=== PATIENT | female | born 1940 | race Caucasian/White ===

== ENCOUNTER 2018-08-03 13:09 | Inpatient (IN) ==
--- NOTE | 2018-08-03 13:26 | XRay Report ---
XR chest 1V portable HISTORY: 77 years-old Female Chest Pain acute atypical chest pain COMPARISON: None available TECHNIQUE: Portable AP view of the chest FINDINGS: Cardiac silhouette is mildly enlarged. Mild right hemidiaphragmatic elevation. There is no pneumothor ax, pleural effusion or overt pulmonary edema. Mild subsegmental left basilar atelectasis. There are possible pleural calcifications about the right hemithorax Degenerative changes of the shoulders and spine. IMPRESSION: No acute process. The above report was generated using voice recognition software. It may contain grammatical, syntax o r spelling errors. Electronically signed by: Dallas Shine M.D. 08/03/2018 1:24 PM
[2018-08-03] MEDS ORDERED: SODIUM CHLORIDE 0.9% 1000ML 500 ML IV ONE (13:31)
[2018-08-03 13:53] LABS: Basophils # (auto) 0.02 K/uL (0-0.2); Basophils % (auto) 0.4 %; Eosinophils # (auto) 0.13 K/uL (0-0.5); Eosinophils % (auto) 2.6 %; Hematocrit (blood only) 32.1 % (37-47); Hemoglobin 10.2 g/dL (12.0-16.0); Immature Granulocytes # (auto) 0.01 K/uL (0.00-0.02); Immature Granulocytes % (auto) 0.2 %; Lymphocytes # (auto) 1.38 K/uL (1.2-3.4); Lymphocytes % (auto) 27.5 %; Mean Corpuscular Hgb Conc 31.8 g/dL (32-36); Mean Corpuscular Volume 86.8 fL (80-100); Mean Platelet Volume 9.5 fL (7.4-10.4); Monocytes # (auto) 0.56 K/uL (0.11-0.59); Monocytes % (auto) 11.2 %; Neutrophils # (auto) 2.92 K/uL (1.4-6.5); Neutrophils % (auto) 58.1 %; Platelet Count 363 K/uL (130-400); RDW Coefficient of Variation 14.4 % (11.5-14.5); RDW Standard Deviation 45.6 fL (36.4-46.3); White Blood Count 5.02 K/uL (4.8-10.8)
[2018-08-03 13:54] LABS: iSTAT Creatinine 0.5 mg/dl (0.6-1.3); iSTAT Hemoglobin 9.9 g/dl (12.0-16.0); iSTAT Ionized Calcium 1.22 mmol/l (1.12-1.32); iSTAT Potassium 4.2 mEq/L (3.3-5.0)
[2018-08-03 14:10] LABS: Albumin Level 3.2 gm/dl (3.4-5.0); BUN Creatinine Ratio 28.3 (10-20); Calcium 9.7 mg/dl (8.5-10.1); Creatinine Clr Calc Pharmacy 66.7 ml/min; Est GFR (African American) 101.2; Est GFR (Non-African American) 87.3; Potassium 4.3 mmol/L (3.5-5.1)
[2018-08-03 14:21] LABS: Albumin Globulin Ratio 0.8 (0.9-2); Bilirubin,Total 0.3 mg/dl (0.2-1); Creatine Kinase MB 6.5 ng/ml (0.5-3.6); Total Protein 7.2 gm/dl (6.4-8.2); Troponin I 1.05 ng/ml (0-0.045)
[2018-08-03] MEDS ORDERED: fentaNYL citrate 100 MCG/2 ML VIAL ONE (15:44)
[2018-08-03] MEDS ORDERED: MIDAZOLAM HCL 1 MG/ML 2ML VIAL ONE (15:44)
[2018-08-03] MEDS ORDERED: NiCARDipine HCL INJ 2.5 MG/ML 10 ML AMP ONE (15:44)
[2018-08-03] MEDS ORDERED: NITROGLYCERIN/D5W 100MCG/ML 20ML SYR ONE (15:45)
[2018-08-03] MEDS: HEPARIN (PORCINE) 1000 UNIT/ML 10 ML (CATH LAB USE ONLY) ONE ×2 (16:48→17:07)
[2018-08-03] MEDS ORDERED: ACETAMINOPHEN 325 MG TAB PO PRN (17:14)
[2018-08-03] MEDS ORDERED: ONDANSETRON INJ 2 MG/ML 2 ML VIAL IV PRN (17:14)
[2018-08-03] MEDS ORDERED: CLOPIDOGREL BISULFATE 300 MG TAB ONE (17:20)
--- NOTE | 2018-08-03 17:26 | Cardiology Consultation ---
Date of Consultation August 03, 2018 Assessment & Plan (1) ACS (acute coronary syndrome): 2. Ischemic cardiomyopathy with inferior wall motion abnormality 3. 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 Dyslipidemia 6. 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 Patient has EKG concerning for inferior NE with associated elevated troponin and inferior wall motion abnormality. She is completely asymptomatic but in the setting of labs and imaging findings concerning for acute NE feel we should proceed with cardiac catheterization to evaluate for high risk disease. Discussed risks, benefits, alternatives of procedure and she and her family are willing to proceed. Further recommendations pending findings of coronary angiography. History of Present Illness Attending Physician: Hank Black MD History of Present Illness Mrs. Chandler is a very pleasant 77-year-old woman with a history of inclusion body myositis on IVIG and CellCept, hypothyroidism, hyperlipidemia who presented to the ED today from her PCP in the setting of inferior ST elevations on EKG. Patient was in her usual state of health and went to her PCP today for a routine checkup. She denies any recent chest pain, new shortness of breath, palpitations or presyncope. She is limited at baseline from her myopathy and states has difficulty getting up from a seated position and using her hands but is able to walk as far she would like without limiting symptoms. At PCPs office EKG was obtained which showed sinus rhythm with inferior ST elevations and was recommended to present to the ED. Upon arrival repeat EKG again showed inferior ST elevations. Patient was completely asymptomatic, and hemodynamically and electrically stable. Initial troponin positive at 1.05. Echocardiogram showed mild LV dysfunction with an EF around 45% and severe inferior, inferolateral and adjacent basal septal hypokinesis. Allergies Allergy/AdvReac Type Severity Reaction Status Date / Time No Known Allergies Allergy Verified 08/03/18 15:20 Home Medications Home Medications Medication Instructions Recorded Confirmed Type Ivig 1 dose IV MONTHLY 08/03/18 08/03/18 History acetaminophen [Tylenol Extra 500 mg PO TID 08/03/18 08/03/18 History Strength] allopurinol 100 mg PO DAILY 08/03/18 08/03/18 History atorvastatin [Lipitor] 10 mg PO QAM 08/03/18 08/03/18 History cholecalciferol (vitamin D3) 2,000 unit PO DAILY 08/03/18 08/03/18 History [Vitamin D3] cyanocobalamin (vitamin B-12) 1,000 mcg IM MONTHLY 08/03/18 08/03/18 History duloxetine [Cymbalta] 60 mg PO HS 08/03/18 08/03/18 History gabapentin [Neurontin] 600 mg PO TID 08/03/18 08/03/18 History levothyroxine 88 mcg PO DAILY 08/03/18 08/03/18 History methylcellulose (with sugar) 1 tbsp PO DAILY 08/03/18 08/03/18 History [Citrucel (sucrose)] mycophenolate mofetil [CellCept] 2 tabs PO BID 08/03/18 08/03/18 History Patient History Medical History History of hysterectomy (Chronic) Inflammatory arthritis (Chronic) Gout (Chronic) Inclusion body myositis (Chronic) 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 (Chronic) HLD (hyperlipidemia) (Chronic) Neuropathy (Chronic) Social History Preferred Language: Turkish Feels Safe at Home: Yes Smoking Status: Never smoker Hx Substance Use: No Review of Systems Review of Systems: 10 point review of systems was completed and was otherwise negative unless stated in HPI Physical Exam Physical Exam: General: Comfortable, no acute distress Eyes: Sclerae anicteric, extraocular movements intact HENT: Oropharynx clear mucous membranes moist Neck: Normal carotid upstrokes, no bruits. No JVD. Lungs: Clear to auscultation bilaterally, no rhonchi or wheezes Cardiac: Regular rate and rhythm, no murmurs, rubs or gallops. Vascular: 2+ radial Abdomen: Soft, nontender, nondistended, positive bowel sounds. Extremities: Well perfused, no peripheral edema Skin: No rashes or lesions. Psych: Alert orient x3, normal affect and mood Results & Data Vital Signs (Past 12 Hours) Vital Signs Temp Pulse Pulse Resp BP BP Pulse Ox 08/03/18 16:05 78 138/78 97 08/03/18 15:30 68 18 138/83 96 08/03/18 15:00 68 18 139/71 97 08/03/18 14:09 82 21 137/72 97 08/03/18 13:57 84 21 152/65 H 97 08/03/18 13:54 77 21 152/65 H 95 08/03/18 13:45 79 21 97 08/03/18 13:30 79 79 21 131/87 131/87 95 08/03/18 13:19 75 21 96 08/03/18 13:17 86 19 135/101 H 96 08/03/18 13:09 37.1 C 81 81 22 135/101 H 135/101 H 97
--- NOTE | 2018-08-03 17:26 | Pre Anesthesia Assessment ---
Date of Service August 03, 2018 Pre Sedation Assessment Vital Signs Temp Pulse Pulse Resp BP BP Pulse Ox 08/03/18 16:05 78 138/78 97 08/03/18 15:30 68 18 138/83 96 08/03/18 15:00 68 18 139/71 97 08/03/18 14:09 82 21 137/72 97 08/03/18 13:57 84 21 152/65 H 97 08/03/18 13:54 77 21 152/65 H 95 08/03/18 13:45 79 21 97 08/03/18 13:30 79 79 21 131/87 131/87 95 08/03/18 13:19 75 21 96 08/03/18 13:17 86 19 135/101 H 96 08/03/18 13:09 37.1 C 81 81 22 135/101 H 135/101 H 97 Cardiovascular RRR, no murmur, no edema Respiratory normal respiratory effort, lungs clear to auscultation Pre-Sedation Airway Assessment Smoking Status: Never smoker Hx Sleep Apnea: No Hx Difficult Intubation: No Short, Thick Neck: No Thyromental Distance: > or= 3.5 Finger Breadths Oral Cavity: + Dentures Mallampati Class: III ASA: ASA4 NPO Status Date of Last Intake of Fluids: 08/02/18 Date of Last Intake of Solid Food: 08/02/18 Procedure Planning Contraindications for Sedation: none Current Medications Reviewed: Yes Notes The planned sedation has been discussed with the patient. Informed Consent was obtained. I have identified the patient, determined the appropriateness of sedation and have assessed the patient immediately prior to the procedure. All medicine(s) and interventions are by my order.
--- NOTE | 2018-08-03 17:30 | Post Anesthesia Assessment ---
Date of Service August 03, 2018 Post Sedation Assessment Vital Signs Temp Pulse Pulse Resp BP BP Pulse Ox 08/03/18 16:05 78 138/78 97 08/03/18 15:30 68 18 138/83 96 08/03/18 15:00 68 18 139/71 97 08/03/18 14:09 82 21 137/72 97 08/03/18 13:57 84 21 152/65 H 97 08/03/18 13:54 77 21 152/65 H 95 08/03/18 13:45 79 21 97 08/03/18 13:30 79 79 21 131/87 131/87 95 08/03/18 13:19 75 21 96 08/03/18 13:17 86 19 135/101 H 96 08/03/18 13:09 37.1 C 81 81 22 135/101 H 135/101 H 97 Recovery Score Activity: Moves 4 extremities Respiration: Deep Breath/Cough Circulation: +/-20% PreAnes Value Consciousness: Fully Awake Oxygen Saturation: O2 needed for >90% Discharge Sedation Level of Care: Fast Track Phase II Post Sedation Plan On clinical assessment, the patient appears to have tolerated the sedation without complications. Patient is recovering as anticipated. Patient will continue to be monitored by nursing and may be discharged when sedation discharge criteria are met per below protocol. Upon Completions of procedure and additional 15 minutes continue every 5 minute vital signs and the P.A.R. score; then discharge to a Phase I or Fast Track to Phase II per the following guidelines: * Discharge Patient to appropriate Phase II area if PAR is 8 or greater or return to pre- procedure baseline. The post - procedure orders will be as directed. * If PAR score is less than 8 or not return to pre-procedure baseline then patient will follow Phase I monitoring till PAR is reached for Phase II. The Phase I may be done in procedure room or may call to secure a Phase I area. * If naloxone or flumazenil are used for reversal, hold in Phase I for continued monitoring from when last reversal dose was given for a minimum of 60 minutes or longer pending the nurse and/or physician discretion of patient condition before discharge to Phase II. Please call the Sedation Physician to re-evaluate and complete post-note for discharge to Phase II area. Do NOT discharge from procedure sedation or Phase 1 until post- sedation evaluation note is complete by procedure /sedation MD Sedation Discharge Instructions to be given to the patient at discharge to home.
--- NOTE | 2018-08-03 17:42 | Cardiac Catheterization ---
Cardiac Cath Procedure Full Procedure Date August 03, 2018 Pre-Procedure Diagnosis Pre-Procedure Diagnosis: Non STEMI AUC Score AUC Score: 8 Post-Procedure Diagnosis Post-Procedure Diagnosis: Severe CAD, Successful PCI and Elevated Intracardiac Pressures Procedure(s) Performed Procedure(s) Performed: Coronary Angiography, Left Heart Cath and Drug Eluting Stent Baton Twirler Hank Black MD End Matcher(s) Sheila Estimated Blood Loss Estimated Blood Loss: 15 Medication(s) Medication(s): Clopidogrel, Fentanyl, Heparin, Lidocaine 1%, Nicardipine, Nitroglycerin and Versed Summary of Findings Indication: ACS 77-year-old woman found to have incidental new inferior ST elevations on EKG with PCP. Asymptomatic on arrival to ED but with elevated troponin and inferior wall motion abnormality. Access: 6 Fr right radial artery Catheters: [place], AR-1 guide, EBU 3.5 guide Findings: LM -short without significant disease LAD -moderate caliber vessel, mild diffuse proximal mid disease, 30% mid segment disease, small vessel as wraps around apex Circumflex -moderate caliber vessel, 70% distal stenosis prior to takeoff of moderate caliber left PLB. 2 small OM's, PLB without significant disease. RCA -moderate caliber vessel, diffuse mild proximal mid disease. 99% focal mid RCA stenosis at takeoff of acute marginal, mildly calcified, NAYELI 2 flow post- stenosis. Luminal irregularities distally LVEDP -18 -- PCI -- Antithrombotic therapy: Heparin, clopidogrel Procedure: RCA cannulated with AR-1 guide Nipping Machine Operator 50 wire passed across lesion into distal vessel Mid RCA lesion predilated with 2.5 compliant balloon Dilated lesion stented with 3.0 x 18 mm Xience Haley Stent post-dilated with 3.5 noncompliant balloon Post procedure NAYELI 3 flow, stent well expanded with minimal residual stenosis and no apparent cardiac complications. Left main cannulated with EBU 3.5 guide Nipping Machine Operator 50 wire passed across lesion into distal PLB Distal circumflex stenosis dilated with 2.5 balloon Distal circumflex stented with 2.5 x 15 mm Xience Haley KIM Stent postdilated with stent balloon Post procedure NAYELI 3 flow, stent well expanded with minimal residual stenosis and no apparent cardiac complications. Arterial Closure: TR band Summary: 1. Severe multi vessel coronary artery disease -99% earlymid RCA (NAYELI 2 flow in distal vessel). 70% distal circumflex 2. Mildly elevated intracardiac filling pressure 3. Successful PCI of mid RCA with single drug-eluting stent (3.0 x 18 mm Xience Haley; postdilated with 3.5 NC). 4. Successful PCI of distal circumflex with single drug-eluting stent (2.5 x 15 mm Xience Haley). Recommendations: To PCU for continued monitoring Loaded with clopidogrel 600 mg in laborer orchard Continue dual-antiplatelet therapy for ideally 1 year Continue statin, and ASCVD risk factor modification Start IMMANUEL, beta-laurie for mild cardiomyopathy Consult cardiac Rehab Hemodynamics Rest Ao:: 140/56/96 Final Ao: 162/62/106 LV: 137/18 Recommendations Recommendations: PCI without planned CABG Specimens Specimens: None Radiation Exposure (mGy) 1791 Contrast (mls) 110 Fluids (cc crystalloids) Fluids (cc crystalloids): 90 Drains Drains: none Anesthesia moderate Procedural Complication(s) None Disposition PCU ACC Data: Inspector Toys Cardiac Status Clinical evaluation leading to the procedure CAD Presenation: Non STEMI Anginal Classification: CCS IV Heart Failure: No Cardiogenic Shock within 24 Hours: No Cardiac Arrest within 24 Hours: No Imaging Studies Past 6 Months: Yes Stress Studies Past 6 Months: No Diagnostic Physicians Name: Hank Black MD Status: Urgent Closure Device Percutaneous Entry Location: Radial Closure Device: Radial Band Recommendations: PCI without planned CABG PCI Indication: PCI for high risk Non-MANAS First Noted: First EKG Lesion Segment Name: mid RCA Culprit Artery: Yes Stenosis Prior to Rx (%): 99 Chronic Total Occlusion: No IVUS: No FFR: No Pre-Procedure NAYELI Flow: 2 Previously Treated Lesion: No Lesion Complexity: Non-High/Non-C Lesion Length (mm): 12 Thrombus Present: Yes Bifurcation Lesion: No Guidewire Across Lesion: Stenosis Post-Procedure (%): 0 Post-Procedure NAYELI Flow: 3 Devices(s) Deployed: Yes Yes Lesion #2 Segment Name: distal circumflex Culprit Artery: No Stenosis Prior to Rx (%): 70 Chronic Total Occlusion: No IVUS: No FFR: No Pre-Procedure NAYELI Flow: 3 Previously Treated Lesion: No Lesion Complexity: Non-High/Non-C Lesion Length (mm): 12 Thrombus Present: No Bifurcation Lesion: No Guidewire Across Lesion: Yes Stenosis Post-Procedure (%): 0 Post-Procedure NAYELI Flow: 3 Devices(s) Deployed: Yes Intraprocedure Events Significant Disection: No Perforation: No
[2018-08-03] MEDS ORDERED: LISINOPRIL 5 MG TAB PO ONE (18:15)
[2018-08-03] MEDS ORDERED: SODIUM CHLORIDE 0.9% 1000ML 1,000 ML IV SCH (18:15)
--- NOTE | 2018-08-03 19:13 | History & Physical Report ---
Date of Service August 03, 2018 Assessment & Plan (1) ACS (acute coronary syndrome): (2) S/P cardiac cath: Pt at PCP today for routine follow up. An EKG was completed and showed ST elevation in inferior leads and pt was transported to [facility] ER via ACLS. Pt denied CP, SOB. In ER troponin: 1.[address] elevation to inferior leads. Echo:EF: 45- 50%, severe inferior hypokinesis and some dyskinesis as well as septal akinesis from mid ventricle to apex Pt was taken to the cardiac picket [facility] and received 1 KIM to mid RCA and 1 KIM to distal circumflex by Dr Black. -Pt was loaded with plavix -PCU for monitoring -trend troponin -lipid panel and A1c in am -Cardiology consult - recommends: Continue dual-antiplatelet therapy for ideally 1 year Continue statin, and ASCVD risk factor modification Start IMMANUEL, beta-laurie for mild cardiomyopathy (3) 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: TSH in am -Continue levothyroxine (4) HLD (hyperlipidemia): -statin dosage increased per cardiology (5) Inclusion body myositis: Pt follows with Dr Snow at [facility]. On monthly IVIG -continue cellcept (6) Gout: -Continue allopurinol (7) Neuropathy: -Continue gabapentin DVT Prophylaxis -SCDs Full Code as per discussion with pt Follows with Dr Vanegas for routine care Pt was seen with Dr Hudson. See addendum History of Present Illness Chief Complaint: Abnormal EKG Primary Care Provider: Elizabeth Vanegas, Pt is 77 y/o F with PMH hypothyroidism, inclusion body myositis on monthly IVIG, gout, inflammatory arthritis, neuropathy, HLD presented to ER from PCPs office for abnormal EKG. Pt at PCP today for routine follow up. An EKG was completed and showed ST elevation in inferior and lateral leads and pt was transported to [facility] ER via ACLS. Pt denied CP, SOB. In ER troponin: 1.0. Pt was taken to the cardiac picket [facility] and received 1 KIM to mid RCA and 1 KIM to distal circumflex. Pt doing well post cath and denies any CP, SOB. Reports chronic loose stools. Denies fever/chills, diaphoresis, N/V/C, ANDREWS, dizziness, syncope, vision changes, neck pain, orthopnea, palpitations, cough, sore throat, choking, otalgia, rhinorrhea, abdominal pain, paresthesias, weakness, extremity weakness, extremity edema, rashes, urinary symptoms. Allergies Allergy/AdvReac Type Severity Reaction Status Date / Time No Known Allergies Allergy Verified 08/03/18 15:20 Home Medications Home Medications Medication Instructions Recorded Confirmed Type Ivig 1 dose IV MONTHLY 08/03/18 08/03/18 History acetaminophen [Tylenol Extra 500 mg PO TID 08/03/18 08/03/18 History Strength] allopurinol 100 mg PO DAILY 08/03/18 08/03/18 History atorvastatin [Lipitor] 10 mg PO QAM 08/03/18 08/03/18 History cholecalciferol (vitamin D3) 2,000 unit PO DAILY 08/03/18 08/03/18 History [Vitamin D3] cyanocobalamin (vitamin B-12) 1,000 mcg IM MONTHLY 08/03/18 08/03/18 History duloxetine [Cymbalta] 60 mg PO HS 08/03/18 08/03/18 History gabapentin [Neurontin] 600 mg PO TID 08/03/18 08/03/18 History levothyroxine 88 mcg PO DAILY 08/03/18 08/03/18 History methylcellulose (with sugar) 1 tbsp PO DAILY 08/03/18 08/03/18 History [Citrucel (sucrose)] mycophenolate mofetil [CellCept] 2 tabs PO BID 08/03/18 08/03/18 History Past Med/Surg History Medical History History of hysterectomy (Chronic) Inflammatory arthritis (Chronic) Gout (Chronic) Inclusion body myositis (Chronic) 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 (Chronic) HLD (hyperlipidemia) (Chronic) Neuropathy (Chronic) Social History Preferred Language: Azeri Communication Ability: Effective C D Reactor Operator Required: Yes Beliefs That Will Affect Care: None Current Living Situation: Alone Other Information That Helps Us Care for You: No Feels Safe at Home: Yes Safety Concerns: Feels Safe At This Time Smoking Status: Never smoker Hx Alcohol Use: No Hx Substance Use: No Review of Systems Review of Systems: All systems reviewed & are unremarkable except as noted in HPI & below Physical Exam Physical Exam: General: no acute distress, WDWN Head: normocephalic, atraumatic Eyes: conjunctiva non-injected, anicteric ENT: normal inspection external ears, nose, mucous membranes moist Neck: supple, trachea midline Lungs: clear, no respiratory distress, no wheezing/rhonchi/rales CV: RRR, no murmur, no pretibial edema Abd: normal BS, soft, non-tender Ext: no cyanosis, no calf tenderness; right wrist with band in place without breathing Neuro: A&O x 3, no focal deficits noted, normal affect Skin: warm, dry Results & Data Vital Signs (Past 12 Hours) Vital Signs Temp Pulse Pulse Resp BP BP Pulse Ox 08/03/18 18:48 37.1 C 96 H 16 149/77 H 96 08/03/18 18:27 84 08/03/18 18:21 88 16 136/60 94 08/03/18 18:01 37.0 C 88 16 143/83 H 94 08/03/18 16:05 78 138/78 97 08/03/18 15:30 68 18 138/83 96 08/03/18 15:00 68 18 139/71 97 08/03/18 14:09 82 21 137/72 97 08/03/18 13:57 84 21 152/65 H 97 08/03/18 13:54 77 21 152/65 H 95 08/03/18 13:45 79 21 97 08/03/18 13:30 79 79 21 131/87 131/87 95 08/03/18 13:19 75 21 96 08/03/18 13:17 86 19 135/101 H 96 08/03/18 13:09 37.1 C 81 81 22 135/101 H 135/101 H 97 Laboratory Results Short CBC 08/03/18 Range/Units 13:24 WBC 5.02 (4.8-10.8) K/uL Hgb 10.2 L (12.0-16.0) g/dL Hct 32.1 L (37-47) % Plt Count 363 (130-400) K/uL BMP 08/03/18 13:24 Sodium 138 Potassium 4.3 Chloride 110 H Carbon Dioxide 21 BUN 17 Creatinine 0.60 Glucose 87 Calcium 9.7 Cardiac Enzymes 08/03/18 Range/Units 13:24 Total Creatine Kinase 97 (26-192) U/L CK-MB (CK-2) 6.5 H (0.5-3.6) ng/ml Troponin I 1.050 H* (0-0.045) ng/ml Liver Function 08/03/18 Range/Units 13:24 Total Bilirubin 0.3 (0.2-1) mg/dl AST 20 (15-37) U/L ALT 18 (12-78) U/L Alkaline Phosphatase 143 H (45-117) U/L Albumin 3.2 L (3.4-5.0) gm/dl Diagnostic Findings CXR: IMPRESSION: No acute process. ECG Rate (beats per minute): 89 Rhythm: sinus rhythm Findings: + ST elevation (Inferior) Supervising Physician Co-Signing Physician Notes Attending addendum. 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
[2018-08-03] MEDS: METOPROLOL SUCC 25MG EXT REL TAB PO SCH (19:48)
[2018-08-03] MEDS: GABAPENTIN 600 MG TAB PO SCH (19:49)
[2018-08-03] MEDS: MYCOPHENOLATE MOFETIL 250 MG CAP PO SCH (19:49)
[2018-08-03] MEDS ORDERED: DULOXETINE HCL 60 MG CAP PO SCH (21:00)
[2018-08-03 23:51] LABS: Prothrombin Time 10.5 Seconds (9.0-12.0)
[2018-08-04 05:52] LABS: Basophils # (auto) 0.03 K/uL (0-0.2); Basophils % (auto) 0.5 %; Eosinophils # (auto) 0.15 K/uL (0-0.5); Eosinophils % (auto) 2.7 %; Hematocrit (blood only) 32.1 % (37-47); Hemoglobin 10.2 g/dL (12.0-16.0); Immature Granulocytes # (auto) 0.01 K/uL (0.00-0.02); Immature Granulocytes % (auto) 0.2 %; Lymphocytes # (auto) 0.99 K/uL (1.2-3.4); Lymphocytes % (auto) 18.1 %; Mean Corpuscular Hgb Conc 31.8 g/dL (32-36); Mean Corpuscular Volume 88.7 fL (80-100); Mean Platelet Volume 9.4 fL (7.4-10.4); Monocytes # (auto) 0.74 K/uL (0.11-0.59); Monocytes % (auto) 13.5 %; Neutrophils # (auto) 3.56 K/uL (1.4-6.5); Platelet Count 357 K/uL (130-400); RDW Coefficient of Variation 14.3 % (11.5-14.5); RDW Standard Deviation 46.6 fL (36.4-46.3); Red Blood Count 3.62 M/uL (4.2-5.4); White Blood Count 5.48 K/uL (4.8-10.8)
[2018-08-04 06:19] LABS: Troponin I 2.16 ng/ml (0-0.045)
[2018-08-04 06:27] LABS: Estimated Average Glucose 108 mg/dl; Hemoglobin A1C 5.4 % (4.5-5.6)
[2018-08-04] MEDS ORDERED: LEVOTHYROXINE SODIUM 88 MCG TABLET PO SCH (06:30)
[2018-08-04] MEDS: GABAPENTIN 600 MG TAB PO SCH ×2 (07:39→14:29)
[2018-08-04] MEDS: MYCOPHENOLATE MOFETIL 250 MG CAP PO SCH (07:39)
[2018-08-04] MEDS ORDERED: CLOPIDOGREL BISULFATE 75 MG TAB PO SCH (09:00)
[2018-08-04] MEDS ORDERED: ALLOPURINOL 100 MG TAB PO SCH (09:00)
[2018-08-04] MEDS ORDERED: ATORVASTATIN 40 MG TAB PO SCH (09:00)
[2018-08-04] MEDS ORDERED: ASPIRIN 81 MG ECTAB PO SCH (09:00)
[2018-08-04] MEDS ORDERED: CHOLECALCIFEROL 1,000 UNITS TAB PO SCH (09:00)
[2018-08-04] MEDS: METOPROLOL SUCC 25MG EXT REL TAB PO SCH (10:02)
--- NOTE | 2018-08-04 12:20 | Cardiology Progress Note ---
Date of Service August 04, 2018 Assessment & Plan (1) ACS (acute coronary syndrome): 2. Ischemic cardiomyopathy with inferior wall motion abnormality 3. 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 Dyslipidemia 6. 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 Patient found to have multivessel coronary artery disease on coronary angiography yesterday. Now post PCI with KIM to mid RCA, distal circumflex. Patient has done well post procedure. She remains chest pain-free. No access site complications. Post procedure lab studies stable. From a cardiac standpoint doing well and okay for discharge today. Home on following cardiac meds: Aspirin 81 mg daily -Clopidogrel 75 mg daily Toprol-XL 25 mg daily Atorvastatin 40 mg daily Follow-up with me in 2 weeks. Subjective Patient feeling well today. No chest pain, no significant shortness of breath. No pain at right radial access site. Next Telemetry reviewedno events. Review of Systems Review of Systems: All systems reviewed & are unremarkable except as noted in HPI & below Physical Exam Physical Exam: General: Comfortable, no acute distress Eyes: Sclerae anicteric, extraocular movements intact HENT: Oropharynx clear mucous membranes moist Neck: Normal carotid upstrokes, no bruits. No JVD. Lungs: Clear to auscultation bilaterally, no rhonchi or wheezes Cardiac: Regular rate and rhythm, no murmurs, rubs or gallops. Vascular: Right radial artery access site with no ecchymosis, hematoma. Distal pulse and sensation intact. Abdomen: Soft, nontender, nondistended, positive bowel sounds. Extremities: Well perfused, no peripheral edema Skin: No rashes or lesions. Psych: Alert orient x3, normal affect and mood Results & Data Vital Signs (Past 12 Hours) Vital Signs Temp Pulse Pulse Resp BP Pulse Ox 08/04/18 10:02 78 95/62 L 08/04/18 07:36 36.4 C L 74 16 96/59 L 97 08/04/18 03:32 36.7 C 59 L 18 105/64 97
--- NOTE | 2018-08-04 13:17 | Hospitalist Progress Note ---
Date of Service August 04, 2018 Assessment & Plan (1) ACS (acute coronary syndrome): (2) S/P cardiac cath: Pt at PCP for routine follow up. An EKG was completed and showed ST elevation in inferior leads and pt was transported to [facility] ER via ACLS. Pt denied any symptoms In ER troponin: 1.[address] elevation to inferior leads. Echo:EF: 45- 50%, severe inferior hypokinesis and some dyskinesis as well as septal akinesis from mid ventricle to apex Pt was taken to the cardiac cathodic protection technician and received 1 KIM to mid RCA and 1 KIM to distal circumflex by Dr Black on 08/03/18. -S/P Plavix loading -To be discharged on ASA 81 mg, Atorvastatin 40 mg q HS, Plavix 75 mg daily, Toprol XL 25 mg daily. 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 Subjective Patient feeling well today. No chest pain, no significant shortness of breath. No pain at right radial access site. Telemetry reviewedno events. Eager to be discharged Physical Exam Physical Exam: General: AAOX3, no distress Head: normocephalic, atraumatic Lungs: clear, no respiratory distress, no wheezing/rhonchi/rales CV: RRR, no murmur, no pretibial edema Ext: no cyanosis, no calf tenderness; right wrist with band in place without breathing Results & Data Vital Signs (Past 12 Hours) Vital Signs Temp Pulse Pulse Resp BP Pulse Ox 08/04/18 10:02 78 95/62 L 08/04/18 07:36 36.4 C L 74 16 96/59 L 97 08/04/18 03:32 36.7 C 59 L 18 105/64 97
--- NOTE | 2018-08-04 13:57 | Discharge Summary ---
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 Pt at PCP today for routine follow up. An EKG was completed and showed ST elevation in inferior and lateral leads and pt was transported to [facility] ER via ACLS. Pt denied CP, SOB. In ER troponin: 1.0. Pt was taken to the cardiac bolt labeler and received 1 KIM to mid RCA and 1 KIM to distal circumflex. Pt doing well post cath and denies any CP, SOB. Reports chronic loose stools. Denies fever/chills, diaphoresis, N/V/C, ANDREWS, dizziness, syncope, vision changes, neck pain, orthopnea, palpitations, cough, sore throat, choking, otalgia, rhinorrhea, abdominal pain, paresthesias, weakness, extremity weakness, extremity edema, rashes, urinary symptoms. Principal Diagnosis 1. STEMI 2. S/P Cardiac cath- 2 drug eluting stent placeed (Mid RCA , Distal circumflex) SECONDARY DIAGNOSIS ON DISCHARGE 1. 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2 2. Dyslipidemia 3. Inclusion body myositis 4. Gout 5. Neuropathy Discharge Exam General: AAOX3, no distress Head: normocephalic, atraumatic Lungs: clear, no respiratory distress, no wheezing/rhonchi/rales CV: RRR, no murmur, no pretibial edema Ext: no cyanosis, no calf tenderness; right wrist with band in place without breathing Discharge Data Allergies Allergy/AdvReac Type Severity Reaction Status Date / Time No Known Allergies Allergy Verified 08/03/18 15:20 Consultations 08/03/18 14:51 Consult Cardiology Stat ED Decision to Admit Stat 08/03/18 17:18 Consult Cardiac Rehabilitation Routine Procedures Performed Operation Date: 08/03/18 15:30 Actual Procedures p Cath, Left with Cors and Vent(Right) - Edouard Black MD s Drug Eluting Stent SGl Vessel - Edouard Black MD s Drug Eluting Stent each ADDTL Vessel - Edouard Black MD s Cineradiography w/Routine Exam - Edouard Black MD Ordered Studies 08/03/18 15:44 CL Cath Imgs for PACS use only Stat Hospital Course (1) ACS (acute coronary syndrome): (2) S/P cardiac cath: Pt at [facility] for routine follow up. An EKG was completed and showed ST elevation in inferior leads and pt was transported to [facility] ER via ACLS. Pt denied any symptoms In ER troponin: 1.[address] elevation to inferior leads. Echo:EF: 45- 50%, severe inferior hypokinesis and some dyskinesis as well as septal akinesis from mid ventricle to apex Pt was taken to the cardiac bolt labeler and received 1 KIM to mid RCA and 1 KIM to distal circumflex by Dr Black on 08/03/18. -S/P Plavix loading -To be discharged on ASA 81 mg, Atorvastatin 40 mg q HS, Plavix 75 mg daily, Toprol XL 25 mg daily. 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 Total Time Total Time Spent Total Time Spent (In Minutes): 35 minutes Discharge Plan Discharge Items Patient Disposition: Home - Self-Care Reason For Visit: ACS Discharge Diagnosis: STEMI (Heart Attack) Status post cardiac cath- 2 stent placementments Discharge Goals: Improve disease control Activity: Resume your previous activity Non-emergency contact: Primary Care Provider Call non-emergency contact if: your symptoms worsen Follow-up/Referrals: Isabel Banda [Other] - 08/09/18 10:45 am Diet: Heart Healthy Addtl Provider Instructions: You were admitted to hospital for heart attack, You had a cardiac cath with 2 stent (drug eluting stent placements) on 08/03/18 MEDICATION CHANGES NEW MEDICATIONS: 1. Aspirin 81 mg daily 2. Atorvastatin 40 mg q HS 3. Toprol XL 25 mg daily 4. Plavix 75 mg daily Prescriptions: New clopidogrel 75 mg Tablet 75 mg PO QAM 30 Days Qty: 30 RF: 0 aspirin [Ecotrin Low Strength] 81 mg Tablet,Delayed Release (Dr/Ec) 81 mg PO QAM 30 Days Qty: 30 RF: 0 metoprolol succinate 25 mg Tablet Extended Release 24 Hr 25 mg PO QAM 30 Days Qty: 30 RF: 0 atorvastatin 40 mg tablet 40 mg PO DAILY Qty: 30 RF: 0 Continued gabapentin [Neurontin] 600 mg tablet 600 mg PO TID RF: 0 allopurinol 100 mg Tablet 100 mg PO DAILY RF: 0 mycophenolate mofetil [CellCept] 500 mg tablet 2 tabs PO BID RF: 0 levothyroxine 88 mcg tablet 88 mcg PO DAILY RF: 0 cyanocobalamin (vitamin B-12) 1,000 mcg/mL Solution 1,000 mcg IM MONTHLY RF: 0 duloxetine [Cymbalta] 30 mg capsule,delayed release(DR/EC) 60 mg PO HS RF: 0 cholecalciferol (vitamin D3) [Vitamin D3] 1,000 unit Tablet 2,000 unit PO DAILY RF: 0 Citrucel (sucrose) Powder 1 tbsp PO DAILY RF: 0 Ivig 1 dose IV MONTHLY RF: 0 Discontinued atorvastatin [Lipitor] 10 mg tablet 10 mg PO QAM RF: 0 acetaminophen [Tylenol Extra Strength] 500 mg tablet 500 mg PO TID RF: 0 Stand-Alone Forms: [facility] Discharge Orders: Discharge Order (Routine); Ordered 08/04/18 Ordered By: Keshia Tavarez Admission Data Admit Date/Time: 08/03/18 17:12 Attending Provider: Navya Hudson Admit Provider: Edouard Black Primary Care Provider: Elizabeth Vanegas Other Providers: Edouard Black ; Navya Hudson Service: Telemetry
--- NOTE | 2018-08-04 18:59 | Emergency Department Note ---
Entered by Nory Patiño acting as a scribe for Sidney Alfaro MD History of Present Illness General Chief complaint: Cardiac Assessment Stated complaint: chest pain Time Seen by Provider: 08/03/18 13:10 Source: patient Mode of arrival: EMS Limitations: no limitations History of Present Illness Provider complaint: Cardiac assessment Onset (ago): hour(s) less than 1 Location: chest Maximum Pain Intensity: 0 Associated symptoms: + denies other symptoms; no chest pain, no fever/chills, no nausea/vomiting and no shortness of breath Treatments prior to arrival: other (x4 aspirin) Patient is a 77 year old female presenting to the ED via EMS with 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 Patient states that she was seen at her PCPs office today for routine checkup and EKG showed abnormalities, prompting patient to report to ED. She denies any CP, SOB, nausea, vomiting, neck pain, abd pain or anything at this moment. EMS reports patient was given x4 aspirin in the unit. Patient shares she did have a holter monitor last year, and has hx of neuropathy. Patient also has hx of severe atrophy in the arms and legs. Home Medications Home Medications Medication Instructions Recorded Confirmed Type Citrucel (sucrose) 1 tbsp PO DAILY 08/03/18 08/03/18 History Ivig 1 dose IV MONTHLY 08/03/18 08/03/18 History allopurinol 100 mg PO DAILY 08/03/18 08/03/18 History cholecalciferol (vitamin D3) 2,000 unit PO DAILY 08/03/18 08/03/18 History [Vitamin D3] cyanocobalamin (vitamin B-12) 1,000 mcg IM MONTHLY 08/03/18 08/03/18 History duloxetine [Cymbalta] 60 mg PO HS 08/03/18 08/03/18 History gabapentin [Neurontin] 600 mg PO TID 08/03/18 08/03/18 History levothyroxine 88 mcg PO DAILY 08/03/18 08/03/18 History mycophenolate mofetil [CellCept] 2 tabs PO BID 08/03/18 08/03/18 History aspirin [Ecotrin Low Strength] 81 mg PO QAM 30 Days #30 tab 08/04/18 Rx atorvastatin 40 mg PO DAILY #30 tab 08/04/18 Rx clopidogrel 75 mg PO QAM 30 Days #30 tab 08/04/18 Rx metoprolol succinate 25 mg PO QAM 30 Days #30 tab 08/04/18 Rx Allergies Allergy/AdvReac Type Severity Reaction Status Date / Time No Known Allergies Allergy Verified 08/03/18 15:20 Past Med/Surg History Medical History History of hysterectomy (Chronic) Inflammatory arthritis (Chronic) Gout (Chronic) Inclusion body myositis (Chronic) 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 (Chronic) HLD (hyperlipidemia) (Chronic) Neuropathy (Chronic) Social History Preferred Language: Czech Communication Ability: Effective 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 and A total of 10 systems reviewed and were otherwise negative Physical Exam Vital Signs Vital Signs - 24 hr 08/03/18 21:07 08/03/18 23:45 08/04/18 03:32 Temperature 36.4 C L 36.7 C Temperature Source Oral Oral Pulse Rate [Apical] 72 77 59 L Pulse Rate [Right Finger] Pulse Rhythm [Right Finger] Pulse Strength [Right Finger] Respiratory Rate 17 18 Respiratory Effort / Characteristics Respiratory Depth Respiratory Pattern Blood Pressure [Left Arm] 103/59 L 105/64 Blood Pressure [Right Arm] 121/82 Blood Pressure Mean [Left Arm] 73 77 Blood Pressure Mean [Right Arm] 95 Blood Pressure Position [Left Arm] Lying Lying Pulse Oximetry 95 97 Oxygen Delivery Method Room Air Room Air 08/04/18 07:36 08/04/18 10:02 08/04/18 14:19 Temperature 36.4 C L 36.4 C L Temperature Source Oral Pulse Rate [Apical] Pulse Rate [Right Finger] 74 78 78 Pulse Rhythm [Right Finger] Regular Pulse Strength [Right Finger] Normal Respiratory Rate 16 16 Respiratory Effort / Characteristics Non-Labored Spontaneous Respiratory Depth Normal Respiratory Pattern Regular Blood Pressure [Left Arm] 96/59 L 95/62 L 95/62 L Blood Pressure [Right Arm] 121/82 Blood Pressure Mean [Left Arm] 71 73 Blood Pressure Mean [Right Arm] Blood Pressure Position [Left Arm] Sitting Pulse Oximetry 97 97 Oxygen Delivery Method Room Air GENERAL: Awake, alert, well-appearing, in no acute distress HENT: Normocephalic, atraumatic. Oropharynx unremarkable. EYES: Normal conjunctiva. Sclera non-icteric. NECK: Supple. No nuchal rigidity. FROM. No JVD. RESPIRATORY: Clear to auscultation. CARDIAC: Regular rate, normal rhythm. Extremities warm and well perfused. Pulses equal. ABDOMEN: Soft, non-distended. No tenderness to palpation. No rebound or guarding. No masses. RECTAL: Deferred. MUSCULOSKELETAL: Chest examination reveals no tenderness. The back is symmetrical on inspection without obvious abnormality. There is no CVA tenderness to palpation. No joint edema. LOWER EXTREMITIES: Calves are equal size bilaterally and non-tender. No edema. No discoloration. NEURO: Normal sensorium. No sensory or motor deficits noted. SKIN: No rash or jaundice noted. Course 1310: Patient was evaluated in room A01. A full history and physical examination were obtained. 1318: Updated patient and family on plan for casing material weigher consultation. Family shares that patient does have hx of IBG and severe atrophy in the legs and arms. Daughter shares she did have IVIG x3 months ago, which showed irregular rhythm and bradycardia. 1319: Discussed case with Dr. Black, casing material weigher, who recommends a cardio alert to not be called 1415: Patient moved to room C02B 1428: Discussed case with Ada Mcadams PA-C, who accepts patient for admission. Administered Medications Discontinued Medications Acetaminophen (Tylenol) 650 mg PO Q4H PRN PRN Reason: Mild Pain (scale 1-3) Stop: 09/02/18 17:13 Last Admin: 08/03/18 19:51 Dose: 650 mg Documented by: [id number] Allopurinol (Zyloprim) 100 mg PO DAILY [facility] Stop: 09/03/18 08:59 Last Admin: 08/04/18 07:39 Dose: 100 mg Documented by: [id number] Aspirin (Ecotrin Ectab) [facility] [place] Stop: 09/03/18 08:59 Last Admin: 08/04/18 07:40 Dose: 81 mg Documented by: [id number] Atorvastatin Calcium (Lipitor) 80 mg PO QAM [facility] Stop: 09/03/18 08:59 Last Admin: 08/04/18 07:40 Dose: 80 mg Documented by: [id number] Clopidogrel Bisulfate (Plavix) 75 mg PO QAM [facility] Stop: 09/03/18 08:59 Last Admin: 08/04/18 07:39 Dose: 75 mg Documented by: [id number] Clopidogrel Bisulfate (Plavix) Confirm Administered Dose 600 mg .ROUTE .STK-MED ONE Stop: 08/03/18 17:21 Last Admin: 08/03/18 18:25 Dose: Not Given Documented by: [id number] Duloxetine HCl (Cymbalta) 60 mg PO HS [facility] Stop: 09/02/18 20:59 Last Admin: 08/03/18 19:50 Dose: 60 mg Documented by: [id number] Fentanyl Citrate (Fentanyl Citrate) Confirm Administered Dose 100 mcg .ROUTE .STK-MED ONE Stop: 08/03/18 15:45 Last Increment: 08/03/18 17:07 Dose: 25 mcg Documented by: [id number] Increment: 08/03/18 16:48 Dose: 25 mcg Documented by: [id number] Gabapentin (Neurontin) 600 mg PO TID [facility] Stop: 09/02/18 20:59 Last Admin: 08/04/18 14:29 Dose: 600 mg Documented by: [id number] Admin: 08/04/18 07:39 Dose: 600 mg Documented by: [id number] Admin: 08/03/18 19:49 Dose: 600 mg Documented by: [id number] Heparin Sodium (Porcine) (Heparin Iv Bolus (Photonics Engineering Technician Use Only)) Confirm Administered Dose 10,000 units .ROUTE .STK-MED ONE Stop: 08/03/18 15:45 Last Admin: 08/03/18 17:07 Dose: 9,000 units Documented by: [id number] Heparin Sodium/Sodium Chloride (Heparin/Nss 1000 Unit/500ml Flush Bag) Confirm Administered Dose 3,000 units IV .STK-MED ONE Stop: 08/03/18 15:46 Last Admin: 08/03/18 16:18 Dose: 3,000 units Documented by: [id number] Sodium Chloride (Nss 1000ml) 500 mls @ 999 mls/hr IV .Q31M ONE Stop: 08/03/18 14:01 Last Infusion: 08/03/18 14:04 Dose: 0 mls/hr Documented by: [id number] Admin: 08/03/18 13:33 Dose: 999 mls/hr Documented by: [id number] Sodium Chloride (Nss 1000ml) 1,000 mls @ 100 mls/hr IV .Q10H [facility] Stop: 08/03/18 23:14 Last Infusion: 08/04/18 03:09 Dose: 0 mls/hr Documented by: [id number] Admin: 08/03/18 18:13 Dose: 100 mls/hr Documented by: [id number] Levothyroxine Sodium (Synthroid) 88 mcg PO DAILYBB [facility] Stop: 09/03/18 06:29 Last Admin: 08/04/18 06:00 Dose: 88 mcg Documented by: [id number] Lisinopril (Zestril) 5 mg PO NOW ONE Stop: 08/03/18 18:16 Last Admin: 08/03/18 19:48 Dose: 5 mg Documented by: [id number] Metoprolol Succinate (Toprol Xl) 25 mg PO QAM [facility] Stop: 09/02/18 18:14 Last Admin: 08/04/18 10:02 Dose: Not Given Documented by: [id number] Admin: 08/03/18 19:48 Dose: 25 mg Documented by: [id number] Midazolam HCl (Versed) Confirm Administered Dose 2 mg .ROUTE .STK-MED ONE Stop: 08/03/18 15:45 Last Increment: 08/03/18 17:08 Dose: 1 mg Documented by: [id number] Increment: 08/03/18 16:48 Dose: 1 mg Documented by: [id number] Mycophenolate Mofetil (Cellcept) 1,000 mg PO BID [facility] Stop: 09/02/18 20:59 Last Admin: 08/04/18 07:39 Dose: 1,000 mg Documented by: [id number] Admin: 08/03/18 19:49 Dose: 1,000 mg Documented by: [id number] Nicardipine HCl (Cardene) Confirm Administered Dose 25 mg .ROUTE .STK-MED ONE Stop: 08/03/18 15:45 Last Admin: 08/03/18 16:18 Dose: 25 mg Documented by: [id number] Nitroglycerin/Dextrose (Nitroglycerin/D5w 100 Mcg/Ml 20ml Syringe) Confirm Administered Dose 2,000 mcg .ROUTE .STK-MED ONE Stop: 08/03/18 15:46 Last Admin: 08/03/18 16:18 Dose: 2,000 mcg Documented by: [id number] Vitamin D (Vitamin D3) 2,000 units PO DAILY [facility] Stop: 09/03/18 08:59 Last Admin: 08/04/18 07:38 Dose: 2,000 units Documented by: [id number] Medical Decision Making Differential Diagnosis Differential diagnosis: Etiologies such as cardiac ischemia, aortic dissection, pulmonary embolism, pneumonia, pneumothorax, musculoskeletal, infections, pericarditis, myocarditis, esophageal rupture, gastrointestinal, as well as others were entertained. Medical Records Attestation: I reviewed the patient's medical records. Home Medications Current Medication List: was personally reviewed by me Laboratory Data Attestation: I reviewed the patient's lab results. Result diagrams: 08/04/18 05:33 08/03/18 13:24 Lab Results 08/03/18 08/03/18 08/03/18 Range/Units 13:24 13:24 13:24 WBC 5.02 (4.8-10.8) K/uL RBC 3.70 L (4.2-5.4) M/uL Hgb 10.2 L (12.0-16.0) g/dL POC Hgb (12.0-16.0) g/dl Hct 32.1 L (37-47) % POC Hct (37-47) % MCV 86.8 (80-100) fL MCH 27.6 (25-34) pg MCHC 31.8 L (32-36) g/dL RDW Std Deviation 45.6 (36.4-46.3) fL RDW Coeff of Danya 14.4 (11.5-14.5) % Plt Count 363 (130-400) K/uL MPV 9.5 (7.4-10.4) fL Immature Gran % (Auto) 0.2 % Neut % (Auto) 58.1 % Lymph % (Auto) 27.5 % Owsley % (Auto) 11.2 % Eos % (Auto) 2.6 % Baso % (Auto) 0.4 % Immature Gran # (Auto) 0.01 (0.00-0.02) K/uL Neut # (Auto) 2.92 (1.4-6.5) K/uL Lymph # (Auto) 1.38 (1.2-3.4) K/uL Owsley # (Auto) 0.56 (0.11-0.59) K/uL Eos # (Auto) 0.13 (0-0.5) K/uL Baso # (Auto) 0.02 (0-0.2) K/uL PT Cancelled INR Cancelled APTT Cancelled PTT Ratio Cancelled Activ Coag Time Kaolin (94-140) SECONDS POC Sodium (135-144) mEq/L Sodium 138 (136-145) mmol/L POC Potassium (3.3-5.0) mEq/L Potassium 4.3 (3.5-5.1) mmol/L POC Chloride (101-112) mEq/L Chloride 110 H (98-107) mmol/L Carbon Dioxide 21 (21-32) mmol/L POC Total CO2 (24-31) mEq/l Anion Gap 7.0 (3-11) POC Anion Gap (16-25) mmol/L POC BUN (7-18) mg/dl BUN 17 (7-18) mg/dl Creatinine 0.60 (0.6-1.2) mg/dl POC Creatinine (0.6-1.3) mg/dl Est Cr Clr Drug Dosing 66.7 ml/min Est GFR ( Amer) 101.2 Est GFR (Non-Af Amer) 87.3 BUN/Creatinine Ratio 28.3 H (10-20) Glucose 87 (70-99) mg/dl POC Glucose (other) (70-99) mg/dl Estimat Average Glucose mg/dl Hemoglobin A1c (4.5-5.6) % Calcium 9.7 (8.5-10.1) mg/dl POC Ioniz Calcium Madhu (1.12-1.32) mmol/l Total Bilirubin 0.3 (0.2-1) mg/dl AST 20 (15-37) U/L ALT 18 (12-78) U/L Alkaline Phosphatase 143 H (45-117) U/L Total Creatine Kinase 97 (26-192) U/L CK-MB (CK-2) 6.5 H (0.5-3.6) ng/ml CK/CKMB % Calc 6.7 H (0-3.0) POC Troponin I (0-0.045) ng/ml Troponin I 1.050 H* (0-0.045) ng/ml Total Protein 7.2 (6.4-8.2) gm/dl Albumin 3.2 L (3.4-5.0) gm/dl Globulin 4.0 (2.5-4.0) gm/dl Albumin/Globulin Ratio 0.8 L (0.9-2) Triglycerides (0-150) mg/dl Cholesterol (0-200) mg/dl LDL Cholesterol, Calc mg/dl VLDL Cholesterol, Calc mg/dl HDL Cholesterol mg/dl Cholesterol/HDL Ratio Lipase 182 (73-393) U/L TSH (0.300-4.500) uIu/ml 08/03/18 08/03/18 08/03/18 Range/Units 13:39 13:46 15:39 WBC (4.8-10.8) K/uL RBC (4.2-5.4) M/uL Hgb (12.0-16.0) g/dL POC Hgb 9.9 L (12.0-16.0) g/dl Hct (37-47) % POC Hct 29 L (37-47) % MCV (80-100) fL MCH (25-34) pg MCHC (32-36) g/dL RDW Std Deviation (36.4-46.3) fL RDW Coeff of Danya (11.5-14.5) % Plt Count (130-400) K/uL MPV (7.4-10.4) fL Immature Gran % (Auto) % Neut % (Auto) % Lymph % (Auto) % Owsley % (Auto) % Eos % (Auto) % Baso % (Auto) % Immature Gran # (Auto) (0.00-0.02) K/uL Neut # (Auto) (1.4-6.5) K/uL Lymph # (Auto) (1.2-3.4) K/uL Owsley # (Auto) (0.11-0.59) K/uL Eos # (Auto) (0-0.5) K/uL Baso # (Auto) (0-0.2) K/uL PT INR APTT PTT Ratio Activ Coag Time Kaolin 263 H (94-140) SECONDS POC Sodium 139 (135-144) mEq/L Sodium (136-145) mmol/L POC Potassium 4.2 (3.3-5.0) mEq/L Potassium (3.5-5.1) mmol/L POC Chloride 108 (101-112) mEq/L Chloride (98-107) mmol/L Carbon Dioxide (21-32) mmol/L POC Total CO2 21 L (24-31) mEq/l Anion Gap (3-11) POC Anion Gap 16.0 (16-25) mmol/L POC BUN 17 (7-18) mg/dl BUN (7-18) mg/dl Creatinine (0.6-1.2) mg/dl POC Creatinine 0.5 L (0.6-1.3) mg/dl Est Cr Clr Drug Dosing ml/min Est GFR ( Amer) Est GFR (Non-Af Amer) BUN/Creatinine Ratio (10-20) Glucose (70-99) mg/dl POC Glucose (other) 92 (70-99) mg/dl Estimat Average Glucose mg/dl Hemoglobin A1c (4.5-5.6) % Calcium (8.5-10.1) mg/dl POC Ioniz Calcium Madhu 1.22 (1.12-1.32) mmol/l Total Bilirubin (0.2-1) mg/dl AST (15-37) U/L ALT (12-78) U/L Alkaline Phosphatase (45-117) U/L Total Creatine Kinase (26-192) U/L CK-MB (CK-2) (0.5-3.6) ng/ml CK/CKMB % Calc (0-3.0) POC Troponin I 1.03 H (0-0.045) ng/ml Troponin I (0-0.045) ng/ml Total Protein (6.4-8.2) gm/dl Albumin (3.4-5.0) gm/dl Globulin (2.5-4.0) gm/dl Albumin/Globulin Ratio (0.9-2) Triglycerides (0-150) mg/dl Cholesterol (0-200) mg/dl LDL Cholesterol, Calc mg/dl VLDL Cholesterol, Calc mg/dl HDL Cholesterol mg/dl Cholesterol/HDL Ratio Lipase (73-393) U/L TSH (0.300-4.500) uIu/ml 08/03/18 08/03/18 08/03/18 Range/Units 18:27 23:12 23:12 WBC (4.8-10.8) K/uL RBC (4.2-5.4) M/uL Hgb (12.0-16.0) g/dL POC Hgb (12.0-16.0) g/dl Hct (37-47) % POC Hct (37-47) % MCV (80-100) fL MCH (25-34) pg MCHC (32-36) g/dL RDW Std Deviation (36.4-46.3) fL RDW Coeff of Danya (11.5-14.5) % Plt Count (130-400) K/uL MPV (7.4-10.4) fL Immature Gran % (Auto) % Neut % (Auto) % Lymph % (Auto) % Owsley % (Auto) % Eos % (Auto) % Baso % (Auto) % Immature Gran # (Auto) (0.00-0.02) K/uL Neut # (Auto) (1.4-6.5) K/uL Lymph # (Auto) (1.2-3.4) K/uL Owsley # (Auto) (0.11-0.59) K/uL Eos # (Auto) (0-0.5) K/uL Baso # (Auto) (0-0.2) K/uL PT Cancelled 10.5 INR Cancelled 1.0 APTT Cancelled 28.0 PTT Ratio Cancelled 1.0 Activ Coag Time Kaolin (94-140) SECONDS POC Sodium (135-144) mEq/L Sodium (136-145) mmol/L POC Potassium (3.3-5.0) mEq/L Potassium (3.5-5.1) mmol/L POC Chloride (101-112) mEq/L Chloride (98-107) mmol/L Carbon Dioxide (21-32) mmol/L POC Total CO2 (24-31) mEq/l Anion Gap (3-11) POC Anion Gap (16-25) mmol/L POC BUN (7-18) mg/dl BUN (7-18) mg/dl Creatinine (0.6-1.2) mg/dl POC Creatinine (0.6-1.3) mg/dl Est Cr Clr Drug Dosing ml/min Est GFR ( Amer) Est GFR (Non-Af Amer) BUN/Creatinine Ratio (10-20) Glucose (70-99) mg/dl POC Glucose (other) (70-99) mg/dl Estimat Average Glucose mg/dl Hemoglobin A1c (4.5-5.6) % Calcium (8.5-10.1) mg/dl POC Ioniz Calcium Madhu (1.12-1.32) mmol/l Total Bilirubin (0.2-1) mg/dl AST (15-37) U/L ALT (12-78) U/L Alkaline Phosphatase (45-117) U/L Total Creatine Kinase (26-192) U/L CK-MB (CK-2) (0.5-3.6) ng/ml CK/CKMB % Calc (0-3.0) POC Troponin I (0-0.045) ng/ml Troponin I 2.080 H* (0-0.045) ng/ml Total Protein (6.4-8.2) gm/dl Albumin (3.4-5.0) gm/dl Globulin (2.5-4.0) gm/dl Albumin/Globulin Ratio (0.9-2) Triglycerides (0-150) mg/dl Cholesterol (0-200) mg/dl LDL Cholesterol, Calc mg/dl VLDL Cholesterol, Calc mg/dl HDL Cholesterol mg/dl Cholesterol/HDL Ratio Lipase (73-393) U/L TSH (0.300-4.500) uIu/ml 08/04/18 08/04/18 08/04/18 Range/Units 05:33 05:33 05:33 WBC 5.48 (4.8-10.8) K/uL RBC 3.62 L (4.2-5.4) M/uL Hgb 10.2 L (12.0-16.0) g/dL POC Hgb (12.0-16.0) g/dl Hct 32.1 L (37-47) % POC Hct (37-47) % MCV 88.7 (80-100) fL MCH 28.2 (25-34) pg MCHC 31.8 L (32-36) g/dL RDW Std Deviation 46.6 H (36.4-46.3) fL RDW Coeff of Danya 14.3 (11.5-14.5) % Plt Count 357 (130-400) K/uL MPV 9.4 (7.4-10.4) fL Immature Gran % (Auto) 0.2 % Neut % (Auto) 65.0 % Lymph % (Auto) 18.1 % Owsley % (Auto) 13.5 % Eos % (Auto) 2.7 % Baso % (Auto) 0.5 % Immature Gran # (Auto) 0.01 (0.00-0.02) K/uL Neut # (Auto) 3.56 (1.4-6.5) K/uL Lymph # (Auto) 0.99 L (1.2-3.4) K/uL Owsley # (Auto) 0.74 H (0.11-0.59) K/uL Eos # (Auto) 0.15 (0-0.5) K/uL Baso # (Auto) 0.03 (0-0.2) K/uL PT INR APTT PTT Ratio Activ Coag Time Kaolin (94-140) SECONDS POC Sodium (135-144) mEq/L Sodium (136-145) mmol/L POC Potassium (3.3-5.0) mEq/L Potassium (3.5-5.1) mmol/L POC Chloride (101-112) mEq/L Chloride (98-107) mmol/L Carbon Dioxide (21-32) mmol/L POC Total CO2 (24-31) mEq/l Anion Gap (3-11) POC Anion Gap (16-25) mmol/L POC BUN (7-18) mg/dl BUN (7-18) mg/dl Creatinine (0.6-1.2) mg/dl POC Creatinine (0.6-1.3) mg/dl Est Cr Clr Drug Dosing ml/min Est GFR ( Amer) Est GFR (Non-Af Amer) BUN/Creatinine Ratio (10-20) Glucose (70-99) mg/dl POC Glucose (other) (70-99) mg/dl Estimat Average Glucose 108 mg/dl Hemoglobin A1c 5.4 (4.5-5.6) % Calcium (8.5-10.1) mg/dl POC Ioniz Calcium Madhu (1.12-1.32) mmol/l Total Bilirubin (0.2-1) mg/dl AST (15-37) U/L ALT (12-78) U/L Alkaline Phosphatase (45-117) U/L Total Creatine Kinase (26-192) U/L CK-MB (CK-2) (0.5-3.6) ng/ml CK/CKMB % Calc (0-3.0) POC Troponin I (0-0.045) ng/ml Troponin I 2.160 H* (0-0.045) ng/ml Total Protein (6.4-8.2) gm/dl Albumin (3.4-5.0) gm/dl Globulin (2.5-4.0) gm/dl Albumin/Globulin Ratio (0.9-2) Triglycerides 199 H (0-150) mg/dl Cholesterol 130 (0-200) mg/dl LDL Cholesterol, Calc 57 mg/dl VLDL Cholesterol, Calc 40 mg/dl HDL Cholesterol 33 mg/dl Cholesterol/HDL Ratio 4 Lipase (73-393) U/L TSH 0.166 L (0.300-4.500) uIu/ml Imaging Data Radiologist's Impression: XR chest 1V portable HISTORY: 77 years-old Female Chest Pain acute atypical chest pain COMPARISON: None available TECHNIQUE: Portable AP view of the chest FINDINGS: Cardiac silhouette is mildly enlarged. Mild right hemidiaphragmatic elevation. There is no pneumothorax, pleural effusion or overt pulmonary edema. Mild subsegmental left basilar atelectasis. There are possible pleural calcifications about the right hemithorax Degenerative changes of the shoulders and spine. IMPRESSION: No acute process. The above report was generated using voice recognition software. It may contain grammatical, syntax or spelling errors. Electronically signed by: Dallas Shine M.D. 08/03/2018 1:24 PM ECG Data Attestation: I personally reviewed and interpreted this ECG as follows: Indication: other (cardiac assessment) Rate (beats per minute): 89 Rhythm: sinus rhythm Findings: + ST depression (Lateral) and + ST elevation (Inferior) Blood Pressure Blood Pressure Findings: Normal blood pressure MDM Narrative This is a 77-year-old female who presents emergency department with no complaints however the patient's EKG is concerning for changes. For this reason I did discuss the case with the on-call casing material weigher who ordered a stat echo. Patient was found to have an elevation in her troponin. She has received aspirin along with a fluid bolus here in the emergency department. She was discussed with both the hospitalist and taken to the Photonics Engineering Technician. Impression & Plan Non-ST elevation (NSTEMI) myocardial infarction Discharge Plan Visit Data *Final* Discharge Date/Time: 08/03/18 16:05 Chief Complaint: Cardiac Assessment Stated Complaint: chest pain ED Provider: Sidney Alfaro Discharge Problem: Non-ST elevation (NSTEMI) myocardial infarction Patient Disposition: Admitted As Inpatient Discharge Instructions Interventions: ED Discharge Assessment Last Done: 08/03/18 16:05 The scribe's documentation has been prepared under my direction and personally reviewed by me in its entirety. I confirm that the note above accurately reflects all work, treatment, procedures, and medical decision making performed by me.
--- OUTSIDE RECORDS SUMMARY | 2018-08-09 16:43 | External Medical Summary | Continuity of Care Document ---
:1940 Author Name Stepan Fajardo, Provider Address Unavailable Unavailable , Care Team Providers Name Role Phone Shaniqua Dial PA-C Unavailable [email or web address] JAYESH JACKSON Unavailable Unavailable Problems Active medical history not documented Allergies and Adverse Reactions Allergy history not documented Medications Medications not documented Procedures Procedures not documented Immunizations Immunizations not documented Plan of Treatment Planned Encounters Appointment; Shaniqua Dial PA-C Start: 19-Aug-2018 11:30 Req uest Planned Observations Planned Goals not documented Results No Known Results Results not documented Encounters Appointment; Shaniqua Dial PA-C 19-Aug-2018 11:30 Encounter Diagnosis: Problem not documented
--- OUTSIDE RECORDS SUMMARY | 2018-08-09 17:38 | External Medical Summary | Continuity of Care Document ---
:1940 Author Name Stepan Fajardo, Provider Address Unavailable Unavailable , Care Team Providers Name Role Phone Shaniqua Dial PA-C Unavailable [email or web address] JAYESH JACKSON Unavailable Unavailable Problems Active [...]
== END 2018-08-04 14:59 | disposition home health service (06) | DRG 247 ==
LOC: ED 13:09 → CC 16:00 → 2S 16:05

== ENCOUNTER 2018-10-11 15:28 | Inpatient (IN) ==
[2018-10-11] MEDS ORDERED: KETOROLAC TROMETHAMINE 15 MG/ML VIAL IV STA (16:32)
[2018-10-11] MEDS ORDERED: ONDANSETRON INJ 2 MG/ML 2 ML VIAL IV STA (16:32)
[2018-10-11] MEDS ORDERED: SODIUM CHLORIDE 0.9% 1000ML 1,000 ML IV SCH ×2 (16:45→22:38)
--- NOTE | 2018-10-11 16:52 | XRay Report ---
XR chest 1V portable CLINICAL HISTORY: weakness COMPARISON STUDY: 08/03/2018 FINDINGS: The cardiac and mediastinal contours are normal. There is no evidence of focal pulmonary co nsolidation. There is no evidence of failure. No pleural effusions are visualized.[ IMPRESSION: No active disease in the chest. Electronically signed by: Ignacio Jansen M.D. 10/11/2018 4:50 PM
[2018-10-11 17:46] LABS: Basophils # (auto) 0.02 K/uL (0-0.2); Basophils % (auto) 0.3 %; Eosinophils # (auto) 0.01 K/uL (0-0.5); Eosinophils % (auto) 0.1 %; Hematocrit (blood only) 34.3 % (37-47); Hemoglobin 11.3 g/dL (12.0-16.0); Lymphocytes % (auto) 6.3 %; Mean Corpuscular Hgb Conc 32.9 g/dL (32-36); Mean Corpuscular Volume 86.2 fL (80-100); Mean Platelet Volume 9.6 fL (7.4-10.4); Monocytes # (auto) 0.63 K/uL (0.11-0.59); Neutrophils # (auto) 6.73 K/uL (1.4-6.5); Neutrophils % (auto) 85.3 %; Platelet Count 291 K/uL (130-400); RDW Coefficient of Variation 14.6 % (11.5-14.5); Red Blood Count 3.98 M/uL (4.2-5.4); White Blood Count 7.89 K/uL (4.8-10.8)
[2018-10-11 18:10] LABS: Albumin Level 3.6 gm/dl (3.4-5.0); BUN Creatinine Ratio 23.1 (10-20); Calcium 9.1 mg/dl (8.5-10.1); Creatinine Clr Calc Pharmacy 73.2 ml/min; Est GFR (African American) 104.8; Est GFR (Non-African American) 90.4; Magnesium 1.8 mg/dl (1.8-2.4); Potassium 3.2 mmol/L (3.5-5.1)
[2018-10-11 18:21] LABS: Albumin Globulin Ratio 0.9 (0.9-2); Bilirubin,Total 0.8 mg/dl (0.2-1); Total Protein 7.6 gm/dl (6.4-8.2); Troponin I 1.54 ng/ml (0-0.045)
[2018-10-11] MEDS ORDERED: POTASSIUM CHLORIDE / WTR 10 MEQ/100 ML PLCT IV ONE (18:28)
[2018-10-11 18:41] LABS: Appearance Urine Cloudy (Clear); Bacteria Urine Automated 4+ (Negative); Bilirubin Urine Negative (Negative); Blood Urine 1+ (Negative); Color Urine Yellow; Epithelial Cell Urine Auto 0-5 /lpf (0-5); Glucose Urine UA Negative (Negative); Ketones Urine 2+ (Negative); Leukocyte Esterase Urine Trace (Negative); Nitrite Urine Positive (Negative); Protein Urine 1+ (Negative); RBC Urine Automated 0-4 /hpf (0-4); Specific Gravity Urine 1.024 (1.000-1.030); Urobilinogen Urine Negative (Negative); WBC Urine Automated >30 /hpf (0-5)
[2018-10-11] MEDS ORDERED: cefTRIAXone SODIUM 1,000 MG/50 ML BAG IV STA (18:45)
[2018-10-11 18:47] LABS: Lyme Ab IgG w/WB Rflx Negative (Negative); Lyme Ab IgM w/WB Rflx Negative (Negative)
[2018-10-11] MEDS ORDERED: POTASSIUM CHLORIDE 10 MEQ TABCR PO STA (22:38)
[2018-10-11] MEDS ORDERED: NITROGLYCERIN SL 0.4 MG/TAB TAB SL PRN (22:38)
[2018-10-11] MEDS ORDERED: ONDANSETRON INJ 2 MG/ML 2 ML VIAL IV PRN (22:38)
[2018-10-11] MEDS ORDERED: ACETAMINOPHEN 325 MG TAB PO PRN (22:38)
[2018-10-11] MEDS: GABAPENTIN 600 MG TAB PO SCH (23:51)
[2018-10-11] MEDS: CHOLECALCIFEROL 1,000 UNITS TAB PO SCH (23:51)
[2018-10-11] MEDS: ATORVASTATIN 40 MG TAB PO SCH (23:52)
[2018-10-11] MEDS: DULOXETINE HCL 30 MG CAP PO SCH (23:52)
[2018-10-11] MEDS: MYCOPHENOLATE MOFETIL 250 MG CAP PO SCH (23:55)
--- NOTE | 2018-10-12 00:36 | History and Physical Report ---
DATE OF ADMISSION: 10/11/2018 CHIEF COMPLAINT: Weakness and diarrhea. HISTORY OF PRESENT ILLNESS: A 77-year-old female with past medical history significant for hypothyroidism, gout, CAD, inclusion body myositis, neuropathy recently admitted on 08/03/2018 as outpatient routine workup showed ST elevated myocardial infarction and the patient was asymptomatic at that time and she was status post cardiac catheterization and 2 drug-eluting stents placed to mid RCA and distal circumflex.In last week of July she was treated for UTI with Augmentin for Klebsiella. Patient lives alone. Daughter lives close by. Since she was diagnosed with inclusion body myositis, she has poor ambulatory status. She has a lift chair at home, can ambulate to the bathroom. She lives alone. Since last 1-2 days she is having diarrhea, several episodes. The patient denies any abdominal pain but complains of gurgling in the bowels and nausea, feeling generalized weakness. Denies any cough, feeling hot and cold. No chest pain, no shortness of breath, no cough, no headache, no runny nose. Complains of sore throat. She always has some difficulty swallowing since she was diagnosed with inclusion body myositis. No rash. She has some bruises in the legs. She says she scrapping legs while she is ambulating. She has some mild edema in the lower extremities. Denies blood in the stools. Denies any burning micturition or hematuria. Currently resting comfortable and hemodynamically stable. ALLERGIES: No known drug allergies. PAST MEDICAL HISTORY: As mentioned above. PAST SURGICAL HISTORY: Biopsy of the muscles, removal of oviducts, total hysterectomy, recent cardiac catheterization and stent placements. MEDICATIONS: Currently, the patient is on aspirin 81 mg p.o. daily, Plavix 75 mg p.o. daily, atorvastatin 40 mg p.o. daily, Tylenol 500 mg p.o. q. 6 hours p.r.n., Toprol-XL 25 mg p.o. daily, Citrucel daily, allopurinol 100 mg p.o. daily, Cymbalta 60 mg p.o. at bedtime, gabapentin 600 mg p.o. t.i.d., CellCept 1000 mg p.o. b.i.d., vitamin D 2000 units p.o. daily, vitamin B12 1000 mcg injection monthly, levothyroxine 88 mcg daily. FAMILY HISTORY: Significant for mother of ND at age of 88. Father had emphysema. SOCIAL HISTORY: , lives alone. No smoking. No alcohol use. No drug use. REVIEW OF SYMPTOMS: As per HPI. Rest of review of systems negative. PHYSICAL EXAMINATION: GENERAL: The patient is weak and frail, not in acute distress. VITAL SIGNS: Temperature 36.7, pulse 83, respiratory rate 22, blood pressure 117/62, oxygen 98% room air. HEENT: No pallor, no icterus. Pupils equal, round, and reactive to light. NECK: No JVD, no neck masses, no carotid bruit. CARDIOVASCULAR: S1, S2 heard, regular rate and rhythm, no murmur, no gallop. RESPIRATORY SYSTEM: Normal AP diameter. No accessory muscle use. No wheezing, no crackles. ABDOMEN: Soft, bowel sounds present. Nontender. No distention. CENTRAL NERVOUS SYSTEM: Nonfocal. EXTREMITIES: Mild pedal edema, no erythema seen. LABORATORIES: WBC 7.8, hemoglobin 11.3, hematocrit 34.3, platelets 291. Sodium 135, potassium 3.2, chloride 105, bicarb 19, BUN 13, creatinine 0.5, serum glucose 115. Lactate 2.1, calcium 9.1, magnesium 1.8, total bilirubin 0.8, AST 24, ALT 20, alkaline phosphatase is 122, total creatine kinase 112. Troponin 1.5. UA positive for nitrite and leukocyte esterase. Stool for C. diff negative. Lyme screen negative. Chest x-ray, no active disease in the chest. EKG: Sinus rhythm with PACs at a rate of 77. No significant change. Q-waves in inferior leads, no acute change from previous EKG. ASSESSMENT AND PLAN: This is a 77-year-old female who presents with generalized weakness and diarrhea and nausea. 1. Generalized weakness and diarrhea, sore throat, found to have a urinary tract infection. Clostridium difficile was negative in the ER.Had Augmentin in last week of July for Klebsiella UTI. We will place on IV Rocephin. Follow the cultures. IV fluids. Monitor on the tele floor. 2. Lactic acid of 2.1. We will repeat lactic acid. 3. Troponin elevation patient is asymptomatic, and EKG shows no new changes. We will repeat the troponins, if it is climbing up and or patinet becomes symptomatic we will start her on IV heparin and notify Cardiology, otherwise consult Cardiology in a.m. and follow the echocardiogram. 4. History of myocardial infarction, status post drug-eluting stents to right coronary artery and circumflex. Continue aspirin, Plavix, statin and metoprolol. 5. 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. Continue Synthroid. 6. Gout. Continue allopurinol 7. 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 On CellCept. Pt/ot when stable. monthly. 8 Lower extremity edema mild. More on right leg. Follow echo.Follow venous Doppler. 9. Deep venous thrombosis prophylaxis, heparin subcutaneously. 10. Disposition: Admit to tele floor. Expected discharge home and follow with family doctor. Level 1, full code as per my discussion with patient's family for short period of time. Addendum troponin trended upto 1.9. Will start on iv heparin. MTDD
[2018-10-12 05:44] LABS: Basophils # (auto) 0.01 K/uL (0-0.2); Basophils % (auto) 0.2 %; Eosinophils # (auto) 0.01 K/uL (0-0.5); Eosinophils % (auto) 0.2 %; Hematocrit (blood only) 32.2 % (37-47); Hemoglobin 10.5 g/dL (12.0-16.0); Immature Granulocytes # (auto) 0.01 K/uL (0.00-0.02); Immature Granulocytes % (auto) 0.2 %; Lymphocytes # (auto) 0.56 K/uL (1.2-3.4); Lymphocytes % (auto) 9.2 %; Mean Corpuscular Hgb Conc 32.6 g/dL (32-36); Mean Corpuscular Volume 86.8 fL (80-100); Mean Platelet Volume 9.4 fL (7.4-10.4); Monocytes # (auto) 0.63 K/uL (0.11-0.59); Monocytes % (auto) 10.3 %; Neutrophils # (auto) 4.88 K/uL (1.4-6.5); Neutrophils % (auto) 79.9 %; Platelet Count 238 K/uL (130-400); RDW Coefficient of Variation 14.8 % (11.5-14.5); RDW Standard Deviation 46.8 fL (36.4-46.3); Red Blood Count 3.71 M/uL (4.2-5.4)
[2018-10-12 05:55] LABS: Prothrombin Time 10.3 Seconds (9.0-12.0)
[2018-10-12] MEDS ORDERED: Heparin IV Low Dose *NO* Bolus IV SCH (06:00)
[2018-10-12 06:18] LABS: BUN Creatinine Ratio 24.6 (10-20); Calcium 8.7 mg/dl (8.5-10.1); Creatinine Clr Calc Pharmacy 77.7 ml/min; Est GFR (African American) 108.2; Est GFR (Non-African American) 93.3; Magnesium 1.6 mg/dl (1.8-2.4); Potassium 4.1 mmol/L (3.5-5.1)
[2018-10-12 06:34] LABS: Partial Thromboplastin Time 27.2 Seconds (21.0-31.0)
[2018-10-12] MEDS: Heparin Adult LOW DOSE Wt-Based Dextrose 5% 25,000 units/500 mL IV SCH (06:40)
[2018-10-12] MEDS ORDERED: FUROSEMIDE 80 MG in SYRINGE 0 ML IV STA (07:16)
[2018-10-12] MEDS ORDERED: FUROSEMIDE 80 MG in SYRINGE 0 ML IV ONE ×2 (07:20→10:46)
[2018-10-12] MEDS ORDERED: MAGNESIUM SULFATE / D5W 1 GM/100 ML BAG IV STA (07:22)
[2018-10-12] MEDS ORDERED: FUROSEMIDE 10 MG/ML 10 ML VIAL IV ONE (07:33)
[2018-10-12] MEDS ORDERED: NITROGLYCERIN 2% OINTMENT 30GM TUBE ONE (07:36)
[2018-10-12] MEDS ORDERED: NITROGLYCERIN 2% OINTMENT 30GM TUBE EXT STA (07:38)
[2018-10-12] MEDS ORDERED: ADENOSINE IV SOLN 3 MG/ML 2 ML VIAL IV ONE (08:04)
--- NOTE | 2018-10-12 08:05 | XRay Report ---
XR chest 1V portable HISTORY: 77 years-old Female sob, tachycardia acute shortness of breath COMPARISON: Chest radiograph 10/11/2017 TECHNIQUE: Portable AP view of the chest FINDINGS: Pretty mediastinal and hilar silhouettes are within normal limits. There is no pneumothorax or large pleural effusion. Interval development of right greater than left interstitial opacities with right p erihilar alveolar densities. Degenerative changes of the shoulders and spine. IMPRESSION: Interval development of right greater than left interstitial opacities and right perihilar alveolar d ensities suggestive of asymmetric pulmonary edema versus pneumonitis. Correlate clinically. The above report was generated using voice recognition software. It may contain grammatical, syntax o r spelling errors. Electronically signed by: Dallas Shine M.D. 10/12/2018 8:03 AM
[2018-10-12 08:09] LABS: Base Excess ABG -15.8 mEq/L (-9-1.8); HCO3 ABG 11 mmol/L (19-24); Oxygen Saturation ABG 86.3 % (90-95); PCO2 ABG 30 mmHg (35-46); PO2 ABG 60 mm/Hg (80-95)
[2018-10-12 08:14] LABS: Allen Test Pos (Pos)
[2018-10-12] MEDS ORDERED: METOPROLOL TARTRATE 1 MG/ML VIAL IV ONE (08:14)
[2018-10-12 08:15] LABS: pH ABG 7.19 (7.35-7.45)
[2018-10-12] MEDS ORDERED: MoRPHine SULFATE 2 MG/ML CARP ONE (08:19)
[2018-10-12] MEDS ORDERED: METOPROLOL TARTRATE 1 MG/ML VIAL IV STA (08:32)
[2018-10-12] MEDS ORDERED: MoRPHine SULFATE 2 MG/ML CARP IV STA (08:32)
[2018-10-12] MEDS ORDERED: ADENOSINE IV SOLN 3 MG/ML 2 ML VIAL IV STA ×2 (08:32)
--- NOTE | 2018-10-12 08:41 | Hospitalist Progress Note ---
Date of Service October 12, 2018 Assessment & Plan (1) ACS (acute coronary syndrome): (2) Acute respiratory failure with hypoxemia: (3) Pulmonary edema cardiac cause: (4) UTI (urinary tract infection): (5) Weakness: (6) Diarrhea: (7) HLD (hyperlipidemia): (8) 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: (9) Gout: (10) Inclusion body myositis: I saw the patient earlier this morning, she appeared fine and was in no respiratory distress. I got a call from the nurse about 1/2-hour later that she was in respiratory distress with respirations in the 40s, tachycardic in the 150s to 170s and hypoxic. I ordered an ABG and the pH came back at 7.19. I also ordered a chest x-ray, CTA of the chest, and a new set of troponins. I went down and talked to the appeals analyst team and told them what was going on and that I was trying to keep her out of the ICU and would let him know how we were doing. We had a lot of trouble getting a pulse ox on her, her heart rate continued to go up, her troponins were rising and she remained in respiratory distress. Placed her on BiPAP in 100% O2. The ICU team came up gave her 6 of adenosine and then 12 of adenosine and we got an EKG which showed sinus tach and we moved her down to the ICU. Chest x-ray was ordered which looks like pulmonary edema, troponins are on the rise, and I made Dr. Hank Black her marine gear keeper aware of what was going on. She is currently in the ICU for further care. We will continue to monitor her progress in the ICU, she will continue Rocephin, and I DCd the IV fluids and gave her 80 of IV Lasix and placed a Beckett. Continued with serial troponins and will monitor daily labs. I discussed the case with cardiology who may take a look tomorrow in the Tissue Recovery Technician after she settles down. Total critical care time spent 2 hours Labs are checked ROS-No Headache, No Visual Changes, No Nausea, No Vomiting, No Fever, No Chills, No Neck Pain or Stiffness, No Chest Pain, No Palpitations, positive SOB, No DUGAN, No Cough, No Sputum, positive wheezing, No Abdominal Pain, positive diarrhea, No Hematemesis, No Hemoptysis, No Unexpected Weight Loss, No Flank pain, No Melena, No Hematochezia, No Frequency, No Urgency, No Burning, No Hematuria, No Rashes, No Diaphoresis. Appetite is Normal Physical Exam Gen-AAO x 3, severe respiratory distress, Afebrile, anxious Head-NCAT, EOMI, PERRLA, Anicteric Sclera, No Posterior Pharyngeal Erythema Neck-Supple, No JVD, No Thyromegaly, No Masses, No LAD, No Bruits Lungs-coarse breath sounds bilaterally, No Rales, No Rhonchi, No Wheezing, No Crepitus Chest-No S4, +S1, +S2, No S3, No Murmurs, No Rubs, No Gallops, No Ectopy Abdomen-Soft, Bowel Sounds Present, Non Tender, Non Distended, No Hepatomegaly, No Splenomegaly, No Palpable Masses, No Rebound, No Rigidity, No Guarding Musculoskeletal-Full Range of Motion Bilaterally, No CVAT, mottling of the lower extremities Extremities-No Cyanosis, No Clubbing, No Edema Nuero-Cranial Nerves II-XII grossly intact, Motor WNL, DTRs WNL, Strength WNL, Non Focal Psych-anxious Results & Data Vital Signs (Past 12 Hours) Vital Signs Temp Pulse Pulse Resp BP BP Pulse Ox 10/12/18 08:16 131 H 142/109 H 10/12/18 07:02 37.1 C 140 H 30 H 155/109 H 90 10/12/18 03:21 37.5 C 73 18 133/73 98 10/12/18 00:00 77 10/11/18 22:39 36.9 C 81 16 147/95 H 95 10/11/18 22:01 77 25 H 133/52 L 97 10/11/18 21:30 69 24 131/60 10/11/18 21:01 70 18 104/53 L 98 Allergies No Known Allergies Allergy (Verified 10/11/18 17:23) Height/Weight/Isolation Height 5 ft 5 in Weight 52 kg Chemistry 10/11/18 10/12/18 17:25 05:20 Sodium 135 L 139 Potassium 3.2 L 4.1 D Chloride 105 110 H Carbon Dioxide 19 L 19 L Anion Gap 11.0 10.0 BUN 13 12 Creatinine 0.54 L 0.49 L Glucose 115 H 103 H Urinalysis 10/11/18 18:20 Urine Color Yellow Urine Appearance Cloudy A Urine pH 5.0 Ur Specific [place] 1.024 Urine Protein 1+ H Urine Glucose (UA) Negative Urine Ketones 2+ H Urine Blood 1+ H Urine Nitrite Positive A Urine Bilirubin Negative Microbiology 10/11/18 18:20 Urine,Straight Cath Urine Culture - Preliminary Escherichia coli 10/11/18 19:25 Stool Shiga Toxin Test - Pending 10/11/18 19:25 Stool Stool Culture - Pending 10/11/18 17:25 Blood Aerobic Blood Culture - Pending 10/11/18 17:25 Blood Anaerobic Blood Culture - Pending 10/11/18 17:11 Blood Aerobic Blood Culture - Pending 10/11/18 17:11 Blood Anaerobic Blood Culture - Pending (1) UTI (urinary tract infection) Hematuria presence: without hematuria Urinary tract infection type: site unspecified Qualified Code(s): N39.0 - Urinary tract infection, site not specified (2) Diarrhea Diarrhea type: unspecified type Qualified Code(s): R19.7 - Diarrhea, unspecified
[2018-10-12] MEDS: MAGNESIUM SULFATE / D5W 1 GM/100 ML BAG IV SCH ×2 (08:46→09:44)
[2018-10-12] MEDS ORDERED: HEPARIN SOD 5,000 UNIT/0.5 ML VIAL SQ SCH (09:00)
[2018-10-12] MEDS: cefTRIAXone SODIUM 1,000 MG in DEXTROSE 5% 50 ML IV SCH (09:10)
[2018-10-12] MEDS: LEVOTHYROXINE SODIUM 88 MCG TABLET PO SCH (09:44)
[2018-10-12 10:00] LABS: Hematocrit (blood only) 37.9 % (37-47); Hemoglobin 12.4 g/dL (12.0-16.0); Mean Corpuscular Hgb Conc 32.7 g/dL (32-36); Mean Corpuscular Volume 86.9 fL (80-100); Mean Platelet Volume 9.8 fL (7.4-10.4); Platelet Count 357 K/uL (130-400); RDW Coefficient of Variation 14.8 % (11.5-14.5); RDW Standard Deviation 46.9 fL (36.4-46.3); Red Blood Count 4.36 M/uL (4.2-5.4); White Blood Count 13.78 K/uL (4.8-10.8)
--- NOTE | 2018-10-12 10:07 | Critical Care Consultation ---
Date of Consultation October 12, 2018 Assessment & Plan (1) Acute respiratory failure with hypoxemia: Neuro- awake but lethargic likely due to metabolic encephalopathy CV- superventricular tachycardia. responded well to metoprolol. NSTEMI. continue aspirin, clopidogrel, atorvastatin. metoprolol(if BP tolerates). heparin drip. echo with worsening LV function. optimize volume status Pulmonary- acute hypoxic respiratory failure due to pulmonary edema. continue bipap support. continue diuresis ID- sepsis with evidence of end organ dysfunction due to UTI. continue ceftriaxone. follow cultures Renal- cr ok. abg with metabolic acidosis. non anion gap. repeat labs GI- NPO for now Heme- leukocytosis. heparin drip for NSTEMI and for DVT proph Endocrine- keep blood sugars <180. 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 This is a life/limb threatening event. This includes time spent evaluating patient, direct bedside care, chart review, placing orders, interpretation of diagnostic studies, discussion with consultants, patient, and/or family members regarding treatment decisions, as well as other required patient management activities. This time is exclusive of all separately billable procedures, and teaching time and separate from and in addition to any other critical care service time. (2) Pulmonary edema cardiac cause: (3) Acute myocardial infarction: (4) ACS (acute coronary syndrome): History of Present Illness Attending Physician: Mamadou Babcock DO History of Present Illness 77 y/o female with a history of CAD with recent stent placement, hypothyroidism, inclusion body myositis who presented yesterday with weakness, diarrhea and nausea. she was found to have UTI and troponins elevated. This morning acute onset of worsening shortness of breath and tachycardia up to 170s. repeat CXR with pulmonary edema. she was given lasix 80, adenosine 6 then 12 mg with brief lowering of HR. then metoprolol 5 mg lowered her HR to 90s. she remains on bipap. she says her breathing feels like it is improving. She has not had an adequate response to the furosemide. Allergies Allergy/AdvReac Type Severity Reaction Status Date / Time No Known Allergies Allergy Verified 10/11/18 17:23 Home Medications Home Medications Medication Instructions Recorded Confirmed Type Citrucel (sucrose) 1 tbsp PO QAM 08/03/18 10/11/18 History Ivig 1 dose IV MONTHLY 08/03/18 10/11/18 History allopurinol 100 mg PO QAM 08/03/18 10/11/18 History cholecalciferol (vitamin D3) 2,000 unit PO BID 08/03/18 10/11/18 History [Vitamin D3] cyanocobalamin (vitamin B-12) 1,000 mcg IM MONTHLY 08/03/18 10/11/18 History duloxetine [Cymbalta] 60 mg PO HS 08/03/18 10/11/18 History gabapentin [Neurontin] 600 mg PO TID 08/03/18 10/11/18 History levothyroxine 88 mcg PO QAM 08/03/18 10/11/18 History mycophenolate mofetil [CellCept] 1,000 mg PO BID 08/03/18 10/11/18 History Toprol XL 25 mg PO DAILY 10/11/18 10/11/18 History acetaminophen [Tylenol Extra 500 mg PO TID 10/11/18 10/11/18 History Strength] aspirin [Ecotrin Low Strength] 81 mg PO QAM 10/11/18 10/11/18 History atorvastatin 40 mg PO HS 10/11/18 10/11/18 History clopidogrel 75 mg PO QAM 10/11/18 10/11/18 History Patient History Social History Preferred Language: Frisian Communication Ability: Effective P[employer] Beef Required: No Beliefs That Will Affect Care: None Current Living Situation: Alone Other Information That Helps Us Care for You: No Feels Safe at Home: Yes Safety Concerns: Feels Safe At This Time Smoking Status: Never smoker Do You Dip or Chew Tobacco: No Second Hand Exposure: No Tobacco Cessation Education Requested by Patient: No Hx Alcohol Use: No Hx Substance Use: No Review of Systems Review of Systems: Unobtainable due to reduced consciousness unable to obtain due to severity of illness Physical Exam Physical Exam: Constitutional: uncomfortable on bipap in respiratory distress HEENT: normocephalic atraumatic. MMM. no cervical lymphadenopathy CV: tachycardic nl s1,s2 no murmurs rubs or gallops Lungs: decreased bilaterally. no accessory muscle use Abd: soft nontender nondistended. normal bowel sounds Ext: no edema. no cyanosis, no clubbing Skin: warm dry Neuro: awake but lethargic answers simple questions. moving all extremities Psych: normal mood and affect Results & Data Vital Signs (Past 12 Hours) Vital Signs Temp Pulse Pulse Resp BP BP Pulse Ox 10/12/18 08:47 141 H 139/103 H 10/12/18 08:16 131 H 142/109 H 10/12/18 08:00 36.9 C 138 H 28 H 96 10/12/18 07:51 176 H 40 H 10/12/18 07:02 37.1 C 140 H 30 H 155/109 H 90 10/12/18 03:21 37.5 C 73 18 133/73 98 10/12/18 00:00 77 10/11/18 22:39 36.9 C 81 16 147/95 H 95 10/11/18 22:01 77 25 H 133/52 L 97 Laboratory Results Laboratory Results - last 24 hr 10/11/18 10/11/18 10/11/18 17:25 17:25 17:25 WBC 7.89 RBC 3.98 L Hgb 11.3 L Hct 34.3 L MCV 86.2 MCH 28.4 MCHC 32.9 RDW Std Deviation 46.0 RDW Coeff of Danya 14.6 H Plt Count 291 MPV 9.6 Immature Gran % (Auto) 0.0 Neut % (Auto) 85.3 Lymph % (Auto) 6.3 Antelope % (Auto) 8.0 Eos % (Auto) 0.1 Baso % (Auto) 0.3 Immature Gran # (Auto) 0.00 Neut # (Auto) 6.73 H Lymph # (Auto) 0.50 L Antelope # (Auto) 0.63 H Eos # (Auto) 0.01 Baso # (Auto) 0.02 PT INR APTT PTT Ratio ABG pH ABG pCO2 ABG pO2 ABG HCO3 ABG O2 Saturation ABG Base Excess Geovany Test Barometric Pressure Oxygen Given Sodium 135 L Potassium 3.2 L Chloride 105 Carbon Dioxide 19 L Anion Gap 11.0 BUN 13 Creatinine 0.54 L Est Cr Clr Drug Dosing 73.2 Est GFR ( Amer) 104.8 Est GFR (Non-Af Amer) 90.4 BUN/Creatinine Ratio 23.1 H Glucose 115 H Lactate 2.1 H* Calcium 9.1 Phosphorus Magnesium 1.8 Total Bilirubin 0.8 AST 24 ALT 20 Alkaline Phosphatase 122 H Total Creatine Kinase 112 Troponin I 1.540 H* Total Protein 7.6 Albumin 3.6 Globulin 4.0 Albumin/Globulin Ratio 0.9 Urine Color Urine Appearance Urine pH Ur Specific [place] Urine Protein Urine Glucose (UA) Urine Ketones Urine Blood Urine Nitrite Urine Bilirubin Urine Urobilinogen Ur Leukocyte Esterase Urine WBC (Auto) Urine RBC (Auto) U Hyaline Cast (Auto) U Epithel Cells (Auto) Urine Bacteria (Auto) Stl C. diff Tox B Gene Lyme Disease IgG Ab Lyme Disease IgM Ab 10/11/18 10/11/18 10/11/18 17:25 18:20 19:25 WBC RBC Hgb Hct MCV MCH MCHC RDW Std Deviation RDW Coeff of Danya Plt Count MPV Immature Gran % (Auto) Neut % (Auto) Lymph % (Auto) Antelope % (Auto) Eos % (Auto) Baso % (Auto) Immature Gran # (Auto) Neut # (Auto) Lymph # (Auto) Antelope # (Auto) Eos # (Auto) Baso # (Auto) PT INR APTT PTT Ratio ABG pH ABG pCO2 ABG pO2 ABG HCO3 ABG O2 Saturation ABG Base Excess Geovany Test Barometric Pressure Oxygen Given Sodium Potassium Chloride Carbon Dioxide Anion Gap BUN Creatinine Est Cr Clr Drug Dosing Est GFR ( Amer) Est GFR (Non-Af Amer) BUN/Creatinine Ratio Glucose Lactate Calcium Phosphorus Magnesium Total Bilirubin AST ALT Alkaline Phosphatase Total Creatine Kinase Troponin I Total Protein Albumin Globulin Albumin/Globulin Ratio Urine Color Yellow Urine Appearance Cloudy A Urine pH 5.0 Ur Specific [place] 1.024 Urine Protein 1+ H Urine Glucose (UA) Negative Urine Ketones 2+ H Urine Blood 1+ H Urine Nitrite Positive A Urine Bilirubin Negative Urine Urobilinogen Negative Ur Leukocyte Esterase Trace H Urine WBC (Auto) >30 H Urine RBC (Auto) 0-4 U Hyaline Cast (Auto) 1-5 U Epithel Cells (Auto) 0-5 Urine Bacteria (Auto) 4+ H Stl C. diff Tox B Gene Negative Cdiff Gene Lyme Disease IgG Ab Negative Lyme Disease IgM Ab Negative 10/11/18 10/11/18 10/12/18 23:27 23:54 05:20 WBC RBC Hgb Hct MCV MCH MCHC RDW Std Deviation RDW Coeff of Danya Plt Count MPV Immature Gran % (Auto) Neut % (Auto) Lymph % (Auto) Antelope % (Auto) Eos % (Auto) Baso % (Auto) Immature Gran # (Auto) Neut # (Auto) Lymph # (Auto) Antelope # (Auto) Eos # (Auto) Baso # (Auto) PT 10.3 INR 1.0 APTT PTT Ratio ABG pH ABG pCO2 ABG pO2 ABG HCO3 ABG O2 Saturation ABG Base Excess Geovany Test Barometric Pressure Oxygen Given Sodium Potassium Chloride Carbon Dioxide Anion Gap BUN Creatinine Est Cr Clr Drug Dosing Est GFR ( Amer) Est GFR (Non-Af Amer) BUN/Creatinine Ratio Glucose Lactate 0.8 Calcium Phosphorus Magnesium Total Bilirubin AST ALT Alkaline Phosphatase Total Creatine Kinase Troponin I 1.950 H* Total Protein Albumin Globulin Albumin/Globulin Ratio Urine Color Urine Appearance Urine pH Ur Specific [place] Urine Protein Urine Glucose (UA) Urine Ketones Urine Blood Urine Nitrite Urine Bilirubin Urine Urobilinogen Ur Leukocyte Esterase Urine WBC (Auto) Urine RBC (Auto) U Hyaline Cast (Auto) U Epithel Cells (Auto) Urine Bacteria (Auto) Stl C. diff Tox B Gene Lyme Disease IgG Ab Lyme Disease IgM Ab 10/12/18 10/12/18 10/12/18 05:20 05:20 05:20 WBC 6.10 RBC 3.71 L Hgb 10.5 L Hct 32.2 L MCV 86.8 MCH 28.3 MCHC 32.6 RDW Std Deviation 46.8 H RDW Coeff of Danya 14.8 H Plt Count 238 MPV 9.4 Immature Gran % (Auto) 0.2 Neut % (Auto) 79.9 Lymph % (Auto) 9.2 Antelope % (Auto) 10.3 Eos % (Auto) 0.2 Baso % (Auto) 0.2 Immature Gran # (Auto) 0.01 Neut # (Auto) 4.88 Lymph # (Auto) 0.56 L Antelope # (Auto) 0.63 H Eos # (Auto) 0.01 Baso # (Auto) 0.01 PT INR APTT PTT Ratio ABG pH ABG pCO2 ABG pO2 ABG HCO3 ABG O2 Saturation ABG Base Excess Geovany Test Barometric Pressure Oxygen Given Sodium 139 Potassium 4.1 D Chloride 110 H Carbon Dioxide 19 L Anion Gap 10.0 BUN 12 Creatinine 0.49 L Est Cr Clr Drug Dosing 77.7 Est GFR ( Amer) 108.2 Est GFR (Non-Af Amer) 93.3 BUN/Creatinine Ratio 24.6 H Glucose 103 H Lactate Calcium 8.7 Phosphorus Magnesium 1.6 L Total Bilirubin AST ALT Alkaline Phosphatase Total Creatine Kinase Troponin I 2.390 H* Total Protein Albumin Globulin Albumin/Globulin Ratio Urine Color Urine Appearance Urine pH Ur Specific [place] Urine Protein Urine Glucose (UA) Urine Ketones Urine Blood Urine Nitrite Urine Bilirubin Urine Urobilinogen Ur Leukocyte Esterase Urine WBC (Auto) Urine RBC (Auto) U Hyaline Cast (Auto) U Epithel Cells (Auto) Urine Bacteria (Auto) Stl C. diff Tox B Gene Lyme Disease IgG Ab Lyme Disease IgM Ab 10/12/18 10/12/18 10/12/18 05:20 07:28 07:40 WBC RBC Hgb Hct MCV MCH MCHC RDW Std Deviation RDW Coeff of Danya Plt Count MPV Immature Gran % (Auto) Neut % (Auto) Lymph % (Auto) Antelope % (Auto) Eos % (Auto) Baso % (Auto) Immature Gran # (Auto) Neut # (Auto) Lymph # (Auto) Antelope # (Auto) Eos # (Auto) Baso # (Auto) PT INR APTT 27.2 PTT Ratio 1.0 ABG pH 7.19 L* ABG pCO2 30 L ABG pO2 60 L ABG HCO3 11 L ABG O2 Saturation 86.3 L ABG Base Excess -15.8 L Geovany Test Pos Barometric Pressure 730.0 Oxygen Given 5L Sodium Potassium Chloride Carbon Dioxide Anion Gap BUN Creatinine Est Cr Clr Drug Dosing Est GFR ( Amer) Est GFR (Non-Af Amer) BUN/Creatinine Ratio Glucose Lactate Calcium Phosphorus Magnesium Total Bilirubin AST ALT Alkaline Phosphatase Total Creatine Kinase Troponin I 3.540 H* Total Protein Albumin Globulin Albumin/Globulin Ratio Urine Color Urine Appearance Urine pH Ur Specific [place] Urine Protein Urine Glucose (UA) Urine Ketones Urine Blood Urine Nitrite Urine Bilirubin Urine Urobilinogen Ur Leukocyte Esterase Urine WBC (Auto) Urine RBC (Auto) U Hyaline Cast (Auto) U Epithel Cells (Auto) Urine Bacteria (Auto) Stl C. diff Tox B Gene Lyme Disease IgG Ab Lyme Disease IgM Ab 10/12/18 10/12/18 10/12/18 09:45 09:45 09:45 WBC Pending RBC Pending Hgb Pending Hct Pending MCV Pending MCH Pending MCHC Pending RDW Std Deviation RDW Coeff of Danya Plt Count Pending MPV Immature Gran % (Auto) Neut % (Auto) Lymph % (Auto) Antelope % (Auto) Eos % (Auto) Baso % (Auto) Immature Gran # (Auto) Neut # (Auto) Lymph # (Auto) Antelope # (Auto) Eos # (Auto) Baso # (Auto) PT INR APTT PTT Ratio ABG pH ABG pCO2 ABG pO2 ABG HCO3 ABG O2 Saturation ABG Base Excess Geovany Test Barometric Pressure Oxygen Given Sodium Pending Potassium Pending Chloride Pending Carbon Dioxide Pending Anion Gap Pending BUN Pending Creatinine Pending Est Cr Clr Drug Dosing Pending Est GFR ( Amer) Pending Est GFR (Non-Af Amer) Pending BUN/Creatinine Ratio Pending Glucose Pending Lactate Pending Calcium Pending Phosphorus Pending Magnesium Pending Total Bilirubin AST ALT Alkaline Phosphatase Total Creatine Kinase Troponin I Total Protein Albumin Globulin Albumin/Globulin Ratio Urine Color Urine Appearance Urine pH Ur Specific [place] Urine Protein Urine Glucose (UA) Urine Ketones Urine Blood Urine Nitrite Urine Bilirubin Urine Urobilinogen Ur Leukocyte Esterase Urine WBC (Auto) Urine RBC (Auto) U Hyaline Cast (Auto) U Epithel Cells (Auto) Urine Bacteria (Auto) Stl C. diff Tox B Gene Lyme Disease IgG Ab Lyme Disease IgM Ab Diagnostic Findings XR chest 1V portable HISTORY: 77 years-old Female sob, tachycardia acute shortness of breath COMPARISON: Chest radiograph 10/11/2017 TECHNIQUE: Portable AP view of the chest FINDINGS: Pretty mediastinal and hilar silhouettes are within normal limits. There is no pneumothorax or large pleural effusion. Interval development of right greater than left interstitial opacities with right perihilar alveolar densities. Degenerative changes of the shoulders and spine. IMPRESSION: Interval development of right greater than left interstitial opacities and right perihilar alveolar densities suggestive of asymmetric pulmonary edema versus pneumonitis. Correlate clinically. The above report was generated using voice recognition software. It may contain grammatical, syntax or spelling errors. Electronically signed by: Dallas Shine M.D. 10/12/2018 8:03 AM PG Care Time/CCT Critical Care Time: Yes Total Critical Care Time: 80
[2018-10-12 10:15] LABS: Basophils # (auto) 0.01 K/uL (0-0.2); Basophils % (auto) 0.1 %; Echinocytes 1+; Immature Granulocytes # (auto) 0.04 K/uL (0.00-0.02); Immature Granulocytes % (auto) 0.3 %; Lymphocytes # (auto) 0.74 K/uL (1.2-3.4); Lymphocytes % (auto) 5.4 %; Monocytes # (auto) 0.41 K/uL (0.11-0.59); Neutrophils # (auto) 12.58 K/uL (1.4-6.5); Neutrophils % (auto) 91.2 %
--- NOTE | 2018-10-12 10:21 | Cardiology Consultation ---
Date of Consultation October 12, 2018 Assessment & Plan (1) Acute respiratory failure with hypoxemia: 2. Multivessel CAD 3. SVT 4. Possible ACS 5. Weakness/Diarrhea 6. UTI 7. Inclusion body myositis. 8. Anemia Acute respiratory distress this morning requiring bipap occurring in the setting of SVT New infiltrate on chest xray. Intracardiac filling pressures on echo look normal Troponin trending up. Lateral ST changes on ECG with tachycardia. No clear endorsed chest pain. Echo shows persistent inferior WMA and slight decline in overall function which suspect secondary to tachycardia. At this point do not feel acute decompensation secondary to repeat primary ACS/stent thrombosis. Suspect troponin/ST changes secondary to acute illness, respiratory distress and SVT. Going forward recommend continued rate control with additional metoprolol, diltiazem. Hold off on additional diuretics. Continue home DAPT and heparin infusion. No plans for repeat catheterization at this time. Will follow. History of Present Illness Attending Physician: Mamadou Bbacock, DO History of Present Illness Mrs. 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 Upon admission initially he dynamically stable, maintaining O2 sats in the high 90s on room air with EKG showing sinus rhythm and no significant ST of normal ities. Initial troponin elevated at 1.5. Started on IV fluids, antibiotics. This morning became progressively dyspneic, with SVT to the 170s, given adenosine, metoprolol with HR down to 110s. Transferred to ICU now on BiPAP and 15 L. Subsequent EKG showed SVT/?sinus with lateral ST depressions. Troponin now up to 3.5. Chest x-ray showed right greater than left opacities. ABG hypoxic with respiratory/metabolic acidosis. Given 80 of IV Lasix with 200 urine output. Currently patient unable to provide much history. Denies any real chest pain. Per family had no chest pain preceding events. Repeat echo at time of respiratory distress/tachycardia showed moderate LV dysfunction with persistent severe inferior hypokinesis, base to mid septal hypokinesis. Normal RV function. Collapsed IVC. Allergies Allergy/AdvReac Type Severity Reaction Status Date / Time No Known Allergies Allergy Verified 10/11/18 17:23 Home Medications Home Medications Medication Instructions Recorded Confirmed Type Citrucel (sucrose) 1 tbsp PO QAM 08/03/18 10/11/18 History Ivig 1 dose IV MONTHLY 08/03/18 10/11/18 History allopurinol 100 mg PO QAM 08/03/18 10/11/18 History cholecalciferol (vitamin D3) 2,000 unit PO BID 08/03/18 10/11/18 History [Vitamin D3] cyanocobalamin (vitamin B-12) 1,000 mcg IM MONTHLY 08/03/18 10/11/18 History duloxetine [Cymbalta] 60 mg PO HS 08/03/18 10/11/18 History gabapentin [Neurontin] 600 mg PO TID 08/03/18 10/11/18 History levothyroxine 88 mcg PO QAM 08/03/18 10/11/18 History mycophenolate mofetil [CellCept] 1,000 mg PO BID 08/03/18 10/11/18 History Toprol XL 25 mg PO DAILY 10/11/18 10/11/18 History acetaminophen [Tylenol Extra 500 mg PO TID 10/11/18 10/11/18 History Strength] aspirin [Ecotrin Low Strength] 81 mg PO QAM 10/11/18 10/11/18 History atorvastatin 40 mg PO HS 10/11/18 10/11/18 History clopidogrel 75 mg PO QAM 10/11/18 10/11/18 History Patient History Social History Preferred Language: Divehi Communication Ability: Effective 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 Beliefs That Will Affect Care: None Current Living Situation: Alone Other Information That Helps Us Care for You: No Feels Safe at Home: Yes Safety Concerns: Feels Safe At This Time Smoking Status: Never smoker Do You Dip or Chew Tobacco: No Second Hand Exposure: No Tobacco Cessation Education Requested by Patient: No Hx Alcohol Use: No Hx Substance Use: No Review of Systems Review of Systems: Unobtainable due to cognitive status Physical Exam Physical Exam: General: Uncomfortable, mild distress with BiPAP in place Eyes: Sclerae anicteric Neck: No JVD Lungs: Crackles at bases right greater than left Cardiac: Tachycardic, regular Vascular: Diminished radial pulses bilaterally Abdomen: Soft, nontender, nondistended, positive bowel sounds. Extremities: Cool, no significant edema Skin: No rashes or lesions. Psych: Alert Results & Data Vital Signs (Past 12 Hours) Vital Signs Temp Pulse Pulse Resp BP BP Pulse Ox 10/12/18 08:47 141 H 139/103 H 10/12/18 08:16 131 H 142/109 H 10/12/18 08:00 36.9 C 138 H 28 H 96 10/12/18 07:51 176 H 40 H 10/12/18 07:02 37.1 C 140 H 30 H 155/109 H 90 10/12/18 03:21 37.5 C 73 18 133/73 98 10/12/18 00:00 77 10/11/18 22:39 36.9 C 81 16 147/95 H 95
[2018-10-12 10:22] LABS: BUN Creatinine Ratio 14.9 (10-20); Calcium 8.7 mg/dl (8.5-10.1); Creatinine Clr Calc Pharmacy 38.4 ml/min; Est GFR (African American) 63.3; Est GFR (Non-African American) 54.6; Magnesium 2.5 mg/dl (1.8-2.4); Phosphorus 4.9 mg/dl (2.5-4.9); Potassium 4.2 mmol/L (3.5-5.1)
[2018-10-12] MEDS ORDERED: ICU PROTOCOL FOR HYPERGLYCEMIA PRN (10:41)
[2018-10-12 10:51] LABS: iSTAT Allen Test Pass; iSTAT Arterial Blood Gas HCO3 13 meg/L (19-24); iSTAT Arterial Blood Gas pCO2 33 mmHg (35-46); iSTAT Arterial Blood Gas pH 7.19 (7.35-7.45); iSTAT Carbon Dioxide 13 mEq/l (24-31); iSTAT FiO2 100 %; iSTAT Hematocrit 36 % (37-47); iSTAT Hemoglobin 12.2 g/dl (12.0-16.0); iSTAT Potassium 3.6 mEq/L (3.3-5.0); iSTAT Site L Radial; iSTAT Sodium 138 mEq/L (135-144)
[2018-10-12 11:00] LABS: T4 Free Thyroxine 1.22 ng/dl (0.8-1.6)
[2018-10-12] MEDS: CHOLECALCIFEROL 1,000 UNITS TAB PO SCH ×2 (11:44→20:57)
[2018-10-12] MEDS: GABAPENTIN 600 MG TAB PO SCH ×2 (11:44→20:53)
[2018-10-12] MEDS: METHYLCELLULOSE POWDER 454 GM JAR PO SCH (12:15)
[2018-10-12] MEDS ORDERED: INSULIN GLARGINE SOLOSTAR 100 UNITS/ML 3 ML PEN SC ONE (12:30)
[2018-10-12] MEDS: INSULIN ASPART 100 UNITS/ML 3 ML PEN SC SCH ×3 (13:16→20:56)
--- NOTE | 2018-10-12 13:37 | Emergency Department Note ---
Entered by Fabiano Bravo acting as a scribe for Jeremias Edwards MD History of Present Illness General Chief complaint: Weakness Stated complaint: NAUSEA, VOMITING, RUNS, WEAK Time Seen by Provider: 10/11/18 16:23 Source: patient and family History of Present Illness Onset (ago): day(s) 1 Location: head (weakness) Pain Consistency: + constant Maximum Pain Intensity: 10 Relieved By: + none Associated symptoms: + denies other symptoms (trouble urinating, and blood in s tool), + cough, + headaches, + nausea/vomiting, + shortness of breath and + othe r (sore throat, diarrhea, dehydration) The patient is a 77 year old F who presents to the Emergency Room with complaints of constant weakness that started 1 day ago. The patient states that she is currently experiencing a sore throat, headache, diarrhea, vomiting, shortness of breath, coughing, and dehydration. The patient adds that she has vomited 2-3 times today. She notes that she has had too many episodes of diarrhea to count. She denies experiencing a fever, trouble urinating, and blood in stool. The patient denies a history of lung issues. The patients family states that th e patient had a heart attack two months ago and had to get two stents placed. 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 They add that the patient is immunocompromised. The patient states that she goes outside a lot but denies experiencing any tick bites. She notes that she is on Plavix. She states that she ate minimally yesterday but did not eat today. She denies being around any sick friends or family. Home Medications Home Medications Medication Instructions Recorded Confirmed Type Citrucel (sucrose) 1 tbsp PO QAM 08/03/18 10/11/18 History Ivig 1 dose IV MONTHLY 08/03/18 10/11/18 History allopurinol 100 mg PO QAM 08/03/18 10/11/18 History cholecalciferol (vitamin D3) 2,000 unit PO BID 08/03/18 10/11/18 History [Vitamin D3] cyanocobalamin (vitamin B-12) 1,000 mcg IM MONTHLY 08/03/18 10/11/18 History duloxetine [Cymbalta] 60 mg PO HS 08/03/18 10/11/18 History gabapentin [Neurontin] 600 mg PO TID 08/03/18 10/11/18 History levothyroxine 88 mcg PO QAM 08/03/18 10/11/18 History mycophenolate mofetil [CellCept] 1,000 mg PO BID 08/03/18 10/11/18 History Toprol XL 25 mg PO DAILY 10/11/18 10/11/18 History acetaminophen [Tylenol Extra 500 mg PO TID 10/11/18 10/11/18 History Strength] aspirin [Ecotrin Low Strength] 81 mg PO QAM 10/11/18 10/11/18 History atorvastatin 40 mg PO HS 10/11/18 10/11/18 History clopidogrel 75 mg PO QAM 10/11/18 10/11/18 History Allergies Allergy/AdvReac Type Severity Reaction Status Date / Time No Known Allergies Allergy Verified 10/11/18 17:23 Past Med/Surg History Social History Preferred Language: Colombian Communication Ability: Effective Deployment Engineer Required: No Beliefs That Will Affect Care: None Current Living Situation: Alone Other Information That Helps Us Care for You: No Feels Safe at Home: Yes Safety Concerns: Feels Safe At This Time Smoking Status: Never smoker Do You Dip or Chew Tobacco: No Second Hand Exposure: No Tobacco Cessation Education Requested by Patient: No Hx Alcohol Use: No Hx Substance Use: No Review of Systems See HPI for pertinent positives & negatives. and A total of 10 systems reviewed and were otherwise negative Physical Exam Vital Signs Vital Signs - 24 hr 10/11/18 18:32 10/11/18 19:02 10/11/18 19:31 Pulse Rate 74 79 73 Pulse Rate from SpO2 Sensor 76 81 71 Respiratory Rate 23 24 22 Blood Pressure 130/91 100/57 L 119/81 Blood Pressure Mean 104 71 93 Pulse Oximetry 96 98 97 Oxygen Delivery Method Room Air Room Air Room Air 10/11/18 20:00 10/11/18 20:31 Pulse Rate 83 68 Pulse Rate from SpO2 Sensor 69 66 Respiratory Rate 22 22 Blood Pressure 117/62 111/58 L Blood Pressure Mean 80 75 Pulse Oximetry 98 94 Oxygen Delivery Method Room Air GENERAL: Patient is in no acute distress. HEENT: No acute trauma, normocephalic atraumatic, mucous membranes dry, no nasal congestion, no scleral icterus. No throat erythema or exudate. Hoarse voice. NECK: No stridor, no adenopathy, no meningismus, trachea is midline. LUNGS: Clear to auscultation bilaterally, no wheeze, no rhonchi, breath sounds equal. HEART: Irregular rhythm, normal rate, no murmurs. ABDOMEN: Soft, nontender, bowel sounds positive, no hernias, no peritonitis. EXTREMITIES: No cyanosis or edema, full range of motion of all the joints without pain or difficulty, no signs for acute trauma. NEUROLOGIC: Oriented x 3, no acute motor or sensory deficits, no focal weakness. SKIN: No rash, no jaundice, no diaphoresis. Course 1630: The patient was evaluated in room A10. A complete history and physical exam was performed. 1904: I reviewed the patient's case with EDUARDO [facility] Hospitalist. She will evaluate the patient for further management. 1906: I re-checked the patient. The patient is feeling a little better but understands why she is being admitted to the hospital. Consultations Consultation #1: I reviewed the patient's case with EDUARDO Avilesist. She will evaluate the patient for further management. Time: 19:05 Administered Medications Allopurinol (Zyloprim) 100 mg PO [facility] Stop: 11/11/18 08:59 Last Admin: 10/12/18 13:43 Dose: 100 mg Documented by: [id number] Aspirin (Ecotrin Ectab) 81 mg PO [facility] Stop: 11/11/18 08:59 Last Admin: 10/12/18 13:43 Dose: 81 mg Documented by: [id number] Atorvastatin Calcium (Lipitor) 40 mg PO [facility] Stop: 11/10/18 22:37 Last Admin: 10/11/18 23:52 Dose: 40 mg Documented by: [id number] Clopidogrel Bisulfate (Plavix) 75 mg PO [facility] Stop: 11/11/18 08:59 Last Admin: 10/12/18 13:43 Dose: 75 mg Documented by: [id number] Duloxetine HCl (Cymbalta) 60 mg PO [facility] Stop: 11/10/18 22:37 Last Admin: 10/11/18 23:52 Dose: 60 mg Documented by: [id number] Ceftriaxone Sodium 1,000 mg/ (Dextrose) 50 mls @ 100 mls/hr IV Q24H [facility]; Protocol Stop: 10/22/18 08:59 Last Infusion: 10/12/18 10:17 Dose: 0 mls/hr Documented by: [id number] Admin: 10/12/18 09:10 Dose: 100 mls/hr Documented by: [id number] Heparin Sodium/Dextrose (Heparin Sodium/Dextrose) 25,000 units in 500 mls @ 15 mls/hr IV .Q24H [facility]; Protocol Stop: 11/11/18 06:29 Last Titration: 10/12/18 16:45 Dose: 750 units/hr, 15 mls/hr Documented by: [id number] Cosigned by: [id number] Admin: 10/12/18 06:40 Dose: 650 units/hr, 13 mls/hr Documented by: [id number] Cosigned by: [id number] Insulin Aspart (Novolog Flexpen) 0 units SC ACHS [facility] Stop: 11/11/18 12:29 Last Admin: 10/12/18 17:44 Dose: Not Given Documented by: [id number] Cosigned by: [id number] Admin: 10/12/18 13:16 Dose: 2 units Documented by: [id number] Cosigned by: [id number] Levothyroxine Sodium (Synthroid) 88 mcg PO DAILYBB [facility] Stop: 11/11/18 06:29 Last Admin: 10/12/18 09:44 Dose: Not Given Documented by: [id number] Methylcellulose (Citrucel) 14.3 gm PO DAILY [facility] Stop: 11/11/18 08:59 Last Admin: 10/12/18 12:15 Dose: Not Given Documented by: [id number] Metoprolol Succinate (Toprol Xl) 25 mg PO DAILY [facility] Stop: 11/11/18 08:59 Last Admin: 10/12/18 13:43 Dose: 25 mg Documented by: [id number] Mycophenolate Mofetil (Cellcept) 1,000 mg PO BID [facility] Stop: 11/10/18 22:37 Last Admin: 10/12/18 13:43 Dose: 1,000 mg Documented by: [id number] Admin: 10/11/18 23:55 Dose: 1,000 mg Documented by: [id number] Vitamin D (Vitamin D3) 2,000 units PO BID [facility] Stop: 11/10/18 22:37 Last Admin: 10/12/18 11:44 Dose: Not Given Documented by: [id number] Admin: 10/11/18 23:51 Dose: 2,000 units Documented by: [id number] Discontinued Medications Adenosine (Adenosine) Confirm Administered Dose 12 mg IV .STK-MED ONE Stop: 10/12/18 08:05 Last Admin: 10/12/18 08:16 Dose: 12 mg Documented by: [id number] Adenosine (Adenosine) 6 mg IV NOW STA Stop: 10/12/18 08:33 Last Admin: 10/12/18 08:47 Dose: 6 mg Documented by: [id number] Adenosine (Adenosine) 12 mg IV NOW STA Stop: 10/12/18 08:33 Last Admin: 10/12/18 08:47 Dose: 12 mg Documented by: [id number] Furosemide (Lasix) Confirm Administered Dose 10 mg IV .STK-MED ONE Stop: 10/12/18 07:34 Last Admin: 10/12/18 08:16 Dose: Not Given Documented by: [id number] Gabapentin (Neurontin) 600 mg PO TID [facility] Stop: 11/10/18 22:37 Last Admin: 10/12/18 11:44 Dose: Not Given Documented by: [id number] Admin: 10/11/18 23:51 Dose: 600 mg Documented by: [id number] Sodium Chloride (Nss 1000ml) 1,000 mls @ 999 mls/hr IV .Q1H1M [facility] Stop: 10/11/18 17:45 Last Infusion: 10/11/18 18:43 Dose: 0 mls/hr Documented by: [id number] Admin: 10/11/18 17:42 Dose: 999 mls/hr Documented by: [id number] Potassium Chloride (K Abelardo / Wtr) 10 meq in 100 mls @ 100 mls/hr IV ONE ONE Stop: 10/11/18 19:27 Last Infusion: 10/11/18 20:27 Dose: 0 mls/hr Documented by: [id number] Admin: 10/11/18 19:24 Dose: 100 mls/hr Documented by: [id number] Ceftriaxone Sodium (Rocephin) 1,000 mg in 50 mls @ 100 mls/hr IV NOW STA Stop: 10/11/18 19:14 Last Infusion: 10/11/18 19:54 Dose: 0 mls/hr Documented by: [id number] Admin: 10/11/18 19:24 Dose: 100 mls/hr Documented by: [id number] Sodium Chloride (Nss 1000ml) 1,000 mls @ 80 mls/hr IV .[id number] [facility] Stop: 11/10/18 22:37 Last Infusion: 10/12/18 07:30 Dose: 0 mls/hr Documented by: [id number] Admin: 10/12/18 00:06 Dose: 80 mls/hr Documented by: [id number] Magnesium Sulfate/Dextrose (Magnesium Sulfate / D5w) 1 gm in 100 mls @ 100 mls/hr IV Q1H [facility] Stop: 10/12/18 09:29 Last Infusion: 10/12/18 10:49 Dose: 0 mls/hr Documented by: [id number] Admin: 10/12/18 09:44 Dose: 100 mls/hr Documented by: [id number] Infusion: 10/12/18 09:44 Dose: 100 mls/hr Documented by: [id number] Admin: 10/12/18 08:46 Dose: 100 mls/hr Documented by: [id number] Furosemide 80 mg/ Syringe 8 mls @ 4 mls/min IV ONE STA Stop: 10/12/18 07:17 Last Admin: 10/12/18 08:15 Dose: 4 mls/min Documented by: [id number] Furosemide 80 mg/ Syringe 8 mls @ 4 mls/min IV ONE ONE Stop: 10/12/18 10:47 Last Admin: 10/12/18 11:00 Dose: 4 mls/min Documented by: [id number] Heparin Sodium (Porcine) 4,000 (units/ Syringe) 4 mls @ 1 mls/min IV ONE ONE; Protocol Stop: 10/12/18 17:53 Last Admin: 10/12/18 18:14 Dose: 1 mls/min Documented by: [id number] Cosigned by: [id number] Insulin Glargine (Lantus Solostar Pen) 5 units SC NOW ONE Stop: 10/12/18 12:31 Last Admin: 10/12/18 13:16 Dose: 5 units Documented by: [id number] Cosigned by: [id number] Ketorolac Tromethamine (Toradol) 10 mg IV NOW STA Stop: 10/11/18 16:33 Last Admin: 10/11/18 17:44 Dose: 10 mg Documented by: [id number] Metoprolol Tartrate (Lopressor) Confirm Administered Dose 5 mg IV .STK-MED ONE Stop: 10/12/18 08:15 Last Admin: 10/12/18 08:16 Dose: 5 mg Documented by: [id number] Metoprolol Tartrate (Lopressor) 5 mg IV NOW STA Stop: 10/12/18 08:33 Last Admin: 10/12/18 08:47 Dose: 5 mg Documented by: [id number] Morphine Sulfate (Morphine Sulfate) Confirm Administered Dose 2 mg .ROUTE .STK- MED ONE Stop: 10/12/18 08:20 Last Admin: 10/12/18 08:47 Dose: 2 mg Documented by: [id number] Morphine Sulfate (Morphine Sulfate) 1 mg IV NOW STA Stop: 10/12/18 08:33 Last Admin: 10/12/18 08:47 Dose: Not Given Documented by: [id number] Nitroglycerin (Nitro-Bid 2%) Confirm Administered Dose 18 inch .ROUTE .STK-MED ONE Stop: 10/12/18 07:37 Last Admin: 10/12/18 08:16 Dose: 18 inch Documented by: [id number] Nitroglycerin (Nitro-Bid 2%) 1 inch EXT NOW STA Stop: 10/12/18 07:39 Last Admin: 10/12/18 08:16 Dose: Not Given Documented by: [id number] Ondansetron HCl (Zofran) 4 mg IV NOW STA Stop: 10/11/18 16:33 Last Admin: 10/11/18 17:44 Dose: 4 mg Documented by: [id number] Potassium Chloride (Klor-Con M10) 40 meq PO NOW STA Stop: 10/11/18 22:39 Last Admin: 10/11/18 23:52 Dose: 40 meq Documented by: [id number] Medical Decision Making Differential Diagnosis Differential diagnosis includes: food bore illness, viral illness, PNA, UTI, bacterial intestinal infection, C-Diff, renal failure, electrolyte imbalance, dehydration Medical Records Attestation: I reviewed the patient's medical records. Home Medications Current Medication List: was personally reviewed by me Laboratory Data Attestation: I reviewed the patient's lab results. Result diagrams: 10/12/18 09:45 10/12/18 09:45 Lab Results 10/11/18 10/11/18 10/11/18 Range/Units 17:25 17:25 17:25 WBC 7.89 (4.8-10.8) K/uL RBC 3.98 L (4.2-5.4) M/uL Hgb 11.3 L (12.0-16.0) g/dL Hct 34.3 L (37-47) % MCV 86.2 (80-100) fL MCH 28.4 (25-34) pg MCHC 32.9 (32-36) g/dL RDW Std Deviation 46.0 (36.4-46.3) fL RDW Coeff of Danya 14.6 H (11.5-14.5) % Plt Count 291 (130-400) K/uL MPV 9.6 (7.4-10.4) fL Immature Gran % (Auto) 0.0 % Neut % (Auto) 85.3 % Lymph % (Auto) 6.3 % Cobb % (Auto) 8.0 % Eos % (Auto) 0.1 % Baso % (Auto) 0.3 % Immature Gran # (Auto) 0.00 (0.00-0.02) K/uL Neut # (Auto) 6.73 H (1.4-6.5) K/uL Lymph # (Auto) 0.50 L (1.2-3.4) K/uL Cobb # (Auto) 0.63 H (0.11-0.59) K/uL Eos # (Auto) 0.01 (0-0.5) K/uL Baso # (Auto) 0.02 (0-0.2) K/uL Sodium 135 L (136-145) mmol/L Potassium 3.2 L (3.5-5.1) mmol/L Chloride 105 (98-107) mmol/L Carbon Dioxide 19 L (21-32) mmol/L Anion Gap 11.0 (3-11) BUN 13 (7-18) mg/dl Creatinine 0.54 L (0.6-1.2) mg/dl Est Cr Clr Drug Dosing 73.2 ml/min Est GFR ( Amer) 104.8 Est GFR (Non-Af Amer) 90.4 BUN/Creatinine Ratio 23.1 H (10-20) Glucose 115 H (70-99) mg/dl Lactate 2.1 H* (0.4-2.0) mmol/L Calcium 9.1 (8.5-10.1) mg/dl Magnesium 1.8 (1.8-2.4) mg/dl Total Bilirubin 0.8 (0.2-1) mg/dl AST 24 (15-37) U/L ALT 20 (12-78) U/L Alkaline Phosphatase 122 H (45-117) U/L Total Creatine Kinase 112 (26-192) U/L Troponin I 1.540 H* (0-0.045) ng/ml Total Protein 7.6 (6.4-8.2) gm/dl Albumin 3.6 (3.4-5.0) gm/dl Globulin 4.0 (2.5-4.0) gm/dl Albumin/Globulin Ratio 0.9 (0.9-2) Urine Color Urine Appearance (Clear) Urine pH (4.5-7.5) Ur Specific [place] (1.000-1.030) Urine Protein (Negative) Urine Glucose (UA) (Negative) Urine Ketones (Negative) Urine Blood (Negative) Urine Nitrite (Negative) Urine Bilirubin (Negative) Urine Urobilinogen (Negative) Ur Leukocyte Esterase (Negative) Urine WBC (Auto) (0-5) /hpf Urine RBC (Auto) (0-4) /hpf U Hyaline Cast (Auto) (0-5) /lpf U Epithel Cells (Auto) (0-5) /lpf Urine Bacteria (Auto) (Negative) Stl C. diff Tox B Gene (Neg) Lyme Disease IgG Ab (Negative) Lyme Disease IgM Ab (Negative) 10/11/18 10/11/18 10/11/18 Range/Units 17:25 18:20 19:25 WBC (4.8-10.8) K/uL RBC (4.2-5.4) M/uL Hgb (12.0-16.0) g/dL Hct (37-47) % MCV (80-100) fL MCH (25-34) pg MCHC (32-36) g/dL RDW Std Deviation (36.4-46.3) fL RDW Coeff of Danya (11.5-14.5) % Plt Count (130-400) K/uL MPV (7.4-10.4) fL Immature Gran % (Auto) % Neut % (Auto) % Lymph % (Auto) % Cobb % (Auto) % Eos % (Auto) % Baso % (Auto) % Immature Gran # (Auto) (0.00-0.02) K/uL Neut # (Auto) (1.4-6.5) K/uL Lymph # (Auto) (1.2-3.4) K/uL Cobb # (Auto) (0.11-0.59) K/uL Eos # (Auto) (0-0.5) K/uL Baso # (Auto) (0-0.2) K/uL Sodium (136-145) mmol/L Potassium (3.5-5.1) mmol/L Chloride (98-107) mmol/L Carbon Dioxide (21-32) mmol/L Anion Gap (3-11) BUN (7-18) mg/dl Creatinine (0.6-1.2) mg/dl Est Cr Clr Drug Dosing ml/min Est GFR ( Amer) Est GFR (Non-Af Amer) BUN/Creatinine Ratio (10-20) Glucose (70-99) mg/dl Lactate (0.4-2.0) mmol/L Calcium (8.5-10.1) mg/dl Magnesium (1.8-2.4) mg/dl Total Bilirubin (0.2-1) mg/dl AST (15-37) U/L ALT (12-78) U/L Alkaline Phosphatase (45-117) U/L Total Creatine Kinase (26-192) U/L Troponin I (0-0.045) ng/ml Total Protein (6.4-8.2) gm/dl Albumin (3.4-5.0) gm/dl Globulin (2.5-4.0) gm/dl Albumin/Globulin Ratio (0.9-2) Urine Color Yellow Urine Appearance Cloudy A (Clear) Urine pH 5.0 (4.5-7.5) Ur Specific [place] 1.024 (1.000-1.030) Urine Protein 1+ H (Negative) Urine Glucose (UA) Negative (Negative) Urine Ketones 2+ H (Negative) Urine Blood 1+ H (Negative) Urine Nitrite Positive A (Negative) Urine Bilirubin Negative (Negative) Urine Urobilinogen Negative (Negative) Ur Leukocyte Esterase Trace H (Negative) Urine WBC (Auto) >30 H (0-5) /hpf Urine RBC (Auto) 0-4 (0-4) /hpf U Hyaline Cast (Auto) 1-5 (0-5) /lpf U Epithel Cells (Auto) 0-5 (0-5) /lpf Urine Bacteria (Auto) 4+ H (Negative) Stl C. diff Tox B Gene Negative Cdiff Gene (Neg) Lyme Disease IgG Ab Negative (Negative) Lyme Disease IgM Ab Negative (Negative) Imaging Data Radiologist's Impression: Radiology results as stated below per my review and the radiologist's interpretation: XR chest 1V portable CLINICAL HISTORY: weakness COMPARISON STUDY: 08/03/2018 FINDINGS: The cardiac and mediastinal contours are normal. There is no evidence of focal pulmonary consolidation. There is no evidence of failure. No pleural effusions are visualized.[ IMPRESSION: No active disease in the chest. Electronically signed by: Ignacio Jansen M.D. 10/11/2018 4:50 PM ECG Data Attestation: I personally reviewed and interpreted this ECG as follows: Indication: weakness Rate (beats per minute): 77 Rhythm: sinus rhythm Findings: + other (poor R-wave progression), + PAC and + ST depression (subtle laterally) Comparison ECG Date: from (08/04/18) Change: the following changes noted (Todays EKG is significantly improved compared to old) Blood Pressure Blood Pressure Findings: Low blood pressure Blood Pressure Disposition: further management by hospitalist MDM Narrative There is no leukocytosis or concerning anemia. No significant electrolyte abnormality or kidney failure. No elevation to the liver enzymes. Lactic acid level was slightly elevated at 2.1, this is consistent with infection and/or dehydration. EKG showed a sinus rhythm with some subtle ST changes laterally. In general though the EKG appears improved compared to her most recent EKG. No evidence for ST elevation. Cardiac troponin was elevated at 1.5. This is concerning for cardiac injury or strain. I suppose this could be from mismatch as well. Urinalysis does show infection with nitrates, white blood cells and bacteria. Urine culture is pending. Stool C. difficile testing returned negative. Lyme disease testing returned negative. Stool culture results are still pending. Chest x-ray did not show pneumonia or CHF. The patient received IV potassium, she was given IV saline and IV Zofran. She received IV Toradol and then IV ceftriaxone. The patient is comfortable. She is immunocompromised and has a UTI. She has had diarrhea and vomiting and is dehydrated. She has an elevated troponin which needs further work-up. Hospitalization is warranted. I talked to the patient, I talked to the family. Case management has been involved. The on-call hospitalist was consulted. Impression & Plan UTI (urinary tract infection), Dehydration, Weakness, Elevated troponin, Vomiting, Diarrhea Discharge Plan Visit Data *Final* Discharge Date/Time: 10/11/18 22:29 Chief Complaint: Weakness Stated Complaint: NAUSEA, VOMITING, RUNS, WEAK ED Provider: Jeremias Edwards Discharge Problem: UTI (urinary tract infection), Dehydration, Weakness, Elevated troponin, Vomiting, Diarrhea Patient Disposition: Admitted As Inpatient Discharge Instructions Interventions: ED Discharge Assessment Last Done: 10/11/18 22:29 Discharge Problem: UTI (urinary tract infection) Qualifiers: Urinary tract infection type: site unspecified Hematuria presence: without hematuria Qualified Code(s): N39.0 - Urinary tract infection, site not specified Vomiting Qualifiers: Vomiting type: unspecified Vomiting Intractability: non-intractable Nausea presence: with nausea Qualified Code(s): R11.2 - Nausea with vomiting, unspecified Diarrhea Qualifiers: Diarrhea type: unspecified type Qualified Code(s): R19.7 - Diarrhea, unspecifi ed The darleneibe's documentation has been prepared under my direction and personally reviewed by me in its entirety. I confirm that the note above accurately reflects all work, treatment, procedures, and medical decision making performed by me.
[2018-10-12] MEDS: ALLOPURINOL 100 MG TAB PO SCH (13:43)
[2018-10-12] MEDS: METOPROLOL SUCC 25MG EXT REL TAB PO SCH (13:43)
[2018-10-12] MEDS: MYCOPHENOLATE MOFETIL 250 MG CAP PO SCH ×2 (13:43→20:51)
[2018-10-12] MEDS: CLOPIDOGREL BISULFATE 75 MG TAB PO SCH (13:43)
[2018-10-12] MEDS: ASPIRIN 81 MG ECTAB PO SCH (13:43)
[2018-10-12 15:28] LABS: Partial Thromboplastin Ratio 1.4; Partial Thromboplastin Time 36.6 Seconds (21.0-31.0)
--- NOTE | 2018-10-12 17:02 | Ultrasound Report ---
US venous doppler LE BI HISTORY: Pain. Edema. dvt? COMPARISON STUDY: None. FINDINGS: There is normal compressibility, flow, and augmentation within the bilateral lower extremit y deep venous systems. IMPRESSION: No DVT within the right or left lower extremity. The above report was generated using voice recognition software. It may contain grammatical, syntax or spelling errors. Electronically signed by: Elton Millan M.D. 10/12/2018 5:01 PM
[2018-10-12] MEDS ORDERED: HEPARIN IV BOLUS 4,000 UNITS in SYRINGE 0 ML IV ONE (17:50)
[2018-10-12] MEDS: DULOXETINE HCL 30 MG CAP PO SCH (20:52)
[2018-10-12] MEDS: ATORVASTATIN 40 MG TAB PO SCH (20:52)
[2018-10-13 00:17] LABS: Partial Thromboplastin Ratio 2.3
[2018-10-13 00:18] LABS: Partial Thromboplastin Time 61.4 Seconds (21.0-31.0)
[2018-10-13 05:38] LABS: Basophils # (auto) 0.02 K/uL (0-0.2); Basophils % (auto) 0.2 %; Eosinophils # (auto) 0.07 K/uL (0-0.5); Eosinophils % (auto) 0.8 %; Hematocrit (blood only) 29.9 % (37-47); Hemoglobin 9.7 g/dL (12.0-16.0); Immature Granulocytes # (auto) 0.02 K/uL (0.00-0.02); Immature Granulocytes % (auto) 0.2 %; Lymphocytes # (auto) 1.06 K/uL (1.2-3.4); Lymphocytes % (auto) 11.8 %; Mean Corpuscular Hgb Conc 32.4 g/dL (32-36); Mean Corpuscular Volume 86.4 fL (80-100); Mean Platelet Volume 9.9 fL (7.4-10.4); Monocytes # (auto) 1.05 K/uL (0.11-0.59); Monocytes % (auto) 11.7 %; Neutrophils # (auto) 6.76 K/uL (1.4-6.5); Neutrophils % (auto) 75.3 %; Platelet Count 302 K/uL (130-400); RDW Standard Deviation 47.5 fL (36.4-46.3); Red Blood Count 3.46 M/uL (4.2-5.4); White Blood Count 8.98 K/uL (4.8-10.8)
[2018-10-13 05:59] LABS: Albumin Globulin Ratio 0.8 (0.9-2); Albumin Level 2.6 gm/dl (3.4-5.0); BUN Creatinine Ratio 20.7 (10-20); Bilirubin,Total 0.3 mg/dl (0.2-1); Calcium 8.3 mg/dl (8.5-10.1); Creatinine Clr Calc Pharmacy 30.2 ml/min; Est GFR (African American) 47.3; Est GFR (Non-African American) 40.8; Globulin 3.4 gm/dl (2.5-4.0); Magnesium 2.3 mg/dl (1.8-2.4)
[2018-10-13 06:02] LABS: Partial Thromboplastin Ratio 1.7
[2018-10-13 06:03] LABS: Partial Thromboplastin Time 45.2 Seconds (21.0-31.0)
[2018-10-13 06:25] LABS: Phosphorus 3.7 mg/dl (2.5-4.9)
[2018-10-13] MEDS: LEVOTHYROXINE SODIUM 88 MCG TABLET PO SCH (06:36)
[2018-10-13] MEDS ORDERED: HEPARIN IV BOLUS 2,000 UNITS in SYRINGE 0 ML IV ONE ×3 (06:45→22:30)
--- NOTE | 2018-10-13 07:08 | XRay Report ---
XR chest 1V portable CLINICAL HISTORY: f/u COMPARISON STUDY: Chest radiograph October 12, 2018. FINDINGS: Interstitial thickening and bilateral opacities have significantly improved since exam of J cayla 2018. There are suspected trace bilateral pleural effusions with bibasilar opacities. Cardiome diastinal silhouette is stable. There is no pneumothorax. IMPRESSION: Significant interval improvement in bilateral airspace opacities and interstitial thicke sj since exam of October 12, 2018. The findings favor improving pulmonary edema. Electronically signed by: Kemal Anne M.D. 10/13/2018 7:06 AM
[2018-10-13] MEDS ORDERED: POTASSIUM CHLORIDE 20 MEQ TABCR PO ONE (07:24)
--- NOTE | 2018-10-13 08:04 | Critical Care Progress Note ---
Date of Service October 13, 2018 Assessment & Plan (1) Acute respiratory failure with hypoxemia: Neuro- awake alert CV- superventricular tachycardia. responded well to metoprolol. now in sinus in 602-70s. NSTEMI. continue aspirin, clopidogrel, atorvastatin. metoprolol. heparin drip. echo with worsening LV function. optimize volume status. now I suspect she is dry with increased cr and diarrhea. encourage PO. may need careful IV fulids Pulmonary- acute hypoxic respiratory failure due to pulmonary edema. improved doing well on NC ID- sepsis with evidence of end organ dysfunction due to e coli UTI. continue ceftriaxone to complete 7 days Renal- acute renal failure likely prerenal/poor perfusion. hold further lasix may need careful fluids GI- diet as tolerated Heme- leukocytosis. heparin drip for NSTEMI and for DVT proph Endocrine- blood sugars controlled. 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 This is a life/limb threatening event. This includes time spent evaluating patient, direct bedside care, chart review, placing orders, interpretation of diagnostic studies, discussion with consultants, patient, and/or family members regarding treatment decisions, as well as other required patient management activities. This time is exclusive of all separately billable procedures, and teaching time and separate from and in addition to any other critical care service time. (2) Pulmonary edema cardiac cause: (3) Acute myocardial infarction: (4) ACS (acute coronary syndrome): Subjective feeling better today. no SOB frequent diarrhea overnight Physical Exam Physical Exam: Constitutional: comfortable NAD HEENT: normocephalic atraumatic. MMM. CV: tachycardic nl s1,s2 no murmurs rubs or gallops Lungs: decreased bilaterally. no accessory muscle use on NC Abd: soft nontender nondistended. normal bowel sounds Ext: no edema. no cyanosis, no clubbing Skin: warm dry Neuro: awake alert. moving all extremities Psych: normal mood and affect Results & Data Vital Signs (Past 12 Hours) Vital Signs Temp Pulse Resp BP Pulse Ox 10/13/18 04:00 36.7 C 69 17 91/54 L 100 10/13/18 03:00 72 22 92/52 L 100 10/13/18 02:01 72 17 89/54 L 86 L 10/13/18 01:01 71 20 84/56 L 100 10/13/18 00:02 36.5 C 71 30 H 93/62 L 10/12/18 23:01 67 20 89/58 L 100 10/12/18 22:00 73 23 98/59 L 100 10/12/18 21:00 74 23 93/60 L 100 10/12/18 20:00 36.7 C 76 25 H 92/64 L 100 Laboratory Results Laboratory Results - last 24 hr 10/12/18 10/12/18 10/12/18 07:28 07:40 09:11 WBC RBC Hgb POC Hgb 12.2 Hct POC Hct 36 L MCV MCH MCHC RDW Std Deviation RDW Coeff of Danya Plt Count MPV Immature Gran % (Auto) Neut % (Auto) Lymph % (Auto) [place] % (Auto) Eos % (Auto) Baso % (Auto) Immature Gran # (Auto) Neut # (Auto) Lymph # (Auto) [place] # (Auto) Eos # (Auto) Baso # (Auto) Echinocytes APTT PTT Ratio Sample Site L Radial POC pH 7.19 L* POC pCO2 33 L POC pO2 226 H POC HCO3 13 L POC Total CO2 13 L POC Base Excess -16.0 L ABG pH 7.19 L* ABG pCO2 30 L ABG pO2 60 L ABG HCO3 11 L ABG O2 Saturation 86.3 L ABG Base Excess -15.8 L Geovany Test Pos Pass Barometric Pressure 730.0 Oxygen Given 5L O2 Delivery Device BIPAP POC O2 Rate 12 POC FiO2 100 IPAP 12 POC Sodium 138 Sodium POC Potassium 3.6 Potassium Chloride Carbon Dioxide Anion Gap BUN Creatinine Est Cr Clr Drug Dosing Est GFR ( Amer) Est GFR (Non-Af Amer) BUN/Creatinine Ratio Glucose POC Glucose Lactate Calcium Phosphorus Magnesium Total Bilirubin AST ALT Alkaline Phosphatase Troponin I 3.540 H* Total Protein Albumin Globulin Albumin/Globulin Ratio TSH Free T4 10/12/18 10/12/18 10/12/18 09:45 09:45 09:45 WBC 13.78 H RBC 4.36 Hgb 12.4 POC Hgb Hct 37.9 POC Hct MCV 86.9 MCH 28.4 MCHC 32.7 RDW Std Deviation 46.9 H RDW Coeff of Danya 14.8 H Plt Count 357 MPV 9.8 Immature Gran % (Auto) 0.3 Neut % (Auto) 91.2 Lymph % (Auto) 5.4 [place] % (Auto) 3.0 Eos % (Auto) 0.0 Baso % (Auto) 0.1 Immature Gran # (Auto) 0.04 H Neut # (Auto) 12.58 H Lymph # (Auto) 0.74 L [place] # (Auto) 0.41 Eos # (Auto) 0.00 Baso # (Auto) 0.01 Echinocytes 1+ APTT PTT Ratio Sample Site POC pH POC pCO2 POC pO2 POC HCO3 POC Total CO2 POC Base Excess ABG pH ABG pCO2 ABG pO2 ABG HCO3 ABG O2 Saturation ABG Base Excess Geovany Test Barometric Pressure Oxygen Given O2 Delivery Device POC O2 Rate POC FiO2 IPAP POC Sodium Sodium 138 POC Potassium Potassium 4.2 Chloride 109 H Carbon Dioxide 16 L Anion Gap 13.0 H BUN 15 Creatinine 0.99 D Est Cr Clr Drug Dosing 38.4 Est GFR ( Amer) 63.3 Est GFR (Non-Af Amer) 54.6 BUN/Creatinine Ratio 14.9 Glucose 219 H POC Glucose Lactate 4.0 H* Calcium 8.7 Phosphorus 4.9 Magnesium 2.5 H Total Bilirubin AST ALT Alkaline Phosphatase Troponin I Total Protein Albumin Globulin Albumin/Globulin Ratio TSH Free T4 10/12/18 10/12/18 10/12/18 09:45 11:20 11:39 WBC RBC Hgb POC Hgb Hct POC Hct MCV MCH MCHC RDW Std Deviation RDW Coeff of Danya Plt Count MPV Immature Gran % (Auto) Neut % (Auto) Lymph % (Auto) [place] % (Auto) Eos % (Auto) Baso % (Auto) Immature Gran # (Auto) Neut # (Auto) Lymph # (Auto) [place] # (Auto) Eos # (Auto) Baso # (Auto) Echinocytes APTT PTT Ratio Sample Site POC pH POC pCO2 POC pO2 POC HCO3 POC Total CO2 POC Base Excess ABG pH ABG pCO2 ABG pO2 ABG HCO3 ABG O2 Saturation ABG Base Excess Geovany Test Barometric Pressure Oxygen Given O2 Delivery Device POC O2 Rate POC FiO2 IPAP POC Sodium Sodium POC Potassium Potassium Chloride Carbon Dioxide Anion Gap BUN Creatinine Est Cr Clr Drug Dosing Est GFR ( Amer) Est GFR (Non-Af Amer) BUN/Creatinine Ratio Glucose POC Glucose 223 H Lactate Calcium Phosphorus Magnesium Total Bilirubin AST ALT Alkaline Phosphatase Troponin I 6.660 H* Total Protein Albumin Globulin Albumin/Globulin Ratio TSH 0.243 L Free T4 1.22 10/12/18 10/12/18 10/12/18 15:05 15:05 15:49 WBC RBC Hgb POC Hgb Hct POC Hct MCV MCH MCHC RDW Std Deviation RDW Coeff of Danya Plt Count MPV Immature Gran % (Auto) Neut % (Auto) Lymph % (Auto) [place] % (Auto) Eos % (Auto) Baso % (Auto) Immature Gran # (Auto) Neut # (Auto) Lymph # (Auto) [place] # (Auto) Eos # (Auto) Baso # (Auto) Echinocytes APTT 36.6 H PTT Ratio 1.4 Sample Site POC pH POC pCO2 POC pO2 POC HCO3 POC Total CO2 POC Base Excess ABG pH ABG pCO2 ABG pO2 ABG HCO3 ABG O2 Saturation ABG Base Excess Geovany Test Barometric Pressure Oxygen Given O2 Delivery Device POC O2 Rate POC FiO2 IPAP POC Sodium Sodium POC Potassium Potassium Chloride Carbon Dioxide Anion Gap BUN Creatinine Est Cr Clr Drug Dosing Est GFR ( Amer) Est GFR (Non-Af Amer) BUN/Creatinine Ratio Glucose POC Glucose 159 H Lactate Calcium Phosphorus Magnesium Total Bilirubin AST ALT Alkaline Phosphatase Troponin I 5.700 H* Total Protein Albumin Globulin Albumin/Globulin Ratio TSH Free T4 10/12/18 10/12/18 10/12/18 19:20 20:55 23:39 WBC RBC Hgb POC Hgb Hct POC Hct MCV MCH MCHC RDW Std Deviation RDW Coeff of Danya Plt Count MPV Immature Gran % (Auto) Neut % (Auto) Lymph % (Auto) [place] % (Auto) Eos % (Auto) Baso % (Auto) Immature Gran # (Auto) Neut # (Auto) Lymph # (Auto) [place] # (Auto) Eos # (Auto) Baso # (Auto) Echinocytes APTT 61.4 H* PTT Ratio 2.3 Sample Site POC pH POC pCO2 POC pO2 POC HCO3 POC Total CO2 POC Base Excess ABG pH ABG pCO2 ABG pO2 ABG HCO3 ABG O2 Saturation ABG Base Excess Geovany Test Barometric Pressure Oxygen Given O2 Delivery Device POC O2 Rate POC FiO2 IPAP POC Sodium Sodium POC Potassium Potassium Chloride Carbon Dioxide Anion Gap BUN Creatinine Est Cr Clr Drug Dosing Est GFR ( Amer) Est GFR (Non-Af Amer) BUN/Creatinine Ratio Glucose POC Glucose 122 H Lactate Calcium Phosphorus Magnesium Total Bilirubin AST ALT Alkaline Phosphatase Troponin I 5.800 H* Total Protein Albumin Globulin Albumin/Globulin Ratio TSH Free T4 10/13/18 10/13/18 10/13/18 04:47 04:47 04:47 WBC 8.98 RBC 3.46 L Hgb 9.7 L POC Hgb Hct 29.9 L POC Hct MCV 86.4 MCH 28.0 MCHC 32.4 RDW Std Deviation 47.5 H RDW Coeff of Danya 15.0 H Plt Count 302 MPV 9.9 Immature Gran % (Auto) 0.2 Neut % (Auto) 75.3 Lymph % (Auto) 11.8 [place] % (Auto) 11.7 Eos % (Auto) 0.8 Baso % (Auto) 0.2 Immature Gran # (Auto) 0.02 Neut # (Auto) 6.76 H Lymph # (Auto) 1.06 L [place] # (Auto) 1.05 H Eos # (Auto) 0.07 Baso # (Auto) 0.02 Echinocytes APTT 45.2 H* PTT Ratio 1.7 Sample Site POC pH POC pCO2 POC pO2 POC HCO3 POC Total CO2 POC Base Excess ABG pH ABG pCO2 ABG pO2 ABG HCO3 ABG O2 Saturation ABG Base Excess Geovany Test Barometric Pressure Oxygen Given O2 Delivery Device POC O2 Rate POC FiO2 IPAP POC Sodium Sodium 139 POC Potassium Potassium 3.0 L D Chloride 108 H Carbon Dioxide 18 L Anion Gap 13.0 H BUN 26 H D Creatinine 1.26 H Est Cr Clr Drug Dosing 30.2 Est GFR ( Amer) 47.3 Est GFR (Non-Af Amer) 40.8 BUN/Creatinine Ratio 20.7 H Glucose 88 POC Glucose Lactate Calcium 8.3 L Phosphorus 3.7 D Magnesium 2.3 Total Bilirubin 0.3 D AST 105 H ALT 55 Alkaline Phosphatase 90 Troponin I Total Protein 6.0 L D Albumin 2.6 L Globulin 3.4 Albumin/Globulin Ratio 0.8 L TSH Free T4 10/13/18 07:32 WBC RBC Hgb POC Hgb Hct POC Hct MCV MCH MCHC RDW Std Deviation RDW Coeff of Danya Plt Count MPV Immature Gran % (Auto) Neut % (Auto) Lymph % (Auto) [place] % (Auto) Eos % (Auto) Baso % (Auto) Immature Gran # (Auto) Neut # (Auto) Lymph # (Auto) [place] # (Auto) Eos # (Auto) Baso # (Auto) Echinocytes APTT PTT Ratio Sample Site POC pH POC pCO2 POC pO2 POC HCO3 POC Total CO2 POC Base Excess ABG pH ABG pCO2 ABG pO2 ABG HCO3 ABG O2 Saturation ABG Base Excess Geovany Test Barometric Pressure Oxygen Given O2 Delivery Device POC O2 Rate POC FiO2 IPAP POC Sodium Sodium POC Potassium Potassium Chloride Carbon Dioxide Anion Gap BUN Creatinine Est Cr Clr Drug Dosing Est GFR ( Amer) Est GFR (Non-Af Amer) BUN/Creatinine Ratio Glucose POC Glucose 79 Lactate Calcium Phosphorus Magnesium Total Bilirubin AST ALT Alkaline Phosphatase Troponin I Total Protein Albumin Globulin Albumin/Globulin Ratio TSH Free T4
[2018-10-13] MEDS: cefTRIAXone SODIUM 1,000 MG in DEXTROSE 5% 50 ML IV SCH (08:38)
[2018-10-13] MEDS: POTASSIUM CHLORIDE / WTR 10 MEQ/100 ML PLCT IV SCH ×2 (08:39→09:42)
[2018-10-13] MEDS: INSULIN ASPART 100 UNITS/ML 3 ML PEN SC SCH ×4 (08:41→20:15)
[2018-10-13] MEDS: CLOPIDOGREL BISULFATE 75 MG TAB PO SCH (08:41)
[2018-10-13] MEDS: ASPIRIN 81 MG ECTAB PO SCH (08:41)
[2018-10-13] MEDS: GABAPENTIN 600 MG TAB PO SCH ×2 (08:41→20:22)
[2018-10-13] MEDS: MYCOPHENOLATE MOFETIL 250 MG CAP PO SCH ×2 (08:42→20:18)
[2018-10-13] MEDS: CHOLECALCIFEROL 1,000 UNITS TAB PO SCH ×2 (08:42→20:22)
[2018-10-13] MEDS: METOPROLOL SUCC 25MG EXT REL TAB PO SCH (08:42)
[2018-10-13] MEDS: ALLOPURINOL 100 MG TAB PO SCH (08:42)
[2018-10-13] MEDS: METHYLCELLULOSE POWDER 454 GM JAR PO SCH (08:44)
[2018-10-13 13:50] LABS: Partial Thromboplastin Ratio 1.5; Partial Thromboplastin Time 41.6 Seconds (21.0-31.0)
[2018-10-13] MEDS: Heparin Adult LOW DOSE Wt-Based Dextrose 5% 25,000 units/500 mL IV SCH (14:00)
[2018-10-13 14:09] LABS: BUN Creatinine Ratio 23.7 (10-20); Calcium 8.1 mg/dl (8.5-10.1); Creatinine Clr Calc Pharmacy 28.9 ml/min; Est GFR (African American) 43.5; Est GFR (Non-African American) 37.5; Potassium 3.6 mmol/L (3.5-5.1)
[2018-10-13] MEDS ORDERED: POTASSIUM CHLORIDE 20 MEQ TABCR PO STA (14:58)
[2018-10-13] MEDS: LACTATED RINGER'S 1,000 ML IV SCH (15:40)
--- NOTE | 2018-10-13 18:25 | Cardiology Progress Note ---
Date of Service October 13, 2018 Assessment & Plan (1) Acute respiratory failure with hypoxemia: 2. Multivessel CAD 3. SVT 4. Possible ACS 5. Weakness/Diarrhea 6. UTI 7. Inclusion body myositis. 8. Anemia 9. Acute renal insufficiency Patient looks much improved from yesterday. Troponin has peaked. Do not feel troponin secondary to repeat ACS event. No recurrent SVT Well perfused but looks dry on exam. -- Agree with gentle IV fluids today -- Stop heparin infusion tomorrow after 48 hrs. -- continue DAPT with ASA/clopidogrel. -- continue toprol XL. Hold off on IMMANUEL in setting of CEDRIC. -- continue statin. Subjective Feeling well today. No chest pain. Breathing improved. Continued copious diarrhea overnight Limited urine output today. No recurrent SVT SCR up from 0.5 to 1.35 Review of Systems Review of Systems: All systems reviewed & are unremarkable except as noted in HPI & below Physical Exam Physical Exam: General: Comfortable, no acute distress, off NC HEENT: Sclerae anicteric, Lungs: Clear to auscultation bilaterally, few crackles at rt base Cardiac: Regular rate and rhythm, no murmurs. Abdomen: Soft, nontender, nondistended, positive bowel sounds. Extremities: Warm, well perfused, no edema. 2+ radial pulses Skin: No rashes or lesions. Neuro: Nonfocal Psych: Alert and oriented Results & Data Vital Signs (Past 12 Hours) Vital Signs Temp Pulse Pulse Resp BP BP Pulse Ox 10/13/18 16:18 77 10/13/18 16:00 72 22 97/55 L 98 10/13/18 15:00 36.7 C 79 23 83/52 L 98 10/13/18 14:00 76 20 84/52 L 96 10/13/18 13:00 76 25 H 85/55 L 97 10/13/18 12:00 36.5 C 76 22 94/57 L 99 10/13/18 11:00 73 20 86/52 L 96 10/13/18 10:00 69 23 87/56 L 98 10/13/18 08:00 36.8 C 69 20 97/61 L 94 10/13/18 07:00 70 21 93/56 L 94
[2018-10-13] MEDS: ATORVASTATIN 40 MG TAB PO SCH (20:16)
[2018-10-13] MEDS: DULOXETINE HCL 30 MG CAP PO SCH (20:17)
[2018-10-13 21:23] LABS: Partial Thromboplastin Ratio 1.5; Partial Thromboplastin Time 41.5 Seconds (21.0-31.0)
--- NOTE | 2018-10-13 22:50 | Hospitalist Progress Note ---
Date of Service October 13, 2018 Assessment & Plan (1) Severe sepsis: Patient presented to the ED with malaise and loose stools. C. difficile PCR was negative. Urinalysis suggested a urinary tract infection. Patient did not meet SIRS criteria in the ED, but was receiving a beta-laurie which could have masked tachycardia and receiving mycophenolate mofetil which could suppress leukocytosis. Urine and blood cultures were obtained and patient was placed on intravenous ceftriaxone. Serum lactate was 2.1, repeat 0.8. Subsequently developed tachycardia, cardiac decompensation, acute kidney injury. Urine culture now growing E. coli and 2 out of 2 blood cultures are growing gram-negative bacilli. Probable severe sepsis secondary to urinary tract infection. (2) UTI (urinary tract infection): As discussed above. (3) Diarrhea: Stool C. difficile PCR negative. Stool culture for routine enteric pathogens negative so far. (4) CHF (congestive heart failure): Known ischemic heart disease with EF of 45 to 50% on 08/03/2018. Developed pulmonary edema the morning of 10/12/2018. Probable acute left ventricular heart failure due to sepsis/tachyarrhythmias. Cardiology consulted. Repeat echocardiogram on 10/12/2018 showed LVEF of 30-35%. Improved with diuresis and control of tachyarrhythmia. Continue metoprolol succinate. No IMMANUEL or ARB at this time due to acute kidney injury. (5) Arrhythmia: Narrow complex tachyarrhythmia morning of 10/12. Did not break initially with intravenous adenosine, but eventually slowed after receiving intravenous metoprolol. Unclear whether patient had SVT, sinus tachycardia, or combination of the 2. Rate now controlled with metoprolol. (6) Elevated troponin: Serum troponin I 0.54 at time of admission and paramjit as high as 6.6. Recent STEMI with PCI's of RCA and left circumflex with drug-eluting stents. Cardiology consulted. Isabella most likely the current rise of troponin secondary to demand ischemia from sepsis/arrhythmia rather than a new coronary event. (7) Coronary artery disease: Recent STEMI 08/03/18 with PCI of left circumflex with drug-eluting stent. Elevated troponins as noted above associated with sepsis and tachyarrhythmia. Cardiology consulted. Acute coronary syndrome felt to be unlikely. Continue dual antiplatelet therapy (aspirin and clopidogrel), metoprolol, statin. (8) Acute kidney injury: Serum creatinine at time of admission was 0.54. Creatinine today = 1.26. Acute kidney injury. Possible contributing factors: sepsis, CHF, volume depletion from diuretics and diarrhea. Follow fluid status, labs. (9) Hypokalemia: Serum potassium this morning 3.0. Received IV furosemide yesterday and is also having frequent loose stools. Replace, follow. (10) 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: Continue levothyroxine. (11) Inclusion body myositis: Would be prudent to hold mycophenolate mofetil in setting of sepsis. (12) DVT prophylaxis: Currently receiving IV heparin due to elevated troponins. Anticipate transition to SQ unfractionated heparin or enoxaparin. Ambulate as able. (13) Discharge planning issues: Anticipated discharge to home. Medical follow-up with Dr. Vanegas. Subjective Recheck for multiple problems. Patient seen in their room around 0920. Feels much better today. No further dyspnea or arrhythmias. No chest pain. Frequent diarrhea during the night. Has Beckett catheter. Review of Systems: Constitutional- no fever. Cardiac- as noted above. Pulmonary- no cough or SOB. GI- no nausea, vomiting, melena, hematochezia. - Beckett cath Otherwise, as noted above. Physical Exam Constitutional: no acute distress Eyes: + anicteric sclerae Respiratory: no respiratory distress Auscultation: lungs clear to auscultation bilaterally Cardiovascular: Rate/Rhythm: regular rate and regular rhythm Heart Sounds: + murmur (II/ sys murmur at base); no gallop and no cardiac rub Vessels: no JVD Extremities: no calf tenderness and no edema Gastrointestinal (Abdomen): normal bowel sounds, soft, nontender, no hepatosplenomegaly Skin: no rashes, warm and dry Psychiatric: Orientation: alert and oriented x 3 Genitourinary: + bladder abnormality (Beckett cath) Results & Data Vital Signs (Past 12 Hours) Vital Signs Temp Pulse Pulse Resp BP BP Pulse Ox 10/13/18 22:00 76 22 107/58 L 97 10/13/18 21:00 37.1 C 75 24 100/63 99 10/13/18 19:00 76 22 102/62 97 10/13/18 18:00 73 20 98/57 L 97 10/13/18 16:18 77 10/13/18 16:00 72 22 97/55 L 98 10/13/18 15:00 36.7 C 79 23 83/52 L 98 10/13/18 14:00 76 20 84/52 L 96 10/13/18 13:00 76 25 H 85/55 L 97 10/13/18 12:00 36.5 C 76 22 94/57 L 99 10/13/18 11:00 73 20 86/52 L 96 Laboratory Results Laboratory Results - last 24 hr 10/12/18 10/13/18 10/13/18 23:39 04:47 04:47 WBC RBC Hgb Hct MCV MCH MCHC RDW Std Deviation RDW Coeff of Danya Plt Count MPV Immature Gran % (Auto) Neut % (Auto) Lymph % (Auto) [place] % (Auto) Eos % (Auto) Baso % (Auto) Immature Gran # (Auto) Neut # (Auto) Lymph # (Auto) [place] # (Auto) Eos # (Auto) Baso # (Auto) APTT 61.4 H* 45.2 H* PTT Ratio 2.3 1.7 Sodium 139 Potassium 3.0 L D Chloride 108 H Carbon Dioxide 18 L Anion Gap 13.0 H BUN 26 H D Creatinine 1.26 H Est Cr Clr Drug Dosing 30.2 Est GFR ( Amer) 47.3 Est GFR (Non-Af Amer) 40.8 BUN/Creatinine Ratio 20.7 H Glucose 88 POC Glucose Calcium 8.3 L Phosphorus 3.7 D Magnesium 2.3 Total Bilirubin 0.3 D AST 105 H ALT 55 Alkaline Phosphatase 90 Total Protein 6.0 L D Albumin 2.6 L Globulin 3.4 Albumin/Globulin Ratio 0.8 L Nasal Screen MRSA (PCR) 10/13/18 10/13/18 10/13/18 04:47 07:32 08:50 WBC 8.98 RBC 3.46 L Hgb 9.7 L Hct 29.9 L MCV 86.4 MCH 28.0 MCHC 32.4 RDW Std Deviation 47.5 H RDW Coeff of Danya 15.0 H Plt Count 302 MPV 9.9 Immature Gran % (Auto) 0.2 Neut % (Auto) 75.3 Lymph % (Auto) 11.8 [place] % (Auto) 11.7 Eos % (Auto) 0.8 Baso % (Auto) 0.2 Immature Gran # (Auto) 0.02 Neut # (Auto) 6.76 H Lymph # (Auto) 1.06 L [place] # (Auto) 1.05 H Eos # (Auto) 0.07 Baso # (Auto) 0.02 APTT PTT Ratio Sodium Potassium Chloride Carbon Dioxide Anion Gap BUN Creatinine Est Cr Clr Drug Dosing Est GFR ( Amer) Est GFR (Non-Af Amer) BUN/Creatinine Ratio Glucose POC Glucose 79 Calcium Phosphorus Magnesium Total Bilirubin AST ALT Alkaline Phosphatase Total Protein Albumin Globulin Albumin/Globulin Ratio Nasal Screen MRSA (PCR) Negative 10/13/18 10/13/18 10/13/18 11:36 13:27 13:27 WBC RBC Hgb Hct MCV MCH MCHC RDW Std Deviation RDW Coeff of Danya Plt Count MPV Immature Gran % (Auto) Neut % (Auto) Lymph % (Auto) [place] % (Auto) Eos % (Auto) Baso % (Auto) Immature Gran # (Auto) Neut # (Auto) Lymph # (Auto) [place] # (Auto) Eos # (Auto) Baso # (Auto) APTT 41.6 H PTT Ratio 1.5 Sodium 135 L Potassium 3.6 D Chloride 107 Carbon Dioxide 16 L Anion Gap 12.0 H BUN 32 H Creatinine 1.35 H Est Cr Clr Drug Dosing 28.9 Est GFR ( Amer) 43.5 Est GFR (Non-Af Amer) 37.5 BUN/Creatinine Ratio 23.7 H Glucose 131 H POC Glucose 87 Calcium 8.1 L Phosphorus Magnesium Total Bilirubin AST ALT Alkaline Phosphatase Total Protein Albumin Globulin Albumin/Globulin Ratio Nasal Screen MRSA (PCR) 10/13/18 10/13/18 10/13/18 16:28 20:11 21:02 WBC RBC Hgb Hct MCV MCH MCHC RDW Std Deviation RDW Coeff of Danya Plt Count MPV Immature Gran % (Auto) Neut % (Auto) Lymph % (Auto) [place] % (Auto) Eos % (Auto) Baso % (Auto) Immature Gran # (Auto) Neut # (Auto) Lymph # (Auto) [place] # (Auto) Eos # (Auto) Baso # (Auto) APTT 41.5 H PTT Ratio 1.5 Sodium Potassium Chloride Carbon Dioxide Anion Gap BUN Creatinine Est Cr Clr Drug Dosing Est GFR ( Amer) Est GFR (Non-Af Amer) BUN/Creatinine Ratio Glucose POC Glucose 83 97 Calcium Phosphorus Magnesium Total Bilirubin AST ALT Alkaline Phosphatase Total Protein Albumin Globulin Albumin/Globulin Ratio Nasal Screen MRSA (PCR) Microbiology 10/11/18 17:11 Blood Aerobic Blood Culture - Preliminary Gram negative bacilli 10/11/18 17:11 Blood Anaerobic Blood Culture - Preliminary No growth in Anaerobic bottle after 48 hours. 10/11/18 17:25 Blood Aerobic Blood Culture - Preliminary Gram negative bacilli 10/11/18 17:25 Blood Anaerobic Blood Culture - Preliminary No growth in Anaerobic bottle after 48 hours. 10/11/18 18:20 Urine,Straight Cath Urine Culture - Final Escherichia coli 10/11/18 19:25 Stool Shiga Toxin Test - Preliminary 10/11/18 19:25 Stool Stool Culture - Preliminary No Salmonella isolated to date, No Shigella isolated to date, No Campylobacter jejuni isolated to date. Diagnostic Findings PORTABLE CHEST X-RAY IMPRESSION: Significant interval improvement in bilateral airspace opacities and interstitial thickening since exam of October 12, 2018. The findings favor improving pulmonary edema. Electronically signed by: Kemal Anne M.D. 10/13/2018 7:06 AM ECG Additional Comments: EKG performed at 0755 reviewed and demonstrated sinus rhythm with PACs, non specific ST-T wave abnormalities with inverted T waves in leads 1, aVL. (1) UTI (urinary tract infection) Hematuria presence: without hematuria Urinary tract infection type: site unspecified Qualified Code(s): N39.0 - Urinary tract infection, site not specified (2) Diarrhea Diarrhea type: unspecified type Qualified Code(s): R19.7 - Diarrhea, unspecified
[2018-10-14] MEDS: LACTATED RINGER'S 1,000 ML IV SCH ×2 (04:16→16:51)
[2018-10-14 04:59] LABS: Basophils # (auto) 0.01 K/uL (0-0.2); Basophils % (auto) 0.1 %; Eosinophils % (auto) 1.2 %; Hematocrit (blood only) 29.8 % (37-47); Hemoglobin 9.7 g/dL (12.0-16.0); Immature Granulocytes # (auto) 0.01 K/uL (0.00-0.02); Immature Granulocytes % (auto) 0.1 %; Lymphocytes # (auto) 0.91 K/uL (1.2-3.4); Lymphocytes % (auto) 11.3 %; Mean Corpuscular Hgb Conc 32.6 g/dL (32-36); Mean Corpuscular Volume 86.6 fL (80-100); Mean Platelet Volume 9.6 fL (7.4-10.4); Monocytes # (auto) 0.92 K/uL (0.11-0.59); Monocytes % (auto) 11.4 %; Neutrophils % (auto) 75.9 %; Platelet Count 278 K/uL (130-400); RDW Coefficient of Variation 15.1 % (11.5-14.5); RDW Standard Deviation 48.3 fL (36.4-46.3); Red Blood Count 3.44 M/uL (4.2-5.4); White Blood Count 8.05 K/uL (4.8-10.8)
[2018-10-14 05:07] LABS: Partial Thromboplastin Ratio 1.6; Partial Thromboplastin Time 43.6 Seconds (21.0-31.0)
[2018-10-14 05:15] LABS: Albumin Level 2.6 gm/dl (3.4-5.0); BUN Creatinine Ratio 18.7 (10-20); Calcium 8.5 mg/dl (8.5-10.1); Creatinine Clr Calc Pharmacy 28.9 ml/min; Est GFR (African American) 43.5; Est GFR (Non-African American) 37.5; Magnesium 2.3 mg/dl (1.8-2.4); Potassium 3.8 mmol/L (3.5-5.1)
[2018-10-14 05:18] LABS: Albumin Globulin Ratio 0.7 (0.9-2); Bilirubin,Total 0.3 mg/dl (0.2-1); Globulin 3.6 gm/dl (2.5-4.0); Total Protein 6.2 gm/dl (6.4-8.2)
[2018-10-14] MEDS ORDERED: HEPARIN IV BOLUS 2,000 UNITS in SYRINGE 0 ML IV ONE (05:30)
[2018-10-14] MEDS: LEVOTHYROXINE SODIUM 88 MCG TABLET PO SCH (06:32)
--- NOTE | 2018-10-14 07:17 | XRay Report ---
XR chest 1V portable HISTORY: 77 years-old Female CHF acute shortness of breath with congestive heart failure COMPARISON: Chest radiograph 10/13/2018 TECHNIQUE: Portable AP view of the chest FINDINGS: Cardiac silhouette is mildly enlarged, unchanged. Decreased pulmonary vascular congestion with inters titial coarsening. No pneumothorax or large pleural effusion. Mild right hemidiaphragmatic elevation with minimal persistent bibasilar opacities. 1.2 cm nodular opacity of the right midlung. Degenerativ e changes of the shoulders and spine. IMPRESSION: 1. Cardiomegaly with decreased pulmonary edema. 3. Mild persistent bibasilar opacities favor atelectasis. 3. 1.2 cm nodular opacity of the right midlung is likely secondary to summation density with adjacent anterior right third rib. The above report was generated using voice recognition software. It may contain grammatical, syntax o r spelling errors. Electronically signed by: Dallas Shine M.D. 10/14/2018 7:15 AM
[2018-10-14] MEDS: INSULIN ASPART 100 UNITS/ML 3 ML PEN SC SCH ×4 (08:09→21:22)
[2018-10-14] MEDS: cefTRIAXone SODIUM 1,000 MG in DEXTROSE 5% 50 ML IV SCH (08:12)
[2018-10-14] MEDS: ALLOPURINOL 100 MG TAB PO SCH (08:13)
[2018-10-14] MEDS: METOPROLOL SUCC 25MG EXT REL TAB PO SCH (08:13)
[2018-10-14] MEDS: CHOLECALCIFEROL 1,000 UNITS TAB PO SCH ×2 (08:13→20:25)
[2018-10-14] MEDS: CLOPIDOGREL BISULFATE 75 MG TAB PO SCH (08:13)
[2018-10-14] MEDS: METHYLCELLULOSE POWDER 454 GM JAR PO SCH (08:14)
[2018-10-14] MEDS: ASPIRIN 81 MG ECTAB PO SCH (08:14)
[2018-10-14] MEDS: GABAPENTIN 600 MG TAB PO SCH ×2 (08:42→20:24)
--- NOTE | 2018-10-14 09:16 | Critical Care Progress Note ---
Date of Service October 14, 2018 Assessment & Plan (1) Acute respiratory failure with hypoxemia: Neuro- awake alert CV- HD stable. superventricular tachycardia. responded well to metoprolol. now in sinus. NSTEMI. continue aspirin, clopidogrel, atorvastatin. metoprolol. echo with worsening LV function. optimize volume status. need careful IV fulids Pulmonary- acute hypoxic respiratory failure due to pulmonary edema. improved doing well on NC ID- sepsis with evidence of end organ dysfunction due to e coli UTI and bacteremia. continue ceftriaxone to complete 7 days Renal- acute renal failure likely prerenal/poor perfusion. continue careful fluids GI- diet as tolerated Heme- leukocytosis. heparin for DVT proph Endocrine- blood sugars controlled. 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 MMM. CV: RRR nl s1,s2 no murmurs rubs or gallops Lungs: clear to auscultation bilaterally. no accessory muscle use on RA Abd: soft nontender nondistended. normal bowel sounds Ext: no edema. no cyanosis, no clubbing Skin: warm dry Neuro: awake alert. moving all extremities Psych: normal mood and affect Results & Data Vital Signs (Past 12 Hours) Vital Signs Temp Pulse Resp BP Pulse Ox 10/14/18 06:00 78 22 113/66 96 10/14/18 05:01 75 18 129/75 99 10/14/18 04:00 36.5 C 74 17 118/68 100 10/14/18 03:00 74 19 121/70 96 10/14/18 02:00 77 19 114/62 97 10/14/18 01:00 73 18 114/59 L 97 10/14/18 00:01 36.7 C 77 18 114/92 100 10/14/18 00:00 78 10/13/18 23:00 80 23 108/62 97 10/13/18 22:00 76 22 107/58 L 97
[2018-10-14] MEDS: Heparin Adult LOW DOSE Wt-Based Dextrose 5% 25,000 units/500 mL IV SCH (09:23)
[2018-10-14 12:31] LABS: Partial Thromboplastin Ratio 0.8; Partial Thromboplastin Time 21.3 Seconds (21.0-31.0)
[2018-10-14] MEDS: HEPARIN SOD 5,000 UNIT/0.5 ML VIAL SQ SCH ×2 (13:54→21:17)
--- NOTE | 2018-10-14 20:17 | Hospitalist Progress Note ---
Date of Service October 14, 2018 Assessment & Plan (1) Severe sepsis: Patient presented to the ED with malaise and loose stools. C. difficile PCR was negative. Urinalysis suggested a urinary tract infection. Patient did not meet SIRS criteria in the ED, but was receiving a beta-laurie which could have masked tachycardia and receiving mycophenolate mofetil which could suppress leukocytosis. Urine and blood cultures were obtained and patient was placed on intravenous ceftriaxone. Serum lactate was 2.1, repeat 0.8. Subsequently developed tachycardia, cardiac decompensation, acute kidney injury. Urine culture now growing E. coli and 2 out of 2 blood cultures are growing gram-negative bacilli. Probable severe sepsis secondary to urinary tract infection. Lactate today 1.2. Procalcitonin elevated @ 126. Follow. (2) UTI (urinary tract infection): Urine culture now growing E. coli and 2 out of 2 blood cultures are growing gram-negative bacilli. Continue IV ceftriaxone. (3) Diarrhea: Stool C. difficile PCR negative. Stool culture for routine enteric pathogens negative so far. Patient reports that she has been having diarrhea for several months. Diarrhea could be secondary to medications (e.g., duloxetine or mycophenolate mofetil). Diarrhea is very watery at times, consider vesicoenteric fistula. (4) CHF (congestive heart failure): Known ischemic heart disease with EF of 45 to 50% on 08/03/2018. Developed pulmonary edema the morning of 10/12/2018. Probable acute left ventricular heart failure due to sepsis/tachyarrhythmias. Cardiology consulted. Repeat echocardiogram on 10/12/2018 showed LVEF of 30-35%. Improved with diuresis and control of tachyarrhythmia. Continue metoprolol succinate. No IMMANUEL or ARB at this time due to acute kidney injury. (5) Arrhythmia: Narrow complex tachyarrhythmia morning of 10/12. Did not break initially with intravenous adenosine, but eventually slowed after receiving intravenous metoprolol. Unclear whether patient had SVT, sinus tachycardia, or combination of the 2. Rate now controlled with metoprolol. (6) Elevated troponin: Serum troponin I 0.54 at time of admission and apramjit as high as 6.6. Recent STEMI with PCI's of RCA and left circumflex with drug-eluting stents. Cardiology consulted. [place] most likely the current rise of troponin secondary to demand ischemia from sepsis/arrhythmia rather than a new coronary event. (7) Coronary artery disease: Recent STEMI 08/03/18 with PCI of left circumflex with drug-eluting stent. Elevated troponins as noted above associated with sepsis and tachyarrhythmia. Cardiology consulted. Acute coronary syndrome felt to be unlikely. Continue dual antiplatelet therapy (aspirin and clopidogrel), metoprolol, statin. (8) Acute kidney injury: Serum creatinine at time of admission was 0.54. Creatinine today = 1.35. Acute kidney injury. Possible contributing factors: sepsis, CHF, volume depletion from diuretics and diarrhea. Follow fluid status, labs. (9) Hypokalemia: Serum potassium as low as 3.0. Received IV furosemide yesterday and is also having frequent loose stools. K today = 3.8. Replace, follow. (10) 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: Continue levothyroxine. 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 (12) DVT prophylaxis: Intially received IV heparin due to elevated troponins. Transitioned to SQ unfractionated heparin. Ambulate as able. (13) Discharge planning issues: Anticipated discharge to home. Medical follow-up with Dr. Vanegas. Subjective Recheck for multiple problems. Patient seen in their room around 10:00. Daughter visiting. Feels better. No further dyspnea or arrhythmias. No chest pain. Still has rectal tube and Beckett catheter. Patient indicates that she has been having diarrhea for several months, often watery, usually worse in the morning. Review of Systems: Constitutional- no fever. Cardiac- as noted above. Pulmonary- no cough or SOB. GI- no nausea, vomiting, melena, hematochezia. - Beckett cath Otherwise, as noted above. Physical Exam Constitutional: no acute distress Eyes: + anicteric sclerae Respiratory: no respiratory distress Auscultation: lungs clear to auscultation bilaterally Cardiovascular: Rate/Rhythm: regular rate and regular rhythm Heart Sounds: + murmur (II/ sys murmur at base); no gallop and no cardiac rub Vessels: no JVD Extremities: no calf tenderness and no edema Gastrointestinal (Abdomen): normal bowel sounds, soft, nontender, no hepatosplenomegaly Musculoskeletal: SCD's applied Skin: no rashes, warm and dry Psychiatric: Orientation: alert and oriented x 3 Genitourinary: + bladder abnormality (Beckett cath) Results & Data Vital Signs (Past 12 Hours) Vital Signs Pulse Resp BP Pulse Ox Pulse Ox 10/14/18 16:00 93 10/14/18 15:30 66 19 109/62 10/14/18 15:27 66 22 109/62 10/14/18 15:23 68 22 109/62 10/14/18 15:00 69 22 10/14/18 14:30 70 24 10/14/18 14:19 67 22 109/62 10/14/18 14:17 74 31 H 109/62 10/14/18 14:16 68 24 109/62 10/14/18 14:15 68 22 109/62 10/14/18 14:01 69 23 109/62 10/14/18 14:00 95 H 17 109/62 10/14/18 13:30 75 23 10/14/18 13:00 67 22 10/14/18 12:30 72 21 10/14/18 12:00 72 20 10/14/18 11:30 79 22 10/14/18 11:01 72 29 H 10/14/18 10:59 76 30 H 109/62 10/14/18 10:30 68 23 99 10/14/18 10:00 68 20 97/60 L 100 10/14/18 09:30 76 22 99 10/14/18 09:00 75 21 103/66 99 10/14/18 08:30 72 23 99 Laboratory Results Laboratory Results - last 24 hr 10/13/18 10/13/18 10/14/18 20:11 21:02 04:40 WBC RBC Hgb Hct MCV MCH MCHC RDW Std Deviation RDW Coeff of Danya Plt Count MPV Immature Gran % (Auto) Neut % (Auto) Lymph % (Auto) [place] % (Auto) Eos % (Auto) Baso % (Auto) Immature Gran # (Auto) Neut # (Auto) Lymph # (Auto) [place] # (Auto) Eos # (Auto) Baso # (Auto) APTT 41.5 H 43.6 H PTT Ratio 1.5 1.6 Sodium Potassium Chloride Carbon Dioxide Anion Gap BUN Creatinine Est Cr Clr Drug Dosing Est GFR ( Amer) Est GFR (Non-Af Amer) BUN/Creatinine Ratio Glucose POC Glucose 97 Lactate Calcium Magnesium Total Bilirubin AST ALT Alkaline Phosphatase Total Protein Albumin Globulin Albumin/Globulin Ratio Procalcitonin Urine Osmolality Ur Random Creatinine Urine Sodium Urine Potassium Urine Chloride 10/14/18 10/14/18 10/14/18 04:40 04:40 04:40 WBC 8.05 RBC 3.44 L Hgb 9.7 L Hct 29.8 L MCV 86.6 MCH 28.2 MCHC 32.6 RDW Std Deviation 48.3 H RDW Coeff of Danya 15.1 H Plt Count 278 MPV 9.6 Immature Gran % (Auto) 0.1 Neut % (Auto) 75.9 Lymph % (Auto) 11.3 [place] % (Auto) 11.4 Eos % (Auto) 1.2 Baso % (Auto) 0.1 Immature Gran # (Auto) 0.01 Neut # (Auto) 6.10 Lymph # (Auto) 0.91 L [place] # (Auto) 0.92 H Eos # (Auto) 0.10 Baso # (Auto) 0.01 APTT PTT Ratio Sodium 137 Potassium 3.8 Chloride 111 H Carbon Dioxide 17 L Anion Gap 9.0 BUN 25 H Creatinine 1.35 H Est Cr Clr Drug Dosing 28.9 Est GFR ( Amer) 43.5 Est GFR (Non-Af Amer) 37.5 BUN/Creatinine Ratio 18.7 Glucose 94 POC Glucose Lactate 1.2 Calcium 8.5 Magnesium 2.3 Total Bilirubin 0.3 AST 136 H ALT 126 H Alkaline Phosphatase 87 Total Protein 6.2 L Albumin 2.6 L Globulin 3.6 Albumin/Globulin Ratio 0.7 L Procalcitonin Urine Osmolality Ur Random Creatinine Urine Sodium Urine Potassium Urine Chloride 10/14/18 10/14/18 10/14/18 04:40 07:30 11:30 WBC RBC Hgb Hct MCV MCH MCHC RDW Std Deviation RDW Coeff of Danya Plt Count MPV Immature Gran % (Auto) Neut % (Auto) Lymph % (Auto) [place] % (Auto) Eos % (Auto) Baso % (Auto) Immature Gran # (Auto) Neut # (Auto) Lymph # (Auto) [place] # (Auto) Eos # (Auto) Baso # (Auto) APTT PTT Ratio Sodium Potassium Chloride Carbon Dioxide Anion Gap BUN Creatinine Est Cr Clr Drug Dosing Est GFR ( Amer) Est GFR (Non-Af Amer) BUN/Creatinine Ratio Glucose POC Glucose 93 142 H Lactate Calcium Magnesium Total Bilirubin AST ALT Alkaline Phosphatase Total Protein Albumin Globulin Albumin/Globulin Ratio Procalcitonin 126.23 H Urine Osmolality Ur Random Creatinine Urine Sodium Urine Potassium Urine Chloride 10/14/18 10/14/18 10/14/18 12:08 16:16 Unknown WBC RBC Hgb Hct MCV MCH MCHC RDW Std Deviation RDW Coeff of Danya Plt Count MPV Immature Gran % (Auto) Neut % (Auto) Lymph % (Auto) [place] % (Auto) Eos % (Auto) Baso % (Auto) Immature Gran # (Auto) Neut # (Auto) Lymph # (Auto) [place] # (Auto) Eos # (Auto) Baso # (Auto) APTT 21.3 PTT Ratio 0.8 Sodium Potassium Chloride Carbon Dioxide Anion Gap BUN Creatinine Est Cr Clr Drug Dosing Est GFR ( Amer) Est GFR (Non-Af Amer) BUN/Creatinine Ratio Glucose POC Glucose 91 Lactate Calcium Magnesium Total Bilirubin AST ALT Alkaline Phosphatase Total Protein Albumin Globulin Albumin/Globulin Ratio Procalcitonin Urine Osmolality Ur Random Creatinine 40.1 Urine Sodium Urine Potassium Urine Chloride 10/14/18 10/14/18 Unknown Unknown WBC RBC Hgb Hct MCV MCH MCHC RDW Std Deviation RDW Coeff of Danya Plt Count MPV Immature Gran % (Auto) Neut % (Auto) Lymph % (Auto) [place] % (Auto) Eos % (Auto) Baso % (Auto) Immature Gran # (Auto) Neut # (Auto) Lymph # (Auto) [place] # (Auto) Eos # (Auto) Baso # (Auto) APTT PTT Ratio Sodium Potassium Chloride Carbon Dioxide Anion Gap BUN Creatinine Est Cr Clr Drug Dosing Est GFR ( Amer) Est GFR (Non-Af Amer) BUN/Creatinine Ratio Glucose POC Glucose Lactate Calcium Magnesium Total Bilirubin AST ALT Alkaline Phosphatase Total Protein Albumin Globulin Albumin/Globulin Ratio Procalcitonin Urine Osmolality 266 L Ur Random Creatinine Urine Sodium 39 Urine Potassium 17.5 Urine Chloride 47 Diagnostic Findings PORTABLE CHEST X-RAY IMPRESSION: 1. Cardiomegaly with decreased pulmonary edema. 3. Mild persistent bibasilar opacities favor atelectasis. 3. 1.2 cm nodular opacity of the right midlung is likely secondary to summation density with adjacent anterior right third rib. The above report was generated using voice recognition software. It may contain grammatical, syntax or spelling errors. Electronically signed by: Dallas Shine M.D. 10/14/2018 7:15 AM (1) UTI (urinary tract infection) Hematuria presence: without hematuria Urinary tract infection type: site unspecified Qualified Code(s): N39.0 - Urinary tract infection, site not specified (2) Diarrhea Diarrhea type: unspecified type Qualified Code(s): R19.7 - Diarrhea, unspecified
[2018-10-14] MEDS: ATORVASTATIN 40 MG TAB PO SCH (20:24)
[2018-10-14] MEDS: DULOXETINE HCL 30 MG CAP PO SCH (20:24)
[2018-10-15] MEDS: LACTATED RINGER'S 1,000 ML IV SCH ×2 (06:17→20:20)
[2018-10-15] MEDS: HEPARIN SOD 5,000 UNIT/0.5 ML VIAL SQ SCH ×3 (06:20→21:46)
[2018-10-15] MEDS: LEVOTHYROXINE SODIUM 88 MCG TABLET PO SCH (06:21)
[2018-10-15 06:38] LABS: BUN Creatinine Ratio 17.2 (10-20); Calcium 8.7 mg/dl (8.5-10.1); Creatinine Clr Calc Pharmacy 37.8 ml/min; Est GFR (African American) 58.9; Est GFR (Non-African American) 50.8; Magnesium 1.8 mg/dl (1.8-2.4); Potassium 3.7 mmol/L (3.5-5.1)
[2018-10-15] MEDS: INSULIN ASPART 100 UNITS/ML 3 ML PEN SC SCH ×4 (07:52→21:46)
[2018-10-15] MEDS: METOPROLOL SUCC 25MG EXT REL TAB PO SCH (07:55)
[2018-10-15] MEDS: CHOLECALCIFEROL 1,000 UNITS TAB PO SCH ×2 (07:55→21:46)
[2018-10-15] MEDS: CLOPIDOGREL BISULFATE 75 MG TAB PO SCH (07:55)
[2018-10-15] MEDS: ASPIRIN 81 MG ECTAB PO SCH (07:55)
[2018-10-15] MEDS: GABAPENTIN 600 MG TAB PO SCH ×2 (07:55→20:21)
[2018-10-15] MEDS: ALLOPURINOL 100 MG TAB PO SCH (07:56)
[2018-10-15] MEDS: cefTRIAXone SODIUM 1,000 MG in DEXTROSE 5% 50 ML IV SCH (09:15)
--- NOTE | 2018-10-15 11:44 | CT Scan Report ---
CT of the pelvis without contrast CLINICAL HISTORY: diarrhea, r/o vesicoenteric fistula COMPARISON STUDY: No previous studies for comparison. TECHNIQUE: Axial images of the pelvis were obtained without IV or oral contrast. Automated exposure c ontrol was utilized for the study. A dose lowering technique was utilized adhering to the principles of ALARA. FINDINGS: No vesicoenteric fistula is identified. A Beckett balloon and gas within the bladder are note d. There is mild bladder wall thickening. No fluid collection within the pelvis to suggest an abscess is noted. The appendix is normal. Caliber of visualized small and large bowel are normal. There is n o pelvic lymphadenopathy. Note is made of sigmoid diverticulosis without evidence for acute diverticu litis. There is trace fluid within the pelvis. IMPRESSION: 1. No vesicoenteric fistula. 2. Trace pelvic ascites. 3. Mild bladder wall thickening. Electronically signed by: Kemal Anne M.D. 10/15/2018 11:43 AM
[2018-10-15] MEDS: DULOXETINE HCL 30 MG CAP PO SCH (20:20)
[2018-10-15] MEDS: ATORVASTATIN 40 MG TAB PO SCH (20:21)
--- NOTE | 2018-10-15 21:16 | Hospitalist Progress Note ---
Date of Service October 15, 2018 Assessment & Plan (1) Severe sepsis: Patient presented to the ED with malaise and loose stools. C. difficile PCR was negative. Urinalysis suggested a urinary tract infection. Patient did not meet SIRS criteria in the ED, but was receiving a beta-laurie which could have masked tachycardia and receiving mycophenolate mofetil which could suppress leukocytosis. Urine and blood cultures were obtained and patient was placed on intravenous ceftriaxone. Serum lactate was 2.1, repeat 0.8. Subsequently developed tachycardia, cardiac decompensation, acute kidney injury. Urine culture now growing E. coli and 2 out of 2 blood cultures are growing gram-negative bacilli. Probable severe sepsis secondary to urinary tract infection. Lactate today 1.2. Procalcitonin 126 on 10/14, 38 today. (2) UTI (urinary tract infection): Urine culture and 2/2 blood cultures grew E. coli. Continue IV ceftriaxone. (3) Diarrhea: Stool C. difficile PCR negative. Stool culture for routine enteric pathogens negative so far. Patient reports that she has been having diarrhea for several months. Diarrhea could be secondary to medications (e.g., duloxetine or mycophenolate mofetil). Diarrhea is very watery at times, consider vesicoenteric fistula. Holding mycophenolate mofetil. Duloxetine dose decreased to [address] pelvis to rule out vesicoenteric fistula. (4) CHF (congestive heart failure): Known ischemic heart disease with EF of 45 to 50% on 08/03/2018. Developed pulmonary edema the morning of 10/12/2018. Probable acute left ventricular heart failure due to sepsis/tachyarrhythmias. Cardiology consulted. Repeat echocardiogram on 10/12/2018 showed LVEF of 30-35%. Improved with diuresis and control of tachyarrhythmia. Continue metoprolol succinate. No IMMANUEL or ARB at this time due to acute kidney injury. (5) Arrhythmia: Narrow complex tachyarrhythmia morning of 10/12. Did not break initially with intravenous adenosine, but eventually slowed after receiving intravenous metoprolol. Unclear whether patient had SVT, sinus tachycardia, or combination of the 2. Rate now controlled with metoprolol. (6) Elevated troponin: Serum troponin I 0.54 at time of admission and paramjit as high as 6.6. Recent STEMI with PCI's of RCA and left circumflex with drug-eluting stents. Cardiology consulted. [place] most likely the current rise of troponin secondary to demand ischemia from sepsis/arrhythmia rather than a new coronary event. (7) Coronary artery disease: Recent STEMI 08/03/18 with PCI of left circumflex with drug-eluting stent. Elevated troponins as noted above associated with sepsis and tachyarrhythmia. Cardiology consulted. Acute coronary syndrome felt to be unlikely. Continue dual antiplatelet therapy (aspirin and clopidogrel), metoprolol, statin. (8) Acute kidney injury: Serum creatinine at time of admission was 0.54 and paramjit as high as 1.35. Acute kidney injury. Possible contributing factors: sepsis, CHF, volume depletion from diuretics and diarrhea. Creatinine today = 1.05. Follow fluid status, labs. (9) Hypokalemia: Serum potassium as low as 3.0. Received IV furosemide yesterday and is also having frequent loose stools. K today = 3.7. Replace, follow. (10) 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: Continue levothyroxine. 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 (12) DVT prophylaxis: Initially received IV heparin due to elevated troponins. Transitioned to SQ unfractionated heparin. Ambulate as able. (13) Discharge planning issues: Anticipated discharge to home. Medical follow-up with Dr. Vanegas. Subjective Recheck for multiple problems. Patient seen in their room around 11:00. Feels better. No chest pain or SOB. Still having loose stools. Still has Beckett catheter. Review of Systems: Constitutional- no fever. Cardiac- as noted above. Pulmonary- no cough or SOB. GI- no nausea, vomiting, melena, hematochezia. - Beckett cath Otherwise, as noted above. Physical Exam Constitutional: no acute distress Eyes: + anicteric sclerae Respiratory: no respiratory distress Auscultation: lungs clear to auscultation bilaterally Cardiovascular: Rate/Rhythm: regular rate and regular rhythm Heart Sounds: + murmur (II/ sys murmur at base); no gallop and no cardiac rub Vessels: no JVD Extremities: no calf tenderness and no edema Gastrointestinal (Abdomen): normal bowel sounds, soft, nontender, no hepatosplenomegaly Skin: no rashes, warm and dry Psychiatric: Orientation: alert and oriented x 3 Genitourinary: + bladder abnormality (Beckett cath) Results & Data Vital Signs (Past 12 Hours) Vital Signs Temp Pulse Pulse Resp BP BP Pulse Ox 10/15/18 19:35 36.6 C 74 23 131/73 94 10/15/18 15:35 36.7 C 68 21 121/70 99 10/15/18 14:20 67 10/15/18 11:32 98 10/15/18 10:51 36.6 C 62 18 110/70 98 Laboratory Results Laboratory Results - last 24 hr 10/15/18 10/15/18 10/15/18 05:24 05:24 07:22 Sodium 139 Potassium 3.7 Chloride 112 H Carbon Dioxide 18 L Anion Gap 9.0 BUN 18 Creatinine 1.05 Est Cr Clr Drug Dosing 37.8 Est GFR ( Amer) 58.9 Est GFR (Non-Af Amer) 50.8 BUN/Creatinine Ratio 17.2 Glucose 89 POC Glucose 88 Calcium 8.7 Magnesium 1.8 Procalcitonin 38.35 H Stl Cryptosporidium Ag Giardia Antigen 10/15/18 10/15/18 10/15/18 11:18 16:20 16:36 Sodium Potassium Chloride Carbon Dioxide Anion Gap BUN Creatinine Est Cr Clr Drug Dosing Est GFR ( Amer) Est GFR (Non-Af Amer) BUN/Creatinine Ratio Glucose POC Glucose 98 99 Calcium Magnesium Procalcitonin Stl Cryptosporidium Ag Pending Giardia Antigen Pending 10/15/18 20:27 Sodium Potassium Chloride Carbon Dioxide Anion Gap BUN Creatinine Est Cr Clr Drug Dosing Est GFR ( Amer) Est GFR (Non-Af Amer) BUN/Creatinine Ratio Glucose POC Glucose 96 Calcium Magnesium Procalcitonin Stl Cryptosporidium Ag Giardia Antigen (1) UTI (urinary tract infection) Hematuria presence: without hematuria Urinary tract infection type: site unspecified Qualified Code(s): N39.0 - Urinary tract infection, site not specified (2) Diarrhea Diarrhea type: unspecified type Qualified Code(s): R19.7 - Diarrhea, unspecified
[2018-10-16] MEDS: HEPARIN SOD 5,000 UNIT/0.5 ML VIAL SQ SCH ×3 (05:30→19:37)
[2018-10-16] MEDS: LEVOTHYROXINE SODIUM 88 MCG TABLET PO SCH (05:30)
[2018-10-16 05:33] LABS: Hemoglobin 9.1 g/dL (12.0-16.0); Mean Corpuscular Hgb Conc 32.5 g/dL (32-36); Mean Corpuscular Volume 85.6 fL (80-100); Mean Platelet Volume 9.8 fL (7.4-10.4); Platelet Count 271 K/uL (130-400); RDW Coefficient of Variation 14.8 % (11.5-14.5); RDW Standard Deviation 46.3 fL (36.4-46.3); Red Blood Count 3.27 M/uL (4.2-5.4); White Blood Count 6.35 K/uL (4.8-10.8)
[2018-10-16 06:02] LABS: BUN Creatinine Ratio 16.9 (10-20); Calcium 8.8 mg/dl (8.5-10.1); Creatinine Clr Calc Pharmacy 47.6 ml/min; Est GFR (African American) 78.3; Est GFR (Non-African American) 67.5; Magnesium 1.6 mg/dl (1.8-2.4); Potassium 3.4 mmol/L (3.5-5.1)
[2018-10-16] MEDS ORDERED: MAGNESIUM SULFATE / D5W 1 GM/100 ML BAG IV ONE (06:30)
[2018-10-16] MEDS ORDERED: POTASSIUM CHLORIDE 20 MEQ TABCR PO ONE (06:30)
[2018-10-16] MEDS: cefTRIAXone SODIUM 1,000 MG in DEXTROSE 5% 50 ML IV SCH (08:08)
[2018-10-16] MEDS: INSULIN ASPART 100 UNITS/ML 3 ML PEN SC SCH ×4 (08:08→20:39)
[2018-10-16] MEDS: POTASSIUM CHLORIDE 20 MEQ TABCR PO SCH ×2 (08:08→19:38)
[2018-10-16] MEDS: MAGNESIUM CHLORIDE 64MG DELAYED REL TAB PO SCH ×2 (08:08→19:38)
[2018-10-16] MEDS: ASPIRIN 81 MG ECTAB PO SCH (08:09)
[2018-10-16] MEDS: GABAPENTIN 600 MG TAB PO SCH ×2 (08:09→19:37)
[2018-10-16] MEDS: ALLOPURINOL 100 MG TAB PO SCH (08:09)
[2018-10-16] MEDS: CLOPIDOGREL BISULFATE 75 MG TAB PO SCH (08:09)
[2018-10-16] MEDS: METOPROLOL SUCC 25MG EXT REL TAB PO SCH (08:09)
[2018-10-16] MEDS: CHOLECALCIFEROL 1,000 UNITS TAB PO SCH ×2 (08:09→19:39)
[2018-10-16] MEDS: LACTATED RINGER'S 1,000 ML IV SCH ×2 (10:06→22:49)
--- NOTE | 2018-10-16 18:43 | Hospitalist Progress Note ---
Date of Service October 16, 2018 Assessment & Plan (1) Severe sepsis: Patient presented to the ED with malaise and loose stools. C. difficile PCR was negative. Urinalysis suggested a urinary tract infection. Patient did not meet SIRS criteria in the ED, but was receiving a beta-laurie which could have masked tachycardia and receiving mycophenolate mofetil which could suppress leukocytosis. Urine and blood cultures were obtained and patient was placed on intravenous ceftriaxone. Serum lactate was 2.1, repeat 0.8. Subsequently developed tachycardia, cardiac decompensation, acute kidney injury. Urine culture now growing E. coli and 2 out of 2 blood cultures are growing gram-negative bacilli. Probable severe sepsis secondary to urinary tract infection. Lactate today 1.2. Procalcitonin 126 on 10/14, 38 10/15, 17.9 today. (2) UTI (urinary tract infection): Urine culture and 2/2 blood cultures grew E. coli. Continue IV ceftriaxone. (3) Diarrhea: Stool C. difficile PCR negative. Stool culture for routine enteric pathogens negative so far. Patient reports that she has been having diarrhea for several months. Diarrhea could be secondary to medications (e.g., duloxetine or mycophenolate mofetil). Diarrhea is very watery at times, consider vesicoenteric fistula. Holding mycophenolate mofetil. Duloxetine dose decreased to [address] pelvis negative for vesicoenteric fistula. (4) CHF (congestive heart failure): Known ischemic heart disease with EF of 45 to 50% on 08/03/2018. Developed pulmonary edema the morning of 10/12/2018. Probable acute left ventricular heart failure due to sepsis/tachyarrhythmias. Cardiology consulted. Repeat echocardiogram on 10/12/2018 showed LVEF of 30-35%. Improved with diuresis and control of tachyarrhythmia. Continue metoprolol succinate. No IMMANUEL or ARB at this time due to acute kidney injury. (5) Arrhythmia: Narrow complex tachyarrhythmia morning of 10/12. Did not break initially with intravenous adenosine, but eventually slowed after receiving intravenous metoprolol. Unclear whether patient had SVT, sinus tachycardia, or combination of the 2. 5 beat run of nonsustained VT this morning. Continue cardiac monitoring. Continue metoprolol. (6) Elevated troponin: Serum troponin I 0.54 at time of admission and paramjit as high as 6.6. Recent STEMI with PCI's of RCA and left circumflex with drug-eluting stents. Cardiology consulted. [place] most likely the current rise of troponin secondary to demand ischemia from sepsis/arrhythmia rather than a new coronary event. (7) Coronary artery disease: Recent STEMI 08/03/18 with PCI of left circumflex with drug-eluting stent. Elevated troponins as noted above associated with sepsis and tachyarrhythmia. Cardiology consulted. Acute coronary syndrome felt to be unlikely. Continue dual antiplatelet therapy (aspirin and clopidogrel), metoprolol, statin. (8) Acute kidney injury: Serum creatinine at time of admission was 0.54 and paramjit as high as 1.35. Acute kidney injury. Possible contributing factors: sepsis, CHF, volume depletion from diuretics and diarrhea. Creatinine today = 0.83. Follow fluid status, labs. (9) Hypokalemia: Serum potassium as low as 3.0. Received IV furosemide yesterday and is also having frequent loose stools. K today = 3.4. Replace, follow. (10) 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: Continue levothyroxine. 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 (12) DVT prophylaxis: Initially received IV heparin due to elevated troponins. Transitioned to SQ unfractionated heparin. Ambulate as able. (13) Discharge planning issues: Skilled care or rehab recommended by OT, but pt declines. Anticipated discharge to home with services. Medical follow-up with Dr. Vanegas. Subjective Recheck for multiple problems. Patient seen in their room around 11:30. Daughters visiting. Feels better. No chest pain or SOB. Still having loose stools. PT & OT evals done yesterday. OT recommends skilled care or rehab. Patient made it quite clear that she is not interested in skilled care or rehab and will be returning home. Review of Systems: Constitutional- no fever. Cardiac- as noted above. Pulmonary- no cough or SOB. GI- no nausea, vomiting, melena, hematochezia. - Beckett cath removed; voiding without difficulty Otherwise, as noted above. Physical Exam Constitutional: no acute distress Eyes: + anicteric sclerae Respiratory: no respiratory distress Auscultation: lungs clear to auscultation bilaterally Cardiovascular: Rate/Rhythm: regular rate and regular rhythm Heart Sounds: + murmur (II/ sys murmur at base); no gallop and no cardiac rub Vessels: no JVD Extremities: no calf tenderness and no edema Gastrointestinal (Abdomen): normal bowel sounds, soft, nontender, no hepatosplenomegaly Skin: no rashes, warm and dry Psychiatric: Orientation: alert and oriented x 3 Results & Data Vital Signs (Past 12 Hours) Vital Signs Temp Pulse Pulse Resp BP BP Pulse Ox 10/16/18 15:39 36.7 C 70 20 119/80 92 10/16/18 11:25 36.4 C L 67 17 137/82 98 10/16/18 10:12 63 10/16/18 08:00 37.0 C 65 19 137/81 98 (1) UTI (urinary tract infection) Hematuria presence: without hematuria Urinary tract infection type: site unspecified Qualified Code(s): N39.0 - Urinary tract infection, site not specified (2) Diarrhea Diarrhea type: unspecified type Qualified Code(s): R19.7 - Diarrhea, unspecified
[2018-10-16] MEDS: DULOXETINE HCL 30 MG CAP PO SCH (19:38)
[2018-10-16] MEDS: ATORVASTATIN 40 MG TAB PO SCH (19:39)
[2018-10-17] MEDS: LEVOTHYROXINE SODIUM 88 MCG TABLET PO SCH (05:57)
[2018-10-17] MEDS: HEPARIN SOD 5,000 UNIT/0.5 ML VIAL SQ SCH ×3 (05:57→22:21)
[2018-10-17 06:22] LABS: Hematocrit (blood only) 27.3 % (37-47); Hemoglobin 8.8 g/dL (12.0-16.0); Mean Corpuscular Hgb Conc 32.2 g/dL (32-36); Mean Corpuscular Volume 88.3 fL (80-100); Platelet Count 298 K/uL (130-400); RDW Coefficient of Variation 15.2 % (11.5-14.5); RDW Standard Deviation 49.2 fL (36.4-46.3); Red Blood Count 3.09 M/uL (4.2-5.4); White Blood Count 5.94 K/uL (4.8-10.8)
[2018-10-17 06:59] LABS: BUN Creatinine Ratio 15.8 (10-20); Calcium 8.7 mg/dl (8.5-10.1); Creatinine Clr Calc Pharmacy 47.9 ml/min; Est GFR (African American) 80.6; Est GFR (Non-African American) 69.6; Magnesium 1.8 mg/dl (1.8-2.4); Potassium 4.2 mmol/L (3.5-5.1)
[2018-10-17] MEDS: INSULIN ASPART 100 UNITS/ML 3 ML PEN SC SCH ×4 (09:12→20:24)
[2018-10-17] MEDS: METOPROLOL SUCC 25MG EXT REL TAB PO SCH (09:13)
[2018-10-17] MEDS: GABAPENTIN 600 MG TAB PO SCH (09:13)
[2018-10-17] MEDS: CLOPIDOGREL BISULFATE 75 MG TAB PO SCH (09:13)
[2018-10-17] MEDS: CHOLECALCIFEROL 1,000 UNITS TAB PO SCH ×2 (09:13→20:22)
[2018-10-17] MEDS: POTASSIUM CHLORIDE 20 MEQ TABCR PO SCH (09:14)
[2018-10-17] MEDS: MAGNESIUM CHLORIDE 64MG DELAYED REL TAB PO SCH ×2 (09:14→20:21)
[2018-10-17] MEDS: ALLOPURINOL 100 MG TAB PO SCH (09:14)
[2018-10-17] MEDS: ASPIRIN 81 MG ECTAB PO SCH (09:15)
[2018-10-17] MEDS: cefTRIAXone SODIUM 1,000 MG in DEXTROSE 5% 50 ML IV SCH (09:17)
[2018-10-17] MEDS ORDERED: IOVERSOL 100ml IV PRN (13:27)
--- NOTE | 2018-10-17 14:05 | CT Scan Report ---
CHEST CT WITH CONTRAST; CT ABDOMEN AND PELVIS WITH IV CONTRAST ONLY CT DOSE: 493.18 mGy.cm HISTORY: Acute weight loss weight loss TECHNIQUE: Multiaxial CT images of the chest, abdomen and pelvis were performed following the intrave nous administration of contrast. A dose lowering technique was utilized adhering to the principles o f ALARA. COMPARISON: CT pelvis 10/15/2018, chest radiograph or 2019. FINDINGS: CT CHEST: No focal thyroid nodule. Prominent and mildly enlarged paratracheal, AP window, subcarinal and hilar lymph nodes are seen measuring up to 10 mm in short axis. Moderate cardiomegaly without pericardial e ffusion. Coronary arterial calcifications are noted. Thoracic aorta is normal in both course and kierra shady without aneurysm or dissection. Mixed plaque formation of the thoracic aortic arch and proximal g reat vessels. Calcified plaque of the carotid bulbs, partially imaged. The opacified pulmonary arteri al tree appears unremarkable. Small layering bilateral pleural effusions with dependent subsegmental bibasilar consolidation. There is no pneumothorax. There is mild intralobular septal thickening about the lung bases. Moderate bila teral bronchial wall thickening. There are no suspicious pulmonary nodules or masses identified. Cent ral airways appear to be patent. Soft tissues and breast parenchyma are within normal limits. Degener ative changes of the shoulders and spine. There are no suspicious lytic or blastic bony lesions. CT ABDOMEN/PELVIS: No pneumatosis or pneumoperitoneum. Spleen measures the upper limits of normal at 12.8 cm. Partial d istention of the gallbladder with mild nonspecific pericholecystic edema, there is no pancreatic duct al dilation identified. Equivocal cholelithiasis noted about the gallbladder fundus. Common bile duct measures 7 mm transversely, within normal limits for patient age. No significant intrahepatic biliar y ductal dilation. Pancreas and adrenal glands appear unremarkable. Liver appears to be within normal limits. Mild periportal edema. 1.4 cm cyst of the inferior pole right kidney. No renal or ureteral calculi or obstructive uropathy. Urinary bladder wall thickening with perivesicular stranding. This structure. Trace free pelvic fluid . No adnexal mass lesions. Moderate mixed plaque formation of the aorta without aneurysm. No adenopat hy identified. Small hiatal hernia with mild wall thickening of the distal esophagus. No bowel obstru ction. Colonic diverticulosis. 10 mm soft tissue nodule of the left upper quadrant abdomen is suggest wendi of a splenule. Terminal ileum is unremarkable. Normal appendix. There is mild wall thickening not ed throughout the distal sigmoid and rectum. Mild associated pericolonic stranding. Tiny fat filled p eriumbilical hernia. No suspicious bony lesions. Degenerative changes of the spine, pelvis and hips. IMPRESSION: 1. Mild nonspecific mediastinal and hilar adenopathy. 2. Cardiomegaly with small bilateral pleural effusions and mild pulmonary edema. 3. Dependent subsegmental bibasilar consolidation favors atelectasis. 4. No bowel obstruction, pneumatosis or pneumoperitoneum. 5. Mild wall thickening of the distal sigmoid colon and rectum with trace free pelvic fluid and mild pericolonic stranding. Findings are suspicious for a mild nonspecific proctocolitis. 6. Mild wall thickening about the urinary bladder. Correlate with urinalysis. 7. Nonspecific pericholecystic edema with equivocal cholelithiasis. This finding could be correlated with right upper quadrant ultrasound. 8. Additional findings as above. Electronically signed by: Dallas Shine M.D. 10/17/2018 2:03 PM
--- NOTE | 2018-10-17 16:03 | Hospitalist Progress Note ---
Date of Service October 17, 2018 Assessment & Plan (1) Severe sepsis: Patient presented to the ED with malaise and loose stools. C. difficile PCR was negative. Urinalysis suggested a urinary tract infection. Patient did not meet SIRS criteria in the ED, but was receiving a beta-laurie which could have masked tachycardia and receiving mycophenolate mofetil which could suppress leukocytosis. Urine and blood cultures were obtained and patient was placed on intravenous ceftriaxone. Serum lactate was 2.1, repeat 0.8. Subsequently developed tachycardia, cardiac decompensation, acute kidney injury. Urine culture and 2 / 2 blood cultures grew E. coli. Probable severe sepsis secondary to urinary tract infection. Procalcitonin 126 --> --> 9. (2) UTI (urinary tract infection): Urine culture and 2/2 blood cultures grew E. coli. Continue IV ceftriaxone. (3) Diarrhea: Stool C. difficile PCR negative. Stool culture for routine enteric pathogens negative so far. Stool studies for Giardia antigen and cryptosporidia pending. Patient reports that she has been having diarrhea for several months. Diarrhea could be secondary to medications (e.g., duloxetine or mycophenolate mofetil). Diarrhea is very watery at times, considered vesicoenteric fistula but CT negative. Holding mycophenolate mofetil. Duloxetine dose decreased to 30 mg HS. Still having frequent loose stools. Consult GI for their input. (4) CHF (congestive heart failure): Known ischemic heart disease with EF of 45 to 50% on 08/03/2018. Developed pulmonary edema the morning of 10/12/2018. Probable acute left ventricular systolic heart failure due to sepsis/tachyarrhythmias. Cardiology consulted. Repeat echocardiogram on 10/12/2018 showed LVEF of 30-35%. Improved with diuresis and control of tachyarrhythmia. Continue metoprolol succinate. No IMMANUEL or ARB at this time due to acute kidney injury. (5) Arrhythmia: Narrow complex tachyarrhythmia morning of 10/12. Did not break initially with intravenous adenosine, but eventually slowed after receiving intravenous metoprolol. Unclear whether patient had SVT, sinus tachycardia, or combination of the 2. Continue cardiac monitoring. Continue metoprolol. (6) Elevated troponin: Serum troponin I 0.54 at time of admission and paramjit as high as 6.6. Recent STEMI with PCI's of RCA and left circumflex with drug-eluting stents. Cardiology consulted. [place] most likely the current rise of troponin secondary to demand ischemia from sepsis/arrhythmia rather than a new coronary event. (7) Coronary artery disease: Recent STEMI 08/03/18 with PCI of left circumflex with drug-eluting stent. Elevated troponins as noted above associated with sepsis and tachyarrhythmia. Cardiology consulted. Acute coronary syndrome felt to be unlikely. Continue dual antiplatelet therapy (aspirin and clopidogrel), metoprolol, statin. (8) Acute kidney injury: Serum creatinine at time of admission was 0.54 and paramjit as high as 1.35. Acute kidney injury. Possible contributing factors: sepsis, CHF, volume depletion from diuretics and diarrhea. Received IV fluids with improvement. Creatinine today = 0.81. (9) Hypokalemia: Serum potassium as low as 3.0. Having frequent loose stools and received IV furosemide. Received replacement. K today = 4.2. Follow. (10) 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: Continue levothyroxine. 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 (12) Weight loss: 20 lb weight loss over past year. Patient to have CT of chest / abd / pelvis, but it has been postponed because of recent events. Check CT during hospital stay. (13) DVT prophylaxis: Initially received IV heparin due to elevated troponins. Transitioned to SQ unfractionated heparin. Ambulate as able. (14) Discharge planning issues: Skilled care or rehab recommended by OT, but pt declines. Anticipated discharge to home with services. Medical follow-up with Dr. Vanegas. Subjective Recheck for multiple problems. Patient seen in their room around 10:20. Overall, feels better. No chest pain or SOB. Notes some pedal edema. Still having loose stools, but not as frequent. Review of Systems: Constitutional- no fever. Cardiac- as noted above. Pulmonary- no cough or SOB. GI- no nausea, vomiting, melena, hematochezia. - voiding without difficulty Otherwise, as noted above. Physical Exam Constitutional: no acute distress Eyes: + anicteric sclerae Respiratory: no respiratory distress Auscultation: lungs clear to auscultation bilaterally Cardiovascular: Rate/Rhythm: regular rate and regular rhythm Heart Sounds: + murmur (II/ sys murmur at base); no gallop and no cardiac rub Vessels: no JVD Extremities: no calf tenderness and no edema Gastrointestinal (Abdomen): normal bowel sounds, soft, nontender, no hepatosplenomegaly Skin: no rashes, warm and dry Psychiatric: Orientation: alert and oriented x 3 Results & Data Vital Signs (Past 12 Hours) Vital Signs Temp Pulse Resp BP Pulse Ox 10/17/18 15:29 37.2 C 62 18 112/71 97 10/17/18 12:08 36.4 C L 56 L 20 142/91 H 100 10/17/18 07:00 37.1 C 81 18 120/73 93 10/17/18 03:55 36.8 C 79 18 121/71 98 Laboratory Results Laboratory Results - last 24 hr 10/16/18 10/16/18 10/17/18 16:35 20:20 05:40 WBC 5.94 RBC 3.09 L Hgb 8.8 L Hct 27.3 L MCV 88.3 MCH 28.5 MCHC 32.2 RDW Std Deviation 49.2 H RDW Coeff of Danya 15.2 H Plt Count 298 MPV 10.0 Sodium Potassium Chloride Carbon Dioxide Anion Gap BUN Creatinine Est Cr Clr Drug Dosing Est GFR ( Amer) Est GFR (Non-Af Amer) BUN/Creatinine Ratio Glucose POC Glucose 98 92 Calcium Magnesium Procalcitonin 10/17/18 10/17/18 10/17/18 05:40 05:40 07:04 WBC RBC Hgb Hct MCV MCH MCHC RDW Std Deviation RDW Coeff of Danya Plt Count MPV Sodium 142 Potassium 4.2 D Chloride 114 H Carbon Dioxide 20 L Anion Gap 8.0 BUN 13 Creatinine 0.81 Est Cr Clr Drug Dosing 47.9 Est GFR ( Amer) 80.6 Est GFR (Non-Af Amer) 69.6 BUN/Creatinine Ratio 15.8 Glucose 88 POC Glucose 96 Calcium 8.7 Magnesium 1.8 Procalcitonin 8.89 H 10/17/18 11:17 WBC RBC Hgb Hct MCV MCH MCHC RDW Std Deviation RDW Coeff of Danya Plt Count MPV Sodium Potassium Chloride Carbon Dioxide Anion Gap BUN Creatinine Est Cr Clr Drug Dosing Est GFR ( Amer) Est GFR (Non-Af Amer) BUN/Creatinine Ratio Glucose POC Glucose 92 Calcium Magnesium Procalcitonin Microbiology 10/11/18 17:11 Blood Aerobic Blood Culture - Final Escherichia coli 10/11/18 17:11 Blood Anaerobic Blood Culture - Final No growth in Anaerobic bottle after 5 days. 10/11/18 17:25 Blood Aerobic Blood Culture - Final Escherichia coli 10/11/18 17:25 Blood Anaerobic Blood Culture - Final No growth in Anaerobic bottle after 5 days. 10/11/18 19:25 Stool Shiga Toxin Test - Final 10/11/18 19:25 Stool Stool Culture - Final No Salmonella isolated, No Shigella isolated, No Campylobacter jejuni isolated. 10/11/18 18:20 Urine,Straight Cath Urine Culture - Final Escherichia coli (1) UTI (urinary tract infection) Hematuria presence: without hematuria Urinary tract infection type: site unspecified Qualified Code(s): N39.0 - Urinary tract infection, site not specified (2) Diarrhea Diarrhea type: unspecified type Qualified Code(s): R19.7 - Diarrhea, unspecified
[2018-10-17] MEDS: DULOXETINE HCL 30 MG CAP PO SCH (20:21)
[2018-10-17] MEDS: ATORVASTATIN 40 MG TAB PO SCH (20:22)
[2018-10-17] MEDS: POTASSIUM CHLORIDE 10 MEQ TABCR PO SCH (20:23)
[2018-10-17] MEDS: GABAPENTIN 300 MG CAP PO SCH (20:23)
[2018-10-18] MEDS: HEPARIN SOD 5,000 UNIT/0.5 ML VIAL SQ SCH ×3 (05:50→21:05)
[2018-10-18] MEDS: LEVOTHYROXINE SODIUM 88 MCG TABLET PO SCH (05:50)
[2018-10-18 06:11] LABS: Hemoglobin 9.3 g/dL (12.0-16.0); Mean Corpuscular Hgb Conc 32.1 g/dL (32-36); Mean Corpuscular Volume 87.3 fL (80-100); Mean Platelet Volume 9.7 fL (7.4-10.4); Platelet Count 319 K/uL (130-400); RDW Coefficient of Variation 15.3 % (11.5-14.5); RDW Standard Deviation 48.6 fL (36.4-46.3); Red Blood Count 3.32 M/uL (4.2-5.4); White Blood Count 6.19 K/uL (4.8-10.8)
[2018-10-18 06:37] LABS: BUN Creatinine Ratio 10.2 (10-20); Calcium 8.7 mg/dl (8.5-10.1); Creatinine Clr Calc Pharmacy 44.2 ml/min; Est GFR (African American) 69.1; Est GFR (Non-African American) 59.6; Potassium 4.3 mmol/L (3.5-5.1)
[2018-10-18] MEDS: INSULIN ASPART 100 UNITS/ML 3 ML PEN SC SCH ×4 (08:04→20:50)
[2018-10-18] MEDS: CLOPIDOGREL BISULFATE 75 MG TAB PO SCH (08:06)
[2018-10-18] MEDS: ASPIRIN 81 MG ECTAB PO SCH (08:06)
[2018-10-18] MEDS: CHOLECALCIFEROL 1,000 UNITS TAB PO SCH ×2 (08:06→21:04)
[2018-10-18] MEDS: MAGNESIUM CHLORIDE 64MG DELAYED REL TAB PO SCH ×2 (08:06→21:03)
[2018-10-18] MEDS: ALLOPURINOL 100 MG TAB PO SCH (08:06)
[2018-10-18] MEDS: METOPROLOL SUCC 25MG EXT REL TAB PO SCH (08:07)
[2018-10-18] MEDS: POTASSIUM CHLORIDE 10 MEQ TABCR PO SCH (08:07)
[2018-10-18] MEDS: GABAPENTIN 300 MG CAP PO SCH ×2 (08:07→21:03)
--- NOTE | 2018-10-18 09:33 | Cardiology Progress Note ---
Date of Service October 18, 2018 Assessment & Plan (1) Cardiomyopathy: 2. Multivessel CAD 3. SVT 4. Elevated troponin/demand ischemia 5. Weakness/Diarrhea 6. UTI 7. Inclusion body myositis. 8. Anemia 9. Resolved CEDRIC Looks well. Hemodynamically and electrically stable. No recurrent SVT Well perfused, no significant congestion on exam. -- continue DAPT with ASA/clopidogrel. -- continue toprol XL. -- would start low dose ARB -- continue statin. Follow-up with cardiology in 3-4 weeks on discharge Subjective Feeling well today. No recurrent chest pain. No significant shortness of breath. Feels diarrhea somewhat improved. Only complaint is burning discomfort in legs. Telemetry -- no significant arrhythmia Review of Systems Review of Systems: All systems reviewed & are unremarkable except as noted in HPI & below Physical Exam Physical Exam: General: Comfortable, no acute distress HEENT: Sclerae anicteric, mucous membranes moist Lungs: Clear to auscultation bilaterally, no rhonchi or wheezes Cardiac: Regular rate and rhythm, no murmurs. No JVD. Abdomen: Soft, nontender, nondistended, positive bowel sounds. Extremities: Warm, well perfused, no edema. 2+ radial pulses Skin: No rashes or lesions. Neuro: Nonfocal Psych: Alert orient x3, normal affect and mood Results & Data Vital Signs (Past 12 Hours) Vital Signs Temp Pulse Pulse Resp BP BP Pulse Ox 10/18/18 07:03 37.3 C 76 18 127/68 97 10/18/18 04:22 37.6 C H 78 18 140/76 98 10/18/18 00:28 68 10/17/18 23:45 37.0 C 71 17 125/67 96
--- NOTE | 2018-10-18 12:18 | Gastrointestinal Consultation ---
Date of Consultation October 18, 2018 Assessment & Plan (1) Diarrhea: Pt is a 77 y/o female w chronic diarrhea, infectious workup negative, CT w signs of mild inflammation on sigmoid colon suspicious for non specific proctocolitis. She was on Cellcept for inclusion body myositis, wonder if she h as opportunistic infection such as CMV colitis. She usually sees [facility], has had colonoscopy within less than 10 yrs. She does report today she feels great, only had 3 loose BMs this AM which is improved than prior - Plan for flex sigmoidscopy today Supervising Physician Co-Signing Physician Notes Attending attestation I have seen, examined this patient, and agree with the findings and above by our mid-level provider Ms.Leonie Hutchins, with the following additions Patient has had 1 year of chronic diarrhea in the morning. However, she said worsening diarrhea over the last week. It seems to improved. She had a colonoscopy less than 10 years ago per her report [facility], given her recent STEMI, will plan to do a flex sig today to look for opportunistic infections given her CellCept usage as well as microscopic colitis, less likely felt to be ulcerative colitis with certainly would be a possibility as well. Further recommendations after flex sig. History of Present Illness Reason for Consultation: Chronic diarrhea Requesting Physician: Dr. Sheldon Borrero Attending Physician: Dr. Ren Ceron History of Present Illness Pt is a 77 y/o female w PMHx of hypothyroidism, gout, CAD, NSTEMI s/p cardiac cath and 2 drug eluting stents in July, inclusion body myositis on Cellcept who is currently being seen for chronic diarrhea which started about 1 yr ago. She reports mostly diarrhea in the morning time then it becomes less frequent by night time. Denies any rectal bleeding, n/v, abd pain. Cdiff and stool cx negative. CT abd/pelvis w/o signs of bowel obstruction, pneumontosis or pneumoperitoneum and mild wall thickening of distal sigmoid colon, rectum w trace free pelvic fluid and mild pericolonic stranding suspicious for non specific proctocolitis. She usually sees [facility], said has had multiple colonoscopy, one less than 10 yrs ago w/o any significant finding such as malignancy. Allergies Allergy/AdvReac Type Severity Reaction Status Date / Time No Known Allergies Allergy Verified 10/11/18 17:23 Home Medications Home Medications Medication Instructions Recorded Confirmed Type Citrucel (sucrose) 1 tbsp PO QAM 08/03/18 10/11/18 History Ivig 1 dose IV MONTHLY 08/03/18 10/11/18 History allopurinol 100 mg PO QAM 08/03/18 10/11/18 History cholecalciferol (vitamin D3) 2,000 unit PO BID 08/03/18 10/11/18 History [Vitamin D3] cyanocobalamin (vitamin B-12) 1,000 mcg IM MONTHLY 08/03/18 10/11/18 History duloxetine [Cymbalta] 60 mg PO HS 08/03/18 10/11/18 History gabapentin [Neurontin] 600 mg PO TID 08/03/18 10/11/18 History levothyroxine 88 mcg PO QAM 08/03/18 10/11/18 History mycophenolate mofetil [CellCept] 1,000 mg PO BID 08/03/18 10/11/18 History Toprol XL 25 mg PO DAILY 10/11/18 10/11/18 History acetaminophen [Tylenol Extra 500 mg PO TID 10/11/18 10/11/18 History Strength] aspirin [Ecotrin Low Strength] 81 mg PO QAM 10/11/18 10/11/18 History atorvastatin 40 mg PO HS 10/11/18 10/11/18 History clopidogrel 75 mg PO QAM 10/11/18 10/11/18 History Patient History Social History Preferred Language: Lithuanian Communication Ability: Effective Comedian Required: No Beliefs That Will Affect Care: None Current Living Situation: Alone Other Information That Helps Us Care for You: No Feels Safe at Home: Yes Safety Concerns: Feels Safe At This Time Smoking Status: Never smoker Do You Dip or Chew Tobacco: No Second Hand Exposure: No Tobacco Cessation Education Requested by Patient: No Hx Alcohol Use: No Hx Substance Use: No Review of Systems Review of Systems: All systems reviewed & are unremarkable except as noted in HPI & below Physical Exam Constitutional: WD/WN, vitals as above well groomed, cooperative and comfortable Eyes: PERRL, conjunctivae normal, anicteric sclerae ENMT: external ear and nose normal, oropharynx normal Respiratory: normal respiratory effort, lungs clear to auscultation Cardiovascular: RRR, no murmur, no edema Gastrointestinal (Abdomen): normal bowel sounds, soft, nontender, no hepatosplenomegaly Skin: no rashes, warm and dry no jaundice Neurologic: Motor/Sensory: no asterixis Psychiatric: A+Ox3, euthymic affect Lymphatic: no lymphedema Results & Data Vital Signs (Past 12 Hours) Vital Signs Laboratory Results - last 72 hr 10/15/18 10/15/18 10/16/18 16:36 20:27 05:10 WBC 6.35 RBC 3.27 L Hgb 9.1 L Hct 28.0 L MCV 85.6 MCH 27.8 MCHC 32.5 RDW Std Deviation 46.3 RDW Coeff of Danya 14.8 H Plt Count 271 MPV 9.8 Sodium Potassium Chloride Carbon Dioxide Anion Gap BUN Creatinine Est Cr Clr Drug Dosing Est GFR ( Amer) Est GFR (Non-Af Amer) BUN/Creatinine Ratio Glucose POC Glucose 99 96 Calcium Magnesium Procalcitonin 10/16/18 10/16/18 10/16/18 05:10 05:10 08:01 WBC RBC Hgb Hct MCV MCH MCHC RDW Std Deviation RDW Coeff of Danya Plt Count MPV Sodium 139 Potassium 3.4 L Chloride 110 H Carbon Dioxide 24 Anion Gap 5.0 BUN 14 Creatinine 0.83 Est Cr Clr Drug Dosing 47.6 Est GFR ( Amer) 78.3 Est GFR (Non-Af Amer) 67.5 BUN/Creatinine Ratio 16.9 Glucose 95 POC Glucose 101 H Calcium 8.8 Magnesium 1.6 L Procalcitonin 17.90 H 10/16/18 10/16/18 10/16/18 11:58 16:35 20:20 WBC RBC Hgb Hct MCV MCH MCHC RDW Std Deviation RDW Coeff of Danya Plt Count MPV Sodium Potassium Chloride Carbon Dioxide Anion Gap BUN Creatinine Est Cr Clr Drug Dosing Est GFR ( Amer) Est GFR (Non-Af Amer) BUN/Creatinine Ratio Glucose POC Glucose 96 98 92 Calcium Magnesium Procalcitonin 10/17/18 10/17/18 10/17/18 05:40 05:40 05:40 WBC 5.94 RBC 3.09 L Hgb 8.8 L Hct 27.3 L MCV 88.3 MCH 28.5 MCHC 32.2 RDW Std Deviation 49.2 H RDW Coeff of Danya 15.2 H Plt Count 298 MPV 10.0 Sodium 142 Potassium 4.2 D Chloride 114 H Carbon Dioxide 20 L Anion Gap 8.0 BUN 13 Creatinine 0.81 Est Cr Clr Drug Dosing 47.9 Est GFR ( Amer) 80.6 Est GFR (Non-Af Amer) 69.6 BUN/Creatinine Ratio 15.8 Glucose 88 POC Glucose Calcium 8.7 Magnesium 1.8 Procalcitonin 8.89 H 10/17/18 10/17/18 10/17/18 07:04 11:17 16:22 WBC RBC Hgb Hct MCV MCH MCHC RDW Std Deviation RDW Coeff of Danya Plt Count MPV Sodium Potassium Chloride Carbon Dioxide Anion Gap BUN Creatinine Est Cr Clr Drug Dosing Est GFR ( Amer) Est GFR (Non-Af Amer) BUN/Creatinine Ratio Glucose POC Glucose 96 92 136 H Calcium Magnesium Procalcitonin 10/17/18 10/18/18 10/18/18 20:02 05:45 05:45 WBC 6.19 RBC 3.32 L Hgb 9.3 L Hct 29.0 L MCV 87.3 MCH 28.0 MCHC 32.1 RDW Std Deviation 48.6 H RDW Coeff of Danya 15.3 H Plt Count 319 MPV 9.7 Sodium 141 Potassium 4.3 Chloride 112 H Carbon Dioxide 21 Anion Gap 8.0 BUN 9 Creatinine 0.92 Est Cr Clr Drug Dosing 44.2 Est GFR ( Amer) 69.1 Est GFR (Non-Af Amer) 59.6 BUN/Creatinine Ratio 10.2 Glucose 96 POC Glucose 112 H Calcium 8.7 Magnesium Procalcitonin 10/18/18 10/18/18 07:14 11:09 WBC RBC Hgb Hct MCV MCH MCHC RDW Std Deviation RDW Coeff of Danya Plt Count MPV Sodium Potassium Chloride Carbon Dioxide Anion Gap BUN Creatinine Est Cr Clr Drug Dosing Est GFR ( Amer) Est GFR (Non-Af Amer) BUN/Creatinine Ratio Glucose POC Glucose 104 H 98 Calcium Magnesium Procalcitonin Temp Pulse Pulse Pulse Resp BP BP 10/18/18 11:21 37.2 C 71 17 106/63 10/18/18 07:03 37.3 C 76 18 127/68 10/18/18 04:22 37.6 C H 78 18 140/76 10/18/18 00:28 68 Pulse Ox 10/18/18 11:21 92 10/18/18 07:03 97 10/18/18 04:22 98 10/18/18 00:28 (1) Diarrhea Diarrhea type: unspecified type Qualified Code(s): R19.7 - Diarrhea, unspecified
--- NOTE | 2018-10-18 13:03 | GI REPORT ---
Patient Name: Diana Chandler Procedure Date: 10/18/2018 12:43 PM Date of : 1940 Admit Type: Inpatient Age: 77 Gender: Female Attending MD: Ren Ceron MD Procedure: Flexible Sigmoidoscopy Providers: Ren Ceron MD Referring MD: Sheldon Borrero Indications: Abnormal CT of the GI tract, Diarrhea Medicines: None Complications: No immediate complications. Estimated Blood Loss: Estimated blood loss: none. Procedure: Pre-Anesthesia Assessment: - Pre-Anesthesia Assessment: - Prior to the procedure, a History and Physical was performed, and patient medications, allergies and sensitivities were reviewed. The patient's tolerance of previous anesthesia was reviewed. Please see NGDATA for complete details. - The risks and benefits of the procedure and the sedation options and risks were discussed with the patient. All questions were answered and informed consent was obtained. - Patient identification and proposed procedure were verified prior to the procedure by the physician and the nurse. The procedure was verified in the pre-procedure area in the procedure room. After obtaining informed consent, the endoscope was passed carefully and meticuously under direct vision and only advanced when the lumen was clearly identified, C02 insuflation was utilized throughout the entirity of the procedure. Throughout the procedure, the patient's blood pressure, pulse, and oxygen saturations were monitored continuously. After obtaining informed consent, the endoscope was passed under direct vision. Throughout the procedure, the patient's blood pressure, pulse, and oxygen saturations were monitored continuously. The Endoscope was introduced through the anus and advanced to the descending colon. The flexible sigmoidoscopy was accomplished without difficulty. The patient tolerated the procedure well. The quality of the bowel preparation was good. Findings: Multiple small-mouthed diverticula were found in the sigmoid colon. No other significant abnormalities were identified in a careful examination of the remainder of the colon. Biopsies for histology were taken with a cold forceps from the rectosigmoid colon for evaluation of microscopic colitis. Impression: - Diverticulosis in the sigmoid colon. - Biopsies were taken with a cold forceps from the rectosigmoid colon for evaluation of microscopic colitis. Recommendation: - Return patient to hospital [facility] for ongoing care. - Use Citrucel one tablespoon PO BID. - Imodium 1 tablet PO PRN after loose bowel movement. - Await pathology results. Ren Ceron MD 10/18/2018 1:02:41 PM This report has been signed electronically. Note Initiated On: 10/18/2018 12:43 PM Number of Addenda: 0 I attest to the content of the Intraoperative Record and orders documented therein, exceptions below {[id number]}
[2018-10-18] MEDS ORDERED: LOPERAMIDE HCL 2 MG CAP PO STA (16:12)
--- NOTE | 2018-10-18 20:07 | Hospitalist Progress Note ---
Date of Service October 18, 2018 Assessment & Plan (1) Severe sepsis: Patient presented to the ED with malaise and loose stools. C. difficile PCR was negative. Urinalysis suggested a urinary tract infection. Patient did not meet SIRS criteria in the ED, but was receiving a beta-laurie which could have masked tachycardia and receiving mycophenolate mofetil which could suppress leukocytosis. Urine and blood cultures were obtained and patient was placed on intravenous ceftriaxone. Serum lactate was 2.1, repeat 0.8. Subsequently developed tachycardia, cardiac decompensation, acute kidney injury. Urine culture and 2 / 2 blood cultures grew E. coli. Probable severe sepsis secondary to urinary tract infection. Procalcitonin 126 --> --> 9. (2) UTI (urinary tract infection): Urine culture and 2/2 blood cultures grew E. coli. No evidence of urinary tract obstruction on CT. Received IV ceftriaxone x 7 days with improvement. Transition to oral therapy with amoxicillin to complete 10 day course of therapy. (3) Diarrhea: Stool C. difficile PCR negative. Stool culture for routine enteric pathogens negative so far. Stool studies for Giardia antigen and cryptosporidia pending. Patient reports that she has been having diarrhea for several months. Diarrhea could be secondary to medications (e.g., duloxetine or mycophenolate mofetil). Diarrhea is very watery at times, considered vesicoenteric fistula but CT negative. Holding mycophenolate mofetil. Duloxetine dose decreased to 30 mg HS. Still having frequent loose stools. CT demonstrated thickening of sigmoid colon. GI consulted. Sigmoidoscopy planned for today. (4) CHF (congestive heart failure): Known ischemic heart disease with EF of 45 to 50% on 08/03/2018. Developed pulmonary edema the morning of 10/12/2018. Probable acute left ventricular systolic heart failure due to sepsis/tachyarrhythmias. Cardiology consulted. Repeat echocardiogram on 10/12/2018 showed LVEF of 30-35%. Improved with diuresis and control of tachyarrhythmia. Continue metoprolol succinate. Start low dose lisinopril per Cardiology. (5) Arrhythmia: Narrow complex tachyarrhythmia morning of 10/12. Did not break initially with intravenous adenosine, but eventually slowed after receiving intravenous metoprolol. Unclear whether patient had SVT, sinus tachycardia, or combination of the 2. Continue cardiac monitoring. Continue metoprolol. (6) Elevated troponin: Serum troponin I 0.54 at time of admission and paramjit as high as 6.6. Recent STEMI with PCI's of RCA and left circumflex with drug-eluting stents. Cardiology consulted. [place] most likely the current rise of troponin secondary to demand ischemia from sepsis/arrhythmia rather than a new coronary event. (7) Coronary artery disease: Recent STEMI 08/03/18 with PCI of left circumflex with drug-eluting stent. Elevated troponins as noted above associated with sepsis and tachyarrhythmia. Cardiology consulted. Acute coronary syndrome felt to be unlikely. Continue dual antiplatelet therapy (aspirin and clopidogrel), metoprolol, statin . (8) Acute kidney injury: Serum creatinine at time of admission was 0.54 and paramjit as high as 1.35. Acute kidney injury. Possible contributing factors: sepsis, CHF, volume depletion from diuretics and diarrhea. Received IV fluids with improvement. Creatinine today = 0.92. (9) Hypokalemia: Serum potassium as low as 3.0. Having frequent loose stools and received IV furosemide. Received replacement. K today = 4.3. Follow. (10) 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: Continue levothyroxine. 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 Sepsis resolved; resume Rx. Receives monthly infusions of IV gammaglobulin. Checked with Pharmacy. IV Ig currently on back order. Should be OK to wait and resume IV Ig after complete of rehab / skilled care. (12) Weight loss: 20 lb weight loss over past year. Patient to have CT of chest / abd / pelvis, but it has been postponed because of recent events. CT did not show any evidence of malignancy. (13) DVT prophylaxis: Initially received IV heparin due to elevated troponins. Transitioned to SQ unfractionated heparin. Ambulate as able. (14) Discharge planning issues: Skilled care or rehab recommended by OT and patient now agreeable. Case Management following. Medical follow-up with Dr. Vanegas. Subjective Recheck for multiple problems. Patient seen in their room around 11:30. Better. No chest pain or SOB. Less pedal edema. Still having loose stools. Needs assistance with transfers. Pt realizes that functional status is not back to baseline and would like to have inpatient rehab or skilled care. Review of Systems: Constitutional- no fever. Cardiac- as noted above. Pulmonary- no cough or SOB. GI- no nausea, vomiting, melena, hematochezia. - voiding without difficulty Otherwise, as noted above. Physical Exam Constitutional: no acute distress Eyes: + anicteric sclerae Respiratory: no respiratory distress Auscultation: lungs clear to auscultation bilaterally Cardiovascular: Rate/Rhythm: regular rate and regular rhythm Heart Sounds: + murmur (II/ sys murmur at base); no gallop and no cardiac rub Vessels: no JVD Extremities: no calf tenderness and no edema Gastrointestinal (Abdomen): normal bowel sounds, soft, nontender, no hepatosplenomegaly Skin: no rashes, warm and dry Psychiatric: Orientation: alert and oriented x 3 Results & Data Vital Signs (Past 12 Hours) Vital Signs Temp Pulse Pulse Resp BP BP Pulse Ox 10/18/18 19:40 36.6 C 82 18 146/75 H 94 10/18/18 15:02 37.4 C 69 17 133/74 98 10/18/18 13:38 36.9 C 63 16 152/82 H 93 10/18/18 13:11 59 L 16 143/79 H 97 10/18/18 12:27 37.7 C H 69 16 144/76 H 97 10/18/18 11:21 37.2 C 71 17 106/63 92 Laboratory Results Laboratory Results - last 24 hr 10/17/18 10/18/18 10/18/18 20:02 05:45 05:45 WBC 6.19 RBC 3.32 L Hgb 9.3 L Hct 29.0 L MCV 87.3 MCH 28.0 MCHC 32.1 RDW Std Deviation 48.6 H RDW Coeff of Danya 15.3 H Plt Count 319 MPV 9.7 Sodium 141 Potassium 4.3 Chloride 112 H Carbon Dioxide 21 Anion Gap 8.0 BUN 9 Creatinine 0.92 Est Cr Clr Drug Dosing 44.2 Est GFR ( Amer) 69.1 Est GFR (Non-Af Amer) 59.6 BUN/Creatinine Ratio 10.2 Glucose 96 POC Glucose 112 H Calcium 8.7 10/18/18 10/18/18 10/18/18 07:14 11:09 16:34 WBC RBC Hgb Hct MCV MCH MCHC RDW Std Deviation RDW Coeff of Danya Plt Count MPV Sodium Potassium Chloride Carbon Dioxide Anion Gap BUN Creatinine Est Cr Clr Drug Dosing Est GFR ( Amer) Est GFR (Non-Af Amer) BUN/Creatinine Ratio Glucose POC Glucose 104 H 98 117 H Calcium (1) UTI (urinary tract infection) Hematuria presence: without hematuria Urinary tract infection type: site u nspecified Qualified Code(s): N39.0 - Urinary tract infection, site not specified (2) Diarrhea Diarrhea type: unspecified type Qualified Code(s): R19.7 - Diarrhea, unspecified
[2018-10-18] MEDS ORDERED: LOPERAMIDE HCL 2 MG CAP PO PRN (20:25)
[2018-10-18] MEDS: ATORVASTATIN 40 MG TAB PO SCH (21:03)
[2018-10-18] MEDS: METHYLCELLULOSE POWDER 454 GM JAR PO SCH (21:03)
[2018-10-18] MEDS: DULOXETINE HCL 30 MG CAP PO SCH (21:03)
[2018-10-18] MEDS: MYCOPHENOLATE MOFETIL 250 MG CAP PO SCH (21:04)
[2018-10-18] MEDS: AMOXICILLIN 500 MG CAP PO SCH (21:12)
[2018-10-19] MEDS: LEVOTHYROXINE SODIUM 88 MCG TABLET PO SCH (05:53)
[2018-10-19] MEDS: HEPARIN SOD 5,000 UNIT/0.5 ML VIAL SQ SCH ×2 (05:53→13:20)
[2018-10-19] MEDS: METHYLCELLULOSE POWDER 454 GM JAR PO SCH (07:36)
[2018-10-19] MEDS: METOPROLOL SUCC 25MG EXT REL TAB PO SCH (07:37)
[2018-10-19] MEDS: CHOLECALCIFEROL 1,000 UNITS TAB PO SCH (07:37)
[2018-10-19] MEDS: GABAPENTIN 300 MG CAP PO SCH (07:37)
[2018-10-19] MEDS: CLOPIDOGREL BISULFATE 75 MG TAB PO SCH (07:37)
[2018-10-19] MEDS: ALLOPURINOL 100 MG TAB PO SCH (07:37)
[2018-10-19] MEDS: ASPIRIN 81 MG ECTAB PO SCH (07:37)
[2018-10-19] MEDS: AMOXICILLIN 500 MG CAP PO SCH ×2 (07:38→13:20)
[2018-10-19] MEDS: MAGNESIUM CHLORIDE 64MG DELAYED REL TAB PO SCH (07:38)
[2018-10-19] MEDS: MYCOPHENOLATE MOFETIL 250 MG CAP PO SCH (07:38)
[2018-10-19] MEDS: INSULIN ASPART 100 UNITS/ML 3 ML PEN SC SCH ×2 (08:39→12:40)
[2018-10-19] MEDS ORDERED: LISINOPRIL 2.5 MG TAB PO SCH (09:00)
--- NOTE | 2018-10-19 10:46 | Gastroenterology Progress Note ---
Date of Service October 19, 2018 Assessment & Plan (1) Diarrhea: Pt is a 77 y/o female w chronic diarrhea, infectious workup negative, CT w signs of mild inflammation on sigmoid colon suspicious for non specific proctocolitis. She was on Cellcept for inclusion body myositis, wonder if she has opportunistic infection such as CMV colitis. She usually sees [facility], has had colonoscopy within less than 10 yrs. Flex sigmoidscopy on 10/18 w diverticulosis but otherwise unremarkable, bx done. She felt after starting Citrucel and Imodium, her diarrhea is much improved. - Continue Citrucel 2g BID + Imodium 2mg PRN diarrhea (max 16mg daily). - Path from flex sig pending. - No further GI plans, will sign off. Supervising Physician Co-Signing Physician Notes Attending attestation I have seen, examined this patient, and agree with the findings and above by our mid-level provider Ms.Leonie Hutchins, with the following additions -Doing well -pathology normal -Recall for GI any questions Subjective Pt is feeling well today. Didn't wake up in middle of night to defecate unlike few other nights. BM this AM a bit more formed. Denies any abd pain, n/v, rectal bleeding. Said after taking Citrucel and Imodium she feels diarrhea is definitely better. Review of Systems Review of Systems: All systems reviewed & are unremarkable except as noted in HPI & below Physical Exam Constitutional: WD/WN, vitals as above well groomed, cooperative and comfortable Eyes: PERRL, conjunctivae normal, anicteric sclerae ENMT: external ear and nose normal, oropharynx normal Respiratory: normal respiratory effort, lungs clear to auscultation Cardiovascular: RRR, no murmur, no edema Gastrointestinal (Abdomen): normal bowel sounds, soft, nontender, no hepatosplenomegaly Skin: no rashes, warm and dry no jaundice Neurologic: Motor/Sensory: no asterixis Psychiatric: A+Ox3, euthymic affect Lymphatic: no lymphedema Results & Data Vital Signs (Past 12 Hours) Vital Signs Temp Pulse Resp BP BP Pulse Ox 10/19/18 07:17 36.8 C 75 20 133/80 95 10/18/18 23:08 37.3 C 69 20 118/70 93 (1) Diarrhea Diarrhea type: unspecified type Qualified Code(s): R19.7 - Diarrhea, unspecified
--- NOTE | 2018-10-19 14:30 | Hospitalist Progress Note ---
Date of Service October 19, 2018 Assessment & Plan (1) Severe sepsis: E coli BACTEREMIA (2) UTI (urinary tract infection): Patient presented to the ED with malaise and loose stools. C. difficile PCR was negative. Urinalysis suggested a urinary tract infection. Patient did not meet SIRS criteria in the ED, but was receiving a beta-laurie which could have masked tachycardia and receiving mycophenolate mofetil which could suppress leukocytosis. Subsequently developed tachycardia, cardiac decompensation, acute kidney injury. -Urine culture and 2 / 2 blood cultures grew E. coli. No repeat blood cx were collected, but clinically improved and eager to be discharged today -No evidence of urinary tract obstruction on CT. -Received IV ceftriaxone x 7 days with improvement --> Transitioned to oral therapy on 10/18/18 with amoxicillin to complete 10 day course of therapy. (3) Diarrhea: Patient reports that she has been having diarrhea for several months. Improved after Citrucel and Imodium PRN -Stool C. difficile PCR, routine pathogens negative. Stool studies for Giardia antigen and cryptosporidia pending. -D/D considered: Diarrhea could be secondary to medications (e.g., duloxetine or mycophenolate mofetil). Diarrhea is very watery at times, considered vesicoenteric fistula but CT negative. CMV colitis considered given that she is on cell cept for inclusion body myositis -Held mycophenolate mofetil in setting of sepsis. Duloxetine dose decreased to 30 mg HS. -CT demonstrated thickening of sigmoid colon. -GI consulted--> Flex sigmoidoscopy done on 10/18/18- Diverticulosis but otherwise unremarkable. -GI signed off (4) CHF (congestive heart failure): Known ischemic heart disease with EF of 45 to 50% on 08/03/2018. -Developed pulmonary edema the morning of 10/12/2018. -Probable acute left ventricular systolic heart failure due to sepsis/tachyarrhythmias. -Repeat echocardiogram on 10/12/2018 showed LVEF of 30-35%. -Improved with diuresis and control of tachyarrhythmia. -Continue metoprolol succinate. -Started low dose lisinopril per Cardiology. -Cardiology signed off (5) Arrhythmia: -Narrow complex tachyarrhythmia morning of 10/12. -Did not break initially with intravenous adenosine, but eventually slowed after receiving intravenous metoprolol. -Unclear whether patient had SVT, sinus tachycardia, or combination of the 2. - metoprolol. (6) Elevated troponin: Serum troponin I 0.54 at time of admission and paramjit as high as 6.6. -Recent STEMI with PCI's of RCA and left circumflex with drug-eluting stents.. -Cardiology [place] most likely the current rise of troponin secondary to demand ischemia from sepsis/arrhythmia rather than a new coronary event. (7) Coronary artery disease: Recent STEMI 08/03/18 with PCI of left circumflex with drug-eluting stent. Elevated troponins as noted above associated with sepsis and tachyarrhythmia. -Acute coronary syndrome felt to be unlikely. -Continue dual antiplatelet therapy (aspirin and clopidogrel), metoprolol, statin. (8) Acute kidney injury: -Serum creatinine at time of admission was 0.54 and paramjit as high as 1.35. -Possible contributing factors: sepsis, CHF, volume depletion from diuretics and diarrhea. -Received IV fluids with improvement. (9) Hypokalemia: Secondary to diuresis and diarrhea -Resolved (10) 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: -Continue levothyroxine. 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 Ok to restart after antibiotics rx -Receives monthly infusions of IV gammaglobulin. -Checked with Pharmacy. IV Ig currently on back order. -Continue on discharge as per schedule (12) Weight loss: -20 lb weight loss over past year. -Patient to have CT of chest / abd / pelvis, but it has been postponed because of recent events. -CT did not show any evidence of malignancy. (13) DVT prophylaxis: -Initially received IV heparin due to elevated troponins. -Transitioned to SQ unfractionated heparin. -Ambulate as able. (14) Discharge planning issues: Skilled care or rehab recommended by OT . Patient was agreeable, but now again wants to go home Says she has enough support with home health, aide, daughter. Medical follow-up with Dr. Vanegas. Daughter by bedside. Agreeable with the plan. OK to discharge home with [facility]/PT/OT Subjective Patient is feeling much better today and eager to be discharged. Patient does not want to go to a residential facility/rehab anymore. BMs improved after imodium- had 2 small BMs. Denies any abdominal pain, nausea, vomiting, fever, chills. Physical Exam Physical Exam: GENERAL- AAOX3, No acute distress LUNGS- Air entry bilaterally equal. No rales, rhonchi, crackles, wheezes heard. HEART- Regular rate and rhythm. No murmurs ABDOMEN- Soft, non tender, non distended, Bowel sounds heard. EXTREMITIES- B/L Edema + Results & Data Vital Signs (Past 12 Hours) Vital Signs Temp Pulse Resp BP Pulse Ox 10/19/18 07:17 36.8 C 75 20 133/80 95 (1) UTI (urinary tract infection) Hematuria presence: without hematuria Urinary tract infection type: site unspecified Qualified Code(s): N39.0 - Urinary tract infection, site not specified (2) Diarrhea Diarrhea type: unspecified type Qualified Code(s): R19.7 - Diarrhea, unspecified
--- NOTE | 2018-10-19 14:36 | Discharge Summary ---
Date of Service October 19, 2018 Admission HPI Per Admitting Provider HISTORY OF PRESENT ILLNESS: A 77-year-old female with past medical history significant for hypothyroidism, gout, CAD, inclusion body myositis, neuropathy recently admitted on 08/03/2018 as outpatient routine workup showed ST elevated myocardial infarction and the patient was asymptomatic at that time and she was status post cardiac catheterization and 2 drug-eluting stents placed to mid RCA and distal circumflex.In last week of July she was treated for UTI with Augmentin for Klebsiella. Patient lives alone. Daughter lives close by. Since she was diagnosed with inclusion body myositis, she has poor ambulatory status. She has a lift chair at home, can ambulate to the bathroom. She lives alone. Since last 1-2 days she is having diarrhea, several episodes. The patient denies any abdominal pain but complains of gurgling in the bowels and nausea, feeling generalized weakness. Denies any cough, feeling hot and cold. No chest pain, no shortness of breath, no cough, no headache, no runny nose. Complains of sore throat. She always has some difficulty swallowing since she was diagnosed with inclusion body myositis. No rash. She has some bruises in the legs. She says she scrapping legs while she is ambulating. She has some mild edema in the lower extremities. Denies blood in the stools. Denies any burning micturition or hematuria. Currently resting comfortable and hemodynamically stable. Principal Diagnosis 1. Severe sepsis secondary to UTI 2. Bacteremia, E. coli secondary to UTI 3. Diarrhea, chronic 4. Acute on chronic left ventricular systolic heart failure 5. Narrow complex tachyarrhythmia 6. Elevated troponin 7. Acute kidney injury 8. Hypokalemia Secondary diagnoses on discharge 1. Inclusion body myositis 2. Weight loss 3. 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 Discharge Exam Constitutional: no acute distress Eyes: + anicteric sclerae Respiratory: no respiratory distress Auscultation: lungs clear to auscultation bilaterally Cardiovascular: Rate/Rhythm: regular rate and regular rhythm Heart Sounds: + murmur (II/ sys murmur at base); no gallop and no cardiac rub Vessels: no JVD Extremities: no calf tenderness and no edema Gastrointestinal (Abdomen): normal bowel sounds, soft, nontender, no hepatosplenomegaly Skin: no rashes, warm and dry Psychiatric: Orientation: alert and oriented x 3 Discharge Data Allergies Allergy/AdvReac Type Severity Reaction Status Date / Time No Known Allergies Allergy Verified 10/11/18 17:23 Consultations 10/11/18 19:07 ED Decision to Admit Stat 10/11/18 22:38 Consult Case Management - Discharge Planning Routine 10/12/18 08:00 Consult Cardiology Routine 10/12/18 08:43 Consult Metal Grader Stat 10/12/18 10:41 Consult Case Management - Discharge Planning Routine 10/12/18 10:42 Consult Metal Grader Routine 10/18/18 06:32 Consult Gastroenterology Routine Procedures Performed Operation Date: 10/18/18 09:30 Actual Procedures p Flexible Sigmoidoscopy Biopsy - Ren Ceron Ordered Studies 10/12/18 08:19 US venous doppler LE BI Urgent 10/15/18 10:55 CT pelvis wo con Routine 10/17/18 10:32 CT abd pelvis oral and IV con Routine CT chest w con Routine Hospital Course (1) Severe sepsis: E coli BACTEREMIA (2) UTI (urinary tract infection): Patient presented to the ED with malaise and loose stools. C. difficile PCR was negative. Urinalysis suggested a urinary tract infection. Patient did not meet SIRS criteria in the ED, but was receiving a beta-laurie which could have masked tachycardia and receiving mycophenolate mofetil which could suppress leukocytosis. Subsequently developed tachycardia, cardiac decompensation, acute kidney injury. -Urine culture and 2 / 2 blood cultures grew E. coli. No repeat blood cx were collected, but clinically improved and eager to be discharged today -No evidence of urinary tract obstruction on CT. -Received IV ceftriaxone x 7 days with improvement --> Transitioned to oral therapy on 10/18/18 with amoxicillin to complete 10 day course of therapy. (3) Diarrhea: Patient reports that she has been having diarrhea for several months. Improved after Citrucel and Imodium PRN -Stool C. difficile PCR, routine pathogens negative. Stool studies for Giardia antigen and cryptosporidia pending. -D/D considered: Diarrhea could be secondary to medications (e.g., duloxetine or mycophenolate mofetil). Diarrhea is very watery at times, considered vesi coenteric fistula but CT negative. CMV colitis considered given that she is on cell cept for inclusion body myositis -Held mycophenolate mofetil in setting of sepsis- restarted. Duloxetine dose decreased to 30 mg HS. -CT demonstrated thickening of sigmoid colon. -GI consulted--> Flex sigmoidoscopy done on 10/18/18- Diverticulosis but otherwise unremarkable. -GI signed off (4) CHF (congestive heart failure): Known ischemic heart disease with EF of 45 to 50% on 08/03/2018. -Developed pulmonary edema the morning of 10/12/2018. -Probable acute left ventricular systolic heart failure due to sepsis/tachyarrhythmias. -Repeat echocardiogram on 10/12/2018 showed LVEF of 30-35%. -Improved with diuresis and control of tachyarrhythmia. -Continue metoprolol succinate. -Started low dose lisinopril per Cardiology. -Cardiology signed off (5) Arrhythmia: -Narrow complex tachyarrhythmia morning of 10/12. -Did not break initially with intravenous adenosine, but eventually slowed after receiving intravenous metoprolol. -Unclear whether patient had SVT, sinus tachycardia, or combination of the 2. - metoprolol. (6) Elevated troponin: Serum troponin I 0.54 at time of admission and paramjit as high as 6.6. -Recent STEMI with PCI's of RCA and left circumflex with drug-eluting stents.. -Cardiology [place] most likely the current rise of troponin secondary to demand ischemia from sepsis/arrhythmia rather than a new coronary event. (7) Coronary artery disease: Recent STEMI 08/03/18 with PCI of left circumflex with drug-eluting stent. Elevated troponins as noted above associated with sepsis and tachyarrhythmia. -Acute coronary syndrome felt to be unlikely. -Continue dual antiplatelet therapy (aspirin and clopidogrel), metoprolol, statin. (8) Acute kidney injury: -Serum creatinine at time of admission was 0.54 and paramjit as high as 1.35. -Possible contributing factors: sepsis, CHF, volume depletion from diuretics and diarrhea. -Received IV fluids with improvement. (9) Hypokalemia: Secondary to diuresis and diarrhea -Resolved (10) 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: -Continue levothyroxine. 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 Restarted -Receives monthly infusions of IV gammaglobulin. -Checked with Pharmacy. IV Ig currently on back order. -Continue on discharge as per schedule (12) Weight loss: -20 lb weight loss over past year. -Patient to have CT of chest / abd / pelvis, but it has been postponed because of recent events. -CT did not show any evidence of malignancy. (13) DVT prophylaxis: -Initially received IV heparin due to elevated troponins. -Transitioned to SQ unfractionated heparin. -Ambulate as able. (14) Discharge planning issues: Skilled care or rehab recommended by OT . Patient was agreeable, but now again wants to go home Says she has enough support with home health, aide, daughter. Medical follow-up with Dr. Vanegas. Daughter by bedside. Agreeable with the plan. OK to discharge home with [facility]/PT/OT Total Time Total Time Spent Total Time Spent (In Minutes): 40 minutes Discharge Plan Discharge Items Patient Disposition: Home - Home Health Services Reason For Visit: WEAKNESS,DIARRHEA Discharge Diagnosis: 1. Sepsis secondary to UTI 2. Bacteremia secondary to UTI (E coli) 3. Acute CHF exacerbation 4. Acute kidney injury Discharge Goals: Decrease discomfort Activity: Resume your previous activity Activity Comment: PT/OT outpatient recommended Non-emergency contact: Primary Care Provider Call non-emergency contact if: your symptoms worsen Follow-up/Referrals: Elizabeth Vanegas DO [Primary Care Provider] - 10/22/18 11:10 am ([place] office) Diet: Low Sodium (2gm) Fluids: 1800ml (7 cups) Addtl Provider Instructions: MEDICINE CHANGES 1. New medication - Amoxicillin 500 mg PO three times a day for 3 more days to complete course of 10 days for sepsis/bacteremia Prescriptions: New amoxicillin 500 mg Capsule 500 mg PO TID 3 Days Qty: 9 RF: 0 nitroglycerin [Nitrostat] 0.4 mg Tablet, Sublingual 0.4 mg sublingual UD PRN (Reason: chest pain) 30 Days Qty: 30 RF: 0 lisinopril 2.5 mg Tablet 2.5 mg PO QAM 30 Days Qty: 30 RF: 0 loperamide [Imodium A-D] 2 mg capsule 2 mg PO Q6H PRN (Reason: loose stool) Qty: 20 RF: 0 Continued gabapentin [Neurontin] 600 mg tablet 600 mg PO TID RF: 0 allopurinol 100 mg Tablet 100 mg PO QAM RF: 0 mycophenolate mofetil [CellCept] 500 mg tablet 1,000 mg PO BID RF: 0 levothyroxine 88 mcg tablet 88 mcg PO QAM RF: 0 cyanocobalamin (vitamin B-12) 1,000 mcg/mL Solution 1,000 mcg IM MONTHLY RF: 0 duloxetine [Cymbalta] 30 mg capsule,delayed release(DR/EC) 60 mg PO HS RF: 0 cholecalciferol (vitamin D3) [Vitamin D3] 1,000 unit Tablet 2,000 unit PO BID RF: 0 Ivig 1 dose IV MONTHLY RF: 0 clopidogrel 75 mg tablet 75 mg PO QAM RF: 0 aspirin [Ecotrin Low Strength] 81 mg tablet,delayed release (DR/EC) 81 mg PO QAM RF: 0 acetaminophen [Tylenol Extra Strength] 500 mg tablet 500 mg PO TID RF: 0 atorvastatin 40 mg tablet 40 mg PO HS RF: 0 Toprol XL 25 mg 25 mg PO DAILY RF: 0 Changed Citrucel (sucrose) Powder 1 tbsp PO BID Qty: 0 RF: 0 Stand-Alone Forms: [facility] Discharge Orders: Discharge Order (Routine); Ordered 10/19/18 Ordered By: Keshia Tavarez Admission Data Admit Date/Time: 10/11/18 20:52 Attending Provider: Keshia Tavarez Admit Provider: Marc Yin Primary Care Provider: Elizabeth Vanegas Other Providers: Carlos Eduardo Hooks ; Mamadou Babcock ; Marc Yin ; Edouard Black ; Ren Ceron ; Sheldon Borrero Service: Medical Other Pending Studies at Discharge: Yes Studies:: Follow up - Giardia, Cryptosporidium stool studies F/up flex sigmoidoscopy pathology
[2018-10-19 18:49] LABS: Cryptosporidium Antigen NOT DETECTED (NOT DETECTED)
[2018-10-26 11:20] LABS: iSTAT Allen Test Pass; iSTAT Art Bld Gas pCO2 Correct 32 mmHg (35-46); iSTAT Art Bld Gas pH Corrected 7.197 (7.35-7.45); iSTAT Arterial Blood Gas HCO3 13 meg/L (19-24); iSTAT Arterial Blood Gas pCO2 33 mmHg (35-46); iSTAT Arterial Blood Gas pH 7.19 (7.35-7.45); iSTAT Carbon Dioxide 13 mEq/l (24-31); iSTAT FiO2 100 %; iSTAT Hematocrit 36 % (37-47); iSTAT Hemoglobin 12.2 g/dl (12.0-16.0); iSTAT Potassium 3.6 mEq/L (3.3-5.0); iSTAT Site L Radial; iSTAT Sodium 138 mEq/L (135-144)
== END 2018-10-19 15:26 | disposition home health service (06) | DRG 853 ==
LOC: 2E 15:28 → ED 15:28 → SUATTDRO 20:52 → 2E 22:29 → 1E 10-12 08:34 → 2S 10-14 15:56 → 4E 10-18 18:22

== ENCOUNTER 2018-11-30 01:53 | Inpatient (IN) ==
[2018-11-30 02:50] LABS: Basophils # (auto) 0.02 K/uL (0-0.2); Basophils % (auto) 0.1 %; Eosinophils # (auto) 0.04 K/uL (0-0.5); Eosinophils % (auto) 0.3 %; Hematocrit (blood only) 39.2 % (37-47); Hemoglobin 13.7 g/dL (12.0-16.0); Immature Granulocytes # (auto) 0.04 K/uL (0.00-0.02); Immature Granulocytes % (auto) 0.3 %; Lymphocytes # (auto) 1.38 K/uL (1.2-3.4); Lymphocytes % (auto) 10.1 %; Mean Corpuscular Hgb Conc 34.9 g/dL (32-36); Mean Platelet Volume 9.7 fL (7.4-10.4); Monocytes # (auto) 0.85 K/uL (0.11-0.59); Monocytes % (auto) 6.2 %; Neutrophils # (auto) 11.37 K/uL (1.4-6.5); Platelet Count 501 K/uL (130-400); RDW Coefficient of Variation 15.2 % (11.5-14.5); RDW Standard Deviation 47.3 fL (36.4-46.3); Red Blood Count 4.61 M/uL (4.2-5.4)
[2018-11-30 03:19] LABS: Alanine Aminotransferase 17 U/L (12-78); Albumin Globulin Ratio 0.9 (0.9-2); Albumin Level 4.5 gm/dl (3.4-5.0); Alkaline Phosphatase 151 U/L (45-117); BUN Creatinine Ratio 33.5 (10-20); Bilirubin,Total 0.4 mg/dl (0.2-1); Blood Urea Nitrogen 56 mg/dl (7-18); Calcium 10.8 mg/dl (8.5-10.1); Carbon Dioxide 14 mmol/L (21-32); Chloride 102 mmol/L (98-107); Est GFR (African American) 33.9; Est GFR (Non-African American) 29.2; Globulin 5.2 gm/dl (2.5-4.0); Glucose 137 mg/dl (70-99); Sodium 129 mmol/L (136-145); Total Protein 9.7 gm/dl (6.4-8.2); Troponin I < 0.015 ng/ml (0-0.045)
[2018-11-30] MEDS ORDERED: ONDANSETRON INJ 2 MG/ML 2 ML VIAL IV STA (04:27)
[2018-11-30 04:31] LABS: Appearance Urine Cloudy (Clear); Bacteria Urine Automated Negative (Negative); Bilirubin Urine Negative (Negative); Blood Urine Negative (Negative); Color Urine Yellow; Glucose Urine UA Negative (Negative); Ketones Urine Negative (Negative); Leukocyte Esterase Urine Negative (Negative); Nitrite Urine Negative (Negative); Protein Urine Trace (Negative); RBC Urine Automated 0-4 /hpf (0-4); Specific Gravity Urine 1.027 (1.000-1.030); Urobilinogen Urine Negative (Negative); WBC Urine Automated 0 /hpf (0-5)
[2018-11-30] MEDS ORDERED: SODIUM CHLORIDE 0.9% 500 ML IV SCH (04:45)
[2018-11-30] MEDS ORDERED: D5W AND NSS 1,000 ML IV SCH (06:15)
--- NOTE | 2018-11-30 06:29 | Emergency Department Note ---
Entered by Michelle Hernandez acting as a scribe for Evette Serrano DO History of Present Illness General Chief complaint: Abnormal Labs/Diagnostic Testing Stated complaint: ABNORMAL LABS Time Seen by Provider: 11/30/18 02:06 Source: patient and family History of Present Illness Onset (ago): day(s) 3 Location: head (Weakness) Severity: similar to prior episodes Pain Consistency: + other (Persistent) Quality: + other (Weakness) Exacerbated By: + movement and + other (Diarrhea) Associated symptoms: + headaches, + loss of appetite, + weakness and + other (Positive dizziness, trouble ambulating, diarrhea, abnormal labs. Negative abdominal pain. ) The patient is a 77 year old female presenting to the Emergency Department complaining of persistent weakness starting 3 days ago. The patient reports that she got lab work done today in [place] at noon because she has been feeling weak. She states that she was called this evening and told that her Potassium was elevated at 6 and that she needed to come to the hospital. She explains that in the past 3 days she has had trouble walking because she has been so weak. She notes that she has had a headache and is dizzy. She adds that she has lost her appetite. The patients family report that the patient has had uncontrollable diarrhea for the past 6 months. They state that in the past 6 months the patient has lost 20 to 30 pounds. They explain that that the last time the patient was weak she went into heart failure and deteriorated quickly. They note that the patient has been taking Cellcept for over 2 years and has been receiving IVIG for the past 6 months. They add that the patient lives by herself at home. The patient denies abdominal pain. Home Medications Home Medications Medication Instructions Recorded Confirmed Type Ivig 1 dose IV MONTHLY 08/03/18 11/30/18 History allopurinol 100 mg PO QAM 08/03/18 11/30/18 History cholecalciferol (vitamin D3) 2,000 unit PO BID 08/03/18 11/30/18 History [Vitamin D3] cyanocobalamin (vitamin B-12) 1,000 mcg IM MONTHLY 08/03/18 11/30/18 History duloxetine [Cymbalta] 60 mg PO HS 08/03/18 11/30/18 History gabapentin [Neurontin] 600 mg PO TID 08/03/18 11/30/18 History levothyroxine 88 mcg PO QAM 08/03/18 11/30/18 History mycophenolate mofetil [CellCept] 1,000 mg PO BID 08/03/18 11/30/18 History acetaminophen [Tylenol Extra 500 mg PO TID 10/11/18 11/30/18 History Strength] aspirin [Ecotrin Low Strength] 81 mg PO QAM 10/11/18 11/30/18 History atorvastatin 40 mg PO HS 10/11/18 11/30/18 History clopidogrel 75 mg PO QAM 10/11/18 11/30/18 History Citrucel (sucrose) 1 tbsp PO BID #0 g 10/19/18 11/30/18 Rx lisinopril 2.5 mg PO DAILY 11/30/18 11/30/18 History metoprolol succinate 25 mg PO DAILY 11/30/18 11/30/18 History nitroglycerin [Nitrostat] 0.4 mg SUBLINGUAL UD PRN 11/30/18 11/30/18 History Allergies Allergy/AdvReac Type Severity Reaction Status Date / Time No Known Allergies Allergy Verified 10/11/18 17:23 Past Med/Surg History Medical History History of [place] (myocardial infarction) Coronary artery disease CHF (congestive heart failure) Severe sepsis History of hysterectomy (Chronic) Inflammatory arthritis (Chronic) Gout (Chronic) Inclusion body myositis (Chronic) 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 (Chronic) HLD (hyperlipidemia) (Chronic) Neuropathy (Chronic) Surgical History S/P cardiac cath Social History Preferred Language: Slovak Communication Ability: Effective 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 and A total of 10 systems reviewed and were otherwise negative Physical Exam Vital Signs Vital Signs - 24 hr 11/30/18 01:55 11/30/18 04:21 11/30/18 06:00 Temperature 36.3 C L Temperature Source Oral Sepsis Recent Fever Within 48 Hours No Sepsis New/Unexplained Change in Mental Status No Sepsis Action Taken by Nursing No Action Required Pulse Rate 73 Pulse Rate [Finger] 81 70 Pulse Rhythm [Finger] Regular Pulse Strength [Finger] Normal Respiratory Rate 18 20 16 Respiratory Effort / Characteristics Non-Labored Respiratory Depth Normal Blood Pressure 124/81 Blood Pressure [Right Arm] 171/82 H 151/76 H Blood Pressure Mean 95 Blood Pressure Mean [Right Arm] 111 101 Blood Pressure Position [Right Arm] Lying Pulse Oximetry 100 98 95 Oxygen Delivery Method Room Air Room Air General: Chronically ill-appearing. HEENT: Head - normocephalic and atraumatic. Pupils are equal, round, and reactive to light. Extraocular eye muscles are intact, and sclera are anicteric. Nose - Dry nasal mucosa without discharge. Mouth - Dry buccal mucosa. Oropharynx is nonerythematous and there is no tonsillar exudate or edema noted. Neck: Supple; no JVD, nuchal rigidity, cervical lymphadenopathy, or auscultated bruits. Heart: Regular rate and rhythm. There is a normal S1 and S2 with no murmurs, clicks, or gallops appreciated. Lungs: Clear to auscultation bilaterally with no wheezes, rales, or rhonchi. Abdomen: Soft, completely nontender, nondistended, with good bowel sounds. There are no palpable pulsatile masses or hepatosplenomegaly. There is no guarding, rigidity, or rebound noted. Extremities: No evidence of cyanosis, clubbing, or edema. There are easily palpable peripheral pulses. Skin: Skin is dry with poor turgor. Course 0208: The patient was evaluated in room B10, and a complete history and physical examination were performed. An IV lock was initiated and labs were drawn as above. 0232: I reviewed the patients lab work from [facility] that shows an elevated potassium of 6, BUN of 42, Creatinine of 1.1 and Elevated troponin and CK-MB. 0235: I reevaluated the patient at this time. 0401: I went over the patients lab work with the patients family. I will reorder a potassium level. The patient is being straight catheterized for a urine specimen. 0430: The patient had an episode of vomiting. I ordered Zofran 4 mg IV. 0453: Sodium Chloride 500 ml @ 125 mls/hr IV. 0516: I discussed the patient's case with Dr. Humphrey snow. He will evaluate the patient for further management. Consultations Consultation #1: I discussed the patient's case with Dr. Palepu - [facility] hospitalist. He will evaluate the patient for further management. Time: 05:16 Administered Medications Sodium Chloride (Nss) 500 mls @ 125 mls/hr IV .Q4H JERE Stop: 12/30/18 04:44 Last Admin: 11/30/18 04:53 Dose: 125 mls/hr Documented by: [id number] Discontinued Medications Ondansetron HCl (Zofran) 4 mg IV NOW STA Stop: 11/30/18 04:28 Last Admin: 11/30/18 04:30 Dose: 4 mg Documented by: [id number] Medical Decision Making Differential Diagnosis Differentials include lab error, dehydration, perfuse diarrhea and renal failure amongst others. Medical Records Attestation: I reviewed the patient's medical records. Home Medications Current Medication List: was personally reviewed by me Laboratory Data Attestation: I reviewed the patient's lab results. Result diagrams: 11/30/18 02:40 11/30/18 04:19 Lab Results 11/30/18 11/30/18 11/30/18 Range/Units 02:40 02:40 04:10 WBC 13.70 H (4.8-10.8) K/uL RBC 4.61 (4.2-5.4) M/uL Hgb 13.7 (12.0-16.0) g/dL Hct 39.2 (37-47) % MCV 85.0 (80-100) fL MCH 29.7 (25-34) pg MCHC 34.9 (32-36) g/dL RDW Std Deviation 47.3 H (36.4-46.3) fL RDW Coeff of Danya 15.2 H (11.5-14.5) % Plt Count 501 H (130-400) K/uL MPV 9.7 (7.4-10.4) fL Immature Gran % (Auto) 0.3 % Neut % (Auto) 83.0 % Lymph % (Auto) 10.1 % [place] % (Auto) 6.2 % Eos % (Auto) 0.3 % Baso % (Auto) 0.1 % Immature Gran # (Auto) 0.04 H (0.00-0.02) K/uL Neut # (Auto) 11.37 H (1.4-6.5) K/uL Lymph # (Auto) 1.38 (1.2-3.4) K/uL [place] # (Auto) 0.85 H (0.11-0.59) K/uL Eos # (Auto) 0.04 (0-0.5) K/uL Baso # (Auto) 0.02 (0-0.2) K/uL Sodium 129 L (136-145) mmol/L Potassium (3.5-5.1) mmol/L Chloride 102 (98-107) mmol/L Carbon Dioxide 14 L (21-32) mmol/L Anion Gap 13.0 H (3-11) BUN 56 H (7-18) mg/dl Creatinine 1.66 H (0.6-1.2) mg/dl Est Cr Clr Drug Dosing Not Reportable Est GFR ( Amer) 33.9 Est GFR (Non-Af Amer) 29.2 BUN/Creatinine Ratio 33.5 H (10-20) Glucose 137 H (70-99) mg/dl Calcium 10.8 H (8.5-10.1) mg/dl Total Bilirubin 0.4 (0.2-1) mg/dl AST (15-37) U/L ALT 17 (12-78) U/L Alkaline Phosphatase 151 H (45-117) U/L Troponin I < 0.015 (0-0.045) ng/ml Total Protein 9.7 H (6.4-8.2) gm/dl Albumin 4.5 (3.4-5.0) gm/dl Globulin 5.2 H (2.5-4.0) gm/dl Albumin/Globulin Ratio 0.9 (0.9-2) Urine Color Yellow Urine Appearance Cloudy A (Clear) Urine pH 5.0 (4.5-7.5) Ur Specific [place] 1.027 (1.000-1.030) Urine Protein Trace H (Negative) Urine Glucose (UA) Negative (Negative) Urine Ketones Negative (Negative) Urine Blood Negative (Negative) Urine Nitrite Negative (Negative) Urine Bilirubin Negative (Negative) Urine Urobilinogen Negative (Negative) Ur Leukocyte Esterase Negative (Negative) Urine WBC (Auto) 0 (0-5) /hpf Urine RBC (Auto) 0-4 (0-4) /hpf U Hyaline Cast (Auto) 5-10 H (0-5) /lpf U Epithel Cells (Auto) 5-10 H (0-5) /lpf Urine Bacteria (Auto) Negative (Negative) 11/30/18 Range/Units 04:19 WBC (4.8-10.8) K/uL RBC (4.2-5.4) M/uL Hgb (12.0-16.0) g/dL Hct (37-47) % MCV (80-100) fL MCH (25-34) pg MCHC (32-36) g/dL RDW Std Deviation (36.4-46.3) fL RDW Coeff of Danya (11.5-14.5) % Plt Count (130-400) K/uL MPV (7.4-10.4) fL Immature Gran % (Auto) % Neut % (Auto) % Lymph % (Auto) % [place] % (Auto) % Eos % (Auto) % Baso % (Auto) % Immature Gran # (Auto) (0.00-0.02) K/uL Neut # (Auto) (1.4-6.5) K/uL Lymph # (Auto) (1.2-3.4) K/uL [place] # (Auto) (0.11-0.59) K/uL Eos # (Auto) (0-0.5) K/uL Baso # (Auto) (0-0.2) K/uL Sodium (136-145) mmol/L Potassium 5.2 H (3.5-5.1) mmol/L Chloride (98-107) mmol/L Carbon Dioxide (21-32) mmol/L Anion Gap (3-11) BUN (7-18) mg/dl Creatinine (0.6-1.2) mg/dl Est Cr Clr Drug Dosing Est GFR ( Amer) Est GFR (Non-Af Amer) BUN/Creatinine Ratio (10-20) Glucose (70-99) mg/dl Calcium (8.5-10.1) mg/dl Total Bilirubin (0.2-1) mg/dl AST (15-37) U/L ALT (12-78) U/L Alkaline Phosphatase (45-117) U/L Troponin I (0-0.045) ng/ml Total Protein (6.4-8.2) gm/dl Albumin (3.4-5.0) gm/dl Globulin (2.5-4.0) gm/dl Albumin/Globulin Ratio (0.9-2) Urine Color Urine Appearance (Clear) Urine pH (4.5-7.5) Ur Specific [place] (1.000-1.030) Urine Protein (Negative) Urine Glucose (UA) (Negative) Urine Ketones (Negative) Urine Blood (Negative) Urine Nitrite (Negative) Urine Bilirubin (Negative) Urine Urobilinogen (Negative) Ur Leukocyte Esterase (Negative) Urine WBC (Auto) (0-5) /hpf Urine RBC (Auto) (0-4) /hpf U Hyaline Cast (Auto) (0-5) /lpf U Epithel Cells (Auto) (0-5) /lpf Urine Bacteria (Auto) (Negative) ECG Data Attestation: I personally reviewed and interpreted this ECG as follows: Indication: weakness Rate (beats per minute): 66 Rhythm: normal sinus Findings: + T-wave inversion (Lead 1 and aVL) Comparison ECG Date: from (10/13/18) Change: no significant change Additional Comments: 0418: Repeat EKG per my interpretation: Normal sinus rhythm at 82 bpm. No ectopy. No acute ischemic changes. Blood Pressure Blood Pressure Findings: Elevated blood pressure Blood Pressure Disposition: further management by hospitalist NATHANAEL Narrative The patient is a 77 year old female presenting to the Emergency Department complaining of persistent weakness starting 3 days ago. The patient went to her PCP office where they more laboratory studies earlier today and notified them tonight that she had a high potassium level. She was directed here to the emergency department to have that laboratory test repeated. It was noted that the patient's potassium was 5.2 but more importantly the sodium was 129. This could account for the patient's weakness. Patient has a history of recurrent urinary tract infections. They did a urine specimen yesterday which appeared to be infected so she was started on oral antibiotics. The daughter explains that in previous episodes of dehydration, she was treated with IV fluids and went into congestive heart failure. We will treat her slowly with IV normal saline solution. The patient had a high-sensitivity troponin performed earlier today which was positive. We did an EKG and obtain a troponin here tonight which were normal. I discussed the case with the [facility] Hospitalist and they will evaluate for further management. Impression & Plan Hyponatremia, Vomiting, Hyperkalemia Discharge Plan Visit Data Chief Complaint: Abnormal Labs/Diagnostic Testing Stated Complaint: ABNORMAL LABS ED Provider: Evette Serrano Discharge Problem: Hyponatremia, Vomiting, Hyperkalemia Patient Disposition: Being Evaluated by Hospitalist Forms Stand Alone Forms: My [facility] Prescriptions Prescriptions: No Action gabapentin [Neurontin] 600 mg tablet 600 mg PO TID RF: 0 allopurinol 100 mg Tablet 100 mg PO QAM RF: 0 mycophenolate mofetil [CellCept] 500 mg tablet 1,000 mg PO BID RF: 0 levothyroxine 88 mcg tablet 88 mcg PO QAM RF: 0 cyanocobalamin (vitamin B-12) 1,000 mcg/mL Solution 1,000 mcg IM MONTHLY RF: 0 duloxetine [Cymbalta] 30 mg capsule,delayed release(DR/EC) 60 mg PO HS RF: 0 cholecalciferol (vitamin D3) [Vitamin D3] 1,000 unit Tablet 2,000 unit PO BID RF: 0 Ivig 1 dose IV MONTHLY RF: 0 clopidogrel 75 mg tablet 75 mg PO QAM RF: 0 aspirin [Ecotrin Low Strength] 81 mg tablet,delayed release (DR/EC) 81 mg PO QAM RF: 0 acetaminophen [Tylenol Extra Strength] 500 mg tablet 500 mg PO TID RF: 0 atorvastatin 40 mg tablet 40 mg PO HS RF: 0 Citrucel (sucrose) Powder 1 tbsp PO BID Qty: 0 RF: 0 lisinopril 2.5 mg tablet 2.5 mg PO DAILY RF: 0 nitroglycerin [Nitrostat] 0.4 mg tablet, sublingual 0.4 mg sublingual UD PRN (Reason: Chest Pain) RF: 0 metoprolol succinate 25 mg tablet extended release 24 hr 25 mg PO DAILY RF: 0 Referrals Referrals: Elizabeth Vanegas DO [Primary Care Provider] - Discharge Problem: Vomiting Qualifiers: Vomiting type: unspecified Vomiting Intractability: non-intractable Nausea presence: unspecified Qualified Code(s): R11.10 - Vomiting, unspecified The scribe's documentation has been prepared under my direction and personally reviewed by me in its entirety. I confirm that the note above accurately reflects all work, treatment, procedures, and medical decision making performed by me.
[2018-11-30] MEDS ORDERED: NITROGLYCERIN SL 0.4 MG/TAB TAB SL PRN (07:17)
[2018-11-30] MEDS ORDERED: ONDANSETRON INJ 2 MG/ML 2 ML VIAL IV PRN (07:17)
[2018-11-30] MEDS ORDERED: ACETAMINOPHEN 325 MG TAB PO PRN (07:17)
[2018-11-30] MEDS: CHOLECALCIFEROL 1,000 UNITS TAB PO SCH ×2 (07:59→20:12)
[2018-11-30] MEDS: ALLOPURINOL 100 MG TAB PO SCH (08:00)
[2018-11-30] MEDS: ASPIRIN 81 MG ECTAB PO SCH (08:00)
[2018-11-30] MEDS: CLOPIDOGREL BISULFATE 75 MG TAB PO SCH (08:00)
[2018-11-30] MEDS: GABAPENTIN 600 MG TAB PO SCH ×3 (08:00→20:11)
[2018-11-30] MEDS: METOPROLOL SUCC 25MG EXT REL TAB PO SCH (08:00)
[2018-11-30] MEDS: LEVOTHYROXINE SODIUM 88 MCG TABLET PO SCH (08:00)
[2018-11-30 08:30] LABS: BUN Creatinine Ratio 38.6 (10-20); Blood Urea Nitrogen 60 mg/dl (7-18); Carbon Dioxide 13 mmol/L (21-32); Chloride 106 mmol/L (98-107); Creatinine Clr Calc Pharmacy 23.3 ml/min; Est GFR (African American) 36.8; Est GFR (Non-African American) 31.7; Glucose 154 mg/dl (70-99); Magnesium 2.3 mg/dl (1.8-2.4); Potassium 5.1 mmol/L (3.5-5.1); Sodium 131 mmol/L (136-145)
--- NOTE | 2018-11-30 08:36 | History and Physical Report ---
DATE OF ADMISSION: 11/30/2018 CHIEF COMPLAINT: Electrolyte abnormalities, nausea, vomiting and diarrhea. HISTORY OF PRESENT ILLNESS: A 77-year-old female with past medical history significant for hypothyroidism, gout, inclusion body myositis, neuropathy, history of ST elevated LA s/p 2 drug-eluting stents placed in mid RCA and distal circumflex in July 2018, CHF with last echo shows EF of 30%, She has a history of UTIs, first was in July and she was admitted in October 11 with weakness and diarrhea. At that time, she became septic with pansensitive E. coli and bacteremia. She was treated with 1 week of Rocephin in the hospital and discharged on amoxicillin to complete 10-day course. She is having diarrhea for some time, during last admission, she was seen by GI and flexible sigmoidoscopy was done which was unremarkable except for diverticulosis . Durin last admission she also had nstemi thought to be from sepsis and tachycardia. Ef alsio reduced to 30% and she was started on low dose lisinopril. The patient was discharged home with home health.. Since discharge, she is not doing good, ambulatory status is poor, poor appetite, and she is having diarrhea, still the same. She says she has 2 episodes of diarrhea every day with large amounts and also yesterday there was some nausea, vomiting, and outpatient labs were checked which showed potassium of 6 and she was advised to come to the hospital. Here in the ER, sodium is 129, potassium is 5.2, creatinine 1.66 and CO2 is 14.Received f fluids,and she is feeling better. The daughter is stating the patient did not improve since last admission, and concerned her UTI might have not cleared yet. Actually she was started on cipro by PCP today . But Urinalysis is mostly unremarkable here in the ER. The patient denies any chest pain. She is short of breath on ambulation, she walks with help of cane but not much ambulating. She gets food on wheels, denies any headache, has some dizziness, has some difficulty swallowing. She says she is eating soft food .Complains of some abdominal pain. Currently resting comfortably and hemodynamically stable. there was a question of CellCept causing diarrhea and dose was cut to half initially but at the time of discharge, she was put back on regular dose. Currently resting comfortably and hemodynamically stable. ALLERGIES: No known drug allergies. PAST MEDICAL HISTORY: As mentioned above. PAST SURGICAL HISTORY: Muscle biopsy, removal of oviducts, sigmoidoscopy, total hysterectomy. MEDICATIONS: The patient is on Imodium 2 mg p.o. t.i.d. p.r.n., lisinopril 2.5 mg p.o. daily, levothyroxine 88 mcg p.o. daily, Nitrostat 0.4 mg sublingual p.r.n., Tylenol 500 mg p.o. q. 6 hours p.r.n., aspirin 81 mg p.o. daily, Lipitor 40 mg p.o. daily, Plavix 75 mg p.o. daily, Citrucel 2 times a day, Toprol-XL 25 mg p.o. daily, allopurinol 100 mg p.o. daily, Cymbalta 60 mg p.o. at bedtime, gabapentin 600 mg p.o. t.i.d., CellCept 1000 mg p.o. b.i.d., vitamin D 2000 units p.o. daily, vitamin B12 injections monthly. FAMILY HISTORY: Significant for: Mother of [place] at age of 88. Father had emphysema. SOCIAL HISTORY: , lives alone. No smoking, no alcohol, no drug use. REVIEW OF SYMPTOMS: As per HPI. Rest of review of systems is negative. PHYSICAL EXAMINATION: GENERAL: The patient is old and frail, not in acute distress. VITAL SIGNS: Temperature 36.3, pulse 81, respiratory rate 20, blood pressure 171/82, oxygen 98% on room air. HEENT: No pallor, no icterus. Pupils equal, round, reactive to light. NECK: No JVD, no neck masses, no carotid bruits. CARDIOVASCULAR: S1, S2 heard, regular rate and rhythm, no murmur, no gallop. RESPIRATORY SYSTEM: Normal AP diameter. No accessory muscle use. No wheezing, no crackles. ABDOMEN: Soft, bowel sounds present, nontender. No distention. CENTRAL NERVOUS SYSTEM: Cranial nerves II-XII grossly nonfocal. EXTREMITIES: No edema, no erythema. LABORATORY DATA: WBC 13.7, hemoglobin 10.7, hematocrit 39.2, platelets 501. Sodium 129, potassium 5.2, chloride 102, bicarb 14, BUN 56, creatinine 1.6, serum glucose 137, calcium 10.8, total bilirubin 0.4, ALT 17, alkaline phosphatase 151. Troponin I less than 0.015. Urinalysis unremarkable. EKG: Normal sinus rhythm, rate of 66, Q waves in inferior leads, nonspecific T-wave abnormalities. ASSESSMENT AND PLAN: This is a 77-year-old female who presents with generalized weakness, nausea, vomiting and diarrhea. 1. Generalized weakness, nausea, vomiting, diarrhea, possible gastroenteritis, recently was in the hospital for UTI with sepsis with e. coli, treated with 10 days of antibiotics. As the patient was recently on antibiotics, we will check stool for Clostridium difficile, we will check stool cultures.Diarrhea is going for some time, in last admission, she had a flexible sigmoidoscopy which showed diverticulosis, otherwise unremarkable. We will keep the patient on clear liquids and gentle fluids and monitor. 2. Electrolyte abnormalities with hyperkalemia, and mild hyponatremia ,getting fluids. We will repeat the labs again and hold the lisinopril, just started last admission and follow the labs and consult nephrology for further recommendations. 3. Acute kidney injury. Baseline creatinine around 1, presents with creatinine of 1.66, probably from above. We will also hold the lisinopril. Gentle fluids. Follow the repeat labs. 4. Metabolic acidosis. Will follow repeat labs and consult nephrology. 5. History of congestive heart failure, EF was 45% in July 2018. Recent repeat echocardiogram on 10/12/2018 showed EF of 30-35%, on Toprol-XL, lisinopril was started last admission, but holding for above reasons. Getting gentle fluids, follow for any volume overload. If any concerns, we will consult cardiology. 5. Elevated troponin,high sensitivity troponin done as outpatient was very high, but troponin was negative here. The patient is asymptomatic. We will follow the repeat cardiac enzymes. If any concerns, the patient will get echo and cardiac consult. 6. History of coronary artery disease, history of ST elevated myocardial infarction in July 2018 s/p stents and non-ST elevated myocardial infarction in last admission October thought to be from sepsis. The patient has PCI to RCA and left circumflex with drug-eluting stents, on aspirin, Plavix, Toprol-XL and statin. We will monitor. 7. 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. Continue Synthroid. 8. History of inclusion body myositis. The patient is following with rheumatology at [facility]. The patient is on CellCept and monthly IV gammaglobulin. Last admission CellCept dose was cut back to 500 mg b.i.d. thought to be contributing for diarrhea, but at discharge she was back on her usual dose of 1000 mg p.o. b.i.d. We will hold CellCept for now.. Weight loss recently lost over 20 pounds, but no obvious cause identified. 9. Gout, on allopurinol. 10. Deep venous thrombosis prophylaxis, sequential compression devices for now. 11. Disposition: Admit to tele floor. Expected PT, OT prior to discharge. Social Service to help with discharge planning. Level 1 full code. MTDD
[2018-11-30 08:41] LABS: Creatine Kinase 41 U/L (26-192); Phosphorus 5.9 mg/dl (2.5-4.9); Troponin I < 0.015 ng/ml (0-0.045)
--- NOTE | 2018-11-30 08:50 | Nephrology Consultation ---
Date of Consultation November 30, 2018 Assessment & Plan (1) Acute kidney injury: baseline creatinine 0.9-1.0; presenting creatinine 11/30 is 1.7 w/ hyperkalemia, hyponatremia, chemistries suggestive of anion gap metabolic acidosis -daily bmp -hold ACEI -fluids as below Present on Admission?: Yes (2) Electrolyte and fluid disorder: see above for details of electrolyte issues -recheck bmp 1400 ordered >> if AG unchanged or if bicarb not improving, needs ABG and lactate and blood cultures (elevated ESR and leukocytosis noted) >>need to understand indication/ rationale for cellcept and look to reduce it gi isabel ongoing diarrhea>pls get last OP note from Dr Snow -given low EF and need for IVF, ordered CXR -changed IVF to D5W w/ 100 mEq/L sodium bicarbonate same rate Present on Admission?: Yes (3) Hypertension: SBP in 150-180s since arrival >> goal 140-150s -cont OP metoprolol -agree w/ holding low dose ACEI -see IVF plan above - new IVF should promote less HTN Present on Admission?: Yes History of Present Illness Reason for Consultation: CEDRIC and electrolyte disorders Requesting Physician: Dr Yin Attending Physician: Mamadou Peters MD History of Present Illness 77 y/o F was admitted overnight for inpatient mgt of vomiting, diarrhea, generalized weakness leading to CEDRIC and electrolyte abnormalities for which I am asked to see her. 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 OP labs yesterday showed K of 6 for which she was sent to hospital along above ongoing concerns. Her presenting sNa was 129, K 5.2, creat1.7, C02 14, WBC 14, ESR 79. her lisinopril was held at admission. she was started last evening on D5NS at 75 mL / hr after a 500 mL bolus in ER. This AM her creatinine is 1.6, bicarb 13; chloride 106. Her UA has no white cells, LE/ nitrites, or bacteria. Allergies Allergy/AdvReac Type Severity Reaction Status Date / Time No Known Allergies Allergy Verified 10/11/18 17:23 Home Medications Home Medications Medication Instructions Recorded Confirmed Type Ivig 1 dose IV MONTHLY 08/03/18 11/30/18 History allopurinol 100 mg PO QAM 08/03/18 11/30/18 History cholecalciferol (vitamin D3) 2,000 unit PO BID 08/03/18 11/30/18 History [Vitamin D3] cyanocobalamin (vitamin B-12) 1,000 mcg IM MONTHLY 08/03/18 11/30/18 History duloxetine [Cymbalta] 60 mg PO HS 08/03/18 11/30/18 History gabapentin [Neurontin] 600 mg PO TID 08/03/18 11/30/18 History levothyroxine 88 mcg PO QAM 08/03/18 11/30/18 History mycophenolate mofetil [CellCept] 1,000 mg PO BID 08/03/18 11/30/18 History acetaminophen [Tylenol Extra 500 mg PO TID 10/11/18 11/30/18 History Strength] aspirin [Ecotrin Low Strength] 81 mg PO QAM 10/11/18 11/30/18 History atorvastatin 40 mg PO HS 10/11/18 11/30/18 History clopidogrel 75 mg PO QAM 10/11/18 11/30/18 History Citrucel (sucrose) 1 tbsp PO BID #0 g 10/19/18 11/30/18 Rx lisinopril 2.5 mg PO DAILY 11/30/18 11/30/18 History metoprolol succinate 25 mg PO DAILY 11/30/18 11/30/18 History nitroglycerin [Nitrostat] 0.4 mg SUBLINGUAL UD PRN 11/30/18 11/30/18 History Patient History Medical History History of SC (myocardial infarction) Coronary artery disease CHF (congestive heart failure) Severe sepsis History of hysterectomy (Chronic) Inflammatory arthritis (Chronic) Gout (Chronic) Inclusion body myositis (Chronic) 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 (Chronic) HLD (hyperlipidemia) (Chronic) Neuropathy (Chronic) Surgical History S/P cardiac cath Family History Other Coronary heart disease Social History Preferred Language: Wolof Communication Ability: Effective 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: No Beliefs That Will Affect Care: None Current Living Situation: Alone Other Information That Helps Us Care for You: No Feels Safe at Home: Yes Safety Concerns: Feels Safe At This Time Smoking Status: Never smoker Second Hand Exposure: No ; Hx Alcohol Use: No Hx Substance Use: No Review of Systems Review of Systems: All systems reviewed & are unremarkable except as noted in HPI & below ROS limited by pt psychomotor slowing, slow speech Constitutional: + fatigue and + weakness Eyes: no worsening vision Ear, Nose, Mouth, Throat: + dry mouth (extreme and per pt limits speech q AM) Respiratory: no cough and no dyspnea Cardiovascular: no chest pain, no palpitations and no edema Gastrointestinal: as per Subjective / HPI and + diarrhea/loose stools (chronic, worse recently); no vomiting Genitourinary: no dysuria, no difficulty urinating and no urinary frequency Musculoskeletal: + muscle weakness Integumentary: no rash and no non-healing lesions Neurologic: as per Subjective / HPI, + generalized weakness and + paresthesia Endocrine: + fatigue Hematologic / Lymphatic: no easy bleeding Physical Exam Constitutional: well developed and + thin on RA, a& o x 3 but marked psychomotor slowing even a few minutes after being wakend from sleep Eyes: EOM intact bilaterally ENMT: Ears: no external ear abnormality Nose: no external nose abnormality Mouth: + dry oral mucous membranes Neck: no nuchal rigidity Respiratory: normal respiratory effort Auscultation: lungs clear to auscultation bilaterally and + diminished lung sounds Cardiovascular: RRR, no murmur, no edema Gastrointestinal (Abdomen): Inspection/Auscultation: + abdomen distended and normal bowel sounds Percussion/Palpation: abdomen soft; abdomen nontender Musculoskeletal: Extremities: strength 5/5 throughout nicholson, no tremor Skin: no rashes, warm and dry Neurologic: nicholson, fluent speech, no tremor Psychiatric: A+Ox3, euthymic affect Motor Behavior: + psychomotor retardation Results & Data Vital Signs (Past 12 Hours) Vital Signs Temp Pulse Pulse Resp BP BP Pulse Ox 11/30/18 07:34 36.7 C 75 14 182/90 H 11/30/18 06:54 70 16 150/72 H 96 11/30/18 06:00 70 16 151/76 H 95 11/30/18 04:21 81 20 171/82 H 98 11/30/18 01:55 36.3 C L 73 18 124/81 100 Laboratory Results Abnormal lab results 11/30/18 11/30/18 11/30/18 Range/Units 02:40 02:40 04:10 WBC 13.70 H (4.8-10.8) K/uL RDW Std Deviation 47.3 H (36.4-46.3) fL RDW Coeff of Danya 15.2 H (11.5-14.5) % Plt Count 501 H (130-400) K/uL Immature Gran # (Auto) 0.04 H (0.00-0.02) K/uL Neut # (Auto) 11.37 H (1.4-6.5) K/uL [place] # (Auto) 0.85 H (0.11-0.59) K/uL ESR (0-21) mm/hr Sodium 129 L (136-145) mmol/L Potassium (3.5-5.1) mmol/L Carbon Dioxide 14 L (21-32) mmol/L Anion Gap 13.0 H (3-11) BUN 56 H (7-18) mg/dl Creatinine 1.66 H (0.6-1.2) mg/dl BUN/Creatinine Ratio 33.5 H (10-20) Glucose 137 H (70-99) mg/dl Calcium 10.8 H (8.5-10.1) mg/dl Phosphorus (2.5-4.9) mg/dl Alkaline Phosphatase 151 H (45-117) U/L C-Reactive Protein (0-0.29) mg/dl Total Protein 9.7 H (6.4-8.2) gm/dl Globulin 5.2 H (2.5-4.0) gm/dl Urine Appearance Cloudy A (Clear) Urine Protein Trace H (Negative) U Hyaline Cast (Auto) 5-10 H (0-5) /lpf U Epithel Cells (Auto) 5-10 H (0-5) /lpf 11/30/18 11/30/18 11/30/18 Range/Units 04:19 07:42 07:42 WBC (4.8-10.8) K/uL RDW Std Deviation (36.4-46.3) fL RDW Coeff of Danya (11.5-14.5) % Plt Count (130-400) K/uL Immature Gran # (Auto) (0.00-0.02) K/uL Neut # (Auto) (1.4-6.5) K/uL [place] # (Auto) (0.11-0.59) K/uL ESR 79 H (0-21) mm/hr Sodium 131 L (136-145) mmol/L Potassium 5.2 H (3.5-5.1) mmol/L Carbon Dioxide 13 L (21-32) mmol/L Anion Gap 12.0 H (3-11) BUN 60 H (7-18) mg/dl Creatinine 1.55 H (0.6-1.2) mg/dl BUN/Creatinine Ratio 38.6 H (10-20) Glucose 154 H (70-99) mg/dl Calcium (8.5-10.1) mg/dl Phosphorus 5.9 H (2.5-4.9) mg/dl Alkaline Phosphatase (45-117) U/L C-Reactive Protein 1.30 H (0-0.29) mg/dl Total Protein (6.4-8.2) gm/dl Globulin (2.5-4.0) gm/dl Urine Appearance (Clear) Urine Protein (Negative) U Hyaline Cast (Auto) (0-5) /lpf U Epithel Cells (Auto) (0-5) /lpf Diagnostic Findings CT chest/abd/pelvis w/ con OCTOBER & CT CHEST: No focal thyroid nodule. Prominent and mildly enlarged paratracheal, AP window, subcarinal and hilar lymph nodes are seen measuring up to 10 mm in short axis. M oderate cardiomegaly without pericardial effusion. Coronary arterial calcifications are noted. Thoracic aorta is normal in both course and caliber without aneurysm or dissection. Mixed plaque formation of the thoracic aortic arch and proximal great vessels. Calcified plaque of the carotid bulbs, partially imaged. The opacified pulmonary arterial tree appears unremarkable. Small layering bilateral pleural effusions with dependent subsegmental bibasilar consolidation. There is no pneumothorax. There is mild intralobular septal thickening about the lung bases. Moderate bilateral bronchial wall thickening. There are no suspicious pulmonary nodules or masses identified. Central airways appear to be patent. Soft tissues and breast parenchyma are within normal limits. Degenerative changes of the shoulders and spine. There are no suspicious lytic or blastic bony lesions. CT ABDOMEN/PELVIS: No pneumatosis or pneumoperitoneum. Spleen measures the upper limits of normal at 12.8 cm. Partial distention of the gallbladder with mild nonspecific pericholecystic edema, there is no pancreatic ductal dilation identified. Equivocal cholelithiasis noted about the gallbladder fundus. Common bile duct m easures 7 mm transversely, within normal limits for patient age. No significant intrahepatic biliary ductal dilation. Pancreas and adrenal glands appear unremarkable. Liver appears to be within normal limits. Mild periportal edema. 1.4 cm cyst of the inferior pole right kidney. No renal or ureteral calculi or obstructive uropathy. Urinary bladder wall thickening with perivesicular stranding. This structure. Trace free pelvic fluid. No adnexal mass lesions. Moderate mixed plaque formation of the aorta without aneurysm. No adenopathy identified. Small hiatal hernia with mild wall thickening of the distal esophagus. No bowel obstruction. Colonic diverticulosis. 10 mm soft tissue nodule of the left upper quadrant abdomen is suggestive of a splenule. Terminal ileum is unremarkable. Normal appendix. There is mild wall thickening noted throughout the distal sigmoid and rectum. Mild associated pericolonic stranding. Tiny fat filled periumbilical hernia. No suspicious bony lesions. Degenerative changes of the spine, pelvis and hips. IMPRESSION: 1. Mild nonspecific mediastinal and hilar adenopathy. 2. Cardiomegaly with small bilateral pleural effusions and mild pulmonary edema. 3. Dependent subsegmental bibasilar consolidation favors atelectasis. 4. No bowel obstruction, pneumatosis or pneumoperitoneum. 5. Mild wall thickening of the distal sigmoid colon and rectum with trace free pelvic fluid and mild pericolonic stranding. Findings are suspicious for a mild nonspecific proctocolitis. 6. Mild wall thickening about the urinary bladder. Correlate with urinalysis. 7. Nonspecific pericholecystic edema with equivocal cholelithiasis. This finding could be correlated with right upper quadrant ultrasound. (1) Hypertension Hypertension type: unspecified Qualified Code(s): I10 - Essential (primary) hypertension
[2018-11-30] MEDS ORDERED: METHYLCELLULOSE POWDER 454 GM JAR PO SCH (09:00)
--- NOTE | 2018-11-30 09:43 | XRay Report ---
XR chest 1V portable CLINICAL HISTORY: a/w dehydration Getting ivf; EF 35% -check volume COMPARISON STUDY: 10/14/2018 FINDINGS: The bones soft tissues and hemidiaphragms are normal. The cardiomediastinal silhouette is n ormal. The lungs are clear. The pulmonary vasculature is normal. IMPRESSION: Negative chest. The above report was generated using voice recognition software. It may contain grammatical, syntax or spelling errors. Electronically signed by: Elton Millan M.D. 11/30/2018 9:42 AM
[2018-11-30] MEDS: SODIUM BICARBONATE 8.4% 100 MEQ in DEXTROSE 5% 1,000 ML IV SCH (10:11)
--- NOTE | 2018-11-30 11:04 | Hospitalist Progress Note ---
Date of Service November 30, 2018 Assessment & Plan (1) Hyponatremia: Generalized weakness, nausea, vomiting, diarrhea Hyponatremia Acute kidney Injury Underweight with BMI 18.7 -This is a 77-year-old female who presents with generalized weakness, nausea, vomiting and diarrhea -recent hospitalization for urinary tract infection in October 2018 but admission urine analysis is negative -patient reports poor oral intake at home, weight loss - patient is 49.3 kg on this admission but was around 55 kg in October 2018 -will give antiemetics as needed -dietary consultation and start Boost supplements with Meals -advance diet from clear liquids as tolerated -serum sodium increasing from 129 to 131 on IV fluids -patient was switched from normal saline to sodium bicarbonate as per nephrology consult, trend serum bicarbonate with the serum sodium Acute kidney injury -Baseline creatinine around 1, presents with creatinine of 1.66 with elevated BUN suggestive of pre-renal causes of acute kidney injury likely from dehydration -hold lisinopril -creatinine downtrending to 1.55 History of coronary artery disease, status post history of ST elevated myocardial infarction in July 2018 and non-ST elevated myocardial infarction in last admission October thought to be from sepsis. Chronic systolic congestive heart failure -EF was 45% in July 2018. Recent repeat echocardiogram on 10/12/2018 showed EF of 30-35% -History of PCI to RCA and left circumflex with drug-eluting stents -can resume lisinopril when creatinine returns to baseline -no chest pain and troponin negative x 2 -continue metoprolol 25 mg home dose, aspirin and plavix 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 -TSH is normal and likely euthyroid, will check Total T4 -Continue Synthroid. History of inclusion body myositis -The patient is following with rheumatology at [facility] - The patient is on CellCept and monthly IV gammaglobulin. -Last admission CellCept dose was cut back to 5 mg b.i.d. thought to be contributing for diarrhea, but after discharge she was back on her usual dose of 10 mg p.o. b.i.d. -Currently, will hold CellCept for now History of Gout -no gout flares, continue home dose allopurinol. Deep venous thrombosis prophylaxis, sequential compression devices for now. Subjective Patient seen and examined at bedside. Some cough. she reports that cough had started since before the hospital presentation. Otherwise, lungs sound clear and no shortness of breath during exam. denies chest pain. denies palpitations. no dizziness or lightheadedness at this time. she reports general poor appetite. however, she was able to take her breakfast. she was on IV fluids at 100 cc/hr. will slow down IV fluids to 50 cc/hr to avoid fluid overload in a patient known to have low ejection fraction. will get a 2 view chest X ray. nephrology is following the patient. on telemetry. will get PT/OT evaluation Physical Exam Constitutional: comfortable Eyes: PERRL, conjunctivae normal, anicteric sclerae EOM intact bilaterally ENMT: external ear and nose normal, oropharynx normal Neck: trachea midline, no thyromegaly normal visual inspection Respiratory: normal respiratory effort, lungs clear to auscultation + cough Cardiovascular: Rate/Rhythm: regular rate and regular rhythm Gastrointestinal (Abdomen): normal bowel sounds, soft, nontender, no hepatosplenomegaly Musculoskeletal: Head/Neck/Chest: normocephalic and head atraumatic Psychiatric: A+Ox3, euthymic affect Results & Data Vital Signs (Past 12 Hours) Vital Signs Temp Pulse Pulse Resp BP BP Pulse Ox 11/30/18 10:51 36.8 C 73 17 124/71 96 11/30/18 07:34 36.7 C 75 14 182/90 H 11/30/18 06:54 70 16 150/72 H 96 11/30/18 06:00 70 16 151/76 H 95 11/30/18 04:21 81 20 171/82 H 98 11/30/18 01:55 36.3 C L 73 18 124/81 100
[2018-11-30 13:46] LABS: BUN Creatinine Ratio 42.2 (10-20); Creatinine Clr Calc Pharmacy 25.4 ml/min; Est GFR (African American) 40.9; Est GFR (Non-African American) 35.3; Potassium 5.2 mmol/L (3.5-5.1)
--- NOTE | 2018-11-30 13:50 | XRay Report ---
XR chest 2V routine CLINICAL HISTORY: cough, has gotten IV fluids, rule out infiltrates dyspnea. Cough. COMPARISON STUDY: 11/30/2018 9:33 AM FINDINGS: Lungs remain clear. Diaphragms are smooth. No significant cardiac enlargement. IMPRESSION: Negative chest. The above report was generated using voice recognition software. It may contain grammatical, syntax or spelling errors. Electronically signed by: Elton Millan M.D. 11/30/2018 1:49 PM
[2018-11-30] MEDS: DULOXETINE HCL 30 MG CAP PO SCH (20:10)
[2018-11-30] MEDS: ATORVASTATIN 40 MG TAB PO SCH (20:11)
[2018-11-30] MEDS: METHYLCELLULOSE POWDER 454 GM JAR PO SCH (20:14)
[2018-12-01] MEDS ORDERED: SODIUM CHLORIDE 0.9% 500 ML IV SCH (01:00)
[2018-12-01] MEDS: LEVOTHYROXINE SODIUM 88 MCG TABLET PO SCH (05:46)
--- NOTE | 2018-12-01 07:21 | Nephrology Progress Note ---
Date of Service December 01, 2018 Assessment & Plan (1) Acute kidney injury: baseline creatinine 0.9-1.0; presenting creatinine 11/30 is 1.7 w/ hyperkalemia, hyponatremia, chemistries suggestive of anion gap metabolic acidosis; mild hyponatremia persists, hyperkalemia resolved, still w/ low bicarb and now ner noormal anion gap -daily bmp > creatinine plateau'd for now at 1.4 -hold ACEI -fluids as below (2) Electrolyte and fluid disorder: see above for details of electrolyte issues blood cultures and bland urine sediment (elevated ESR and leukocytosis noted) >>agree w/ holdnnig cell cept- has had none since admission -started on steroids today for possible chronnic adrenal insufficiency after steroids tapered 4 mos back -given low EF and need for IVF, ordered CXR yesterday am which was clear -on D5W w/ 150 mEq/L sodium bicarbonate at 80 ml/min > ran at this for most of day; will lower to 50 ml/hr ON (3) Hypertension: SBP in 150-180s since arrival >> goal 140-150s but now w/ hypotension -cont OP metoprolol -agree w/ holding low dose ACEI -see IVF plan above Subjective seen on rounds this am at 0830 approx w/ daughter Yulisa at bedside. pt last bm was 11/29. no MMF since admission. daugther worried about 30 lb wt loss in 5 mos--epic shows 30lb wt loss since Mar 2018, 35 past 12 mos; 15 lb wt loss since july. SBP were quite high on presentation but yesterday low normal, today low -- in 80s systolic. had 250 cc bolus NS ON. ongoing poor appetite and N, generalized weakness; no sob so far w/ IVF, no orthopnea or cough; denies voiding concerns. Review of Systems Review of Systems: All systems reviewed & are unremarkable except as noted in HPI & below Physical Exam Constitutional: well developed and + thin Eyes: EOM intact bilaterally ENMT: Ears: no external ear abnormality Nose: no external nose abnormality Mouth: + dry oral mucous membranes Neck: no nuchal rigidity Respiratory: normal respiratory effort Auscultation: lungs clear to auscultation bilaterally and + diminished lung sounds Cardiovascular: RRR, no murmur, no edema Gastrointestinal (Abdomen): Inspection/Auscultation: + abdomen distended and normal bowel sounds Percussion/Palpation: abdomen soft; abdomen nontender Musculoskeletal: Extremities: strength 5/5 throughout Skin: no rashes, warm and dry Psychiatric: A+Ox3, euthymic affect Motor Behavior: + psychomotor retardation Results & Data Vital Signs (Past 12 Hours) Vital Signs Temp Pulse Pulse Resp BP BP Pulse Ox 12/01/18 07:14 36.9 C 80 17 84/51 L 96 12/01/18 05:49 105/51 L 12/01/18 04:04 92/53 L 12/01/18 03:03 36.6 C 75 16 100/56 L 94 12/01/18 01:38 102/52 L 12/01/18 00:53 89/54 L 11/30/18 23:28 36.7 C 78 16 92/48 L 94 11/30/18 22:20 76 Laboratory Results Abnormal lab results 11/30/18 11/30/18 11/30/18 Range/Units 07:42 07:42 13:12 ESR 79 H (0-21) mm/hr Sodium 131 L 130 L (136-145) mmol/L Potassium 5.2 H (3.5-5.1) mmol/L Carbon Dioxide 13 L 13 L (21-32) mmol/L Anion Gap 12.0 H (3-11) BUN 60 H 60 H (7-18) mg/dl Creatinine 1.55 H 1.42 H (0.6-1.2) mg/dl BUN/Creatinine Ratio 38.6 H 42.2 H (10-20) Glucose 154 H 138 H (70-99) mg/dl Phosphorus 5.9 H (2.5-4.9) mg/dl C-Reactive Protein 1.30 H (0-0.29) mg/dl (1) Hypertension Hypertension type: unspecified Qualified Code(s): I10 - Essential (primary) hypertension
[2018-12-01 08:17] LABS: BUN Creatinine Ratio 38.4 (10-20); Calcium 9.6 mg/dl (8.5-10.1); Creatinine Clr Calc Pharmacy 21.3 ml/min; Est GFR (African American) 32.9; Est GFR (Non-African American) 28.4; Potassium 4.8 mmol/L (3.5-5.1)
[2018-12-01] MEDS: METHYLCELLULOSE POWDER 454 GM JAR PO SCH ×2 (09:03→20:58)
[2018-12-01] MEDS: SODIUM BICARBONATE 8.4% 100 MEQ in DEXTROSE 5% 1,000 ML IV SCH (09:04)
[2018-12-01] MEDS: CLOPIDOGREL BISULFATE 75 MG TAB PO SCH (09:16)
[2018-12-01] MEDS: ALLOPURINOL 100 MG TAB PO SCH (09:16)
[2018-12-01] MEDS: GABAPENTIN 600 MG TAB PO SCH ×3 (09:16→21:13)
[2018-12-01] MEDS: CHOLECALCIFEROL 1,000 UNITS TAB PO SCH ×2 (09:16→21:13)
[2018-12-01] MEDS: ASPIRIN 81 MG ECTAB PO SCH (09:16)
[2018-12-01] MEDS ORDERED: HYDROCORTISONE SOD SUCCINATE 100 MG/2 ML VIAL IV ONE (09:43)
--- NOTE | 2018-12-01 09:45 | Hospitalist Progress Note ---
Date of Service December 01, 2018 Assessment & Plan (1) Acute kidney injury: Serum creatinine at time of admission was 1.66 compared to recent baseline of 0.8-1.0. Acute kidney injury probably secondary to volume depletion from GI fluid losses. Does not appear to be septic. Consider adrenal insufficiency. Nephrology consulted. Receiving IV fluids. Creatinine today = 1.7. (2) Hyperkalemia: Serum potassium at time of admission was 5.2. Holding lisinopril. Consider adrenal insufficiency. Potassium today = 4.8. Follow. (3) Hyponatremia: Serum sodium 129 at time of admission. Experiencing nausea, vomiting, diarrhea. Hyponatremia could be secondary to GI letter light losses. Consider adrenal insufficiency. Sodium today = 130. Follow. (4) Hypotension: Systolic blood pressures overnight as low as 89 and systolic BP this morning 84. Experiencing nausea, vomiting, diarrhea. Receiving IV fluids for dehydration. No signs/symptoms of GI bleeding. Does not appear to be septic. Was on chronic steroids until about 4 months ago; consider renal insufficiency. Continue IV fluids. Start IV hydrocortisone. (5) Vomiting: Nausea vomiting improved. Consider adverse reaction to mycophenolate. Will need further evaluation if symptoms recur. (6) Diarrhea: Check stool for C. difficile. Will also check for routine enteric pathogens and CMV. (7) Coronary artery disease: STEMI with PCI's of RCA and left circumflex with drug-eluting stents July 2018. No anginal symptoms. No CHF. Continue aspirin, clopidogrel, metoprolol succinate, atorvastatin. (8) Cardiomyopathy: History of ischemic cardiomyopathy. LVEF 30-35% per echo 10/12/2018. No evidence of CHF clinically or radiographically. Holding lisinopril secondary to hypotension, acute kidney injury, hyperkalemia. Continue metoprolol succinate with hold parameters. (9) Hypertension: History of hypertension, but blood pressure is now low. Lisinopril being held because of acute kidney injury and hyperkalemia. Continue metoprolol with hold parameters. (10) 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: TSH normal. Continue levothyroxine. 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 Hold due to CEDRIC and diarrhea. Outpt Rheum records requested for background info. (12) Malnutrition of moderate degree: Has lost about 20 lbs. Poor oral intake. Consult blending coordinator. (13) DVT prophylaxis: SCD's ordered. Ambulate. (14) Discharge planning issues: Discharge disposition to be determined- probable DC to home. Internal Medicine follow-up with Dr. Vaengas. Subjective Recheck for multiple problems. Patient seen in their room around 08:40. Daughter visiting. Still feels weak. No fever or chills. Blood pressure is low this morning. Patient complains of hoarseness. Occasional nonproductive cough. No further nausea or vomiting. Loose stool this morning. Nursing reports no urine output overnight. Review of Systems: Constitutional- as noted above. Cardiac- no chest pain. Pulmonary- as noted above. GI- as noted above - no urinary symptoms. Otherwise, as noted above. Physical Exam Constitutional: no acute distress Respiratory: no respiratory distress Auscultation: lungs clear to auscultation bilaterally Cardiovascular: Rate/Rhythm: regular rate and regular rhythm Heart Sounds: no gallop, no murmur and no cardiac rub Vessels: no JVD Extremities: no calf tenderness and no edema Gastrointestinal (Abdomen): normal bowel sounds, soft, nontender, no hepatosplenomegaly Musculoskeletal: Extremities: no cyanosis Skin: no rashes, warm and dry Psychiatric: Orientation: alert and oriented x 3 Results & Data Vital Signs (Past 12 Hours) Vital Signs Temp Pulse Pulse Resp BP BP Pulse Ox 12/01/18 07:14 36.9 C 80 17 84/51 L 96 12/01/18 05:49 105/51 L 12/01/18 04:04 92/53 L 12/01/18 03:03 36.6 C 75 16 100/56 L 94 12/01/18 01:38 102/52 L 12/01/18 00:53 89/54 L 11/30/18 23:28 36.7 C 78 16 92/48 L 94 11/30/18 22:20 76 Laboratory Results Laboratory Results - last 24 hr 11/30/18 11/30/18 12/01/18 23:33 Unknown 07:26 Sodium 130 L Potassium 4.9 4.8 Chloride 104 Carbon Dioxide 15 L Anion Gap 11.0 BUN 65 H Creatinine 1.70 H Est Cr Clr Drug Dosing 21.3 Est GFR ( Amer) 32.9 Est GFR (Non-Af Amer) 28.4 BUN/Creatinine Ratio 38.4 H Glucose 127 H Calcium 9.6 Stl C. diff Tox B Gene Negative Cdiff Gene Diagnostic Findings PORTABLE CHEST X-RAY FINDINGS: Lung volumes are normal. Lungs are clear. There is no pneumothorax or pleural effusion. Cardiac size is normal. Mediastinal contours are normal. There is no evidence for pulmonary edema. IMPRESSION: No acute cardiopulmonary findings. Electronically signed by: Kemal Anne M.D. 12/01/2018 10:48 AM (1) Vomiting Nausea presence: unspecified Vomiting Intractability: non-intractable Vomiting type: unspecified Qualified Code(s): R11.10 - Vomiting, unspecified (2) Diarrhea Diarrhea type: unspecified type Qualified Code(s): R19.7 - Diarrhea, unspecified (3) Hypertension Hypertension type: unspecified Qualified Code(s): I10 - Essential (primary) hypertension
[2018-12-01] MEDS ORDERED: HYDROCORTISONE SOD 100 MG in SYRINGE 0 ML IV STA (09:46)
--- NOTE | 2018-12-01 10:50 | XRay Report ---
XR chest 1V portable CLINICAL HISTORY: Cough. COMPARISON STUDY: Chest CT October 17, 2018. Chest radiograph November 30, 2018. FINDINGS: Lung volumes are normal. Lungs are clear. There is no pneumothorax or pleural effusion. Car diac size is normal. Mediastinal contours are normal. There is no evidence for pulmonary edema. IMPRESSION: No acute cardiopulmonary findings. Electronically signed by: Kemal Anne M.D. 12/01/2018 10:48 AM
[2018-12-01] MEDS: METOPROLOL SUCC 25MG EXT REL TAB PO SCH (11:19)
[2018-12-01] MEDS: SODIUM BICARBONATE 8.4% 150 MEQ in DEXTROSE 5% 1,000 ML IV SCH ×2 (12:37→23:35)
[2018-12-01] MEDS: HYDROCORTISONE SOD 50 MG in SYRINGE 0 ML IV SCH ×2 (14:53→21:13)
[2018-12-01] MEDS: ATORVASTATIN 40 MG TAB PO SCH (21:13)
[2018-12-01] MEDS: DULOXETINE HCL 30 MG CAP PO SCH (21:13)
[2018-12-02] MEDS: HYDROCORTISONE SOD 50 MG in SYRINGE 0 ML IV SCH ×2 (06:06→14:47)
[2018-12-02] MEDS: LEVOTHYROXINE SODIUM 88 MCG TABLET PO SCH (06:06)
[2018-12-02 06:14] LABS: pH VBG 7.46 (7.36-7.41)
[2018-12-02 06:30] LABS: Hematocrit (blood only) 23.6 % (37-47); Hemoglobin 8.2 g/dL (12.0-16.0); Mean Corpuscular Hgb Conc 34.7 g/dL (32-36); Mean Corpuscular Volume 84.3 fL (80-100); Mean Platelet Volume 9.5 fL (7.4-10.4); Platelet Count 315 K/uL (130-400); RDW Coefficient of Variation 15.1 % (11.5-14.5); RDW Standard Deviation 46.7 fL (36.4-46.3); White Blood Count 14.68 K/uL (4.8-10.8)
[2018-12-02 06:57] LABS: Alanine Aminotransferase 11 U/L (12-78); Albumin Globulin Ratio 0.8 (0.9-2); Albumin Level 2.8 gm/dl (3.4-5.0); Alkaline Phosphatase 97 U/L (45-117); Aspartate Aminotransferase 13 U/L (15-37); BUN Creatinine Ratio 63.6 (10-20); Bilirubin Direct < 0.1 mg/dl (0-0.2); Bilirubin,Total 0.3 mg/dl (0.2-1); Blood Urea Nitrogen 62 mg/dl (7-18); Calcium 8.7 mg/dl (8.5-10.1); Carbon Dioxide 25 mmol/L (21-32); Chloride 100 mmol/L (98-107); Creatine Kinase 21 U/L (26-192); Creatinine Clr Calc Pharmacy 37.7 ml/min; Est GFR (African American) 64.8; Est GFR (Non-African American) 55.9; Globulin 3.6 gm/dl (2.5-4.0); Glucose 128 mg/dl (70-99); Potassium 3.6 mmol/L (3.5-5.1); Sodium 133 mmol/L (136-145); Total Protein 6.4 gm/dl (6.4-8.2)
--- NOTE | 2018-12-02 07:15 | XRay Report ---
XR chest 1V portable CLINICAL HISTORY: cardiomyopathy, acute renal insufficiency COMPARISON STUDY: 12/01/2018 FINDINGS: The heart is the upper limits of normal in size. There is no failure. There is no focal pul monary consolidation. There are no pleural effusions.[ IMPRESSION: No active disease in the chest. Electronically signed by: Ignacio Jansen M.D. 12/02/2018 7:14 AM
--- NOTE | 2018-12-02 08:28 | Ultrasound Report ---
US gallbladder CLINICAL HISTORY: nausea, vomiting COMPARISON STUDY: CT of the abdomen and pelvis October 17, 2018. FINDINGS: Liver is sonographically normal. There is no biliary ductal dilatation. The common bile erik t measures 6 mm in caliber. The pancreatic body is normal. The head and tail are obscured by overlyin g bowel gas. There is layering nonshadowing material within the gallbladder. The gallbladder is not d istended. There was no sonographic Lynn sign. No pericholecystic fluid is noted. No gallbladder wal l thickening is present. There is no right hydronephrosis. IMPRESSION: 1. Layering nonshadowing material within the gallbladder which may reflect stones or sludge. No evide nce of acute cholecystitis. 2. No biliary ductal dilatation. Electronically signed by: Kemal Anne M.D. 12/02/2018 8:27 AM
[2018-12-02] MEDS: SODIUM BICARBONATE 8.4% 150 MEQ in DEXTROSE 5% 1,000 ML IV SCH (09:14)
[2018-12-02] MEDS: METHYLCELLULOSE POWDER 454 GM JAR PO SCH ×2 (09:15→21:38)
[2018-12-02] MEDS: GABAPENTIN 600 MG TAB PO SCH ×3 (09:15→21:40)
[2018-12-02] MEDS: ALLOPURINOL 100 MG TAB PO SCH (09:16)
[2018-12-02] MEDS: CLOPIDOGREL BISULFATE 75 MG TAB PO SCH (09:16)
[2018-12-02] MEDS: ASPIRIN 81 MG ECTAB PO SCH (09:16)
[2018-12-02] MEDS: METOPROLOL SUCC 25MG EXT REL TAB PO SCH (09:16)
[2018-12-02] MEDS: CHOLECALCIFEROL 1,000 UNITS TAB PO SCH ×2 (09:16→21:39)
--- NOTE | 2018-12-02 16:18 | Nephrology Progress Note ---
Date of Service December 02, 2018 Assessment & Plan (1) Acute kidney injury: baseline creatinine 0.9-1.0; presenting creatinine 11/30 is 1.7 w/ hyperkalemia, hyponatremia, chemistries suggestive of anion gap metabolic acidosis; mild hyponatremia persists, hyperkalemia and low bicarb resolved w/ IVF >> suspect role for diarrhe ahere -daily bmp > creatinine back to baseline as of today -hold ACEI -fluids as below (2) Electrolyte and fluid disorder: see above for details of electrolyte issues blood cultures and bland urine sediment (elevated ESR and leukocytosis noted) >>agree w/ holdnig cell cept- has had none since admission -started on steroids 12/01 for possible chronic adrenal insufficiency after OPsteroids tapered 4 mos back -given low EF and need for IVF, ordered CXR yesterday am which was clear; clear again today -stopped bicarb gtt today since she is taking po better; issues may yet recur given increase in stool output (3) Hypertension: SBP in 150-180s since arrival >> goal 140-150s but then w/ hypotension 11/30- -cont OP metoprolol -agree w/ holding low dose ACEI -see IVF plan above -on steroids Subjective seen on rounds this AM at about 0830; c/o cough; no sob; hungry/thirsty - trying to eat; no edema, no voiding c/o; D has recurred - 4 bm + past 24 hr Review of Systems Review of Systems: All systems reviewed & are unremarkable except as noted in HPI & below Physical Exam Constitutional: well developed and + thin on RA Eyes: EOM intact bilaterally ENMT: Ears: no external ear abnormality Nose: no external nose abnormality Mouth: + dry oral mucous membranes Neck: no nuchal rigidity Respiratory: normal respiratory effort Auscultation: + diminished lung sounds and + crackles (L base) Cardiovascular: RRR, no murmur, no edema Gastrointestinal (Abdomen): Inspection/Auscultation: + abdomen distended and normal bowel sounds Percussion/Palpation: abdomen soft; abdomen nontender Musculoskeletal: Extremities: strength 5/5 throughout PCP joint deformities Skin: no rashes, warm and dry Neurologic: nicholson, fluent speech, no tremor Psychiatric: A+Ox3, euthymic affect Motor Behavior: + psychomotor retardation Results & Data Vital Signs (Past 12 Hours) Vital Signs Temp Pulse Pulse Resp BP Pulse Ox 12/02/18 15:18 36.9 C 69 19 110/55 L 95 12/02/18 15:00 77 12/02/18 11:57 36.9 C 79 22 124/58 L 96 (1) Hypertension Hypertension type: unspecified Qualified Code(s): I10 - Essential (primary) hypertension
--- NOTE | 2018-12-02 19:31 | Hospitalist Progress Note ---
Date of Service December 02, 2018 Assessment & Plan (1) Acute kidney injury: Serum creatinine at time of admission was 1.66 compared to recent baseline of 0.8-1.0. Acute kidney injury probably secondary to volume depletion from GI fluid losses. Does not appear to be septic. Consider adrenal insufficiency. Nephrology consulted. Receiving IV fluids. Creatinine today = 0.97. (2) Hyperkalemia: Serum potassium at time of admission was 5.2. Holding lisinopril. Consider adrenal insufficiency. Metabolic acidosis contributing factor. Potassium today = 3.6. Follow. (3) Hyponatremia: Serum sodium 129 at time of admission. Experiencing nausea, vomiting, diarrhea. Hyponatremia could be secondary to GI letter light losses. Consider adrenal insufficiency. Sodium today = 133. Follow. (4) Hypotension: Systolic blood pressures as low as 84 morning of 12/01. Experiencing nausea, vomiting, diarrhea. Receiving IV fluids for dehydration. No signs/symptoms of GI bleeding. Does not appear to be septic. Was on chronic steroids until about 4 months ago; consider renal insufficiency. Received IV fluids + IV hydrocortisone. Blood pressures improved. (5) Vomiting: Nausea vomiting improved. Consider adverse reaction to mycophenolate. Will need further evaluation if symptoms recur. (6) Diarrhea: Stool neg for C. difficile. Also checking for routine enteric pathogens and CMV. Had sigmoidoscopy in October 2018- tics, neg path. (7) Coronary artery disease: STEMI with PCI's of RCA and left circumflex with drug-eluting stents July 2018. No anginal symptoms. No CHF. Continue aspirin, clopidogrel, metoprolol succinate, atorvastatin. (8) Cardiomyopathy: History of ischemic cardiomyopathy. LVEF 30-35% per echo 10/12/2018. No evidence of CHF clinically or radiographically. Holding lisinopril secondary to hypotension, acute kidney injury, hyperkalemia. Continue metoprolol succinate with hold parameters. (9) Hypertension: History of hypertension, but blood pressures were low. Lisinopril being held because of acute kidney injury and hyperkalemia. Continue metoprolol with hold parameters. (10) 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: TSH normal. Continue levothyroxine. 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 Hold due to CEDRIC and diarrhea. Outpatient Rheum records requested for background info. (12) Malnutrition of moderate degree: Has lost about 20 lbs. Poor oral intake. Consult vp & general counsel. (13) DVT prophylaxis: SCD's ordered. Ambulate. (14) Discharge planning issues: Discharge disposition to be determined- probable DC to home. Internal Medicine follow-up with Dr. Vanegas. Subjective Recheck for multiple problems. Patient seen in their room around 1050. Family visiting. Feels better. No fever or chills. Blood pressure improved. Patient complains of persistent hoarseness. Occasional nonproductive cough. No further nausea or vomiting. Ongoing loose stools, but not as voluminous. No apparent melena or hematochezia. Review of Systems: Constitutional- as noted above. Cardiac- no chest pain. Pulmonary- as noted above. GI- as noted above - no urinary symptoms. Otherwise, as noted above. Physical Exam Constitutional: no acute distress Respiratory: no respiratory distress Auscultation: lungs clear to auscultation bilaterally Cardiovascular: Rate/Rhythm: regular rate and regular rhythm Heart Sounds: no gallop, no murmur and no cardiac rub Vessels: no JVD Extremities: no calf tenderness and no edema Gastrointestinal (Abdomen): normal bowel sounds, soft, nontender, no hepato splenomegaly Musculoskeletal: Extremities: no cyanosis Skin: no rashes, warm and dry Psychiatric: Orientation: alert and oriented x 3 Results & Data Vital Signs (Past 12 Hours) Vital Signs Temp Pulse Pulse Resp BP Pulse Ox 12/02/18 15:18 36.9 C 69 19 110/55 L 95 12/02/18 15:00 77 12/02/18 11:57 36.9 C 79 22 124/58 L 96 Laboratory Results 12/02/18 05:56 12/02/18 05:56 Diagnostic Findings PORTABLE CHEST X-RAY FINDINGS: The heart is the upper limits of normal in size. There is no failure. There is no focal pulmonary consolidation. There are no pleural effusions.[ IMPRESSION: No active disease in the chest. Electronically signed by: Ignacio Jansen M.D. 12/02/2018 7:14 AM (1) Vomiting Nausea presence: unspecified Vomiting Intractability: non-intractable Vomiting type: unspecified Qualified Code(s): R11.10 - Vomiting, unspecified (2) Diarrhea Diarrhea type: unspecified type Qualified Code(s): R19.7 - Diarrhea, unspecified (3) Hypertension Hypertension type: unspecified Qualified Code(s): I10 - Essential (primary) hypertension
[2018-12-02] MEDS: ATORVASTATIN 40 MG TAB PO SCH (21:39)
[2018-12-02] MEDS: DULOXETINE HCL 30 MG CAP PO SCH (21:40)
[2018-12-03] MEDS: LEVOTHYROXINE SODIUM 88 MCG TABLET PO SCH (05:44)
[2018-12-03 06:20] LABS: Mean Corpuscular Hgb Conc 33.3 g/dL (32-36); Mean Corpuscular Volume 85.7 fL (80-100); Mean Platelet Volume 9.8 fL (7.4-10.4); Platelet Count 333 K/uL (130-400); RDW Coefficient of Variation 15.1 % (11.5-14.5); Red Blood Count 3.15 M/uL (4.2-5.4)
[2018-12-03 06:53] LABS: BUN Creatinine Ratio 77.7 (10-20); Calcium 8.9 mg/dl (8.5-10.1); Creatinine Clr Calc Pharmacy 49.4 ml/min; Est GFR (African American) 89.9; Est GFR (Non-African American) 77.6; Potassium 3.4 mmol/L (3.5-5.1)
[2018-12-03 06:58] LABS: Ferritin 511.6 ng/ml (8-388)
[2018-12-03 07:47] LABS: Folate (Folic Acid) 4.92 ng/ml (>5.38)
--- NOTE | 2018-12-03 08:06 | Gastrointestinal Consultation ---
Date of Consultation December 03, 2018 Assessment & Plan (1) Diarrhea: Ms. Chandler has chronic diarrhea with recent stools studies, flex sig and random colon bx without cause of diarrhea. This could be medication related (Cellcept and allopurinol can cause diarrhea). Recommend: 1. Repeat stool for C-diff and culture. 2. Consider discontinuing allopurinol as it can cause diarrhea. 3. Begin Cholestyramine BID. 4. If Cholestyramine not effective then would try Imodium or Lomotil. Present on Admission?: Yes (2) Anemia: Ms. Chandler has a chronic normalcytic anemia. Today's Hb of 9 is just under her approx baseline of 9.5 - 10 (July 2018). With hx of recent NSTEMI, she is high risk for complications from sedation. Would not pursue EGD or full colonoscopy unless gross GI bleeding and dramatic drop in Hb. Present on Admission?: Yes Supervising Physician Co-Signing Physician Notes I saw and evaluated the patient. We were reconsulted for evaluation of diarrhea. The patient is a very poor historian and we were reviewing most of her outpatient and inpatient records that were available to us. She had a recent flexible sigmoidoscopy performed by Dr. ceron which showed normal- appearing mucosa and negative biopsies. She is also had stool cultures and screening for C. difficile which were negative. Of note the patient is on several medications which are associated with diarrhea these include both allopurinol and CellCept. Physical examination Disheveled appearing female but no obvious distress No abdominal discomfort noted Impression: Patient with persistent diarrhea likely related to 1 of her medications. Perhaps the patient should have her allopurinol discontinued. I would also suggest that the CellCept we discussed with whatever provider is managing at this perhaps a key punch operator. We would recommend starting Questran 4 g twice daily. Please call with any questions or concerns over the weekend, coverage to resume on Thursday. History of Present Illness Reason for Consultation: diarrhea, hem (+) stool, anemia Requesting Physician: Dr. Borrero Attending Physician: Sheldon Borrero MD History of Present Illness Ms. Diana Chandler is a 77 yr old female pt of Dr. Elizabeth Martinez with a hx of CHF, EF 30%, neuropathy, NSTEMI in October 2018 during admission for E Coli UTI sepsis. She was brought to the ED yesterday for weakness, diarrhea. She tells me that after her most recent discharge, she did not pass any BMs for about 10 days. Then she had regular, firm BMs for a few weeks, then diarrhea returned about 5 days ago. Her typical BM pattern is 4-5 loose BMs every morning then no BMs in the afternoon and evening. She believes that Imodium and fiber supplements have been helpful in the past. In fact, she is stating that taking Imodium in the past few days has helped. She also happens to mention that a physician in [place] arranges IGIV to "see if it helps," but not sure what this treatment is for. On arrival, WBC 13, Hb 9 (her approx baseline) and BUN 57 (also has been her approx baseline). GB US on arrival with stones/sludge but without acute cholecystitis or bile duct dilation. During her most recent admission, Ms. Chandler underwent flex sig on 10/18/[address] Ceron for diarrhea with findings of diverticulosis. Random colon bx was (-) for acute/chronic colitis and microscopic colitis. Allergies Allergy/AdvReac Type Severity Reaction Status Date / Time No Known Allergies Allergy Verified 10/11/18 17:23 Home Medications Home Medications Medication Instructions Recorded Confirmed Type Ivig 1 dose IV MONTHLY 08/03/18 11/30/18 History allopurinol 100 mg PO QAM 08/03/18 11/30/18 History cholecalciferol (vitamin D3) 2,000 unit PO BID 08/03/18 11/30/18 History [Vitamin D3] cyanocobalamin (vitamin B-12) 1,000 mcg IM MONTHLY 08/03/18 11/30/18 History duloxetine [Cymbalta] 60 mg PO HS 08/03/18 11/30/18 History gabapentin [Neurontin] 600 mg PO TID 08/03/18 11/30/18 History levothyroxine 88 mcg PO QAM 08/03/18 11/30/18 History mycophenolate mofetil [CellCept] 1,000 mg PO BID 08/03/18 11/30/18 History acetaminophen [Tylenol Extra 500 mg PO TID 10/11/18 11/30/18 History Strength] aspirin [Ecotrin Low Strength] 81 mg PO QAM 10/11/18 11/30/18 History atorvastatin 40 mg PO HS 10/11/18 11/30/18 History clopidogrel 75 mg PO QAM 10/11/18 11/30/18 History Citrucel (sucrose) 1 tbsp PO BID #0 g 10/19/18 11/30/18 Rx lisinopril 2.5 mg PO DAILY 11/30/18 11/30/18 History metoprolol succinate 25 mg PO DAILY 11/30/18 11/30/18 History nitroglycerin [Nitrostat] 0.4 mg SUBLINGUAL UD PRN 11/30/18 11/30/18 History Patient History Medical History History of MS (myocardial infarction) Coronary artery disease CHF (congestive heart failure) Severe sepsis History of hysterectomy (Chronic) Inflammatory arthritis (Chronic) Gout (Chronic) Inclusion body myositis (Chronic) 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 (Chronic) HLD (hyperlipidemia) (Chronic) Neuropathy (Chronic) Surgical History S/P cardiac cath Family History Other Coronary heart disease Social History Preferred Language: [place] Communication Ability: Effective Telecommunication Lines Repairer Required: No Beliefs That Will Affect Care: None Current Living Situation: Alone Other Information That Helps Us Care for You: No Feels Safe at Home: Yes Safety Concerns: Feels Safe At This Time Smoking Status: Never smoker Second Hand Exposure: No ; Hx Alcohol Use: No Hx Substance Use: No Review of Systems Review of Systems: ROS: Gen: + weakness, No fevers, + weight loss Eyes: No eye redness, or pain, no recent vision changes Resp: No SOB, no cough Cardio: No palpitations/irregular beats, no chest pain GI: Last week, one night, she had abdominal cramping, otherwise no abdominal pain, no nausea/vomiting : Denies pain on urination Skin: No jaundice, itching or new rashes Physical Exam Constitutional: WD/WN, vitals as above + ill appearing and + thin Eyes: PERRL, conjunctivae normal, anicteric sclerae ENMT: external ear and nose normal, oropharynx normal Neck: trachea midline, no thyromegaly Respiratory: normal respiratory effort, lungs clear to auscultation Cardiovascular: RRR, no murmur, no edema Gastrointestinal (Abdomen): normal bowel sounds, soft, nontender, no hepatosplenomegaly Skin: no rashes, warm and dry no jaundice Neurologic: PERRL, EOMI, accommodation nl, no face palsy, no dysarthria Psychiatric: A+Ox3, euthymic affect Lymphatic: no cervical or axillary lymphadenopathy Results & Data Vital Signs (Past 12 Hours) Vital Signs Temp Pulse Resp BP Pulse Ox 12/03/18 07:08 36.9 C 77 18 133/65 93 12/03/18 02:34 37.0 C 73 18 117/53 L 95 12/02/18 23:22 36.9 C 64 16 122/65 96 Laboratory Results WBC 13, Hb 9, Hct 27, Platelets 333, Na 136, K 3.4, BUN 57, Cr 0.4. Diagnostic Findings US 12/02/18: 1. Layering nonshadowing material within the gallbladder which may reflect stones or sludge. No evidence of acute cholecystitis. 2. No biliary ductal dilatation. CT with IV contrast on 10/17/18: 1. Mild nonspecific mediastinal and hilar adenopathy. 2. Cardiomegaly with small bilateral pleural effusions and mild pulmonary edema. 3. Dependent subsegmental bibasilar consolidation favors atelectasis. 4. No bowel obstruction, pneumatosis or pneumoperitoneum. 5. Mild wall thickening of the distal sigmoid colon and rectum with trace free pelvic fluid and mild pericolonic stranding. Findings are suspicious for a mild nonspecific proctocolitis. 6. Mild wall thickening about the urinary bladder. Correlate with urinalysis. 7. Nonspecific pericholecystic edema with equivocal cholelithiasis. This finding could be correlated with right upper quadrant ultrasound. 8. Additional findings as above. (1) Diarrhea Diarrhea type: unspecified type Qualified Code(s): R19.7 - Diarrhea, unspecified
[2018-12-03] MEDS: METHYLCELLULOSE POWDER 454 GM JAR PO SCH ×2 (09:38→21:05)
[2018-12-03] MEDS: CHOLECALCIFEROL 1,000 UNITS TAB PO SCH ×2 (09:39→21:10)
[2018-12-03] MEDS: METOPROLOL SUCC 25MG EXT REL TAB PO SCH (09:39)
[2018-12-03] MEDS: CLOPIDOGREL BISULFATE 75 MG TAB PO SCH (09:39)
[2018-12-03] MEDS: ALLOPURINOL 100 MG TAB PO SCH (09:40)
[2018-12-03] MEDS: ASPIRIN 81 MG ECTAB PO SCH (09:40)
[2018-12-03] MEDS: GABAPENTIN 600 MG TAB PO SCH ×3 (09:40→21:10)
--- NOTE | 2018-12-03 17:08 | XRay Report ---
KUB HISTORY: Acute area diarrhea; r/o constipation with overflow COMPARISON: CT abdomen pelvis 10/17/2018. FINDINGS: The bowel gas pattern is non-obstructive. Mild to moderate gaseous distention of the colon with ascending colon measuring up to 6.3 cm. No significant formed stool to suggest constipation. Mil d to moderate formed stool noted about the cecum. There is no organomegaly. No renal calculi. No ure teral calculi. No pneumoperitoneum or pneumatosis. No fracture. IMPRESSION: 1. Nonobstructive bowel gas pattern. 2. Mild to moderate gaseous distention of the colon without evidence of significant constipation. Electronically signed by: Dallas Shine M.D. 12/03/2018 5:07 PM
--- NOTE | 2018-12-03 19:58 | Hospitalist Progress Note ---
Date of Service December 03, 2018 Assessment & Plan (1) Acute kidney injury: Serum creatinine at time of admission was 1.66 compared to recent baseline of 0.8-1.0. Acute kidney injury probably secondary to volume depletion from GI fluid losses. Does not appear to be septic. Consider adrenal insufficiency. Nephrology consulted. Receiving IV fluids. Creatinine today = 0.74. (2) Hyperkalemia: Serum potassium at time of admission was 5.2. Holding lisinopril. Consider adrenal insufficiency. Metabolic acidosis contributing factor. Potassium today = 3.4. Follow. (3) Hyponatremia: Serum sodium 129 at time of admission. Experiencing nausea, vomiting, diarrhea. Hyponatremia could be secondary to GI letter light losses. Consider adrenal insufficiency. Sodium today = 136. Follow. (4) Hypotension: Systolic blood pressures as low as 84 morning of 12/01. Experiencing nausea, vomiting, diarrhea. Receiving IV fluids for dehydration. No signs/symptoms of GI bleeding. Does not appear to be septic. Was on chronic steroids until about 4 months ago; consider renal insufficiency. Received IV fluids + IV hydrocortisone. Blood pressures improved. (5) Vomiting: Nausea vomiting improved. Consider adverse reaction to mycophenolate. Will need further evaluation if symptoms recur. (6) Diarrhea: Stool neg for C. difficile. Also checking for routine enteric pathogens and CMV. Had sigmoidoscopy in October 2018- tics, neg path. GI consulted. Trial of Citrucel recommended. (7) Coronary artery disease: STEMI with PCI's of RCA and left circumflex with drug-eluting stents July 2018. No anginal symptoms. No CHF. Continue aspirin, clopidogrel, metoprolol succinate, atorvastatin. (8) Cardiomyopathy: History of ischemic cardiomyopathy. LVEF 30-35% per echo 10/12/2018. No evidence of CHF clinically or radiographically. Holding lisinopril secondary to hypotension, acute kidney injury, hyperkalemia. Continue metoprolol succinate with hold parameters. (9) Hypertension: History of hypertension, but blood pressures were low. Lisinopril being held because of acute kidney injury and hyperkalemia. Continue metoprolol with hold parameters. (10) 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: TSH normal. Continue levothyroxine. 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 Hold due to CEDRIC and diarrhea. Outpatient Rheum records requested for background info. (12) Malnutrition of moderate degree: Has lost about 20 lbs. Poor oral intake. Consult hydrographer. (13) Anemia: Chronic normocytic anemia with baseline hemoglobin around 9. Hemoglobin was 13.7-day of admission and subsequently felt as low as 8.2. No gross GI bleeding, but stool was heme positive. Serum iron 36, percent sat 15, ferritin 511, B12 1164, folate 4.9. GI consulted. Conservative management without endoscopic evaluation recommend at this time because of [place] in July. Hemoglobin today 9.0. Follow. (14) DVT prophylaxis: SCD's ordered. Ambulate. (15) Discharge planning issues: Discharge disposition to be determined- probable DC to home. Internal Medicine follow-up with Dr. Vanegas. Subjective Recheck for multiple problems. Patient seen in their room around 1550. No fever or chills. Hoarseness improved. Occasional nonproductive cough. No further nausea or vomiting. Ongoing loose stools, but not as voluminous. No apparent melena or hematochezia. Review of Systems: Constitutional- as noted above. Cardiac- no chest pain. Pulmonary- as noted above. GI- as noted above - no urinary symptoms. Otherwise, as noted above. Physical Exam Constitutional: no acute distress Respiratory: no respiratory distress Auscultation: lungs clear to auscultation bilaterally Cardiovascular: Rate/Rhythm: regular rate and regular rhythm Heart Sounds: no gallop, no murmur and no cardiac rub Vessels: no JVD Extremities: no calf tenderness and no edema Gastrointestinal (Abdomen): normal bowel sounds, soft, nontender, no hepatosplenomegaly Musculoskeletal: Extremities: no cyanosis Skin: no rashes, warm and dry Psychiatric: Orientation: alert; + not oriented x 3 (somewhat confused) Results & Data Vital Signs (Past 12 Hours) Vital Signs Temp Pulse Pulse Resp BP BP Pulse Ox 12/03/18 19:32 37.3 C 70 18 152/77 H 94 12/03/18 16:00 87 12/03/18 15:22 36.9 C 87 20 135/71 98 12/03/18 11:04 36.6 C 70 20 153/81 H 97 12/03/18 08:00 66 Laboratory Results 12/03/18 05:50 12/03/18 05:50 (1) Vomiting Nausea presence: unspecified Vomiting Intractability: non-intractable Vomiting type: unspecified Qualified Code(s): R11.10 - Vomiting, unspecified (2) Diarrhea Diarrhea type: unspecified type Qualified Code(s): R19.7 - Diarrhea, unspecified (3) Hypertension Hypertension type: unspecified Qualified Code(s): I10 - Essential (primary) hypertension
[2018-12-03] MEDS: ATORVASTATIN 40 MG TAB PO SCH (21:09)
[2018-12-03] MEDS: DULOXETINE HCL 30 MG CAP PO SCH (21:09)
[2018-12-04] MEDS: LEVOTHYROXINE SODIUM 88 MCG TABLET PO SCH (05:34)
[2018-12-04 06:03] LABS: Hematocrit (blood only) 27.3 % (37-47); Hemoglobin 8.9 g/dL (12.0-16.0); Mean Corpuscular Hgb Conc 32.6 g/dL (32-36); Mean Corpuscular Volume 86.9 fL (80-100); Mean Platelet Volume 9.6 fL (7.4-10.4); Platelet Count 353 K/uL (130-400); RDW Coefficient of Variation 15.1 % (11.5-14.5); Red Blood Count 3.14 M/uL (4.2-5.4); White Blood Count 14.01 K/uL (4.8-10.8)
[2018-12-04 06:39] LABS: BUN Creatinine Ratio 56.7 (10-20); Calcium 8.9 mg/dl (8.5-10.1); Creatinine Clr Calc Pharmacy 68.9 ml/min; Est GFR (African American) 105.4; Est GFR (Non-African American) 90.9; Potassium 3.3 mmol/L (3.5-5.1)
[2018-12-04] MEDS: CHOLECALCIFEROL 1,000 UNITS TAB PO SCH ×2 (08:16→20:35)
[2018-12-04] MEDS: CLOPIDOGREL BISULFATE 75 MG TAB PO SCH (08:16)
[2018-12-04] MEDS: METOPROLOL SUCC 25MG EXT REL TAB PO SCH (08:17)
[2018-12-04] MEDS: GABAPENTIN 600 MG TAB PO SCH ×3 (08:17→20:34)
[2018-12-04] MEDS: ASPIRIN 81 MG ECTAB PO SCH (08:18)
[2018-12-04] MEDS: ALLOPURINOL 100 MG TAB PO SCH (08:18)
[2018-12-04] MEDS: METHYLCELLULOSE POWDER 454 GM JAR PO SCH ×2 (08:19→20:31)
[2018-12-04] MEDS: POTASSIUM CHLORIDE 10 MEQ TABCR PO SCH ×2 (08:21→20:33)
[2018-12-04 15:01] LABS: CMV DNA PCR Qual DETECTED; Source Urine
--- NOTE | 2018-12-04 17:46 | Hospitalist Progress Note ---
Date of Service December 04, 2018 Assessment & Plan (1) Acute kidney injury: Serum creatinine at time of admission was 1.66 compared to recent baseline of 0.8-1.0. Acute kidney injury probably secondary to volume depletion from GI fluid losses. Does not appear to be septic. Consider adrenal insufficiency. Nephrology consulted. Received IV fluids with improvement. Creatinine today = 0.53. (2) Hyperkalemia: Serum potassium at time of admission was 5.2. Holding lisinopril. Consider adrenal insufficiency. Metabolic acidosis contributing factor. Potassium today = 3.3. Follow. (3) Hyponatremia: Serum sodium 129 at time of admission. Experiencing nausea, vomiting, diarrhea. Hyponatremia could be secondary to GI letter light losses. Consider adrenal insufficiency. Sodium today = 137. Follow. (4) Hypotension: Systolic blood pressures as low as 84 morning of 12/01. Experiencing nausea, vomiting, diarrhea. Receiving IV fluids for dehydration. No signs/symptoms of GI bleeding. Does not appear to be septic. Was on chronic steroids until about 4 months ago; consider renal insufficiency. Received IV fluids + IV hydrocortisone. Blood pressures improved. (5) Hypokalemia: Hyperkalemia at time of admission. K now 3.3. Replace with caution. Follow. (6) Vomiting: Nausea vomiting improved. Consider adverse reaction to mycophenolate. Will need further evaluation if symptoms recur. (7) Diarrhea: Stool neg for C. difficile. Also checking for routine enteric pathogens and CMV. Had sigmoidoscopy in October 2018- tics, neg path. GI consulted. Trial of Citrucel recommended. (8) Coronary artery disease: STEMI with PCI's of RCA and left circumflex with drug-eluting stents July 2018. No anginal symptoms. No CHF. Continue aspirin, clopidogrel, metoprolol succinate, atorvastatin. (9) Cardiomyopathy: History of ischemic cardiomyopathy. LVEF 30-35% per echo 10/12/2018. No evidence of CHF clinically or radiographically. Held lisinopril secondary to hypotension, acute kidney injury, hyperkalemia. Continue metoprolol succinate with hold parameters. Resume lisinopril with caution. (10) Hypertension: History of hypertension, but blood pressures were low. Lisinopril being held because of acute kidney injury and hyperkalemia. Continue metoprolol with hold parameters. (11) 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: TSH normal. Continue levothyroxine. 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 Hold due to CEDRIC and diarrhea. Outpatient Rheum records requested for background info. (13) Malnutrition of moderate degree: Has lost about 20 lbs. Poor oral intake. Consult physician interventional cardiologist. (14) Anemia: Chronic normocytic anemia with baseline hemoglobin around 9. Hemoglobin was 13.7-day of admission and subsequently felt as low as 8.2. No gross GI bleeding, but stool was heme positive. Serum iron 36, percent sat 15, ferritin 511, B12 1164, folate 4.9. GI consulted. Conservative management without endoscopic evaluation recommend at this time because of [place] in July. Hemoglobin today 8.9. On ASA + clopidogrel for STEMI with PCI. Start empiric pantoprazole. Follow. (15) DVT prophylaxis: SCD's ordered. Ambulate. (16) Discharge planning issues: Discharge disposition to be determined- probable DC to home. Internal Medicine follow-up with Dr. Vanegas. Daughter visiting this evening and given update. Subjective Recheck for multiple problems. Patient seen in their room around 1030. No fever or chills. Occasional nonproductive cough. No further nausea or vomiting. Diarrhea improved. No apparent melena or hematochezia. Intermittent confusion, sometimes with visual hallucinations. Review of Systems: Constitutional- as noted above. Cardiac- no chest pain. Pulmonary- as noted above. GI- as noted above - no urinary symptoms. Otherwise, as noted above. Physical Exam Constitutional: no acute distress Respiratory: no respiratory distress Auscultation: lungs clear to auscultation bilaterally Cardiovascular: Rate/Rhythm: regular rate and regular rhythm Heart Sounds: no gallop, no murmur and no cardiac rub Vessels: no JVD Extremities: no calf tenderness and no edema Gastrointestinal (Abdomen): normal bowel sounds, soft, nontender, no hepatosplenomegaly Musculoskeletal: Extremities: no cyanosis Skin: no rashes, warm and dry Psychiatric: Orientation: alert; + not oriented x 3 (somewhat confused) Results & Data Vital Signs (Past 12 Hours) Vital Signs Temp Pulse Pulse Resp BP BP Pulse Ox 12/04/18 15:24 37.3 C 71 20 158/83 H 95 12/04/18 10:45 37.0 C 89 20 146/67 H 95 12/04/18 08:04 36.7 C 93 H 16 136/70 94 12/04/18 08:00 79 Laboratory Results 12/04/18 05:29 12/04/18 05:29 (1) Vomiting Nausea presence: unspecified Vomiting Intractability: non-intractable Vomi ting type: unspecified Qualified Code(s): R11.10 - Vomiting, unspecified (2) Diarrhea Diarrhea type: unspecified type Qualified Code(s): R19.7 - Diarrhea, unspecified (3) Hypertension Hypertension type: unspecified Qualified Code(s): I10 - Essential (primary) hypertension
[2018-12-04] MEDS: DULOXETINE HCL 30 MG CAP PO SCH (20:32)
[2018-12-04] MEDS: ATORVASTATIN 40 MG TAB PO SCH (20:33)
[2018-12-04 21:54] LABS: CMV DNA PCR Qual NOT DETECTED; Source Whole Blood
[2018-12-05] MEDS: LEVOTHYROXINE SODIUM 88 MCG TABLET PO SCH (05:05)
[2018-12-05] MEDS: COSYNTROPIN 250 MCG in SYRINGE 4 ML IV SCH ×2 (08:05→08:19)
[2018-12-05 08:19] LABS: Basophils # (auto) 0.01 K/uL (0-0.2); Basophils % (auto) 0.1 %; Eosinophils % (auto) 1.4 %; Hematocrit (blood only) 26.4 % (37-47); Hemoglobin 8.7 g/dL (12.0-16.0); Immature Granulocytes # (auto) 0.04 K/uL (0.00-0.02); Immature Granulocytes % (auto) 0.3 %; Lymphocytes # (auto) 1.09 K/uL (1.2-3.4); Lymphocytes % (auto) 7.4 %; Mean Corpuscular Volume 86.8 fL (80-100); Mean Platelet Volume 9.2 fL (7.4-10.4); Monocytes # (auto) 1.16 K/uL (0.11-0.59); Monocytes % (auto) 7.9 %; Neutrophils # (auto) 12.23 K/uL (1.4-6.5); Neutrophils % (auto) 82.9 %; Platelet Count 350 K/uL (130-400); RDW Coefficient of Variation 14.9 % (11.5-14.5); RDW Standard Deviation 47.1 fL (36.4-46.3); Red Blood Count 3.04 M/uL (4.2-5.4); White Blood Count 14.73 K/uL (4.8-10.8)
[2018-12-05 08:41] LABS: Creatinine Clr Calc Pharmacy 71.4 ml/min; Est GFR (African American) 106.1; Est GFR (Non-African American) 91.5; Potassium 3.3 mmol/L (3.5-5.1)
[2018-12-05] MEDS: METHYLCELLULOSE POWDER 454 GM JAR PO SCH ×2 (09:43→20:05)
[2018-12-05] MEDS: CLOPIDOGREL BISULFATE 75 MG TAB PO SCH (10:20)
[2018-12-05] MEDS: METOPROLOL SUCC 25MG EXT REL TAB PO SCH (10:20)
[2018-12-05] MEDS: POTASSIUM CHLORIDE 10 MEQ TABCR PO SCH ×2 (10:20→20:07)
[2018-12-05] MEDS: ALLOPURINOL 100 MG TAB PO SCH (10:20)
[2018-12-05] MEDS: GABAPENTIN 600 MG TAB PO SCH ×3 (10:21→20:06)
[2018-12-05] MEDS: ASPIRIN 81 MG ECTAB PO SCH (10:21)
[2018-12-05] MEDS: PANTOprazole 40 MG TAB PO SCH (10:57)
[2018-12-05] MEDS: CHOLECALCIFEROL 1,000 UNITS TAB PO SCH ×2 (10:57→20:09)
--- NOTE | 2018-12-05 13:10 | Hospitalist Progress Note ---
Date of Service December 05, 2018 Assessment & Plan (1) Acute kidney injury: Serum creatinine at time of admission was 1.66 compared to recent baseline of 0.8-1.0. Acute kidney injury probably secondary to volume depletion from GI fluid losses. Does not appear to be septic. Consider adrenal insufficiency. Nephrology consulted. Received IV fluids with improvement. Creatinine today = 0.52. (2) Hyperkalemia: Serum potassium at time of admission was 5.2. Holding lisinopril. Considered adrenal insufficiency, but cosyntropin stim test OK. Metabolic acidosis contributing factor. Potassium today = 3.3. Follow. (3) Hypokalemia: Hyperkalemia at time of admission. K now 3.3. Replace with caution. Follow. (4) Hyponatremia: Serum sodium 129 at time of admission. Experiencing nausea, vomiting, diarrhea. Hyponatremia could be secondary to GI letter light losses. Considered adrenal insufficiency, but cosyntropin stim test OK. Sodium today = 138. Follow. (5) Hypotension: Systolic blood pressures as low as 84 morning of 12/01. Experiencing nausea, vomiting, diarrhea. Receiving IV fluids for dehydration. No signs/symptoms of GI bleeding. Does not appear to be septic. Was on chronic steroids until about 4 months ago; considered adrenal insufficiency, but cosyntropin stim test OK. Received IV fluids + IV hydrocortisone. Blood pressures improved. (6) Vomiting: Nausea vomiting improved. Consider adverse reaction to mycophenolate. Will need further evaluation if symptoms recur. (7) Diarrhea: Stool neg for C. difficile and routine enteric pathogens. At risk for immunosuppression due to mycophenolate. Blood CMV negative. Intended to order stool CMV, but urine specimen was sent and CMV PCR was +. Had sigmoidoscopy in October 2018- tics, neg path. GI consulted. Suspected that diarrhea secondary to meds- mycophenolate most likely culprit, but allopurinol possibility as well. Trial of Citrucel recommended. Improved. (8) Coronary artery disease: STEMI with PCI's of RCA and left circumflex with drug-eluting stents July 2018. No anginal symptoms. No CHF. Continue aspirin, clopidogrel, metoprolol succinate, atorvastatin. (9) Cardiomyopathy: History of ischemic cardiomyopathy. LVEF 30-35% per echo 10/12/2018. No evidence of CHF clinically or radiographically. Held lisinopril secondary to hypotension, acute kidney injury, hyperkalemia. Continue metoprolol succinate with hold parameters. Resume lisinopril with caution. (10) Hypertension: History of hypertension, but blood pressures were low. Lisinopril held because of acute kidney injury and hyperkalemia; resume with caution. Continue metoprolol with hold parameters. (11) 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: TSH normal. Continue levothyroxine. 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 Outpatient Rheum records requested for background info. (13) Malnutrition of moderate degree: Has lost about 20 lbs. Poor oral intake. Consult tier and detonator. (14) Anemia: Chronic normocytic anemia with baseline hemoglobin around 9. Hemoglobin was 13.7-day of admission and subsequently felt as low as 8.2. No gross GI bleeding, but stool was heme positive. Serum iron 36, percent sat 15, ferritin 511, B12 1164, folate 4.9. GI consulted. Conservative management without endoscopic evaluation recommend at this time b ecause of [place] in July. Hemoglobin today 8.7. On ASA + clopidogrel for STEMI with PCI. Start empiric pantoprazole. Follow. (15) DVT prophylaxis: SCD's ordered. Ambulate. (16) Discharge planning issues: Discharge disposition to be determined- probable DC to home with services. Daughters very supportive. Internal Medicine follow-up with Dr. Vanegas. Subjective Recheck for multiple problems. Patient seen in their room around 1110. Out of bed in chair. No fever or chills. No further nausea or vomiting. Diarrhea improved. No apparent melena or hematochezia. Review of Systems: Constitutional- as noted above. Cardiac- no chest pain. Pulmonary- cough improved. GI- as noted above - no urinary symptoms. Otherwise, as noted above. Physical Exam Constitutional: no acute distress Respiratory: no respiratory distress Auscultation: lungs clear to auscultation bilaterally Cardiovascular: Rate/Rhythm: regular rate and regular rhythm Heart Sounds: no gallop, no murmur and no cardiac rub Vessels: no JVD Extremities: no calf tenderness and no edema Gastrointestinal (Abdomen): normal bowel sounds, soft, nontender, no hepatosplenomegaly Musculoskeletal: Extremities: no cyanosis Skin: no rashes, warm and dry Psychiatric: Orientation: alert; + not oriented x 3 (somewhat confused) Results & Data Vital Signs (Past 12 Hours) Vital Signs Temp Pulse Resp BP Pulse Ox 12/05/18 07:04 37 C 79 16 163/73 H 91 Laboratory Results 12/05/18 08:02 12/05/18 08:02 (1) Vomiting Nausea presence: unspecified Vomiting Intractability: non-intractable Vomiting type: unspecified Qualified Code(s): R11.10 - Vomiting, unspecified (2) Diarrhea Diarrhea type: unspecified type Qualified Code(s): R19.7 - Diarrhea, unspecified (3) Hypertension Hypertension type: unspecified Qualified Code(s): I10 - Essential (primary) hypertension
[2018-12-05] MEDS: LISINOPRIL 2.5 MG TAB PO SCH (14:45)
[2018-12-05] MEDS: ATORVASTATIN 40 MG TAB PO SCH (20:07)
[2018-12-05] MEDS: DULOXETINE HCL 30 MG CAP PO SCH (20:07)
[2018-12-06] MEDS: LEVOTHYROXINE SODIUM 88 MCG TABLET PO SCH (06:05)
[2018-12-06 06:40] LABS: Hemoglobin 8.2 g/dL (12.0-16.0); Mean Corpuscular Hgb Conc 32.8 g/dL (32-36); Mean Corpuscular Volume 86.8 fL (80-100); Mean Platelet Volume 8.6 fL (7.4-10.4); Platelet Count 355 K/uL (130-400); RDW Coefficient of Variation 14.9 % (11.5-14.5); RDW Standard Deviation 46.8 fL (36.4-46.3); Red Blood Count 2.88 M/uL (4.2-5.4); White Blood Count 11.65 K/uL (4.8-10.8)
[2018-12-06 07:12] LABS: BUN Creatinine Ratio 41.5 (10-20); Calcium 8.7 mg/dl (8.5-10.1); Est GFR (African American) 102.3; Est GFR (Non-African American) 88.3; Potassium 3.7 mmol/L (3.5-5.1)
[2018-12-06] MEDS: METHYLCELLULOSE POWDER 454 GM JAR PO SCH (08:50)
[2018-12-06] MEDS: ASPIRIN 81 MG ECTAB PO SCH (08:52)
[2018-12-06] MEDS: POTASSIUM CHLORIDE 10 MEQ TABCR PO SCH (08:52)
[2018-12-06] MEDS: GABAPENTIN 600 MG TAB PO SCH ×2 (08:53→13:33)
[2018-12-06] MEDS: CLOPIDOGREL BISULFATE 75 MG TAB PO SCH (08:53)
[2018-12-06] MEDS: PANTOprazole 40 MG TAB PO SCH (08:53)
[2018-12-06] MEDS: METOPROLOL SUCC 25MG EXT REL TAB PO SCH (08:53)
[2018-12-06] MEDS: LISINOPRIL 2.5 MG TAB PO SCH (08:54)
[2018-12-06] MEDS: ALLOPURINOL 100 MG TAB PO SCH (08:54)
[2018-12-06] MEDS: CHOLECALCIFEROL 1,000 UNITS TAB PO SCH (08:54)
--- NOTE | 2018-12-06 11:01 | Nephrology Progress Note ---
Date of Service December 06, 2018 Assessment & Plan (1) Acute kidney injury: baseline creatinine 0.9-1.0; presenting creatinine 11/30 is 1.7 w/ hyperkalemia, hyponatremia, chemistries suggestive of anion gap metabolic acidosis; mild hyponatremia persists, hyperkalemia and low bicarb resolved w/ IVF >> suspect role for diarrhea here. Cr back to baseline. Emphasized need to avoid NSAIDs and keep well hydrated. Renal will sign off. please call if additional questions (2) Electrolyte and fluid disorder: see above for details of electrolyte issues blood cultures and bland urine sediment (elevated ESR and leukocytosis noted) >>agree w/ holdnig cell cept- has had none since admission -started on steroids 12/01 for possible chronic adrenal insufficiency after OP steroids tapered 4 mos back -Consider using Myfortic which tends to cause less diarrhoea but will defer to out patient provider managing the cellcept (3) Hypertension: SBP in 150-180s since arrival >> goal 140-150s but then w/ hypotension 11/30- -cont OP metoprolol -agree w/ holding low dose ACEI BP controlled. Subjective Seen in f/u for diarrhoea and electrolyte abnormalities. She feels better. Diarrhoea is less now. No SOB. Review of Systems Review of Systems: All systems reviewed & are unremarkable except as noted in HPI & below Physical Exam Physical Exam: General exam: Appears comfortable, no acute distress HEENT: Pupils are equal and reactive to light Neck: No JVD, neck is supple trachea is midline Respiratory system: Clear breath sounds bilaterally. Gastrointestinal: Abdomen is soft, non distended, non tender, bowel sounds are present CVS: Regular rate and rhythm. No murmurs, rubs or gallops Musculoskeletal: No joint or muscle tenderness Extremities: Non tender, no edema, peripheral pulses are present Neuro: Oriented, no tremors, no focal neurological deficits Skin: No rashes Results & Data Vital Signs (Past 12 Hours) Vital Signs Temp Pulse Pulse Resp BP Pulse Ox 12/06/18 07:56 37.0 C 69 22 125/73 94 12/06/18 01:10 37.3 C 79 14 111/66 94 Laboratory Results Laboratory Results - last 24 hr 12/06/18 12/06/18 06:27 06:27 WBC 11.65 H RBC 2.88 L Hgb 8.2 L Hct 25.0 L MCV 86.8 MCH 28.5 MCHC 32.8 RDW Std Deviation 46.8 H RDW Coeff of Danya 14.9 H Plt Count 355 MPV 8.6 Sodium 137 Potassium 3.7 Chloride 104 Carbon Dioxide 27 Anion Gap 6.0 BUN 24 H Creatinine 0.58 L Est Cr Clr Drug Dosing 64.0 Est GFR ( Amer) 102.3 Est GFR (Non-Af Amer) 88.3 BUN/Creatinine Ratio 41.5 H Glucose 102 H Calcium 8.7 (1) Hypertension Hypertension type: unspecified Qualified Code(s): I10 - Essential (primary) hypertension
--- NOTE | 2018-12-06 11:36 | Gastroenterology Progress Note ---
Date of Service December 06, 2018 Assessment & Plan (1) Diarrhea: Pt is a 77 y/o female followed for diarrhea suspected to be related to med side effect: Cellcept or Allopurinol. Infectious workup negative. Previous flex sig negative for microscopic colitis. Diarrhea is currently improved. - Continue Citrucel - May add Questran 4g BID or Imodium on PRN basis if stools are loose again - GI to sign off; pls recall as needed. Supervising Physician Co-Signing Physician Notes I have personally seen and examined the patient with EDUARDO [facility]. Her note reflects my exam and findings. I agree with her impression and plan. Eating well and without symptoms. Diarrhea has improved. Austin Malloy M.D. Subjective Pt reports only had 3-4 soft BMs yesterday, no nocturnal awakening. Soft BM this AM w/o rectal bleeding. Appetite good, denies abd pain/cramping, n/v. Review of Systems Review of Systems: All systems reviewed & are unremarkable except as noted in HPI & below Physical Exam Constitutional: WD/WN, vitals as above well groomed, cooperative and comfortable Eyes: PERRL, conjunctivae normal, anicteric sclerae ENMT: external ear and nose normal, oropharynx normal Respiratory: no respiratory distress and does not use accessory muscles Auscultation: + diminished lung sounds Cardiovascular: RRR, no murmur, no edema Gastrointestinal (Abdomen): normal bowel sounds, soft, nontender, no hepatosplenomegaly Skin: no rashes, warm and dry no jaundice Psychiatric: A+Ox3, euthymic affect Lymphatic: no lymphedema Results & Data Vital Signs (Past 12 Hours) Vital Signs Temp Pulse Pulse Resp BP Pulse Ox 12/06/18 07:56 37.0 C 69 22 125/73 94 12/06/18 01:10 37.3 C 79 14 111/66 94 (1) Diarrhea Diarrhea type: unspecified type Qualified Code(s): R19.7 - Diarrhea, unspecified
--- NOTE | 2018-12-06 12:51 | Hospitalist Progress Note ---
Date of Service December 06, 2018 Assessment & Plan (1) Acute kidney injury: Serum creatinine at time of admission was 1.66 compared to recent baseline of 0.8-1.0. Acute kidney injury probably secondary to volume depletion from GI fluid losses. Does not appear to be septic. Consider adrenal insufficiency. Nephrology consulted. Received IV fluids with improvement. Creatinine today = 0.58. (2) Hyperkalemia: Serum potassium at time of admission was 5.2. Holding lisinopril. Considered adrenal insufficiency, but cosyntropin stim test OK. Metabolic acidosis contributing factor. Potassium today = 3.7. Follow. (3) Hypokalemia: Hyperkalemia at time of admission, then potassium fell as low as 3.3. K now 3.7. Replace with caution. Follow. (4) Hyponatremia: Serum sodium 129 at time of admission. Experiencing nausea, vomiting, diarrhea. Hyponatremia could be secondary to GI letter light losses. Considered adrenal insufficiency, but cosyntropin stim test OK. Sodium today = 137. Follow. (5) Hypotension: Systolic blood pressures as low as 84 morning of 12/01. Experiencing nausea, vomiting, diarrhea. Receiving IV fluids for dehydration. No signs/symptoms of GI bleeding. Does not appear to be septic. Was on chronic steroids until about 4 months ago; considered adrenal insufficiency, but cosyntropin stim test OK. Received IV fluids + IV hydrocortisone. Blood pressures improved and lisinopril resumed without difficulty. (6) Vomiting: Nausea and vomiting resolved. Probable adverse reaction to mycophenolate. (7) Diarrhea: Stool neg for C. difficile and routine enteric pathogens. At risk for immunosuppression due to mycophenolate. Blood CMV negative. Intended to order stool CMV, but urine specimen was sent and urine CMV PCR was +. Discussed with ID. CMV enteritis unlikely with negative viremia and diarrhea i mproved. No need for Rx or further evaluation at this time. Had sigmoidoscopy in October 2018- tics, neg path. GI consulted. Suspected that diarrhea secondary to meds- mycophenolate most likely culprit, but allopurinol possibility as well. Trial of Citrucel recommended. Diarrhea much better by discharge. (8) Coronary artery disease: STEMI with PCI's of RCA and left circumflex with drug-eluting stents July 2018. No anginal symptoms. No CHF. Continue aspirin, clopidogrel, metoprolol succinate, atorvastatin. (9) Cardiomyopathy: History of ischemic cardiomyopathy. LVEF 30-35% per echo 10/12/2018. No evidence of CHF clinically or radiographically. Held lisinopril secondary to hypotension, acute kidney injury, hyperkalemia. Continue metoprolol succinate with hold parameters. Resume lisinopril with caution. (10) Hypertension: History of hypertension, but blood pressures were low. Lisinopril held because of acute kidney injury, hyperkalemia, and hypotension. Labs and hemodynamics improved. Discharge on metoprolol and lisinopril. (11) 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: TSH normal. Continue levothyroxine. 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 Outpatient Rheum records requested for background info. Suspected that mycophenolate was cause of GI symptoms and associated laboratory abnormalities. Symptoms markedly improved with discontinuation. Best not to resume mycophenolate. Will need outpatient follow-up with Rheumatology. (13) Malnutrition of moderate degree: Has lost about 20 lbs. Poor oral intake. 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 Wt loss could be secondary to GI side effects from meds. (14) Anemia: Chronic normocytic anemia with baseline hemoglobin around 9. Hemoglobin was 13.7-day of admission and subsequently felt as low as 8.2. No gross GI bleeding, but stool was heme positive. Serum iron 36, percent sat 15, ferritin 511, B12 1164, folate 4.9. GI consulted. Conservative management without endoscopic evaluation recommend at this time because of OR in July. Hemoglobin today 8.7. On ASA + clopidogrel for STEMI with PCI. Started on empiric pantoprazole. DC on Fe supplementation with ascorbic acid for better absorption. Follow H/H. (15) Altered mental status: Noted to have intermittent confusion during recent hospital stays. Probable delirium secondary to acute illnesses. However, time she continued to have some delusional thoughts and some visual hallucinations. Generally oriented to person, time, place, and president. Patient was able to state the months of the year backwards on the day of discharge with only one air. May have early dementia. Outpatient neuropsych testing recommended. (16) DVT prophylaxis: SCD's ordered. Ambulating with assistance. (17) Discharge planning issues: Pt declines consideration of inpt rehab or skilled care. 24 hour care / assistance recommended in light of ambulatory difficulties and intermittent confusion. DC to home with services. Daughters very supportive. Internal Medicine follow-up with Dr. Vanegas. Outpatient follow-up with Rheumatology. Subjective Recheck for multiple problems. Patient seen in her room around noon. Daughter visiting. Patient doing well. Diarrhea much better, stools more formed. No fever, nausea, vomiting, abdominal pain. Still has episodes of confusion, sometimes with visual hallucinations, but oriented. Patient would like to go home. She is absolutely not willing to consider skilled care or inpatient rehab. Family is working with Case Management to optimize supervision/support at home. Physical Exam Constitutional: no acute distress Respiratory: no respiratory distress Auscultation: lungs clear to auscultation bilaterally Cardiovascular: Rate/Rhythm: regular rate and regular rhythm Heart Sounds: no gallop, no murmur and no cardiac rub Vessels: no JVD Extremities: no calf tenderness and no edema Gastrointestinal (Abdomen): normal bowel sounds, soft, nontender, no hepatosplenomegaly Musculoskeletal: Extremities: no cyanosis Skin: no rashes, warm and dry Psychiatric: Orientation: alert; + not oriented x 3 (somewhat confused) Performed months backwards, 02/22 correct. Results & Data Vital Signs (Past 12 Hours) Vital Signs Temp Pulse Pulse Resp BP BP Pulse Ox 12/06/18 12:25 37.0 C 69 22 124/79 125/73 94 12/06/18 07:56 37.0 C 69 22 125/73 94 12/06/18 01:10 37.3 C 79 14 111/66 94 (1) Vomiting Nausea presence: unspecified Vomiting Intractability: non-intractable Vomiting type: unspecified Qualified Code(s): R11.10 - Vomiting, unspecified (2) Diarrhea Diarrhea type: unspecified type Qualified Code(s): R19.7 - Diarrhea, unspecified (3) Hypertension Hypertension type: unspecified Qualified Code(s): I10 - Essential (primary) hypertension
--- NOTE | 2018-12-07 09:37 | Discharge Summary ---
Date of Service Date of Admission: 11/30/18 Date of Discharge: 12/06/18 Admission HPI Per Admitting Provider A 77-year-old female with past medical history significant for hypothyroidism, gout, inclusion body myositis, neuropathy, history of ST elevated [place] s/p 2 drug-eluting stents placed in mid RCA and distal circumflex in July 2018, CHF with last echo shows EF of 30%, She has a history of UTIs, first was in July and she was admitted in October 11 with weakness and diarrhea. At that time, she became septic with pansensitive E. coli and bacteremia. She was treated with 1 week of Rocephin in the hospital and discharged on amoxicillin to complete 10-day course. She is having diarrhea for some time, during last admission, she was seen by GI and flexible sigmoidoscopy was done which was unremarkable except for diverticulosis . Durin last admission she also had nstemi thought to be from sepsis and tachycardia. Ef alsio reduced to 30% and she was started on low dose lisinopril. The patient was discharged home with home health.. Since discharge, she is not doing good, ambulatory status is poor, poor appetite, and she is having diarrhea, still the same. She says she has 2 episodes of diarrhea every day with large amounts and also yesterday there was some nausea, vomiting, and outpatient labs were checked which showed potassium of 6 and she was advised to come to the hospital. Here in the ER, sodium is 129, potassium is 5.2, creatinine 1.66 and CO2 is 14.Received f fluids,and she is feeling better. The daughter is stating the patient did not improve since last admission, and concerned her UTI might have not cleared yet. Actually she was started on cipro by PCP today . But Urinalysis is mostly unremarkable here in the ER. The patient denies any chest pain. She is short of breath on ambulation, she walks with help of cane but not much ambulating. She gets food on wheels, denies any headache, has some dizziness, has some difficulty swallowing. She says she is eating soft food .Complains of some abdominal pain. Currently resting comfortably and hemodynamically stable. there was a question of CellCept causing diarrhea and dose was cut to half initially but at the time of discharge, she was put back on regular dose. Currently resting comfortably and hemodynamically stable. Principal Diagnosis acute kidney injury, probably secondary to fluid losses from diarrhea OTHER ACUTE DIAGNOSES: hyponatremia hyperkalemia diarrhea- suspected side-effect from CellCept confusion with delusions and visual hallucinations anemia heme + stools Discharge Data Allergies Allergy/AdvReac Type Severity Reaction Status Date / Time No Known Allergies Allergy Verified 10/11/18 17:23 Consultations 11/30/18 04:57 ED Decision to Admit Stat 11/30/18 07:17 Consult Case Management - Discharge Planning Routine Consult Nephrology Routine 12/01/18 13:22 Consult Health Information Management Routine 12/03/18 07:18 Consult Gastroenterology Routine Ordered Studies 12/02/18 07:00 gallbladder Routine Hospital Course (1) Acute kidney injury: Serum creatinine at time of admission was 1.66 compared to recent baseline of 0.8-1.0. Acute kidney injury probably secondary to volume depletion from GI fluid losses. Does not appear to be septic. Consider adrenal insufficiency. Nephrology consulted. Received IV fluids with improvement. Creatinine day of discharge was 0.58. (2) Hyperkalemia: Serum potassium at time of admission was 5.2. Holding lisinopril. Considered adrenal insufficiency, but cosyntropin stim test OK. Metabolic acidosis contributing factor. Potassium day of discharge was 3.7. Follow. (3) Hypokalemia: Hyperkalemia at time of admission, then potassium fell as low as 3.3. K day of discharge was 3.7. Replace with caution. Follow. (4) Hyponatremia: Serum sodium 129 at time of admission. Experiencing nausea, vomiting, diarrhea. Hyponatremia could be secondary to GI letter light losses. Considered adrenal insufficiency, but cosyntropin stim test OK. Sodium day of discharge was 137. Follow. (5) Hypotension: Systolic blood pressures as low as 84 morning of 12/01. Experiencing nausea, vomiting, diarrhea. Receiving IV fluids for dehydration. No signs/symptoms of GI bleeding. Does not appear to be septic. Was on chronic steroids until about 4 months ago; considered adrenal insufficiency, but cosyntropin stim test OK. Received IV fluids + IV hydrocortisone. Blood pressures improved and lisinopril resumed without difficulty. (6) Vomiting: Nausea and vomiting resolved. Probable adverse reaction to mycophenolate. (7) Diarrhea: Stool neg for C. difficile and routine enteric pathogens. At risk for immunosuppression due to mycophenolate. Blood CMV negative. Intended to order stool CMV, but urine specimen was sent and urine CMV PCR was +. Discussed with ID. CMV enteritis unlikely with negative viremia and diarrhea improved. No need for Rx or further evaluation at this time. Had sigmoidoscopy in October 2018- tics, neg path. GI consulted. Suspected that diarrhea secondary to meds- mycophenolate most likely culprit, but allopurinol possibility as well. Trial of Citrucel recommended. Diarrhea much better by discharge. (8) Coronary artery disease: STEMI with PCI's of RCA and left circumflex with drug-eluting stents July 2018. No anginal symptoms. No CHF. Continue aspirin, clopidogrel, metoprolol succinate, atorvastatin. (9) Cardiomyopathy: History of ischemic cardiomyopathy. LVEF 30-35% per echo 10/12/2018. No evidence of CHF clinically or radiographically. Held lisinopril secondary to hypotension, acute kidney injury, hyperkalemia. Continue metoprolol succinate with hold parameters. Resume lisinopril with caution. (10) Hypertension: History of hypertension, but blood pressures were low. Lisinopril held because of acute kidney injury, hyperkalemia, and hypotension. Labs and hemodynamics improved. Discharge on metoprolol and lisinopril. (11) 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: TSH normal. Continue levothyroxine. 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 Outpatient Rheum records requested for background info. Suspected that mycophenolate was cause of GI symptoms and associated laboratory abnormalities. Symptoms markedly improved with discontinuation. Best not to resume mycophenolate. Will need outpatient follow-up with Rheumatology. (13) Malnutrition of moderate degree: Has lost about 20 lbs. Poor oral intake. 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 Wt loss could be secondary to GI side effects from meds. (14) Anemia: Chronic normocytic anemia with baseline hemoglobin around 9. Hemoglobin was 13.7-day of admission and subsequently felt as low as 8.2. No gross GI bleeding, but stool was heme positive. Serum iron 36, percent sat 15, ferritin 511, B12 1164, folate 4.9. GI consulted. Conservative management without endoscopic evaluation recommend at this time because of [place] in July. On ASA + clopidogrel for STEMI with PCI. Started on empiric pantoprazole. DC on Fe supplementation with ascorbic acid for better absorption. Hgb day of discharge was 8.2. Follow H/H. (15) Altered mental status: Noted to have intermittent confusion during recent hospital stays. Probable delirium secondary to acute illnesses. However, at times she continued to have some delusional thoughts and some visual hallucinations. Generally oriented to person, time, place, and president. Patient was able to state the months of the year backwards on the day of discharge with only one error. May have early dementia. TSH, B12 normal. Outpatient neuropsych testing recommended. Consider outpatient follow-up with Neuro. (16) DVT prophylaxis: SCD's ordered. Ambulating with assistance. (17) Discharge planning issues: Pt declines consideration of inpt rehab or skilled care. 24 hour care / assistance recommended in light of ambulatory difficulties and intermittent confusion. DC to home with services. Daughters very supportive. Internal Medicine follow-up with Dr. Vanegas. Outpatient follow-up with Rheumatology. Total Time Total Time Spent Total Time Spent (In Minutes): 60 Discharge Plan Discharge Items Patient Disposition: Home - Home Health Services Reason For Visit: nausea, vomiting, diarrhea, weakness Discharge Diagnosis: nausea, vomiting, diarrhea- probably due to mycophenolate mofetil (CellCept) worsening kidney function, probably from diarrhea and dehydration Condition: Fair Discharge Goals: Improve disease control and Improve function Activity: As commented below Activity Comment: be careful not to fall; please use walker Non-emergency contact: Primary Care Provider and Hospitalist Call non-emergency contact if: you have any medication questions, your symptoms worsen and your temperature is above 101 Follow-up/Referrals: Elizabeth Vanegas DO [Primary Care Provider] - (12/10/2018 2:20 PM Justino Bassett MD (covering for Dr. Vanegas) Internal Medicine [facility]) Diet: Heart Healthy Add Provider Instructions: MEDICATION CHANGES: New medications: pantoprazole (Protonix) 20 mg daily helps prevent stomach ulcers when taking aspirin and other blood thinners ferrous sulfate (iron pill) 325 mg daily for anemia take with lunch with ascorbic acid (Vitamin C) ascorbic acid (vitamin C) 500 mg daily take with lunch to help body absorb iron better Stop: mycophenolate mofetil (CellCept) it may have been causing your severe diarrhea SUMMARY OF TEST RESULTS: Blood tests showed worsening kidney function, low sodium level, high potassium level. All were better by time of discharge. You have been anemic for some time. Fe levels were borderline low. Vitamin B12, and folic acid were normal. Your blood count should be rechecked periodically. Testing to check your adrenal glands was OK. You do not have to take prednisone at this time. Stool tests did not identify any infection causing your diarrhea. Diarrhea may have been due to CellCept. RECOMMENDATIONS FOR FOLLOW-UP: Recommend referral for neuropsych testing. Dr. Vanegas or her associates can help schedule. Please discuss referral for ongoing Rheumatology care with Dr. Vanegas or her associates. OTHER INSTRUCTIONS: Seek medical attention if you have: * temperature above 101 * chest pain or trouble breathing * abdominal pain, nausea, vomiting * diarrhea, dark stools or bloody stools * any unanswered questions or concerns Call 911 if symptoms are severe. Please take good care of yourself. Call if you have any questions or problems. You can reach a [facility] [address] hospitalist on duty at [facility] 24 hours a day by calling [phone]. My cell # is [phone]. Prescriptions: New pantoprazole 20 mg tablet,delayed release (DR/EC) 20 mg PO DAILY Qty: 30 RF: 5 ferrous sulfate 325 mg (65 mg iron) tablet 325 mg PO DAILY Qty: 30 RF: 5 ascorbic acid (vitamin C) 500 mg tablet 500 mg PO DAILY Qty: 30 RF: 5 Continued gabapentin [Neurontin] 600 mg tablet 600 mg PO TID RF: 0 allopurinol 100 mg Tablet 100 mg PO QAM RF: 0 levothyroxine 88 mcg tablet 88 mcg PO QAM RF: 0 cyanocobalamin (vitamin B-12) 1,000 mcg/mL Solution 1,000 mcg IM MONTHLY RF: 0 duloxetine [Cymbalta] 30 mg capsule,delayed release(DR/EC) 60 mg PO HS RF: 0 cholecalciferol (vitamin D3) [Vitamin D3] 1,000 unit Tablet 2,000 unit PO BID RF: 0 Ivig 1 dose IV MONTHLY RF: 0 clopidogrel 75 mg tablet 75 mg PO QAM RF: 0 aspirin [Ecotrin Low Strength] 81 mg tablet,delayed release (DR/EC) 81 mg PO QAM RF: 0 acetaminophen [Tylenol Extra Strength] 500 mg tablet 500 mg PO TID RF: 0 atorvastatin 40 mg tablet 40 mg PO HS RF: 0 lisinopril 2.5 mg tablet 2.5 mg PO DAILY RF: 0 nitroglycerin [Nitrostat] 0.4 mg tablet, sublingual 0.4 mg sublingual UD PRN (Reason: Chest Pain) RF: 0 metoprolol succinate 25 mg tablet extended release 24 hr 25 mg PO DAILY RF: 0 Citrucel (sucrose) Powder 1 tbsp PO BID Qty: 0 RF: 0 Discontinued mycophenolate mofetil [CellCept] 500 mg tablet 1,000 mg PO BID RF: 0 Stand-Alone Forms: [facility]/Other Patient Handouts: Dehydration, Falls Risks Prevent Discharge Orders: Discharge Order (Routine); Ordered 12/06/18 Ordered By: Sheldon Borrero Admission Data Admit Date/Time: 11/30/18 06:05 Attending Provider: Sheldon Borrero Admit Provider: Marc Yin Primary Care Provider: Elizabeth Vanegas Other Providers: Mamadou Peters ; Marc Yin ; Jaquelin Swan ; Colin Kang ; Mary Chavis I ; Dulce Mccurdy ; Kortney Wellington ; Katheryn De Leon ; Sumeet Roberts Service: Medical Other Interventions: Discharge Summary Assessment (RN) Last Done: 12/06/18 12:25 Pending Studies at Discharge: No DC Date/Time DO NOT enter until pt leaves facility: 12/06/18 17:16
== END 2018-12-06 17:16 | disposition home health service (06) | DRG 683 ==
LOC: ED 01:53 → 2E 06:05 → SUATTDRO 06:05 → 2E 06:54 → 3W 12-04 17:37 → 3N 12-05 03:03
DX: R19.7 Diarrhea, unspecified; I42.9 Cardiomyopathy, unspecified; Z90.710 Acquired absence of both cervix and uterus; E27.40 Unspecified adrenocortical insufficiency; I95.9 Hypotension, unspecified; E87.5 Hyperkalemia; R11.10 Vomiting, unspecified; E78.5 Hyperlipidemia, unspecified; G72.41 Inclusion body myositis [IBM]; Z68.1 Body mass index [BMI] 19.9 or less, adult; E87.2 Acidosis; I25.10 Atherosclerotic heart disease of native coronary artery without angina pectoris; E44.0 Moderate protein-calorie malnutrition; E87.1 Hypo-osmolality and hyponatremia; Z79.82 Long term (current) use of aspirin; N17.9 Acute kidney failure, unspecified; M10.9 Gout, unspecified; I25.2 Old myocardial infarction; E03.9 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, unspecified

== ENCOUNTER 2022-01-16 15:35 | Inpatient (IN) ==
[2022-01-16] MEDS ORDERED: SODIUM CHLORIDE 0.9% 1000ML 500 ML IV ONE (16:54)
[2022-01-16] MEDS ORDERED: ACETAMINOPHEN 1,000 MG/100 ML VIAL IV STA (16:54)
[2022-01-16] MEDS ORDERED: ONDANSETRON INJ 2 MG/ML 2 ML VIAL IV STA (16:54)
--- NOTE | 2022-01-16 17:01 | Emergency Department Note ---
Impression & Plan Weakness, Pneumonia, Acute UTI, COVID-19, Leukocytosis ED Provider Note NAME: SCHUYLER AU AGE: 81 SEX: F : 1940 ARRIVES VIA: Ambulance INFORMANT: [Patient] ED PROVIDER(S): [Jeremias Edwards MD] CHIEF COMPLAINT: Illness HISTORY OF PRESENT ILLNESS: The patient is an 81-year-old female who presents to the ER with about 1 day of illness. She felt quite tired and hot last night and then this morning, the same. She developed a headache that is fairly severe. She has had some nausea and vomiting and increased urination. She has developed some left flank pain. She is quite weak and could barely even stand. She presents by ambulance. Patient does have severe arthritis, she is on a small dose of daily prednisone. She does live alone. She denies any falling, she denies any fever, no respiratory complaints. Of note, the patient recently had COVID-19 and has recovered. REVIEW OF SYSTEMS: See HPI for pertinent positives and negatives. A total of ten systems were reviewed and were otherwise negative. PMHx/PSHx: See Below SOCIAL HISTORY: See Below. PHYSICAL EXAM: GENERAL: Patient is in no acute distress. HEENT: No acute trauma, normocephalic atraumatic, mucous membranes moist, no nasal congestion, no scleral icterus. NECK: No stridor, no adenopathy, no meningismus, trachea is midline. LUNGS: Scattered crackles at both bases, no respiratory distress, no wheezing. HEART: Without murmurs gallops or rubs, regular rate and rhythm. ABDOMEN: Soft, nontender, bowel sounds positive, no peritonitis. EXTREMITIES: No cyanosis, trace bilateral pedal edema, full range of motion of all the joints without pain or difficulty, no signs for acute trauma. Hands are cool to the touch. NEUROLOGIC: Oriented x 3, no acute motor or sensory deficits, no focal weakness. SKIN: No rash, no jaundice, no diaphoresis. Back: Left flank discomfort to percussion. DIFFERENTIAL DIAGNOSIS: Infection, dehydration, UTI, pyelonephritis, COVID-19, metabolic abnormality, hypo/hyperglycemia, electrolyte disturbance, anemia, hypoxia, cardiac sources, intracerebral event, toxicologic issues, stroke, TIA, as well as other pathologies. EMERGENCY DEPARTMENT COURSE/PROCEDURES: ECG: Indication was weakness. The ECG shows a normal sinus rhythm with some sinus arrhythmia. The rate is 78. There is T wave inversion in the lateral leads and some poor R wave progression. QTc is 414. There are no PVCs. There is a possible old inferior infarct. Compared to an ECG from 30 November 2018, the lateral T wave inversion is more pronounced. The poor R wave progression is now present. Continuous Cardiac Monitoring: An order was placed for continuous cardiac monitoring. The monitor shows a rate of 67 with normal sinus rhythm. Critical Care Note: I have personally spent 46 minutes of critical care time in the direct management of this patient. This includes bedside care, interpretation of diagnostic studies, and testing, discussion with consultants, patient, and family members, and other required patient management activities. This 46 minutes is in excess of all separately billable procedures. MEDICAL DECISION MAKING: There is a significant leukocytosis at 20,000, this could be consistent with infection. There is a normal hemoglobin and platelet count. No coagulopathy. No renal failure. No significant electrolyte abnormality. Lactic acid level was high at over 4, this finding is consistent with potential infection/sepsis. No worrisome liver enzyme elevation. The patient appeared to be in a euthyroid state. ECG shows a normal sinus rhythm, no obvious acute ischemia. Cardiac enzyme testing x1 is not consistent with acute cardiac injury. Urinalysis does suggest infection. COVID test returned positive. Influenza and RSV test returned negative. Chest x-ray does show a bilateral lower lobe pneumonia. Abdominal and pelvis CT shows the same bilateral lower lobe pneumonia seen on chest x-ray. There was no bowel obstruction, no diverticulitis, no urinary obstruction. Duodenitis and esophagitis was seen. The patient did receive IV saline, she received a total of 1750 cc. This amount of fluid would be sufficient to qualify for 30 cc/kg as per sepsis protocol. Patient was given IV Tylenol, IV cefepime. The patient presents with weakness, she had been vomiting. She complained of flank pain. She was found to have a bilateral pneumonia, potential sepsis as well as a UTI. She was COVID-positive but, she by her report recently had COVID and recovered. Her positive result could be leftover from her previous infection. I spoke to the patient and her family, I talked to case management. The on-call hospitalist was counseled. Past Med/Surg History Medical History (Updated 01/16/22 @ 23:49 by Jeremias Edwards MD) CHF (congestive heart failure) Coronary artery disease Gout History of MO (myocardial infarction) HLD (hyperlipidemia) 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 Inclusion body myositis Inflammatory arthritis Neuropathy Severe sepsis Surgical History History of hysterectomy S/P cardiac cath Family History Other Coronary heart disease Social History Smoking Status: Never smoker Second Hand Exposure: No; Hx Alcohol Use: No Hx Substance Use: No Preferred Language: Georgian Communication Ability: Effective Measurement Coordinator Required: No Beliefs That Will Affect Care: None Current Living Situation: Alone Feels Safe at Home: Yes Assistive Devices: Walker Allergies Allergies Allergy/AdvReac Type Severity Reaction Status Date / Time No Known Drug Allergies Allergy Verified 01/16/22 20:58 Home Meds Home Medications Medication Instructions Recorded Confirmed Ivig 1 dose IV MONTHLY 08/03/18 01/16/22 allopurinol 100 mg tablet 100 mg PO QAM 08/03/18 01/16/22 cholecalciferol (vitamin D3) 25 2,000 unit PO DAILY 08/03/18 01/16/22 mcg (1,000 unit) tablet (Vitamin D3) cyanocobalamin (vitamin B-12) 1,000 mcg IM MONTHLY 08/03/18 01/16/22 1,000 mcg/mL injection solution duloxetine 30 mg capsule,delayed 60 mg PO HS 08/03/18 01/16/22 release (Cymbalta) gabapentin 600 mg tablet 600 mg PO TID 08/03/18 01/16/22 (Neurontin) levothyroxine 88 mcg tablet 88 mcg PO UD 08/03/18 01/16/22 acetaminophen 500 mg tablet 500 mg PO QID PRN Pain 10/11/18 01/16/22 (Tylenol Extra Strength) aspirin 81 mg tablet,delayed 81 mg PO QAM 10/11/18 01/16/22 release (Ecotrin Low Strength) nitroglycerin 0.4 mg sublingual 0.4 mg sublingual UD PRN Chest Pain 11/30/18 01/16/22 tablet (Nitrostat) diclofenac sodium 1 % topical gel 1 ea topical UD 10/06/22 10/06/22 ferrous sulfate 325 mg (65 mg 325 mg PO QAM 01/16/22 01/16/22 iron) tablet fluorouracil 5 % topical cream 1 applic topical BID 01/16/22 01/16/22 metoprolol succinate 25 mg 12.5 mg PO DAILY 01/16/22 01/16/22 tablet,extended release 24 hr pantoprazole 20 mg tablet,delayed 20 mg PO QAM 01/16/22 01/16/22 release prednisone 5 mg tablet 5 mg PO .DAILY/UD 01/16/22 01/16/22 turmeric root extract 500 mg 500 mg PO QAM 01/16/22 01/16/22 capsule Previous Rx's Medication Instructions Recorded atorvastatin 40 mg tablet 40 mg PO HS #90 tabs 06/06/19 Results & Data (ED) Vital Signs Vital Signs - 24 hr 01/16/22 15:49 01/16/22 18:45 01/16/22 20:00 Temperature 36.6 C 37.0 C Temperature Source Oral Oral Pulse Rate 67 Pulse Rate [Apical] 85 112 H Pulse Rhythm Regular Pulse Rhythm [Apical] Regular Pulse Strength Normal Respiratory Rate 16 16 Respiratory Effort / Characteristics Non-Labored Spontaneous Respiratory Depth Normal Normal Respiratory Pattern Regular Blood Pressure 142/75 H Blood Pressure [Right Arm] 145/75 H 138/73 Blood Pressure Mean 97 Blood Pressure Mean [Right Arm] 98 94 Blood Pressure Position Sitting Pulse Oximetry 100 96 92 Oxygen Delivery Method Room Air Room Air Room Air Sepsis Recent Fever Within 48 Hours No Sepsis New/Unexplained Change in Mental Status No Sepsis Action Taken by Nursing No Action Required 01/16/22 22:00 Temperature Temperature Source Pulse Rate Pulse Rate [Apical] 98 H Pulse Rhythm Pulse Rhythm [Apical] Regular Pulse Strength Respiratory Rate 16 Respiratory Effort / Characteristics Respiratory Depth Normal Respiratory Pattern Blood Pressure Blood Pressure [Right Arm] 156/96 H Blood Pressure Mean Blood Pressure Mean [Right Arm] 116 Blood Pressure Position Pulse Oximetry 94 Oxygen Delivery Method Room Air Sepsis Recent Fever Within 48 Hours Sepsis New/Unexplained Change in Mental Status Sepsis Action Taken by [facility] Medications Current Medication List: was personally reviewed by me Laboratory Data Attestation: I reviewed the patient's lab results. Result diagrams: 01/16/22 16:52 01/16/22 16:52 Lab Results 01/16/22 01/16/22 01/16/22 Range/Units 16:52 16:52 16:52 WBC 20.51 H (4.8-10.8) K/ul RBC 4.28 (3.93-5.22) M/uL Hgb 13.7 (12.0-16.0) g/dl Hct 40.1 (34.1-44.9) % MCV 93.7 (80.0-100.0) fL MCH 32.0 (25.0-34.0) pg MCHC 34.2 (32.0-36.0) g/dL RDW Std Deviation 52.9 H (36.4-46.3) fL RDW Coeff of Danya 15.3 H (11.5-14.5) % Plt Count 311 (130-400) K/uL MPV 9.8 (9.4-12.3) fL Immature Gran % (Auto) 1.4 % Neut % (Auto) 83.3 % Lymph % (Auto) 11.1 % Brown % (Auto) 3.8 % Eos % (Auto) 0.2 % Baso % (Auto) 0.2 % Neut # (Auto) 17.09 H (1.4-6.5) K/uL Lymph # (Auto) 2.27 (1.2-3.4) K/uL Brown # (Auto) 0.78 (0.24-0.82) K/uL Eos # (Auto) 0.04 (0-0.50) K/uL Baso # (Auto) 0.05 (0-0.2) K/uL Immature Gran # (Auto) 0.28 H (0.00-0.02) K/uL Absolute Nucleated RBC 0.02 H (0-0) K/uL Nucleated RBC % (auto) 0.1 % PT 10.3 (9.0-12.0) Seconds INR 1.0 (0.9-1.1) APTT 24.5 (21.0-31.0) Seconds PTT Ratio 0.9 VBG pH (7.36-7.41) VBG pCO2 (38-50) mmHg VBG pO2 mmHg VBG HCO3 mmol/L VBG O2 Saturation % VBG Base Excess mEq/L Sodium 141 (136-145) mmol/L Potassium 4.6 (3.5-5.1) mmol/L Chloride 109 H (98-107) mmol/L Carbon Dioxide 19 L (21-32) mmol/L Anion Gap 13 H (3-11) BUN 37 H (6-23) mg/dl Creatinine 0.56 L (0.6-1.2) mg/dl Est Cr Clr Drug Dosing Not Reportable Est GFR ( Amer) 100.6 ml/min Est GFR (Non-Af Amer) 86.8 ml/min BUN/Creatinine Ratio 66.1 H (10-20) Glucose 129 H (70-99(Fasting)) mg/dl Lactate (0.4-2.0) mmol/L Calcium 9.0 (8.5-10.1) mg/dl Magnesium 1.7 (1.7-2.4) mg/dl Total Bilirubin 0.8 (0.2-1.0) mg/dl AST 14 (13-39) U/L ALT 14 (7-52) U/L Alkaline Phosphatase 67 (34-104) U/L Troponin I High Sens 13.0 (0-14) pg/ml B-Natriuretic Peptide (0-100) pg/ml Total Protein 6.1 (6.0-8.3) gm/dl Albumin 3.9 (3.4-5.0) gm/dl Globulin 2.2 L (2.5-4.0) gm/dl Albumin/Globulin Ratio 1.8 (0.9-2) TSH (0.300-4.500) uIu/ml Urine Color Urine Appearance (Clear) Urine pH (4.5-7.5) Ur Specific [place] (1.000-1.030) Urine Protein (Negative) Urine Glucose (UA) (Negative) Urine Ketones (Negative) Urine Blood (Negative) Urine Nitrite (Negative) Urine Bilirubin (Negative) Urine Urobilinogen (Negative) Ur Leukocyte Esterase (Negative) Urine WBC (Auto) (0-5) /hpf Urine RBC (Auto) (0-4) /hpf U Hyaline Cast (Auto) (0-5) /lpf U Epithel Cells (Auto) (0-5) /lpf Urine Bacteria (Auto) (Negative) SARS-CoV-2 (PCR) (Negative) Influenza Type A (PCR) (Neg) Influenza Type B (PCR) (Neg) RSV (RT-PCR) (Neg) 01/16/22 01/16/22 01/16/22 Range/Units 17:08 18:15 20:25 WBC (4.8-10.8) K/ul RBC (3.93-5.22) M/uL Hgb (12.0-16.0) g/dl Hct (34.1-44.9) % MCV (80.0-100.0) fL MCH (25.0-34.0) pg MCHC (32.0-36.0) g/dL RDW Std Deviation (36.4-46.3) fL RDW Coeff of Danya (11.5-14.5) % Plt Count (130-400) K/uL MPV (9.4-12.3) fL Immature Gran % (Auto) % Neut % (Auto) % Lymph % (Auto) % Brown % (Auto) % Eos % (Auto) % Baso % (Auto) % Neut # (Auto) (1.4-6.5) K/uL Lymph # (Auto) (1.2-3.4) K/uL Brown # (Auto) (0.24-0.82) K/uL Eos # (Auto) (0-0.50) K/uL Baso # (Auto) (0-0.2) K/uL Immature Gran # (Auto) (0.00-0.02) K/uL Absolute Nucleated RBC (0-0) K/uL Nucleated RBC % (auto) % PT (9.0-12.0) Seconds INR (0.9-1.1) APTT (21.0-31.0) Seconds PTT Ratio VBG pH (7.36-7.41) VBG pCO2 (38-50) mmHg VBG pO2 mmHg VBG HCO3 mmol/L VBG O2 Saturation % VBG Base Excess mEq/L Sodium (136-145) mmol/L Potassium (3.5-5.1) mmol/L Chloride (98-107) mmol/L Carbon Dioxide (21-32) mmol/L Anion Gap (3-11) BUN (6-23) mg/dl Creatinine (0.6-1.2) mg/dl Est Cr Clr Drug Dosing Est GFR ( Amer) ml/min Est GFR (Non-Af Amer) ml/min BUN/Creatinine Ratio (10-20) Glucose (70-99(Fasting)) mg/dl Lactate 4.3 H* 1.5 (0.4-2.0) mmol/L Calcium (8.5-10.1) mg/dl Magnesium (1.7-2.4) mg/dl Total Bilirubin (0.2-1.0) mg/dl AST (13-39) U/L ALT (7-52) U/L Alkaline Phosphatase (34-104) U/L Troponin I High Sens (0-14) pg/ml B-Natriuretic Peptide (0-100) pg/ml Total Protein (6.0-8.3) gm/dl Albumin (3.4-5.0) gm/dl Globulin (2.5-4.0) gm/dl Albumin/Globulin Ratio (0.9-2) TSH (0.300-4.500) uIu/ml Urine Color Urine Appearance (Clear) Urine pH (4.5-7.5) Ur Specific [place] (1.000-1.030) Urine Protein (Negative) Urine Glucose (UA) (Negative) Urine Ketones (Negative) Urine Blood (Negative) Urine Nitrite (Negative) Urine Bilirubin (Negative) Urine Urobilinogen (Negative) Ur Leukocyte Esterase (Negative) Urine WBC (Auto) (0-5) /hpf Urine RBC (Auto) (0-4) /hpf U Hyaline Cast (Auto) (0-5) /lpf U Epithel Cells (Auto) (0-5) /lpf Urine Bacteria (Auto) (Negative) SARS-CoV-2 (PCR) POSITIVE A* (Negative) Influenza Type A (PCR) Negative (Neg) Influenza Type B (PCR) Negative (Neg) RSV (RT-PCR) Negative (Neg) 01/16/22 01/16/22 01/16/22 Range/Units 20:25 20:25 20:25 WBC (4.8-10.8) K/ul RBC (3.93-5.22) M/uL Hgb (12.0-16.0) g/dl Hct (34.1-44.9) % MCV (80.0-100.0) fL MCH (25.0-34.0) pg MCHC (32.0-36.0) g/dL RDW Std Deviation (36.4-46.3) fL RDW Coeff of Danya (11.5-14.5) % Plt Count (130-400) K/uL MPV (9.4-12.3) fL Immature Gran % (Auto) % Neut % (Auto) % Lymph % (Auto) % Brown % (Auto) % Eos % (Auto) % Baso % (Auto) % Neut # (Auto) (1.4-6.5) K/uL Lymph # (Auto) (1.2-3.4) K/uL Brown # (Auto) (0.24-0.82) K/uL Eos # (Auto) (0-0.50) K/uL Baso # (Auto) (0-0.2) K/uL Immature Gran # (Auto) (0.00-0.02) K/uL Absolute Nucleated RBC (0-0) K/uL Nucleated RBC % (auto) % PT (9.0-12.0) Seconds INR (0.9-1.1) APTT (21.0-31.0) Seconds PTT Ratio VBG pH 7.28 L (7.36-7.41) VBG pCO2 52 H (38-50) mmHg VBG pO2 21 mmHg VBG HCO3 24 mmol/L VBG O2 Saturation < 60.0 % VBG Base Excess -3.0 mEq/L Sodium (136-145) mmol/L Potassium (3.5-5.1) mmol/L Chloride (98-107) mmol/L Carbon Dioxide (21-32) mmol/L Anion Gap (3-11) BUN (6-23) mg/dl Creatinine (0.6-1.2) mg/dl Est Cr Clr Drug Dosing Est GFR ( Amer) ml/min Est GFR (Non-Af Amer) ml/min BUN/Creatinine Ratio (10-20) Glucose (70-99(Fasting)) mg/dl Lactate (0.4-2.0) mmol/L Calcium (8.5-10.1) mg/dl Magnesium (1.7-2.4) mg/dl Total Bilirubin (0.2-1.0) mg/dl AST (13-39) U/L ALT (7-52) U/L Alkaline Phosphatase (34-104) U/L Troponin I High Sens (0-14) pg/ml B-Natriuretic Peptide 305 H (0-100) pg/ml Total Protein (6.0-8.3) gm/dl Albumin (3.4-5.0) gm/dl Globulin (2.5-4.0) gm/dl Albumin/Globulin Ratio (0.9-2) TSH 0.852 (0.300-4.500) uIu/ml Urine Color Urine Appearance (Clear) Urine pH (4.5-7.5) Ur Specific [place] (1.000-1.030) Urine Protein (Negative) Urine Glucose (UA) (Negative) Urine Ketones (Negative) Urine Blood (Negative) Urine Nitrite (Negative) Urine Bilirubin (Negative) Urine Urobilinogen (Negative) Ur Leukocyte Esterase (Negative) Urine WBC (Auto) (0-5) /hpf Urine RBC (Auto) (0-4) /hpf U Hyaline Cast (Auto) (0-5) /lpf U Epithel Cells (Auto) (0-5) /lpf Urine Bacteria (Auto) (Negative) SARS-CoV-2 (PCR) (Negative) Influenza Type A (PCR) (Neg) Influenza Type B (PCR) (Neg) RSV (RT-PCR) (Neg) 01/16/22 Range/Units 20:53 WBC (4.8-10.8) K/ul RBC (3.93-5.22) M/uL Hgb (12.0-16.0) g/dl Hct (34.1-44.9) % MCV (80.0-100.0) fL MCH (25.0-34.0) pg MCHC (32.0-36.0) g/dL RDW Std Deviation (36.4-46.3) fL RDW Coeff of Danya (11.5-14.5) % Plt Count (130-400) K/uL MPV (9.4-12.3) fL Immature Gran % (Auto) % Neut % (Auto) % Lymph % (Auto) % Brown % (Auto) % Eos % (Auto) % Baso % (Auto) % Neut # (Auto) (1.4-6.5) K/uL Lymph # (Auto) (1.2-3.4) K/uL Brown # (Auto) (0.24-0.82) K/uL Eos # (Auto) (0-0.50) K/uL Baso # (Auto) (0-0.2) K/uL Immature Gran # (Auto) (0.00-0.02) K/uL Absolute Nucleated RBC (0-0) K/uL Nucleated RBC % (auto) % PT (9.0-12.0) Seconds INR (0.9-1.1) APTT (21.0-31.0) Seconds PTT Ratio VBG pH (7.36-7.41) VBG pCO2 (38-50) mmHg VBG pO2 mmHg VBG HCO3 mmol/L VBG O2 Saturation % VBG Base Excess mEq/L Sodium (136-145) mmol/L Potassium (3.5-5.1) mmol/L Chloride (98-107) mmol/L Carbon Dioxide (21-32) mmol/L Anion Gap (3-11) BUN (6-23) mg/dl Creatinine (0.6-1.2) mg/dl Est Cr Clr Drug Dosing Est GFR ( Amer) ml/min Est GFR (Non-Af Amer) ml/min BUN/Creatinine Ratio (10-20) Glucose (70-99(Fasting)) mg/dl Lactate (0.4-2.0) mmol/L Calcium (8.5-10.1) mg/dl Magnesium (1.7-2.4) mg/dl Total Bilirubin (0.2-1.0) mg/dl AST (13-39) U/L ALT (7-52) U/L Alkaline Phosphatase (34-104) U/L Troponin I High Sens (0-14) pg/ml B-Natriuretic Peptide (0-100) pg/ml Total Protein (6.0-8.3) gm/dl Albumin (3.4-5.0) gm/dl Globulin (2.5-4.0) gm/dl Albumin/Globulin Ratio (0.9-2) TSH (0.300-4.500) uIu/ml Urine Color Yellow Urine Appearance Cloudy A (Clear) Urine pH 5.0 (4.5-7.5) Ur Specific [place] > 1.045 H (1.000-1.030) Urine Protein Trace H (Negative) Urine Glucose (UA) Negative (Negative) Urine Ketones Negative (Negative) Urine Blood Trace H (Negative) Urine Nitrite Positive A (Negative) Urine Bilirubin Negative (Negative) Urine Urobilinogen Negative (Negative) Ur Leukocyte Esterase 1+ H (Negative) Urine WBC (Auto) >30 H (0-5) /hpf Urine RBC (Auto) 0-4 (0-4) /hpf U Hyaline Cast (Auto) 0 (0-5) /lpf U Epithel Cells (Auto) 5-10 H (0-5) /lpf Urine Bacteria (Auto) 4+ H (Negative) SARS-CoV-2 (PCR) (Negative) Influenza Type A (PCR) (Neg) Influenza Type B (PCR) (Neg) RSV (RT-PCR) (Neg) Administered Medications Magnesium Sulfate/Dextrose (Magnesium Sulfate / D5w) 1 gm in 100 mls @ 50 mls/hr IV Q2H JERE Stop: 01/17/22 01:44 Last Admin: 01/16/22 22:05 Dose: 50 mls/hr Documented By: VEE Discontinued Medications Acetaminophen (Ofirmev) 1,000 mg in 100 mls @ 400 mls/hr IV NOW STA Stop: 01/16/22 17:08 Last Infusion: 01/16/22 17:18 Dose: 0 mls/hr Documented By: Admin: 01/16/22 17:03 Dose: 400 mls/hr Documented By: QGV Sodium Chloride (Nss 1000ml) 500 mls @ 999 mls/hr IV .Q31M ONE Stop: 01/16/22 17:24 Last Infusion: 01/16/22 17:52 Dose: 0 mls/hr Documented By: Admin: 01/16/22 17:04 Dose: 999 mls/hr Documented By: QGV Cefepime HCl (Maxipime) 2,000 mg in 20 mls @ 5 mls/min IV NOW STA; Protocol Stop: 01/16/22 17:39 Last Admin: 01/16/22 18:42 Dose: 5 mls/min Documented By: QGV Sodium Chloride (Nss 1000ml) 1,000 mls @ 999 mls/hr IV .Q1H1M ONE Stop: 01/16/22 20:06 Last Infusion: 01/16/22 22:19 Dose: 0 mls/hr Documented By: Admin: 01/16/22 21:25 Dose: 999 mls/hr Documented By: VEE Sodium Chloride (Nss) 250 mls @ 999 mls/hr IV .Q16M ONE Stop: 01/16/22 19:21 Last Infusion: 01/16/22 22:19 Dose: 0 mls/hr Documented By: Admin: 01/16/22 20:39 Dose: 999 mls/hr Documented By: THOM Piperacillin Sod/Tazobactam (Sod 4.5 gm/ Dextrose) 120 mls @ 200 mls/hr IV NOW ONE; Protocol Stop: 01/16/22 20:13 Last Infusion: 01/16/22 22:18 Dose: 0 mls/hr Documented By: Admin: 01/16/22 20:38 Dose: 200 mls/hr Documented By: THOM Ioversol (Ioversol 350 Mg 100ml Prefilled Syringe) 92 ml IV ONCE ONE Stop: 01/16/22 18:29 Last Admin: 01/16/22 18:33 Dose: 92 ml Documented By: AMADO Ondansetron HCl (Ondansetron Inj 2 Mg/Ml 2 Ml Vial) 4 mg IV NOW STA Stop: 01/16/22 16:55 Last Admin: 01/16/22 17:03 Dose: 4 mg Documented By: QGV Imaging Data Radiologist's Impression: Chest X-Ray 01/16/22 15:52 XR chest 1V portable HISTORY: weakness COMPARISON: Chest 12/02/2018. FINDINGS: No pneumothorax. No pleural effusions. The cardiac silhouette remains mildly enlarged. There is perihilar interstitial/vascular thickening suggestive of mild congestive change. This has slightly progressed in the interval. There are few small patchy bibasilar densities. There are calcifications within the aortic knob. IMPRESSION: 1. Cardiomegaly with mild central pulmonary vascular congestion without overt edema. 2. Small patchy bibasilar densities may represent atelectasis or pneumonia. ACT 112: Negative or not required by law. Electronically signed by: Jay Reynoso M.D. 01/16/2022 5:32 PM Abdomen/Pelvis CT 01/16/22 16:54 CT SCAN OF THE ABDOMEN AND PELVIS WITH IV CONTRAST CLINICAL HISTORY: Left flank pain. COMPARISON STUDY: Abdominal CT dated 10/17/2018. TECHNIQUE: Following the IV administration of 92 cc of Optiray 350, CT scan of the abdomen and pelvis is performed from the lung bases to the proximal femora. Images are reviewed in the axial, sagittal, and coronal planes. IV contrast was administered without complication. A dose lowering technique was utilized adhering to the principles of ALARA. The examination is degraded by motion artifact. There is also streak artifact from the left arm which could not be elevated above the abdomen. CT DOSE: 320.83 mGy.cm FINDINGS: Lung bases: The heart is mildly enlarged and without pericardial effusion. The coronary arteries and evidence of calcified. Multifocal airspace consolidation i s seen at both lung bases. No pleural effusion is identified. There is a moderate hiatal hernia. The distal esophagus appears circumferentially thick walled. Liver: The contrast-enhanced liver is normal in size, contour, and attenuation. There is no intrahepatic biliary ductal dilatation. The hepatic veins and portal veins are patent. Gallbladder: There are calcified gallstones without CT evidence of acute cholecystitis. Spleen: Normal in size and attenuation. Pancreas: Atrophic and grossly unremarkable. Adrenal glands: Unremarkable. Kidneys: The contrast enhanced kidneys demonstrated cortical atrophy and are without hydronephrosis. The kidneys enhance symmetrically. A 1.6 cm indeterminate cortical hypodensity in the right lower pole is unchanged. Abdominal vasculature: The abdominal aorta is normal in course and caliber noting moderate to advanced atherosclerotic calcification. Bowel: There is moderate colonic diverticulosis without CT evidence of acute diverticulitis. Mild fecal retention is seen throughout the colon. There is no bowel obstruction. The appendix is well-visualized and normal. The proximal duodenum is thickened and edematous, with mild surrounding infiltration. This is best seen on axial image #207. Peritoneum: There is no intraperitoneal free air or abdominal ascites. There is a fat-containing umbilical hernia. Lymphadenopathy: None. Pelvic viscera: The bladder is normal as visualized. The uterus is surgically absent. No adnexal lesion is seen. Skeletal structures: The skeletal structures are osteopenic. There is mild lumbosacral spondylosis. No lytic or blastic lesions are seen. IMPRESSION: 1. The proximal duodenum is thickened and edematous with mild surrounding inflammation. This suggests a nonspecific duodenitis or possibly ulcer disease. Clinical correlation will be required. If clinically warranted this could be further assessed with endoscopy. 2. There is a moderate hiatal hernia with circumferential wall thickening of the distal esophagus. Correlate clinically for evidence of esophagitis. This could also be assessed with endoscopy. 3. Multifocal airspace consolidation is seen at the lung bases and is typical for pneumonia/aspiration pneumonitis. Radiographic follow-up to resolution is recommended. 4. Cardiomegaly. 5. Cholelithiasis. 6. Colonic diverticulosis without CT evidence of acute diverticulitis. 7. Additional findings as above. ACT 112: Negative or not required by law. Electronically signed by: Jeremias Fairbanks M.D. 01/16/2022 6:49 PM Discharge Plan Visit Data Chief Complaint: Illness Stated Complaint: NAUSEA, VOMITING, HEADACHE, URINARY SX ED Provider: Jeremias Edwards Discharge Problem: Weakness, Pneumonia, Acute UTI, COVID-19, Leukocytosis Patient Disposition: Admitted As Inpatient Condition: Fair Forms Stand Alone Forms: [facility] Prescriptions Prescriptions: No Action atorvastatin 40 mg tablet 40 mg PO HS Qty: 90 3RF gabapentin [Neurontin] 600 mg tablet 600 mg PO TID allopurinol 100 mg Tablet 100 mg PO QAM levothyroxine 88 mcg tablet 88 mcg PO UD Rx Instructions: IN THE AM BEFORE BREAKFAST, SIX DAYS PER WEEK. cyanocobalamin (vitamin B-12) 1,000 mcg/mL Solution 1,000 mcg IM MONTHLY Label Comments: about 2 weeks ago duloxetine [Cymbalta] 30 mg capsule,delayed release(DR/EC) 60 mg PO HS cholecalciferol (vitamin D3) [Vitamin D3] 1,000 unit Tablet 2,000 unit PO DAILY Ivig 1 dose IV MONTHLY Rx Instructions: TAKE Thursday OF THE MONTH aspirin [Ecotrin Low Strength] 81 mg tablet,delayed release (DR/EC) 81 mg PO QAM acetaminophen [Tylenol Extra Strength] 500 mg tablet 500 mg PO QID PRN (Reason: Pain) nitroglycerin [Nitrostat] 0.4 mg tablet, sublingual 0.4 mg sublingual UD PRN (Reason: Chest Pain) Rx Instructions: NEEDED FOR CHEST PAIN : ONE TABLET UNDER THE TONGUE EVERY FIVE MINUTES, UP TO 3 DOSES. pantoprazole 20 mg tablet,delayed release (DR/EC) 20 mg PO QAM prednisone 5 mg tablet 5 mg PO .DAILY/UD Rx Instructions: BEGIN 12/26/21 : TAKE 15MG DAILY X 1 MONTH, THEN 10MG DAILY X 1 MONTH, THEN 5MG DAILY THEREAFTER. metoprolol succinate 25 mg tablet extended release 24 hr 12.5 mg PO DAILY Rx Instructions: 1/2 TABLET DAILY turmeric root extract 500 mg Capsule 500 mg PO QAM ferrous sulfate 325 mg (65 mg iron) tablet 325 mg PO QAM fluorouracil 5 % cream 1 applic TOPICAL BID Rx Instructions: APPLY TO NOSE diclofenac sodium 1 % gel 1 ea TOPICAL UD Referrals Referrals: Elizabeth Vanegas DO [Primary Care Provider] - : Pneumonia Qualifiers: Pneumonia type: due to unspecified organism Laterality: bilateral Lung locat ion: lower lobe of lung Qualified Code(s): J18.9 - Pneumonia, unspecified organism Leukocytosis Qualifiers: Leukocytosis type: unspecified Qualified Code(s): D72.829 - Elevated white blood cell count, unspecified
[2022-01-16 17:07] LABS: Basophils # (auto) 0.05 K/uL (0-0.2); Basophils % (auto) 0.2 %; Eosinophils # (auto) 0.04 K/uL (0-0.50); Eosinophils % (auto) 0.2 %; Hematocrit (blood only) 40.1 % (34.1-44.9); Hemoglobin 13.7 g/dl (12.0-16.0); Immature Granulocytes # (auto) 0.28 K/uL (0.00-0.02); Immature Granulocytes % (auto) 1.4 %; Lymphocytes # (auto) 2.27 K/uL (1.2-3.4); Lymphocytes % (auto) 11.1 %; Mean Corpuscular Hgb Conc 34.2 g/dL (32.0-36.0); Mean Corpuscular Volume 93.7 fL (80.0-100.0); Mean Platelet Volume 9.8 fL (9.4-12.3); Monocytes # (auto) 0.78 K/uL (0.24-0.82); Monocytes % (auto) 3.8 %; Neutrophils # (auto) 17.09 K/uL (1.4-6.5); Neutrophils % (auto) 83.3 %; Nucleated RBC # (auto) 0.02 K/uL (0-0); Nucleated RBC % (auto) 0.1 %; Platelet Count 311 K/uL (130-400); RDW Coefficient of Variation 15.3 % (11.5-14.5); RDW Standard Deviation 52.9 fL (36.4-46.3); Red Blood Count 4.28 M/uL (3.93-5.22); White Blood Count 20.51 K/ul (4.8-10.8)
[2022-01-16 17:24] LABS: Partial Thromboplastin Ratio 0.9; Partial Thromboplastin Time 24.5 Seconds (21.0-31.0); Prothrombin Time 10.3 Seconds (9.0-12.0)
[2022-01-16 17:30] LABS: Alanine Aminotransferase 14 U/L (7-52); Albumin Globulin Ratio 1.8 (0.9-2); Albumin Level 3.9 gm/dl (3.4-5.0); Alkaline Phosphatase 67 U/L (34-104); Anion Gap 13 (3-11); Aspartate Aminotransferase 14 U/L (13-39); BUN Creatinine Ratio 66.1 (10-20); Bilirubin,Total 0.8 mg/dl (0.2-1.0); Blood Urea Nitrogen 37 mg/dl (6-23); Carbon Dioxide 19 mmol/L (21-32); Chloride 109 mmol/L (98-107); Est GFR (African American) 100.6 ml/min; Est GFR (Non-African American) 86.8 ml/min; Globulin 2.2 gm/dl (2.5-4.0); Glucose 129 mg/dl (70-99(Fasting)); Magnesium 1.7 mg/dl (1.7-2.4); Potassium 4.6 mmol/L (3.5-5.1); Sodium 141 mmol/L (136-145); Total Protein 6.1 gm/dl (6.0-8.3)
--- NOTE | 2022-01-16 17:33 | XRay Report ---
XR chest 1V portable HISTORY: weakness COMPARISON: Chest 12/02/2018. FINDINGS: No pneumothorax. No pleural effusions. The cardiac silhouette remains mildly enlarged. Ther e is perihilar interstitial/vascular thickening suggestive of mild congestive change. This has slight ly progressed in the interval. There are few small patchy bibasilar densities. There are calcificatio ns within the aortic knob. IMPRESSION: 1. Cardiomegaly with mild central pulmonary vascular congestion without overt edema. 2. Small patchy bibasilar densities may represent atelectasis or pneumonia. ACT 112: Negative or not required by law. Electronically signed by: Jay Reynoso M.D. 01/16/2022 5:32 PM
[2022-01-16] MEDS ORDERED: CEFEPIME 2,000 MG/20 ML VIAL IV STA (17:36)
[2022-01-16] MEDS ORDERED: IOVERSOL 350 MG 100mL Prefilled Syringe IV ONE (18:28)
[2022-01-16 18:42] LABS: Influenza A virus by PCR Negative (Neg); Influenza B virus by PCR Negative (Neg); RSV by PCR Negative (Neg)
[2022-01-16 18:43] LABS: SARS CoV2 RNA(COVID-19) InHosp POSITIVE (Negative)
--- NOTE | 2022-01-16 18:51 | CT Scan Report ---
CT SCAN OF THE ABDOMEN AND PELVIS WITH IV CONTRAST CLINICAL HISTORY: Left flank pain. COMPARISON STUDY: Abdominal CT dated 10/17/2018. TECHNIQUE: Following the IV administration of 92 cc of Optiray 350, CT scan of the abdomen and pelvi s is performed from the lung bases to the proximal femora. Images are reviewed in the axial, sagittal , and coronal planes. IV contrast was administered without complication. A dose lowering technique wa s utilized adhering to the principles of ALARA. The examination is degraded by motion artifact. There is also streak artifact from the left arm which could not be elevated above the abdomen. CT DOSE: 320.83 mGy.cm FINDINGS: Lung bases: The heart is mildly enlarged and without pericardial effusion. The coronary arteries and evidence of calcified. Multifocal airspace consolidation is seen at both lung bases. No pleural effus ion is identified. There is a moderate hiatal hernia. The distal esophagus appears circumferentially thick walled. Liver: The contrast-enhanced liver is normal in size, contour, and attenuation. There is no intrahepa tic biliary ductal dilatation. The hepatic veins and portal veins are patent. Gallbladder: There are calcified gallstones without CT evidence of acute cholecystitis. Spleen: Normal in size and attenuation. Pancreas: Atrophic and grossly unremarkable. Adrenal glands: Unremarkable. Kidneys: The contrast enhanced kidneys demonstrated cortical atrophy and are without hydronephrosis. The kidneys enhance symmetrically. A 1.6 cm indeterminate cortical hypodensity in the right lower fatoumata e is unchanged. Abdominal vasculature: The abdominal aorta is normal in course and caliber noting moderate to advance d atherosclerotic calcification. Bowel: There is moderate colonic diverticulosis without CT evidence of acute diverticulitis. Mild fec al retention is seen throughout the colon. There is no bowel obstruction. The appendix is well-visua lized and normal. The proximal duodenum is thickened and edematous, with mild surrounding infiltratio n. This is best seen on axial image #207. Peritoneum: There is no intraperitoneal free air or abdominal ascites. There is a fat-containing umbi lical hernia. Lymphadenopathy: None. Pelvic viscera: The bladder is normal as visualized. The uterus is surgically absent. No adnexal lesi on is seen. Skeletal structures: The skeletal structures are osteopenic. There is mild lumbosacral spondylosis. N o lytic or blastic lesions are seen. IMPRESSION: 1. The proximal duodenum is thickened and edematous with mild surrounding inflammation. This suggests a nonspecific duodenitis or possibly ulcer disease. Clinical correlation will be required. If clinic ally warranted this could be further assessed with endoscopy. 2. There is a moderate hiatal hernia with circumferential wall thickening of the distal esophagus. Co rrelate clinically for evidence of esophagitis. This could also be assessed with endoscopy. 3. Multifocal airspace consolidation is seen at the lung bases and is typical for pneumonia/aspiratio n pneumonitis. Radiographic follow-up to resolution is recommended. 4. Cardiomegaly. 5. Cholelithiasis. 6. Colonic diverticulosis without CT evidence of acute diverticulitis. 7. Additional findings as above. ACT 112: Negative or not required by law. Electronically signed by: Jeremias Fairbanks M.D. 01/16/2022 6:49 PM
[2022-01-16] MEDS ORDERED: SODIUM CHLORIDE 0.9% 1000ML 1,000 ML IV ONE (19:06)
[2022-01-16] MEDS ORDERED: SODIUM CHLORIDE 0.9% 250 ML IV ONE (19:06)
[2022-01-16] MEDS ORDERED: PIPERACILLIN/TAZOBACTAM 4.5 GM in DEXTROSE 5% 100 ML IV ONE (19:38)
[2022-01-16 20:43] LABS: HCO3 VBG 24 mmol/L; Oxygen Saturation VBG < 60.0 %; PCO2 VBG 52 mmHg (38-50); PO2 VBG 21 mmHg; pH VBG 7.28 (7.36-7.41)
[2022-01-16 21:17] LABS: Appearance Urine Cloudy (Clear); Bacteria Urine Automated 4+ (Negative); Bilirubin Urine Negative (Negative); Blood Urine Trace (Negative); Color Urine Yellow; Glucose Urine UA Negative (Negative); Ketones Urine Negative (Negative); Leukocyte Esterase Urine 1+ (Negative); Nitrite Urine Positive (Negative); Protein Urine Trace (Negative); RBC Urine Automated 0-4 /hpf (0-4); Specific Gravity Urine > 1.045 (1.000-1.030); Urobilinogen Urine Negative (Negative); WBC Urine Automated >30 /hpf (0-5)
[2022-01-16] MEDS ORDERED: ALBUMIN 25% 100 mL 25 GM/100 ML VIAL IV ONE (21:29)
--- NOTE | 2022-01-16 21:29 | History & Physical Report ---
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 difficile Duodenal thickening on CT abdomen pelvis read, possible PUD, patient predisposed by steroid Rx chronic diastolic heart failure (EF 60%, TTE 2020), equivocal volume status (patient intravascularly dry with congestion on CXR/abnormal BNP) hx CAD status post stent hypertension, stable hyperlipidemia, on statin Rx hypothyroidism, euthyroid as of today's TSH Steroid-induced hyperglycemia rule out DM Malnutrition/low BMI Medical telemetry CS, Zosyn Stool C. difficile Check hemoglobin A1c Continue home PPI for possible PUD, outpatient GI consult, wean off prednisone if patient and family agreeable given GI side effects. PT OT eval Nutrition consult RE low BMI l DVT prophylaxis. Heparin subcu DNR Text document was generated using [employer] voice recognition software. It may contain grammatical or spelling errors. Kindly contact undersigned for clarification of any documentation item in question. History of Present Illness Chief Complaint: Weakness Primary Care Provider: Elizabeth Vanegas DO History obtained from patient and records. 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 Last confinement November 2018 for ARF secondary to diarrhea. 2 months ago, patient noted decreased appetite, taste loss, sore throat and congestion symptoms. Patient completed COVID-19 vaccination. Outpatient COVID-19 test last December 02, 2021 was positive. Joint aches and ambulatory dysfunction following illness which improved with prednisone Rx from PCP. 3 weeks ago, patient started by PCP on low-dose prednisone course for joint pain attributed to patient's autoimmune conditions after discussion with family. Patient felt sick after getting home from [place] [employer] office today. Fatigue and transient headache symptoms. Nausea, vomiting, transient flank pain and diarrhea complaints. Junky cough symptoms post emesis. Patient denies chest pain, SOB. Patient felt so weak she could barely stand. IV Cefepime administered at the ER. 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 Allergies Allergy/AdvReac Type Severity Reaction Status Date / Time No Known Drug Allergies Allergy Verified 01/16/22 20:58 Home Medications Medication Instructions Recorded Confirmed Type Ivig 1 dose IV MONTHLY 08/03/18 01/16/22 History allopurinol 100 mg tablet 100 mg PO QAM 08/03/18 01/16/22 History cholecalciferol (vitamin D3) 25 2,000 unit PO DAILY 08/03/18 01/16/22 History mcg (1,000 unit) tablet (Vitamin D3) cyanocobalamin (vitamin B-12) 1,000 mcg IM MONTHLY 08/03/18 01/16/22 History 1,000 mcg/mL injection solution duloxetine 30 mg capsule,delayed 60 mg PO HS 08/03/18 01/16/22 History release (Cymbalta) gabapentin 600 mg tablet 600 mg PO TID 08/03/18 01/16/22 History (Neurontin) levothyroxine 88 mcg tablet 88 mcg PO UD 08/03/18 01/16/22 History acetaminophen 500 mg tablet 500 mg PO QID PRN Pain 10/11/18 01/16/22 History (Tylenol Extra Strength) aspirin 81 mg tablet,delayed 81 mg PO QAM 10/11/18 01/16/22 History release (Ecotrin Low Strength) nitroglycerin 0.4 mg sublingual 0.4 mg sublingual UD PRN Chest Pain 11/30/18 01/16/22 History tablet (Nitrostat) atorvastatin 40 mg tablet 40 mg PO HS #90 tabs 06/06/19 01/16/22 Rx diclofenac sodium 1 % topical gel 1 ea topical UD 01/16/22 01/16/22 History ferrous sulfate 325 mg (65 mg 325 mg PO QAM 01/16/22 01/16/22 History iron) tablet fluorouracil 5 % topical cream 1 applic topical BID 01/16/22 01/16/22 History metoprolol succinate 25 mg 12.5 mg PO DAILY 01/16/22 01/16/22 History tablet,extended release 24 hr pantoprazole 20 mg tablet,delayed 20 mg PO QAM 01/16/22 01/16/22 History release prednisone 5 mg tablet 5 mg PO .DAILY/UD 01/16/22 01/16/22 History turmeric root extract 500 mg 500 mg PO QAM 01/16/22 01/16/22 History capsule Past Med/Surg History Medical History (Updated 01/17/22 @ 01:22 by Luis Enrique Capps MD) CHF (congestive heart failure) Coronary artery disease Gout History of IN (myocardial infarction) HLD (hyperlipidemia) 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 Inclusion body myositis Inflammatory arthritis Neuropathy Severe sepsis Surgical History History of hysterectomy S/P cardiac cath Family History Other Coronary heart disease Social History Smoking Status: Never smoker Second Hand Exposure: No; Hx Alcohol Use: No Hx Substance Use: No Preferred Language: Greenlandic Communication Ability: Effective Steel Chipper Required: No Beliefs That Will Affect Care: None Current Living Situation: Alone Other Information That Helps Us Care for You: No Feels Safe at Home: Yes Safety Concerns: Feels Safe At This Time Assistive Devices: Denture - Upper, Denture - Lower, Glasses, Lift Chair, Raised Toilet Seat, Stair Lift, Walker and Wheelchair Review of Systems Review of Systems: As per HPI, all other systems reviewed and negative Physical Exam Physical Exam: GENERAL: Comfortable, pleasant, underweight, no respiratory distress SKIN: Normal color, warm HEENT: Bespectacled, [place] palpebral conjunctivae, no ptosis, dry buccal mucosa NECK : Supple, no tenderness CHEST : Decreased breath sounds, no tenderness HEART : RRR, no obvious murmurs ABDOMEN: no distention, nontender EXTREMITIES : No LE swelling/tenderness, no other conspicuous deformities noted NEUROLOGIC : Coherent, no facial asymmetry, gait and stance not assessed Results & Data Results & Data ([facility]) Vital Signs (Past 12 Hours) Vital Signs Temp Pulse Pulse Resp BP BP Pulse Ox 01/16/22 20:00 37.0 C 112 H 16 138/73 92 01/16/22 18:45 85 145/75 H 96 01/16/22 15:49 36.6 C 67 16 142/75 H 100 O2 Del Method 01/16/22 20:00 Room Air 01/16/22 18:45 Room Air 01/16/22 15:49 Room Air Laboratory Results Laboratory Results WBC 20.51 K/ul (4.8-10.8) H 01/16/22 16:52 RBC 4.28 M/uL (3.93-5.22) 01/16/22 16:52 Hgb 13.7 g/dl (12.0-16.0) 01/16/22 16:52 Hct 40.1 % (34.1-44.9) 01/16/22 16:52 MCV 93.7 fL (80.0-100.0) 01/16/22 16:52 MCH 32.0 pg (25.0-34.0) 01/16/22 16:52 MCHC 34.2 g/dL (32.0-36.0) 01/16/22 16:52 RDW Std Deviation 52.9 fL (36.4-46.3) H 01/16/22 16:52 RDW Coeff of Danya 15.3 % (11.5-14.5) H 01/16/22 16:52 Plt Count 311 K/uL (130-400) 01/16/22 16:52 MPV 9.8 fL (9.4-12.3) 01/16/22 16:52 Immature Gran % (Auto) 1.4 % 01/16/22 16:52 Neut % (Auto) 83.3 % 01/16/22 16:52 Lymph % (Auto) 11.1 % 01/16/22 16:52 Harris % (Auto) 3.8 % 01/16/22 16:52 Eos % (Auto) 0.2 % 01/16/22 16:52 Baso % (Auto) 0.2 % 01/16/22 16:52 Neut # (Auto) 17.09 K/uL (1.4-6.5) H 01/16/22 16:52 Lymph # (Auto) 2.27 K/uL (1.2-3.4) 01/16/22 16:52 Harris # (Auto) 0.78 K/uL (0.24-0.82) 01/16/22 16:52 Eos # (Auto) 0.04 K/uL (0-0.50) 01/16/22 16:52 Baso # (Auto) 0.05 K/uL (0-0.2) 01/16/22 16:52 Immature Gran # (Auto) 0.28 K/uL (0.00-0.02) H 01/16/22 16:52 Absolute Nucleated RBC 0.02 K/uL (0-0) H 01/16/22 16:52 Nucleated RBC % (auto) 0.1 % 01/16/22 16:52 PT 10.3 Seconds (9.0-12.0) 01/16/22 16:52 INR 1.0 (0.9-1.1) 01/16/22 16:52 APTT 24.5 Seconds (21.0-31.0) 01/16/22 16:52 PTT Ratio 0.9 01/16/22 16:52 VBG pH 7.28 (7.36-7.41) L 01/16/22 20:25 VBG pCO2 52 mmHg (38-50) H 01/16/22 20:25 VBG pO2 21 mmHg 01/16/22 20:25 VBG HCO3 24 mmol/L 01/16/22 20:25 VBG O2 Saturation < 60.0 % 01/16/22 20:25 VBG Base Excess -3.0 mEq/L 01/16/22 20:25 Sodium 141 mmol/L (136-145) 01/16/22 16:52 Potassium 4.6 mmol/L (3.5-5.1) 01/16/22 16:52 Chloride 109 mmol/L (98-107) H 01/16/22 16:52 Carbon Dioxide 19 mmol/L (21-32) L 01/16/22 16:52 Anion Gap 13 (3-11) H 01/16/22 16:52 BUN 37 mg/dl (6-23) H 01/16/22 16:52 Creatinine 0.56 mg/dl (0.6-1.2) L 01/16/22 16:52 Est Cr Clr Drug Dosing Not Reportable 01/16/22 16:52 Est GFR ( Amer) 100.6 ml/min 01/16/22 16:52 Est GFR (Non-Af Amer) 86.8 ml/min 01/16/22 16:52 BUN/Creatinine Ratio 66.1 (10-20) H 01/16/22 16:52 Glucose 129 mg/dl (70-99(Fasting)) H 01/16/22 16:52 Lactate 1.5 mmol/L (0.4-2.0) 01/16/22 20:25 Calcium 9.0 mg/dl (8.5-10.1) 01/16/22 16:52 Magnesium 1.7 mg/dl (1.7-2.4) 01/16/22 16:52 Total Bilirubin 0.8 mg/dl (0.2-1.0) 01/16/22 16:52 AST 14 U/L (13-39) 01/16/22 16:52 ALT 14 U/L (7-52) 01/16/22 16:52 Alkaline Phosphatase 67 U/L (34-104) 01/16/22 16:52 Troponin I High Sens 13.0 pg/ml (0-14) 01/16/22 16:52 B-Natriuretic Peptide 305 pg/ml (0-100) H 01/16/22 20:25 Total Protein 6.1 gm/dl (6.0-8.3) 01/16/22 16:52 Albumin 3.9 gm/dl (3.4-5.0) 01/16/22 16:52 Globulin 2.2 gm/dl (2.5-4.0) L 01/16/22 16:52 Albumin/Globulin Ratio 1.8 (0.9-2) 01/16/22 16:52 TSH 0.852 uIu/ml (0.300-4.500) 01/16/22 20:25 Urine Color Yellow 01/16/22 20:53 Urine Appearance Cloudy (Clear) A 01/16/22 20:53 Urine pH 5.0 (4.5-7.5) 01/16/22 20:53 Ur Specific [place] > 1.045 (1.000-1.030) H 01/16/22 20:53 Urine Protein Trace (Negative) H 01/16/22 20:53 Urine Glucose (UA) Negative (Negative) 01/16/22 20:53 Urine Ketones Negative (Negative) 01/16/22 20:53 Urine Blood Trace (Negative) H 01/16/22 20:53 Urine Nitrite Positive (Negative) A 01/16/22 20:53 Urine Bilirubin Negative (Negative) 01/16/22 20:53 Urine Urobilinogen Negative (Negative) 01/16/22 20:53 Ur Leukocyte Esterase 1+ (Negative) H 01/16/22 20:53 SARS-CoV-2 (PCR) POSITIVE (Negative) A* 01/16/22 17:08 Influenza Type A (PCR) Negative (Neg) 01/16/22 17:08 Influenza Type B (PCR) Negative (Neg) 01/16/22 17:08 RSV (RT-PCR) Negative (Neg) 01/16/22 17:08 Impressions Chest X-Ray 01/16/22 15:52 XR chest 1V portable HISTORY: weakness COMPARISON: Chest 12/02/2018. FINDINGS: No pneumothorax. No pleural effusions. The cardiac silhouette remains mildly enlarged. There is perihilar interstitial/vascular thickening suggestive of mild congestive change. This has slightly progressed in the interval. There are few small patchy bibasilar densities. There are calcifications within the aortic knob. IMPRESSION: 1. Cardiomegaly with mild central pulmonary vascular congestion without overt edema. 2. Small patchy bibasilar densities may represent atelectasis or pneumonia. ACT 112: Negative or not required by law. Electronically signed by: Jay Reynoso M.D. 01/16/2022 5:32 PM Abdomen/Pelvis CT 01/16/22 16:54 CT SCAN OF THE ABDOMEN AND PELVIS WITH IV CONTRAST CLINICAL HISTORY: Left flank pain. COMPARISON STUDY: Abdominal CT dated 10/17/2018. TECHNIQUE: Following the IV administration of 92 cc of Optiray 350, CT scan of the abdomen and pelvis is performed from the lung bases to the proximal femora. Images are reviewed in the axial, sagittal, and coronal planes. IV contrast was administered without complication. A dose lowering technique was utilized adhering to the principles of ALARA. The examination is degraded by motion artifact. There is also streak artifact from the left arm which could not be elevated above the abdomen. CT DOSE: 320.83 mGy.cm FINDINGS: Lung bases: The heart is mildly enlarged and without pericardial effusion. The coronary arteries and evidence of calcified. Multifocal airspace consolidation is seen at both lung bases. No pleural effusion is identified. There is a moderate hiatal hernia. The distal esophagus appears circumferentially thick walled. Liver: The contrast-enhanced liver is normal in size, contour, and attenuation. There is no intrahepatic biliary ductal dilatation. The hepatic veins and portal veins are patent. Gallbladder: There are calcified gallstones without CT evidence of acute cholecystitis. Spleen: Normal in size and attenuation. Pancreas: Atrophic and grossly unremarkable. Adrenal glands: Unremarkable. Kidneys: The contrast enhanced kidneys demonstrated cortical atrophy and are without hydronephrosis. The kidneys enhance symmetrically. A 1.6 cm indeterminate cortical hypodensity in the right lower pole is unchanged. Abdominal vasculature: The abdominal aorta is normal in course and caliber noting moderate to advanced atherosclerotic calcification. Bowel: There is moderate colonic diverticulosis without CT evidence of acute diverticulitis. Mild fecal retention is seen throughout the colon. There is no bowel obstruction. The appendix is well-visualized and normal. The proximal duodenum is thickened and edematous, with mild surrounding infiltration. This is best seen on axial image #207. Peritoneum: There is no intraperitoneal free air or abdominal ascites. There is a fat-containing umbilical hernia. Lymphadenopathy: None. Pelvic viscera: The bladder is normal as visualized. The uterus is surgically absent. No adnexal lesion is seen. Skeletal structures: The skeletal structures are osteopenic. There is mild lumbosacral spondylosis. No lytic or blastic lesions are seen. IMPRESSION: 1. The proximal duodenum is thickened and edematous with mild surrounding inflammation. This suggests a nonspecific duodenitis or possibly ulcer disease. Clinical correlation will be required. If clinically warranted this could be further assessed with endoscopy. 2. There is a moderate hiatal hernia with circumferential wall thickening of the distal esophagus. Correlate clinically for evidence of esophagitis. This could also be assessed with endoscopy. 3. Multifocal airspace consolidation is seen at the lung bases and is typical for pneumonia/aspiration pneumonitis. Radiographic follow-up to resolution is recommended. 4. Cardiomegaly. 5. Cholelithiasis. 6. Colonic diverticulosis without CT evidence of acute diverticulitis. 7. Additional findings as above. ACT 112: Negative or not required by law. Electronically signed by: Jeremias Fairbanks M.D. 01/16/2022 6:49 PM Diagnostic Findings EKG as per my interpretation : Rate 80, NSR, normal axis, T wave inversion lateral leads
[2022-01-16 21:42] LABS: Cast Urine Automated 0 /lpf (0-5)
[2022-01-16] MEDS: MAGNESIUM SULFATE / D5W 1 GM/100 ML BAG IV SCH ×2 (22:05→23:42)
[2022-01-17] MEDS ORDERED: DICLOFENAC SOD 1% GEL 100 GM TUBE EXT PRN (01:12)
[2022-01-17] MEDS ORDERED: PROMETHAZINE HCL 6.25 MG in SODIUM CHLORIDE 0.9% 50 ML IV PRN (01:12)
[2022-01-17] MEDS: HEPARIN SOD 5,000 UNIT/0.5 ML VIAL SQ SCH ×4 (01:48→21:03)
[2022-01-17] MEDS: PIPERACILLIN/TAZOBACTAM 3.375 GM in DEXTROSE 5% 100 ML IV SCH ×3 (01:51→18:21)
[2022-01-17] MEDS: LEVOTHYROXINE SODIUM 88 MCG TABLET PO SCH (05:53)
[2022-01-17] MEDS: predniSONE 5 MG TAB PO SCH (08:03)
[2022-01-17] MEDS: allopurinoL 100 MG TAB PO SCH (08:03)
[2022-01-17] MEDS: GABAPENTIN 600 MG TAB PO SCH ×3 (08:03→21:05)
[2022-01-17] MEDS: PANTOprazole 40 MG TAB PO SCH (08:03)
[2022-01-17] MEDS: METOPROLOL SUCC 25MG EXT REL TAB PO SCH (08:03)
[2022-01-17] MEDS: ASPIRIN 81 MG ECTAB PO SCH (08:04)
[2022-01-17 09:00] LABS: Hematocrit (blood only) 35.4 % (34.1-44.9); Hemoglobin 11.6 g/dl (12.0-16.0); Mean Corpuscular Hemoglobin 32.2 pg (25.0-34.0); Mean Corpuscular Hgb Conc 32.8 g/dL (32.0-36.0); Mean Corpuscular Volume 98.3 fL (80.0-100.0); Mean Platelet Volume 10.1 fL (9.4-12.3); Platelet Count 220 K/uL (130-400); RDW Coefficient of Variation 15.3 % (11.5-14.5); RDW Standard Deviation 54.8 fL (36.4-46.3); White Blood Count 16.26 K/ul (4.8-10.8)
[2022-01-17] MEDS ORDERED: FERROUS SULFATE 325 MG TAB PO SCH (09:00)
[2022-01-17 09:19] LABS: BUN Creatinine Ratio 49.1 (10-20); Calcium 8.9 mg/dl (8.5-10.1); Creatinine Clr Calc Pharmacy 62.9 ml/min; Est GFR (African American) 100.1 ml/min; Est GFR (Non-African American) 86.3 ml/min; Potassium 4.1 mmol/L (3.5-5.1)
[2022-01-17 09:42] LABS: Basophils # (auto) 0.03 K/uL (0-0.2); Basophils % (auto) 0.2 %; Eosinophils # (auto) 0.22 K/uL (0-0.50); Eosinophils % (auto) 1.4 %; Immature Granulocytes # (auto) 0.17 K/uL (0.00-0.02); Lymphocytes # (auto) 1.43 K/uL (1.2-3.4); Lymphocytes % (auto) 8.8 %; Monocytes # (auto) 0.33 K/uL (0.24-0.82); Neutrophils # (auto) 14.08 K/uL (1.4-6.5); Neutrophils % (auto) 86.6 %
[2022-01-17] MEDS: ACETAMINOPHEN 500 MG TAB PO PRN (09:44)
--- NOTE | 2022-01-17 13:38 | Electrocardiogram Report ---
Test Reason : Blood Pressure : / mmHG Vent. Rate : 078 BPM Atrial Rate : 078 BPM P-R Int : 122 ms QRS Dur : 068 ms QT Int : 364 ms P-R-T Axes : 060 011 151 degrees QTc Int : 414 ms Normal sinus rhythm with sinus arrhythmia Possible Left atrial enlargement Anterior infarct , age undetermined Abnormal ECG When compared with ECG of 30-NOV-2018 04:18, Premature atrial complexes are no longer Present ST no longer elevated in Inferior leads T wave inversion now evident in Inferior leads Inverted T waves have replaced nonspecific T wave abnormality in Lateral leads Confirmed by Hank Demarco ([id number]) on 01/17/2022 1:38:04 PM Referred By: REFERRED SELF Confirmed By:Armando Demarco
--- NOTE | 2022-01-17 15:27 | Fluoroscopy Report ---
FL video swallow HISTORY: assess for aspiration TECHNIQUE: Video fluoroscopic evaluation of swallowing was performed in the AP and lateral projection s by the speech pathology staff. The patient is fed nectar-thick and thin liquid barium, a barium coa tamela wafer, and barium pudding. FLUOROSCOPY TIME: 4.2 minutes. A cine loop submitted. COMPARISON STUDY: None. FINDINGS: Overall, poor pharyngeal constriction with decreased hyoid excursion and epiglottic deflect ion. This results in a large amount of residue throughout the hypopharynx with multiple episodes of a spiration seen throughout the examination. There is also focal moderate to severe narrowing at the up per esophageal sphincter. This raises the possibility of a proximal esophageal stricture or mass. IMPRESSION: 1. 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 This raises the possibility of a proximal esophageal stricture or mass. Endoscopy recommended for further evaluation. 2. Poor pharyngeal constriction resulting in a large amount of residue throughout the hypopharynx wit h multiple episodes of aspiration seen throughout the examination. 3. Please see the speech pathologist report for detailed findings and recommendations. ACT 112: Negative or not required by law. Electronically signed by: Jay Reynoso M.D. 01/17/2022 3:26 PM
--- NOTE | 2022-01-17 16:28 | Hospitalist Progress Note ---
Date of Service January 17, 2022 Assessment & Plan (1) Pneumonia: (2) Sepsis: Plan: Presented on admission with weakness and productive cough Met sepsis criteria on admission with elevated WBC, tachycardia and elevate lactic acid CXR showed multifocal airspace consolidation is seen at the lung bases Video swallow showed poor pharyngeal constriction resulting in a large amount of residue throughout the hypopharynx with multiple episodes of aspiration seen throughout the examination. Currently on IV Zosyn WBC trending down and lactate normalized Blood cx and urine cx pending COVID 19 Pt was diagnosed on 12/02 The positive COVID 19 is not a re-infection She does not meed any criteria for dexamethasone and redemsivir since pt saturated well on RA Continue incentive spirometry and flutter valve Guaifenesin added Continue monitor closely Fall weakness Ambulatory dysfunction Continue PT/OT - Recommended 24hr care or rehab due to high risk of care Fall precaution Narrowing of the esophageal Video swallow showed focal moderate to severe narrowing of the upper esophageal sphincter. This raises the possibility of a proximal esophageal stricture or mass. Will consult Gastro case discussed with speech that recommended full liquid diet for now Continue aspiration precaution Coronary artery disease: STEMI with PCI's of RCA and left circumflex with drug-eluting stents July 2018. No anginal symptoms. Continue aspirin, metoprolol succinate, atorvastatin. Cardiomyopathy: History of ischemic cardiomyopathy. No evidence of CHF clinically or radiographically. Continue monitor for sign of volume overloa 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: TSH normal. Continue levothyroxine. Anemia: Hgb stable DVT prophylaxis on heparin subq Code status DNR Admission and Anticipated Discharge Date Admission Date: January 16, 2022 Subjective Pt was seen and examined for follow up weakness and PNA Sitting in chair with no distress with daughter at bedside Pt said that she feels fine Daughter said that pt usually cough when eating She is very anxious to be discharge soon She agreed to go to rehab Denies ny chest pain, palpitation, dizziness and SOB Review of Systems Review of Systems: All systems reviewed & are unremarkable except as noted in Subjective Physical Exam Physical Exam: General- No acute distress Head- atraumatic Eyes- PERRL, EOMI, ENT- oropharynx clear Neck- supple, no JVD Lungs- diminished BS Heart- regular rhythm; no murmur Abdomen- normal bowel sounds, soft, nontender Extremities- no calf tenderness Neuro- alert, oriented x 3; PERRL, EOMI; no facial palsy; no dysarthria Skin- warm & dry Results & Data Results & Data ([facility]) Vital Signs (Past 12 Hours) Vital Signs Temp Pulse Pulse Resp BP Pulse Ox O2 Del Method 01/17/22 12:00 36.8 C 66 19 109/58 L 94 Room Air 01/17/22 10:53 Room Air 01/17/22 10:53 63 01/17/22 08:43 36.6 C 74 18 145/80 H 94 Room Air (1) Pneumonia Laterality: bilateral Lung location: lower lobe of lung Pneumonia type: due to unspecified organism Qualified Code(s): J18.9 - Pneumonia, unspecified organism
[2022-01-17] MEDS: ATORVASTATIN 40 MG TAB PO SCH (21:05)
[2022-01-17] MEDS: DULoxetine HCL 60 MG CAP PO SCH (21:05)
[2022-01-17] MEDS ORDERED: guaiFENesin 200 MG TAB PO PRN (22:39)
[2022-01-18] MEDS: PIPERACILLIN/TAZOBACTAM 3.375 GM in DEXTROSE 5% 100 ML IV SCH ×3 (01:52→17:35)
[2022-01-18] MEDS: HEPARIN SOD 5,000 UNIT/0.5 ML VIAL SQ SCH ×3 (05:27→22:05)
[2022-01-18] MEDS: LEVOTHYROXINE SODIUM 88 MCG TABLET PO SCH (05:31)
[2022-01-18 06:34] LABS: Hematocrit (blood only) 30.7 % (34.1-44.9); Hemoglobin 10.3 g/dl (12.0-16.0); Mean Corpuscular Hemoglobin 32.6 pg (25.0-34.0); Mean Corpuscular Hgb Conc 33.6 g/dL (32.0-36.0); Mean Corpuscular Volume 97.2 fL (80.0-100.0); Mean Platelet Volume 10.2 fL (9.4-12.3); Platelet Count 195 K/uL (130-400); RDW Coefficient of Variation 14.9 % (11.5-14.5); RDW Standard Deviation 53.8 fL (36.4-46.3); Red Blood Count 3.16 M/uL (3.93-5.22); White Blood Count 14.68 K/ul (4.8-10.8)
[2022-01-18 07:22] LABS: BUN Creatinine Ratio 35.4 (10-20); Calcium 8.6 mg/dl (8.5-10.1); Creatinine Clr Calc Pharmacy 55.2 ml/min; Est GFR (African American) 95.8 ml/min; Est GFR (Non-African American) 82.7 ml/min; Potassium 3.5 mmol/L (3.5-5.1)
[2022-01-18] MEDS: GABAPENTIN 600 MG TAB PO SCH ×3 (08:23→21:05)
[2022-01-18] MEDS: predniSONE 5 MG TAB PO SCH (08:23)
[2022-01-18] MEDS: allopurinoL 100 MG TAB PO SCH (08:23)
[2022-01-18] MEDS: ASPIRIN 81 MG ECTAB PO SCH (08:23)
[2022-01-18] MEDS: PANTOprazole 40 MG TAB PO SCH (08:23)
[2022-01-18] MEDS: METOPROLOL SUCC 25MG EXT REL TAB PO SCH (08:23)
[2022-01-18] MEDS: ACETAMINOPHEN 500 MG TAB PO PRN (09:44)
--- NOTE | 2022-01-18 15:29 | Gastroenterology Progress Note ---
Date of Service January 18, 2022 Assessment & Plan Admission and Anticipated Discharge Date Admission Date: January 16, 2022 Subjective I am unable to review xrays as PACs has been down this afternoon. Will re- attempt consult tomorrow. Results & Data ([facility]) Vital Signs (Past 12 Hours) Vital Signs Temp Pulse Pulse Resp BP BP Pulse Ox 01/18/22 15:11 54 L 01/18/22 12:38 37.0 C 54 L 18 107/66 93 01/18/22 10:49 01/18/22 10:48 55 L 01/18/22 07:35 36.7 C 55 L 19 126/71 92 O2 Del Method 01/18/22 15:11 01/18/22 12:38 Room Air 01/18/22 10:49 Room Air 01/18/22 10:48 01/18/22 07:35 Room Air
--- NOTE | 2022-01-18 16:46 | Electrocardiogram Report ---
Test Reason : Blood Pressure : / mmHG Vent. Rate : 057 BPM Atrial Rate : 057 BPM P-R Int : 136 ms QRS Dur : 088 ms QT Int : 420 ms P-R-T Axes : 065 -01 147 degrees QTc Int : 408 ms Sinus bradycardia Possible Left atrial enlargement Inferior infarct , age undetermined Anterior infarct (cited on or before 03-AUG-2018) Abnormal ECG When compared with ECG of 16-JAN-2022 16:33, Inferior infarct is now Present Confirmed by Peterson Leon ([id number]) on 01/18/2022 4:46:08 PM Referred By: REFERRED SELF Confirmed By:Peterson Leon
--- NOTE | 2022-01-18 16:55 | Hospitalist Progress Note ---
Date of Service January 18, 2022 Assessment & Plan (1) Pneumonia: (2) Sepsis: Plan: Presented on admission with weakness and productive cough Met sepsis criteria on admission with elevated WBC, tachycardia and elevate lactic acid CXR showed multifocal airspace consolidation is seen at the lung bases Video swallow showed poor pharyngeal constriction resulting in a large amount of residue throughout the hypopharynx with multiple episodes of aspiration seen throughout the examination. Currently on IV Zosyn for presumed aspiration pneumonia WBC trending down and lactate normalized-resuscitated and clinically improved. Blood cx and urine cx pending COVID 19 Pt was diagnosed on 12/02 The positive COVID 19 is not a re-infection She does not meed any criteria for dexamethasone and redemsivir since pt saturated well on RA Continue incentive spirometry and flutter valve Guaifenesin added Fall weakness Ambulatory dysfunction Continue PT/OT - Recommended 24hr care or rehab due to high risk of care Fall precaution Narrowing of the esophagus Video swallow showed focal moderate to severe narrowing of the upper esophageal sphincter. This raises the possibility of a proximal esophageal stricture or mass. GI consulted for this and distal esophageal swelling. On PP therapy in case of PUD-higher risk with ongoing steroid use. case discussed with speech that recommended full liquid diet for now Continue aspiration precaution Coronary artery disease: STEMI with PCI's of RCA and left circumflex with drug-eluting stents July 2018. No anginal symptoms but did have inverted TWI in I AVL which was again seen on repeat EKG. Patient with known h/o ischemic cardiomyopathy. She reports increased fatigue Updated echo was ordered. Continue aspirin, metoprolol succinate, atorvastatin. Cardiomyopathy: History of ischemic cardiomyopathy. Euvolemic, compensated on exam. 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: chronic, stable. Cont synthroid per home regimen Anemia: Hgb stable DVT prophylaxis on heparin subq Code status DNR Dipso-uncertain at this time. Nia Swan DO [facility] Hospitalist Admission and Anticipated Discharge Date Admission Date: January 16, 2022 Subjective 81-year-old female presented with severe sepsis. 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 Source was multifactorial including possible aspiration pneumonia versus complicated urinary tract infection. Patient reports today she is doing well and feeling hungry. She remains on full liquid diet per speech and has yet to be seen by GI with recommendations pending. She does report significant fatigue which is likely multifactorial and we discussed this. She reports feeling she was not completely over COVID and requested she could stay on prednisone as this was helping her joint pain and stiffness. She reports having seen rheumatology prior to coming in to the hospital. Review of Systems Review of Systems: All systems reviewed negative except as indicated above. Physical Exam Physical Exam: CONSTITUTIONAL: WNWD, vitals as above, generally well- appearing, NAD EYES: normal conjunctivae, no scleral icterus, ENT: external ear and nose normal, MMM NECK: trachea midline RESPIRATORY: clear to auscultation bilaterally, no crackles, rales or wheezes, normal respiratory effort CARDIOVASCULAR: regular rate and rhythm, S1 and 2 heard without murmurs, gallops or rubs, no JVD, no peripheral edema CHEST: inspection of chest was normal GASTROINTESTINAL: soft, nontender, ND, no guarding MUSCULOSKELETAL: moves all extremities equally, head is normocephalic and atraumatic, SKIN: warm and dry, NEUROLOGIC: CN 2-12 grossly intact, no sensory deficit, normal cognition, normal speech, no tremor PSYCHIATRIC: alert cooperative and oriented to person, place and time. Results & Data Results & Data ([facility]) Vital Signs (Past 12 Hours) Vital Signs Temp Pulse Pulse Resp BP BP Pulse Ox 01/18/22 15:11 54 L 01/18/22 12:38 37.0 C 54 L 18 107/66 93 01/18/22 10:49 01/18/22 10:48 55 L 01/18/22 07:35 36.7 C 55 L 19 126/71 92 O2 Del Method 01/18/22 15:11 01/18/22 12:38 Room Air 01/18/22 10:49 Room Air 01/18/22 10:48 01/18/22 07:35 Room Air Laboratory Results Short CBC 01/18/22 Range/Units 05:50 WBC 14.68 H (4.8-10.8) K/ul Hgb 10.3 L (12.0-16.0) g/dl Hct 30.7 L (34.1-44.9) % Plt Count 195 (130-400) K/uL BMP 01/18/22 05:50 Sodium 136 Potassium 3.5 Chloride 106 Carbon Dioxide 22 BUN 23 Creatinine 0.65 Glucose 95 Calcium 8.6 Medications Administered Current Inpatient Medications Acetaminophen (Acetaminophen 500 Mg Tab) 500 mg PO QID PRN PRN Reason: Pain Stop: 02/16/22 01:11 EST Last Admin: 01/18/22 09:44 Dose: 500 mg [facility]opurinol ([facility] 100 Mg Tab) [facility] Stop: 02/16/22 08:59 Last Admin: 01/18/22 08:23 Dose: 100 mg Aspirin (Aspirin 81 Mg Ectab) [facility] Stop: 02/16/22 08:59 Last Admin: 01/18/22 08:23 Dose: 81 mg Atorvastatin Calcium (Atorvastatin 40 Mg Tab) 40 mg PO [facility] Stop: 02/16/22 20:59 Last Admin: 01/17/22 21:05 Dose: 40 mg Diclofenac Sodium (Diclofenac Sod 1% Gel 100 Gm Tube) 2 gm EXT QID PRN; Protocol PRN Reason: joint pain Stop: 02/16/22 01:11 EST Duloxetine HCl (Duloxetine Hcl 60 Mg Cap) 60 mg PO [facility] Stop: 02/16/22 20:59 Last Admin: 01/17/22 21:05 Dose: 60 mg Ferrous Sulfate (Ferrous Sulfate 325 Mg Tab) 325 mg PO [facility] Stop: 02/16/22 08:59 Last Admin: 01/17/22 08:03 Dose: 325 mg Gabapentin (Gabapentin 600 Mg Tab) 600 mg PO TID [facility] Stop: 02/16/22 08:59 Last Admin: 01/18/22 14:03 Dose: 600 mg Guaifenesin (Guaifenesin 200 Mg Tab) 200 mg PO Q8H PRN PRN Reason: cough Stop: 02/16/22 22:44 Heparin Sodium (Porcine) (Heparin Sod 5,000 Unit/0.5 Ml Vial) 5,000 units SQ Q8 [facility] Stop: 02/16/22 01:11 EST Last Admin: 01/18/22 14:03 Dose: 5,000 units Promethazine HCl 6.25 mg/ (Sodium Chloride) 50.25 mls @ 201 mls/hr IV Q6H PRN PRN Reason: Nausea And Vomiting Stop: 02/16/22 01:11 EST Piperacillin Sod/Tazobactam (Sod 3.375 gm/ Dextrose) 115 mls @ 28.75 mls/hr IV Q8H [facility]; Protocol Stop: 01/24/22 01:59 Last Infusion: 01/18/22 14:02 Dose: Infused Levothyroxine Sodium (Levothyroxine Sodium 88 Mcg Tablet) 88 mcg PO Lamin@0630 [facility] Stop: 02/16/22 06:29 Last Admin: 01/18/22 05:31 Dose: 88 mcg Metoprolol Succinate (Metoprolol Succ 25mg Ext Rel Tab) 12.5 mg PO DAILY [facility] Stop: 02/16/22 08:59 Last Admin: 01/18/22 08:23 Dose: 12.5 mg Pantoprazole Sodium (Pantoprazole 40 Mg Tab) 40 mg PO QAM [facility] Stop: 02/16/22 08:59 Last Admin: 01/18/22 08:23 Dose: 40 mg Prednisone (Prednisone 5 Mg Tab) 15 mg PO DAILY [facility]; Taper Stop: 02/24/23 08:59 Last Admin: 01/18/22 08:23 Dose: 15 mg (1) Pneumonia Laterality: bilateral Lung location: lower lobe of lung Pneumonia type: aspiration pneumonia
[2022-01-18] MEDS: DULoxetine HCL 60 MG CAP PO SCH (21:04)
[2022-01-18] MEDS: ATORVASTATIN 40 MG TAB PO SCH (21:05)
[2022-01-19] MEDS: PIPERACILLIN/TAZOBACTAM 3.375 GM in DEXTROSE 5% 100 ML IV SCH ×3 (01:31→17:19)
[2022-01-19] MEDS: HEPARIN SOD 5,000 UNIT/0.5 ML VIAL SQ SCH ×3 (05:24→21:33)
[2022-01-19 07:32] LABS: Hematocrit (blood only) 30.6 % (34.1-44.9); Hemoglobin 10.2 g/dl (12.0-16.0); Mean Corpuscular Hemoglobin 31.8 pg (25.0-34.0); Mean Corpuscular Hgb Conc 33.3 g/dL (32.0-36.0); Mean Corpuscular Volume 95.3 fL (80.0-100.0); Mean Platelet Volume 10.1 fL (9.4-12.3); Platelet Count 190 K/uL (130-400); RDW Coefficient of Variation 14.4 % (11.5-14.5); RDW Standard Deviation 50.5 fL (36.4-46.3); Red Blood Count 3.21 M/uL (3.93-5.22); White Blood Count 10.54 K/ul (4.8-10.8)
[2022-01-19 08:11] LABS: BUN Creatinine Ratio 29.2 (10-20); Calcium 8.8 mg/dl (8.5-10.1); Creatinine Clr Calc Pharmacy 55.2 ml/min; Est GFR (African American) 95.8 ml/min; Est GFR (Non-African American) 82.7 ml/min; Potassium 3.4 mmol/L (3.5-5.1)
[2022-01-19] MEDS ORDERED: POTASSIUM CHLORIDE CRTAB 20 MEQ TABCR PO STA (08:29)
[2022-01-19] MEDS ORDERED: amLODIPine BESYLATE 5 MG TAB PO SCH (09:00)
[2022-01-19] MEDS: ASPIRIN 81 MG ECTAB PO SCH (09:46)
[2022-01-19] MEDS: predniSONE 5 MG TAB PO SCH (09:46)
[2022-01-19] MEDS: PANTOprazole 40 MG TAB PO SCH (09:47)
[2022-01-19] MEDS: allopurinoL 100 MG TAB PO SCH (09:47)
[2022-01-19] MEDS: GABAPENTIN 600 MG TAB PO SCH ×3 (09:47→20:34)
[2022-01-19] MEDS: METOPROLOL SUCC 25MG EXT REL TAB PO SCH (09:48)
[2022-01-19] MEDS: ACETAMINOPHEN 500 MG TAB PO PRN (09:48)
--- NOTE | 2022-01-19 14:23 | Consultation ---
Date of Consultation January 19, 2022 History of Present Illness Attending Physician: Orlando Huang MD History of Present Illness 81 yo female with inclusion body myositis followed in [place] on IVIG, recent COVID pneumonia, recent steroids, admit with sepsis secondary to aspriation pneumonia. A contrast CT was ordered in ER which showed duodenal thickening. A speech eval was ordered, which showed marked bolus retention in hypopharynx, pharyngeal muscle weakness, tight UES, aspiration. There was also a concern for esophageal dysmotility. She tells me that she has longstanding dysphagia to solids localized to neck. Denies coughing with PO intake, regurgitation, or drooling; although she does report that she sometimes gets SOB and cannot talk when she eats. No nocturnal cough. She has had speech evals in [place] and [place] which are reportedly normal. Regarding duodenal thickening - she denies abdominal pain or NSAID use other than daily ASA. She has been on prednisone recently. She is also on PPI. She is currently on full liquid diet; protonix once daily, Zosyn. VS stable, off O2 with sats in the low 90s on RA. She remains in isolation due to COVID. She reports reflux and diarrhea since admission. C diff neg. PE: comfortable, pleasant. HEENT: Well fitting dentures, mouth is dry without thrush or ulcer. Absent gag. Abd: soft, NT ND Labs and imaging reviewed A/p: Dysphagia - Likely related to inclusion body myositis. Diet recommendations per speech. Please discuss with rheumatology if increasing immunosuppression may be helpful. I did discuss PEG tube with pt, which pt would consider "as a last resort." Consider UES myotomy per advanced GI. Duodenal thickening - Agree with empiric PPI, will need eventual EGD. Abx associated diarrhea - Can use Immodium or colestid if needed. Allergies Allergy/AdvReac Type Severity Reaction Status Date / Time No Known Drug Allergies Allergy Verified 01/16/22 20:58 Home Medications Medication Instructions Recorded Confirmed Type Ivig 1 dose IV MONTHLY 08/03/18 01/16/22 History allopurinol 100 mg tablet 100 mg PO QAM 08/03/18 01/16/22 History cholecalciferol (vitamin D3) 25 2,000 unit PO DAILY 08/03/18 01/16/22 History mcg (1,000 unit) tablet (Vitamin D3) cyanocobalamin (vitamin B-12) 1,000 mcg IM MONTHLY 08/03/18 01/16/22 History 1,000 mcg/mL injection solution duloxetine 30 mg capsule,delayed 60 mg PO HS 08/03/18 01/16/22 History release (Cymbalta) gabapentin 600 mg tablet 600 mg PO TID 08/03/18 01/16/22 History (Neurontin) levothyroxine 88 mcg tablet 88 mcg PO UD 08/03/18 01/16/22 History acetaminophen 500 mg tablet 500 mg PO QID PRN Pain 10/11/18 01/16/22 History (Tylenol Extra Strength) aspirin 81 mg tablet,delayed 81 mg PO QAM 10/11/18 01/16/22 History release (Ecotrin Low Strength) nitroglycerin 0.4 mg sublingual 0.4 mg sublingual UD PRN Chest Pain 11/30/18 01/16/22 History tablet (Nitrostat) atorvastatin 40 mg tablet 40 mg PO HS #90 tabs 06/06/19 01/16/22 Rx diclofenac sodium 1 % topical gel 1 ea topical UD 01/16/22 01/16/22 History ferrous sulfate 325 mg (65 mg 325 mg PO QAM 01/16/22 01/16/22 History iron) tablet fluorouracil 5 % topical cream 1 applic topical BID 01/16/22 01/16/22 History metoprolol succinate 25 mg 12.5 mg PO DAILY 01/16/22 01/16/22 History tablet,extended release 24 hr pantoprazole 20 mg tablet,delayed 20 mg PO QAM 01/16/22 01/16/22 History release prednisone 5 mg tablet 5 mg PO .DAILY/UD 01/16/22 01/16/22 History turmeric root extract 500 mg 500 mg PO QAM 01/16/22 01/16/22 History capsule Patient History Medical History (Updated 01/18/22 @ 18:56 by Nia Swan DO) CHF (congestive heart failure) Coronary artery disease Gout History of VA (myocardial infarction) HLD (hyperlipidemia) 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 Inclusion body myositis Inflammatory arthritis Neuropathy Severe sepsis Surgical History History of hysterectomy S/P cardiac cath Family History Other Coronary heart disease Social History Smoking Status: Never smoker Second Hand Exposure: No; Hx Alcohol Use: No Hx Substance Use: No Preferred Language: German Communication Ability: Effective Health Sciences Program Coordinator Required: No Beliefs That Will Affect Care: None Current Living Situation: Alone Other Information That Helps Us Care for You: No Feels Safe at Home: Yes Safety Concerns: Feels Safe At This Time Assistive Devices: Cane, Stair Lift, Walker and Wheelchair Results & Data ([facility]) Vital Signs (Past 12 Hours) Vital Signs Temp Pulse Pulse Resp BP BP Pulse Ox 01/19/22 13:19 01/19/22 11:16 36.6 C 58 L 19 148/72 H 94 01/19/22 10:44 51 L 01/19/22 07:00 184/79 H 01/19/22 06:34 36.5 C 51 L 18 179/72 H 95 01/19/22 04:25 36.5 C 58 L 18 172/88 H 94 O2 Del Method 01/19/22 13:19 Room Air 01/19/22 11:16 Room Air 01/19/22 10:44 01/19/22 07:00 01/19/22 06:34 Room Air 01/19/22 04:25 Room Air
[2022-01-19 17:20] LABS: Anion Gap 8.6 (3-11)
[2022-01-19] MEDS ORDERED: amLODIPine BESYLATE 5 MG TAB PO ONE (20:00)
[2022-01-19] MEDS: LOPERAMIDE HCL 2 MG CAP PO PRN (20:32)
[2022-01-19] MEDS: DULoxetine HCL 60 MG CAP PO SCH (20:33)
[2022-01-19] MEDS: ATORVASTATIN 40 MG TAB PO SCH (20:34)
--- NOTE | 2022-01-19 21:02 | Hospitalist Progress Note ---
Date of Service January 19, 2022 Assessment & Plan (1) Pneumonia: (2) Sepsis: Plan: Presented on admission with weakness and productive cough Met sepsis criteria on admission with elevated WBC, tachycardia and elevate lactic acid CXR showed multifocal airspace consolidation is seen at the lung bases Video swallow showed poor pharyngeal constriction resulting in a large amount of residue throughout the hypopharynx with multiple episodes of aspiration seen throughout the examination. Currently on IV Zosyn for presumed aspiration pneumonia WBC and lactate normalized Blood culture and urine culture no growth Clinically improved COVID 19 Pt was diagnosed on 12/02 The positive COVID 19 is not a re-infection She does not meed any criteria for dexamethasone and redemsivir since pt saturated well on RA Continue incentive spirometry and flutter valve Guaifenesin added Fall weakness Ambulatory dysfunction Continue PT/OT - Recommended 24hr care or rehab due to high risk of care Fall precaution Narrowing of the esophagus Dysphagia. Likely related to inclusion body myositis Video swallow showed focal moderate to severe narrowing of the upper esophageal sphincter. This raises the possibility of a proximal esophageal stricture or mass. GI consulted for this and distal esophageal swelling. Case discussed with GI that recommended to discuss with rheumatology if increasing immunosuppression may be helpful. Patient follows with rheumatology in [place]. Daughter will contact rheumatology for an appointment On PP therapy in case of PUD-higher risk with ongoing steroid use. Consider UES myotomy per advanced GI for possible symptoms management case discussed with speech that recommended full liquid diet for now patient is not interested in any PEG tube placement- daughter agreed with her wishes Discussed about permissive aspiration. We will talk with speech therapy to advance the diet slowly since patient does not like the full liquid Continue aspiration precaution Coronary artery disease: STEMI with PCI's of RCA and left circumflex with drug-eluting stents July 2018. No anginal symptoms but did have inverted TWI in I AVL which was again seen on repeat EKG. Patient with known h/o ischemic cardiomyopathy. ECHO showed normal LV systolic function is normal with EF 55 to 60% Continue aspirin, metoprolol succinate, atorvastatin. Cardiomyopathy: History of ischemic cardiomyopathy. Euvolemic, compensated on exam. Diarrhea Stool for Cdiff negative Continue Loperamide prn Hypokalemia Potassium 3.4 K replaced Continue monitor BMP 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: chronic, stable. Cont synthroid per home regimen Anemia: Hgb stable DVT prophylaxis on heparin subq Code status DNR Disposition -waiting for placement to rehab. Hemoglobin today saying Admission and Anticipated Discharge Date Admission Date: January 16, 2022 Subjective Pt was seen and examined for follow up weakness and PNA Lying in bed with no distress with daughter at bedside Pt said that she feels fine GI spoke to her today about the dysphagia, pt reinforced it again in the presence of her daughter that she does not want any tube feeding provided update to her daughter and answered all of her questions Denies ny chest pain, palpitation, dizziness and SOB Review of Systems Review of Systems: All systems reviewed & are unremarkable except as noted in Subjective Physical Exam Physical Exam: General- No acute distress Head- atraumatic Eyes- PERRL, EOMI, ENT- oropharynx clear Neck- supple, no JVD Lungs- diminished BS Heart- regular rhythm; no murmur Abdomen- normal bowel sounds, soft, nontender Extremities- no calf tenderness Neuro- alert, oriented x 3; PERRL, EOMI; no facial palsy; no dysarthria Skin- warm & dry Results & Data Results & Data ([facility]) Vital Signs (Past 12 Hours) Vital Signs Temp Pulse Pulse Resp BP BP Pulse Ox 01/19/22 19:23 36.8 C 52 L 18 174/77 H 95 01/19/22 16:38 36.8 C 53 L 18 165/93 H 170/86 H 95 01/19/22 15:58 53 L 01/19/22 13:19 01/19/22 11:16 36.6 C 58 L 19 148/72 H 94 01/19/22 10:44 51 L O2 Del Method 01/19/22 19:23 Room Air 01/19/22 16:38 Room Air 01/19/22 15:58 01/19/22 13:19 Room Air 01/19/22 11:16 Room Air 01/19/22 10:44 (1) Pneumonia Laterality: bilateral Lung location: lower lobe of lung Pneumonia type: aspiration pneumonia
[2022-01-20] MEDS: PIPERACILLIN/TAZOBACTAM 3.375 GM in DEXTROSE 5% 100 ML IV SCH ×2 (01:23→11:03)
[2022-01-20] MEDS ORDERED: amLODIPine BESYLATE 5 MG TAB PO SCH ×2 (04:15→09:00)
[2022-01-20] MEDS: HEPARIN SOD 5,000 UNIT/0.5 ML VIAL SQ SCH ×3 (05:30→21:00)
[2022-01-20] MEDS: LEVOTHYROXINE SODIUM 88 MCG TABLET PO SCH (05:31)
[2022-01-20] MEDS ORDERED: POTASSIUM CHLORIDE PWD 20 MEQ PACK PO STA (05:45)
[2022-01-20] MEDS: METOPROLOL SUCC 25MG EXT REL TAB PO SCH (06:40)
[2022-01-20] MEDS: LOPERAMIDE HCL 2 MG CAP PO PRN ×2 (08:13→19:33)
[2022-01-20] MEDS: allopurinoL 100 MG TAB PO SCH (08:14)
[2022-01-20] MEDS: PANTOprazole 40 MG TAB PO SCH (08:14)
[2022-01-20] MEDS: ASPIRIN 81 MG ECTAB PO SCH (08:15)
[2022-01-20] MEDS: GABAPENTIN 600 MG TAB PO SCH ×3 (08:15→20:56)
[2022-01-20] MEDS: predniSONE 5 MG TAB PO SCH (08:15)
[2022-01-20 11:23] LABS: BUN Creatinine Ratio 23.7 (10-20); Calcium 9.2 mg/dl (8.5-10.1); Creatinine Clr Calc Pharmacy 60.8 ml/min; Est GFR (African American) 98.9 ml/min; Est GFR (Non-African American) 85.4 ml/min; Potassium 4.2 mmol/L (3.5-5.1)
--- NOTE | 2022-01-20 15:40 | Communication Note ---
Date of Service: January 20, [address] Harvey. Myotomy of upper esophageal sphincter isn't usually a therapeutic option and is not available within the [facility] system. Would go forward w speech path recommendation and permissive aspiration vs PEG if that is the pt's preference. GI will sign off. Please call if pt/family would like to have a PEG placed.
[2022-01-20] MEDS: AMPICILLIN/SULBACTAM SOD 3,000 MG in 0.9 % SODIUM CHLORIDE 100 ML IV SCH ×2 (18:39→23:13)
--- NOTE | 2022-01-20 20:26 | Hospitalist Progress Note ---
Date of Service January 20, 2022 Assessment & Plan (1) Pneumonia: (2) Sepsis: Plan: Presented on admission with weakness and productive cough Met sepsis criteria on admission with elevated WBC, tachycardia and elevate lactic acid CXR showed multifocal airspace consolidation is seen at the lung bases Video swallow showed poor pharyngeal constriction resulting in a large amount of residue throughout the hypopharynx with multiple episodes of aspiration seen throughout the examination. 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 This raises the possibility of a proximal esophageal stricture or mass. GI consulted for this and distal esophageal swelling. Case discussed with GI that recommended to discuss with rheumatology if increasing immunosuppression may be helpful. Patient follows with rheumatology in [place]. Daughter will contact rheumatology for an appointment On PP therapy in case of PUD-higher risk with ongoing steroid use. Consider UES myotomy per advanced GI for possible symptoms management case discussed with speech that recommended full liquid diet for now patient is not interested in any PEG tube placement- daughter agreed with her wishes Discussed about permissive aspiration. We will talk with speech therapy to advance the diet slowly since patient does not like the full liquid Continue aspiration precaution Coronary artery disease: STEMI with PCI's of RCA and left circumflex with drug-eluting stents July 2018. No anginal symptoms but did have inverted TWI in I AVL which was again seen on repeat EKG. Patient with known h/o ischemic cardiomyopathy. ECHO showed normal LV systolic function is normal with EF 55 to 60% Continue aspirin, metoprolol succinate, atorvastatin. Cardiomyopathy: History of ischemic cardiomyopathy. Euvolemic, compensated on exam. Diarrhea Stool for Cdiff negative Continue Loperamide prn Hypokalemia Potassium 4.2 K stable Continue monitor BMP 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: chronic, stable. Cont synthroid per home regimen Anemia: Hgb stable DVT prophylaxis on heparin subq Code status DNR Disposition -waiting for placement to rehab. Hemoglobin today saying Admission and Anticipated Discharge Date Admission Date: January 16, 2022 Subjective Pt was seen and examined for follow up weakness and PNA Sitting in chair with no acute distress Pt said that she feels fine She is asking about when she will go to rehab Denies ny chest pain, palpitation, dizziness and SOB Review of Systems Review of Systems: All systems reviewed & are unremarkable except as noted in Subjective Physical Exam Physical Exam: General- No acute distress Head- atraumatic Eyes- PERRL, EOMI, ENT- oropharynx clear Neck- supple, no JVD Lungs- diminished BS Heart- regular rhythm; no murmur Abdomen- normal bowel sounds, soft, nontender Extremities- no calf tenderness Neuro- alert, oriented x 3; PERRL, EOMI; no facial palsy; no dysarthria Skin- warm & dry Results & Data Results & Data ([facility]) Vital Signs (Past 12 Hours) Vital Signs Temp Pulse Pulse Resp BP BP Pulse Ox 01/20/22 17:37 58 L 01/20/22 15:55 36.3 C L 55 L 20 150/69 H 97 01/20/22 12:44 36.5 C 57 L 14 143/74 H 95 O2 Del Method 01/20/22 17:37 01/20/22 15:55 Room Air 01/20/22 12:44 Room Air (1) Pneumonia Laterality: bilateral Lung location: lower lobe of lung Pneumonia type: aspiration pneumonia
[2022-01-20] MEDS: DULoxetine HCL 60 MG CAP PO SCH (20:56)
[2022-01-20] MEDS: ATORVASTATIN 40 MG TAB PO SCH (20:57)
[2022-01-21] MEDS: LEVOTHYROXINE SODIUM 88 MCG TABLET PO SCH (05:47)
[2022-01-21] MEDS: amLODIPine BESYLATE 5 MG TAB PO SCH (05:47)
[2022-01-21] MEDS: HEPARIN SOD 5,000 UNIT/0.5 ML VIAL SQ SCH ×3 (05:47→22:01)
[2022-01-21] MEDS: AMPICILLIN/SULBACTAM SOD 3,000 MG in 0.9 % SODIUM CHLORIDE 100 ML IV SCH ×4 (05:48→23:14)
[2022-01-21] MEDS ORDERED: amLODIPine BESYLATE 5 MG TAB PO ONE (09:05)
[2022-01-21] MEDS: predniSONE 5 MG TAB PO SCH (09:28)
[2022-01-21] MEDS: METOPROLOL SUCC 25MG EXT REL TAB PO SCH (09:28)
[2022-01-21] MEDS: ASPIRIN 81 MG ECTAB PO SCH (09:28)
[2022-01-21] MEDS: PANTOprazole 40 MG TAB PO SCH (09:28)
[2022-01-21] MEDS: allopurinoL 100 MG TAB PO SCH (09:28)
[2022-01-21] MEDS: GABAPENTIN 600 MG TAB PO SCH ×3 (09:29→20:28)
[2022-01-21] MEDS: LOPERAMIDE HCL 2 MG CAP PO PRN (11:51)
--- NOTE | 2022-01-21 14:27 | Student Report ---
[employer] Med Student Progress Note Advanced Practice Practitioner Student Attestation: Not for use in clinical care. Date of Service Date of service: January 21, 2022 Subjective Subjective: No acute events overnight. Pt currently awaiting open bed at [facility]. Denies fever, chills, night sweats, pain. Denies CP, SOB, N/V/D. Denies productive cough. Reports bowel movement this morning that she states was normal for her. Denies issues with urination. Feels that her swallowing is better than prior to admission and states that she hasn't been coughing with food. Reports using her walker when getting OOB and ambulating. ROS ROS: See above for pertinent positives & negatives. A total of 10 systems reviewed a nd were otherwise negative. Physical Exam Physical Exam: General: Resting in bed, No acute distress, converses easily. HEENT: Sclera white, no corneal edema, PERRLA, neck supple. Atraumatic. Cardiovascular: S1, S2 RRR, no murmur, rub, gallop. Pulmonary: CTA, bilaterally, normal work of breathing. Abdomen: Soft, nontender, nondistended, +BS x4. Extremities: No peripheral edema, +2 pedal pulses bilaterally. Neurologic: A&O x4, WEBBER, left leg painful with hip flexion. Skin: Warm, pink, dry, no rash Results Results: Vital Signs Temp 36.4 C L Pulse 68 Resp 16 BP 146/85 H Pulse Ox 94 Intake & Output 01/21/22 01/21/22 06:59 18:59 Intake Total 474 / 589 108 / 108 Output Total 1 count 1 count Balance 474 / 588 108 / 108 Weight 57.7 kg Medication List Acetaminophen (Acetaminophen 500 Mg Tab) 500 mg PO QID PRN Stop: 02/16/22 01:11 EST Allopurinol (Allopurinol 100 Mg Tab) 100 mg PO [facility] Last Admin: 01/21/22 09:28 Dose: 100 mg Amlodipine Besylate (Amlodipine Besylate 5 Mg Tab) 5 mg PO [facility] Last Admin: 01/21/22 05:47 Dose: 5 mg Aspirin (Aspirin 81 Mg Ectab) 81 mg PO [facility] Last Admin: 01/21/22 09:28 Dose: 81 mg Atorvastatin Calcium (Atorvastatin 40 Mg Tab) 40 mg PO [facility] Last Admin: 01/20/22 20:57 Dose: 40 mg Duloxetine HCl (Duloxetine Hcl 60 Mg Cap) 60 mg PO HS [facility] Last Admin: 01/20/22 20:56 Dose: 60 mg Ferrous Sulfate (Ferrous Sulfate 325 Mg Tab) 325 mg PO QAM [facility] Last Admin: 01/17/22 08:03 Dose: 325 mg Gabapentin (Gabapentin 600 Mg Tab) 600 mg PO TID [facility] Last Admin: 01/21/22 13:59 Dose: 600 mg Guaifenesin (Guaifenesin 200 Mg Tab) 200 mg PO Q8H PRN Stop: 02/16/22 22:44 Heparin Sodium (Porcine) (Heparin Sod 5,000 Unit/0.5 Ml Vial) 5,000 units SQ Q8 [facility] Last Admin: 01/21/22 13:59 Dose: 5,000 units Ampicillin Sodium/Sulbactam Sodium 3,000 mg/ Sodium Chloride 108 mls @ 216 mls/hr IV Q6H [facility]; Protocol Last Infusion: 01/21/22 12:21 Dose: 0 mls/hr Levothyroxine Sodium (Levothyroxine Sodium 88 Mcg Tablet) 88 mcg PO [id number] [facility] Last Admin: 01/21/22 05:47 Dose: 88 mcg Loperamide HCl (Loperamide Hcl 2 Mg Cap) 2 mg PO UD PRN Stop: 02/18/22 19:46 Metoprolol Succinate (Metoprolol Succ 25mg Ext Rel Tab) 12.5 mg PO DAILY [facility] Last Admin: 01/21/22 09:28 Dose: 12.5 mg Pantoprazole Sodium (Pantoprazole 40 Mg Tab) 40 mg PO QAM [facility] Last Admin: 01/21/22 09:28 Dose: 40 mg Prednisone (Prednisone 5 Mg Tab) 15 mg PO DAILY [facility]; Taper Last Admin: 01/21/22 09:28 Dose: 15 mg A&P A&P: 1. Sepsis secondary to pneumonia: Originally on Zosyn (01/16-01/20), now on Unasyn and has received 4 doses (1 day), continue on Augmentin when discharged for 7 day course. 2. Esophageal narrowing/Dysphagia: Video study confirmed aspiration. Continue aspiration precautions. Per rheumatology, consider increasing immunosuppression medication treatment for CIPD/myositis to help with symptoms. GI recomendation for PEG placement, pt declines at this time. Esophageal myotomy not an option at this point. 3. Diarrhea/Hypokalemia: Both resolved. Continue to monitor labs. 4. CAD/ICMO: Continue ASA, atorvastatin, metoprolol. 01/19 echo shows EF 55-60%. Pt currently euvolemic. 5. HTN: Amlodipine started this admission for increasing HTN. 6. 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: Continue levothyroxine every morning. TSH from 01/16 was 0.842. 7. Anemia: Continue vitamin B-12 and ferrous sulfate. Last H&H 10.2 & 30.6. No outward signs of bleeding. 8. VTE prophylaxis: Continue heparin subQ. Disposition: Plan for discharge to [facility] tomorrow.
--- NOTE | 2022-01-21 14:56 | Hospitalist Progress Note ---
Date of Service January 21, 2022 Assessment & Plan (1) Pneumonia: (2) Sepsis: Plan: Presented on admission with weakness and productive cough Met sepsis criteria on admission with elevated WBC, tachycardia and elevate lactic acid. WBC and lactic acid normalized. Admitting CXR: Small patchy bibasilar densities may represent atelectasis or pneumonia Video swallow showed poor pharyngeal constriction resulting in a large amount of residue throughout the hypopharynx with multiple episodes of aspiration seen throughout the examination. Initially placed on IV Zosyn (01/16-01/20) and changed to IV Unasyn (01/20 - current). Continue to complete 7 day course. 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 This raises the possibility of a proximal esophageal stricture or mass. GI consulted GI recommends discussing with rheumatology if increasing immunosuppression therapy may be helpful. Patient follows with rheumatology in [place]. Daughter will contact rheumatology for an appointment. PEG tube considered however patient declined. Myotomy of esophagus also considered however per GI "Myotomy of upper esophageal sphincter isn't usually a therapeutic option and is not available within the [facility] system" Will continue with permissive aspiration, speech therapy following. Patient currently tolerating minced and moist diet. COVID 19 Pt was diagnosed on 12/02/21 and continued to test positive on admission. Pneumonia is secondary to aspiration and not COVID-19 reinfection. Does not meed any criteria for COVID-19 directed therapies. Discussed with infection control, isolation precautions removed today Fall Weakness Ambulatory dysfunction PT/OT recommending SNF Planning on discharge to [facility] tomorrow Coronary artery disease Ischemic Cardiomyopathy Hx STEMI with PCI's of RCA and left circumflex with drug-eluting stents July 2018 No anginal symptoms but did have inverted T-waves in I and AVL Patient with known h/o ischemic cardiomyopathy ECHO showed normal LV systolic function, EF 55 to 60%, no acute wall motion abnormality Appears euvolemic, not on routine diuretics HS trop on admission negative Continue aspirin, metoprolol succinate, atorvastatin Diarrhea Stool for Cdiff negative Continue Loperamide prn Hypokalemia Replaced, resolved 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 Continue levothyroxine Chronic anemia Hgb stable DVT prophylaxis SQ heparin Disposition -medically stable, likely discharge to [facility] tomorrow once bed available Admission and Anticipated Discharge Date Admission Date: January 16, 2022 Supervising Physician Co-Signing Physician Notes Pt was seen and examined. Agreed with Yancy CLARK exam, assessment and plan. Presented on admission with weakness and productive cough. CXR showed PNA. blood cx no growth. Currently on Unasyn, will need to complete a total 7 days course of abx. Clinically stable. MD Reina Subjective Follow-up for generalized weakness, pneumonia. Patient seen and examined. Patient is anxious to be discharged to rehab. No further issues with swallowing. Patient reports cough has significantly improved. Denies chest pain or shortness of breath. Reports a good appetite, denies abdominal pain and nausea. Review of Systems Review of Systems: ROS per HPI, all other systems reviewed and negative Physical Exam Constitutional: WD/WN, vitals as above Respiratory: normal respiratory effort; no respiratory distress Auscultation: + diminished lung sounds Cardiovascular: Rate/Rhythm: regular rate and regular rhythm Vessels: normal peripheral pulses Extremities: no edema Gastrointestinal (Abdomen): Percussion/Palpation: abdomen soft; abdomen nontender Skin: no rashes, warm and dry Neurologic: no focal motor deficits Psychiatric: A+Ox3, euthymic affect Results & Data Results & Data ([facility]) Vital Signs (Past 12 Hours) Vital Signs Temp Pulse Resp BP Pulse Ox O2 Del Method 01/21/22 09:20 68 146/85 H 01/21/22 07:41 36.4 C L 59 L 16 163/80 H 94 Room Air 01/21/22 04:45 196/92 H 01/21/22 04:38 36.5 C 57 L 16 96 Room Air (1) Pneumonia Laterality: bilateral Lung location: lower lobe of lung Pneumonia type: aspiration pneumonia
[2022-01-21] MEDS: ATORVASTATIN 40 MG TAB PO SCH (20:28)
[2022-01-21] MEDS: DULoxetine HCL 60 MG CAP PO SCH (20:28)
[2022-01-22] MEDS: HEPARIN SOD 5,000 UNIT/0.5 ML VIAL SQ SCH (05:35)
[2022-01-22] MEDS: AMPICILLIN/SULBACTAM SOD 3,000 MG in 0.9 % SODIUM CHLORIDE 100 ML IV SCH ×2 (05:35→12:16)
[2022-01-22] MEDS: LEVOTHYROXINE SODIUM 88 MCG TABLET PO SCH (05:35)
[2022-01-22] MEDS: GABAPENTIN 600 MG TAB PO SCH (08:25)
[2022-01-22] MEDS: ASPIRIN 81 MG ECTAB PO SCH (08:25)
[2022-01-22] MEDS: amLODIPine BESYLATE 5 MG TAB PO SCH (08:25)
[2022-01-22] MEDS: allopurinoL 100 MG TAB PO SCH (08:26)
[2022-01-22] MEDS: predniSONE 5 MG TAB PO SCH (08:26)
[2022-01-22] MEDS: PANTOprazole 40 MG TAB PO SCH (08:26)
[2022-01-22] MEDS: METOPROLOL SUCC 25MG EXT REL TAB PO SCH (08:27)
--- NOTE | 2022-01-22 11:37 | Discharge Summary ---
Date of Service January 22, 2022 Admission HPI Per Admitting Provider History obtained from patient and records. 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 Last confinement November 2018 for ARF secondary to diarrhea. 2 months ago, patient noted decreased appetite, taste loss, sore throat and congestion symptoms. Patient completed COVID-19 vaccination. Outpatient COVID-19 test last December 02, 2021 was positive. Joint aches and ambulatory dysfunction following illness which improved with prednisone Rx from PCP. 3 weeks ago, patient started by PCP on low-dose prednisone course for joint pain attributed to patient's autoimmune conditions after discussion with family. 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 Fatigue and transient headache symptoms. Nausea, vomiting, transient flank pain and diarrhea complaints. Junky cough symptoms post emesis. Patient denies chest pain, SOB. Patient felt so weak she could barely stand. IV Cefepime administered at the ER. 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 Admission Exam Per Admitting Provider GENERAL: Comfortable, pleasant, underweight, no respiratory distress SKIN: Normal color, warm HEENT: Bespectacled, [place] palpebral conjunctivae, no ptosis, dry buccal mucosa NECK : Supple, no tenderness CHEST : Decreased breath sounds, no tenderness HEART : RRR, no obvious murmurs ABDOMEN: no distention, nontender EXTREMITIES : No LE swelling/tenderness, no other conspicuous deformities noted NEUROLOGIC : Coherent, no facial asymmetry, gait and stance not assessed Principal Diagnosis Sepsis Aspiration Pneumonia Discharge Exam Constitutional WD/WN, vitals as above Respiratory normal respiratory effort, lungs clear to auscultation Cardiovascular Rate/Rhythm: regular rate and regular rhythm Vessels: normal peripheral pulses Extremities: no edema Gastrointestinal (Abdomen) Percussion/Palpation: abdomen soft; abdomen nontender Skin no rashes, warm and dry Neurologic no focal motor deficits Psychiatric A+Ox3, euthymic affect Discharge Data Allergies Allergy/AdvReac Type Severity Reaction Status Date / Time No Known Drug Allergies Allergy Verified 01/16/22 20:58 Consultations 01/18/22 00:07 Consult Gastroenterology Routine Ordered Studies Impressions Chest X-Ray 01/16/22 15:52 XR chest 1V portable HISTORY: weakness COMPARISON: Chest 12/02/2018. FINDINGS: No pneumothorax. No pleural effusions. The cardiac silhouette remains mildly enlarged. There is perihilar interstitial/vascular thickening suggestive of mild congestive change. This has slightly progressed in the interval. There are few small patchy bibasilar densities. There are calcifications within the aortic knob. IMPRESSION: 1. Cardiomegaly with mild central pulmonary vascular congestion without overt edema. 2. Small patchy bibasilar densities may represent atelectasis or pneumonia. ACT 112: Negative or not required by law. Electronically signed by: Jay Reynoso M.D. 01/16/2022 5:32 PM Abdomen/Pelvis CT 01/16/22 16:54 CT SCAN OF THE ABDOMEN AND PELVIS WITH IV CONTRAST CLINICAL HISTORY: Left flank pain. COMPARISON STUDY: Abdominal CT dated 10/17/2018. TECHNIQUE: Following the IV administration of 92 cc of Optiray 350, CT scan of the abdomen and pelvis is performed from the lung bases to the proximal femora. Images are reviewed in the axial, sagittal, and coronal planes. IV contrast was administered without complication. A dose lowering technique was utilized adhering to the principles of ALARA. The examination is degraded by motion artifact. There is also streak artifact from the left arm which could not be elevated above the abdomen. CT DOSE: 320.83 mGy.cm FINDINGS: Lung bases: The heart is mildly enlarged and without pericardial effusion. The coronary arteries and evidence of calcified. Multifocal airspace consolidation is seen at both lung bases. No pleural effusion is identified. There is a moderate hiatal hernia. The distal esophagus appears circumferentially thick walled. Liver: The contrast-enhanced liver is normal in size, contour, and attenuation. There is no intrahepatic biliary ductal dilatation. The hepatic veins and portal veins are patent. Gallbladder: There are calcified gallstones without CT evidence of acute cholecystitis. Spleen: Normal in size and attenuation. Pancreas: Atrophic and grossly unremarkable. Adrenal glands: Unremarkable. Kidneys: The contrast enhanced kidneys demonstrated cortical atrophy and are without hydronephrosis. The kidneys enhance symmetrically. A 1.6 cm indetermin ate cortical hypodensity in the right lower pole is unchanged. Abdominal vasculature: The abdominal aorta is normal in course and caliber noting moderate to advanced atherosclerotic calcification. Bowel: There is moderate colonic diverticulosis without CT evidence of acute diverticulitis. Mild fecal retention is seen throughout the colon. There is no bowel obstruction. The appendix is well-visualized and normal. The proximal duodenum is thickened and edematous, with mild surrounding infiltration. This is best seen on axial image #207. Peritoneum: There is no intraperitoneal free air or abdominal ascites. There is a fat-containing umbilical hernia. Lymphadenopathy: None. Pelvic viscera: The bladder is normal as visualized. The uterus is surgically absent. No adnexal lesion is seen. Skeletal structures: The skeletal structures are osteopenic. There is mild lumbosacral spondylosis. No lytic or blastic lesions are seen. IMPRESSION: 1. The proximal duodenum is thickened and edematous with mild surrounding inflammation. This suggests a nonspecific duodenitis or possibly ulcer disease. Clinical correlation will be required. If clinically warranted this could be further assessed with endoscopy. 2. There is a moderate hiatal hernia with circumferential wall thickening of the distal esophagus. Correlate clinically for evidence of esophagitis. This could also be assessed with endoscopy. 3. Multifocal airspace consolidation is seen at the lung bases and is typical for pneumonia/aspiration pneumonitis. Radiographic follow-up to resolution is recommended. 4. Cardiomegaly. 5. Cholelithiasis. 6. Colonic diverticulosis without CT evidence of acute diverticulitis. 7. Additional findings as above. ACT 112: Negative or not required by law. Electronically signed by: Jeremias Fairbanks M.D. 01/16/2022 6:49 PM Videofluoroscopic Swallow 01/17/22 14:30 FL video swallow HISTORY: assess for aspiration TECHNIQUE: Video fluoroscopic evaluation of swallowing was performed in the AP and lateral projections by the speech pathology staff. The patient is fed nectar-thick and thin liquid barium, a barium coated wafer, and barium pudding. FLUOROSCOPY TIME: 4.2 minutes. A cine loop submitted. COMPARISON STUDY: None. FINDINGS: Overall, poor pharyngeal constriction with decreased hyoid excursion and epiglottic deflection. This results in a large amount of residue throughout the hypopharynx with multiple episodes of aspiration seen throughout the examination. There is also focal moderate to severe narrowing at the upper esophageal sphincter. This raises the possibility of a proximal esophageal stricture or mass. IMPRESSION: 1. 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 This raises the possibility of a proximal esophageal stricture or mass. Endoscopy recommended for further evaluation. 2. Poor pharyngeal constriction resulting in a large amount of residue throughout the hypopharynx with multiple episodes of aspiration seen throughout the examination. 3. Please see the speech pathologist report for detailed findings and recommendations. ACT 112: Negative or not required by law. Electronically signed by: Jay Reynoso M.D. 01/17/2022 3:26 PM Hospital Course (1) Aspiration pneumonia: (2) Sepsis: Presented on admission with weakness and productive cough Met sepsis criteria on admission with elevated WBC, tachycardia and elevate lactic acid. WBC and lactic acid normalized. Admitting CXR: Small patchy bibasilar densities may represent atelectasis or pneumonia Video swallow showed poor pharyngeal constriction resulting in a large amount of residue throughout the hypopharynx with multiple episodes of aspiration seen throughout the examination. Initially placed on IV Zosyn (01/16-01/20) and changed to IV Unasyn (01/20 - 01/22). Continue PO Augmentin to complete 7 day course. 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 This raises the possibility of a proximal esophageal stricture or mass. GI consulted GI recommends discussing with rheumatology if increasing immunosuppression therapy may be helpful. Patient follows with rheumatology in [place]. Daughter will contact rheumatology for an appointment. PEG tube considered however patient declined. Myotomy of esophagus also considered however per GI "Myotomy of upper esophageal sphincter isn't usually a therapeutic option and is not available within the [employer] system" Will continue with permissive aspiration, speech therapy following. Patient currently tolerating minced and moist diet. COVID 19 Pt was diagnosed on 12/02/21 and continued to test positive on admission. Pneumonia is secondary to aspiration and not COVID-19 reinfection. Does not meed any criteria for COVID-19 directed therapies. Discussed with infection control, isolation precautions removed 01/21 HTN Had persistently elevated BP during admission and amlodipine 5 mg daily was added with improvement IBM/CIPD Follows with rheumatology in [place]. Prior to admission, patient's PCP started her on a prolonged prednisone taper for ambulatory dysfunction/joint pain due to IBM/CIPD. Continue prednisone taper. Fall Weakness Ambulatory dysfunction PT/OT recommending SNF Coronary artery disease Ischemic Cardiomyopathy Hx STEMI with PCI's of RCA and left circumflex with drug-eluting stents July 2018 No anginal symptoms but did have inverted T-waves in I and AVL Patient with known h/o ischemic cardiomyopathy ECHO showed normal LV systolic function, EF 55 to 60%, no acute wall motion abnormality Appears euvolemic, not on routine diuretics HS trop on admission negative Continue aspirin, metoprolol succinate, atorvastatin Diarrhea Stool for Cdiff negative Diarrhea resolved Hypokalemia Replaced, resolved 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 Continue levothyroxine Chronic anemia Hgb stable Total Time Total Time Spent Total Time Spent (In Minutes): 40 Discharge Plan Discharge Items Patient Disposition: Transfer Half-Way Fac Reason For Visit: Weakness, Cough Discharge Diagnosis: Sepsis, aspiration pneumonia, dysphagia Condition on Discharge: Good Activity: As commented below Activity Comment: As per PT/OT recommendations Non-emergency contact: Primary Care Provider Call non-emergency contact if: you have any medication questions, your symptoms worsen, your pain is not controlled and you have a fever Follow-up/Referrals: Elizabeth Vanegas DO [Primary Care Provider] - Diet: Heart Healthy Diet Texture: Easy to Chew Diet Comment: Minced and moist diet Addtl Attending Provider Instructions: Patient presented to the hospital for evaluation of generalized weakness and cough. Was found to have pneumonia, likely aspiration. Patient will be discharged on A ugmentin for 3 additional doses to complete a 7-day antibiotic course. Patient was evaluated by speech therapy and is currently tolerating a minced and moist diet. Patient was started on amlodipine 5 mg daily for elevated BP during admission. Prior to admission, patient was started on a prolonged prednisone taper b PCP for treatment of joint pain and ambulatory dysfunction due to inclusion body myositis/CIDP. Taper as follows: Prednisone 15 mg daily until 01/25, then prednisone 10 mg daily x 1 month, then 5 mg daily Patient tested positive for COVID-19 on admission, 01/16/22. Patient also was positive on 12/02/21 as an outpatient. Pneumonia was felt to be due to aspiration and COVID-19 reinfection was felt to be unlikely. Isolation precautions removed on 01/21/22 per infection control. Pending Studies at Discharge: No Stand-Alone Forms: Count Includes [facility] Skilled Items Patient informed of condition?: Yes DNR: Yes Discharge Level of Care: Skilled Communicable Disease: No Discharge Prognosis: Stable Lines: None Urinary Catheter: No Medications and DC Order Prescriptions: New amoxicillin-pot clavulanate 875-125 mg tablet 1 tab PO BID Qty: 3 0RF amlodipine [Norvasc] 5 mg Tablet 5 mg PO QAM Qty: 1 0RF Continued atorvastatin 40 mg tablet 40 mg PO HS Qty: 90 3RF gabapentin [Neurontin] 600 mg tablet 600 mg PO TID allopurinol 100 mg Tablet 100 mg PO QAM cyanocobalamin (vitamin B-12) 1,000 mcg/mL Solution 1,000 mcg IM MONTHLY Label Comments: about 2 weeks ago duloxetine [Cymbalta] 30 mg capsule,delayed release(DR/EC) 60 mg PO HS cholecalciferol (vitamin D3) [Vitamin D3] 1,000 unit Tablet 2,000 unit PO DAILY Ivig 1 dose IV MONTHLY Rx Instructions: TAKE Thursday OF THE MONTH aspirin [Ecotrin Low Strength] 81 mg tablet,delayed release (DR/EC) 81 mg PO QAM acetaminophen [Tylenol Extra Strength] 500 mg tablet 500 mg PO QID PRN (Reason: Pain) nitroglycerin [Nitrostat] 0.4 mg tablet, sublingual 0.4 mg sublingual UD PRN (Reason: Chest Pain) Rx Instructions: NEEDED FOR CHEST PAIN : ONE TABLET UNDER THE TONGUE EVERY FIVE MINUTES, UP TO 3 DOSES. pantoprazole 20 mg tablet,delayed release (DR/EC) 20 mg PO QAM prednisone 5 mg tablet 5 mg PO .DAILY/UD Rx Instructions: BEGIN 12/26/21 : TAKE 15MG DAILY X 1 MONTH, THEN 10MG DAILY X 1 MONTH, THEN 5MG DAILY THEREAFTER. metoprolol succinate 25 mg tablet extended release 24 hr 12.5 mg PO DAILY Rx Instructions: 1/2 TABLET DAILY turmeric root extract 500 mg Capsule 500 mg PO QAM ferrous sulfate 325 mg (65 mg iron) tablet 325 mg PO QAM fluorouracil 5 % cream 1 applic TOPICAL BID Rx Instructions: APPLY TO NOSE diclofenac sodium 1 % gel 1 ea TOPICAL UD Changed levothyroxine 88 mcg tablet 88 mcg PO MOTUWETHFRSA Qty: 1 0RF Rx Instructions: IN THE AM BEFORE BREAKFAST, SIX DAYS PER WEEK. Admission Data Admit Date/Time: 01/16/22 21:44 Attending Provider: Orlando Huang Admit Provider: Luis Enrique Capps Primary Care Provider: Elizabeth Vanegas Other Providers: Nannette Agustin ; Luis Enrique Capps ; Tyrone Nj
== END 2022-01-22 13:24 | DRG 871 ==
LOC: ED 15:35 → 2N 21:44 → SUATTDRO 21:44 → 2N 01-17 00:35 → 3E 01-21 04:31

== ENCOUNTER 2023-04-28 10:29 | Inpatient (IN) ==
[2023-04-28 11:44] LABS: Adenovirus PCR Not Detected (NotDetected); Bordetella parapertussis PCR Not Detected (NotDetected); Bordetella pertussis PCR Not Detected (NotDetected); Chlamydia pneumoniae PCR Not Detected (NotDetected); Coronavirus 229E PCR Not Detected (NotDetected); Coronavirus CoV-2 (COVID19)PCR Not Detected (NotDetected); Coronavirus HKU1 PCR Not Detected (NotDetected); Coronavirus NL63 PCR Not Detected (NotDetected); Coronavirus OC43PCR Not Detected (NotDetected); Human Metapneumovirus PCR Not Detected (NotDetected); Influenza A PCR Not Detected (NotDetected); Influenza B PCR Not Detected (NotDetected); Mycoplasma pneumoniae PCR Not Detected (NotDetected); Parainfluenza Virus 1 PCR Not Detected (NotDetected); Parainfluenza Virus 2 PCR Not Detected (NotDetected); Parainfluenza Virus 3 PCR Not Detected (NotDetected); Parainfluenza Virus 4 PCR Not Detected (NotDetected); Respiratory Syncytial VirusPCR Not Detected (NotDetected); Rhinovirus/Enterovirus PCR Not Detected (NotDetected)
--- NOTE | 2023-04-28 11:45 | XRay Report ---
XR chest 1V portable CLINICAL HISTORY: flu like symptoms TECHNIQUE: Single frontal radiograph of the chest was obtained. Comparison: Comparison is made to chest radiograph 01/17/2012 FINDINGS: No lines and tubes are seen. Calcified aortic knob is seen. The lungs are clear. No evidence of pleur al effusion or pneumothorax. IMPRESSION: No acute chest disease. ACT 112: Negative or not required by law. Electronically signed by: Jose Singh M.D. 04/28/2023 11:44 AM
--- NOTE | 2023-04-28 11:53 | Emergency Department Note ---
Impression & Plan Acute appendicitis ED Provider Note NAME: SCHUYLER AU AGE: 82 SEX: F : 1940 ARRIVES VIA: Ambulance INFORMANT: Patient, ED PROVIDER(S): Steven Tavarez MD CHIEF COMPLAINT: Weakness HPI: This is an 82-year-old female presenting for headache, body aches and diarrhea. Patient notes that she has had cough and congestion for the past few days. She notes that the weakness and bodyaches as well as abdominal cramps are new today. She has profuse diarrhea at home. No actual vomiting aside from small spit up. She is nauseous. She has had no fevers at home that she is aware of. She feels generally unwell. No chest pain or shortness of breath. No recent antibiotics ROS: See above HPI for pertinent positives & negatives. A total of 10 systems reviewed and were otherwise negative. PAST MEDICAL HISTORY: See Below PAST SURGICAL HISTORY: See Below FAMILY HISTORY: See Below SOCIAL HISTORY: See Below HOME MEDICATIONS: See Below ALLERGIES: See Below VITALS: See Below PHYSICAL EXAMINATION: General: resting comfortably in no acute distress Head: Normocephalic and atraumatic Eyes: Normal inspection, extraocular muscles intact Ear, nose, throat: Normal external exam Neck: Normal range of motion Respiratory: lungs clear to auscultation bilaterally Cardiovascular: Regular rate/rhythm, no murmur GI: Soft, diffuse abdominal tenderness, mild guarding Extremities: nontender, moves all extremities Neuro: The patient awake and alert, appropriately conversive, no focal deficits, symmetric faces Skin: Warm, dry, and intact MEDICAL DECISION MAKING: This is an 82-year-old female presenting for headache, bodyaches and diarrhea. Will check viral swab, basic lab work and urinalysis to help elucidate viral syndrome type symptoms -With patient's negative viral panel here and if he cannot abdominal pain, tenderness and diarrhea, will proceed to CT of the abdomen/pelvis -Leukocytosis is noted with slight anion gap of 14 and CO2 of 19 -Trace leuk esterase and WBC count noted with 4+ bacteria, patient complains of no UTI symptoms at this time -CT Abdo/pelvis reveals an appendicitis with foci of air as well as a metallic foreign body in the cecum -Also is enlarged gallbladder, patient continues to have no right upper quadrant pain or Lynn sign -Given broad-spectrum coverage with Zosyn for UTI, appendicitis -Discussed with Dr. Witt, general surgery, will take the patient to the OR and recommends admission to medicine after OR -[facility] Differential diagnosis: SBO, viral syndrome, appendicitis, cholecystitis, C. difficile ER treatment provided: See below Diagnostics interpreted by me: ECG: None Cardiac Monitoring: An order was placed for continuous cardiac monitoring. The monitor shows a rate of 100 with sinus rhythm. Laboratory studies: As stated above and show below. Imaging studies: See below. Past Med/Surg History Medical History Encounter for pre-operative examination History of [place] (myocardial infarction) Coronary artery disease CHF (congestive heart failure) Severe sepsis Inflammatory arthritis Gout Inclusion body myositis 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 HLD (hyperlipidemia) Neuropathy Surgical History S/P cardiac cath History of hysterectomy Family History Other Coronary heart disease Social History Smoking Status: Never smoker Second Hand Exposure: No; Do You Dip or Chew Tobacco: No; Hx Alcohol Use: No Hx Substance Use: No Preferred Language: Luxembourger Communication Ability: Effective Cleaner Signs Required: No Beliefs That Will Affect Care: None Current Living Situation: Alone Feels Safe at Home: Yes Assistive Devices: Cane, Stair Lift, Walker and Wheelchair Allergies Allergies Allergy/AdvReac Type Severity Reaction Status Date / Time No Known Drug Allergies Allergy Verified 04/28/23 14:44 Home Meds Home Medications Medication Instructions Recorded Confirmed allopurinol 100 mg tablet 100 mg PO QAM 08/03/18 04/28/23 cholecalciferol (vitamin D3) 25 2,000 unit PO DAILY 08/03/18 04/28/23 mcg (1,000 unit) tablet (Vitamin D3) cyanocobalamin (vitamin B-12) 1,000 mcg IM MONTHLY 08/03/18 04/28/23 1,000 mcg/mL injection solution duloxetine 30 mg capsule,delayed 30 mg PO HS 08/03/18 04/28/23 release (Cymbalta) gabapentin 600 mg tablet 600 mg PO TID 08/03/18 04/28/23 (Neurontin) acetaminophen 500 mg tablet 500 mg PO QID PRN Pain 10/11/18 04/28/23 (Tylenol Extra Strength) aspirin 81 mg tablet,delayed 81 mg PO QAM 10/11/18 04/28/23 release (Ecotrin Low Strength) diclofenac sodium 1 % topical gel 1 ea topical UD 01/16/22 04/28/23 ferrous sulfate 325 mg (65 mg 325 mg PO QAM 01/16/22 04/28/23 iron) tablet metoprolol succinate 25 mg 25 mg PO DAILY 01/16/22 04/28/23 tablet,extended release 24 hr pantoprazole 20 mg tablet,delayed 20 mg PO QAM 01/16/22 04/28/23 release prednisone 5 mg tablet 5 mg PO DAILY 01/16/22 04/28/23 turmeric root extract 500 mg 500 mg PO QAM 01/16/22 04/28/23 capsule levothyroxine 88 mcg tablet 88 mcg PO [id number] 04/28/23 04/28/23 Previous Rx's Medication Instructions Recorded atorvastatin 40 mg tablet 40 mg PO HS #90 tabs 06/06/19 amlodipine 5 mg tablet (Norvasc) 5 mg PO QAM #1 tab 01/22/22 Results & Data (ED) Vital Signs Vital Signs - 24 hr 04/28/23 10:38 04/28/23 11:34 04/28/23 14:26 Temperature 36.8 C Temperature Source Oral Pulse Rate 92 H Pulse Rate [Apical] Respiratory Rate 14 Respiratory Effort / Characteristics Non-Labored Spontaneous Respiratory Depth Normal Respiratory Pattern Blood Pressure 158/99 H Blood Pressure [Right Arm] 129/95 135/70 Blood Pressure Mean 118 Blood Pressure Mean [Right Arm] 106 91 Blood Pressure Position [Right Arm] Pulse Oximetry 93 Oxygen Delivery Method Room Air Sepsis Recent Fever Within 48 Hours No Sepsis New/Unexplained Change in Mental Status No Sepsis Action Taken by Nursing No Action Required 04/28/23 15:45 Temperature 37.1 C Temperature Source Oral Pulse Rate Pulse Rate [Apical] 100 H Respiratory Rate 22 Respiratory Effort / Characteristics Non-Labored Spontaneous Respiratory Depth Normal Respiratory Pattern Regular Blood Pressure Blood Pressure [Right Arm] 161/91 H Blood Pressure Mean Blood Pressure Mean [Right Arm] 114 Blood Pressure Position [Right Arm] Semi-fowlers Pulse Oximetry 97 Oxygen Delivery Method Room Air Sepsis Recent Fever Within 48 Hours Sepsis New/Unexplained Change in Mental Status Sepsis Action Taken by Nursing Laboratory Data 04/28/23 12:40 04/28/23 12:40 Lab Results 04/28/23 04/28/23 04/28/23 Range/Units 10:30 12:26 12:40 WBC 14.06 H (4.8-10.8) K/ul RBC 4.49 (4.20-5.40) M/uL Hgb 14.6 (12.0-16.0) g/dl Hct 43.8 (37.0-47.0) % MCV 97.6 (80.0-100.0) fL MCH 32.5 (25.0-34.0) pg MCHC 33.3 (32.0-36.0) g/dL RDW Std Deviation 52.1 H (36.4-46.3) fL RDW Coeff of Danya 14.5 (11.5-14.5) % Plt Count 295 (130-400) K/uL MPV 10.6 (9.4-12.4) fL Immature Gran % (Auto) 0.5 % Neut % (Auto) 85.5 % Lymph % (Auto) 8.4 % [place] % (Auto) 4.6 % Eos % (Auto) 0.7 % Baso % (Auto) 0.3 % Neut # (Auto) 12.03 H (1.40-6.50) K/uL Lymph # (Auto) 1.18 L (1.20-3.40) K/uL [place] # (Auto) 0.64 H (0.11-0.59) K/uL Eos # (Auto) 0.10 (0.00-0.50) K/uL Baso # (Auto) 0.04 (0.00-0.20) K/uL Immature Gran # (Auto) 0.07 (0.01-0.20) K/uL Sodium 137 (136-145) mmol/L Potassium 3.6 (3.5-5.1) mmol/L Chloride 104 (98-107) mmol/L Carbon Dioxide 19 L (21-32) mmol/L Anion Gap 14 H (3-11) BUN 23 (6-23) mg/dl Creatinine 0.66 (0.6-1.2) mg/dl Est Cr Clr Drug Dosing 55.8 ml/min Est GFR ( Amer) 94.7 ml/min Est GFR (Non-Af Amer) 81.7 ml/min BUN/Creatinine Ratio 34.8 H (10-20) Glucose 122 H (70-99(Fasting)) mg/dl Lactate (0.4-2.0) mmol/L Calcium 9.4 (8.6-10.3) mg/dl Total Bilirubin 0.6 (0.2-1.0) mg/dl AST 21 (13-39) U/L ALT 13 (7-52) U/L Alkaline Phosphatase 78 (34-104) U/L Total Protein 7.7 (6.0-8.3) gm/dl Albumin 4.0 (3.4-5.0) gm/dl Globulin 3.7 (2.5-4.0) gm/dl Albumin/Globulin Ratio 1.1 (0.9-2) Urine Color Dark Yellow Urine Appearance Clear (Clear) Urine pH 5.0 (4.5-7.5) Ur Specific [place] 1.022 (1.000-1.030) Urine Protein 1+ H (Negative) Urine Glucose (UA) Negative (Negative) Urine Ketones Trace H (Negative) Urine Blood Negative (Negative) Urine Nitrite Negative (Negative) Urine Bilirubin Negative (Negative) Urine Urobilinogen Negative (Negative) Ur Leukocyte Esterase Trace H (Negative) Urine WBC (Auto) 5-10 H (0-5) /hpf Urine RBC (Auto) 0-4 (0-4) /hpf U Hyaline Cast (Auto) 1-5 (0-5) /lpf U Epithel Cells (Auto) 0-5 (0-5) /lpf Urine Bacteria (Auto) 4+ H (Negative) Adenovirus (PCR) Not Detected (NotDetected) B. pertussis DNA (PCR) Not Detected (NotDetected) B.parapertussis DNA PCR Not Detected (NotDetected) C. pneumoniae DNA (PCR) Not Detected (NotDetected) Coronavirus OC43 (PCR) Not Detected (NotDetected) Coronavirus HKU1 (PCR) Not Detected (NotDetected) Coronavirus 229E (PCR) Not Detected (NotDetected) SARS-CoV-2 (PCR) Not Detected (NotDetected) Coronavirus NL63 (PCR) Not Detected (NotDetected) Human Metapneumovir PCR Not Detected (NotDetected) Influenza Type A (PCR) Not Detected (NotDetected) Influenza Type B (PCR) Not Detected (NotDetected) M. pneumoniae (PCR) Not Detected (NotDetected) Parainfluenza 1 (PCR) Not Detected (NotDetected) Parainfluenza 2 (PCR) Not Detected (NotDetected) Parainfluenza 3 (PCR) Not Detected (NotDetected) Parainfluenza 4 (PCR) Not Detected (NotDetected) RSV (PCR) Not Detected (NotDetected) Entero/Rhino (PCR) Not Detected (NotDetected) 04/28/23 Range/Units 13:28 WBC (4.8-10.8) K/ul RBC (4.20-5.40) M/uL Hgb (12.0-16.0) g/dl Hct (37.0-47.0) % MCV (80.0-100.0) fL MCH (25.0-34.0) pg MCHC (32.0-36.0) g/dL RDW Std Deviation (36.4-46.3) fL RDW Coeff of Danya (11.5-14.5) % Plt Count (130-400) K/uL MPV (9.4-12.4) fL Immature Gran % (Auto) % Neut % (Auto) % Lymph % (Auto) % [place] % (Auto) % Eos % (Auto) % Baso % (Auto) % Neut # (Auto) (1.40-6.50) K/uL Lymph # (Auto) (1.20-3.40) K/uL [place] # (Auto) (0.11-0.59) K/uL Eos # (Auto) (0.00-0.50) K/uL Baso # (Auto) (0.00-0.20) K/uL Immature Gran # (Auto) (0.01-0.20) K/uL Sodium (136-145) mmol/L Potassium (3.5-5.1) mmol/L Chloride (98-107) mmol/L Carbon Dioxide (21-32) mmol/L Anion Gap (3-11) BUN (6-23) mg/dl Creatinine (0.6-1.2) mg/dl Est Cr Clr Drug Dosing ml/min Est GFR ( Amer) ml/min Est GFR (Non-Af Amer) ml/min BUN/Creatinine Ratio (10-20) Glucose (70-99(Fasting)) mg/dl Lactate 1.7 (0.4-2.0) mmol/L Calcium (8.6-10.3) mg/dl Total Bilirubin (0.2-1.0) mg/dl AST (13-39) U/L ALT (7-52) U/L Alkaline Phosphatase (34-104) U/L Total Protein (6.0-8.3) gm/dl Albumin (3.4-5.0) gm/dl Globulin (2.5-4.0) gm/dl Albumin/Globulin Ratio (0.9-2) Urine Color Urine Appearance (Clear) Urine pH (4.5-7.5) Ur Specific [place] (1.000-1.030) Urine Protein (Negative) Urine Glucose (UA) (Negative) Urine Ketones (Negative) Urine Blood (Negative) Urine Nitrite (Negative) Urine Bilirubin (Negative) Urine Urobilinogen (Negative) Ur Leukocyte Esterase (Negative) Urine WBC (Auto) (0-5) /hpf Urine RBC (Auto) (0-4) /hpf U Hyaline Cast (Auto) (0-5) /lpf U Epithel Cells (Auto) (0-5) /lpf Urine Bacteria (Auto) (Negative) Adenovirus (PCR) (NotDetected) B. pertussis DNA (PCR) (NotDetected) B.parapertussis DNA PCR (NotDetected) C. pneumoniae DNA (PCR) (NotDetected) Coronavirus OC43 (PCR) (NotDetected) Coronavirus HKU1 (PCR) (NotDetected) Coronavirus 229E (PCR) (NotDetected) SARS-CoV-2 (PCR) (NotDetected) Coronavirus NL63 (PCR) (NotDetected) Human Metapneumovir PCR (NotDetected) Influenza Type A (PCR) (NotDetected) Influenza Type B (PCR) (NotDetected) M. pneumoniae (PCR) (NotDetected) Parainfluenza 1 (PCR) (NotDetected) Parainfluenza 2 (PCR) (NotDetected) Parainfluenza 3 (PCR) (NotDetected) Parainfluenza 4 (PCR) (NotDetected) RSV (PCR) (NotDetected) Entero/Rhino (PCR) (NotDetected) Administered Medications Discontinued Medications Bupivacaine HCl/Epinephrine Bitart (Bupivacaine/Epinephrine 0.5% Mpf 1:200,000 30 Ml Vial) Confirm Administered Dose 30 ml .ROUTE .STK-MED ONE Stop: 04/28/23 15:28 Last Admin: 04/28/23 16:38 Dose: 30 ml Documented By: JOSSIE Piperacillin Sod/Tazobactam Sod (Zosyn) 4.5 gm in 100 mls @ 200 mls/hr IV NOW ONE Stop: 04/28/23 15:22 Last Admin: 04/28/23 15:23 Dose: 200 mls/hr Documented By: HARRISON Ioversol (Optiray 320 500ml) 94 ml IV ONCE ONE Stop: 04/28/23 14:19 Last Admin: 04/28/23 14:18 Dose: 94 ml Documented By: SHELLI Imaging Data Radiologist's Impression: Chest X-Ray 04/28/23 10:43 XR chest 1V portable CLINICAL HISTORY: flu like symptoms TECHNIQUE: Single frontal radiograph of the chest was obtained. Comparison: Comparison is made to chest radiograph 01/17/2012 FINDINGS: No lines and tubes are seen. Calcified aortic knob is seen. The lungs are clear. No evidence of pleural effusion or pneumothorax. IMPRESSION: No acute chest disease. ACT 112: Negative or not required by law. Electronically signed by: Jose Singh M.D. 04/28/2023 11:44 AM Abdomen/Pelvis CT 04/28/23 11:[address] WITH IV CONTRAST CT DOSE: 1010.83 mGy.cm HISTORY: Acute generalized abdominal pain with diarrhea abd pain + gaurding, diffuse, diarrhea TECHNIQUE: Multiaxial CT images of the abdomen and pelvis were performed following the IV administration of 94 cc of Optiray, A dose lowering technique was utilized adhering to the principles of ALARA. COMPARISON STUDY: 01/16/2022 FINDINGS: Mild cardiomegaly. Extensive coronary artery calcifications. Mild linear subsegmental bibasilar atelectasis with right hemidiaphragmatic elevation. No free air. Unremarkable spleen, atrophic pancreas and adrenal glands. Stented gallbladder with layering cholelithiasis in the gallbladder fundus. Mild fundal gallbladder wall thickening. Trace edema/fluid adjacent to the gallbladder fundus. Unremarkable liver. Patent portal vein. 1.9 cm cyst of the inferior pole right kidney. 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 Symmetric enhancement kidneys. No hydronephrosis. Decompressed urinary bladder with mild wall thickening. Hysterectomy. Atherosclerosis of the aorta without aneurysm. No lymphadenopathy. Atrophy of the proximal thigh musculature. Moderate sized hiatal hernia with distal esophageal wall thickening. Left upper quadrant splenule again noted. Colonic diverticulosis. Trace pelvic ascites. There is a 6 mm metallic density focus within the cecum near the base of the appendix on image 257. The appendix is air and fluid filled, dilated and inflamed measuring up to 1.2 cm transversely with adjacent periappendiceal inflammation. No drainable fluid collections. There is a 6 mm mid appendiceal appendicolith. Circumferential wall thickening with mucosal hyperemia involves loops of distal ileum. Fluid-filled cecum and distal small bowel loops without high-grade obstruction. No acute fracture. Degenerative changes of the spine, pelvis and hips. IMPRESSION: 1. Acute appendicitis with subcentimeter appendicolith. Foci of air within the mid appendiceal lumen may be secondary to intraluminal necrosis. No drainable fluid collection or pneumoperitoneum. 2. Indeterminate subcentimeter metallic density focus within the cecum near the base of the appendix. 3. Fluid-filled cecum and loops of ileum with mucosal hyperemia of the terminal ileum, likely reactive. 4. Cholelithiasis with gallbladder distention and mild fundal gallbladder wall thickening, also likely reactive. Findings could be correlated with ultrasound if further clinical concern. 5. Moderate-sized hiatal hernia. 6. Additional findings as above. ACT 112: Negative or not required by law. The above report was generated using voice recognition software. It may contain grammatical, syntax or spelling errors. Electronically signed by: Carlos Shine M.D. 04/28/2023 2:39 PM Discharge Plan Visit Data Chief Complaint: Flu Like Symptoms Stated Complaint: flu ED Provider: Steven Tavarez Discharge Problem: Acute appendicitis Patient Disposition: Admitted As Inpatient Discharge Instructions Interventions: ED Discharge Assessment Last Done: 04/28/23 15:54 Forms Stand Alone Forms: [facility] Prescriptions Prescriptions: No Action atorvastatin 40 mg tablet 40 mg PO HS Qty: 90 3RF gabapentin [Neurontin] 600 mg tablet 600 mg PO TID allopurinol 100 mg Tablet 100 mg PO QAM cyanocobalamin (vitamin B-12) 1,000 mcg/mL Solution 1,000 mcg IM MONTHLY Patient Comments: about 2 weeks ago duloxetine [Cymbalta] 30 mg capsule,delayed release(DR/EC) 30 mg PO HS cholecalciferol (vitamin D3) [Vitamin D3] 1,000 unit Tablet 2,000 unit PO DAILY aspirin [Ecotrin Low Strength] 81 mg tablet,delayed release (DR/EC) 81 mg PO QAM acetaminophen [Tylenol Extra Strength] 500 mg tablet 500 mg PO QID PRN (Reason: Pain) pantoprazole 20 mg tablet,delayed release (DR/EC) 20 mg PO QAM prednisone 5 mg tablet 5 mg PO DAILY metoprolol succinate 25 mg tablet extended release 24 hr 25 mg PO DAILY turmeric root extract 500 mg Capsule 500 mg PO QAM ferrous sulfate 325 mg (65 mg iron) tablet 325 mg PO QAM diclofenac sodium 1 % gel 1 ea TOPICAL UD amlodipine [Norvasc] 5 mg Tablet 5 mg PO QAM Qty: 1 0RF levothyroxine 88 mcg tablet 88 mcg PO [id number] Rx Instructions: Only takes it on /Thu//Thu/Sat/Sun Referrals Referrals: Elizabeth Vanegas DO [Primary Care Provider] -
[2023-04-28 13:11] LABS: Appearance Urine Clear (Clear); Bacteria Urine Automated 4+ (Negative); Bilirubin Urine Negative (Negative); Blood Urine Negative (Negative); Color Urine Dark Yellow; Epithelial Cell Urine Auto 0-5 /lpf (0-5); Glucose Urine UA Negative (Negative); Ketones Urine Trace (Negative); Leukocyte Esterase Urine Trace (Negative); Nitrite Urine Negative (Negative); Protein Urine 1+ (Negative); RBC Urine Automated 0-4 /hpf (0-4); Specific Gravity Urine 1.022 (1.000-1.030); Urobilinogen Urine Negative (Negative)
[2023-04-28 13:15] LABS: Basophils # (auto) 0.04 K/uL (0.00-0.20); Basophils % (auto) 0.3 %; Eosinophils % (auto) 0.7 %; Hematocrit (blood only) 43.8 % (37.0-47.0); Hemoglobin 14.6 g/dl (12.0-16.0); Immature Granulocytes # (auto) 0.07 K/uL (0.01-0.20); Immature Granulocytes % (auto) 0.5 %; Lymphocytes # (auto) 1.18 K/uL (1.20-3.40); Lymphocytes % (auto) 8.4 %; Mean Corpuscular Hemoglobin 32.5 pg (25.0-34.0); Mean Corpuscular Hgb Conc 33.3 g/dL (32.0-36.0); Mean Corpuscular Volume 97.6 fL (80.0-100.0); Mean Platelet Volume 10.6 fL (9.4-12.4); Monocytes # (auto) 0.64 K/uL (0.11-0.59); Monocytes % (auto) 4.6 %; Neutrophils # (auto) 12.03 K/uL (1.40-6.50); Neutrophils % (auto) 85.5 %; Platelet Count 295 K/uL (130-400); RDW Coefficient of Variation 14.5 % (11.5-14.5); RDW Standard Deviation 52.1 fL (36.4-46.3); Red Blood Count 4.49 M/uL (4.20-5.40); White Blood Count 14.06 K/ul (4.8-10.8)
--- OUTSIDE RECORDS SUMMARY | 2023-04-28 13:15 | External Medical Summary | Summary of Care ---
Author Name Unknown Organization [facility] Address [address] [facility] [place] [address] Phone [phone] Care Team Providers Care Building Drafting Officer Name Role Phone VanegasElizabeth chavez Primary Care Provider [phone] Reason for Visit * Reason Comments Medication Refill Encounter Details Date Type Department Care Team (Late st Contact Info) Description 03/27/2023 Refill Cardiology [address] [place] [address] Harrison Venegas MD [address] [place] [address] Allergies No known active allergiesdocumented as of this encounter (statuses as of 03/30/2023) Medications Medication Sig Dispensed Refills Start Date End Date Status vitamin b-12 (CYANOCOBALAMIN) 1000 MCG/ML injection Inject 1,000 mcg into a large muscle. 1 injection monthly 0 Active acetaminophen (TYLENOL) 500 MG Tablet Take 1 Tablet by mouth every 6 hours as needed for Pain. 0 Active nitroglycerin (NITROSTAT) 0.4 MG SUBL 0 10/19/2018 Active Immune Globulin (Human) 1 GM/10ML Injection Solution (Gammagard/Gamunex-C /Gammaked) Administer intravenously Every Month . 0 Active Safety Syringe/Needle 25G X 5/8" 3 ML (Syringe/Needle (Disp)) Use as directed for vitamin B12 injections. 10 Each 0 08/07/2021 Active Insulin Syringe-Needle U-100 30G X 1/2" 1 ML Use as directed for vitamin B12 injections. 10 Each 0 08/12/2021 Active Metoprolol Succinate ER 25 MG Oral Tablet Extended Release 24 Hour (toPROL XL) TAKE ONE-HALF TABLET BY MOUTH DAILY 50 Tablet 3 01/29/2022 Active Turmeric 500 MG Oral Capsule Take by mouth 1 Capsule in the morning. 30 Capsule 1 01/29/2022 Active Ferrous Sulfate 325 (65 Fe) MG Oral Tablet (Feosol) Take by mouth 1 Tablet in the morning. 90 Tablet 1 01/29/2022 Active Vitamin D3 50 MCG (2000 UT) Oral Capsule Take by mouth 1 Capsule in the morning. 30 Capsule 0 01/29/2022 Active Aspirin EC 81 MG Oral Tablet Delayed Release Take by mouth 1 Tablet in the morning. 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 90 Tablet 2 10/15/2022 Active Atorvastatin Calcium 40 MG Oral Tablet (Lipitor) TAKE ONE TABLET BY MOUTH EVERY DAY 100 Tablet 3 10/08/2022 4 Active predniSONE 5 MG Oral Tablet (Deltasone) TAKE ONE TABLET BY MOUTH EVERY DAY IN THE MORNING 100 Tablet 1 10/02/2022 4 Active Gabapentin 600 MG Oral Tablet (Neurontin) TAKE ONE TABLET BY MOUTH THREE TIMES A DAY 270 Tablet 1 08/15/2022 4 Active DULoxetine HCl 30 MG Oral Capsule Delayed Release Particles (Cymbalta) TAKE ONE CAPSULE BY MOUTH EVERY DAY 90 Capsule 1 08/01/2022 4 Active Cyanocobalamin 1000 MCG/ML Injection Solution (Cyanocobalamin) INJECT 1000 MCG INTO A LARGE MUSCLE EVERY 30 DAYS 3 mL 3 05/08/2022 4 Active amLODIPine Besylate 5 MG Oral Tablet (Norvasc) TAKE ONE TABLET BY MOUTH EVERY DAY IN THE MORNING 100 Tablet 3 10/22/2022 4 Active Pantoprazole Sodium 20 MG Oral Tablet Delayed Release (Protonix)Indication s:Gastroesophageal reflux disease without esophagitis Take 1 Tablet by mouth in the morning. 100 Tablet 3 01/13/2023 Active Hydrocortisone (Perianal) 2.5 % External CreamIndications:Int ernal hemorrhoids Administer into the rectum 2 times a day. For up to 14 days. 30 g 1 02/17/2023 Active Diclofenac Sodium 1 % External Gel (Voltaren)Indication s:Inclusion body myositis (IBM) Apply topically to affected area 2 times a day. 300 g 0 02/17/2023 Active Levothyroxine Sodium 88 MCG Oral Tablet (Levoxyl)Indications :Acquired hypothyroidism TAKE ONE TABLET BY MOUTH SIX DAYS PER WEEK 100 Tablet 2 02/23/2023 4 Active Metoprolol Succinate ER 25 MG Oral Tablet Extended Release 24 Hour (toPROL XL) TAKE ONE-HALF TABLET BY MOUTH DAILY 50 Tablet 3 03/30/2023 4 Active documented as of this encounter (statuses as of 03/30/2023) Active Problems Problem Noted Date Diagnosed Date Cardiomyopathy 03/03/2022 At risk for malnutrition 01/24/2022 Hiatal hernia 01/22/2022 Dysphagia 01/22/2022 Hypertensive heart disease without heart failure 12/25/2021 Acquired hypothyroidism 08/01/2020 Diastolic dysfunction 08/01/2020 Overview: Stage I Gastro-esophageal reflux disease without esophag itis 03/02/2020 Primary osteoarthritis of both knees 03/02/2020 Essential (primary) hypertension 08/26/2019 Actinic keratosis 03/23/2019 Chronic inflammatory demyelinating polyneuritis 02/16/2019 Hyperlipidemia with target LDL less than 70 10/11 Coronary artery disease invo lving [place] coronary artery of [place] heart without angina pectoris 08/10/2018 S/P angioplasty with stent 08/10/2018 History of [place] (myocardial infarction) 08/10/2018 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 12/19/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 documented as of this encounter (statuses as of 03/30/2023) Resolved Problems Problem Noted Date Diagnosed Date Resolved Date Aspiration pneumonia of both lower lobes due to gastric secretions 01/24/2022 07/24/2022 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 08/26/2019 08/26/2019 SVT (supraventricular tachycardia) 10/22/2018 03/02/2020 Chronic systolic congestive heart failure 10/22/2018 08/01/2020 Protein-calorie malnutrition 08/10/2018 02/16/2019 Loss of weight 08/10/2018 02/16/2019 Skin abnormality 08/03/2018 03/02/2020 Irregular heart rate 08/03/201808/01/ 021 Neuropathy 07/03/2017 03/02/2020 Acute right-sided low back p ain without sciatica 12/19/2016 10/22/2017 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 Mixed dyslipidemia 05/16/2005 7 OSTEOARTHROS NOS-L-LEG 04/18 documented as of this encounter (statuses as of 03/30/2023) Immunizations Name Administration Dates Next Due COVID-19 mRNA, LNP-s, No Pre serve, 2-Dose Series (Study2gether) 07/10/2020,06/19/2020 COVID-19, LNP-s, No Preserve , Marlon-sucrose, Ages 12+ (Pfizer) 07/23/2021 Covid-19, Mrna, Lnp-s, Pf, B ivalent, 30 Mcg, IM, 12 yrs and above (Study2gether) 02/04/2022 Pneumococcal Conjugate Vacc, 13 Valent (Prevnar) 07/18/2016 Pneumococcal Polysaccharide PPV23 (Pneumovax) 04/11/2015,08/04/2014,05/23/2005 Seasonal Influenza Intranasal 02/17/2014 Seasonal Influenza Virus Vac cine, Unspecified Formulation 01/25/2018,01/23/2017 Seasonal Influenza, PF, 6 M & above, IM , (FluLaval or Fluzone) 01/10/2019,01/25/2018,01/23/2017 Seasonal Influenza, Quadriva lent Hd (Fluzone Hd) 02/17/2023,02/04/2022,01/08/2021 Seasonal Influenza, Quadriva lent Hd, 65+ Yrs 01/12/2020 Seasonal Influenza, Split, I IV3, With Preserve, Inj 01/15/2016,03/07/2015,01/25/2013,05/26 Seasonal Influenza, Trivalen t, High Dose, No Preserve, IM 02/09/2018 TDAP (age 10 and older)(Boostrix) 07/30/2016 Varicella Zoster Vaccine (Adult) 02/27/2017 Zoster Vaccine Recombinant (Shingrix) 08/02/2020 ,02/24/2020 documented as of this encounter Social History Tobacco Use Types Packs/Day Years Used Date Smoking Tobacco: Never Smokeless Tobacco: Never Alcohol Use Standard Drinks/Week Comments No 0 (1 standard drink = 0.6 oz pur e alcohol) PHQ-2 Answer Date Recorded PHQ Adult Total Score 0 08/01/2020 Hunger Vital Sign Answer Date Recorded Worried About Running Out of Food in the Last Ye ar Never true 11/19/2018 Ran Out of Food in the Last Year Never true 11/19/2018 Sex and Gender Information Value Date Recorded Sex Assigned at Female 03/05/2020 9:00 AM EST Gender Identity Female 03/05/2020 9:00 AM EST Sexual Orientation Straight 03/05/2020 9: 00 AM EST Job Start Date Occupation Industry Not on file Not on file Not on file documented as of this encounter Functional Status Functional Status Response Date of Assess ment Are you deaf or do you have serious difficulty h earing? No 10/19/2014 Are you blind or do you have serious difficulty seeing, even when wearing glasses? No 10/19/2014 Do you have serious difficul ty walking or climbing stairs? (5 years old or older) No 10/19/2014 Do you have difficulty dress ing or bathing? (5 years old or older) No 10/19/2014 Because of a physical, menta l, or emotional condition, do you have difficulty doing errands alone such as visiting a doctor s office or shopping? (15 years old or older) No 10/20/19 15 Cognitive Status Response Date of Assessm ent Because of a physical, menta l, or emotional condition, do you have serious difficulty concentrating, remembering, or making decisions? (5 years old or older) No 10/19/2014 documented as of this encounter Miscellaneous Notes * Telephone Encounter - Nina Smith PA-C - 03/30/2023 12:30 PM ESTSigned Prescriptions: Disp Refills Metoprolol Succinate ER 25 MG Oral Tablet *50 Tab*3 Sig: TAKE ONE-HALF TABLET BY MOUTH DAILY Authorizing Provider: NINA SMITH * Telephone Encounter - Tara Cuba LPN - 03/30/2023 12:05 PM ESTPending Prescriptions: Disp Refills Metoprolol Succinate ER 25 MG Oral Tablet *50 Tab*3 Sig: TAKE ONE-HALF TABLET BY MOUTH DAILY * Telephone Encounter - Tara Cuba LPN - 03/30/2023 12:03 PM EST Did you pend patient's preferred pharmacy and medication before forwarding?yes Pharmacy: [facility] Pending Prescriptions: Disp Refills Metoprolol Succinate ER 25 MG Oral Tablet*50 Tab*3 Sig: TAKE ONE-HALF TABLET BY MOUTH DAILY Last Visit: 02/17/2023 (in office), Visit date not found (telemedicine) Next Visit: 09/29/2023 If no future appointments scheduled, and last appointment is greater than a year ago, please schedule patient for a follow-up appointment Last date the medication was ordered: 01/29/2022 Is this request for a controlled substance? NO Urine Drug Screen:No results found for this or any previous visit. Patient Phone Numbers Labs: Lab Results Component Value Date/Time CREAT 0.9 02/17/2023 03:34 PM CREAT 0.65 (A) 07/19/2021 12:00 AM CREAT 0.8 11/16/2019 11:16 AM POTASSIUM 5.5 (H) 02/17/2023 03:34 PM POTASSIUM 4.8 07/19/2021 12:00 AM POTASSIUM 5.3 (H) 11/16/2019 11:16 AM TSH 0.92 02/17/2023 03:34 PM TSH 0.52 08/26/2019 11:46 AM LDLCALC 83 07/23/2021 12:24 PM LDLCALC UNINTERPRETABLE RESULT 03/24/2018 10:08 AM LDLDIRECT 68 08/05/2022 04:08 PM LDLDIRECT 91 08/26/2019 11:46 AM ALT 28 11/19/2021 11:10 AM ALT 34 11/16/2019 11:16 AM ' documented in this encounter Plan of Treatment Upcoming Encounters Date Type Department Care Team (Late st Contact Info) Description 06/04/2023 1:00 PM EST Office Visit Orthopaedics [address] [place] [phone] Koffi Logan MD [address] [place] [address] 09/29/2023 10:30 AM EDT Office Visit Family Medicine [address] [place] [phone] [address]eg[address] [place] [address] 09/29/2023 11:30 AM EDT Office Visit Cardiology [address] [place] [address] Nina Smith PA-C [address] [place] [phone] Health Maintenance Due Date Last Done Comments Depression Screening 08/01/2021 08/01/2020 COVID-19 Vaccine ( season) 2022 02/04/2022, 07/23/2021, 07/10/2020, Additional history exists DXA Scan 07/31/2023 07/30/2016, 020 08/2005, 04/20/2003, Additional history exists GFR 02/18/2024 02/17/2023, 07/13, 02/14/2022, Additional history exists TSH 02/18/2024 02/17/2023, 07/13, 07/23/2021, Additional history exists Albumin/Creatinine Ratio 11/06/2025 11/06/2022, 09/11 DTaP,Tdap,and Td Vaccines (2 - Td or Tdap) 07/30/2026 07/30/2016 Pneumococcal Vaccine: 65+ Years Completed 07/18/2016, 04/11/2015, 08/04/2014, Additional history exists Zoster Vaccines Completed 08/02/2020, 02/11, 02/27/2017 Influenza Vaccine (FLU shot) Completed 10/2022, 02/04/2022, 01/08/2021, Additional history exists GARDASIL-HPV IMMUNIZATION SERIES Aged Out No longer eligible based on patient's age to complete this topic Hepatitis B Aged Out No longer eligi ble based on patient's age to complete this topic MENINGOCOCCAL (MENACTRA/MENVEO) Aged Out No longer eligible based on patient's age to complete this topic documented as of this encounter Medical Devices Not on filedocumented as of this encounter Care Teams Building Drafting Officer Relationship Specialty Start Date End Date Elizabeth Vanegas DO [address] [place] [address] [place] [address] PCP - General Internal Medicine 08/05/22 documented as of this encounter
--- OUTSIDE RECORDS SUMMARY | 2023-04-28 13:15 | External Medical Summary | Summary of Care ---
Author Name Unknown Organization [facility] Address [address] [facility] [place] [address] Phone [phone] Care Team Providers Care Foam Machine Operator Name Role Phone VanegasElizabeth chavez Primary Care Provider [phone] Reason for Visit * Reason Comments Follow Up B/L knee injection Encounter Details Date Type Department Care Team (Latest Contact Info) Description 03/26/2023 10:30 AM EST Office Visit Orthopaedics [address] [phone] Koffi Logan MD [address] [place] [address] Primary osteoarthritis of both knees* Allergies No known active allergiesdocumented as of this encounter (statuses as of 03/26/2023) Medications Medication Sig Dispensed Refills Start Date [...] DAYS PER WEEK 100 Tablet 2 02/23/2023 Active Hospital, Clinic, or Other Facility Administered Medication Ordered Dose Route Frequency Start Date End Date Status Triamcinolone Acetonide (Kenalog) 40 MG/ML inj 40 mgIndications:Primary osteoarthritis of both knees 40 mg IX ONCE 03/26/2023 03/26/2023 Active Triamcinolone Acetonide (Kenalog) 40 MG/ML inj 40 mgIndications:Primary osteoarthritis of both knees 40 mg IX ONCE 03/26/2023 03/26/2023 Active lidocaine 1 % inj 10 mgIndications:Primary osteoarthritis of both knees 10 mg IX ONCE 03/26/2023 03/26/2023 Active lidocaine 1 % inj 10 mgIndications:Primary osteoarthritis of both knees 10 mg IX ONCE 03/26/2023 03/26/2023 Active documented as of this encounter (statuses as of 03/26/2023) Active Problems Problem Noted Date Diagnosed Date [...] 69 10/11 Coronary artery disease invo lving [place] coronary artery of [place] heart without angina pectoris 08/10/2018 S/P angioplasty with stent 08/10/2018 History of [place] (myocardial infarction) 08/10/2018 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 12/19/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 documented as of this encounter (statuses as of 03/26/2023) Resolved Problems Problem Noted Date Diagnosed Date Resolved Date Aspiration pneumonia of both lower lobes due to gastric secretions 01/24/2022 07/24/2022 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 08/26/2019 08/26/2019 SVT (supraventricular tachycardia) 10/22/2018 03/02/2020 Chronic systolic congestive heart failure 10/22/2018 08/01/2020 Protein-calorie malnutrition 08/10/2018 02/16/2019 Loss of weight 08/10/2018 02/16/2019 Skin abnormality 08/03/2018 03/02/2020 Irregular heart rate 08/03/2018 021 Neuropathy 07/03/2017 03/02/2020 Acute right-sided low back p ain without sciatica 12/19/2016 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 Mixed dyslipidemia 05/16/2005 7 OSTEOARTHROS NOS-L-LEG 04/18 documented as of this encounter (statuses as of 03/26/2023) Immunizations Name Administration Dates Next Due COVID-19 mRNA, LNP-s, No Pre serve, 2-Dose Series (Politapoll) 07/10/2020,06/19/2020 COVID-19, LNP-s, No Preserve , Marlon-sucrose, Ages 12+ (Politapoll) 07/23/2021 Covid-19, Mrna, Lnp-s, Pf, B ivalent, 30 Mcg, IM, 12 yrs and above (Politapoll) 02/04/2022 Pneumococcal Conjugate Vacc, 13 Valent (Prevnar) [...] No 10/19/2014 documented as of this encounter Progress Notes * Koffi Logan MD - 03/26/2023 10:30 AM EST Diana Chandler [id number] Diana Chandler is a 81 year old female who presents for follow-up to [facility] for bilateral knee injury/pain. I saw her initially for this on 09/04/2022 Most recent visit 11/27/2022 Diana Chandler is here unaccompanied Quality: reviewed and agree with Nursing Notes for HPI elements History: History on 09/04/2022 - New pateint chronic B/L knee pain with activity x 2020 Patient denies any PT or injections or injury or bracing or surgery x-ray 08/01/20 H/o Chronic inflammatory demyelinating polyneuritis for which she follows with [facility] neurology IGIV tomorrow Gammagard (IVIG) Dose: 20Grams Dosing Interval: 4 weeks Date of Infusion: 08/04/22 Patient Tolerated Therapy: Yes Next Scheduled Infusion Date: 09/04/22 Next Labs Due: (as ordered by provider) Treatment completed as ordered: Yes Spoke with Shaniqua at [facility] Neurology patient is able to have steroid injection, would not interfere with IGIV infusion tomorrow will send note with EZEQUIEL signature 11/06/2022: Received benefit but not resolution of pain with bilateral steroid injections I performed for her. She is relatively pleased regarding her knees. Additional History 11/27/2022: Reports substantial benefit from Durolane in the left knee on 11/06/2022, desires in the R knee Since that visit: Reported substantial benefit from Durolane provided in the right knee as well as the left. She would like to have those repeated, however it is too early. ROS: ROS per HPI otherwise non-contributory Past Medical History: Diagnosis Date Aspiration pneumonia of both lower lobes due to gastric secretions (HCC) 01/24/2022 COVID-19 12/02/2021 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 [facility] current use of systemic steroids 06/06/2016 Loss of weight 08/10/2018 Osteoarthrosis, unspecified whether generalized or localized, lower leg knees Family History Problem Relation Age of Onset Heart Disorder Mother mi age 88 Lung Disorder Father emphysema Social History Socioeconomic History Marital status: Spouse name: Alison Number of children: 2 Years of education: Not on file Highest education level: Not on file Occupational History 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 Tobacco Use Smoking status: Never Smokeless tobacco: Never Vaping Use Vaping Use: Never used Substance and Sexual Activity Alcohol use: No Drug use: No Sexual activity: Yes Partners: Male control/protection: Surgical Comment: menopausal hyst Other Topics Concern Not on file Social History Narrative Not on file Social Determinants of Health Financial Resource Strain: Not on file Food Insecurity: No Food Insecurity (11/19/2018) Hunger Vital Sign Worried About Running Out of Food in the Last Year: Never true Ran Out of Food in the Last Year: Never true Transportation Needs: Not on file Physical Activity: Not on file Stress: Not on file Social Connections: Not on file Intimate Partner Violence: Not on file Housing Stability: Not on file Physical Exam Constitutional: Generally well-nourished and in no acute distress Psychiatric: Mood and Affect normal Eyes: EOMI Respiratory: Normal respiratory effort with regular rate and rhythm Cardiovascular: No edema in the affected extremity(s) Knee Exam, Bilateral Inspection: Alignment: Normal Bilateral Effusion: Negative Bilateral Palpation: Tender palpate bilaterally along the medial and lateral joint ROM: Flexion/Neutral/Extension: L - 120/0/0, R - 120/0/0 Popliteal Angle (Hamstring Flexibility): 30 Bilateral Radiology (I have personally reviewed the following films): 08/01/2020: 4 view xr of each knee FINDINGS Right knee: Marginal osteophyte formation. Mild loss of cartilage space at the medial tibiofemoral compartment. Left knee: Marginal osteophyte formation. Mild loss of cartilage space at the medial tibiofemoral compartment. IMPRESSION IMPRESSION Mild osteoarthritis of both knees Assessment and Plan: 1) chronic bilateral knee pain Suspect secondary to DJD Note: I have not obtained additional x-rays as patient reports she recently had them obtained in another system and did not want another co-pay. We were not able to locate those other x-rays a. Discussed with the patient there could be some risk to doing steroid injections today without having x-rays. Follows with Neruology - we discussed will steroid injections with their office and they were okay with this given she is having injection tomorrow with Gammagard (see history above) Bilateral intra-articular steroid injection performed 09/04/2022 Received benefit but not resolution of pain with bilateral steroid injections I performed for her. She was relatively pleased regarding her knees following the steroid injections but elected to try viscosupplementation Sodium Hyaluronate (Durolane) 60mg/3ml 3ml injected intra-articular in the left knee on 11/06/2022 and R knee on 11/27/2022 helped her significantly. She is very pleased. She would like to have these repeated as soon as she is eligible. Recommended visit after 05/30/2023 to repeat in both knees Procedure note (knee injection), bilateral : Time out: Prior to injection, a time out was called to confirm the administration of appropriate medicine, patient name, procedure and confirm to the best of our ability and knowledge the presence of any necessary risks and benefits. Patient verbalizes understanding. Sterile techinique applied. Skin sterilized with alcohol swab. Knee injected using 1.5 inch, 22 gauge needle. Injected with 1 ml lidocaine 1%, triamcinolone acetonide 40mg/ml 1 ml. Patient toleratedprocedure with no significant bleeding or adverse reaction. Patient instructed to call or return to clinic for fever or warmth and redness at injection site for potential infection. Patient also advised as to potential for steroid flare reaction including increased pain and redness at injection site which should be treated with ice and resolve within 24 hours. Koffi Logan MD Primary [facility] Sports Medicine Orthopaedics [address] [address] documented in this encounter Nursing Notes * Gerri Regalado LPN - 03/26/2023 10:56 AM EST F/U chronic B/L knee pain with activity x 2020 Right knee Durolane injection 11/27/2022 Left knee Durolane 11/06/2022 Bilateral intra-articular steroid injection performed today 09/04/2022 (8 weeks and 2 days) x-ray 08/01/20 documented in this encounter Plan of Treatment Upcoming Encounters Date Type Department Care Team (Late st Contact Info) Description 06/04/2023 1:00 PM EST Office Visit Orthopaedics [address] [place] [address] Koffi Logan MD [address] [place] [address] 09/29/2023 10:30 AM EDT Office Visit Family Medicine [address] [place] [phone] Vanegas[address] [place] [address] 09/29/2023 11:30 AM EDT Office Visit Cardiology [address] [place] [address] Elton Smith PA-C [address] [place] [address] Health Maintenance Due Date Last Done Comments [...] Not on filedocumented as of this encounter Visit Diagnoses Diagnosis Primary osteoarthritis of both knees- Primary Primary localized osteoarthrosis, lower leg documented in this encounter Care Teams Foam Machine Operator Relationship Specialty Start Date End Date Elizabeth Vanegas DO [address] [place] [address] [place] [address] PCP - General Internal Medicine 08/05/22 documented as of this encounter
--- OUTSIDE RECORDS SUMMARY | 2023-04-28 13:15 | External Medical Summary | Summary of Care ---
Author Name Unknown Organization [facility] Address [address] [facility] [place] [address] Phone [phone] Care Team Providers Care Api Architect Name Role Phone VanegasElizabeth chavez Primary Care Provider [phone] Reason for Visit * Reason Comments Follow Up B/L knee injection Encounter Details Date Type Department Care Team (Latest Contact Info) Description 03/26/2023 10:30 AM EST Office Visit Orthopaedics [address] [phone] Koffi Logan MD [address] [place] [address] Primary osteoarthritis of both knees* Allergies No [...] knees 40 mg IX ONCE 03/26/2023 03/26/2023 Ended Triamcinolone Acetonide (Kenalog) 40 MG/ML inj 40 mgIndications:Primary osteoarthritis of both knees 40 mg IX ONCE 03/26/2023 03/26/2023 Ended lidocaine 1 % inj 10 mgIndications:Primary osteoarthritis of both knees 10 mg IX ONCE 03/26/2023 03/26/2023 Ended lidocaine 1 % inj 10 mgIndications:Primary osteoarthritis of both knees 10 mg IX ONCE 03/26/2023 03/26/2023 Ended documented as of this encounter (statuses as [...] 69 10/11 Coronary artery disease invo lving [place] coronary artery of [place] heart without angina pectoris 08/10/2018 S/P angioplasty with stent 08/10/2018 History of [place] (myocardial infarction) 08/10/2018 Idiopathic chronic gout of [...] back p ain without sciatica 12/19/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 06/06/2016 03/24/2018 [...] mRNA, LNP-s, No Pre serve, 2-Dose Series ([employer]) 07/10/2020,06/19/2020 COVID-19, LNP-s, No Preserve , Marlon-sucrose, Ages 12+ ([employer]) 07/23/2021 Covid-19, Mrna, Lnp-s, Pf, B ivalent, 30 Mcg, IM, 12 yrs and above ([employer]) 02/04/2022 Pneumococcal Conjugate Vacc, 13 Valent (Prevnar) 07/18/2016 Pneumococcal Polysaccharide PPV23 (Pneumovax) 04/11/2015,08/04/2014,05/23/2005 Seasonal Influenza Intranasal 02/17/2014 Seasonal Influenza Virus Vac cine, Unspecified Formulation 01/25/2018,01/23/2017 Seasonal Influenza, PF, 6 M & above, IM , (FluLaval or Fluzone) 01/10/2019,01/25/2018,01/23/2017 Seasonal Influenza, Quadriva lent Hd (Fluzone Hd) 02/17/2023,02/04/2022,01/08/2021 Seasonal Influenza, Quadriva lent Hd, 65+ Yrs 01/12/2020 Seasonal Influenza, Split, I IV3, With Preserve, Inj 01/15/2016,03/07/2015,01/25/2013,05/26,01/18/2003 Seasonal Influenza, Trivalen t, High Dose, No [...] - 03/26/2023 10:30 AM EST Diana Chandler [id number] Diana Chandler is a 81 year old female who presents for follow-up to [facility] for bilateral knee [...] demyelinating polyneuritis for which she follows with [facility] neurology IGIV tomorrow Gammagard (IVIG) Dose: 20Grams Dosing Interval: 4 weeks Date of Infusion: 08/04/22 Patient Tolerated Therapy: Yes Next Scheduled Infusion Date: 09/04/22 Next Labs Due: (as ordered by provider) Treatment completed as ordered: Yes Spoke with Shaniqua at [facility] Neurology patient is able to have steroid [...] gastric secretions (HCC) 01/24/2022 COVID-19 12/02/2021 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 retirement current use of systemic steroids 06/06/2016 Loss [...] on file Occupational History 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 Patient tolerated procedure with no significant bleeding or adverse reaction. [...] Logan MD Primary Care Sports Medicine Orthopaedics [address] [phone] documented in this encounter Nursing Notes * [...] 06/04/2023 1:00 PM EST Office Visit Orthopaedics [address] [place] [phone] Koffi Logan MD [address] [place] [id number] 09/29/2023 10:30 AM EDT Office Visit Family Medicine [address] [place] [phone] Elizabeth Vaneg[address] [place] [address] 09/29/2023 11:30 AM EDT Office Visit Cardiology [address] [place] [address] Elton Smith PA-C [address] [place] [address] Health Maintenance Due Date Last Done Comments Depression Screening 08/01/2021 08/01/2020 COVID-19 Vaccine ( season) 2022 02/04/2022, 07/23/2021, 07/10/2020, Additional history exists DXA Scan 07/31/2023 07/30/2016, 02/0 08/2005, 04/20/2003, Additional history exists GFR 02/18/2024 [...] osteoarthrosis, lower leg documented in this encounter Administered Medications Inactive Administered Medications - up to 3 most recent administrations Medication Order MAR Action Action Date Dose Rate Site lidocaine 1 % inj 10 mg 10 mg, Intra-Articular, ONCE, On Renu 03/26/23 at 1145, For 1 dose Given 03/26/2023 3:45 PM EST 10 mg Knee Right lidocaine 1 % inj 10 mg 10 mg, Intra-Articular, ONCE, On Renu 03/26/23 at 1145, For 1 dose Given 03/26/2023 3:45 PM EST 10 mg Knee Left Triamcinolone Acetonide (Kenalog) 40 MG/ML inj 40 mg 40 mg, Intra-Articular, ONCE, On Renu 03/26/23 at 1145, For 1 dose Given 03/26/2023 3:46 PM EST 40 mg Knee Right Triamcinolone Acetonide (Kenalog) 40 MG/ML inj 40 mg 40 mg, Intra-Articular, ONCE, On Renu 03/26/23 at 1145, For 1 dose Given 03/26/2023 3:46 PM EST 40 mg Knee Left documented in this encounter Care Teams Api Architect Relationship Specialty Start Date End Date Elizabeth Vanegas DO [address] [place] [address] [place] [phone] PCP - General Internal Medicine 08/05/22 documented as of this encounter
--- OUTSIDE RECORDS SUMMARY | 2023-04-28 13:15 | External Medical Summary | Summary of Care ---
Author Name Unknown Organization [facility] Address [address] [facility] [place] [address] Phone [phone] Care Team Providers Care Engineer Automated Equipment Name Role Phone VanegasElizabeth chavez Primary Care Provider [phone] Reason for Visit * Reason Comments Follow Up B/L knee injection Encounter Details Date Type Department Care Team (Latest Contact Info) Description 03/26/2023 10:30 AM EST Office Visit Orthopaedics [address] [phone] Koffi Logan MD [address] [place] [address] Primary osteoarthritis of both knees* Allergies No [...] 69 10/11 Coronary artery disease invo lving [place] coronary artery of [place] heart without angina pectoris 08/10/2018 S/P angioplasty with stent 08/10/2018 History of [place] (myocardial infarction) 08/10/2018 Idiopathic chronic gout of [...] back p ain without sciatica 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 06/06/2016 03/24/2018 [...] mRNA, LNP-s, No Pre serve, 2-Dose Series ([employer]) 07/10/2020,06/19/2020 COVID-19, LNP-s, No Preserve , Marlon-sucrose, Ages 12+ ([employer]) 07/23/2021 Covid-19, Mrna, Lnp-s, Pf, B ivalent, 30 Mcg, IM, 12 yrs and above ([employer]) 02/04/2022 Pneumococcal Conjugate Vacc, 13 Valent (Prevnar) [...] - 03/26/2023 10:30 AM EST Diana Chandler [id number] Diana Chandler is a 81 year old female who presents for follow-up to [facility] for bilateral knee [...] demyelinating polyneuritis for which she follows with [facility] neurology IGIV tomorrow Gammagard (IVIG) Dose: 20Grams Dosing Interval: 4 weeks Date of Infusion: 08/04/22 Patient Tolerated Therapy: Yes Next Scheduled Infusion Date: 09/04/22 Next Labs Due: (as ordered by provider) Treatment completed as ordered: Yes Spoke with Shaniqua at [facility] Neurology patient is able to have steroid [...] gastric secretions (HCC) 01/24/2022 COVID-19 12/02/2021 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 06/06/2016 Loss [...] on file Occupational History 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 Tobacco Use Smoking status: Never Smokeless tobacco: [...] Logan MD Primary Care Sports Medicine Orthopaedics [address] [phone] documented in this encounter Nursing Notes * [...] 06/04/2023 1:00 PM EST Office Visit Orthopaedics [address] [place] [phone] Koffi Logan MD [address] [place] [address] 09/29/2023 10:30 AM EDT Office Visit Family Medicine [address] [phone] [address] [place] [address] 09/29/2023 11:30 AM EDT Office Visit Cardiology [address] [place] [address] Elton Smith PA-C [address] [place] [address] Health Maintenance Due Date Last Done Comments [...] leg documented in this encounter Care Teams Engineer Automated Equipment Relationship Specialty Start Date End Date Elizabeth Vanegas DO [address] [place] [address] [place] [address] PCP - General Internal Medicine 08/05/22 documented as of this encounter
--- OUTSIDE RECORDS SUMMARY | 2023-04-28 13:15 | External Medical Summary | Summary of Care ---
Author Name Unknown Organization [facility] Address [address] [place] [address] Phone [phone] Care Team Providers Care Multi Disciplined Language Analyst Name Role Phone VanegasElizabeth chavez Primary Care Provider [phone] Encounter Details Date Type Department Care Team (Late st Contact Info) Description 04/20/2023 Documentation Home Infusion, [place] [address] [place] [address] Infusion, Nurse [place] [address] [place] [address] Allergies No known active allergiesdocumented as of this encounter (statuses as of 04/20/2023) Medications Medication Sig Dispensed Refills Start Date [...] DAILY 50 Tablet 3 03/30/2023 4 Active DULoxetine HCl 30 MG Oral Capsule Delayed Release Particles (Cymbalta) Take 1 capsule by mouth daily 90 Capsule 1 03/30/2023 Active documented as of this encounter (statuses as of 04/20/2023) Active Problems Problem Noted Date Diagnosed Date [...] 69 10/11 Coronary artery disease invo lving [place] coronary artery of [place] heart without angina pectoris 08/10/2018 S/P angioplasty with stent 08/10/2018 History of [place] (myocardial infarction) 08/10/2018 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 Mixed dyslipidemia 05/16/2005 7 OSTEOARTHROS NOS-L-LEG 04/18 documented as of this encounter (statuses as of 04/20/2023) Immunizations Name Administration Dates Next Due COVID-19 mRNA, LNP-s, No Pre serve, 2-Dose Series ([employer]) 07/10/2020,06/19/2020 COVID-19, LNP-s, No Preserve , Marlon-sucrose, Ages 12+ ([employer]) 07/23/2021 Covid-19, Mrna, Lnp-s, Pf, B ivalent, 30 Mcg, IM, 12 yrs and above ([employer]) 02/04/2022 Pneumococcal Conjugate Vacc, 13 Valent (Prevnar) [...] as of this encounter Progress Notes * Tomás Long RN - 04/20/2023 12:23 PM EST 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) Medication Administered: Gammagard (IVIG) Dose: 20Grams Dosing Interval: 4 weeks Date of Infusion: 04/20/23 Patient Tolerated Therapy: Yes Next Scheduled Infusion Date: 05/19/23 Next Labs Due: (as ordered by provider) Number of Refills Remaining?: 9 Treatment completed as ordered: Yes documented in this encounter Plan of Treatment Upcoming Encounters Date Type Department Care Team (Late st Contact Info) Description 06/04/2023 1:00 PM EST Office Visit Orthopaedics [address] [place] [phone] Koffi Logan MD [address] [place] [address] 09/29/2023 10:30 AM EDT Office Visit Family Medicine [address] [place] [phone] [address] Vaneg[address] [place] [address] 09/29/2023 11:30 AM EDT Office Visit Cardiology [address] [place] [address] Elton Smith PAG[place] [address] [place] [address] Health Maintenance Due Date Last Done Comments [...] filedocumented as of this encounter Care Teams Multi Disciplined Language Analyst Relationship Specialty Start Date End Date Elizabeth Vanegas DO [address] [place] [address] [place] [phone] PCP - General Internal Medicine 08/05/22 documented as of this encounter
--- OUTSIDE RECORDS SUMMARY | 2023-04-28 13:16 | External Medical Summary | Summary of Care ---
Author Name Unknown Organization [facility] Address [address] [facility] [place] [address] Phone [phone] Care Team Providers Care Construction Person Name Role Phone Elizabeth Vanegas DO Primary Care Provider + [phone] Reason for Visit * Reason Comments Re-Check Pt c/o hand and knee (bilateral) worsening pain, had a knee injection, that seemed to help; discuss increasing prednisone. Encounter Details Date Type Department Care Team (Latest Contact Info) Description 02/17/2023 2:30 PM EST Office Visit Family Medicine [address] [phone] Elizabeth Vanegas [address] [place] [id number] Malaise and fatigue*; Internal hemorrhoids; Inclusion body myositis (IBM); Acquired hypothyroidism; Primary osteoarthritis of both knees; Essential (primary) hypertension; S/P angioplasty with stent Allergies No known active allergiesdocumented as of this encounter (statuses as of 02/17/2023) Medications Medication Sig Dispensed Refills Start Date End Date Status vitamin b-12 (CYANOCOBALAMIN) 1000 MCG/ML injection Inject 1,000 mcg into a large muscle. 1 injection monthly 0 Active acetaminophen (TYLENOL) 500 MG Tablet Take 1 Tablet by mouth every 6 hours as needed for Pain. 0 Active nitroglycerin (NITROSTAT) 0.4 MG SUBL 0 10/20/19 19 Active Immune Globulin (Human) 1 GM/10ML Injection Solution (Gammagard/Gamunex -C/Gammaked) Administer intravenously Every Month . 0 Active Safety Syringe/Needle 25G X 5/8" 3 ML (Syringe/Needle (Disp)) Use as directed for vitamin B12 injections. 10 Each 0 08/08/19 22 Active Insulin Syringe-Needle U-100 30G X 1/2" 1 ML Use as directed for vitamin B12 injections. 10 Each 0 08/13/19 Active Metoprolol Succinate ER 25 MG Oral Tablet Extended Release 24 Hour (toPROL XL) TAKE ONE-HALF TABLET BY MOUTH DAILY 50 Tablet 3 01/30/20 Active Turmeric 500 MG Oral Capsule Take by mouth 1 Capsule in the morning. 30 Capsule 1 01/30/20 Active Ferrous Sulfate 325 (65 Fe) MG Oral Tablet (Feosol) Take by mouth 1 Tablet in the morning. 90 Tablet 1 01/30/20 Active Vitamin D3 50 MCG (2000 UT) Oral Capsule Take by mouth 1 Capsule in the morning. 30 Capsule 0 01/30/20 Active Aspirin EC 81 MG Oral Tablet Delayed Release Take by mouth 1 Tablet in the morning. 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 90 Tablet 2 10/16/19 23 Active Atorvastatin Calcium 40 MG Oral Tablet (Lipitor) TAKE ONE TABLET BY MOUTH EVERY DAY 100 Tablet 3 10/09/19 23 024 Active predniSONE 5 MG Oral Tablet (Deltasone) TAKE ONE TABLET BY MOUTH EVERY DAY IN THE MORNING 100 Tablet 1 10/03/19 23 024 Active Gabapentin 600 MG Oral Tablet (Neurontin) TAKE ONE TABLET BY MOUTH THREE TIMES A DAY 270 Tablet 1 08/16/19 23 024 Active DULoxetine HCl 30 MG Oral Capsule Delayed Release Particles (Cymbalta) TAKE ONE CAPSULE BY MOUTH EVERY DAY 90 Capsule 1 08/02/19 23 024 Active Cyanocobalamin 1000 MCG/ML Injection Solution (Cyanocobalamin) INJECT 1000 MCG INTO A LARGE MUSCLE EVERY 30 DAYS 3 mL 3 05/08/19 23 024 Active Levothyroxine Sodium 88 MCG Oral Tablet (Levoxyl)Indicatio ns:Acquired hypothyroidism TAKE ONE TABLET BY MOUTH SIX DAYS PER WEEK 100 Tablet 2 04/08/20 22 023 Active amLODIPine Besylate 5 MG Oral Tablet (Norvasc) TAKE ONE TABLET BY MOUTH EVERY DAY IN THE MORNING 100 Tablet 3 10/23/19 23 024 Active Pantoprazole Sodium 20 MG Oral Tablet Delayed Release (Protonix)Indicati ons:Gastroesophage al reflux disease without esophagitis Take 1 Tablet by mouth in the morning. 100 Tablet 3 01/14/20 23 Active Hydrocortisone (Perianal) 2.5 % External CreamIndications:I nternal hemorrhoids Administer into the rectum 2 times a day. For up to 14 days. 28 g 1 02/18/20 23 Active Diclofenac Sodium 1 % External Gel (Voltaren)Indicati ons:Inclusion body myositis (IBM) Apply topically to affected area 2 times a day. 300 g 0 02/18/20 23 Active Diclofenac Sodium 1 % External Gel (Voltaren) Apply to topically as directed 0 023 Discontinued Gabapentin 600 MG Oral Tablet (Neurontin) Take by mouth 1 Tablet in the morning AND 1 Tablet at noon AND 1 Tablet before bedtime. 90 Tablet 1 01/30/20 22 023 Discontinued Wheelchair CushionIndications :Chronic inflammatory demyelinating polyneuritis (HCC) Use with wheelchair to help patient rise from a seated position. 1 Each 0 06/12/19 23 023 Discontinued Diclofenac Sodium 1 % External Gel (Voltaren) APPLY TOPICALLY 3 TIMES A DAY NEEDED. 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 Mixed dyslipidemia 05/16/2005 7 OSTEOARTHROS NOS-L-LEG 04/18 documented as of this encounter (statuses as of 02/17/2023) Immunizations Name Administration Dates Next Due COVID-19 mRNA, LNP-s, No Pre serve, 2-Dose Series (SCRM) 07/10/2020,06/19/2020 COVID-19, LNP-s, No Preserve , Marlon-sucrose, Ages 12+ (SCRM) 07/23/2021 Covid-19, Mrna, Lnp-s, Pf, B ivalent, 30 Mcg, IM, 12 yrs and above (Pfizer) 02/04/2022 Pneumococcal Conjugate Vacc, 13 Valent (Prevnar) 07/18/2016 Pneumococcal Polysaccharide PPV23 (Pneumovax) 04/11/2015,08/04/2014,05/23/2005 SEASONAL INFLUENZA, PF, 6 M & Above, IM , (FLULAVAL or FLUZONE) 01/10/2019,01/25/2018,01/23/2017 Seasonal Influenza Intranasal 02/17/2014 Seasonal Influenza Virus Vac cine, Unspecified Formulation 01/25/2018,01/23/2017 Seasonal Influenza, Quadriva lent Hd (Fluzone Hd) [...] on file documented as of this encounter Last Filed Vital Signs Vital Sign Reading Time Taken Comments Blood Pressure 122/66 02/17/2023 2:45 PM EST Pulse 68 02/17/2023 2:45 PM EST Temperature 37.1 C (98.7 F) 02/17/2023 2:45 PM ES T Respiratory Rate - - Oxygen Saturation 97% 02/17/2023 2:45 PM EST Inhaled Oxygen Concentration - - Weight 57.2 kg (126 lb) 02/17/2023 2:45 PM EST Height - - Body Mass Index 23.81 09/04/2022 2:09 PM EDT documented in this encounter Functional Status Functional Status Response [...] or making decisions? (5 years old or older No 10/19/2014 documented as of this encounter Progress Notes * Elizabeth Vanegas, - 02/17/2023 2:58 PM EST Subjective: Diana Chandler is a 82 year old female. Chief Complaint Patient presents with Re-Check Pt c/o hand and knee (bilateral) worsening pain, had a knee injection, that seemed to help; discussincreasing prednisone. HPI: Diana Chandler presents today for routine follow up. She saw cardiology earlier today and was felt to be doing well from a cardiac standpoint. She was having hard stool and now notices a lump in her genital area. On exam this appears to be a hemorrhoid. She reports having no energy. TSH in the spring was low and her thyroid pill was decreased to 6 days per week. She is sleeping well and denies depression. She saw Dr. Greenfield for her hands but he had nothing to offer. She continues to have knee pain. She sees Dr. Logan for her knees and gets injections every 6 months. She is getting IVIG at home now. No recent gout flares. She is unsure if she wants her COVID shot. 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 1 injection monthly acetaminophen (TYLENOL) 500 MG Tablet Take 1 Tablet by mouth every 6 hours as needed for Pain. nitroglycerin (NITROSTAT) 0.4 MG SUBL Diclofenac Sodium 1 % External Gel (Voltaren) Apply to topically as directed Immune Globulin (Human) 1 GM/10ML Injection Solution (Gammagard/Gamunex- C/Gammaked) Administer intravenously Every Month . Safety Syringe/Needle 25G X 5/8" 3 ML (Syringe/Needle (Disp)) Use as directed for vitamin B12 injections. 10 Each 0 Insulin Syringe-Needle U-100 30G X 1/2" 1 ML Use as directed for vitamin B12 injections. 10 Each 0 Metoprolol Succinate ER 25 MG Oral Tablet Extended Release 24 Hour (toPROL XL) TAKE ONE-HALF TABLETBY MOUTH DAILY 50 Tablet 3 Turmeric 500 MG Oral Capsule Take by mouth 1 Capsule in the morning. 30 Capsule 1 Ferrous Sulfate 325 (65 Fe) MG Oral Tablet (Feosol) Take by mouth 1 Tablet in the morning. 90 Tablet 1 Gabapentin 600 MG Oral Tablet (Neurontin) Take by mouth 1 Tablet in the morning AND 1 Tablet at noon AND 1 Tablet before bedtime. 90 Tablet 1 Vitamin D3 50 MCG (2000 UT) Oral Capsule Take by mouth 1 Capsule in the morning. 30 Capsule 0 Aspirin EC 81 MG Oral Tablet Delayed Release Take by mouth 1 Tablet in the morning. 100 Tablet 3 Allopurinol 100 MG Oral Tablet (Zyloprim) Take 1 Tablet by mouth in the morning. 90 Tablet 2 Atorvastatin Calcium 40 MG Oral Tablet (Lipitor) TAKE ONE TABLET BY MOUTH EVERY DAY 100 Tablet 3 predniSONE 5 MG Oral Tablet (Deltasone) TAKE ONE TABLET BY MOUTH EVERY DAY IN THE MORNING 100 Tablet 1 Gabapentin 600 MG Oral Tablet (Neurontin) TAKE ONE TABLET BY MOUTH THREE TIMES A DAY 270 Tablet 1 DULoxetine HCl 30 MG Oral Capsule Delayed Release Particles (Cymbalta) TAKE ONE CAPSULE BY MOUTH EVERY DAY 90 Capsule 1 Diclofenac Sodium 1 % External Gel (Voltaren) APPLY TOPICALLY 3 TIMES A DAY NEEDED. 300 g 0 Cyanocobalamin 1000 MCG/ML Injection Solution (Cyanocobalamin) INJECT 1000 MCG INTO A LARGE MUSCLE EVERY 30 DAYS 3 mL 3 Levothyroxine Sodium 88 MCG Oral Tablet (Levoxyl) TAKE ONE TABLET BY MOUTH SIX DAYS PER WEEK 100 Tablet 2 amLODIPine Besylate 5 MG Oral Tablet (Norvasc) TAKE ONE TABLET BY MOUTH EVERY DAY IN THE MORNING 100 Tablet 3 Pantoprazole Sodium 20 MG Oral Tablet Delayed Release (Protonix) Take 1 Tablet by mouth in the morning. 100 Tablet 3 Wheelchair Cushion Use with wheelchair to help patient rise from a seated position. (Patient not taking: Reported on 02/17/2023) 1 Each 0 No current facility-administered medications for this visit. Review of patient's allergies indicates: No Known Allergies Objective: BP 122/66 | Pulse 68 | Temp 37.1 C (98.7 F) | Wt 57.2 kg (126 lb) | SpO2 97% | BMI 23.81 kg/m| BSA 1.57 m General: alert, healthy, no distress, well nourished, and well developed, stands during the visit as she has trouble rising from a seated position Neck: supple, no adenopathy, thyroid normal size, non-tender, without nodularity Heart: regular rate & rhythm and no murmur Lungs: chest symmetric with normal AP diameter, no chest deformities noted, normal respiratory rateand rhythm, lungs clear to auscultation Abdomen: abdomen soft and non-tender Extremities: no joint deformities, effusion, or inflammation, mild edema, lower legs are cool to the touch Neuro Exam: alert & oriented x 3 with fluent speech, no focal motor/sensory deficits, ambulateswith a walker Skin: skin color, texture, turgor are normal, no rashes or significant lesions ASSESSMENT/PLAN: Malaise and fatigue (Primary) - TSH; Future; Expected date: 02/17/2023 - CBC WITH WBC DIFFERENTIAL AND ANEMIA REFLEX WORKUP; Future; Expected date: 02/17/2023 - 25-HYDROXY VITAMIN D; Future; Expected date: 02/17/2023 - BASIC METABOLIC PANEL; Future; Expected date: 02/17/2023 - FERRITIN; Future; Expected date: 02/17/2023 - IRON SCREEN, INCLUDING TIBC; Future; Expected date: 02/17/2023 Internal hemorrhoids - Hydrocortisone (Perianal) 2.5 % External Cream; Administer into the rectum 2 times a day. For up to 14 days. 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 - Diclofenac Sodium 1 % External Gel (Voltaren); Apply topically to affected area 2 times a day. Acquired hypothyroidism - update labs and adjust levothyroxine as needed. Primary osteoarthritis of both knees - gets injections by Dr. Logan. Essential (primary) hypertension S/P angioplasty with stent Follow-up: Return in about 6 months (around 08/18/2023). | Check-out note: Labs today Elizabeth Vanegas DO documented in this encounter Plan of Treatment Upcoming Encounters Date Type Department Care Team (Late st Contact Info) Description 03/26/2023 10:30 AM EST Office Visit Orthopaedics [address] [phone] Koffi Logan MD [address] [facility] [place] [address] 06/04/2023 10:45 AM EST Office Visit Orthopaedic[address] [phone] Koffi Marroquin MD [address] [place] [address] 09/29/2023 10:30 AM EDT Office Visit Family Medicine [address] [place] [phone] [address] Vaneg[address] [place] [address] 09/29/2023 11:30 AM EDT Office Visit Cardiology [address] [place] [address] Elton Smith PA-C [address] [place] [address] Pending Results Name Type Priority Associated Diagnoses Date /Time TSH Lab Routine Malaise and fatigue 02/17/2023 3:34 PM EST CBC WITH WBC DIFFERENTIAL AND ANEMIA REFLEX WORKUP Lab Routine Malaise and fatigue 02/17/2023 3:34 PM EST 25-HYDROXY VITAMIN D Lab Routine Malaise and fatigue 02/17/2023 3:34 PM EST BASIC METABOLIC PANEL Lab Routine Malaise and fatigue 02/17/2023 3:34 PM EST FERRITIN Lab Routine Malaise and fatigue 02/17/2023 3:34 PM EST IRON SCREEN, INCLUDING TIBC Lab Routine Malaise and fatigue 02/17/2023 3:34 PM EST Scheduled Orders Name Type Priority Associated Diagnoses Orde r Schedule TSH Lab Routine Malaise and fatigue Expected: 02/17/2023 (Approximate), Expires: 02/17/2024 CBC WITH WBC DIFFERENTIAL AND ANEMIA REFLEX WORKUP Lab Routine Malaise and fatigue Expected: 02/17/2023 (Approximate), Expires: 02/18/2024 25-HYDROXY VITAMIN D Lab Routine Malaise and fatigue Expected: 02/17/2023 (Approximate), Expires: 02/17/2024 BASIC METABOLIC PANEL Lab Routine Malaise and fatigue Expected: 02/17/2023 (Approximate), Expires: 02/17/2024 FERRITIN Lab Routine Malaise and fatigue Expected: 02/17/2023 (Approximate), Expires: 02/17/2024 IRON SCREEN, INCLUDING TIBC Lab Routine Malaise and fatigue Expected: 02/17/2023 (Approximate), Expires: 02/17/2024 Health Maintenance Due Date Last Done Comments Depression Screening 08/01/2021 08/01/2020 COVID-19 Vaccine ( season) 2022 02/04/2022, 07/23/2021, 07/10/2020, Additional history exists DXA Scan 07/31/2023 07/30/2016, 08/2005, 04/20/2003, Additional history exists GFR 08/06/2023 08/05/2022, 07/2021, 01/24/2022, Additional history exists TSH 08/06/2023 08/05/2022, 07/12, 01/08/2021, Additional history exists Albumin/Creatinine Ratio 11/06/2025 11/06/2022, [...] as of this encounter Visit Diagnoses Diagnosis Malaise and fatigue- Primary Other malaise and fatigue Internal hemorrhoids Internal hemorrhoids without mention of complication Inclusion body myositis (IBM) Inclusion body myositis Acquired hypothyroidism Unspecified hypothyroidism Primary osteoarthritis of both knees Primary localized osteoarthrosis, lower leg Essential (primary) hypertension Unspecified essential hypertension S/P angioplasty with stent Postsurgical percutaneous transluminal coronary angioplasty status documented in this encounter Care Teams Construction Person Relationship Specialty Start Date End Date Elizabeth Vanegas DO [address] [place] [address] [place] [phone] PCP - General Internal Medicine 08/05/22 documented as of this encounter
--- OUTSIDE RECORDS SUMMARY | 2023-04-28 13:16 | External Medical Summary ---
Author Name Unknown Address Unknown Organization K01:[facility] [place] [address] [place] [address] Laboratory Report Ordering Provider Test Date Status VIK BOWDEN 02/17/2023 15:34:19 Final Observation Date Value Abnormality Reference (Units ) Status BUN 02/17/2023 15:34:19 29 Above high normal 6-20 (mg/dL) Final Creatinine 02/17/2023 15:34:19 0.9 0.5-1.0 (mg/dL) Final Glomerular filtration rate/1.73 sq M.predicted [Volume Rate/Area] in Serum, Plasma or Blood by Creatinine-based formula (CKD-EPI) 02/17/2023 15:34:19 65 >=60 (mL/min) Final eGFR is calculated based on the CKD-EPI 2020 equation SODIUM 02/17/2023 15:34:19 140 135-146 (m mol/L) Final Potassium 02/17/2023 15:34:19 5.5 Above high normal 3. 5-5.1 (mmol/L) Final Cl 02/17/2023 15:34:19 106 98-107 (mm ol/L) Final CO2 02/17/2023 15:34:19 20 Below low normal 22- 32 (mmol/L) Final Anion gap 02/17/2023 15:34:19 14 7-15 (mmol /L) Final Glucose 02/17/2023 15:34:19 129 Above high normal 70 -120 (mg/dL) Final Calcium 02/17/2023 15:34:19 9.9 8.4-10.2 ( mg/dL) Final Performing Location [facility] [place] [address] [place] [address]
--- OUTSIDE RECORDS SUMMARY | 2023-04-28 13:16 | External Medical Summary | Summary of Care ---
Author Name Unknown Organization [facility] Address [address] [facility] [place] [address] Phone [phone] Care Team Providers Care Compressed Gas Tester Name Role Phone Elizabeth Vanegas DO Primary Care Provider [phone] Reason for Visit * Reason Comments Outpatient Testing Encounter Details Date Type Department Care Team (Late st Contact Info) Description 02/17/2023 3:40 PM EST Laboratory Laboratory [address] [place] [phone] [address] [place] [address] Malaise and fatigue Allergies No known active allergiesdocumented as of [...] DAYS 3 mL 3 05/08/2022 4 Active Levothyroxine Sodium 88 MCG Oral Tablet (Levoxyl)Indications :Acquired hypothyroidism TAKE ONE TABLET BY MOUTH SIX DAYS PER WEEK 100 Tablet 2 04/08/2022 3 Active amLODIPine Besylate 5 MG Oral Tablet [...] up to 14 days. 28 g 1 02/17/2023 Active Diclofenac Sodium 1 % External Gel (Voltaren)Indication s:Inclusion body myositis (IBM) Apply topically to affected area 2 times a day. 300 g 0 02/17/2023 Active documented as of this encounter (statuses [...] 70 10/11 Coronary artery disease invo lving [place] coronary artery of [place] heart without angina pectoris 08/10/2018 S/P angioplasty with stent 08/10/2018 History of [place] (myocardial infarction) 08/10/2018 Idiopathic chronic gout of [...] back p ain without sciatica 12/19/2016 10/22/2017 [facility] current use of systemic steroids 06/06/2016 03/24/2018 [...] mRNA, LNP-s, No Pre serve, 2-Dose Series (Dynamic Yield) 07/10/2020,06/19/2020 COVID-19, LNP-s, No Preserve , Marlon-sucrose, Ages 12+ (Pfizer) 07/23/2021 Covid-19, Mrna, Lnp-s, Pf, B ivalent, 30 Mcg, IM, 12 yrs and above (Dynamic Yield) 02/04/2022 Pneumococcal Conjugate Vacc, 13 Valent (Prevnar) [...] No 10/19/2014 documented as of this encounter Plan of Treatment Upcoming Encounters Date Type Department Care Team (Late st Contact Info) Description 03/26/2023 10:30 AM EST Office Visit Orthopaedics [address] [phone] Koffi Logan MD [address] [place] [address] 06/04/2023 10:45 AM EST Office Visit Orthopaedics [address] [phone] Koffi Logan MD [address] [place] [address] 09/29/2023 10:30 AM EDT Office Visit Family Medicine [address] [phone] [place] [address] [place] [address] 09/29/2023 11:30 AM EDT Office Visit Cardiology [address] [place] [address] Elton Smith PA-C [address] [place] [address] Pending Results Name Type Priority Associated Diagnoses [...] Malaise and fatigue 02/17/2023 3:34 PM EST ANEMIA CBC Lab Routine Malaise and fatigue 02/17/2023 3:34 PM EST DIFFERENTIAL, AUTOMATED Lab Routine Malaise and fatigue 02/17/2023 3:34 PM EST ANEMIA REFLEX CHEMISTRY HOLD Lab Routine Malaise and fatigue 02/17/2023 3:34 PM EST Health Maintenance Due Date Last Done Comments [...] this encounter Visit Diagnoses Diagnosis Malaise and fatigue Other malaise and fatigue documented in this encounter Care Teams Compressed Gas Tester Relationship Specialty Start Date End Date Elizabeth Vanegas DO [address] [place] [address] [place] [phone] PCP - General Internal Medicine 08/05/22 documented as of this encounter
--- OUTSIDE RECORDS SUMMARY | 2023-04-28 13:16 | External Medical Summary | Summary of Care ---
Author Name Unknown Organization [facility] Address [address] [facility] [place] [address] Phone [phone] Care Team Providers Care Graphics Editor Name Role Phone Elizabeth Vanegas DO Primary Care Provider + [phone] Reason for Visit * Reason Onset Date Comments Home Health 03/12/2023 Encounter Details Date Type Department Care Team (Late st Contact Info) Description 03/12/2023 Telephone Family Medicine [address] [place] [address] Elizabeth Vanegas DO [address] [place] [address] [place] [address] Home Health Allergies No known active allergiesdocumented as of this encounter (statuses as of 03/12/2023) Medications Medication Sig Dispensed Refills Start Date [...] PER WEEK 100 Tablet 2 02/23/2023 Active documented as of this encounter (statuses as of 03/12/2023) Active Problems Problem Noted Date Diagnosed Date [...] 69 10/11 Coronary artery disease invo lving [place] coronary artery of [place] heart without angina pectoris 08/10/2018 S/P angioplasty with stent 08/10/2018 History of [place] (myocardial infarction) 08/10/2018 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 Mixed dyslipidemia 05/16/2005 7 OSTEOARTHROS NOS-L-LEG 04/18 documented as of this encounter (statuses as of 03/12/2023) Immunizations Name Administration Dates Next Due COVID-19 mRNA, LNP-s, No Pre serve, 2-Dose Series (23andMe) 07/10/2020,06/19/2020 COVID-19, LNP-s, No Preserve , Marlon-sucrose, Ages 12+ (Pfizer) 07/23/2021 Covid-19, Mrna, Lnp-s, Pf, B ivalent, 30 Mcg, IM, 12 yrs and above (23andMe) 02/04/2022 Pneumococcal Conjugate Vacc, 13 Valent (Prevnar) [...] encounter Miscellaneous Notes * Telephone Encounter - Nory Hines LPN - 03/12/2023 2:12 PM EST Sandra calling from [facility] requesting signed office note from 12/25/2021 for insurance purposes. Faxed to both numbers with success confirmation. documented in this encounter Plan of Treatment Upcoming Encounters Date Type Department Care Team (Late st Contact Info) Description 03/26/2023 10:30 AM EST Office Visit Orthopaedics [address] [phone] Koffi Logan MD [address] [place] [address] 06/04/2023 10:45 AM EST Office Visit Orthopaedics [address] [address] Koffi Logan MD [address] [place] [address] 09/29/2023 10:30 AM EDT Office Visit Family Medicine [address] [address] [address] [place] [address] 09/29/2023 11:30 AM EDT Office Visit Cardiology [address] [place] [address] Elton Smith PA-C [address] [place] [address] Health Maintenance Due Date Last Done Comments Depression Screening 08/01/2021 08/01/2020 COVID-19 Vaccine ( season) 2022 02/04/2022, 07/23/2021, 07/10/2020, Additional history exists DXA Scan 07/31/2023 07/30/2016, 02/08/2005, 04/20/2003, Additional history exists GFR 02/18/2024 02/17/2023, [...] filedocumented as of this encounter Care Teams Graphics Editor Relationship Specialty Start Date End Date Elizabeth Vanegas DO [address] [place] [address] [place] [address] PCP - General Internal Medicine 08/05/22 documented as of this encounter
--- OUTSIDE RECORDS SUMMARY | 2023-04-28 13:16 | External Medical Summary | Summary of Care ---
Author Name Unknown Organization [facility] Address [address] [facility] [place] [address] Phone [phone] Care Team Providers Care Clinical Reimbursement Specialist Name Role Phone Elizabeth Vanegas DO Primary Care Provider + [phone] Reason for Visit * Reason Onset Date Comments Test Results 03/02/2023 Encounter Details Date Type Department Care Team (Late st Contact Info) Description 03/02/2023 Telephone Family Medicine [address] [place] [address] Elizabeth Vanegas DO [address] [place] [address] [place] [address] Test Results Allergies No known active allergiesdocumented as of this encounter (statuses as of 03/04/2023) Medications Medication Sig Dispensed Refills Start Date [...] as of this encounter (statuses as of 03/04/2023) Active Problems Problem Noted Date Diagnosed Date [...] S/P angioplasty with stent 08/10/2018 History of [place] (myocardial infarction) 08/10/2018 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 Mixed dyslipidemia 05/16/2005 7 OSTEOARTHROS NOS-L-LEG 04/18 documented as of this encounter (statuses as of 03/04/2023) Immunizations Name Administration Dates Next Due COVID-19 mRNA, LNP-s, No Pre serve, 2-Dose Series ([employer]Mu) 07/10/2020,06/19/2020 COVID-19, LNP-s, No Preserve , Marlon-sucrose, Ages 12+ (Pfizer) 07/23/2021 Covid-19, Mrna, Lnp-s, Pf, B ivalent, 30 Mcg, IM, 12 yrs and above (Re.Mu) 02/04/2022 Pneumococcal Conjugate Vacc, 13 Valent (Prevnar) [...] encounter Miscellaneous Notes * Telephone Encounter - Carolyn Richardson LPN - 03/04/2023 11:04 AM EST Labs mailed. I called Yulisa, I was not able to reach pt. Yulisa states she thinks she's okay but will be with her all day tomorrow and will schedule an appt if she thinks she needs one. Yulisa said the last time she had covid was a while ago when she was hospitalized. * Telephone Encounter - Elizabeth Vanegas DO - 03/03/2023 9:59 AM EST Labs printed to be mailed to patient - in the nurse basket near my desk. When did she have COVID? Recently or awhile ago? Her labs last week suggested she might be fighting something off. If the COVID infection was in the past, she might have a new infection and may need to be seen. * Telephone Encounter - Maki Franco LPN - 03/03/2023 8:47 AM EST Feels fatigued, has a sore throat and occasionally loses her voice like something is blocking her throat like phlegm. Fatigue and losing her voice has been occurring since previously having COVID. Sore throat comes and goes. Is not taking any OTC medication. Will cut back on eating a bananas. Please advise. * Telephone Encounter - Bhakti Hogan OSA - 03/03/2023 8:42 AM EST Reason for patient's call: test result Caller was transferred to [facility] at the nurse line. * Telephone Encounter - Ariana Pandey OSA - 03/02/2023 9:01 AM EST Pt called in for test results, labs 02-17-23, pt read results, only consuming one banana a day, reports fatigue and a cough, requesting lab results be mailed to home address. documented in this encounter Plan of Treatment Upcoming Encounters Date Type Department Care Team (Late st Contact Info) Description 03/26/2023 10:30 AM EST Office Visit Orthopaedics [address] [place] [address] Koffi Logan MD [address] [place] [address] 06/04/2023 10:45 AM EST Office [address] [address] Koffi Logan MD [address] [place] [address] 09/29/2023 10:30 AM EDT Office Visit Family Medicine [address] [address] [address] [place] [address] 09/29/2023 11:30 AM EDT Office Visit Cardiology [address] [place] [address] Elton Smith PA-C [address] [place] [address] Health Maintenance Due Date Last Done Comments Depression Screening 08/01/2021 08/01/2020 COVID-19 Vaccine ( season) 2022 02/04/2022, 07/23/2021, 07/10/2020, Additional history exists DXA Scan 07/31/2023 07/30/2016, 020 08/2005, 04/20/2003, Additional history exists GFR 02/18/2024 02/17/2023, 2 08/2022, 02/14/2022, Additional history exists TSH 02/18/2024 02/17/2023, [...] filedocumented as of this encounter Care Teams Clinical Reimbursement Specialist Relationship Specialty Start Date End Date Elizabeth Vanegas DO [address] [place] [address] [place] [id number] PCP - General Internal Medicine 08/05/22 documented as of this encounter
--- OUTSIDE RECORDS SUMMARY | 2023-04-28 13:16 | External Medical Summary ---
Author Name Unknown Address Unknown Organization K01:[facility] – [place] - [address] [place] [address] [place] [address] Laboratory Report Ordering Provider Test Date Status DENNISECHERY 02/17/2023 15:34:19 Final Observation Date Value Abnormality Reference (Units ) Status TSH 02/17/2023 15:34:19 0.92 0.27-4.20 (uIU/mL) Final Performing Location LABORATORY [facility] - [address] [place] [address]
--- OUTSIDE RECORDS SUMMARY | 2023-04-28 13:16 | External Medical Summary ---
Author Name Unknown Address Unknown Organization K01:[facility] [place] [address] [place] [address] Laboratory Report Ordering Provider Test Date Status VIK BOWDEN 02/17/2023 15:34:19 Final Observation Date Value Abnormality Reference (Units ) Status Ferritin 02/17/2023 15:34:19 717 Above high normal 13 -150 (ng/mL) Final Postmenopausal women have hi gher ferritin levels than pre-menopausal women. The above reference interval is based on pre-menopausal women. Performing Location [facility] [place] - [address] [place] [address]
--- OUTSIDE RECORDS SUMMARY | 2023-04-28 13:16 | External Medical Summary | Summary of Care ---
Author Name Unknown Organization [facility] Address [address] [facility] [place] [address] Phone [phone] Care Team Providers Care Statistical Financial Analyst Name Role Phone Dennise Chery DO Primary Care Provider + [phone] Reason for Visit * Reason Comments Medication Refill Encounter Details Date Type Department Care Team (Late st Contact Info) Description 02/22/2023 Refill Family Medicine [address] [place] [address] Dennise Chery DO [address] [place] [address] [place] [address] Acquired hypothyroidism Allergies No known active allergiesdocumented as of this encounter (statuses as of 02/23/2023) Medications Medication Sig Dispensed Refills Start Date End Date Status vitamin b-12 (CYANOCOBALAMIN) 1000 MCG/ML injection Inject 1,000 mcg into a large muscle. 1 injection monthly 0 Active acetaminophen (TYLENOL) 500 MG Tablet Take 1 Tablet by mouth every 6 hours as needed for Pain. 0 Active nitroglycerin (NITROSTAT) 0.4 MG SUBL 0 9 Active Immune Globulin (Human) 1 GM/10ML Injection Solution (Gammagard/Gamunex- C/Gammaked) Administer intravenously Every Month . 0 Active Safety Syringe/Needle 25G X 5/8" 3 ML (Syringe/Needle (Disp)) Use as directed for vitamin B12 injections. 10 Each 0 2 Active Insulin Syringe-Needle U-100 30G X 1/2" 1 ML Use as directed for vitamin B12 injections. 10 Each 0 2 Active Metoprolol Succinate ER 25 MG Oral Tablet Extended Release 24 Hour (toPROL XL) TAKE ONE-HALF TABLET BY MOUTH DAILY 50 Tablet 3 2 Active Turmeric 500 MG Oral Capsule Take by mouth 1 Capsule in the morning. 30 Capsule 1 2 Active Ferrous Sulfate 325 (65 Fe) MG Oral Tablet (Feosol) Take by mouth 1 Tablet in the morning. 90 Tablet 1 2 Active Vitamin D3 50 MCG (2000 UT) Oral Capsule Take by mouth 1 Capsule in the morning. 30 Capsule 0 2 Active Aspirin EC 81 MG Oral Tablet Delayed Release Take by mouth 1 Tablet in the morning. 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 90 Tablet 2 3 Active Atorvastatin Calcium 40 MG Oral Tablet (Lipitor) TAKE ONE TABLET BY MOUTH EVERY DAY 100 Tablet 3 3 10/08/19 24 Active predniSONE 5 MG Oral Tablet (Deltasone) TAKE ONE TABLET BY MOUTH EVERY DAY IN THE MORNING 100 Tablet 1 3 10/02/19 24 Active Gabapentin 600 MG Oral Tablet (Neurontin) TAKE ONE TABLET BY MOUTH THREE TIMES A DAY 270 Tablet 1 3 08/15/19 24 Active DULoxetine HCl 30 MG Oral Capsule Delayed Release Particles (Cymbalta) TAKE ONE CAPSULE BY MOUTH EVERY DAY 90 Capsule 1 3 08/01/19 24 Active Cyanocobalamin 1000 MCG/ML Injection Solution (Cyanocobalamin) INJECT 1000 MCG INTO A LARGE MUSCLE EVERY 30 DAYS 3 mL 3 3 05/08/19 24 Active amLODIPine Besylate 5 MG Oral Tablet (Norvasc) TAKE ONE TABLET BY MOUTH EVERY DAY IN THE MORNING 100 Tablet 3 3 10/22/19 24 Active Pantoprazole Sodium 20 MG Oral Tablet Delayed Release (Protonix)Indicatio ns:Gastroesophageal reflux disease without esophagitis Take 1 Tablet by mouth in the morning. 100 Tablet 3 3 Active Hydrocortisone (Perianal) 2.5 % External CreamIndications:In ternal hemorrhoids Administer into the rectum 2 times a day. For up to 14 days. 30 g 1 3 Active Diclofenac Sodium 1 % External Gel (Voltaren)Indicatio ns:Inclusion body myositis (IBM) Apply topically to affected area 2 times a day. 300 g 0 3 Active Levothyroxine Sodium 88 MCG Oral Tablet (Levoxyl)Indication s:Acquired hypothyroidism TAKE ONE TABLET BY MOUTH SIX DAYS PER WEEK 100 Tablet 2 3 02/23/20 24 Active Levothyroxine Sodium 88 MCG Oral Tablet (Levoxyl)Indication s:Acquired hypothyroidism TAKE ONE TABLET BY MOUTH SIX DAYS PER WEEK 100 Tablet 2 2 02/23/20 23 Discontinu ed(Refill) documented as of this encounter (statuses as of 02/23/2023) Active Problems Problem Noted Date Diagnosed Date [...] 70 10/11 Coronary artery disease invo lving [place] coronary artery of [place] heart without angina pectoris 08/10/2018 S/P angioplasty with stent 08/10/2018 History of [place] (myocardial infarction) 08/10/2018 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 Mixed dyslipidemia 05/16/2005 7 OSTEOARTHROS NOS-L-LEG 04/18 documented as of this encounter (statuses as of 02/23/2023) Immunizations Name Administration Dates Next Due COVID-19 mRNA, LNP-s, No Pre serve, 2-Dose Series ([employer]) 07/10/2020,06/19/2020 COVID-19, LNP-s, No Preserve , Marlon-sucrose, [...] encounter Miscellaneous Notes * Telephone Encounter - Hank Burden [facility] - 02/23/2023 2:31 PM EST Signed Prescriptions: Disp Refills Levothyroxine Sodium 88 MCG Oral Tablet (L*100 Ta*2 Sig: TAKE ONE TABLET BY MOUTH SIX DAYS PER WEEKAuthorizing Provider: DENNISE CHERY User: HANK BURDEN documented in this encounter Plan of Treatment Upcoming Encounters Date Type Department Care Team (Late st Contact Info) Description 03/26/2023 10:30 AM EST Office Visit Orthopaedics [address] [phone] Koffi Logan MD [address] [place] [address] 06/04/2023 10:45 AM EST Office Visit Orthopaedics [address] [address] Koffi Logan MD [address] [place] [address] 09/29/2023 10:30 AM EDT Office Visit Family Medicine [address] [address] [place] [address] 09/29/2023 11:30 AM EDT Office Visit Cardiology [address] [place] [address] Elton Smith PA-C [address] [place] [address] Health Maintenance Due Date Last Done Comments Depression Screening 08/01/2021 08/01/2020 COVID-19 Vaccine (2022- season) 2022 02/04/2022, 07/23/2021, 07/10/2020, Additional history exists DXA Scan 07/31/2023 07/30/2016, /08/2005, 04/20/2003, Additional history exists GFR 02/18/2024 02/17/2023, [...] as of this encounter Visit Diagnoses Diagnosis Acquired hypothyroidism Unspecified hypothyroidism documented in this encounter Care Teams Statistical Financial Analyst Relationship Specialty Start Date End Date Dennise Chery DO [address] [place] [address] [place] [address] PCP - General Internal Medicine 08/05/22 documented as of this encounter
--- OUTSIDE RECORDS SUMMARY | 2023-04-28 13:16 | External Medical Summary | Summary of Care ---
Author Name Unknown Organization [facility] Address [address] [place] [address] Phone [phone] Care Team Providers Care Stock Layer Name Role Phone VanegasElizabeth chavez Primary Care Provider [phone] Encounter Details Date Type Department Care Team (Late st Contact Info) Description 03/24/2023 Documentation Home Infusion, [place] [address] [place] [address] Infusion, Nurse [place] [address] [place] [address] Allergies No known active allergiesdocumented as of this encounter (statuses as of 03/24/2023) Medications Medication Sig Dispensed Refills Start Date [...] as of this encounter (statuses as of 03/24/2023) Active Problems Problem Noted Date Diagnosed Date [...] 69 10/11 Coronary artery disease invo lving [place] coronary artery of [place] heart without angina pectoris 08/10/2018 S/P angioplasty with stent 08/10/2018 History of [place] (myocardial infarction) 08/10/2018 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 12/19/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 documented as of this encounter (statuses as of 03/24/2023) Resolved Problems Problem Noted Date Diagnosed Date [...] as of this encounter (statuses as of 03/24/2023) Immunizations Name Administration Dates Next Due COVID-19 mRNA, LNP-s, No Pre serve, 2-Dose Series (Pfizer) 07/10/2020,06/19/2020 COVID-19, LNP-s, No Preserve , Marlon-sucrose, [...] Progress Notes * Tomás Long RN - 03/24/2023 12:28 PM 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) Medication Administered: Gammagard (IVIG) Dose: 20 grams Dosing Interval: 4 weeks Date of Infusion: 03/24/23 Patient Tolerated Therapy: Yes Next Scheduled Infusion Date: 04/20/23 Next Labs Due: (as ordered by provider) Number of Refills Remaining?: 10 Treatment completed as ordered: Yes documented in this encounter Plan of Treatment Upcoming Encounters Date Type Department Care Team (Late st Contact Info) Description 03/26/2023 10:30 AM EST Office Visit Orthopaedics [address] [phone] Koffi Logan MD [address] [place] [address] 06/04/2023 10:45 AM EST Office Visit Orthopaedics [address] [address] Koffi Logan MD [address] [place] [address] 09/29/2023 10:30 AM EDT Office Visit Family Medicine [address] [address] [address] [place] [address] 09/29/2023 11:30 AM EDT Office Visit Cardiology [address] [place] [address] Elton Smith PA-C [address] [place] [address] Health Maintenance Due Date Last Done Comments Depression Screening 08/01/2021 08/01/2020 COVID-19 Vaccine ( season) 2022 02/04/2022, 07/23/2021, 07/10/2020, Additional history exists DXA Scan 07/31/2023 07/30/2016, 0208/2005, 04/20/2003, Additional history exists GFR 02/18/2024 02/17/2023, [...] filedocumented as of this encounter Care Teams Stock Layer Relationship Specialty Start Date End Date Elizabeth Vanegas DO [address] [place] [address] [place] [address] PCP - General Internal Medicine 08/05/22 documented as of this encounter
--- OUTSIDE RECORDS SUMMARY | 2023-04-28 13:16 | External Medical Summary | Summary of Care ---
Author Name Unknown Organization [facility] Address [address] [place] [address] Phone [phone] Care Team Providers Care Cooking Appliance Repair Technician Name Role Phone VanegasElizabeth chavez Primary Care Provider [phone] Encounter Details Date Type Department Care Team (Late st Contact Info) Description 02/24/2023 Documentation Home Infusion, [place] [address] [place] [address] Infusion, Nurse [place] [address] [place] [address] Allergies No known active allergiesdocumented as of this encounter (statuses as of 02/24/2023) Medications Medication Sig Dispensed Refills Start Date [...] as of this encounter (statuses as of 02/24/2023) Active Problems Problem Noted Date Diagnosed Date [...] 69 10/11 Coronary artery disease invo lving [place] coronary artery of [place] heart without angina pectoris 08/10/2018 S/P angioplasty with stent 08/10/2018 History of [place] (myocardial infarction) 08/10/2018 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) Medication Administered: Gammagard (IVIG) Dose: 20 grams Dosing Interval: 4 weeks Date of Infusion: 02/24/23 Patient Tolerated Therapy: Yes Next Scheduled Infusion Date: 03/24/23 Next Labs Due: (as ordered by provider) Number of Refills Remaining?: 11 Treatment completed as ordered: Yes documented in this encounter Plan of Treatment Upcoming Encounters Date Type Department Care Team (Late st Contact Info) Description 03/26/2023 10:30 AM EST Office Visit Orthopaedics [address] [phone] Koffi Logan MD [address] [place] [address] 06/04/2023 10:45 AM EST Office Visit Orthopaedics [address] [address] Koffi Logan MD [address] [place] [address] 09/29/2023 10:30 AM EDT Office Visit Family Medicine [address] [address] [address] [place] [address] 09/29/2023 11:30 AM EDT Office Visit Cardiology [address] [place] [address] Elton Smith PA-C [address] [place] [address] Health Maintenance Due Date Last Done Comments [...] filedocumented as of this encounter Care Teams Cooking Appliance Repair Technician Relationship Specialty Start Date End Date Elizabeth Vanegas DO [address] [place] [address] [place] [address] PCP - General Internal Medicine 08/05/22 documented as of this encounter
--- OUTSIDE RECORDS SUMMARY | 2023-04-28 13:16 | External Medical Summary | Summary of Care ---
Author Name Unknown Organization [facility] Address [address] [facility] [place] [address] Phone [phone] Care Team Providers Care Submarine Advisory Team Watch Officer Name Role Phone Elizabeth Vanegas Primary Care Provider [phone] Reason for Visit * Reason Onset Date Comments Follow Up 6 month follow u p. Minor chest pain on occasion- does not last long and can be with activity or at rest. SOB no worse then prior with exertion. Denies palpitations, dizziness and edema. Medication Administration 02/17/2023 Flu an d/or Pneumo Inj Encounter Details Date Type Department Care Team (Late st Contact Info) Description 02/17/2023 1:30 PM EST Office Visit Cardiology [address] [place] [address] Elton Smith, PAGale [address] [place] [address] Coronary artery disease involving [place] coronary artery of [place] heart without angina pectoris*; Need for prophylactic vaccination and inoculation against influenza; Hypertensive heart disease without heart failure; History of [place] (myocardial infarction); Dyslipidemia, goal LDL below 70; Diastolic dysfunction; Atypical chest pain Allergies No known active allergiesdocumented as of [...] nitroglycerin (NITROSTAT) 0.4 MG SUBL 0 10/20/19 Active Immune Globulin (Human) 1 GM/10ML Injection Solution (Gammagard/Gamunex -C/Gammaked) Administer intravenously Every Month . 0 Active Safety Syringe/Needle 25G X 5/8" 3 ML (Syringe/Needle (Disp)) Use as directed for vitamin B12 injections. 10 Each 0 08/08/19 Active Insulin Syringe-Needle U-100 30G X 1/2" [...] in the morning. 100 Tablet 3 01/30/20 22 Active Allopurinol 100 MG Oral Tablet (Zyloprim)Indicati [...] morning. 100 Tablet 3 01/14/20 23 Active Diclofenac Sodium 1 % External Gel (Voltaren) Apply to topically as directed 0 023 Discontinued DULoxetine HCl 60 MG Oral Capsule Delayed Release Particles (Cymbalta) Take by mouth 1 Capsule before bedtime. 30 Capsule 0 01/30/20 22 023 Discontinued(Me dication/Dose Changed) Gabapentin 600 MG Oral Tablet (Neurontin) Take [...] 70 10/11 Coronary artery disease invo lving [place] coronary artery of [place] heart without angina pectoris 08/10/2018 S/P angioplasty with stent 08/10/2018 History of [place] (myocardial infarction) 08/10/2018 Idiopathic chronic gout of [...] back p ain without sciatica 12/19/2016 10/22/2017 intermediate current use of systemic steroids 06/06/2016 03/24/2018 [...] mRNA, LNP-s, No Pre serve, 2-Dose Series ([employer]) 07/10/2020,06/19/2020 COVID-19, LNP-s, No Preserve , Marlon-sucrose, Ages 12+ ([employer]) 07/23/2021 Covid-19, Mrna, Lnp-s, Pf, B ivalent, [...] Sign Reading Time Taken Comments Blood Pressure 120/66 02/17/2023 1:24 PM EST Pulse 64 02/17/2023 1:24 PM EST Temperature - - Respiratory Rate 16 02/17/2023 1:24 PM EST Oxygen Saturation - - Inhaled Oxygen Concentration - - Weight 57.6 kg (126 lb 14.4 oz) 02/17/2023 1:24 PM EST Height - - Body Mass Index 23.98 09/04/2022 2:09 PM EDT documented in this [...] No 10/19/2014 documented as of this encounter Patient Instructions * Patient Instructions* Sidney Adames LPN - 02/17/2023 1:20 PM EST ~~PATIENT INSTRUCTIONS FOR FLU SHOT~~ Possible side effects of influenza vaccine, (flu shot), are usually mild and include: 1. Soreness or redness at injection site 2. Low grade fever 3. Body aches You may use Tylenol/Acetaminophen as needed for these symptoms. LET YOUR DOCTOR KNOW IMMEDIATELY IF YOU HAVE DIFFICULTY BREATHING OR SWALLOWING, EXPERIENCE ITCHINGOF FEET OR HANDS, HAVE SWELLING OF EYES, FACE OR INSIDE OF NOSE. documented in this encounter Progress Notes * Elton Smith PA-C - 02/17/2023 1:23 PM EST History of Present Illness: Diana Chandler is a 82 year old female who returns today for cardiology follow-up evaluation. Patient returns today feeling relatively well. On questioning, the patient describes minor chest pain that lasts for a second, occurring without rhyme or reason, not associatedwith activity. She notes that it is so minor that she should not have even mentioned did. No changein exercise tolerance. Stable exertional dyspnea. No resting dyspnea. No palpitations. No fluid retention. No dizziness, near syncope, or syncope. 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 Actinic keratosis L57.0 Essential (primary) hypertension I10 Gastro-esophageal reflux disease without esophagitis K21.9 Primary osteoarthritis of both knees M17.0 Acquired hypothyroidism E03.9 Diastolic dysfunction I51.89 Hypertensive heart disease without heart failure I11.9 Hiatal hernia K44.9 Dysphagia R13.10 At risk for malnutrition Z91.89 Cardiomyopathy (HCC) I42.9 Past Medical History: Diagnosis Date Aspiration pneumonia of both lower lobes due to gastric secretions (HCC) 01/24/2022 COVID-19 12/02/2021 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 06/06/2016 Loss of weight 08/10/2018 Osteoarthrosis, unspecified whether generalized or localized, lower leg knees Past Surgical History: Procedure Laterality Date MUSCLE BIOPSY, DEEP Right 08/18/2014 BIOPSY MUSCLE DEEP performed by Carlos Eduardo Berkowitz MD at OR [facility] REMOVAL OF OVARY/OVIDUCT(S) 1994 REMOVAL OF OVIDUCT 1994 SIGMOIDOSCOPY, DIAGNOSTIC 10/18/2018 diverticulosis, normal bx / INPT [facility] TOTAL HYSTERECTOMY 1994 Family History Problem Relation Age of Onset Heart Disorder Mother mi age 88 Lung Disorder Father emphysema Social History Socioeconomic History Marital status: Spouse name: Alison Number of children: 2 Years of education: Not on file Highest education level: Not on file Occupational History 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 Review of patient's allergies indicates: No Known Allergies Current Outpatient Medications Medication Sig Dispense Refill vitamin b-12 (CYANOCOBALAMIN) 1000 MCG/ML injection Inject 1,000 mcg into a large muscle. 1 injection monthly acetaminophen (TYLENOL) 500 MG Tablet Take 1 Tablet by mouth every 6 hours as needed for Pain. Diclofenac Sodium 1 % External Gel (Voltaren) [...] Tablet in the morning. 100 Tablet 3 Wheelchair Cushion Use with wheelchair to help patient rise from a seated position. 1 Each 0 Allopurinol 100 MG Oral Tablet (Zyloprim) Take [...] mouth in the morning. 100 Tablet 3 nitroglycerin (NITROSTAT) 0.4 MG SUBL (Patient not taking: Reported on 02/17/2023) No current facility-administered medications for this visit. OBJECTIVE/PHYSICAL EXAMINATION: BP 120/66 | Pulse 64 | Resp 16 | Wt 57.6 kg (126 lb 14.4 oz) | BMI 23.98 kg/m | BSA 1.57 m Patient examined in a chair General: Alert. No distress. Comfortable and cooperative Skin: No rash Eyes: PER. Conjunctiva pink, sclera clear. HENT: Normocephalic. Atraumatic. Neck: No carotid bruits. No JVD. No HJR. Heart: Irregular, with occasional ectopy, 56 bpm. Soft systolic murmur at the LLSB. Lungs: Clear to auscultation. Abdomen: +BS. Nontender. Extremities: No significant edema. No clubbing. No cyanosis Pulses: Posterior tibial=2/4. Limited neurological examination: No focal deficit. Data: Echocardiogram July 24, 2020: The left ventricular cavity size is normal. The LV wall thickness ismildly increased (concentric). The left ventricular wall motion is normal. Qualitative LV ejection Fraction = >60%. The left ventricular diastolic function is mildly abnormal (grade I). Mild mitral regurgitation is present. Compared to previous study dated 03/24/2019, there appears to be no significant change January 19, 2022 TTE interpretation summary ([facility], Dr. Richards): Technically limited. Grossly normal LV size. Mild concentric LVH. Normal LV systolic function. EF 55 to 60%. Mild to moderate mitral regurgitation. Mildly dilated left atrium. Normal right atrial size. Normal RV systolic function. EKG on August 05, 2022 personally reviewed, revealed sinus bradycardia 55 bpm with possible left atrial enlargement, premature atrial complexes, possible old anterior infarct. Diffuse ST-T wave abnormality. When compared to prior available tracings, lateral T-wave changes are less pronounced now EKG performed on February 17, 2023 personally reviewed, revealed normal sinus rhythm at 64 bpm with poor R-wave progression versus possible old anterior infarct and lateral T-wave abnormality. When compared to prior available tracings, there is no significant change. ASSESSMENT AND RECOMMENDATIONS/PLAN: Chronic atherosclerotic coronary disease. Status post acute inferior STEMI, asymptomatic, treated with drug-eluting stent to the 95% culprit lesion of the right coronary artery as well as drug-eluting stent to circumflex 70% lesion in July 2018. Stable Continue low-dose beta-laurie, aspirin, and moderate intensity statin therapy. Dyslipidemia. LDL goal less than 70 mg/dL. LDL cholesterol 68 mg/dL on August 05, 2022. Continue moderate intensity statin therapy with atorvastatin 40 mg/day. Hypertension. Blood pressure well controlled. Continue the current antihypertensive regimen as presently prescribed. Chronic inflammatory demyelinating polyneuritis. Followed at [facility] Inclusion body myositis receiving monthly IgG in fusion 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. Followed by PCP GERD. Hiatal hernia. Followed by PCP Gout. Followed by PCP Osteoarthritis of both knees. [facility]. May benefit from home PT. Routine cardiology follow-up. ER with emergencies. Elton Smith PA-C Department of Cardiology * Sidney Adames LPN - 02/17/2023 1:19 PM EST PRE - ADMINISTRATION DOCUMENTATION Are you experiencing any cold symptoms or fever? No Have you had Guillain-[place] Syndrome (an illness that causes paralysis) within the last 6 weeks? No Have you had the flu shot in the past? YES Have you ever had a reaction to the flu shot? Yue Adames LPN, 02/17/2023 1:19 PM Immunization Administration Documentation Time Out Procedure Performed: Yes Patient Identified (Ask Name/Date of ): Yes Does the patient have a fever greater than 101 degrees today? No Patient allergic to latex? No VFC Stock: No Immunization(s) verified: Yes, Immunization Name: Flu, VIS Sheet(s) given: Yes Verified Side and Site: Yes Verified Shot(s) with Parent(s)/Patient: Yes documented in this encounter Nursing Notes * Sidney Adames LPN - 02/17/2023 1:23 PM EST Patient identified by full name and date of Chief Complaint Patient presents with Follow Up 6 month follow up. Minor chest pain on occasion- does not last long and can be with activity or at rest. SOB no worse then prior with exertion. Denies palpitations, dizziness and edema. Medication Administration Flu and/or Pneumo Inj Examination Room: 3 Name: Diana Chandler Date of : (1940). Reason for Visit: 6 month follow up Interim Hospitalization(s): Denies Problems/Concerns: See chief complaint Chest Pain/SOB: See chief complaint [facility] Discussed: Yes My [facility] is a way you can talk to your provider online through e-mail. Would you like to sign up? I can activate it for you? ALREADY ACTIVE Patient was instructed to not get up on the exam table until directed and assisted by their provider; patient is to remain seated in the chair/ wheelchair/ exam table for fall prevention and safety reasons. Patient is aware to have assistance to step down off exam table with personnel. Patient voiced full comprehension of instructions. documented in this encounter Plan of Treatment Upcoming Encounters Date Type Department Care Team (Late st Contact Info) Description 03/26/2023 10:30 AM EST Office Visit Orthopaedics [address] [phone] Koffi Logan MD [address] [place] [address] 06/04/2023 10:45 AM EST Office Visit Orthopaedics [address] [phone] Koffi Logan MD [address] [place] [address] 09/29/2023 10:30 AM EDT Office Visit Family Medicine [address] [phone] Elizabeth Vanegas[address] [place] [address] 09/29/2023 11:30 AM EDT Office Visit Cardiology [address] [place] [address] Elton Smith PAJeffersonC [address] [place] [address] Health Maintenance Due Date Last Done Comments [...] Not on filedocumented as of this encounter Results * EKG (02/17/2023 1:34 PM EST) 02/17/2023 1:34 PM EST Narrative Procedure Note Ray Jacobo DO - 02/17/2023 1:34 PM EST REASON FOR STUDY: cp CONCLUSIONS: Normal sinus rhythm Possible Anterior infarct (cited on or before 05-AUG-2022) T wave abnormality, consider lateral ischemia Abnormal ECG When compared with ECG of 05-AUG-2022 15:20, Premature atrial complexes are no longer Present Ventricular Rate: 64 Atrial Rate: 64 ME Interval: 172 QRS Duration: 68 QT/QTc: 394/406 ms P-R-T [place]: 111 : 11 : 121 degrees Elton Smith PA-C EKG [employer] documented in this encounter Visit Diagnoses Diagnosis Coronary artery disease involving [place] coronary artery of [place] heart without angina pectoris- Primary Need for prophylactic vaccination and inoculation against influenza Hypertensive heart disease without heart failure Unspecified hypertensive heart disease without heart failure History of NE (myocardial infarction) Old myocardial infarction Dyslipidemia, goal LDL below 70 Other and unspecified hyperlipidemia Diastolic dysfunction Heart disease, unspecified Atypical chest pain Other chest pain History of NE (myocardial infarction) Old myocardial infarction Atypical chest pain Other chest pain documented in this encounter Care Teams Submarine Advisory Team Watch Officer Relationship Specialty Start Date End Date Elizabeth Vanegas DO [address] [place] [address] [place] [id number] PCP - General Internal Medicine 08/05/22 documented as of this encounter
--- OUTSIDE RECORDS SUMMARY | 2023-04-28 13:16 | External Medical Summary | Summary of Care ---
Author Name Unknown Organization [facility] Address [address] [facility] [place] [address] Phone [phone] Care Team Providers Care Woods Boss Name Role Phone Elizabeth Vanegas DO Primary Care Provider [phone] Reason for Visit * Reason Onset Date Comments Test Results 03/02/2023 Encounter Details Date Type Department Care Team (Late st Contact Info) Description 03/02/2023 Telephone Family Medicine [address] [place] [phone] Elizabeth Vanegas DO [address] [place] [address] [place] [address] Test Results Allergies No [...] 70 10/11 Coronary artery disease invo lving [place] coronary artery of [place] heart without angina pectoris 08/10/2018 S/P angioplasty with stent 08/10/2018 History of [place] (myocardial infarction) 08/10/2018 Idiopathic chronic gout of [...] back p ain without sciatica 12/19/2016 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 * Telephone Encounter - Carolyn Richardson LPN [...] call: test result Caller was transferred to [facility] at the nurse line. * Telephone Encounter [...] 03/26/2023 10:30 AM EST Office Visit Orthopaedics [address] [phone] Koffi Logan MD [address] [place] [address] 06/04/2023 10:45 AM EST Office Visit Orthopaedics [address] [phone] Koffi Logan MD [address] [place] [address] 09/29/2023 10:30 AM EDT Office Visit Family Medicine [address] [place] [phone] [address]eg[address] [place] [address] 09/29/2023 11:30 AM EDT Office Visit Cardiology [address] [place] [address] Elton Smith PA-C [address] [place] [address] Health Maintenance Due Date Last Done Comments [...] filedocumented as of this encounter Care Teams Woods Boss Relationship Specialty Start Date End Date Elizabeth Vanegas DO [address] [place] [address] [place] [address] PCP - General Internal Medicine 08/05/22 documented as of this encounter
--- OUTSIDE RECORDS SUMMARY | 2023-04-28 13:16 | External Medical Summary | Summary of Care ---
Author Name Unknown Organization [facility] Address [address] [facility] [place] [address] Phone [phone] Care Team Providers Care Bilingual Sales Assistant Name Role Phone VanegasElizabeth chavez Primary Care Provider [phone] Encounter Details Date Type Department Care Team (Late st Contact Info) Description 03/03/2023 Population Health External Data Unspecified Department Allergies No known active allergiesdocumented as of this encounter (statuses as of 03/03/2023) Medications Medication Sig Dispensed Refills Start Date [...] as of this encounter (statuses as of 03/03/2023) Active Problems Problem Noted Date Diagnosed Date [...] 70 10/11 Coronary artery disease invo lving [place] coronary artery of [place] heart without angina pectoris 08/10/2018 S/P angioplasty with stent 08/10/2018 History of [place] (myocardial infarction) 08/10/2018 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 12/19/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 documented as of this encounter (statuses as of 03/03/2023) Resolved Problems Problem Noted Date Diagnosed Date [...] back p ain without sciatica 12/19/2016 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 Mixed dyslipidemia 05/16/2005 7 OSTEOARTHROS NOS-L-LEG 04/18 documented as of this encounter (statuses as of 03/03/2023) Immunizations Name Administration Dates Next Due COVID-19 mRNA, LNP-s, No Pre serve, 2-Dose Series ([employer]) 07/10/2020,06/19/2020 COVID-19, LNP-s, No Preserve , Marlon-sucrose, [...] 03/26/2023 10:30 AM EST Office Visit Orthopaedics [address] [phone] Koffi Logan MD [address] [facility] [place] [address] 06/04/2023 10:45 AM EST Office Visit Orthopaedics [address] [phone] Koffi Logan MD [address] [place] [address] 09/29/2023 10:30 AM EDT Office Visit Family Medicine [address] [place] [phone] Elizabeth Vanegas[address] [place] [address] 09/29/2023 11:30 AM EDT Office Visit Cardiology [address] [place] [address] Elton Smith PA-C [address] [place] [address] Health Maintenance Due Date Last Done Comments Depression Screening 08/01/2021 08/01/2020 COVID-19 Vaccine (2022- season) 2022 02/04/2022, 07/23/2021, 07/10/2020, Additional history exists DXA Scan 07/31/2023 07/30/2016, 08/2005, 04/20/2003, Additional history exists GFR 02/18/2024 [...] filedocumented as of this encounter Care Teams Bilingual Sales Assistant Relationship Specialty Start Date End Date Elizabeth Vanegas DO [address] [place] [address] [place] [address] PCP - General Internal Medicine 08/05/22 documented as of this encounter
--- OUTSIDE RECORDS SUMMARY | 2023-04-28 13:16 | External Medical Summary ---
Author Name Unknown Address Unknown Organization K01:[facility]ORATORY [facility] - [address] [place] [address] Laboratory Report Ordering Provider Test Date Status VIK BOWDEN 02/17/2023 15:34:19 Final Deficient: <20 ng/mL
Ins ufficient: 20-29 ng/mL
Recommended/Optimum:30-50 ng/mL

Vitamin D intoxication is rare. If suspicious of Vitamin D toxicity, evaluation of serum Calcium and PTH is recommended. Observation Date Value Abnormality Reference (Units ) Status 25-OH Vitamin D total 02/17/2023 15:34:19 67 >19 (ng/mL) Final Performing Location LABORATORY [facility] - [address] [place] [address]
--- OUTSIDE RECORDS SUMMARY | 2023-04-28 13:17 | External Medical Summary | Summary of Care ---
Author Name Unknown Organization [facility] Address [address] [facility] [place] [address] Phone [phone] Care Team Providers Care Wire Preparation Worker Name Role Phone Elizabeth Vanegas DO Primary Care Provider + [phone] Reason for Visit * Reason Onset Date Comments Home Health 01/29/2023 Encounter Details Date Type Department Care Team Description 01/29/2023 Telephone Family Medicine [address] [place] [address] Elizabeth Vanegas DO [address] [place] [address] [place] [id number] Home Health Allergies No known active allergiesdocumented as of this encounter (statuses as of 01/29/2023) Medications Medication Sig Dispensed Refills Start Date End Date Status vitamin b-12 (CYANOCOBALAMIN) 1000 MCG/ML injection Inject 1,000 mcg into a large muscle. 1 injection monthly 0 Active acetaminophen (TYLENOL) 500 MG Tablet Take 1 Tablet by mouth every 6 hours as needed for Pain. 0 Active nitroglycerin (NITROSTAT) 0.4 MG SUBL 0 10/19/2018 Active Diclofenac Sodium 1 % External Gel (Voltaren) Apply to topically as directed 0 Active Immune Globulin (Human) 1 GM/10ML Injection Solution (Gammagard/Gamunex-C /Gammaked) Administer intravenously Every Month . 0 Active Safety Syringe/Needle 25G X 5/8" 3 ML (Syringe/Needle (Disp)) Use as directed for vitamin B12 injections. 10 Each 0 08/07/2021 Active Insulin Syringe-Needle U-100 30G X 1/2" 1 ML Use as directed for vitamin B12 injections. 10 Each 0 08/12/2021 Active DULoxetine HCl 60 MG Oral Capsule Delayed Release Particles (Cymbalta) Take by mouth 1 Capsule before bedtime. 30 Capsule 0 01/29/2022 Active Metoprolol Succinate ER 25 MG Oral [...] the morning. 90 Tablet 1 01/29/2022 Active Gabapentin 600 MG Oral Tablet (Neurontin) Take by mouth 1 Tablet in the morning AND 1 Tablet at noon AND 1 Tablet before bedtime. 90 Tablet 1 01/29/2022 Active Vitamin D3 50 MCG (2000 UT) Oral Capsule Take by mouth 1 Capsule in the morning. 30 Capsule 0 01/29/2022 Active Aspirin EC 81 MG Oral Tablet Delayed Release Take by mouth 1 Tablet in the morning. 100 Tablet 3 01/29/2022 Active Wheelchair CushionIndications:C hronic inflammatory demyelinating polyneuritis (HCC) Use with wheelchair to help patient rise from a seated position. 1 Each 0 06/11/2022 Active Allopurinol 100 MG Oral Tablet (Zyloprim)Indication [...] DAY 90 Capsule 1 08/01/2022 4 Active Diclofenac Sodium 1 % External Gel (Voltaren) APPLY TOPICALLY 3 TIMES A DAY NEEDED. 300 g 0 06/30/2022 4 Active Cyanocobalamin 1000 MCG/ML Injection Solution [...] the morning. 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 documented as of this encounter (statuses as of 01/29/2023) Resolved Problems Problem Noted Date Resolved Date Aspiration pneumonia of both lower lobes due to gastric secretions 01/24/2022 07/24/2022 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 08/26/2019 08/26/2019 SVT (supraventricular tachycardia) 10/22/2018 03/02/2020 Chronic systolic congestive heart failure 201808/01/2020 Protein-calorie malnutrition 08/10/201809/2018 Loss of weight 08/10/2018 02/16/2019 Skin abnormality 08/03/2018 03/02/2020 Irregular heart rate 08/03/2018 08/01/2020 Neuropathy 07/03/2017 03/02/2020 Acute right-sided low back pain without sciatica 12/19/2016 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 Mixed dyslipidemia 05/16/2005 04/18/2016 OSTEOARTHROS NOS-L-LEG 7 documented as of this encounter (statuses as of 01/29/2023) Immunizations Name Administration Dates Next Due COVID-19 mRNA, LNP-s, No Pre serve, 2-Dose Series (OnBeep) 07/10/2020,06/19/2020 COVID-19, LNP-s, No Preserve , Marlon-sucrose, Ages 12+ (Pfizer) 07/23/2021 Covid-19, Mrna, Lnp-s, Pf, B ivalent, 30 Mcg, IM, 12 yrs and above (OnBeep) 02/04/2022 Pneumococcal Conjugate Vacc, 13 Valent (Prevnar) 07/18/2016 Pneumococcal Polysaccharide PPV23 (Pneumovax) 04/11/2015,08/04/2014,05/23/2005 SEASONAL INFLUENZA, PF, 6 M & Above, IM , (FLULAVAL or FLUZONE) 01/10/2019,01/25/2018,01/23/2017 Seasonal Influenza Intranasal 02/17/2014 Seasonal Influenza Virus Vac cine, Unspecified Formulation 01/25/2018,01/23/2017 Seasonal Influenza, Quadriva lent Hd (Fluzone Hd) 02/04/2022,01/08/2021 Seasonal Influenza, Quadriva lent Hd, 65+ Yrs [...] drink = 0.6 oz pur e alcohol) Food Insecurity Answer Date Recorded Within the past 12 months, y ou worried that your food would run out before you got money to buy more. Never true 11/19/2018 Within the past 12 months, t he food you bought just didn't last and you didn't have money to get more. Never true 11/19/2018 Sex Assigned at Date Recorded Female 03/05/2020 9:[address] Job Start Date Occupation Industry Not on [...] Telephone Encounter - Nory Hines LPN - 01/29/2023 8:42 AM EDT Sandra calling from [facility] requesting face to face with patient from 12/25/2021 for insurance purposes. Faxed with success confirmation documented in this encounter Plan of Treatment Upcoming Encounters Date Type Specialty Care Team Description 02/17/2023 Office Visit Cardiology Elton Smith PA-C [address] [place] [address] 02/17/2023 Office Visit Family Medicine Elizabeth Vanegas[address] [place] [address] 03/26/2023 Office Visit Orthopedics Koffi Logan MD [address] [place] [address] 06/04/2023 Office Visit Orthopedics Koffi Logan MD [address] [place] [address] Health Maintenance Due Date Last Done Comments Depression Screening 08/01/2021 08/01/2020 COVID-19 Vaccine ( season) 2022 02/04/2022, 07/23/2021, 07/10/2020, Additional history exists Influenza Vaccine (FLU shot) (#1) 2022 02/04/2022, 01/08/2021, 01/12/2020, Additional history exists DXA Scan 07/31/2023 07/30/2016, 08/2005, 04/20/2003, Additional history exists GFR 08/06/2023 08/05/2022, 07/2021, 01/24/2022, Additional history exists TSH 08/06/2023 08/05/2022, 07/12, 01/08/2021, Additional history exists Albumin/Creatinine Ratio 11/06/2025 11/06/2022, 09/11 DTaP,Tdap,and Td Vaccines (2 - Td or Tdap) 07/30/2026 07/30/2016 Pneumococcal Vaccine: 65+ Years Completed 07/18/2016, 04/11/2015, 08/04/2014, Additional history exists Zoster Vaccines Completed 08/02/2020, 02/11, 02/27/2017 GARDASIL-HPV IMMUNIZATION SERIES Aged Out No longer eligible based on patient's age to complete this topic Hepatitis B Aged Out No longer eligi ble based on patient's age to complete this topic MENINGOCOCCAL (MENACTRA/MENVEO) Aged Out No longer eligible based on patient's age to complete this topic documented as of this encounter Medical Devices Not on filedocumented as of this encounter Care Teams Wire Preparation Worker Relationship Specialty Start Date End Date Elizabeth Vanegas, [address] [place] [address] PCP - General Internal Medicine 08/05/22 documented as of this encounter
--- OUTSIDE RECORDS SUMMARY | 2023-04-28 13:17 | External Medical Summary | Summary of Care ---
Author Name Unknown Organization [facility] Address [address] 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 1 injection monthly 0 Active acetaminophen (TYLENOL) 500 MG Tablet Take 1 Tablet by mouth every 6 hours as needed for Pain. 0 Active nitroglycerin (NITROSTAT) 0.4 MG SUBL 0 10/20/19 19 Active Diclofenac Sodium 1 % External Gel [...] B12 injections. 10 Each 0 08/13/19 Active DULoxetine HCl 60 MG Oral Capsule Delayed Release Particles (Cymbalta) Take by mouth 1 Capsule before bedtime. 30 Capsule 0 01/30/20 Active Metoprolol Succinate ER 25 MG Oral [...] the morning. 90 Tablet 1 01/30/20 Active Gabapentin 600 MG Oral Tablet (Neurontin) Take by mouth 1 Tablet in the morning AND 1 Tablet at noon AND 1 Tablet before bedtime. 90 Tablet 1 01/30/20 Active Vitamin D3 50 MCG (2000 UT) Oral Capsule Take by mouth 1 Capsule in the morning. 30 Capsule 0 01/30/20 Active Aspirin EC 81 MG Oral Tablet Delayed Release Take by mouth 1 Tablet in the morning. 100 Tablet 3 01/30/20 Active Wheelchair CushionIndications :Chronic inflammatory demyelinating polyneuritis (HCC) Use with wheelchair to help patient rise from a seated position. 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 90 Tablet 2 10/16/19 23 Active Pantoprazole Sodium 20 MG Oral Tablet Delayed Release (Protonix)Indicati ons:Gastroesophage al reflux disease without esophagitis Take by mouth 1 Tablet in the morning. 90 Tablet 3 01/30/20 22 023 Discontinued(Re fill) amLODIPine Besylate 5 MG Oral Tablet (Norvasc) Take by mouth 1 Tablet in the morning. 100 Tablet 3 01/31/20 22 022 Discontinued([place] [facility] prescription brought in as discontinued) Allopurinol 100 MG Oral Tablet (Zyloprim) TAKE ONE TABLET BY MOUTH EVERY DAY 90 Tablet 2 02/09/20 22 023 Discontinued(Re fill) Levothyroxine Sodium 88 MCG Oral Tablet (Levoxyl)Indicatio ns:Acquired hypothyroidism TAKE ONE TABLET BY MOUTH SIX DAYS PER WEEK. 100 Tablet 2 04/08/20 22 022 Discontinued([place] prescription brought in as discontinued) predniSONE 5 MG Oral Tablet (Deltasone) Take 1 Tablet by mouth in the morning. 100 Tablet 1 10/03/19 23 023 Discontinued([place] prescription brought in as discontinued) Atorvastatin Calcium 40 MG Oral Tablet (Lipitor) TAKE ONE TABLET BY MOUTH EVERY DAY 100 Tablet 3 10/09/19 23 023 Discontinued([place] prescription brought in as discontinued) documented as of this encounter (statuses as of 01/21/2023) Active Problems Problem Noted Date Cardiomyopathy 03/03/2022 [...] 70 10/22/2018 Coronary artery disease invo lving [place] coronary artery of [place] heart without angina pectoris 08/10/2018 S/P angioplasty with stent 08/10/2018 History of [place] (myocardial infarction) 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 [facility] 12/19/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 documented as of this encounter (statuses as of 01/21/2023) Resolved Problems Problem Noted Date Resolved Date Aspiration pneumonia of both lower lobes due to gastric secretions 01/24/2022 07/24/2022 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 08/26/2019 08/26/2019 SVT (supraventricular tachycardia) 10/22/2018 03/02/2020 Chronic systolic congestive heart failure 201808/01/2020 Protein-calorie malnutrition 08/10/201809/2018 Loss of weight 08/10/2018 02/16/2019 Skin abnormality 08/03/2018 03/02/2020 Irregular heart rate 08/03/2018 08/01/2020 Neuropathy 07/03/2017 03/02/2020 Acute right-sided low back pain without sciatica 12/19/2016 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 Mixed dyslipidemia 05/16/2005 04/18/2016 OSTEOARTHROS NOS-L-LEG 7 documented as of this encounter (statuses as of 01/21/2023) Immunizations Name Administration Dates Next Due COVID-19 [...] encounter Miscellaneous Notes * Telephone Encounter - Dennise Chery DO - 10/15/2022 10:35 AM EDTSigned Prescriptions: Disp Refills Allopurinol 100 MG Oral Tablet (Zyloprim) 90 Tab*2 Sig: Take 1 Tablet by mouth in the morning. Authorizing Provider: DENNISE CHERY * Telephone Encounter - Gin Chaeny RN - 10/15/2022 10:01 AM EDTPending Prescriptions: Disp Refills Allopurinol 100 MG Oral Tablet (Zyloprim) 90 Tab*2 Sig: Take 1 Tablet by mouth in the morning. * Telephone Encounter - Gin Chaney RN - 10/15/2022 10:00 AM EDT Pending Prescriptions: Disp Refills Allopurinol 100 MG Oral Tablet (Zyloprim) 90 Tab*2 Sig: Take 1 Tablet by mouth in the morning. 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 M1A.0720 Coronary artery disease involving [place] coronary artery of [place] heart without angina pectoris I25.10 S/P angioplasty with stent Z95.820 History of [place] (myocardial infarction) I25.2 Hyperlipidemia with target LDL less than 70 E78.5 Chronic inflammatory demyelinating polyneuritis (HCC) G61.81 Actinic keratosis L57.0 Essential (primary) hypertension I10 Gastro-esophageal reflux disease without esophagitis K21.9 Primary osteoarthritis of both knees M17.0 Acquired hypothyroidism E03.9 Diastolic dysfunction I51.89 Hypertensive heart disease without heart failure I11.9 Hiatal hernia K44.9 Dysphagia R13.10 At risk for malnutrition Z91.89 Cardiomyopathy (HCC) I42.9 Labs: Lab Results Component Value Date/Time CREATININE - [facility] 0.8 08/05/2022 04:08 PM CREATININE - [facility] 0.8 11/16/2019 11:16 AM CREATININE, RANDOM URINE - [facility] 50 09/25/2021 12:22 PM CREATININE-OUTSIDE LAB 0.65 (A) 07/19/2021 12:00 AM Lab Results Component Value Date/Time POTASSIUM - [facility] 4.9 08/05/2022 04:08 PM POTASSIUM - [facility] 5.3 (H) 11/16/2019 11:16 AM POTASSIUM-OUTSIDE LAB 4.8 07/19/2021 12:00 AM Lab Results Component Value Date/Time TSH - [facility] 0.10 (L) 08/05/2022 04:08 PM TSH - [facility] 0.52 08/26/2019 11:46 AM Lab Results Component Value Date/Time LDL CHOLESTEROL (CALCULATED) - [facility] 83 07/23/2021 12:24 PM LDL CHOLESTEROL (CALCULATED) - [facility] UNINTERPRETABLE RESULT 03/24/2018 10:08 AM LDL CHOLESTEROL (CALCULATED) - [facility] 96 01/23/2017 10:00 AM LDL CHOLESTEROL (DIRECT MEASURE) - [facility] 68 08/05/2022 04:08 PM LDL CHOLESTEROL (DIRECT MEASURE) - [facility] 71 08/01/2020 11:32 AM LDL CHOLESTEROL (DIRECT MEASURE) - [facility] 91 08/26/2019 11:46 AM LDL CHOLESTEROL (DIRECT MEASURE) - [facility] 78 02/16/2019 03:12 PM Lab Results Component Value Date/Time ALT - [facility] 28 11/19/2021 11:10 AM ALT - [facility] 34 11/16/2019 11:16 AM Hemoglobin AIC Results: No results found for: HEMOGLOBIN A1C * Telephone Encounter - Kinza Amadro - 10/15/2022 7:36 AM EDT Did you pend patient's preferred pharmacy and medication before forwarding?yes Pharmacy: [facility] Pending Prescriptions: Disp Refills Allopurinol 100 MG Oral Tablet (Zyloprim) 90 Tab*2 Sig: Take 1 Tablet by mouth in the morning. Last Visit: 08/05/2022 (in office), 12/25/2021 (telemedicine) Next Visit: 02/17/2023 If no future appointments scheduled, and last appointment is greater than a year ago, please schedule patient for a follow-up appointment Last date the medication was ordered: 02.08.22 Is this request for a controlled substance?No Urine Drug Screen:No results found for this or any previous visit. Patient Phone Numbers Labs: Lab Results Component Value Date/Time CREAT 0.8 08/05/2022 04:08 PM CREAT 0.65 (A) 07/19/2021 12:00 AM CREAT 0.8 11/16/2019 11:16 AM POTASSIUM 4.9 08/05/2022 04:08 PM POTASSIUM 4.8 07/19/2021 12:00 AM POTASSIUM 5.3 (H) 11/16/2019 11:16 AM TSH 0.10 (L) 08/05/2022 04:08 PM TSH 0.52 08/26/2019 11:46 AM LDLCALC 83 07/23/2021 12:24 PM LDLCALC UNINTERPRETABLE RESULT 03/24/2018 10:08 AM LDLDIRECT 68 08/05/2022 04:08 PM LDLDIRECT 91 08/26/2019 11:46 AM ALT 28 11/19/2021 11:10 AM ALT 34 11/16/2019 11:16 AM documented in this encounter Plan of Treatment Upcoming Encounters Date Type Specialty Care Team Description 02/17/2023 Office Visit Cardiology Elton Smith PA-C [address] [place] [address] 02/17/2023 Office Visit Family Medicine Dennise Chery[address] [place] [address] 03/26/2023 Office Visit Orthopedics Koffi Logan MD [address] [place] [address] 06/04/2023 Office Visit Orthopedics Koffi Logan MD [address] [place] [address] Health Maintenance Due Date Last Done Comments [...] as of this encounter Visit Diagnoses Diagnosis 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
--- OUTSIDE RECORDS SUMMARY | 2023-04-28 13:17 | External Medical Summary | Summary of Care ---
Author Name Unknown Organization [facility] Address [address] [place] [address] Phone [phone] Care Team Providers Care Bond Runner Name Role Phone Elizabeth Vanegas Primary Care Provider [phone] Encounter Details Date Type Department Care Team Description 01/27/2023 Documentation Home [facility] [place] [address] [place] [address] Infusion, Nurse [place] [address] [place] [address] Allergies No known active allergiesdocumented as of this encounter (statuses as of 01/27/2023) Medications Medication Sig Dispensed Refills Start Date [...] as of this encounter (statuses as of 01/27/2023) Active Problems Problem Noted Date Cardiomyopathy 03/03/2022 [...] 70 10/22/2018 Coronary artery disease invo lving [place] coronary artery of [place] heart without angina pectoris 08/10/2018 S/P angioplasty with stent 08/10/2018 History of [place] (myocardial infarction) 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 [facility] 12/19/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 documented as of this encounter (statuses as of 01/27/2023) Resolved Problems Problem Noted Date Resolved Date Aspiration pneumonia of both lower lobes due to gastric secretions 01/24/2022 07/24/2022 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 08/26/2019 08/26/2019 SVT (supraventricular tachycardia) 10/22/2018 03/02/2020 Chronic systolic congestive heart failure 201808/01/2020 Protein-calorie malnutrition 08/10/201809/2018 Loss of weight 08/10/2018 02/16/2019 Skin abnormality 08/03/2018 03/02/2020 Irregular heart rate 08/03/2018 08/01/2020 Neuropathy 07/03/2017 03/02/2020 Acute right-sided low back pain without sciatica 12/19/2016 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 Mixed dyslipidemia 05/16/2005 04/18/2016 OSTEOARTHROS NOS-L-LEG 7 documented as of this encounter (statuses as of 01/27/2023) Immunizations Name Administration Dates Next Due COVID-19 mRNA, LNP-s, No Pre serve, 2-Dose Series (Azendoo) 07/10/2020,06/19/2020 COVID-19, LNP-s, No Preserve , Marlon-sucrose, Ages 12+ (Pfizer) 07/23/2021 Covid-19, Mrna, Lnp-s, Pf, B ivalent, 30 Mcg, IM, 12 yrs and above (Azendoo) 02/04/2022 Pneumococcal Conjugate Vacc, 13 Valent (Prevnar) [...] Progress Notes * Tomás Long RN - 01/27/2023 12:12 PM EDT [facility] Home 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) Medication Administered: Gammagard (IVIG) Dose: 20 Grams Dosing Interval: 4 weeks Date of Infusion: 01/27/23 Patient Tolerated Therapy: Yes Next Scheduled Infusion Date: 02/24/23 Next Labs Due: (as ordered by provider) Number of Refills Remaining?: 0 Treatment completed as ordered: Yes documented in this encounter Plan of Treatment Upcoming Encounters Date Type Specialty Care Team Description 02/17/2023 Office Visit Cardiology Elton Smith PA-C [address] [place] [address] 02/17/2023 Office Visit Family Medicine Elizabeth Vanegas[address] [place] [address] 03/26/2023 Office Visit Orthopedics Koffi Logan MD [address] [address] 06/04/2023 Office Visit Orthopedics Koffi Logan MD [address] [place] [address] Health Maintenance Due Date Last Done Comments [...] filedocumented as of this encounter Care Teams Bond Runner Relationship Specialty Start Date End Date Elizabeth Vanegas, [address] [place] [address] PCP - General Internal Medicine 08/05/22 documented as of this encounter
--- OUTSIDE RECORDS SUMMARY | 2023-04-28 13:17 | External Medical Summary | Summary of Care ---
Author Name Unknown Organization [facility] Address [address] [facility] [place] [address] Phone [phone] Care Team Providers Care Assembly Department Supervisor Name Role Phone Elizabeth Vanegas DO Primary Care Provider + [phone] Reason for Visit * Reason Onset Date Comments Home Health 02/02/2023 Order to be sign ed. Encounter Details Date Type Department Care Team (Late st Contact Info) Description 02/02/2023 Telephone Family Medicine [address] [address] Elizabeth Vanegas DO [address] [place] [address] [place] [address] [facility] (Order to be signed. 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 Mixed dyslipidemia 05/16/2005 7 OSTEOARTHROS NOS-L-LEG 04/18 documented as of this encounter (statuses as of 02/04/2023) Immunizations Name Administration Dates Next Due COVID-19 mRNA, LNP-s, No Pre serve, 2-Dose Series ([employer]) 07/10/2020,06/19/2020 COVID-19, LNP-s, No Preserve , Marlon-sucrose, Ages 12+ (Pfizer) 07/23/2021 Covid-19, Mrna, Lnp-s, Pf, B ivalent, 30 Mcg, IM, 12 yrs and above (Re[employer] Power) 02/04/2022 Pneumococcal Conjugate Vacc, 13 Valent (Prevnar) [...] Telephone Encounter - Elizabeth Vanegas DO - 02/04/2023 8:31 AM EDT Signed and faxed. * Telephone Encounter - Bonita Nicholas LPN - 02/02/2023 11:50 AM EDT Karyn calling from [facility]. She faxed a supplemental order dated 01/26, faxed on 01/28 to [phone]. She is going to refax to [phone]. Please sign the orders and fax back to [phone] or [phone]. documented in this encounter Plan of Treatment Upcoming Encounters Date Type Department Care Team (Late st Contact Info) Description 02/17/2023 1:30 PM EST Office Visit Cardiology [address] [place] [address] Elton Smith PA-C [address] [place] [address] 02/17/2023 2:30 PM EST Office Visit Family Medicine [address] [address] Elizabeth Vanegas DO [address] [place] [address] [place] [address] 03/26/2023 10:30 AM EST Office Visit Orthopaedics [address] [address] Koffi Logan MD [address] [place] [address] 06/04/2023 10:45 AM EST Office Visit Orthopaedics [address] [address] Koffi Logan MD [address] [place] [address] Health Maintenance Due Date Last Done Comments [...] filedocumented as of this encounter Care Teams Assembly Department Supervisor Relationship Specialty Start Date End Date Elizabeth Vanegas DO [address] [place] [address] [place] [address] PCP - General Internal Medicine 08/05/22 documented as of this encounter
--- OUTSIDE RECORDS SUMMARY | 2023-04-28 13:17 | External Medical Summary ---
Author Name Unknown Address Unknown Organization K01:[facility] [place] [address] [place] [address] Laboratory Report Ordering Provider Test Date Status VIK BOWDEN 02/17/2023 15:34:19 Final Observation Date Value Abnormality Reference (Units ) Status WBC, Total 02/17/2023 15:34:19 11.39 Above high normal 4 .00-10.80 (K/uL) Final RBC 02/17/2023 15:34:19 3.97 3.85-5.15 (M/uL) Final Hemoglobin 02/17/2023 15:34:19 13.3 12.0-15.3 (g/dL) Final Anemia reflex testing trigge rs on a HGB < 12.0 for Females and HGB < 13.0 for Males in accordance with the WHO Anemia Guidelines
Anemia reflex testing triggers on a HGB < 12.0 for Females and HGB < 13.0 for Males in accordance with the WHO Anemia Guidelines HCT 02/17/2023 15:34:19 41.8 36.0-45.2 (%) Final MCV 02/17/2023 15:34:19 105.3 81.5-97.5 (fL) Final MCH 02/17/2023 15:34:19 33.5 27.0-34.0 (pg) Final MCHC 02/17/2023 15:34:19 31.8 32.0-36.0 (g/dL) Final RDW 02/17/2023 15:34:19 14.2 11.5-15.5 (%) Final Platelets 02/17/2023 15:34:19 410 Above hi gh normal 140-400 (K/uL) Final MPV 02/17/2023 15:34:19 11.0 6.6-11.1 ( fL) Final Nucleated erythrocytes/100 leukocytes [Ratio] in Blood by Automated count 02/17/2023 15:34:19 0 <=0 (/100 WBCs) Fi [facility] Performing Location [facility] [place] - [address] [facility] [address]
--- OUTSIDE RECORDS SUMMARY | 2023-04-28 13:17 | External Medical Summary | Summary of Care ---
Author Name Unknown Organization [facility] Address [address] [facility] [place] [address] Phone [phone] Care Team Providers Care Certified Medication Aide Name Role Phone Elizabeth Vanegas DO Primary Care Provider + [phone] Reason for Visit * Reason Onset Date Comments Home Health 02/02/2023 Order to be sign ed. Encounter Details Date Type Department Care Team (Late st Contact Info) Description 02/02/2023 Telephone Family Medicine [address] [address] Elizabeth Vanegas DO [address] [place] [address] [place] [address] [facility] (Order to be signed. 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 documented as of this encounter (statuses as of 02/03/2023) Resolved Problems Problem Noted Date Diagnosed Date [...] as of this encounter (statuses as of 02/03/2023) Immunizations Name Administration Dates Next Due COVID-19 mRNA, LNP-s, No Pre serve, 2-Dose Series ([employer]) 07/10/2020,06/19/2020 COVID-19, LNP-s, No Preserve , Marlon-sucrose, Ages 12+ (Pfizer) 07/23/2021 Covid-19, Mrna, Lnp-s, Pf, B ivalent, 30 Mcg, IM, 12 yrs and above ([place]) 02/04/2022 Pneumococcal Conjugate Vacc, 13 Valent (Prevnar) [...] encounter Miscellaneous Notes * Telephone Encounter - Bonita Nicholas LPN - 02/02/2023 11:50 AM EDT Karyn calling from [facility]. She faxed a supplemental order dated 01/26, faxed on 01/28 to [phone]. She is going to refax to [phone]. Please sign the orders and fax back to [phone] or [phone]. documented in this encounter Plan of Treatment Upcoming Encounters Date Type Department Care Team (Late st Contact Info) Description 02/17/2023 1:30 PM EST Office Visit Cardiology [address] [place] [address] Elton Smith PA-C [address] [place] [address] 02/17/2023 2:30 PM EST Office Visit Family Medicine [address] [address] [place] [address] 03/26/2023 10:30 AM EST Office Visit Orthopaedics [address] [address] Koffi Logan MD [address] [place] [address] 06/04/2023 10:45 AM EST Office Visit Orthopaedics [address] [address] Koffi Logan MD [address] [place] [address] Health Maintenance Due Date Last Done Comments [...] filedocumented as of this encounter Care Teams Certified Medication Aide Relationship Specialty Start Date End Date Elizabeth Vanegas DO [address] [place] [address] [place] [address] PCP - General Internal Medicine 08/05/22 documented as of this encounter
--- OUTSIDE RECORDS SUMMARY | 2023-04-28 13:17 | External Medical Summary ---
Author Name Unknown Address Unknown Organization K01:[facility] [place] - [address] [place] [address] Laboratory Report Ordering Provider Test Date Status VIK BOWDEN 02/17/2023 15:34:19 Final Observation Date Value Abnormality Reference (Units ) Status Iron 02/17/2023 15:34:19 56 33-151 (ug /dL) Final Iron-binding capacity 02/17/2023 15:34:19 328 250-425 (ug/dL) Final Transferrin Sat % 02/17/2023 15:34:19 17 15 -55 (%) Final Performing Location LABORATORY [facility] - [address] [place] [address]
--- OUTSIDE RECORDS SUMMARY | 2023-04-28 13:18 | External Medical Summary | Summary of Care ---
Author Name Unknown Organization [facility] Address [address] [facility] [place] [address] Phone [phone] Care Team Providers Care Stem Assembler Name Role Phone Elizabeth Vanegas DO Primary Care Provider + [phone] Reason for Visit * Reason Onset Date Comments Home Health 11/26/2022 Encounter Details Date Type Department Care Team Description 11/26/2022 Telephone Family Medicine [address] [place] [address] Elizabeth Vanegas DO [address] [place] [address] [place] [id number] Home Health Allergies No known active allergiesdocumented as of this encounter (statuses as of 11/26/2022) Medications Medication Sig Dispensed Refills Start Date [...] before bedtime. 30 Capsule 0 01/29/2022 Active Pantoprazole Sodium 20 MG Oral Tablet Delayed Release (Protonix)Indication s:Gastroesophageal reflux disease without esophagitis Take by mouth 1 Tablet in the morning. 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 documented as of this encounter (statuses as of 11/26/2022) Resolved Problems Problem Noted Date Resolved Date Aspiration pneumonia of both lower lobes due to gastric secretions 01/24/2022 07/24/2022 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 08/26/2019 08/26/2019 SVT (supraventricular tachycardia) 10/22/2018 03/02/2020 Chronic systolic congestive heart failure 201808/01/2020 Protein-calorie malnutrition 08/10/201809/2018 Loss of weight 08/10/2018 02/16/2019 Skin abnormality 08/03/2018 03/02/2020 Irregular heart rate 08/03/2018 08/01/2020 Neuropathy 07/03/2017 03/02/2020 Acute right-sided low back pain without sciatica 12/19/2016 10/22/2017 alf current use of systemic steroids 06/0603/24/2018 Inflammatory arthritis 11/29/2015 9 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 Mixed dyslipidemia 05/16/2005 04/18/2016 OSTEOARTHROS NOS-L-LEG 7 documented as of this encounter (statuses as of 11/26/2022) Immunizations Name Administration Dates Next Due COVID-19 mRNA, LNP-s, No Pre serve, 2-Dose Series ([employer]) 07/10/2020,06/19/2020 COVID-19, LNP-s, No Preserve , Marlon-sucrose, Ages 12+ (Pfizer) 07/23/2021 Covid-19, Mrna, Lnp-s, Pf, B ivalent, 30 Mcg, IM, 12 yrs and above ([employer]) 02/04/2022 Pneumococcal Conjugate Vacc, 13 Valent (Prevnar) 07/18/2016 Pneumococcal Polysaccharide PPV23 (Pneumovax) 04/11/2015,08/04/2014,05/23/2005 Seasonal Influenza Intranasal 02/17/2014 Seasonal Influenza Virus Vac cine, Unspecified Formulation 01/25/2018,01/23/2017 Seasonal Influenza, Quadriva lent Hd (Fluzone Hd) 02/04/2022,01/08/2021 Seasonal Influenza, Quadriva lent Hd, 65+ Yrs 01/12/2020 Seasonal Influenza, Quadriva lent, No Preserve, 6 Mons & Above, IM 01/10/2019,01/25/2018,01/23/2017 Seasonal Influenza, Split, I IV3, With Preserve, [...] encounter Miscellaneous Notes * Telephone Encounter - Naa Goldsmith LPN - 11/26/2022 2:40 PM EDT Karyn from [facility] states that she faxed orders that needed to be signed one daylast week (does not know the date) and then again 11/25/22 to [phone] She would like to know if this was received It needs to be signed by PCP and faxed back to [phone] Reason for Call: Home Health Contact: Telephone Call Contact Type: Care Coordination Total Time including non face to face (minutes): 5 documented in this encounter Plan of Treatment Upcoming Encounters Date Type Specialty Care Team Description 11/27/2022 Office Visit Orthopedics Koffi Logan MD [address] [place] [address] 01/12/2023 Office Visit Orthopedics Jaquan Greenfield MD [address] [place] [address] 02/17/2023 Office Visit Cardiology Elton Smith PA-C [address] [place] [address] 02/17/2023 Office Visit Family Medicine Elizabeth Vanegas[address] [place] [address] Health Maintenance Due Date Last Done Comments Depression Screening, Annual for Pts 12 and Over 08/01/2021 08/01/2020 Influenza Vaccine (FLU shot) (#1) 2022 02/04/2022, [...] exists Zoster Vaccines Completed 08/02/2020, 02/11, 02/27/2017 COVID-19 Vaccine Completed 02/04/2022, 03/2022, 07/10/2020, Additional history exists GARDASIL-HPV IMMUNIZATION SERIES Aged [...] filedocumented as of this encounter Care Teams Stem Assembler Relationship Specialty Start Date End Date Elizabeth Vanegas, [address] [place] [address] PCP - General Internal Medicine 08/05/22 documented as of this encounter
--- OUTSIDE RECORDS SUMMARY | 2023-04-28 13:18 | External Medical Summary | Summary of Care ---
Author Name Unknown Organization [facility] Address [address] [facility] [place] [address] Phone [phone] Care Team Providers Care Clinical Law Professor Name Role Phone VanegasPabloElizabeth Tere SCHUMACHER Primary Care Provider [phone] Reason for Visit * Reason Comments Follow Up chronic B/L knee praveen n with activity x ight knee Durolane injection today Encounter Details Date Type Department Care Team Description 11/27/2022 Office Visit Orthopaedics [address] [address] Delmis Logan MD [address] [email or web address] [place] [address] Primary osteoarthritis of right knee*; Primary osteoarthritis of left knee Allergies No known active allergiesdocumented as of this encounter (statuses as of 11/28/2022) Medications Medication Sig Dispensed Refills Start Date [...] MORNING 100 Tablet 3 10/22/2022 4 Active Hospital, Clinic, or Other Facility Administered Medication Ordered Dose Route Frequency Start Date End Date Status Sodium Hyaluronate (Durolane) inj 60 mgIndications:Primary osteoarthritis of right knee 60 mg IX ONCE 11/28/2022 11/27/2022 Ended documented as of this encounter (statuses as of 11/28/2022) Active Problems Problem Noted Date Cardiomyopathy 03/03/2022 [...] 69 10/22/2018 Coronary artery disease invo lving [place] coronary artery of [place] heart without angina pectoris 08/10/2018 S/P angioplasty with stent 08/10/2018 History of [place] (myocardial infarction) 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 documented as of this encounter (statuses as of 11/28/2022) Resolved Problems Problem Noted Date Resolved Date Aspiration pneumonia of both lower lobes due to gastric secretions 01/24/2022 07/24/2022 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 08/26/2019 08/26/2019 SVT (supraventricular tachycardia) 10/22/2018 03/02/2020 Chronic systolic congestive heart failure 201808/01/2020 Protein-calorie malnutrition 08/10/201809/2018 Loss of weight 08/10/2018 02/16/2019 Skin abnormality 08/03/2018 03/02/2020 Irregular heart rate 08/03/2018 08/01/2020 Neuropathy 07/03/2017 03/02/2020 Acute right-sided low back pain without sciatica 12/19/2016 10/22/2017 intermediate current use of systemic steroids 06/0603/24/2018 Inflammatory arthritis 11/29/2015 9 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 Mixed dyslipidemia 05/16/2005 04/18/2016 OSTEOARTHROS NOS-L-LEG 7 documented as of this encounter (statuses as of 11/28/2022) Immunizations Name Administration Dates Next Due COVID-19 mRNA, LNP-s, No Pre serve, 2-Dose Series ([employer]) 07/10/2020,06/19/2020 COVID-19, LNP-s, No Preserve , Marlon-sucrose, Ages 12+ ([employer]) 07/23/2021 Covid-19, Mrna, Lnp-s, Pf, B ivalent, 30 Mcg, IM, 12 yrs and above ([employer]) 02/04/2022 Pneumococcal Conjugate Vacc, 13 Valent (Prevnar) 07/18/2016 Pneumococcal Polysaccharide PPV23 (Pneumovax) 04/11/2015,08/04/2014,05/23/2005 Seasonal Influenza Intranasal 02/17/2014 Seasonal Influenza Virus Vac cine, Unspecified Formulation 01/25/2018,01/23/2017 Seasonal Influenza, PF, 6 mo ns & Above, IM , (Flulaval) 01/10/2019,01/25/2018,01/23/2017 Seasonal Influenza, Quadriva lent Hd (Fluzone [...] as of this encounter Progress Notes * Delmis Logan MD - 11/27/2022 9:17 AM EDT Diana Chandler [id number] Diana Chandler is a 81 year old female who presents for follow-up to [facility] for bilateral knee injury/pain. I saw her initially for this on 09/04/2022 Most recent visit 11/06/2022 Diana Chandler is here unaccompanied Quality: reviewed [...] IGIV infusion tomorrow will send note with PA-Domingo signature 11/06/2022: Received benefit but not resolution of pain with bilateral steroid injections I performed for her. She is relatively pleased regarding her knees. 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 Tobacco Use Smoking status: Never Smokeless tobacco: Never Vaping Use Vaping Use: Never used Substance and Sexual Activity Alcohol use: No Drug use: No Sexual activity: Yes Partners: Male control/protection: Surgical Comment: menopausal hyst Other Topics Concern Not on file Social History Narrative Not on file Social Determinants of Health Financial Resource Strain: Not on file Food Insecurity: Not on file Transportation Needs: Not on file Physical Activity: [...] 120/0/0 Popliteal Angle (Hamstring Flexibility): 30 Bilateral Strength: SLR: Extension: L - 5/5, R - 5/5 Flexion: L - 5/5, R - 5/5 Radiology (I have personally reviewed the following [...] given she is having injection tomorrow with [employer] (see history above) Bilateral intra-articular steroid injection performed 09/04/2022 Received benefit but not resolution of pain with bilateral steroid injections I performed for her. She was relatively pleased regarding her knees following the steroid injections but elected to try viscosupplementation Sodium Hyaluronate (Durolane) 60mg/3ml 3ml injected intra-articular in the left knee on 11/06/2022 helped her significantly. She is very pleased. Desired to try it in the right knee. Sodium Hyaluronate (Durolane) 60mg/3ml 3ml injected intra-articular today 11/27/2022 in the right knee Pt Name: Diana Chandler Diagnosis: OA right knee. The patient is here for Sodium Hyaluronate (Durolane) 60mg/3ml 3ml injected intra-articular today. There is no sign of infection in the injected knee. A timeout was called immediately prior to the procedure, to confirm the correct patient, procedure,and site. The site was marked by the physician prior to the procedure. Site was identified: knee: Right Procedure: Under sterile fashion, a 2 ml vial of Durolane 60mg/ 3ml was injected intra-articularly into the knee. Patient tolerated this well. Assessment: OA right knee. Delmis Logan MD Primary Care Sports Medicine Orthopaedics [address] [address] documented in this encounter Nursing Notes * Sly Allison LPN - 11/27/2022 9:18 AM EDT F/U chronic B/L knee pain with activity x 2020 Right knee Durolane injection today Left knee Durolane 11/06/2022 Bilateral intra-articular steroid injection performed today 09/04/2022 (8 weeks and 2 days) x-ray 08/01/20 documented in this encounter Miscellaneous Notes * Addendum Note - Delmis Logan MD - 11/28/2022 8:24 AM EDTAddended by: DELMIS LOGAN on: 11/28/2022 08:24 AM Modules accepted: Orders * Addendum Note - Sly Allison LPN - 11/27/2022 3:16 PM EDTAddended by: SLY ALLISON on: 11/27/2022 03:16 PM Modules accepted: Orders documented in this encounter Plan of Treatment Upcoming Encounters Date Type Specialty Care Team Description 01/12/2023 Office Visit Orthopedics Jaquan Greenfield MD [address] [place] [address] 02/17/2023 Office Visit Cardiology Elton Smith PA-C [address] [place] [address] 02/17/2023 Office Visit Family Medicine Elizabeth Vanegas[address] [place] [address] 06/04/2023 Office Visit Orthopedics Delmis Logan MD [address] [place] [address] Health Maintenance Due Date Last Done Comments [...] encounter Visit Diagnoses Diagnosis Primary osteoarthritis of right knee- Primary Primary localized osteoarthrosis, lower leg Primary osteoarthritis of left knee Primary localized osteoarthrosis, lower leg documented in this encounter Administered Medications Inactive Administered Medications - up to 3 most recent administrations Medication Order MAR Action Action Date Dose Rate Site Sodium Hyaluronate (Durolane) inj 60 mg 60 mg, Intra-Articular, ONCE, On Thu11/28/22 at 0900, For 1 dose Given 11/27/2022 9:18 AM EDT 60 mg Knee Right documented in this encounter Care Teams Clinical Law Professor Relationship Specialty Start Date End Date Elizabeth Vanegas, [address] [place] [id number] PCP - General Internal Medicine 08/05/22 documented as of this encounter
--- OUTSIDE RECORDS SUMMARY | 2023-04-28 13:18 | External Medical Summary | Summary of Care ---
Author Name Unknown Organization [facility] Address [address] [place] [address] Phone [phone] Care Team Providers Care Motor Vehicle Dispatcher Name Role Phone Elizabeth Vanegas Primary Care Provider [phone] Encounter Details Date Type Department Care Team Description 12/02/2022 Documentation Home [facility], [place] [address] [place] [address] Infusion, Nurse [place] [address] [place] [address] Allergies No known active allergiesdocumented as of this encounter (statuses as of 12/02/2022) Medications Medication Sig Dispensed Refills Start Date [...] as of this encounter (statuses as of 12/02/2022) Active Problems Problem Noted Date Cardiomyopathy 03/03/2022 [...] 69 10/22/2018 Coronary artery disease invo lving [place] coronary artery of [place] heart without angina pectoris 08/10/2018 S/P angioplasty with stent 08/10/2018 History of [place] (myocardial infarction) 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 12/19/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 documented as of this encounter (statuses as of 12/02/2022) Resolved Problems Problem Noted Date Resolved Date Aspiration pneumonia of both lower lobes due to gastric secretions 01/24/2022 07/24/2022 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 08/26/2019 08/26/2019 SVT (supraventricular tachycardia) 10/22/2018 03/02/2020 Chronic systolic congestive heart failure 201808/01/2020 Protein-calorie malnutrition 08/10/201809/2018 Loss of weight 08/10/2018 02/16/2019 Skin abnormality 08/03/2018 03/02/2020 Irregular heart rate 08/03/2018 08/01/2020 Neuropathy 07/03/2017 03/02/2020 Acute right-sided low back pain without sciatica 12/19/2016 10/22/2017 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 Mixed dyslipidemia 05/16/2005 04/18/2016 OSTEOARTHROS NOS-L-LEG 7 documented as of this encounter (statuses as of 12/02/2022) Immunizations Name Administration Dates Next Due COVID-19 mRNA, LNP-s, No Pre serve, 2-Dose Series ([employer]) 07/10/2020,06/19/2020 COVID-19, LNP-s, No Preserve , Marlon-sucrose, [...] Progress Notes * Tomás Long RN - 12/02/2022 12:43 PM EDT [facility] 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) Medication Administered: Gammagard (IVIG) Dose: 20G Dosing Interval: 4 weeks Date of Infusion: 12/02/22 Patient Tolerated Therapy: Yes Next Scheduled Infusion Date: 12/30/22 Next Labs Due: (as ordered by provider) Treatment completed as ordered: Yes documented in this encounter Plan of Treatment Upcoming Encounters Date Type Specialty Care Team Description 01/12/2023 Office Visit Orthopedics Jaquan Greenfield MD [address] [place] [address] 02/17/2023 Office Visit Cardiology Elton Smith PA-C [address] [place] [address] 02/17/2023 Office Visit Family Medicine Elizabeth Vaneg[address] [place] [address] 06/04/2023 Office Visit Orthopedics Koffi Logan MD [address] [place] [address] Health Maintenance Due Date Last Done Comments [...] filedocumented as of this encounter Care Teams Motor Vehicle Dispatcher Relationship Specialty Start Date End Date Elizabeth Vanegas, [address] [place] [address] PCP - General Internal Medicine 08/05/22 documented as of this encounter
--- OUTSIDE RECORDS SUMMARY | 2023-04-28 13:18 | External Medical Summary | Summary of Care ---
Author Name Unknown Organization [facility] Address [address] [facility] [place] [address] Phone [phone] Care Team Providers Care Process Engineering Technician Name Role Phone VanegasElizabeth chavez Primary Care Provider [phone] Reason for Visit * Reason Comments Follow Up chronic B/L knee praveen n with activity Encounter Details Date Type Department Care Team Description 11/06/2022 Office Visit Orthopaedics [address] [address] Koffi Logan MD [address] [facility] [place] [address] Primary osteoarthritis of left knee*; Primary osteoarthritis of right knee Allergies No known active allergiesdocumented as of this encounter (statuses as of 11/06/2022) Medications Medication Sig Dispensed Refills Start Date [...] Hyaluronate (Durolane) inj 60 mgIndications:Primary osteoarthritis of left knee 60 mg IX ONCE 11/06/2022 11/07/19 23 Ended documented as of this encounter (statuses as of 11/06/2022) Active Problems Problem Noted Date Cardiomyopathy 03/03/2022 [...] 69 10/22/2018 Coronary artery disease invo lving [place] coronary artery of [place] heart without angina pectoris 08/10/2018 S/P angioplasty with stent 08/10/2018 History of [place] (myocardial infarction) 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 [facility] 12/19/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 documented as of this encounter (statuses as of 11/06/2022) Resolved Problems Problem Noted Date Resolved Date Aspiration pneumonia of both lower lobes due to gastric secretions 01/24/2022 07/24/2022 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 08/26/2019 08/26/2019 SVT (supraventricular tachycardia) 10/22/2018 03/02/2020 Chronic systolic congestive heart failure 201808/01/2020 Protein-calorie malnutrition 08/10/201809/2018 Loss of weight 08/10/2018 02/16/2019 Skin abnormality 08/03/2018 03/02/2020 Irregular heart rate 08/03/2018 08/01/2020 Neuropathy 07/03/2017 03/02/2020 Acute right-sided low back pain without sciatica 12/19/2016 10/22/2017 FDC current use of systemic steroids 06/0603/24/2018 Inflammatory arthritis 11/29/2015 9 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 Mixed dyslipidemia 05/16/2005 04/18/2016 OSTEOARTHROS NOS-L-LEG 7 documented as of this encounter (statuses as of 11/06/2022) Immunizations Name Administration Dates Next Due COVID-19 mRNA, LNP-s, No Pre serve, 2-Dose Series ([employer]) 07/10/2020,06/19/2020 COVID-19, LNP-s, No Preserve , Marlon-sucrose, Ages 12+ ([employer]) 07/23/2021 Covid-19, Mrna, Lnp-s, Pf, B ivalent, 30 Mcg, IM, 12 yrs and above ([employer]) 02/04/2022 Pneumococcal Conjugate Vacc, 13 Valent (Prevnar) [...] Progress Notes * Koffi Logan MD - 11/06/2022 2:00 PM EDT Diana Chandler [id number] Diana Chandler is a 81 year old female who presents for follow-up to [facility] for bilateral knee injury/pain. 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[facility] neurology IGIV tomorrow Gammagard (IVIG) Dose: 20Grams Dosing Interval: 4 weeks Date of Infusion: 08/04/22 Patient Tolerated Therapy: Yes Next Scheduled Infusion Date: 09/04/22 Next Labs Due: (as ordered by provider) Treatment completed as ordered: Yes Spoke with Shaniqua at [facility] Neurology patient is able to have steroid injection, would not interfere with IGIV infusion tomorrow will send note with PA-C signature Since that visit: Received benefit but not resolution of pain with bilateral steroid injections I performed for her. She is relatively pleased regarding her knees. 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 Discussed options Sodium Hyaluronate (Durolane) 60mg/3ml 3ml injected intra-articular today in the left knee F/u 3-5 weeks - f/u BL knee pain, likely R knee durolane injection Pt Name: Diana Chandler Diagnosis: OA left knee. The patient is here for Sodium Hyaluronate (Durolane) 60mg/3ml 3ml injected intra-articular today. There is no sign of infection in the injected knee. A timeout was called immediately prior to the procedure, to confirm the correct patient, procedure,and site. The site was marked by the physician prior to the procedure. Site was identified: knee: Left Procedure: Under sterile fashion, a 2 ml vial of Durolane 60mg/ 3ml was injected intra-articularly into the knee. Patient tolerated this well. Assessment: OA LEFT knee. Koffi Logan MD Primary Care Sports Medicine Orthopaedics [address] [address] documented in this encounter Nursing Notes * Gerri Regalado LPN - 11/06/2022 1:45 PM EDT F/U chronic B/L knee pain with activity x 2020 Bilateral intra-articular steroid injection performed today 09/04/2022 (8 weeks and 2 days) Patient notes knees are hurting to day 08/20 today. x-ray 08/01/20 documented in this encounter Plan of Treatment Upcoming Encounters Date Type Specialty Care Team Description 11/27/2022 Office Visit Orthopedics Koffi Logan MD [address] [place] [address] 01/12/2023 Office Visit Orthopedics Jaquan Greenfield MD [address] [place] [address] 02/17/2023 Office Visit Cardiology Elton Smith PA-C [address] [place] [address] 02/17/2023 Office Visit Family Medicine Elizabeth Vanegas, [address] [place] [address] Health Maintenance Due Date Last Done Comments Depression Screening, Annual for Pts 12 and Over 08/01/2021 08/01/2020 Influenza Vaccine (FLU shot) (#1) 2022 02/04/2022, 01/08/2021, 01/12/2020, Additional history exists DXA Scan 07/31/2023 07/30/2016, 08/2005, 04/20/2003, Additional history exists GFR 08/06/2023 08/05/2022, 07/2021, 01/24/2022, Additional history exists TSH 08/06/2023 08/05/2022, 07/12, 01/08/2021, Additional history exists Albumin/Creatinine Ratio 09/25/2024 09/25/2021 DTaP,Tdap,and Td Vaccines (2 - Td or [...] encounter Visit Diagnoses Diagnosis Primary osteoarthritis of left knee- Primary Primary localized osteoarthrosis, lower leg Primary osteoarthritis of right knee Primary localized osteoarthrosis, lower leg documented in this encounter Administered Medications Inactive Administered Medications - up to 3 most recent administrations Medication Order MAR Action Action Date Dose Rate Site Sodium Hyaluronate (Durolane) inj 60 mg 60 mg, Intra-Articular, ONCE, On Renu 11/06/22 at 1445, For 1 dose Given 11/06/2022 3:00 PM EDT 60 mg Knee Left documented in this encounter Care Teams Process Engineering Technician Relationship Specialty Start Date End Date Elizabeth Vanegas, [address] [place] [address] PCP - General Internal Medicine 08/05/22 documented as of this encounter
--- OUTSIDE RECORDS SUMMARY | 2023-04-28 13:18 | External Medical Summary | Summary of Care ---
Author Name Unknown Organization [facility] Address [address] [facility] [place] [address] Phone [phone] Care Team Providers Care Jewel Flat Surfacer Name Role Phone Dennise Chery DO Primary Care Provider + [phone] Reason for Visit * Reason Onset Date Comments Medication Refill 01/12/2023 Encounter Details Date Type Department Care Team Description 01/12/2023 Refill Family Medicine [address] [place] [address] Dennise Chery DO [address] [place] [address] [place] [id number] Gastroesophageal reflux disease without esophagitis Allergies No known active allergiesdocumented as of this encounter (statuses as of 01/13/2023) Medications Medication Sig Dispensed Refills Start Date End Date Status vitamin b-12 (CYANOCOBALAMIN) 1000 MCG/ML injection Inject 1,000 mcg into a large muscle. 1 injection monthly 0 Active acetaminophen (TYLENOL) 500 MG Tablet Take 1 Tablet by mouth every 6 hours as needed for Pain. 0 Active nitroglycerin (NITROSTAT) 0.4 MG SUBL 0 9 Active Diclofenac Sodium 1 % External Gel (Voltaren) Apply to topically as directed 0 Active Immune Globulin (Human) 1 GM/10ML Injection Solution (Gammagard/Gamunex- C/Gammaked) Administer intravenously Every Month . 0 Active Safety Syringe/Needle 25G X 5/8" 3 ML (Syringe/Needle (Disp)) Use as directed for vitamin B12 injections. 10 Each 0 04/27/202 2 Active Insulin Syringe-Needle U-100 30G X 1/2" 1 ML Use as directed for vitamin B12 injections. 10 Each 0 2 Active DULoxetine HCl 60 MG Oral Capsule Delayed Release Particles (Cymbalta) Take by mouth 1 Capsule before bedtime. 30 Capsule 0 2 Active Metoprolol Succinate ER 25 [...] the morning. 90 Tablet 1 2 Active Gabapentin 600 MG Oral Tablet (Neurontin) Take by mouth 1 Tablet in the morning AND 1 Tablet at noon AND 1 Tablet before bedtime. 90 Tablet 1 2 Active Vitamin D3 50 MCG (2000 UT) Oral Capsule Take by mouth 1 Capsule in the morning. 30 Capsule 0 2 Active Aspirin EC 81 MG Oral Tablet Delayed Release Take by mouth 1 Tablet in the morning. 100 Tablet 3 2 Active Wheelchair CushionIndications: Chronic inflammatory demyelinating polyneuritis (HCC) Use with wheelchair to help patient rise from a seated position. 1 Each 0 3 Active Allopurinol 100 MG Oral Tablet (Zyloprim)Indicatio [...] 90 Capsule 1 3 08/01/19 24 Active Diclofenac Sodium 1 % External Gel (Voltaren) APPLY TOPICALLY 3 TIMES A DAY NEEDED. 300 g 0 3 06/30/19 24 Active Cyanocobalamin 1000 MCG/ML Injection Solution (Cyanocobalamin) INJECT 1000 MCG INTO A LARGE MUSCLE EVERY 30 DAYS 3 mL 3 3 05/08/19 24 Active Levothyroxine Sodium 88 MCG Oral Tablet (Levoxyl)Indication s:Acquired hypothyroidism TAKE ONE TABLET BY MOUTH SIX DAYS PER WEEK 100 Tablet 2 2 04/08/20 23 Active amLODIPine Besylate 5 MG Oral Tablet (Norvasc) TAKE ONE TABLET BY MOUTH EVERY DAY IN THE MORNING 100 Tablet 3 3 10/22/19 24 Active Pantoprazole Sodium 20 MG Oral Tablet Delayed Release (Protonix)Indicatio ns:Gastroesophageal reflux disease without esophagitis Take 1 Tablet by mouth in the morning. 100 Tablet 3 3 Active Pantoprazole Sodium 20 MG Oral Tablet Delayed Release (Protonix)Indicatio ns:Gastroesophageal reflux disease without esophagitis Take by mouth 1 Tablet in the morning. 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 documented as of this encounter (statuses as of 01/13/2023) Resolved Problems Problem Noted Date Resolved Date Aspiration pneumonia of both lower lobes due to gastric secretions 01/24/2022 07/24/2022 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 08/26/2019 08/26/2019 SVT (supraventricular tachycardia) 10/22/2018 03/02/2020 Chronic systolic congestive heart failure 201808/01/2020 Protein-calorie malnutrition 08/10/201809/2018 Loss of weight 08/10/2018 02/16/2019 Skin abnormality 08/03/2018 03/02/2020 Irregular heart rate 08/03/2018 08/01/2020 Neuropathy 07/03/2017 03/02/2020 Acute right-sided low back pain without sciatica 12/19/2016 10/22/2017 detention current use of systemic steroids 06/0603/24/2018 Inflammatory arthritis 11/29/2015 9 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 Mixed dyslipidemia 05/16/2005 04/18/2016 OSTEOARTHROS NOS-L-LEG 7 documented as of this encounter (statuses as of 01/13/2023) Immunizations Name Administration Dates Next Due COVID-19 mRNA, LNP-s, No Pre serve, 2-Dose Series ([place] 4a) 07/10/2020,06/19/2020 COVID-19, LNP-s, No Preserve , Marlon-sucrose, Ages 12+ ([employer]) 07/23/2021 Covid-19, Mrna, Lnp-s, Pf, B ivalent, 30 Mcg, IM, 12 yrs and above (SEAT 4a) 02/04/2022 Pneumococcal Conjugate Vacc, 13 Valent (Prevnar) [...] encounter Miscellaneous Notes * Telephone Encounter - Adrian Olmedo [facility] - 01/13/2023 1:03 PM EDT Signed Prescriptions: Disp Refills Pantoprazole Sodium 20 MG Oral Tablet Clare*100 Ta*3 Sig: Take 1 Tablet by mouth in the morning. Authorizing Provider: DENNISE CHERY Ordering User: ADRIAN OLMEDO * Telephone Encounter - Joanne López, assistant case manager - 01/12/2023 11:15 AM EDT Did you pend patient's preferred pharmacy and medication before forwarding?yes Pharmacy: [email or web address] Pending Prescriptions: Disp Refills Pantoprazole Sodium 20 MG Oral Tablet Del*100 Ta*3 Sig: Take 1 Tablet by mouth in the morning. Last Visit: 11/06/2022 (in office), 12/25/2021 (telemedicine) Next Visit: 02/17/2023 If no future appointments scheduled, and last appointment is greater than a year ago, please schedule patient for a follow-up appointment Last date the medication was ordered: 01/29 Is this request for a controlled substance?No [...] Smith PA-C [address] [place] [address] 02/17/2023 Office Visit Family Medicine Dennise Cher[address] [place] [address] 06/04/2023 Office Visit Orthopedics Koffi Logan MD [address] [place] [address] Health Maintenance Due Date Last Done Comments [...] as of this encounter Visit Diagnoses Diagnosis Gastroesophageal reflux disease without esophagitis Esophageal reflux documented in this encounter Care Teams Jewel Flat Surfacer Relationship Specialty Start Date End Date Dennise Chery, [address] [place] [address] PCP - General Internal Medicine 08/05/22 documented as of this encounter
--- OUTSIDE RECORDS SUMMARY | 2023-04-28 13:18 | External Medical Summary | Summary of Care ---
Author Name Unknown Organization [facility] Address [address] [facility] [place] [address] Phone [phone] Care Team Providers Care Box Icer Name Role Phone Elizabeth Vanegas DO Primary Care Provider + [phone] Reason for Visit * Reason Onset Date Comments Home Health 11/26/2022 Encounter Details Date Type Department Care Team Description 11/26/2022 Telephone Family Medicine [address] [place] [address] Elizabeth Vanegas DO [address] [place] [address] [place] [address] Home Health Allergies No known active allergiesdocumented as of this encounter (statuses as of 12/01/2022) Medications Medication Sig Dispensed Refills Start Date [...] as of this encounter (statuses as of 12/01/2022) Active Problems Problem Noted Date Cardiomyopathy 03/03/2022 [...] 69 10/22/2018 Coronary artery disease invo lving [place] coronary artery of [place] heart without angina pectoris 08/10/2018 S/P angioplasty with stent 08/10/2018 History of [place] (myocardial infarction) 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 documented as of this encounter (statuses as of 12/01/2022) Resolved Problems Problem Noted Date Resolved Date Aspiration pneumonia of both lower lobes due to gastric secretions 01/24/2022 07/24/2022 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 08/26/2019 08/26/2019 SVT (supraventricular tachycardia) 10/22/2018 03/02/2020 Chronic systolic congestive heart failure 201808/01/2020 Protein-calorie malnutrition 08/10/201809/2018 Loss of weight 08/10/2018 02/16/2019 Skin abnormality 08/03/2018 03/02/2020 Irregular heart rate 08/03/2018 08/01/2020 Neuropathy 07/03/2017 03/02/2020 Acute right-sided low back pain without sciatica 12/19/2016 10/22/2017 longterm current use of systemic steroids 06/0603/24/2018 Inflammatory arthritis 11/29/2015 9 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 Mixed dyslipidemia 05/16/2005 04/18/2016 OSTEOARTHROS NOS-L-LEG 7 documented as of this encounter (statuses as of 12/01/2022) Immunizations Name Administration Dates Next Due COVID-19 mRNA, LNP-s, No Pre serve, 2-Dose Series ([employer]) 07/10/2020,06/19/2020 COVID-19, LNP-s, No Preserve , Marlon-sucrose, Ages 12+ (Pfizer) 07/23/2021 Covid-19, Mrna, Lnp-s, Pf, B ivalent, 30 Mcg, IM, 12 yrs and above ([employer]) 02/04/2022 Pneumococcal Conjugate Vacc, 13 Valent (Prevnar) [...] Telephone Encounter - Carolyn Richardson LPN - 12/01/2022 4:39 PM EDT Yes, faxed last week. * Telephone Encounter - Elizabeth Vanegas DO - 11/28/2022 8:26 AM EDT Signed. Were these faxed? * Telephone Encounter - Naa Goldsmith LPN - 11/26/2022 2:40 PM EDT Karyn from [facility] states that she faxed orders that needed to be signed one daylast week (does not know the date) and then again 11/25/22 to [phone] She would like to know if this was received It needs to be signed by PCP and faxed back to [phone] Reason for Call: Home Health Contact: Telephone Call Contact Type: Care Coordination Total Time including non face to face (minutes): 5 documented in this encounter Plan of Treatment Upcoming Encounters Date Type Specialty Care Team Description 01/12/2023 Office Visit Orthopedics Jaquan Greenfield MD [address] [place] [address] 02/17/2023 Office Visit Cardiology Elton Smith PA-C [address] [place] [address] 02/17/2023 Office Visit Family Medicine Elizabeth Vanegas DO [address] [place] [address] [place] [address] 06/04/2023 Office Visit Orthopedics Koffi Logan MD [address] [place] [address] Health Maintenance Due Date Last Done Comments Depression Screening, Annual for Pts 12 and Over 08/01/2021 08/01/2020 Influenza Vaccine (FLU shot) (#1) 2022 02/04/2022, 01/08/2021, 01/12/2020, Additional history exists DXA Scan 07/31/2023 07/30/2016, 0 08/2005, 04/20/2003, Additional history exists GFR 08/06/2023 [...] filedocumented as of this encounter Care Teams Box Icer Relationship Specialty Start Date End Date Elizabeth Vanegas, [address] [place] [id number] PCP - General Internal Medicine 08/05/22 documented as of this encounter
--- OUTSIDE RECORDS SUMMARY | 2023-04-28 13:18 | External Medical Summary | Summary of Care ---
Author Name Unknown Organization [facility] Address [address] [place] [address] Phone [phone] Care Team Providers Care Balance Recesser Name Role Phone Elizabeth Vanegas Primary Care Provider [phone] Encounter Details Date Type Department Care Team Description 12/30/2022 Documentation Home [facility] [place] [address] [place] [address] Infusion, Nurse [place] [address] [place] [address] Allergies No known active allergiesdocumented as of this encounter (statuses as of 12/30/2022) Medications Medication Sig Dispensed Refills Start Date [...] as of this encounter (statuses as of 12/30/2022) Active Problems Problem Noted Date Cardiomyopathy 03/03/2022 [...] 69 10/22/2018 Coronary artery disease invo lving [place] coronary artery of [place] heart without angina pectoris 08/10/2018 S/P angioplasty with stent 08/10/2018 History of [place] (myocardial infarction) 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 12/19/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 documented as of this encounter (statuses as of 12/30/2022) Resolved Problems Problem Noted Date Resolved Date [...] as of this encounter (statuses as of 12/30/2022) Immunizations Name Administration Dates Next Due COVID-19 mRNA, LNP-s, No Pre serve, 2-Dose Series ([employer]) 07/10/2020,06/19/2020 COVID-19, LNP-s, No Preserve , Marlon-sucrose, [...] Progress Notes * Tomás Long RN - 12/30/2022 12:17 PM EDT [facility] 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) Medication Administered: Gammagard (IVIG) Dose: 20 Grams Dosing Interval: 4 weeks Date of Infusion: 12/30/22 Patient Tolerated Therapy: Yes Next Scheduled Infusion Date: 01/27/23 Next Labs Due: (as ordered by provider) Number of Refills Remaining?: 1 Treatment completed as ordered: Yes documented in this encounter Plan of Treatment Upcoming Encounters Date Type Specialty Care Team Description 01/12/2023 Office Visit Orthopedics Jaquan Greenfield MD [address] [place] [address] 02/17/2023 Office Visit Cardiology Elton Smith PA-C [address] [place] [address] 02/17/2023 Office Visit Family Medicine Elizabeth Vanegas[address] [place] [address] 06/04/2023 Office Visit Orthopedics Koffi Logan MD [address] [place] [address] Health Maintenance Due Date Last Done Comments Depression Screening 08/01/2021 08/01/2020 Influenza Vaccine (FLU shot) (#1) [...] filedocumented as of this encounter Care Teams Balance Recesser Relationship Specialty Start Date End Date Elizabeth Vanegas, [address] [place] [address] PCP - General Internal Medicine 08/05/22 documented as of this encounter
--- OUTSIDE RECORDS SUMMARY | 2023-04-28 13:18 | External Medical Summary | Summary of Care ---
Author Name Unknown Organization [facility] Address [address] [facility] [place] [address] Phone [phone] Care Team Providers Care Ophthalmic Technician Name Role Phone VanegasPabloElizabeth Tere SCHUMACHER Primary Care Provider [phone] Reason for Visit * Reason Comments Follow Up chronic B/L knee praveen n with activity x ight knee Durolane injection today Encounter Details Date Type Department Care Team Description 11/27/2022 Office Visit Orthopaedics [address] [address] Delmis Logan MD [address] [facility] [place] [address] Primary osteoarthritis of right knee*; Primary osteoarthritis [...] right knee 60 mg IX ONCE 11/28/2022 11/28/2022 Active documented as of this encounter (statuses [...] 69 10/22/2018 Coronary artery disease invo lving [place] coronary artery of [place] heart without angina pectoris 08/10/2018 S/P angioplasty [...] mRNA, LNP-s, No Pre serve, 2-Dose Series ([employer]) 07/10/2020,06/19/2020 COVID-19, LNP-s, No Preserve , Marlon-sucrose, Ages 12+ ([employer]) 07/23/2021 Covid-19, Mrna, Lnp-s, Pf, B ivalent, 30 Mcg, IM, 12 yrs and above ([employer]) 02/04/2022 Pneumococcal Conjugate Vacc, 13 Valent (Prevnar) [...] - 11/27/2022 9:17 AM EDT Diana Chandler [id number] Diana Chandler is a 81 year old [...] gastric secretions (HCC) 01/24/2022 COVID-19 12/02/2021 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 06/06/2016 Loss [...] on file Occupational History 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 Tobacco Use Smoking status: Never Smokeless tobacco: [...] Logan MD Primary Care Sports Medicine Orthopaedics [address] [address] documented in this encounter Nursing Notes * [...] Greenfield MD [address] [place] [address] 02/17/2023 Office Visit Cardiology Elton Smith PA-C [address] [place] [address] 02/17/2023 Office Visit Family Medicine VanegasElizabeth chavez[address] [place] [address] 06/04/2023 Office Visit Orthopedics Delmis Logan MD [address] [place] [address] Health Maintenance Due Date Last Done Comments [...] leg documented in this encounter Care Teams Ophthalmic Technician Relationship Specialty Start Date End Date Elizabeth Vanegas, [address] [place] [address] PCP - General Internal Medicine 08/05/22 documented as of this encounter
--- OUTSIDE RECORDS SUMMARY | 2023-04-28 13:18 | External Medical Summary | Summary of Care ---
Author Name Unknown Organization [facility] Address [address] [facility] [place] [address] Phone [phone] Care Team Providers Care Caregivers Homecare Name Role Phone Elizabeth Vanegas DO Primary Care Provider + [phone] Reason for Visit * Reason Comments NEW PATIENT Bilateral hand weakn ess for over 10 years * Evaluate & Treat - Unlimited Visits (Within 10 days (routine)) - Authorized Specialty Diagnoses / Procedures Referred By Courtney dow Referred To Contact Orthopaedic Surgery / Orthopedics Diagnoses Chronic inflammatory demyelinating polyneuritis (HCC) Hand weakness Elizabeth Vanegas, [address] [place] [address] [place] [address] Referral ID Status Reason Start Date Expiration Date Visits Requested Visits Authorized [id number] Authorized Specialty Services Required 10/02/[phone] Encounter Details Date Type Department Care Team Description 01/12/2023 Office Visit Orthopaedics [facility] [address] [place] [address] Jaquan Greenfield MD [address] [address] Inclusion body myositis (IBM)* Allergies No known active allergiesdocumented as of this encounter (statuses as of 01/12/2023) Medications Medication Sig Dispensed Refills Start Date [...] as of this encounter (statuses as of 01/12/2023) Active Problems Problem Noted Date Cardiomyopathy 03/03/2022 [...] 70 10/22/2018 Coronary artery disease invo lving [place] coronary artery of [place] heart without angina pectoris 08/10/2018 S/P angioplasty with stent 08/10/2018 History of [place] (myocardial infarction) 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 snows 12/19/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 documented as of this encounter (statuses as of 01/12/2023) Resolved Problems Problem Noted Date Resolved Date Aspiration pneumonia of both lower lobes due to gastric secretions 01/24/2022 07/24/2022 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 08/26/2019 08/26/2019 SVT (supraventricular tachycardia) 10/22/2018 03/02/2020 Chronic systolic congestive heart failure 201808/01/2020 Protein-calorie malnutrition 08/10/201809/2018 Loss of weight 08/10/2018 02/16/2019 Skin abnormality 08/03/2018 03/02/2020 Irregular heart rate 08/03/2018 08/01/2020 Neuropathy 07/03/2017 03/02/2020 Acute right-sided low back pain without sciatica 12/19/2016 10/22/2017 proced tech current use of systemic steroids 06/0603/24/2018 Inflammatory arthritis 11/29/2015 9 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 Mixed dyslipidemia 05/16/2005 04/18/2016 OSTEOARTHROS NOS-L-LEG 7 documented as of this encounter (statuses as of 01/12/2023) Immunizations Name Administration Dates Next Due COVID-19 mRNA, LNP-s, No Pre serve, 2-Dose Series ([employer]) 07/10/2020,06/19/2020 COVID-19, LNP-s, No Preserve , Marlon-sucrose, Ages 12+ ([employer]) 07/23/2021 Covid-19, Mrna, Lnp-s, Pf, B ivalent, 30 Mcg, IM, 12 yrs and above ([employer]) 02/04/2022 Pneumococcal Conjugate Vacc, 13 Valent (Prevnar) [...] No 10/19/2014 documented as of this encounter H&P Notes * Jaquan Greenfield MD - 01/12/2023 3:38 PM EDT HISTORY & PHYSICAL EXAMINATION - Hand Surgery Name: Diana Chandler Date: 01/12/2023 Time: 3:38 PM Date and Time Patient was Seen: 01/12/2023 at 3:38 PM PRESENTING PROBLEM: Weakness in both upper extremities HPI: The patient is an 82-year-old female who is seen today at the recommendation of Dr. Koffi Logan forhand surgery consultation regarding weakness in both hands. 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 She also had electrodiagnostic testing in 2019 which showed a diffuse demyelinating polyneuropathy. She is having difficulty grasping objects. She saw Dr. Koffi Loganfor her knees and he suggested that she have a consultation with me. 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 M1A.0720 Coronary artery disease involving [place] coronary artery of [place] heart without angina pectoris I25.10 S/P angioplasty with stent Z95.820 History of [place] (myocardial infarction) I25.2 Hyperlipidemia with target LDL less than 70 E78.5 Chronic inflammatory demyelinating polyneuritis (HCC) G61.81 Actinic keratosis L57.0 Essential (primary) hypertension I10 Gastro-esophageal reflux disease without esophagitis K21.9 Primary osteoarthritis of both knees M17.0 Acquired hypothyroidism E03.9 Diastolic dysfunction I51.89 Hypertensive heart disease without heart failure I11.9 Hiatal hernia K44.9 Dysphagia R13.10 At risk for malnutrition Z91.89 Cardiomyopathy (HCC) I42.9 PAST SURGICAL HISTORY: Past Surgical History: Procedure Laterality Date MUSCLE BIOPSY, DEEP Right 08/18/2014 BIOPSY MUSCLE DEEP performed by Carlos Eduardo Berkowitz MD at OR [facility] REMOVAL OF OVARY/OVIDUCT(S) 1994 REMOVAL OF OVIDUCT 1994 SIGMOIDOSCOPY, DIAGNOSTIC 10/18/2018 diverticulosis, normal bx / INPT [facility] TOTAL HYSTERECTOMY 1994 FAMILY HISTORY: Family History Problem Relation Age of Onset Heart Disorder Mother mi age 88 Lung Disorder Father emphysema SOCIAL HISTORY: Social History Tobacco Use Smoking status: Never Smokeless tobacco: Never Vaping Use Vaping Use: Never used Substance Use Topics Alcohol use: No Drug use: No MARITAL STATUS: CURRENT MEDICATIONS: Current Outpatient Medications Medication Sig Dispense Refill [...] for vitamin B12 injections. 10 Each 0 DULoxetine HCl 60 MG Oral Capsule Delayed Release Particles (Cymbalta) Take by mouth 1 Capsule before bedtime. 30 Capsule 0 Pantoprazole Sodium 20 MG Oral Tablet Delayed Release (Protonix) Take by mouth 1 Tablet in the morning. 90 Tablet 3 Metoprolol Succinate ER 25 MG Oral Tablet [...] DAY IN THE MORNING 100 Tablet 3 No current facility-administered medications for this visit. ALLERGIES: Patient has no known allergies. ROS: Negative for GI, , Cardiac, Respioratory and Neurologic complains. Remainder of systems negative. PHYSICAL EXAMINATION: General: Well developed, well nourished. Neuro: Awake, alert, and oriented. Heart & Lungs OK Extremities: She has very little motor function below the elbows. She has good biceps and triceps. She does not have antigravity function of wrist flexors or extensors. She has no active flexion and only a flicker of active extension of her fingers. She has no active motion of her thumbs at all. She has abnormal static 2 point discrimination in all of her fingers. She has atrophy of her forearms and her hand intrinsic musculature bilaterally. IMPRESSION: Unfortunately, I do not have anything to offer this woman she has no available motors for tendon transfers. She also appears to have abnormal sensation throughout her hands. PLAN: I am not sure if a repeat neurology consultation might be of any benefit. Unfortunately, I do not think that there is anything that can be done to increase her function. 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 M1A.0720 Coronary artery disease involving [place] coronary artery of [place] heart without angina pectoris I25.10 S/P angioplasty with stent Z95.820 History of [place] (myocardial infarction) I25.2 Hyperlipidemia with target LDL less than 70 E78.5 Chronic inflammatory demyelinating polyneuritis (HCC) G61.81 Actinic keratosis L57.0 Essential (primary) hypertension I10 Gastro-esophageal reflux disease without esophagitis K21.9 Primary osteoarthritis of both knees M17.0 Acquired hypothyroidism E03.9 Diastolic dysfunction I51.89 Hypertensive heart disease without heart failure I11.9 Hiatal hernia K44.9 Dysphagia R13.10 At risk for malnutrition Z91.89 Cardiomyopathy (HCC) I42.9 Jaquan Greenfield MD documented in this encounter Nursing Notes * Karyn Pablo LPN - 01/12/2023 3:24 PM EDT Referred by Dr Vanegas for bilateral hand weakness. Pt is RHD. Karyn TAYLOR documented in this encounter Plan of Treatment Upcoming Encounters Date Type Specialty Care Team Description 02/17/2023 Office Visit Cardiology Elton Smith PA-C [address] [place] [address] 02/17/2023 Office Visit Family Medicine Elizabeth Vanegas[address] [place] [address] 06/04/2023 Office Visit Orthopedics Koffi Logan MD [address] [place] [address] Scheduled Referrals Name Type Priority Associated Diagnoses Orde r Schedule ORTHOPAEDICS REFERRAL OP Referral Within 10 days (routine) Chronic inflammatory demyelinating polyneuritis (HCC) Hand weakness Ordered: 10/02/2022 Health Maintenance Due Date Last Done Comments [...] as of this encounter Visit Diagnoses Diagnosis Inclusion body myositis (IBM)- Primary Inclusion body myositis documented in this encounter Care Teams Caregivers Homecare Relationship Specialty Start Date End Date Elizabeth Vanegas, [address] [place] [address] PCP - General Internal Medicine 08/05/22 documented as of this encounter
--- OUTSIDE RECORDS SUMMARY | 2023-04-28 13:18 | External Medical Summary | Summary of Care ---
Author Name Unknown Organization [facility] [address] [facility] [place] [address] Phone [phone] Care Team Providers Care Backrest Assembler Name Role Phone VanegasPabloElizabeth Tere SCHUMACHER Primary Care Provider [phone] Reason for Visit * Reason Comments Follow Up chronic B/L knee praveen n with activity x ight knee Durolane injection today Encounter Details Date Type Department Care Team Description 11/27/2022 Office Visit Orthopaedics [address] [address] Koffi Logan MD [address] [facility] [place] [address] Primary osteoarthritis of right knee*; Primary osteoarthritis of left knee Allergies No known active allergiesdocumented as of this encounter (statuses as of 11/27/2022) Medications Medication Sig Dispensed Refills Start Date [...] as of this encounter (statuses as of 11/27/2022) Active Problems Problem Noted Date Cardiomyopathy 03/03/2022 [...] S/P angioplasty with stent 08/10/2018 History of [place] (myocardial infarction) 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 documented as of this encounter (statuses as of 11/27/2022) Resolved Problems Problem Noted Date Resolved Date Aspiration pneumonia of both lower lobes due to gastric secretions 01/24/2022 07/24/2022 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 08/26/2019 08/26/2019 SVT (supraventricular tachycardia) 10/22/2018 03/02/2020 Chronic systolic congestive heart failure 201808/01/2020 Protein-calorie malnutrition 08/10/201809/2018 Loss of weight 08/10/2018 02/16/2019 Skin abnormality 08/03/2018 03/02/2020 Irregular heart rate 08/03/2018 08/01/2020 Neuropathy 07/03/2017 03/02/2020 Acute right-sided low back pain without sciatica 12/19/2016 10/22/2017 group home current use of systemic steroids 06/0603/24/2018 Inflammatory arthritis 11/29/2015 9 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 Mixed dyslipidemia 05/16/2005 04/18/2016 OSTEOARTHROS NOS-L-LEG 7 documented as of this encounter (statuses as of 11/27/2022) Immunizations Name Administration Dates Next Due COVID-19 mRNA, LNP-s, No Pre serve, 2-Dose Series ([employer]) 07/10/2020,06/19/2020 COVID-19, LNP-s, No Preserve , Marlon-sucrose, Ages 12+ ([employer]) 07/23/2021 Covid-19, Mrna, Lnp-s, Pf, B ivalent, 30 Mcg, IM, 12 yrs and above ([employer]) 02/04/2022 Pneumococcal Conjugate Vacc, 13 Valent (Prevnar) [...] Progress Notes * Koffi Logan MD - 11/27/2022 9:17 AM EDT Daina Chandler [id number] Diana Chandler is a 81 year old female who presents for follow[facility] to [facility] Medicine for bilateral knee [...] gastric secretions (HCC) 01/24/2022 COVID-19 12/02/2021 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 Assessment: OA right knee. Koffi Logan MD Primary Care Sports Medicine Orthopaedics [address] [address] documented in this encounter Nursing Notes * Sly Allison LPN - 11/27/2022 9:18 AM EDT F/U chronic B/L knee pain with activity x 2020 Right knee Durolane injection today Left knee Durolane 11/06/2022 Bilateral intra-articular steroid injection performed today 09/04/2022 (8 weeks and 2 days) x-ray 08/01/20 documented in this encounter Miscellaneous Notes * Addendum Note - Sly Allison LPN - 11/27/2022 3:16 PM EDTAddended by: SLY ALLISON on: 11/27/2022 03:16 PM Modules accepted: Orders documented in this encounter Plan of Treatment Upcoming Encounters Date Type Specialty Care Team Description 01/12/2023 Office Visit Orthopedics Jaquan Greenfield MD [address] [place] [address] 02/17/2023 Office Visit Cardiology Elton Smith PA-C [address] [place] [address] 02/17/2023 Office Visit Family Medicine Elizabeth Vanegas[address] [place] [address] 06/04/2023 Office Visit Orthopedics Koffi Logan MD [address] [place] [address] Health Maintenance Due Date Last Done Comments [...] leg documented in this encounter Care Teams Backrest Assembler Relationship Specialty Start Date End Date Elizabeth Vanegas[address] [place] [id number] PCP - General Internal Medicine 08/05/22 documented as of this encounter
--- OUTSIDE RECORDS SUMMARY | 2023-04-28 13:18 | External Medical Summary | Summary of Care ---
Author Name Unknown Organization [facility] Address [address] [facility] [place] [address] Phone [phone] Care Team Providers Care Inspector Publications Name Role Phone Elizabeth Vanegas DO Primary Care Provider + [phone] Reason for Visit * Reason Onset Date Comments Home Health 11/26/2022 Encounter Details Date Type Department Care Team Description 11/26/2022 Telephone Family Medicine [address] [place] [address] Elizabeth Vanegas DO [address] [place] [address] [place] [address] Home Health Allergies No known active allergiesdocumented [...] 69 10/22/2018 Coronary artery disease invo lving [place] coronary artery of [place] heart without angina pectoris 08/10/2018 S/P angioplasty with stent 08/10/2018 History of [place] (myocardial infarction) Idiopathic chronic gout of left [...] low back pain without sciatica 12/19/2016 10/22/2017 [facility] current use of systemic steroids 06/0603/24/2018 Inflammatory [...] mRNA, LNP-s, No Pre serve, 2-Dose Series ([employer]) 07/10/2020,06/19/2020 COVID-19, LNP-s, No Preserve , Marlon-sucrose, Ages 12+ (Pfizer) 07/23/2021 Covid-19, Mrna, Lnp-s, Pf, B ivalent, 30 Mcg, IM, 12 yrs and above ([employer]) 02/04/2022 Pneumococcal Conjugate Vacc, 13 Valent (Prevnar) [...] - 11/26/2022 2:40 PM EDT Karyn from [facility] states that she faxed orders that needed to be signed one daylast week (does not know the date) and then again 11/25/22 to [phone] She would like to know if this was received It needs to be signed by PCP and faxed back to [phone] Reason for Call: Home Health Contact: Telephone Call Contact Type: Care Coordination Total Time including non face to face (minutes): 5 documented in this encounter Plan of Treatment Upcoming Encounters Date Type Specialty Care Team Description 01/12/2023 Office Visit Orthopedics Jaquan Greenfield MD [address] [place] [address] 02/17/2023 Office Visit Cardiology Elton Smith PA-C [address] [place] [address] 02/17/2023 Office Visit Family Medicine Elizabeth Vanegas DO [address] [place] [address] [place] [address] 06/04/2023 Office Visit Orthopedics Koffi Logan MD [address] [place] [address] Health Maintenance Due Date Last Done Comments [...] filedocumented as of this encounter Care Teams Inspector Publications Relationship Specialty Start Date End Date Elizabeth Vanegas, [address] [place] [address] PCP - General Internal Medicine 08/05/22 documented as of this encounter
--- OUTSIDE RECORDS SUMMARY | 2023-04-28 13:18 | External Medical Summary | Summary of Care ---
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 x ight knee Durolane injection today Encounter Details Date Type Department Care Team Description 11/27/2022 Office Visit Orthopaedics [address] [address] Koffi Logan MD [address] [facility] [place] [address] Primary osteoarthritis of right knee*; Primary osteoarthritis [...] 70 10/22/2018 Coronary artery disease invo lving [place] coronary artery of [place] heart without angina pectoris 08/10/2018 S/P angioplasty with stent 08/10/2018 History of [place] (myocardial infarction) Idiopathic chronic gout of left [...] low back pain without sciatica 12/19/2016 10/22/2017 prison current use of systemic steroids 06/0603/24/2018 Inflammatory [...] mRNA, LNP-s, No Pre serve, 2-Dose Series (SinoHub) 07/10/2020,06/19/2020 COVID-19, LNP-s, No Preserve , Marlon-sucrose, Ages 12+ (Pfizer) 07/23/2021 Covid-19, Mrna, Lnp-s, Pf, B ivalent, 30 Mcg, IM, 12 yrs and above (SinoHub) 02/04/2022 Pneumococcal Conjugate Vacc, 13 Valent (Prevnar) [...] - 11/27/2022 9:17 AM EDT Diana Chandler [id number] Diana Chandler is a 81 year old female who presents for follow-up to [facility] Medicine for bilateral [...] demyelinating polyneuritis for which she follows with [facility] neurology IGIV tomorrow Gammagard (IVIG) Dose: 20Grams Dosing Interval: 4 weeks Date of Infusion: 08/04/22 Patient Tolerated Therapy: Yes Next Scheduled Infusion Date: 09/04/22 Next Labs Due: (as ordered by provider) Treatment completed as ordered: Yes Spoke with Shaniqua at 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 Tobacco Use Smoking status: Never Smokeless tobacco: [...] MD Primary Care Sports Medicine Orthopaedics [address] [address] documented in this encounter Nursing Notes * Gerri Regalado LPN - 11/27/2022 9:18 AM EDT F/U [...] Greenfield MD [address] [place] [address] 02/17/2023 Office Visit Cardiology Elton Smith PA-C [address] [place] [address] 02/17/2023 Office Visit Family Medicine Elizabeth Vaneg[address] [place] [address] 06/04/2023 Office Visit Orthopedics Koffi Logan MD [address] [place] [address] Health Maintenance Due Date Last Done Comments [...] leg documented in this encounter Care Teams Assistant Child Care Teacher Relationship Specialty Start Date End Date Elizabeth Vanegas, [address] [place] [phone] PCP - General Internal Medicine 08/05/22 documented as of this encounter
--- OUTSIDE RECORDS SUMMARY | 2023-04-28 13:18 | External Medical Summary | Summary of Care ---
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 x ight knee Durolane injection today Encounter Details Date Type Department Care Team Description 11/27/2022 Office Visit Orthopaedics [address] [address] Koffi Logan MD [address] [facility] [place] [address] Primary osteoarthritis of right knee*; Primary osteoarthritis [...] 70 10/22/2018 Coronary artery disease invo lving [place] coronary artery of [place] heart without angina pectoris 08/10/2018 S/P angioplasty with stent 08/10/2018 History of [place] (myocardial infarction) Idiopathic chronic gout of left [...] mRNA, LNP-s, No Pre serve, 2-Dose Series (Futubank) 07/10/2020,06/19/2020 COVID-19, LNP-s, No Preserve , Marlon-sucrose, Ages 12+ (Pfizer) 07/23/2021 Covid-19, Mrna, Lnp-s, Pf, B ivalent, 30 Mcg, IM, 12 yrs and above (Futubank) 02/04/2022 Pneumococcal Conjugate Vacc, 13 Valent (Prevnar) [...] - 11/27/2022 9:17 AM EDT Diana Chandler [id number] Diana Chandler is a 81 year old female who presents for follow-up to [facility] Orthopaedics and Sports Medicine for bilateral knee [...] demyelinating polyneuritis for which she follows with [facility] neurology IGIV tomorrow Gammagard (IVIG) Dose: 20Grams Dosing Interval: 4 weeks Date of Infusion: 08/04/22 Patient Tolerated Therapy: Yes Next Scheduled Infusion Date: 09/04/22 Next Labs Due: (as ordered by provider) Treatment completed as ordered: Yes Spoke with Shaniqua at [facility] Neurology patient is able to have [...] gastric secretions (HCC) 01/24/2022 COVID-19 12/02/2021 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 [place] current use of systemic steroids 06/06/2016 Loss [...] file Occupational History 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 Tobacco Use Smoking status: Never Smokeless tobacco: [...] Logan MD Primary Care Sports Medicine Orthopaedics [address] [address] documented in this encounter Nursing Notes * [...] Greenfield MD [address] [place] [address] 02/17/2023 Office Visit Cardiology Elton Smith PA-C [address] [place] [address] 02/17/2023 Office Visit Family Medicine Elizabeth Vanegas[address] [place] [address] 06/04/2023 Office Visit Orthopedics Koffi Logan MD [address] [place] [address] Health Maintenance Due Date Last Done Comments [...] leg documented in this encounter Care Teams Branch Mechanic Relationship Specialty Start Date End Date Elizabeth Vanegas[address] [place] [phone] PCP - General Internal Medicine 08/05/22 documented as of this encounter
--- OUTSIDE RECORDS SUMMARY | 2023-04-28 13:19 | External Medical Summary | Summary of Care ---
Author Name Unknown Organization [facility] Address [address] [facility] [place] [address] Phone [phone] Care Team Providers Care Deburring Technician Name Role Phone Elizabeth Vanegas DO Primary Care Provider [phone] Reason for Referral * Evaluate & Treat - Unlimited Visits (Within 30 days (routine)) - Authorized Specialty Diagnoses / Procedures Referred By Contac paloma Referred To Contact HOME CARE / Home Care Diagnoses Generalized weakness Personal history of fall Ambulatory dysfunction Doretha Maddox PA-C [address] [place] [address] [place] [address] Referral ID Status Reason Start Date Expiration Date Visits Requested Visits Authorized [id number] Authorized Specialty Services Required 11/06/2022 999 999 Question Answer Referral Priority Within 30 days (routine) Comments Documentation of Puzn-au-Ttvg Encounter Addendum Patient Name: Diana Chandler I certify that this patient is under my care and that I, or a nurse practitioner or physician's catering administrative assistant working with me, had a [id number] encounter that meets the physician gtbv-bv-slnc encounter requirements with this patient on: 11/06/22 The encounter with the patient was in whole, or in part, for the following medical condition, which is the primary reason for home health care (List medical condition): Gait dysfunction I certify that, based on my findings, the following services are medically necessary home health services: Nursing (already coming- bathing and ADL dysfunction) and Physical Therapy To provide the following care/treatments: (All hospitalists not following the patient after discharge should complete this section): Gait dysfunction, balance problems, weakness getting up and down out of a chair. ADL dysfunction Primary Care Physician to follow home care plan of care after discharge: Dr. Elizabeth Vanegas My clinical findings support the need for the above services because: Patient is weak, has pain and problems getting up and down out of a chair Further, I certify that my clinical findings support that this patient is homebound (i.e. Absences from home require considerable and taxing effort and are for medical reasons or scientology services or infrequently or of short duration when for other reason) because: Unable to drive Physician Signature: Date of Signature: Physician Printed Name: Doretha Maddox PA-C Reason for Visit * Reason Comments Acute Encounter Details Date Type Department Care Team Description 11/06/2022 Office Visit Family Medicine [address] [place] [address] Doretha Maddox PA-C [address] [place] [address] [place] [address] Acute non-recurrent sinusitis, unspecified location*; Generalized weakness; Personal history of fall; Ambulatory dysfunction Allergies No known active allergiesdocumented as of [...] MORNING 100 Tablet 3 10/22/2022 4 Active Cefdinir 300 MG Oral Capsule (Omnicef)Indications :Acute non-recurrent sinusitis, unspecified location Take 1 Capsule by mouth in the morning and 1 Capsule before bedtime. Do all this for 10 days. For 10 days.. 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 06/0603/24/2018 Inflammatory [...] mRNA, LNP-s, No Pre serve, 2-Dose Series (MoneyMail) 07/10/2020,06/19/2020 COVID-19, LNP-s, No Preserve , Marlon-sucrose, Ages 12+ (MoneyMail) 07/23/2021 Covid-19, Mrna, Lnp-s, Pf, B ivalent, [...] Sign Reading Time Taken Comments Blood Pressure 122/60 11/06/2022 1:04 PM EDT Pulse 60 11/06/2022 1:04 PM EDT Temperature 36.4 C (97.6 F) 11/06/2022 1:04 PM ED T Respiratory Rate 16 11/06/2022 1:04 PM EDT Oxygen Saturation - - Inhaled Oxygen Concentration - - Weight 55.8 kg (123 lb) 11/06/2022 1:04 PM EDT Height - - Body Mass Index 23.24 09/04/2022 2:09 PM EDT documented in this [...] as of this encounter Progress Notes * Doretha Maddox PA-C - 11/06/2022 1:12 PM EDT Images from the original note were not included. History of Present Illness Diana Chandler is a 81 year old female that presents for Acute Nursing Notes: Gin Chaney RN 11/06/22 1316 Signed Pt here for sick visit, Sore throat , Chest feels full, Stuffy nose and blocked ears (did have Diarrhea, but gone now) Also per TE , pt had asked for home PT due to her arthritis And weakness HPI: Diana Chandler is a 81 year old female presenting to the office today recent illness. Starting to resolve. She is having sinus congestion, ear fullness with 'popping' and echoing in her ears. She doesn't think she'd be able to use nasal spray because of her hand arthritis/dysfunction. Patient has had a lot of trouble getting up and down out of a chair. She has had falls as well in the recent past- she would be interested in PT. Current Outpatient Medications Medication Instructions Acetaminophen (TYLENOL) 500 mg, Oral, Q6H PRN Allopurinol (ZYLOPRIM) 100 mg, Oral, Daily(AM) amLODIPine Besylate 5 MG Oral Tablet (Norvasc) TAKE ONE TABLET BY MOUTH EVERY DAY IN THE MORNING aspirin enteric coated 81 mg, Oral, Daily(AM) Atorvastatin Calcium 40 MG Oral Tablet (Lipitor) TAKE ONE TABLET BY MOUTH EVERY DAY Cyanocobalamin 1000 MCG/ML Injection Solution (Cyanocobalamin) INJECT 1000 MCG INTO A LARGE MUSCLE EVERY 30 DAYS Diclofenac Sodium 1 % External Gel (Voltaren) Apply to topically as directed Diclofenac Sodium 1 % External Gel (Voltaren) APPLY TOPICALLY 3 TIMES A DAY NEEDED. DULoxetine (CYMBALTA) 60 mg, Oral, QHS DULoxetine HCl 30 MG Oral Capsule Delayed Release Particles (Cymbalta) TAKE ONE CAPSULE BY MOUTH EVERY DAY Ferrous Sulfate (FEOSOL) 325 mg, Oral, Daily(AM) Gabapentin (NEURONTIN) 600 mg, Oral, TID(AM/NOON/HS) Gabapentin 600 MG Oral Tablet (Neurontin) TAKE ONE TABLET BY MOUTH THREE TIMES A DAY Immune Globulin (Human) 1 GM/10ML Injection Solution (Gammagard/Gamunex- C/Gammaked) IV Piggyback, QMONTH Insulin Syringe-Needle U-100 30G X 1/2" 1 ML Use as directed for vitamin B12 injections. Levothyroxine Sodium 88 MCG Oral Tablet (Levoxyl) TAKE ONE TABLET BY MOUTH SIX DAYS PER WEEK Metoprolol Succinate ER 25 MG Oral Tablet Extended Release 24 Hour (toPROL XL) TAKE ONE-HALF TABLET BY MOUTH DAILY nitroglycerin (NITROSTAT) 0.4 MG SUBL No dose, route, or frequency recorded. pantoprazole (PROTONIX) 20 mg, Oral, Daily(AM) predniSONE 5 MG Oral Tablet (Deltasone) TAKE ONE TABLET BY MOUTH EVERY DAY IN THE MORNING Safety Syringe/Needle 25G X 5/8" 3 ML (Syringe/Needle (Disp)) Use as directed for vitamin B12 injections. Turmeric 500 mg, Oral, Daily(AM) vitamin b-12 (CYANOCOBALAMIN) 1,000 mcg, Intramuscular, 1 injection monthly Vitamin D3 2,000 Units, Oral, Daily(AM) Wheelchair Cushion Use with wheelchair to help patient rise from a seated position. Med list reviewed by me today. Physical Exam Vitals: 11/06/22 1304 Temp: 36.4 C (97.6 F) Pulse: 60 Resp: 16 BP: 122/60 Physical exam: General: Well-Developed. Well appearing. No acute distress. HENT: Normocephalic. Atraumatic. Hearing normal. B/L TM intact, pearly gama. No erythema/edema noted of B/L TM. No cerumen impaction. No drainage note. Tragus without tenderness. B/L nares with yellow discharge and mild edema. Posterior oropharynx with mild erythema. Eyes: EOMI. Sclera without erythema or icterus. No discharge. Pupils equal, round, reactive to light. Neck: No tracheal deviation. ROM intact. No stridor Cardiovascular: RRR. Normal S1/S2 noted. No murmur, rub or gallop appreciated. Pulmonary: No respiratory distress. No accessory muscle use. No adventitious sounds appreciated. Normal breath sounds. Musculoskeletal: Walking with a walker. Unable to sit down during exam because she's afraid she won't be able to get back out of the chair. I have reviewed the following results: BMP Assessment and Plan Acute non-recurrent sinusitis, unspecified location She is unable to use nasal spray. Recommended trying abx. Call if persistent symptoms - Cefdinir 300 MG Oral Capsule (Omnicef); Take 1 Capsule by mouth in the morning and 1 Capsule before bedtime. Do all this for 10 days. For 10 days.. Generalized weakness Personal history of fall Ambulatory dysfunction HH PT. - HOME HEALTH REFERRAL OP Wrap-Up F/U as scheduled or sooner PRN documented in this encounter Nursing Notes * Gin Chaney RN - 11/06/2022 1:04 PM EDT Pt here for sick visit, Sore throat , Chest feels full, Stuffy nose and blocked ears (did have Diarrhea, but gone now) Also per TE , pt had asked for home PT due to her arthritis And weakness documented in this encounter Plan of Treatment Upcoming Encounters Date Type Specialty Care Team Description 11/06/2022 Office Visit Orthopedics Koffi Logan MD [address] [place] [address] Diana Dar Ramesh 01/12/2023 Office Visit Orthopedics Jaquan Greenfield MD [address] [place] [address] 02/17/2023 Office Visit Cardiology Elton Smith PA-C [address] [place] [address] 02/17/2023 Office Visit Family Medicine Elizabeth Vanegas[address] [place] [address] Scheduled Referrals Name Type Priority Associated Diagnoses Orde r Schedule HOME HEALTH REFERRAL OP Referral Within 30 days (routine) Generalized weakness Personal history of fall Ambulatory dysfunction Ordered: 11/06/2022 Health Maintenance Due Date Last Done Comments [...] as of this encounter Visit Diagnoses Diagnosis Acute non-recurrent sinusitis, unspecified location- Primary Generalized weakness Other malaise and fatigue Personal history of fall Ambulatory dysfunction documented in this encounter Care Teams Deburring Technician Relationship Specialty Start Date End Date Elizabeth Vanegas[address] [place] [address] PCP - General Internal Medicine 08/05/22 documented as of this encounter
--- OUTSIDE RECORDS SUMMARY | 2023-04-28 13:19 | External Medical Summary | Summary of Care ---
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 Encounter Details Date Type Department Care Team Description 11/06/2022 Office Visit Orthopaedics [address] [address] Koffi Logan MD [address] [facility] [place] [address] Primary osteoarthritis of left knee*; Primary osteoarthritis [...] left knee 60 mg IX ONCE 11/06/2022 11/08/19 23 Active documented as of this encounter (statuses [...] 70 10/22/2018 Coronary artery disease invo lving [place] coronary artery of [place] heart without angina pectoris 08/10/2018 S/P angioplasty with stent 08/10/2018 History of [place] (myocardial infarction) 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 12/19/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 documented [...] back pain without sciatica 12/19/2016 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 06/0603/24/2018 Inflammatory [...] mRNA, LNP-s, No Pre serve, 2-Dose Series (Twijector) 07/10/2020,06/19/2020 COVID-19, LNP-s, No Preserve , Marlon-sucrose, Ages 12+ (Twijector) 07/23/2021 Covid-19, Mrna, Lnp-s, Pf, B ivalent, 30 Mcg, IM, 12 yrs and above (Twijector) 02/04/2022 Pneumococcal Conjugate Vacc, 13 Valent (Prevnar) [...] - 11/06/2022 2:00 PM EDT Diana Chandler [id number] Diana Chandler is a 81 year old female who presents for follow-up to [facility] Orthopaedics and Sports Medicine for bilateral [...] gastric secretions (HCC) 01/24/2022 COVID-19 12/02/2021 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 jail current use of systemic steroids 06/06/2016 Loss [...] Occupational History 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 x-ray 08/01/20 documented in this encounter Plan of Treatment Upcoming Encounters Date Type Specialty Care Team Description 11/27/2022 Office Visit Orthopedics Koffi Logan MD [address] [place] [address] 01/12/2023 Office Visit Orthopedics Jaquan Greenfield MD [address] [place] [address] 02/17/2023 Office Visit Cardiology Elton Smith PA-C [address] [place] [address] 02/17/2023 Office Visit Family Medicine Elizabeth Vanegas[address] [place] [address] Health Maintenance Due Date Last Done Comments [...] leg documented in this encounter Care Teams Boathouse Keeper Relationship Specialty Start Date End Date Elizabeth Vanegas, [address] [place] [address] PCP - General Internal Medicine 08/05/22 documented as of this encounter
--- OUTSIDE RECORDS SUMMARY | 2023-04-28 13:19 | External Medical Summary | Summary of Care ---
Author Name Unknown Organization [facility] Address [address] [facility] 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 Encounter Details Date Type Department Care Team Description 11/06/2022 Office Visit Orthopaedics [address] [address] Koffi Logan MD [address] [facility] [place] [address] Primary osteoarthritis of left knee*; Primary osteoarthritis [...] 70 10/22/2018 Coronary artery disease invo lving [place] coronary artery of [place] heart without angina pectoris 08/10/2018 S/P angioplasty with stent 08/10/2018 History of [place] (myocardial infarction) 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 12/19/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 [...] low back pain without sciatica 12/19/2016 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 06/0603/24/2018 Inflammatory [...] mRNA, LNP-s, No Pre serve, 2-Dose Series (M-Files) 07/10/2020,06/19/2020 COVID-19, LNP-s, No Preserve , Marlon-sucrose, Ages 12+ (M-Files) 07/23/2021 Covid-19, Mrna, Lnp-s, Pf, B ivalent, 30 Mcg, IM, 12 yrs and above (M-Files) 02/04/2022 Pneumococcal Conjugate Vacc, 13 Valent (Prevnar) [...] - 11/06/2022 2:00 PM EDT Diana Chandler [id number] Diana Chandler is a 81 year old female who presents for follow-up to [facility] Orthopaedics and Sports Medicine for [...] demyelinating polyneuritis for which she follows with [facility] neurology IGIV tomorrow Gammagard (IVIG) Dose: 20Grams Dosing Interval: 4 weeks Date of Infusion: 08/04/22 Patient Tolerated Therapy: Yes Next Scheduled Infusion Date: 09/04/22 Next Labs Due: (as ordered by provider) Treatment completed as ordered: Yes Spoke with Shaniqua at [facility] Neurology patient is able to have steroid [...] on file Occupational History 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 Tobacco Use Smoking status: Never Smokeless tobacco: [...] Logan MD Primary Care Sports Medicine Orthopaedics [address] [address] documented in this encounter Nursing Notes * [...] Koffi Logan MD [address] [place] [address] 01/12/2023 Office Visit Orthopedics Jaquan Greenfield MD [address] [place] [address] 02/17/2023 Office Visit Cardiology Elton Smith PA-C [address] [place] [address] 02/17/2023 Office Visit Family Medicine Elizabeth Vanegas[address] [place] [address] Health Maintenance Due Date Last Done Comments [...] leg documented in this encounter Care Teams Thread Spooler Relationship Specialty Start Date End Date Elizabeth Vanegas, [address] [place] [address] PCP - General Internal Medicine 08/05/22 documented as of this encounter
--- OUTSIDE RECORDS SUMMARY | 2023-04-28 13:19 | External Medical Summary | Summary of Care ---
Author Name Unknown Organization [facility] Address [address] [facility] [place] [address] Phone [phone] Care Team Providers Care Residential Carpenter Name Role Phone Elizabeth Vanegas DO Primary Care Provider + [phone] Reason for Visit * Reason Onset Date Comments Order Request 10/29/2022 Encounter Details Date Type Department Care Team Description 10/29/2022 Telephone Family Medicine [address] [address] Elizabeth Vanegas DO [address] [place] [address] [place] [id number] Order Request (/) Allergies No known active allergiesdocumented as of [...] 69 10/22/2018 Coronary artery disease invo lving [place] hot [...] low back pain without sciatica 12/19/2016 10/22/2017 correction current use of systemic steroids 06/0603/24/2018 Inflammatory [...] mRNA, LNP-s, No Pre serve, 2-Dose Series ([employer]) 07/10/2020,06/19/2020 COVID-19, LNP-s, No Preserve , Marlon-sucrose, Ages 12+ (Pfizer) 07/23/2021 Covid-19, Mrna, Lnp-s, Pf, B ivalent, 30 Mcg, IM, 12 yrs and above ([employer]) 02/04/2022 Pneumococcal Conjugate Vacc, 13 Valent (Prevnar) [...] encounter Miscellaneous Notes * Telephone Encounter - Gin Chaney RN - 11/05/2022 4:36 PM EDT Provider to address: na Reason for Call: Order Request (/) Contact: Telephone Call Contact Type: Orders Outcome: pt has an appt tomorrow, will discuss then Total Time including non face to face (minutes): 10 * Telephone Encounter - Carolyn Richardson LPN - 10/29/2022 4:43 PM EDT Provider to address: I called pt to see what type of service she was looking for the nurses to provide? Left message for pt to return my call. Reason for Call: Order Request (/) Contact: Telephone Call Contact Type: Follow-up Outcome: Total Time including non face to face (minutes): 5 * Telephone Encounter - NICHOLE Hedrick - 10/29/2022 3:52 PM EDT Niharika from [facility] has called because patient reached out to her to inquire about her home health benefits. Patient is looking to get home health to her home but per Niharika she needs to have covered skilled services in order for patient to qualify. Pt stated that she had a skilled service yesterday as her last one and was hoping to get more so she could get a health aide to her house. Per Niharika you must contact [facility] [place] at [phone] Please advise. documented in this encounter Plan of Treatment Upcoming Encounters Date Type Specialty Care Team Description 11/06/2022 Office Visit Orthopedics Koffi Logan MD [address] [place] [address] Diana Chandler 01/12/2023 Office Visit Orthopedics Jaquan Greenfield MD [address] [place] [address] 02/17/2023 Office Visit Cardiology Elton Smith PA-C [address] [place] [address] 02/17/2023 Office Visit Family Medicine Elizabeth Vanegas, [address] [place] [address] Health Maintenance Due Date Last Done Comments [...] filedocumented as of this encounter Care Teams Residential Carpenter Relationship Specialty Start Date End Date Elizabeth Vanegas[address] [place] [address] PCP - General Internal Medicine 08/05/22 documented as of this encounter
--- OUTSIDE RECORDS SUMMARY | 2023-04-28 13:19 | External Medical Summary | Summary of Care ---
Author Name Unknown Organization [facility] Address [address] [facility] [place] [address] Phone [phone] Care Team Providers Care Restoration Silversmith Name Role Phone Elizabeth Vanegas DO Primary Care Provider + [phone] Reason for Visit * Reason Comments Outpatient Testing Encounter Details Date Type Department Care Team Description 11/06/2022 Laboratory Laboratory [address] [place] [address] , Specimen Drop Off [address] [place] [address] Arrived Allergies No known active allergiesdocumented as of [...] 69 10/22/2018 Coronary artery disease invo lving [place] coronary artery of [place] heart without angina pectoris 08/10/2018 S/P angioplasty with stent 08/10/2018 History of [place] (myocardial infarction) Idiopathic chronic gout of left [...] low back pain without sciatica 12/19/2016 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 06/0603/24/2018 Inflammatory [...] mRNA, LNP-s, No Pre serve, 2-Dose Series ([employer]) 07/10/2020,06/19/2020 COVID-19, LNP-s, No Preserve , Marlon-sucrose, Ages 12+ ([employer]) 07/23/2021 Covid-19, Mrna, Lnp-s, Pf, B ivalent, 30 Mcg, IM, 12 yrs and above ([employer]) 02/04/2022 Pneumococcal Conjugate Vacc, 13 Valent (Prevnar) [...] Logan MD [address] [place] [address] Diana Chandler 01/12/2023 Office Visit Orthopedics Jaquan Greenfield MD [address] [place] [address] 02/17/2023 Office Visit Cardiology Elton Smith PA-C [address] [place] [address] 02/17/2023 Office Visit Family Medicine Elizabeth Vanegas[address] [place] [address] Health Maintenance Due Date Last Done Comments Depression Screening, Annual for Pts 12 and Over 08/01/2021 08/01/2020 Influenza Vaccine (FLU shot) (#1) 2022 02/04/2022, 01/08/2021, 01/12/2020, Additional history exists DXA Scan 07/31/2023 07/30/2016, 0208/2005, 04/20/2003, Additional history exists GFR 08/06/2023 08/05/2022, 1107/2021, 01/24/2022, Additional history exists TSH 08/06/2023 08/05/2022, [...] filedocumented as of this encounter Care Teams Restoration Silversmith Relationship Specialty Start Date End Date Elizabeth Vanegas, [address] [place] [address] PCP - General Internal Medicine 08/05/22 documented as of this encounter
--- OUTSIDE RECORDS SUMMARY | 2023-04-28 13:19 | External Medical Summary ---
Author Name Unknown Address Unknown Organization K01:[facility] [place] [facility] [place] [address] [place] [address] Laboratory Report Ordering Provider Test Date Status VIK BOWDEN 11/06/2022 13:36:48 Final Normal: <30 mg/g creatinine< br/>High: 30-300 mg/g creatinine
Very High: >300 mg/g creatinine
Nephrotic: >2200 mg/g creatinine Observation Date Value Abnormality Reference (Units) Status Albumin, Urine 11/06/2022 13:36:48 <1.20 (mg/dL) Final Creatinine, Urine 11/06/2022 13:36:48 27 (mg/dL) Final ALBUMIN/CREATININE RATIO, HIDE 11/06/2022 13:36:48 Uninterpretable Albumin/Creatinine ratio due to very low albumin and creatinine values. <30 (mg/g Creat) Final Performing Location [facility] [place] [address] [place] [address]
--- OUTSIDE RECORDS SUMMARY | 2023-04-28 13:19 | External Medical Summary | Summary of Care ---
Author Name Unknown Organization [facility] Address [address] [facility] [place] [address] Phone [phone] Care Team Providers Care Product Blending Supervisor Name Role Phone Elizabeth Vanegas DO Primary Care Provider + [phone] Reason for Visit * Reason Onset Date Comments Order Request 10/29/2022 Encounter Details Date Type Department Care Team Description 10/29/2022 Telephone Family Medicine [address] [address] Elizabeth Vanegas DO [address] [place] [address] [place] [phone] Order Request (/) Allergies No known active allergiesdocumented as of this encounter (statuses as of 11/05/2022) Medications Medication Sig Dispensed Refills Start Date [...] as of this encounter (statuses as of 11/05/2022) Active Problems Problem Noted Date Cardiomyopathy 03/03/2022 [...] 69 10/22/2018 Coronary artery disease invo lving [place] coronary artery of [place] heart without angina pectoris 08/10/2018 S/P angioplasty with stent 08/10/2018 History of [place] (myocardial infarction) 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 documented as of this encounter (statuses as of 11/05/2022) Resolved Problems Problem Noted Date Resolved Date [...] as of this encounter (statuses as of 11/05/2022) Immunizations Name Administration Dates Next Due COVID-19 mRNA, LNP-s, No Pre serve, 2-Dose Series ([employer]) 07/10/2020,06/19/2020 COVID-19, LNP-s, No Preserve , Marlon-sucrose, Ages 12+ (Pfizer) 07/23/2021 Covid-19, Mrna, Lnp-s, Pf, B ivalent, 30 Mcg, IM, 12 yrs and above ([employer]) 02/04/2022 Pneumococcal Conjugate Vacc, 13 Valent (Prevnar) [...] - 10/29/2022 3:52 PM EDT Niharika from [facility] has called because patient reached out to [...] her house. Per Niharika you must contact [facility] [place] at [phone] Please advise. documented in this encounter Plan of Treatment Upcoming Encounters Date Type Specialty Care Team Description 11/06/2022 Office Visit Family Medicine Doretha Maddox PA-C [address] [place] [address] [place] [phone] 11/06/2022 Office Visit Orthopedics Koffi Logan MD [address] [place] [address] 01/12/2023 Office Visit Orthopedics Jaquan Greenfield MD [address] [place] [address] 02/17/2023 Office Visit Cardiology Elton Smith PA-C [address] [place] [address] 02/17/2023 Office Visit Family Medicine Elizabeth Vanegas[address] [place] [address] Health Maintenance Due Date Last Done Comments [...] filedocumented as of this encounter Care Teams Product Blending Supervisor Relationship Specialty Start Date End Date Elizabeth Vanegas[address] [place] [address] PCP - General Internal Medicine 08/05/22 documented as of this encounter
--- OUTSIDE RECORDS SUMMARY | 2023-04-28 13:20 | External Medical Summary | Summary of Care ---
Author Name Unknown Organization [facility] Address [address] [place] [address] Phone [phone] Care Team Providers Care Recreation Aide Name Role Phone Elizabeth Vanegas Primary Care Provider [phone] Encounter Details Date Type Department Care Team Description 11/04/2022 Documentation Home [facility] [place] [address] [place] [address] Infusion, Nurse [place] [address] [place] [address] Allergies No known active allergiesdocumented as of this encounter (statuses as of 11/04/2022) Medications Medication Sig Dispensed Refills Start Date [...] as of this encounter (statuses as of 11/04/2022) Active Problems Problem Noted Date Cardiomyopathy 03/03/2022 [...] 69 10/22/2018 Coronary artery disease invo lving [place] coronary artery of [place] heart without angina pectoris 08/10/2018 S/P angioplasty with stent 08/10/2018 History of [place] (myocardial infarction) 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 12/19/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 documented as of this encounter (statuses as of 11/04/2022) Resolved Problems Problem Noted Date Resolved Date [...] as of this encounter (statuses as of 11/04/2022) Immunizations Name Administration Dates Next Due COVID-19 mRNA, LNP-s, No Pre serve, 2-Dose Series ([employer]) 07/10/2020,06/19/2020 COVID-19, LNP-s, No Preserve , Marlon-sucrose, Ages 12+ (Pfizer) 07/23/2021 Covid-19, Mrna, Lnp-s, Pf, B ivalent, 30 Mcg, IM, 12 yrs and above ([employer]) 02/04/2022 Pneumococcal Conjugate Vacc, 13 Valent (Prevnar) [...] Progress Notes * Tomás Long RN - 11/04/2022 12:29 PM EDT [facility] 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) Medication Administered: Gammagard (IVIG) Dose: 20G Dosing Interval: 4 weeks Date of Infusion: 11/04/22 Patient Tolerated Therapy: Yes Next Scheduled Infusion Date: 12/02/22 Next Labs Due: (as ordered by provider) Treatment completed as ordered: Yes documented in this encounter Plan of Treatment Upcoming Encounters Date Type Specialty Care Team Description 11/06/2022 Office Visit Orthopedics Koffi Logan MD [address] [place] [address] 01/12/2023 Office Visit Orthopedics Jaquan Greenfield MD [address] [place] [address] 02/17/2023 Office Visit Cardiology Elton Smith PA-C [address] [place] [address] 02/17/2023 Office Visit Family Medicine Elizabteh Vanegas[address] [place] [address] Health Maintenance Due Date Last Done Comments [...] filedocumented as of this encounter Care Teams Recreation Aide Relationship Specialty Start Date End Date Elizabeth Vanegas, [address] [place] [address] PCP - General Internal Medicine 08/05/22 documented as of this encounter
[2023-04-28 13:37] LABS: Albumin Globulin Ratio 1.1 (0.9-2); BUN Creatinine Ratio 34.8 (10-20); Bilirubin,Total 0.6 mg/dl (0.2-1.0); Calcium 9.4 mg/dl (8.6-10.3); Creatinine Clr Calc Pharmacy 55.8 ml/min; Est GFR (African American) 94.7 ml/min; Est GFR (Non-African American) 81.7 ml/min; Globulin 3.7 gm/dl (2.5-4.0); Potassium 3.6 mmol/L (3.5-5.1); Total Protein 7.7 gm/dl (6.0-8.3)
[2023-04-28] MEDS ORDERED: OPTIRAY 320 500ml IV ONE (14:18)
--- NOTE | 2023-04-28 14:40 | CT Scan Report ---
ABDOMEN AND PELVIS CT WITH IV CONTRAST CT DOSE: 1010.83 mGy.cm HISTORY: Acute generalized abdominal pain with diarrhea abd pain + gaurding, diffuse, diarrhea TECHNIQUE: Multiaxial CT images of the abdomen and pelvis were performed following the IV administrat ion of 94 cc of Optiray, A dose lowering technique was utilized adhering to the principles of ALARA. COMPARISON STUDY: 01/16/2022 FINDINGS: Mild cardiomegaly. Extensive coronary artery calcifications. Mild linear subsegmental bibas ilar atelectasis with right hemidiaphragmatic elevation. No free air. Unremarkable spleen, atrophic p ancreas and adrenal glands. Stented gallbladder with layering cholelithiasis in the gallbladder fundu s. Mild fundal gallbladder wall thickening. Trace edema/fluid adjacent to the gallbladder fundus. Unr emarkable liver. Patent portal vein. 1.9 cm cyst of the inferior pole right kidney. 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 Symmetric enhancement kidneys. No hydronephrosis. Decompressed urinary bladder with mild wall thickening. Hysterectomy. Atherosclerosis of the aorta without aneurysm. No lymphadenopathy. Atr ophy of the proximal thigh musculature. Moderate sized hiatal hernia with distal esophageal wall thickening. Left upper quadrant splenule aga in noted. Colonic diverticulosis. Trace pelvic ascites. There is a 6 mm metallic density focus within the cecum near the base of the appendix on image 257. The appendix is air and fluid filled, dilated and inflamed measuring up to 1.2 cm transversely with adjacent periappendiceal inflammation. No drain able fluid collections. There is a 6 mm mid appendiceal appendicolith. Circumferential wall thickenin g with mucosal hyperemia involves loops of distal ileum. Fluid-filled cecum and distal small bowel lo ops without high-grade obstruction. No acute fracture. Degenerative changes of the spine, pelvis and hips. IMPRESSION: 1. Acute appendicitis with subcentimeter appendicolith. Foci of air within the mid appendiceal lumen may be secondary to intraluminal necrosis. No drainable fluid collection or pneumoperitoneum. 2. Indeterminate subcentimeter metallic density focus within the cecum near the base of the appendix. 3. Fluid-filled cecum and loops of ileum with mucosal hyperemia of the terminal ileum, likely reactiv e. 4. Cholelithiasis with gallbladder distention and mild fundal gallbladder wall thickening, also likel y reactive. Findings could be correlated with ultrasound if further clinical concern. 5. Moderate-sized hiatal hernia. 6. Additional findings as above. ACT 112: Negative or not required by law. The above report was generated using voice recognition software. It may contain grammatical, syntax o r spelling errors. Electronically signed by: Carlos Shine M.D. 04/28/2023 2:39 PM
[2023-04-28] MEDS ORDERED: PIPERACILLIN/TAZOBACTAM 4.5 GM/100 ML BAG IV ONE (14:53)
--- NOTE | 2023-04-28 15:24 | History & Physical Report ---
Date of Service April 28, 2023 Assessment & Plan (1) Acute appendicitis: Plan 82-year-old woman with acute appendicitis. I reviewed the imaging with the radiologist. I discussed with her the risks and benefits of a laparoscopic, possible open appendectomy. All her questions were answered, she is agreeable to proceed. She will be admitted to the medicine service following the surgery. Consent has been obtained, we will take her to the operating room at the earliest convenience. History of Present Illness Primary Care Provider: Elizabeth Vanegas DO 82-year-old woman presents with a 12-hour history of severe lower abdominal pain, sweats and chills, and diarrhea. She has had a few day history of headaches, malaise, aches and pains. She denies nausea or vomiting. She last ate yesterday. She had diarrhea this morning. Allergies Allergy/AdvReac Type Severity Reaction Status Date / Time No Known Drug Allergies Allergy Verified 04/28/23 14:44 Home Medications Medication Instructions Recorded Confirmed Type allopurinol 100 mg tablet 100 mg PO QAM 08/03/18 04/28/23 History cholecalciferol (vitamin D3) 25 2,000 unit PO DAILY 08/03/18 04/28/23 History mcg (1,000 unit) tablet (Vitamin D3) cyanocobalamin (vitamin B-12) 1,000 mcg IM MONTHLY 08/03/18 04/28/23 History 1,000 mcg/mL injection solution duloxetine 30 mg capsule,delayed 30 mg PO HS 08/03/18 04/28/23 History release (Cymbalta) gabapentin 600 mg tablet 600 mg PO TID 08/03/18 04/28/23 History (Neurontin) acetaminophen 500 mg tablet 500 mg PO QID PRN Pain 10/11/18 04/28/23 History (Tylenol Extra Strength) aspirin 81 mg tablet,delayed 81 mg PO QAM 10/11/18 04/28/23 History release (Ecotrin Low Strength) atorvastatin 40 mg tablet 40 mg PO HS #90 tabs 06/06/19 04/28/23 Rx diclofenac sodium 1 % topical gel 1 ea topical UD 01/16/22 04/28/23 History ferrous sulfate 325 mg (65 mg 325 mg PO QAM 01/16/22 04/28/23 History iron) tablet metoprolol succinate 25 mg 25 mg PO DAILY 01/16/22 04/28/23 History tablet,extended release 24 hr pantoprazole 20 mg tablet,delayed 20 mg PO QAM 01/16/22 04/28/23 History release prednisone 5 mg tablet 5 mg PO DAILY 01/16/22 04/28/23 History turmeric root extract 500 mg 500 mg PO QAM 01/16/22 04/28/23 History capsule amlodipine 5 mg tablet (Norvasc) 5 mg PO QAM #1 tab 01/22/22 04/28/23 Rx levothyroxine 88 mcg tablet 88 mcg PO 6XWK 04/28/23 04/28/23 History Past Med/Surg History Medical History (Updated 04/28/23 @ 15:25 by Moises Witt MD) History of PR (myocardial infarction) Coronary artery disease CHF (congestive heart failure) Severe sepsis Inflammatory arthritis Gout Inclusion body myositis 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 HLD (hyperlipidemia) Neuropathy Surgical History S/P cardiac cath History of hysterectomy Family History Other Coronary heart disease Social History Smoking Status: Never smoker Second Hand Exposure: No; Do You Dip or Chew Tobacco: No; Hx Alcohol Use: No Hx Substance Use: No Preferred Language: Georgian Communication Ability: Effective Air Brake Rigger Required: No Beliefs That Will Affect Care: None Current Living Situation: Alone Feels Safe at Home: Yes Assistive Devices: Cane, Stair Lift, Walker and Wheelchair Review of Systems Review of Systems: All systems reviewed & are unremarkable except as noted in HPI & below Physical Exam Constitutional: WD/WN, vitals as above Eyes: PERRL, conjunctivae normal, anicteric sclerae Neck: trachea midline, no thyromegaly Respiratory: normal respiratory effort; no respiratory distress and no labored breathing Cardiovascular: Rate/Rhythm: regular rate and regular rhythm Gastrointestinal (Abdomen): Inspection/Auscultation: abdomen normal to inspection; abdomen not distended Percussion/Palpation: + abdomen tender (RLQ) and abdomen soft; no guarding and abdomen not rigid Skin: no rashes, warm and dry Psychiatric: A+Ox3, euthymic affect Results & Data Results & Data Vital Signs (Past 12 Hours) Vital Signs Temp Pulse Resp BP BP Pulse Ox O2 Del Method 04/28/23 14:26 135/70 04/28/23 11:34 129/95 04/28/23 10:38 36.8 C 92 H 14 158/99 H 93 Room Air Laboratory Results 04/28/23 04/28/23 04/28/23 Range/Units 12:40 12:26 10:30 WBC 14.06 H (4.8-10.8) K/ul RBC 4.49 (4.20-5.40) M/uL Hgb 14.6 (12.0-16.0) g/dl Hct 43.8 (37.0-47.0) % MCV 97.6 (80.0-100.0) fL MCH 32.5 (25.0-34.0) pg MCHC 33.3 (32.0-36.0) g/dL RDW Std Deviation 52.1 H (36.4-46.3) fL RDW Coeff of Danya 14.5 (11.5-14.5) % Plt Count 295 (130-400) K/uL MPV 10.6 (9.4-12.4) fL Immature Gran % (Auto) 0.5 % Neut % (Auto) 85.5 % Lymph % (Auto) 8.4 % [place] % (Auto) 4.6 % Eos % (Auto) 0.7 % Baso % (Auto) 0.3 % Neut # (Auto) 12.03 H (1.40-6.50) K/uL Lymph # (Auto) 1.18 L (1.20-3.40) K/uL [place] # (Auto) 0.64 H (0.11-0.59) K/uL Eos # (Auto) 0.10 (0.00-0.50) K/uL Baso # (Auto) 0.04 (0.00-0.20) K/uL Immature Gran # (Auto) 0.07 (0.01-0.20) K/uL Sodium 137 (136-145) mmol/L Potassium 3.6 (3.5-5.1) mmol/L Chloride 104 (98-107) mmol/L Carbon Dioxide 19 L (21-32) mmol/L Anion Gap 14 H (3-11) BUN 23 (6-23) mg/dl Creatinine 0.66 (0.6-1.2) mg/dl Est Cr Clr Drug Dosing 55.8 ml/min Est GFR ( Amer) 94.7 ml/min Est GFR (Non-Af Amer) 81.7 ml/min BUN/Creatinine Ratio 34.8 H (10-20) Glucose 122 H (70-99(Fasting)) mg/dl Calcium 9.4 (8.6-10.3) mg/dl Total Bilirubin 0.6 (0.2-1.0) mg/dl AST 21 (13-39) U/L ALT 13 (7-52) U/L Alkaline Phosphatase 78 (34-104) U/L Total Protein 7.7 (6.0-8.3) gm/dl Albumin 4.0 (3.4-5.0) gm/dl Globulin 3.7 (2.5-4.0) gm/dl Albumin/Globulin Ratio 1.1 (0.9-2) Urine Color Dark Yellow Urine Appearance Clear (Clear) Urine pH 5.0 (4.5-7.5) Ur Specific [place] 1.022 (1.000-1.030) Urine Protein 1+ H (Negative) Urine Glucose (UA) Negative (Negative) Urine Ketones Trace H (Negative) Urine Blood Negative (Negative) Urine Nitrite Negative (Negative) Urine Bilirubin Negative (Negative) Urine Urobilinogen Negative (Negative) Ur Leukocyte Esterase Trace H (Negative) Urine WBC (Auto) 5-10 H (0-5) /hpf Urine RBC (Auto) 0-4 (0-4) /hpf U Hyaline Cast (Auto) 1-5 (0-5) /lpf U Epithel Cells (Auto) 0-5 (0-5) /lpf Urine Bacteria (Auto) 4+ H (Negative) Adenovirus (PCR) Not Detected (NotDetected) B. pertussis DNA (PCR) Not Detected (NotDetected) B.parapertussis DNA PCR Not Detected (NotDetected) C. pneumoniae DNA (PCR) Not Detected (NotDetected) Coronavirus OC43 (PCR) Not Detected (NotDetected) Coronavirus HKU1 (PCR) Not Detected (NotDetected) Coronavirus 229E (PCR) Not Detected (NotDetected) SARS-CoV-2 (PCR) Not Detected (NotDetected) Coronavirus NL63 (PCR) Not Detected (NotDetected) Human Metapneumovir PCR Not Detected (NotDetected) Influenza Type A (PCR) Not Detected (NotDetected) Influenza Type B (PCR) Not Detected (NotDetected) M. pneumoniae (PCR) Not Detected (NotDetected) Parainfluenza 1 (PCR) Not Detected (NotDetected) Parainfluenza 2 (PCR) Not Detected (NotDetected) Parainfluenza 3 (PCR) Not Detected (NotDetected) Parainfluenza 4 (PCR) Not Detected (NotDetected) RSV (PCR) Not Detected (NotDetected) Entero/Rhino (PCR) Not Detected (NotDetected) Diagnostic Findings ABDOMEN AND PELVIS CT WITH IV CONTRAST CT DOSE: 1010.83 mGy.cm HISTORY: Acute generalized abdominal pain with diarrhea abd pain + gaurding, diffuse, diarrhea TECHNIQUE: Multiaxial CT images of the abdomen and pelvis were performed following the IV administration of 94 cc of Optiray, A dose lowering technique was utilized adhering to the principles of ALARA. COMPARISON STUDY: 01/16/2022 FINDINGS: Mild cardiomegaly. Extensive coronary artery calcifications. Mild linear subsegmental bibasilar atelectasis with right hemidiaphragmatic elevation . No free air. Unremarkable spleen, atrophic pancreas and adrenal glands. Stented gallbladder with layering cholelithiasis in the gallbladder fundus. Mild fundal gallbladder wall thickening. Trace edema/fluid adjacent to the gallbladder fundus. Unremarkable liver. Patent portal vein. 1.9 cm cyst of the inferior pole right kidney. 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 Symmetric enhancement kidneys. No hydronephrosis. Decompressed urinary bladder with mild wall thickening. Hysterectomy. Atherosclerosis of the aorta without aneurysm. No lymphadenopathy. Atrophy of the proximal thigh musculature. Moderate sized hiatal hernia with distal esophageal wall thickening. Left upper quadrant splenule again noted. Colonic diverticulosis. Trace pelvic ascites. There is a 6 mm metallic density focus within the cecum near the base of the appendix on image 257. The appendix is air and fluid filled, dilated and inflamed measuring up to 1.2 cm transversely with adjacent periappendiceal inflammation. No drainable fluid collections. There is a 6 mm mid appendiceal appendicolith. Circumferential wall thickening with mucosal hyperemia involves loops of distal ileum. Fluid-filled cecum and distal small bowel loops without high-grade obstruction. No acute fracture. Degenerative changes of the spine, pelvis and hips. IMPRESSION: 1. Acute appendicitis with subcentimeter appendicolith. Foci of air within the mid appendiceal lumen may be secondary to intraluminal necrosis. No drainable fluid collection or pneumoperitoneum. 2. Indeterminate subcentimeter metallic density focus within the cecum near the base of the appendix. 3. Fluid-filled cecum and loops of ileum with mucosal hyperemia of the terminal ileum, likely reactive. 4. Cholelithiasis with gallbladder distention and mild fundal gallbladder wall thickening, also likely reactive. Findings could be correlated with ultrasound if further clinical concern. 5. Moderate-sized hiatal hernia. 6. Additional findings as above. ACT 112: Negative or not required by law. (1) Acute appendicitis Acute appendicitis type: with localized peritonitis Appendicitis gangrene presence: without gangrene Appendicitis perforation presence: without perforation Appendicitis abscess presence: without abscess Qualified Code(s): K35.30 - Acute appendicitis with localized peritonitis, without perforation or gangrene
[2023-04-28] MEDS ORDERED: ePHEDrine sulfate 50 MG/ML AMP IV PRN (15:25)
[2023-04-28] MEDS ORDERED: ATROPINE SULFATE 0.1 MG/ML 10ML SYR IV PRN (15:25)
[2023-04-28] MEDS ORDERED: fentaNYL citrate PF 100 MCG/2 ML VIAL IV PRN (15:25)
[2023-04-28] MEDS ORDERED: ONDANSETRON INJ 2 MG/ML 2 ML VIAL IV PRN ×3 (15:25→19:57)
[2023-04-28] MEDS ORDERED: BUPIVACAINE/EPINEPHRINE 0.5% MPF 1:200,000 30 ML VIAL ONE (15:27)
[2023-04-28] MEDS ORDERED: ONDANSETRON INJ 2 MG/ML 2 ML VIAL ONE (15:28)
[2023-04-28] MEDS ORDERED: PROPOFOL IV EMULSION 10 MG/ML 20 ML VIAL IV ONE (15:28)
[2023-04-28] MEDS ORDERED: ROCURONIUM BROMIDE 10 MG/ML 5 ML VIAL IV ONE (15:28)
[2023-04-28] MEDS ORDERED: LIDOCAINE 2% 2 ML VIAL/AMP(20MG/ML) INFIL ONE (15:28)
[2023-04-28] MEDS ORDERED: fentaNYL citrate PF 100 MCG/2 ML VIAL ONE (15:28)
[2023-04-28] MEDS ORDERED: DEXAMETHASONE SOD INJ 4 MG/ML VIAL ONE (15:28)
--- NOTE | 2023-04-28 15:31 | Anesthesiology Consultation ---
Date of Service April 28, 2023 Assessment & Plan (1) Encounter for pre-operative examination: Chart Review Chart Review: Acceptable Risk for Surgery and Patient NOT seen in Pre Admission Testing Consults Requested none History Surgery Operation Date: 04/28/23 07:55 Proposed Procedures p Laparoscopic Appendectomy - Moises Witt MD Height/Weight Height: 5 ft 4 in Weight: 64.1 kg Allergies Allergy/AdvReac Type Severity Reaction Status Date / Time No Known Drug Allergies Allergy Verified 04/28/23 14:44 Medications Home Medications Medication Instructions Recorded Confirmed Last Taken allopurinol 100 mg tablet 100 mg PO QAM 08/03/18 04/28/23 10/10/18 cholecalciferol (vitamin D3) 25 2,000 unit PO DAILY 08/03/18 04/28/23 10/10/18 08:00 mcg (1,000 unit) tablet (Vitamin D3) cyanocobalamin (vitamin B-12) 1,000 mcg IM MONTHLY 08/03/18 04/28/23 09/27/18 1,000 mcg/mL injection solution duloxetine 30 mg capsule,delayed 30 mg PO HS 08/03/18 04/28/23 10/09/18 release (Cymbalta) gabapentin 600 mg tablet 600 mg PO TID 08/03/18 04/28/23 10/10/18 08:00 (Neurontin) acetaminophen 500 mg tablet 500 mg PO QID PRN Pain 10/11/18 04/28/23 10/11/18 (Tylenol Extra Strength) aspirin 81 mg tablet,delayed 81 mg PO QAM 10/11/18 04/28/23 10/10/18 release (Ecotrin Low Strength) atorvastatin 40 mg tablet 40 mg PO HS #90 tabs 06/06/19 04/28/23 Unknown diclofenac sodium 1 % topical gel 1 ea topical UD 01/16/22 04/28/23 Unknown ferrous sulfate 325 mg (65 mg 325 mg PO QAM 01/16/22 04/28/23 Unknown iron) tablet metoprolol succinate 25 mg 25 mg PO DAILY 01/16/22 04/28/23 Unknown tablet,extended release 24 hr pantoprazole 20 mg tablet,delayed 20 mg PO QAM 01/16/22 04/28/23 Unknown release prednisone 5 mg tablet 5 mg PO DAILY 01/16/22 04/28/23 Unknown turmeric root extract 500 mg 500 mg PO QAM 01/16/22 04/28/23 Unknown capsule amlodipine 5 mg tablet (Norvasc) 5 mg PO QAM #1 tab 01/22/22 04/28/23 Unknown levothyroxine 88 mcg tablet 88 mcg PO [id number] 04/28/23 04/28/23 Unknown Active Medications Generic Name Dose Route Start Last Admin Trade Name Freq PRN Reason Stop Dose Admin Piperacillin Sod/Tazobactam Sod 4.5 gm in 100 mls @ 200 mls/hr 04/28/23 14:53 04/28/23 15:23 Zosyn IV 04/28/23 15:22 200 mls/hr NOW ONE Administration Past Medical History Medical History (Updated 04/28/23 @ 15:30 by Justus Castillo MD) Encounter for pre-operative examination History of MA (myocardial infarction) Coronary artery disease CHF (congestive heart failure) Severe sepsis Inflammatory arthritis Gout Inclusion body myositis 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 HLD (hyperlipidemia) Neuropathy Past Family History Family History Other Coronary heart disease Past Surgical History Surgical History S/P cardiac cath History of hysterectomy Social History Smoking Status: Never smoker Do You Dip or Chew Tobacco: No Hx Alcohol Use: No Hx Substance Use: No substance use type: does not use Physical Exam Vital Signs Last Vital Signs Temp 36.8 C 04/28/23 10:38 Pulse 92 H 04/28/23 10:38 Resp 14 04/28/23 10:38 BP 135/70 04/28/23 14:26 Pulse Ox 93 04/28/23 10:38 O2 Del Method Room Air 04/28/23 10:38 Testing Laboratory Results 04/28/23 12:40 04/28/23 12:40 Urine Color Dark Yellow 04/28/23 12:26 Urine Appearance Clear (Clear) 04/28/23 12:26 Urine pH 5.0 (4.5-7.5) 04/28/23 12:26 Ur Specific [place] 1.022 (1.000-1.030) 04/28/23 12:26 Urine Protein 1+ (Negative) H 04/28/23 12:26 Urine Glucose (UA) Negative (Negative) 04/28/23 12:26 Urine Ketones Trace (Negative) H 04/28/23 12:26 Urine Nitrite Negative (Negative) 04/28/23 12:26 Ur Leukocyte Esterase Trace (Negative) H 04/28/23 12:26 Urine WBC (Auto) 5-10 /hpf (0-5) H 04/28/23 12:26 Urine RBC (Auto) 0-4 /hpf (0-4) 04/28/23 12:26 U Hyaline Cast (Auto) 1-5 /lpf (0-5) 04/28/23 12:26 U Epithel Cells (Auto) 0-5 /lpf (0-5) 04/28/23 12:26 Urine Bacteria (Auto) 4+ (Negative) H 04/28/23 12:26 Electrocardiogram Date: 01/16/22 DICTATED BY: Peterson Leon MD Test Reason : Blood Pressure : / mmHG Vent. Rate : 057 BPM Atrial Rate : 057 BPM P-R Int : 136 ms QRS Dur : 088 ms QT Int : 420 ms P-R-T Axes : 065 -01 147 degrees QTc Int : 408 ms Sinus bradycardia Possible Left atrial enlargement Inferior infarct , age undetermined Anterior infarct (cited on or before 03-AUG-2018) Abnormal ECG When compared with ECG of 16-JAN-2022 16:33, Inferior infarct is now Present Confirmed by Peterson Leon ([id number]) on 01/18/2022 4:46:08 PM Chest X-Ray Date: 04/28/23 XR chest 1V portable CLINICAL HISTORY: flu like symptoms TECHNIQUE: Single frontal radiograph of the chest was obtained. Comparison: Comparison is made to chest radiograph 01/17/2012 FINDINGS: No lines and tubes are seen. Calcified aortic knob is seen. The lungs are clear. No evidence of pleural effusion or pneumothorax. IMPRESSION: No acute chest disease. Echocardiogram Date: 01/19/22 LV is grossly normal size. Mild LVH LV systolic function is normal. EF 55-60% Mild to moderate mitral regurg. LA is mildly dilated. RA size is normal RV systolic function is normal.
[2023-04-28] MEDS ORDERED: SUGAMMADEX SODIUM 200 MG/2 ML VIAL IV ONE (15:32)
--- NOTE | 2023-04-28 16:05 | History & Physical Report ---
Date of Service April 28, 2023 Assessment & Plan (1) Acute appendicitis: (2) UTI (urinary tract infection): (3) Coronary artery disease: (4) Inclusion body myositis: (5) Hypertension: (6) HLD (hyperlipidemia): (7) Neuropathy: Plan This is an 82-year-old female with significant past medical history of CAD with history of coronary angioplasty, HTN, diastolic dysfunction, history of cardiomyopathy, HLD, CIDP, chronic prednisone therapy secondary to severe osteoarthritis, hypothyroidism, inclusion body myositis, GERD who presents to ED secondary to abdominal pain, nausea and diarrhea since 3 AM. Abdominal pain Acute Appendicitis Probable early sepsis w/ leukocytosis, tacyhcardia pt was seen and examined by general surgery in ED plan to undergo laparoscopic appendectomy emergently pt was seen by medicine pre operatively continue IV zosyn empirically for now post operatively pt will be admitted to med/surg will continue IVF + KCL post operatively pain and diet per general surgery Possible UTI abnormal UA currently on IV zosyn await urine culture obtain blood culture Cholelithiasis --CT a/p:Cholelithiasis with gallbladder distention and mild fundal gallbladder wall thickening, also likely reactive. Findings could be correlated with ultrasound if further clinical concern. 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 Vanegas Dispo: post operatively will be admitted to med/surg, likely to remain hospitalized 1-2 days, will need PT/OT prior to d/c Pt was seen and examined in collaboration with Dr. castellanos, please see addendum A total of 44 minutes was spent coordinating, documenting, and providing care for this patient excluding time spent in the performance of separately billed services. This included personally viewing all current laboratories and imaging studies, medication reconciliation, outpatient chart review, and discussion with specialists. History of Present Illness Chief Complaint: Abdominal pain, nausea and diarrhea since 3 a.m. Primary Care Provider: Elizabeth Vanegas DO This is an 82-year-old female with significant past medical history of CAD with history of coronary angioplasty, HTN, diastolic dysfunction, history of cardiomyopathy, HLD, CIDP, chronic prednisone therapy secondary to severe osteoarthritis, hypothyroidism, inclusion body myositis, GERD who presents to ED secondary to abdominal pain, nausea and diarrhea since 3 AM. She states that symptoms woke her up abruptly this morning. She had nausea, diarrhea and right lower quadrant abdominal pain. Her symptoms were severe and persisted and therefore she presented to ED. She denies any documented fever, chills, sweats, lightheadedness, dizziness, chest pain, shortness of breath, melena, hematochezia, change in urinary habits. In ED patient underwent CT scan of abdomen pelvis which showed acute appendicitis with subcentimeter appendicolith. Also noted were fluid-filled cecum and loops of ileum with mucosal hyperemia of the terminal ileum which is likely reactive. General surgery was consulted and plan is to undergo acute appendectomy. She received IV Zosyn in ED for broad- spectrum antibiotics. Allergies Allergy/AdvReac Type Severity Reaction Status Date / Time No Known Drug Allergies Allergy Verified 04/28/23 14:44 Home Medications Medication Instructions Recorded Confirmed Type allopurinol 100 mg tablet 100 mg PO QAM 08/03/18 04/28/23 History cholecalciferol (vitamin D3) 25 2,000 unit PO DAILY 08/03/18 04/28/23 History mcg (1,000 unit) tablet (Vitamin D3) cyanocobalamin (vitamin B-12) 1,000 mcg IM MONTHLY 08/03/18 04/28/23 History 1,000 mcg/mL injection solution duloxetine 30 mg capsule,delayed 30 mg PO HS 08/03/18 04/28/23 History release (Cymbalta) gabapentin 600 mg tablet 600 mg PO TID 08/03/18 04/28/23 History (Neurontin) acetaminophen 500 mg tablet 500 mg PO QID PRN Pain 10/11/18 04/28/23 History (Tylenol Extra Strength) aspirin 81 mg tablet,delayed 81 mg PO QAM 10/11/18 04/28/23 History release (Ecotrin Low Strength) atorvastatin 40 mg tablet 40 mg PO HS #90 tabs 06/06/19 04/28/23 Rx diclofenac sodium 1 % topical gel 1 ea topical UD 01/16/22 04/28/23 History ferrous sulfate 325 mg (65 mg 325 mg PO QAM 01/16/22 04/28/23 History iron) tablet metoprolol succinate 25 mg 25 mg PO DAILY 01/16/22 04/28/23 History tablet,extended release 24 hr pantoprazole 20 mg tablet,delayed 20 mg PO QAM 01/16/22 04/28/23 History release prednisone 5 mg tablet 5 mg PO DAILY 01/16/22 04/28/23 History turmeric root extract 500 mg 500 mg PO QAM 01/16/22 04/28/23 History capsule amlodipine 5 mg tablet (Norvasc) 5 mg PO QAM #1 tab 01/22/22 04/28/23 Rx levothyroxine 88 mcg tablet 88 mcg PO 6XWK 04/28/23 04/28/23 History Past Med/Surg History Medical History Encounter for pre-operative examination History of MT (myocardial infarction) Coronary artery disease CHF (congestive heart failure) Severe sepsis Inflammatory arthritis Gout Inclusion body myositis 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 HLD (hyperlipidemia) Neuropathy Surgical History S/P cardiac cath History of hysterectomy Family History Other Coronary heart disease Social History Smoking Status: Never smoker Second Hand Exposure: No; Do You Dip or Chew Tobacco: No; Hx Alcohol Use: No Hx Substance Use: No Preferred Language: Persian Communication Ability: Effective Financial Center Manager Required: No Beliefs That Will Affect Care: None Current Living Situation: Alone Feels Safe at Home: Yes Assistive Devices: Cane, Stair Lift, Walker and Wheelchair Review of Systems Review of Systems: All systems reviewed & are unremarkable except as noted in HPI & below Physical Exam Physical Exam: please refer to Dr Castellanos addendum for physical exam findings. Results & Data Results & Data Vital Signs (Past 12 Hours) Vital Signs Temp Pulse Resp BP BP Pulse Ox O2 Del Method 04/28/23 14:26 135/70 04/28/23 11:34 129/95 04/28/23 10:38 36.8 C 92 H 14 158/99 H 93 Room Air Laboratory Results I have independently reviewed and interpreted patient's admitting labs including CBC, CMP, PTT, PT/INR, lactate, UA and resp biofire. Diagnostic Findings Chest X-Ray 04/28/23 10:43 XR chest 1V portable CLINICAL HISTORY: flu like symptoms TECHNIQUE: Single frontal radiograph of the chest was obtained. Comparison: Comparison is made to chest radiograph 01/17/2012 FINDINGS: No lines and tubes are seen. Calcified aortic knob is seen. The lungs are clear. No evidence of pleural effusion or pneumothorax. IMPRESSION: No acute chest disease. ACT 112: Negative or not required by law. Electronically signed by: Jose Singh M.D. 04/28/2023 11:44 AM Abdomen/Pelvis CT 04/28/23 11:[address] WITH IV CONTRAST CT DOSE: 1010.83 mGy.cm HISTORY: Acute generalized abdominal pain with diarrhea abd pain + gaurding, diffuse, diarrhea TECHNIQUE: Multiaxial CT images of the abdomen and pelvis were performed following the IV administration of 94 cc of Optiray, A dose lowering technique was utilized adhering to the principles of ALARA. COMPARISON STUDY: 01/16/2022 FINDINGS: Mild cardiomegaly. Extensive coronary artery calcifications. Mild line ar subsegmental bibasilar atelectasis with right hemidiaphragmatic elevation. No free air. Unremarkable spleen, atrophic pancreas and adrenal glands. Stented gallbladder with layering cholelithiasis in the gallbladder fundus. Mild fundal gallbladder wall thickening. Trace edema/fluid adjacent to the gallbladder fundus. Unremarkable liver. Patent portal vein. 1.9 cm cyst of the inferior pole right kidney. 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 Symmetric enhancement kidneys. No hydronephrosis. Decompressed urinary bladder with mild wall thickening. Hysterectomy. Atherosclerosis of the aorta without aneurysm. No lymphadenopathy. Atrophy of the proximal thigh musculature. Moderate sized hiatal hernia with distal esophageal wall thickening. Left upper quadrant splenule again noted. Colonic diverticulosis. Trace pelvic ascites. There is a 6 mm metallic density focus within the cecum near the base of the appendix on image 257. The appendix is air and fluid filled, dilated and inflamed measuring up to 1.2 cm transversely with adjacent periappendiceal inflammation. No drainable fluid collections. There is a 6 mm mid appendiceal appendicolith. Circumferential wall thickening with mucosal hyperemia involves loops of distal ileum. Fluid-filled cecum and distal small bowel loops without high-grade obstruction. No acute fracture. Degenerative changes of the spine, pelvis and hips. IMPRESSION: 1. Acute appendicitis with subcentimeter appendicolith. Foci of air within the mid appendiceal lumen may be secondary to intraluminal necrosis. No drainable fluid collection or pneumoperitoneum. 2. Indeterminate subcentimeter metallic density focus within the cecum near the base of the appendix. 3. Fluid-filled cecum and loops of ileum with mucosal hyperemia of the terminal ileum, likely reactive. 4. Cholelithiasis with gallbladder distention and mild fundal gallbladder wall thickening, also likely reactive. Findings could be correlated with ultrasound if further clinical concern. 5. Moderate-sized hiatal hernia. 6. Additional findings as above. ACT 112: Negative or not required by law. The above report was generated using voice recognition software. It may contain grammatical, syntax or spelling errors. Electronically signed by: Carlos Shine M.D. 04/28/2023 2:39 PM Medications Administered Current Inpatient Medications Atropine Sulfate (Atropine Sulfate 0.1 Mg/Ml 10ml Syr) 0.5 mg IV Q1M PRN PRN Reason: PACU Use-HR<40 &/or Bradycardi Stop: 04/28/23 23:26 Ephedrine Sulfate (Ephedrine Sulfate 50 Mg/Ml Amp) 5 mg IV Q5M PRN PRN Reason: PACU Use Only-SBP<90 mmHg Stop: 04/28/23 23:26 Fentanyl Citrate (Fentanyl Citrate Pf 100 Mcg/2 Ml Vial) 25 mcg IV Q5M PRN PRN Reason: PACU Use Only-Pain Stop: 04/28/23 23:26 Ondansetron HCl (Ondansetron Inj 2 Mg/Ml 2 Ml Vial) 4 mg IV ONCE PRN PRN Reason: PACU Use Only-Nausea/Vomiting Stop: 04/28/23 23:26 COVID-19 Results Results COVID-19 Adm Lab Results: RBC 4.49 M/uL (4.20-5.40) 04/28/23 WBC 14.06 K/ul (4.8-10.8) H 04/28/23 Hgb 14.6 g/dl (12.0-16.0) 04/28/23 Hct 43.8 % (37.0-47.0) 04/28/23 Plt Count 295 K/uL (130-400) 04/28/23 Neutrophils (%) (Auto) 85.5 % 04/28/23 Lymphocytes (%) (Auto) 8.4 % 04/28/23 Monocytes # (Auto) 0.64 K/uL (0.11-0.59) H 04/28/23 Eosinophils # (Auto) 0.10 K/uL (0.00-0.50) 04/28/23 Immature Granulocyte % (Auto) 0.5 % 04/28/23 Neutrophils # (Auto) 12.03 K/uL (1.40-6.50) H 04/28/23 Lymphocytes # (Auto) 1.18 K/uL (1.20-3.40) L 04/28/23 Monocytes # (Auto) 0.64 K/uL (0.11-0.59) H 04/28/23 Eosinophils # (Auto) 0.10 K/uL (0.00-0.50) 04/28/23 Basophils # (Auto) 0.04 K/uL (0.00-0.20) 04/28/23 Immature Granulocyte # (Auto) 0.07 K/uL (0.01-0.20) 4 Na 137 mmol/L (136-145) 04/28/23 K 3.6 mmol/L (3.5-5.1) 04/28/23 Cl 104 mmol/L (98-107) 04/28/23 CO2 19 mmol/L (21-32) L 04/28/23 Anion Gap 14 (3-11) H 04/28/23 BUN 23 mg/dl (6-23) 04/28/23 Creatinine 0.66 mg/dl (0.6-1.2) 04/28/23 BUN/Creatinine Ratio 34.8 (10-20) H 04/28/23 Glucose Level 122 mg/dl (70-99(Fasting)) H 04/28/23 Ca 9.4 mg/dl (8.6-10.3) 04/28/23 Total Bilirubin 0.6 mg/dl (0.2-1.0) 04/28/23 AST/SGOT 21 U/L (13-39) 04/28/23 ALT/SGPT 13 U/L (7-52) 04/28/23 Alkaline Phosphatase 78 U/L (34-104) 04/28/23 Total Protein 7.7 gm/dl (6.0-8.3) 04/28/23 Albumin 4.0 gm/dl (3.4-5.0) 04/28/23 Globulin 3.7 gm/dl (2.5-4.0) 04/28/23 Albumin/Globulin Ratio 1.1 (0.9-2) 04/28/23 Adenovirus (PCR) Not Detected (NotDetected) 04/28/23 B. parapertussis DNA (PCR) Not Detected (NotDetected) 04/13 10/04 B. pertussis DNA (PCR) Not Detected (NotDetected) 04/28/23 C. pneumoniae DNA (PCR) Not Detected (NotDetected) 4 Coronavirus Type OC43 (PCR) Not Detected (NotDetected) Coronavirus Type HKU1 (PCR) Not Detected (NotDetected) Coronavirus Type 229E (PCR) Not Detected (NotDetected) COVID-19 PCR Not Detected (NotDetected) 04/28/23 Coronavirus Type NL63 (PCR) Not Detected (NotDetected) Human Metapneumovirus (PCR) Not Detected (NotDetected) Influenza Virus Type A (PCR) Not Detected (NotDetected) Influenza Virus Type B (PCR) Not Detected (NotDetected) M. pneumoniae (PCR) Not Detected (NotDetected) 04/28/23 Parainfluenza Type 1 (PCR) Not Detected (NotDetected) 04/13 10/04 Parainfluenza Type 2 (PCR) Not Detected (NotDetected) 04/13 10/04 Parainfluenza Type 3 (PCR) Not Detected (NotDetected) 04/13 10/04 Parainfluenza Type 4 (PCR) Not Detected (NotDetected) 04/13 10/04 RSV (PCR) Not Detected (NotDetected) 04/28/23 Enterovirus/Rhinovirus (PCR) Not Detected (NotDetected) Chest X-Ray 04/28/23 Code Status & VTE Plan Code Status FULL CODE VTE Prophylaxis Plan VTE Prophylaxis will be ordered: Yes Supervising Physician Co-Signing Physician Notes I have seen and discussed the case with the collaborating EZEQUIEL. I agree with the above H&P. I have reviewed and confirmed the patients medical history, the findings on physical examination, and the patients diagnosis and treatment plan with Ryan NIEVES and agree with the information documented. In short, Ms. Chandler is an 82 year old woman with history of HFpEF, CAD s/p stent, PSVT, HTN, HLD, hypothyroidism, CIDP/inclusion body myositis who presented for acute right abdominal pain and now to be admitted for post-appendectomy management. Patient evaluated prior to procedure. Patient reports acute diarrhea, nausea/vomiting since 3am. Reports feeling at baseline otherwise, with occasional RLQ tenderness previously. Physical Exam General: Pleasant woman, however, occasionally nauseated during exam CV RRR, no murmur appreciated RESP CTAB GI: LLQ soft, Guarding with RLQ, exam limited 2/2 discomfort/pain MSK moving all extremities equally A/P #Acute appendicitis -Follow up post operative labs #CAD s/p stents 2019 #HTN -resume as able post-operatively Rest of plan as above. (1) Acute appendicitis Acute appendicitis type: with localized peritonitis Appendicitis abscess presence: without abscess Appendicitis gangrene presence: without gangrene Appendicitis perforation presence: without perforation Qualified Code(s): K35.30 - Acute appendicitis with localized peritonitis, without perforation or gangrene (2) UTI (urinary tract infection) Hematuria presence: without hematuria Urinary tract infection type: site unspecified Qualified Code(s): N39.0 - Urinary tract infection, site not specified (5) Hypertension Hypertension type: unspecified Qualified Code(s): I10 - Essential (primary) hypertension
--- NOTE | 2023-04-28 17:14 | Post Operative Brief Note ---
Immediate Post Op Note v1 Date of Surgery April 28, 2023 Pre & Post Diagnosis Operation Date: 04/28/23 07:55 Pre-Op Diagnosis: Acute Appendicitis Post-Op Diagnosis: Acute Appendicitis I identified the patient and participated in the time-out.: Yes Procedure Operation Date: 04/28/23 07:55 Actual Procedures p Laparoscopic Appendectomy(Not Applicable) - Moises Witt MD Surgeon Moises Witt MD Electrical Continuity Tester None Estimated Blood Loss 5 Findings Consistent with Post-Op Diagnosis Drains Beckett Catheter (Inserted prior to procedure start by ST Shweta; 10cc in balloon; clear, yellow urine returned)
--- NOTE | 2023-04-28 17:16 | Operative Report ---
Post Operative Report Pre & Post Diagnosis Operation Date: 04/28/23 07:55 Pre-Op Diagnosis: Acute Appendicitis Post-Op Diagnosis: Acute Appendicitis I identified the patient and participated in the time-out.: Yes Procedure Operation Date: 04/28/23 07:55 Actual Procedures p Laparoscopic Appendectomy(Not Applicable) - Moises Witt MD Surgeon Moises Witt MD Dado Operator None Estimated Blood Loss 5 Findings Consistent with Post-Op Diagnosis Severe acute appendicitis, no perforation Specimens Appendix Drains None Anesthesia Type General Complications No immediate complications Description of Procedure The patient was taken to the operating room, and placed supine on the operating table. A timeout was performed, perioperative antibiotics were administered, SCD boots were placed. After adequate anesthesia and analgesia was obtained, the abdomen was prepped and draped in the normal sterile fashion. A 1 cm incision was made in the supraumbilical region and carried down to the level of the fascia. A trach hook was used to grasp the fascia and elevated and a varies needle was used to enter the abdominal cavity. The abdomen was insufflated to a pressure of 15 mmHg, and a 5 mm trocar was placed in this location. A 5 mm 30 degree laparoscope was placed into the abdominal cavity, and the abdomen was surveyed. There was severe inflammatory change throughout the abdomen. The omentum was punched and covering the cecum and terminal ileum. The patient was placed in Trendelenburg and slightly to the left. One 5 mm trocar was placed in the right upper quadrant, and one 12 mm trocar was placed in the left lower quadrant under direct visualization. The right colon was identified and traced down to the cecum. The omentum was retracted superiorly, and inflammatory effusions were broken bluntly with the graspers. Multiple loops of small bowel that were adhesed to the cecum and omentum were also taken down with blunt dissection. Finally, the appendix was identified and elevated anteriorly and medially. The appendix was gangrenous but there was no perforation. A window was created at the base of the appendix with a [place] dissector. The Endo FRED stapler was used to transect the mesoappendix, allowing us to elevate the appendix anteriorly and away from the cecum another bowel. The base of the appendix was then transected with a bowel load of the Endo FRED stapler. The appendix was placed in an Endo Catch bag, and removed via the left lower quadrant port site. Attention was turned to hemostasis, which was excellent. The abdomen was copiously irrigated and suctioned free, and again hemostasis was found to be excellent. All trochars removed under direct visualization. The abdomen was desufflated. The fascia in the 12 mm port site was closed with a 0 Vicryl suture. The skin was closed with a running 4-0 Monocryl subcuticular stitch. Dermabond was applied. The patient tolerated the procedure without complication, and was transferred in stable condition to the PACU. All instrument, needle, and sponge counts were correct at the end of the case. I attest to the content of the Intraoperative Record and any orders documented therein. Any exceptions are noted below.
[2023-04-28] MEDS ORDERED: MoRPHine SULFATE 2 MG/ML CARP IV PRN (17:19)
[2023-04-28] MEDS ORDERED: oxyCODONE/ACETAMINOPHEN 5mg/325mg TAB PO PRN (17:19)
[2023-04-28] MEDS ORDERED: diphenhydrAMINE Capsule 25 MG CAP PO PRN (17:19)
[2023-04-28] MEDS ORDERED: PROMETHAZINE HCL 12.5 MG in SODIUM CHLORIDE 0.9% 50 ML IV PRN (17:19)
--- NOTE | 2023-04-28 17:48 | Anesthesiology Progress Note ---
Date of Service April 28, 2023 Anesthesia Post Procedure Vital Signs Vital Signs: Temp Pulse Pulse Resp BP BP Pulse Ox 04/28/23 17:40 92 H 24 124/74 96 04/28/23 17:30 91 H 26 H 136/76 90 04/28/23 17:24 37.4 C 91 H 20 140/75 94 04/28/23 15:45 37.1 C 100 H 22 161/91 H 97 04/28/23 14:26 135/70 04/28/23 11:34 129/95 04/28/23 10:38 36.8 C 92 H 14 158/99 H 93 O2 Del Method O2 Flow Rate 04/28/23 17:40 Nasal Cannula 2 04/28/23 17:30 Room Air 04/28/23 17:24 Room Air 04/28/23 15:45 Room Air 04/28/23 14:26 04/28/23 11:34 04/28/23 10:38 Room Air Pain Intensity Head: Pain Intensity: 8 Transfer of Care Handoff Completed per policy Notes Mental Status: alert / awake / arousable and participated in evaluation Patient Amnestic to Procedure: Yes Nausea / Vomiting: adequately controlled Pain: adequately controlled Airway Patency, RR, SpO2: stable & adequate BP & HR: stable & adequate Hydration State: stable & adequate Anesthetic Complications: no major complications apparent and Pt Satisfied with anesthetic care
[2023-04-28] MEDS ORDERED: PIPERACILLIN/TAZOBACTAM 4.5 GM in DEXTROSE 5% MINI-B 100 ML IV SCH (19:57)
[2023-04-28] MEDS ORDERED: NSS + 20MEQ KCL 20 MEQ/1,000 ML BAG IV SCH (19:57)
[2023-04-28] MEDS: PIPERACILLIN/TAZOBACTAM 4.5 GM in DEXTROSE 5% MINI-B 100 ML IV SCH (20:20)
[2023-04-28] MEDS: GABAPENTIN 600 MG TAB PO SCH (21:04)
[2023-04-28] MEDS: ACETAMINOPHEN 325 MG TAB PO PRN (21:06)
[2023-04-29] MEDS: PIPERACILLIN/TAZOBACTAM 4.5 GM in DEXTROSE 5% MINI-B 100 ML IV SCH ×3 (03:46→20:07)
[2023-04-29] MEDS: LEVOTHYROXINE SODIUM 88 MCG TABLET PO SCH (06:16)
[2023-04-29 07:41] LABS: Hematocrit (blood only) 36.4 % (37.0-47.0); Hemoglobin 12.1 g/dl (12.0-16.0); Mean Corpuscular Hemoglobin 32.7 pg (25.0-34.0); Mean Corpuscular Hgb Conc 33.2 g/dL (32.0-36.0); Mean Corpuscular Volume 98.4 fL (80.0-100.0); Mean Platelet Volume 10.4 fL (9.4-12.4); Platelet Count 263 K/uL (130-400); RDW Coefficient of Variation 14.9 % (11.5-14.5); RDW Standard Deviation 54.3 fL (36.4-46.3); White Blood Count 16.34 K/ul (4.8-10.8)
[2023-04-29 08:00] LABS: Albumin Globulin Ratio 0.9 (0.9-2); Albumin Level 3.2 gm/dl (3.4-5.0); BUN Creatinine Ratio 36.5 (10-20); Bilirubin,Total 0.6 mg/dl (0.2-1.0); Calcium 8.5 mg/dl (8.6-10.3); Creatinine Clr Calc Pharmacy 49.7 ml/min; Est GFR (African American) 86.8 ml/min; Est GFR (Non-African American) 74.9 ml/min; Globulin 3.4 gm/dl (2.5-4.0); Magnesium 1.6 mg/dl (1.7-2.4); Total Protein 6.6 gm/dl (6.0-8.3)
[2023-04-29 08:06] LABS: Basophils # (auto) 0.03 K/uL (0.00-0.20); Basophils % (auto) 0.2 %; Dohle Bodies 1+; Immature Granulocytes # (auto) 0.13 K/uL (0.01-0.20); Immature Granulocytes % (auto) 0.8 %; Lymphocytes # (auto) 0.66 K/uL (1.20-3.40); Monocytes # (auto) 0.54 K/uL (0.11-0.59); Monocytes % (auto) 3.3 %; Neutrophils # (auto) 14.98 K/uL (1.40-6.50); Neutrophils % (auto) 91.7 %
[2023-04-29 08:31] LABS: Estimated Average Glucose 126 mg/dl
[2023-04-29] MEDS: GABAPENTIN 600 MG TAB PO SCH ×3 (09:26→20:08)
[2023-04-29] MEDS: PANTOprazole 40 MG TAB PO SCH (09:27)
[2023-04-29] MEDS: allopurinoL 100 MG TAB PO SCH (09:27)
[2023-04-29] MEDS: ASPIRIN 81 MG ECTAB PO SCH (09:27)
[2023-04-29] MEDS: amLODIPine BESYLATE 5 MG TAB PO SCH (09:27)
[2023-04-29] MEDS: CHOLECALCIFEROL 1,000 UNITS 25 MCG TAB PO SCH (09:27)
[2023-04-29] MEDS: METOPROLOL SUCC 25MG EXT REL TAB PO SCH (09:27)
[2023-04-29] MEDS: MAGNESIUM SULFATE / D5W 1 GM/100 ML BAG IV SCH ×3 (09:28→17:12)
[2023-04-29] MEDS: predniSONE 5 MG TAB PO SCH (09:28)
--- NOTE | 2023-04-29 11:13 | Surgery Progress Note ---
Date of Service April 29, 2023 Assessment & Plan (1) Acute appendicitis: Plan POD #1 s/p lap appendectomy Doing well Advance diet as tolerated Continue antibiotics DVT prophylaxis with SCDs and Lovenox Encourage incentive spirometry and mobility Continuing to follow Admission and Anticipated Discharge Date Admission Date: April 28, 2023 Subjective POD #1 s/p lap appendectomy. She is doing very well. She denies pain. She denies nausea or vomiting. She is tolerating clears. Physical Exam Physical Exam: AFVSS NAD, A&O x 3 Abdomen: Soft, NTND Incisions C/D/I; Dermabond in place Results & Data Vital Signs (Past 12 Hours) Vital Signs Temp Pulse Resp BP Pulse Ox O2 Del Method 04/29/23 07:03 36.8 C 78 16 117/75 96 Room Air 04/29/23 02:46 36.7 C 85 18 124/80 97 Room Air Laboratory Results 04/29/23 04/28/23 04/28/23 Range/Units 07:13 13:28 12:40 WBC 16.34 H 14.06 H (4.8-10.8) K/ul RBC 3.70 L 4.49 (4.20-5.40) M/uL Hgb 12.1 14.6 (12.0-16.0) g/dl Hct 36.4 L 43.8 (37.0-47.0) % MCV 98.4 97.6 (80.0-100.0) fL MCH 32.7 32.5 (25.0-34.0) pg MCHC 33.2 33.3 (32.0-36.0) g/dL RDW Std Deviation 54.3 H 52.1 H (36.4-46.3) fL RDW Coeff of Danya 14.9 H 14.5 (11.5-14.5) % Plt Count 263 295 (130-400) K/uL MPV 10.4 10.6 (9.4-12.4) fL Immature Gran % (Auto) 0.8 0.5 % Neut % (Auto) 91.7 85.5 % Lymph % (Auto) 4.0 8.4 % [place] % (Auto) 3.3 4.6 % Eos % (Auto) 0.0 0.7 % Baso % (Auto) 0.2 0.3 % Neut # (Auto) 14.98 H 12.03 H (1.40-6.50) K/uL Lymph # (Auto) 0.66 L 1.18 L (1.20-3.40) K/uL [place] # (Auto) 0.54 0.64 H (0.11-0.59) K/uL Eos # (Auto) 0.00 0.10 (0.00-0.50) K/uL Baso # (Auto) 0.03 0.04 (0.00-0.20) K/uL Immature Gran # (Auto) 0.13 0.07 (0.01-0.20) K/uL Dohle Bodies 1+ Sodium 138 137 (136-145) mmol/L Potassium 4.0 3.6 (3.5-5.1) mmol/L Chloride 107 104 (98-107) mmol/L Carbon Dioxide 20 L 19 L (21-32) mmol/L Anion Gap 11 14 H (3-11) BUN 27 H 23 (6-23) mg/dl Creatinine 0.74 0.66 (0.6-1.2) mg/dl Est Cr Clr Drug Dosing 49.7 55.8 ml/min Est GFR ( Amer) 86.8 94.7 ml/min Est GFR (Non-Af Amer) 74.9 81.7 ml/min BUN/Creatinine Ratio 36.5 H 34.8 H (10-20) Glucose 140 H 122 H (70-99(Fasting)) mg/dl Estimat Average Glucose 126 mg/dl Hemoglobin A1c 6.0 H (4.5-5.6) % Lactate 1.7 (0.4-2.0) mmol/L Calcium 8.5 L 9.4 (8.6-10.3) mg/dl Magnesium 1.6 L (1.7-2.4) mg/dl Total Bilirubin 0.6 0.6 (0.2-1.0) mg/dl AST 14 21 (13-39) U/L ALT 11 13 (7-52) U/L Alkaline Phosphatase 64 78 (34-104) U/L Total Protein 6.6 7.7 (6.0-8.3) gm/dl Albumin 3.2 L 4.0 (3.4-5.0) gm/dl Globulin 3.4 3.7 (2.5-4.0) gm/dl Albumin/Globulin Ratio 0.9 1.1 (0.9-2) Urine Color Urine Appearance (Clear) Urine pH (4.5-7.5) Ur Specific [place] (1.000-1.030) Urine Protein (Negative) Urine Glucose (UA) (Negative) Urine Ketones (Negative) Urine Blood (Negative) Urine Nitrite (Negative) Urine Bilirubin (Negative) Urine Urobilinogen (Negative) Ur Leukocyte Esterase (Negative) Urine WBC (Auto) (0-5) /hpf Urine RBC (Auto) (0-4) /hpf U Hyaline Cast (Auto) (0-5) /lpf U Epithel Cells (Auto) (0-5) /lpf Urine Bacteria (Auto) (Negative) Adenovirus (PCR) (NotDetected) B. pertussis DNA (PCR) (NotDetected) B.parapertussis DNA PCR (NotDetected) C. pneumoniae DNA (PCR) (NotDetected) Coronavirus OC43 (PCR) (NotDetected) Coronavirus HKU1 (PCR) (NotDetected) Coronavirus 229E (PCR) (NotDetected) SARS-CoV-2 (PCR) (NotDetected) Coronavirus NL63 (PCR) (NotDetected) Human Metapneumovir PCR (NotDetected) Influenza Type A (PCR) (NotDetected) Influenza Type B (PCR) (NotDetected) M. pneumoniae (PCR) (NotDetected) Parainfluenza 1 (PCR) (NotDetected) Parainfluenza 2 (PCR) (NotDetected) Parainfluenza 3 (PCR) (NotDetected) Parainfluenza 4 (PCR) (NotDetected) RSV (PCR) (NotDetected) Entero/Rhino (PCR) (NotDetected) 04/28/23 04/28/23 Range/Units 12:26 10:30 WBC (4.8-10.8) K/ul RBC (4.20-5.40) M/uL Hgb (12.0-16.0) g/dl Hct (37.0-47.0) % MCV (80.0-100.0) fL MCH (25.0-34.0) pg MCHC (32.0-36.0) g/dL RDW Std Deviation (36.4-46.3) fL RDW Coeff of Danya (11.5-14.5) % Plt Count (130-400) K/uL MPV (9.4-12.4) fL Immature Gran % (Auto) % Neut % (Auto) % Lymph % (Auto) % [place] % (Auto) % Eos % (Auto) % Baso % (Auto) % Neut # (Auto) (1.40-6.50) K/uL Lymph # (Auto) (1.20-3.40) K/uL [place] # (Auto) (0.11-0.59) K/uL Eos # (Auto) (0.00-0.50) K/uL Baso # (Auto) (0.00-0.20) K/uL Immature Gran # (Auto) (0.01-0.20) K/uL Dohle Bodies Sodium (136-145) mmol/L Potassium (3.5-5.1) mmol/L Chloride (98-107) mmol/L Carbon Dioxide (21-32) mmol/L Anion Gap (3-11) BUN (6-23) mg/dl Creatinine (0.6-1.2) mg/dl Est Cr Clr Drug Dosing ml/min Est GFR ( Amer) ml/min Est GFR (Non-Af Amer) ml/min BUN/Creatinine Ratio (10-20) Glucose (70-99(Fasting)) mg/dl Estimat Average Glucose mg/dl Hemoglobin A1c (4.5-5.6) % Lactate (0.4-2.0) mmol/L Calcium (8.6-10.3) mg/dl Magnesium (1.7-2.4) mg/dl Total Bilirubin (0.2-1.0) mg/dl AST (13-39) U/L ALT (7-52) U/L Alkaline Phosphatase (34-104) U/L Total Protein (6.0-8.3) gm/dl Albumin (3.4-5.0) gm/dl Globulin (2.5-4.0) gm/dl Albumin/Globulin Ratio (0.9-2) Urine Color Dark Yellow Urine Appearance Clear (Clear) Urine pH 5.0 (4.5-7.5) Ur Specific [place] 1.022 (1.000-1.030) Urine Protein 1+ H (Negative) Urine Glucose (UA) Negative (Negative) Urine Ketones Trace H (Negative) Urine Blood Negative (Negative) Urine Nitrite Negative (Negative) Urine Bilirubin Negative (Negative) Urine Urobilinogen Negative (Negative) Ur Leukocyte Esterase Trace H (Negative) Urine WBC (Auto) 5-10 H (0-5) /hpf Urine RBC (Auto) 0-4 (0-4) /hpf U Hyaline Cast (Auto) 1-5 (0-5) /lpf U Epithel Cells (Auto) 0-5 (0-5) /lpf Urine Bacteria (Auto) 4+ H (Negative) Adenovirus (PCR) Not Detected (NotDetected) B. pertussis DNA (PCR) Not Detected (NotDetected) B.parapertussis DNA PCR Not Detected (NotDetected) C. pneumoniae DNA (PCR) Not Detected (NotDetected) Coronavirus OC43 (PCR) Not Detected (NotDetected) Coronavirus HKU1 (PCR) Not Detected (NotDetected) Coronavirus 229E (PCR) Not Detected (NotDetected) SARS-CoV-2 (PCR) Not Detected (NotDetected) Coronavirus NL63 (PCR) Not Detected (NotDetected) Human Metapneumovir PCR Not Detected (NotDetected) Influenza Type A (PCR) Not Detected (NotDetected) Influenza Type B (PCR) Not Detected (NotDetected) M. pneumoniae (PCR) Not Detected (NotDetected) Parainfluenza 1 (PCR) Not Detected (NotDetected) Parainfluenza 2 (PCR) Not Detected (NotDetected) Parainfluenza 3 (PCR) Not Detected (NotDetected) Parainfluenza 4 (PCR) Not Detected (NotDetected) RSV (PCR) Not Detected (NotDetected) Entero/Rhino (PCR) Not Detected (NotDetected) (1) Acute appendicitis Acute appendicitis type: with localized peritonitis Appendicitis gangrene presence: with gangrene Appendicitis perforation presence: without perforation Appendicitis abscess presence: without abscess Qualified Code(s): K35.31 - Acute appendicitis with localized peritonitis and gangrene, without perforation
--- NOTE | 2023-04-29 15:53 | Hospitalist Progress Note ---
Date of Service April 29, 2023 Assessment & Plan (1) Acute appendicitis: (2) UTI (urinary tract infection): (3) Coronary artery disease: (4) Inclusion body myositis: (5) Hypertension: (6) HLD (hyperlipidemia): (7) Neuropathy: Plan Ms. Chandler is an 82-year-old female with significant past medical history of CAD with history of coronary angioplasty, HTN, diastolic dysfunction, history of cardiomyopathy, HLD, CIDP, chronic prednisone therapy secondary to severe osteoarthritis, hypothyroidism, inclusion body myositis, GERD who presents to ED secondary to abdominal pain, nausea and diarrhea since 3 AM on 04/28 and admitted on same day for acute apendicitis. Patient is now POD 1 from 04/28 appendectomy #Acute Appendicitis #Probable early sepsis w/ leukocytosis, tachycardia *improving pt was seen and examined by general surgery in ED, s/p appendectomy 04/28 continue IV zosyn General surgery following, reviewed notes -encourage ambulation as tolerated (limited 2/2 severe osteoarthritis and myositis) -advancing diet as tolerated -SCDs and lovenox -IS #Acute UTI Urine with E coli >100K currently on IV zosyn await further susceptibilties #Cholelithiasis --CT a/p:Cholelithiasis with gallbladder distention and mild fundal gallbladder wall thickening, also likely reactive. Findings could be correlated with ultrasound if further clinical concern. 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 Vanegas Dispo: post operatively will be admitted to med/surg, likely to remain hospitalized 1-2 days contingent on surgery sign off--complex caregiver situation and patient refused Pt/Ot at this time. Discussion with sample case porter had regarding dispo Admission and Anticipated Discharge Date Admission Date: April 28, 2023 Subjective NAEO Doing well overall. Denies any acute concerns, reports much improvement in nausea and abdominal pain Physical Exam Constitutional: WD/WN, vitals as above Respiratory: normal respiratory effort, lungs clear to auscultation Cardiovascular: RRR, no murmur, no edema Results & Data Results & Data Vital Signs (Past 12 Hours) Vital Signs Temp Pulse Resp BP Pulse Ox O2 Del Method 04/29/23 14:52 37 C 78 16 113/76 97 Room Air 04/29/23 07:03 36.8 C 78 16 117/75 96 Room Air Laboratory Results Short CBC 04/29/23 Range/Units 07:13 WBC 16.34 H (4.8-10.8) K/ul Hgb 12.1 (12.0-16.0) g/dl Hct 36.4 L (37.0-47.0) % Plt Count 263 (130-400) K/uL BMP 04/29/23 07:13 Sodium 138 Potassium 4.0 Chloride 107 Carbon Dioxide 20 L BUN 27 H Creatinine 0.74 Glucose 140 H Calcium 8.5 L Liver Function 04/29/23 Range/Units 07:13 Total Bilirubin 0.6 (0.2-1.0) mg/dl AST 14 (13-39) U/L ALT 11 (7-52) U/L Alkaline Phosphatase 64 (34-104) U/L Albumin 3.2 L (3.4-5.0) gm/dl Medications Administered Home Medications Medication Instructions Recorded Confirmed Last Taken allopurinol 100 mg tablet 100 mg PO QAM 08/03/18 04/28/23 10/10/18 cholecalciferol (vitamin D3) 25 2,000 unit PO DAILY 08/03/18 04/28/23 10/10/18 08:00 mcg (1,000 unit) tablet (Vitamin D3) cyanocobalamin (vitamin B-12) 1,000 mcg IM MONTHLY 08/03/18 04/28/23 09/27/18 1,000 mcg/mL injection solution duloxetine 30 mg capsule,delayed 30 mg PO HS 08/03/18 04/28/23 10/09/18 release (Cymbalta) gabapentin 600 mg tablet 600 mg PO TID 08/03/18 04/28/23 10/10/18 08:00 (Neurontin) acetaminophen 500 mg tablet 500 mg PO QID PRN Pain 07/01/19 01/16/24 07/01/19 (Tylenol Extra Strength) aspirin 81 mg tablet,delayed 81 mg PO QAM 10/11/18 04/28/23 10/10/18 release (Ecotrin Low Strength) atorvastatin 40 mg tablet 40 mg PO HS #90 tabs 06/06/19 04/28/23 Unknown diclofenac sodium 1 % topical gel 1 ea topical UD 01/16/22 04/28/23 Unknown ferrous sulfate 325 mg (65 mg 325 mg PO QAM 01/16/22 04/28/23 Unknown iron) tablet metoprolol succinate 25 mg 25 mg PO DAILY 01/16/22 04/28/23 Unknown tablet,extended release 24 hr pantoprazole 20 mg tablet,delayed 20 mg PO QAM 01/16/22 04/28/23 Unknown release prednisone 5 mg tablet 5 mg PO DAILY 01/16/22 04/28/23 Unknown turmeric root extract 500 mg 500 mg PO QAM 01/16/22 04/28/23 Unknown capsule amlodipine 5 mg tablet (Norvasc) 5 mg PO QAM #1 tab 01/22/22 04/28/23 Unknown levothyroxine 88 mcg tablet 88 mcg PO [id number] 04/28/23 04/28/23 Unknown Active Medications Generic Name Dose Route Start Last Admin Trade Name Freq PRN Reason Stop Dose Admin Acetaminophen 650 mg 04/28/23 19:57 04/28/23 21:06 Acetaminophen 325 Mg Tab PO 05/28/23 19:56 650 mg Q4H PRN Administration Pain or Fever Allopurinol 100 mg 04/29/23 09:00 04/29/23 09:27 Allopurinol 100 Mg Tab PO 05/29/23 08:59 100 mg QAM JERE Administration Amlodipine Besylate 5 mg 04/29/23 09:00 04/29/23 09:27 Amlodipine Besylate 5 Mg Tab PO 05/29/23 08:59 5 mg QAM JERE Administration Aspirin 81 mg 04/29/23 09:00 04/29/23 09:27 Aspirin 81 Mg Ectab PO 05/29/23 08:59 81 mg QAM JERE Administration Gabapentin 600 mg 04/28/23 21:00 04/29/23 09:26 Gabapentin 600 Mg Tab PO 05/28/23 20:59 600 mg TID JERE Administration Piperacillin Sod/Tazobactam 100 mls @ 25 mls/hr 04/28/23 19:30 04/29/23 14:26 Sod 4.5 gm/ Dextrose IV 05/08/23 19:29 25 mls/hr Q8H JERE Administration Protocol Levothyroxine Sodium 88 mcg 04/29/23 06:30 04/29/23 06:16 Levothyroxine Sodium 88 Mcg Tablet PO 05/29/23 06:29 88 mcg [id number] JERE Administration Metoprolol Succinate 25 mg 04/29/23 09:00 04/29/23 09:27 Metoprolol Succ 25mg Ext Rel Tab PO 05/29/23 08:59 25 mg DAILY JERE Administration Pantoprazole Sodium 40 mg 04/29/23 09:00 04/29/23 09:27 Pantoprazole 40 Mg Tab PO 05/29/23 08:59 40 mg QAM JERE Administration Prednisone 5 mg 04/29/23 09:00 04/29/23 09:28 Prednisone 5 Mg Tab PO 05/29/23 08:59 5 mg DAILY JERE Administration Vitamin D 2,000 units 04/29/23 09:00 04/29/23 09:27 Cholecalciferol 1,000 Units 25 Mcg Tab PO 05/29/23 08:59 2,000 units DAILY JERE Administration (1) Acute appendicitis Acute appendicitis type: with localized peritonitis Appendicitis gangrene presence: without gangrene Appendicitis perforation presence: without perforation Appendicitis abscess presence: without abscess Qualified Code(s): K35.30 - Acute appendicitis with localized peritonitis, without perforation or gangrene (2) UTI (urinary tract infection) Hematuria presence: without hematuria Urinary tract infection type: site unspecified Qualified Code(s): N39.0 - Urinary tract infection, site not specified (5) Hypertension Hypertension type: unspecified Qualified Code(s): I10 - Essential (primary) hypertension
[2023-04-29] MEDS ORDERED: ENOXAPARIN INJ 40 MG/0.4 ML SYR SQ SCH (16:00)
[2023-04-29] MEDS: ACETAMINOPHEN 325 MG TAB PO PRN (20:10)
[2023-04-29] MEDS ORDERED: DULoxetine HCL 30 MG CAP PO SCH (21:00)
[2023-04-29] MEDS ORDERED: ATORVASTATIN 40 MG TAB PO SCH (21:00)
[2023-04-30] MEDS: PIPERACILLIN/TAZOBACTAM 4.5 GM in DEXTROSE 5% MINI-B 100 ML IV SCH ×2 (03:39→11:43)
[2023-04-30] MEDS: LEVOTHYROXINE SODIUM 88 MCG TABLET PO SCH (05:48)
[2023-04-30 07:55] LABS: Hematocrit (blood only) 33.6 % (37.0-47.0); Mean Corpuscular Hemoglobin 32.1 pg (25.0-34.0); Mean Corpuscular Hgb Conc 32.7 g/dL (32.0-36.0); Mean Platelet Volume 10.4 fL (9.4-12.4); Platelet Count 236 K/uL (130-400); RDW Coefficient of Variation 14.8 % (11.5-14.5); RDW Standard Deviation 53.6 fL (36.4-46.3); Red Blood Count 3.43 M/uL (4.20-5.40); White Blood Count 13.16 K/ul (4.8-10.8)
[2023-04-30 07:56] LABS: Albumin Globulin Ratio 0.9 (0.9-2); Albumin Level 2.8 gm/dl (3.4-5.0); BUN Creatinine Ratio 40.6 (10-20); Bilirubin,Total 0.6 mg/dl (0.2-1.0); Calcium 8.8 mg/dl (8.6-10.3); Creatinine Clr Calc Pharmacy 57.5 ml/min; Est GFR (African American) 95.6 ml/min; Est GFR (Non-African American) 82.5 ml/min; Globulin 3.2 gm/dl (2.5-4.0); Phosphorus 2.8 mg/dl (2.5-4.9); Potassium 3.8 mmol/L (3.5-5.1)
[2023-04-30] MEDS: CHOLECALCIFEROL 1,000 UNITS 25 MCG TAB PO SCH (09:51)
[2023-04-30] MEDS: PANTOprazole 40 MG TAB PO SCH (09:52)
[2023-04-30] MEDS: METOPROLOL SUCC 25MG EXT REL TAB PO SCH (09:52)
[2023-04-30] MEDS: GABAPENTIN 600 MG TAB PO SCH (09:52)
[2023-04-30] MEDS: ASPIRIN 81 MG ECTAB PO SCH (09:52)
[2023-04-30] MEDS: predniSONE 5 MG TAB PO SCH (09:52)
[2023-04-30] MEDS: amLODIPine BESYLATE 5 MG TAB PO SCH (09:52)
[2023-04-30] MEDS: allopurinoL 100 MG TAB PO SCH (09:52)
[2023-04-30] MEDS: ACETAMINOPHEN 325 MG TAB PO PRN (09:54)
--- NOTE | 2023-04-30 12:36 | Surgery Progress Note ---
Date of Service April 30, 2023 Assessment & Plan (1) Acute appendicitis: Plan: POD #2 s/p lap appendectomy Doing well May be discharged to home from the surgical standpoint today Follow-up in clinic in 2 weeks Call with any questions or concerns Admission and Anticipated Discharge Date Admission Date: April 28, 2023 Subjective Doing well. Tolerating diet. No fevers or chills. No nausea or vomiting. Minimal pain. Physical Exam Physical Exam: AFVSS NAD, A&O x 3 Abdomen: Soft, and TMD Incisions C/C/I; Dermabond intact Results & Data Vital Signs (Past 12 Hours) Vital Signs Temp Pulse Resp BP Pulse Ox O2 Del Method 04/30/23 11:03 37.0 C 74 16 103/68 91 Room Air 04/30/23 09:35 Room Air 04/30/23 07:32 36.9 C 69 16 116/68 93 Room Air (1) Acute appendicitis Acute appendicitis type: with localized peritonitis Appendicitis abscess presence: without abscess Appendicitis gangrene presence: with gangrene Appendicitis perforation presence: without perforation Qualified Code(s): K35.31 - Acute appendicitis with localized peritonitis and gangrene, without perforation
--- NOTE | 2023-04-30 13:11 | Discharge Summary ---
Discharge Summary Date of Service April 30, 2023 Notes For Next Care Provider Patient with complicated social situation. Patient is alert and oriented--refusing any placement or assistance as paid caregivers, meals on wheels, and other resources are arranged. Patient's desire for home conflicts with daughter's desire for rehab/placement. Patient is grieving of another daughter, as well as multiple other complex issues. Patient expresses understanding of her physical limitations and has multiple mechanisms at home to navigate. OOA will be notified per Case management to ensure wellfare check and support Medication Changes From Visit Cefdinir 300mg BID x 5 days for UTI Admission HPI Per Admitting Provider This is an 82-year-old female with significant past medical history of CAD with history of coronary angioplasty, HTN, diastolic dysfunction, history of cardiomyopathy, HLD, CIDP, chronic prednisone therapy secondary to severe osteoarthritis, hypothyroidism, inclusion body myositis, GERD who presents to ED secondary to abdominal pain, nausea and diarrhea since 3 AM. She states that symptoms woke her up abruptly this morning. She had nausea, diarrhea and right lower quadrant abdominal pain. Her symptoms were severe and persisted and therefore she presented to ED. She denies any documented fever, chills, sweats, lightheadedness, dizziness, chest pain, shortness of breath, melena, hematochezia, change in urinary habits. In ED patient underwent CT scan of abdomen pelvis which showed acute appendicitis with subcentimeter appendicolith. Also noted were fluid-filled cecum and loops of ileum with mucosal hyperemia of the terminal ileum which is likely reactive. General surgery was consulted and plan is to undergo acute appendectomy. She received IV Zosyn in ED for broad- spectrum antibiotics. Admission Exam Per Admitting Provider Physical Exam General: Pleasant woman, however, occasionally nauseated during exam CV RRR, no murmur appreciated RESP CTAB GI: LLQ soft, Guarding with RLQ, exam limited 2/2 discomfort/pain MSK moving all extremities equally Principal Dx & Hospital Course #1 = Principal Diagnosis (1) Acute appendicitis: (2) UTI (urinary tract infection): (3) Coronary artery disease: (4) Inclusion body myositis: (5) Hypertension: (6) HLD (hyperlipidemia): (7) Neuropathy: Plan Ms. Chandler is an 82-year-old female with significant past medical history of CAD with history of coronary angioplasty, HTN, diastolic dysfunction, history of cardiomyopathy, HLD, CIDP, chronic prednisone therapy secondary to severe osteoa rthritis, hypothyroidism, inclusion body myositis, GERD who presents to ED secondary to abdominal pain, nausea and diarrhea since 3 AM on 04/28 and admitted on same day for acute appendicitis. Patient is now POD 2 from 04/28 appendectomy and recovering well. ON day of discharge, patient endorsed strong appetite and eagerness to return home. Patient with complex social situation. Patient has debilitating arthritis which has profoundly limited her mobility and dexterity of her fingers/hands/lower extremities. She is very aware of her limitations, but adamant against going home. She has meals on wheels and pays a caregiver. However, most recent caregiver resigned given recent of patient's daughter, who was also under care of same caregiver. This has left patient without a formal caregiver and daughter (in [place]) stressed about situation. Patient has very close support system. All resources were given to patient and daughter to workout next options for patient to ensure safety and continued support for as long as patient can remain at home. #Acute Appendicitis #Probable early sepsis w/ leukocytosis, tachycardia *improving pt was seen and examined by general surgery in ED, s/p appendectomy 04/28 continue IV zosyn General surgery following, reviewed notes -encourage ambulation as tolerated (limited 2/2 severe osteoarthritis and myositis) -Follow up with gen surgery in 2 weeks #Acute UTI Urine with E coli >100K Discharge with 5 days of cefdinir 300mg BID #Cholelithiasis --CT a/p:Cholelithiasis with gallbladder distention and mild fundal gallbladder wall thickening, also likely reactive. Findings could be correlated with ultrasound if further clinical concern. 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 #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 chronic, stable continue Synthroid post operatively #Chronic osteoarthritis/Gout on low dose prednisone 5mg daily Discharge Exam Constitutional WD/WN, vitals as above Respiratory normal respiratory effort, lungs clear to auscultation Cardiovascular RRR, no murmur, no edema Gastrointestinal (Abdomen) normal bowel sounds, soft, nontender, no hepatosplenomegaly Musculoskeletal severely limited mobility of hands 2/2 arthritis Updated Medication List Medication Instructions Recorded Confirmed Type allopurinol 100 mg tablet 100 mg PO QAM 08/03/18 04/28/23 History cholecalciferol (vitamin D3) 25 2,000 unit PO DAILY 08/03/18 04/28/23 History mcg (1,000 unit) tablet (Vitamin D3) cyanocobalamin (vitamin B-12) 1,000 mcg IM MONTHLY 08/03/18 04/28/23 History 1,000 mcg/mL injection solution duloxetine 30 mg capsule,delayed 30 mg PO HS 08/03/18 04/28/23 History release (Cymbalta) gabapentin 600 mg tablet 600 mg PO TID 08/03/18 04/28/23 History (Neurontin) acetaminophen 500 mg tablet 500 mg PO QID PRN Pain 10/11/18 04/28/23 History (Tylenol Extra Strength) aspirin 81 mg tablet,delayed 81 mg PO QAM 10/11/18 04/28/23 History release (Ecotrin Low Strength) atorvastatin 40 mg tablet 40 mg PO HS #90 tabs 06/06/19 04/28/23 Rx diclofenac sodium 1 % topical gel 1 ea topical UD 01/16/22 04/28/23 History ferrous sulfate 325 mg (65 mg 325 mg PO QAM 01/16/22 04/28/23 History iron) tablet metoprolol succinate 25 mg 25 mg PO DAILY 01/16/22 04/28/23 History tablet,extended release 24 hr pantoprazole 20 mg tablet,delayed 20 mg PO QAM 01/16/22 04/28/23 History release prednisone 5 mg tablet 5 mg PO DAILY 01/16/22 04/28/23 History turmeric root extract 500 mg 500 mg PO QAM 01/16/22 04/28/23 History capsule amlodipine 5 mg tablet (Norvasc) 5 mg PO QAM #1 tab 01/22/22 04/28/23 Rx levothyroxine 88 mcg tablet 88 mcg PO 6XWK 04/28/23 04/28/23 History cefdinir 300 mg capsule 300 mg PO BID 5 days #10 caps 04/30/23 Rx oxycodone-acetaminophen 5 mg-325 1 tab PO Q6H PRN pain #10 tabs 04/30/23 Rx mg tablet (Percocet) Hospital Stay Data Consultations 04/28/23 15:48 Consult General Surgery Routine 04/28/23 15:54 ED Decision to Admit Stat Procedures Performed Operation Date: 04/28/23 07:55 Actual Procedures p Laparoscopic Appendectomy(Not Applicable) - Moises Witt MD Diagnostic Imagining Performed 04/28/23 11:46 CT abd pelvis IV con only Stat Pending Results Patient Have Any Pending Studies at Discharge: No Discharge Instructions Given to Patient (Per Discharging Provider) Post-Surgical ~Discharge Instructions Activity Recommendations: - lifting limitation: (10 pounds for 2 weeks), - exercise/sex/sports limit: (nonstrenuous for 2 weeks), - driving or machine use limit: (none for 1 week), - Shower/bathe limit: (may shower beginning tomorrow) Diet: - Resume previous diet SPECIAL CARE INSTRUCTIONS: - May shower in 24 hours. Let water run over area and pat dry. - Leave Dermabond on for one week. - Call the surgeon's office with any questions or concerns - - (ex. temperature higher than 101 degrees F, excessive bleeding or pain). MEDICATIONS: - Resume previous medications unless instructed otherwise by your surgeon. - Ibuprofen 600 mg every 6 hours with food - Percocet 1 every 4 hours, as needed for pain FOLLOW UP VISIT: - If not already scheduled, please call the office to schedule a two week follow-up appointment. Office number Home Health Attestation I certify that this patient is under my care and that I, or a physicians curatorial assistant working with me, had a face to-face encounter that meets the home health [id number] encounter requirements with this patient. The encounter with the patient was in whole, or in part, for the following medical condition, which is the primary reason for home health care (list medical condition): I certify that, based on my findings, the following services are medically necessary home health services: My clinical findings support the need for the above services because: Further, I certify that my clinical findings support that this patient is homebound (i.e. absences from home require considerable and taxing effort and are for medical reasons or hinduism services or infrequently or of short duration when for other reasons) because: Certification for Home Health Services: Based on the above findings, I certify that this patient is confined to the home and needs intermittent senior living care, physical therapy and/or speech therapy or continues to need occupational therapy. The patient is under my care, and I have initiated the establishment of the plan of care. This patient will be followed by a physician who will periodically review the plan of care. Total Time Total Time Spent Total Time Spent (In Minutes): 55
== END 2023-04-30 13:45 | disposition home health service (06) | DRG 854 ==
LOC: ED 10:29 → 3W 15:48

== ENCOUNTER 2023-04-30 22:38 | Inpatient (IN) ==
--- NOTE | 2023-04-30 22:55 | Emergency Department Note ---
Impression & Plan Pneumonia, Weakness ED Provider Note NAME: SCHUYLER AU AGE: 82 SEX: F : 1940 ARRIVES VIA: Ambulance INFORMANT: Patient, EMS ED PROVIDER(S): Sumeet Eid DO CHIEF COMPLAINT: Weakness HPI: The patient is an 82-year-old female who presented to the emergency department for an evaluation of weakness. Patient is 2 days status post appendectomy. Her daughter found her to be very weak at home and did not feel that she should be sent home. The patient states she has no abdominal pain or chest pain. She denies having any fever or vomiting. She denies having any lower extremity swelling. She does have a history of left-sided weakness which is not new. ROS: See above HPI for pertinent positives & negatives. A total of 10 systems reviewed and were otherwise negative. PAST MEDICAL HISTORY: See Below PAST SURGICAL HISTORY: See Below FAMILY HISTORY: See Below SOCIAL HISTORY: See Below HOME MEDICATIONS: See Below ALLERGIES: See Below VITALS: See Below PHYSICAL EXAMINATION: GENERAL: Patient is awake alert in no acute distress patient is resting comfortably and showing no signs of anxiety EYES: The conjunctivae are clear. The pupils are round and reactive. EARS, NOSE, MOUTH AND THROAT: The nose is without any evidence of any deformity. NECK: The neck is nontender and supple. RESPIRATORY: Normal respiratory effort is noted there is no evidence of wheezing rhonchi or rales CARDIOVASCULAR: Regular rate and rhythm noted there no murmurs rubs or gallops normal S1 normal S2. GASTROINTESTINAL: The abdomen was soft and mildly distended. There is no tenderness guarding or rigidity. Postoperative sites are noted. Wound glue was in place. There is no drainage erythema or dehiscence. MUSCULOSKELETAL/EXTREMITIES: There is no evidence of gross deformity full range of motion is noted in the hips and shoulders. SKIN: There is no obvious evidence of any rash. There are no petechiae, pallor or cyanosis noted. NEUROLOGIC: Patient is awake alert and oriented x3. Speech was clear. MEDICAL DECISION MAKING: The patient is an 82-year-old female who presented to the emergency department for generalized weakness. The patient was admitted to our facility recently. She was found have appendicitis. She was treated surgically. She was discharged from the hospital earlier and was not doing well at home. Her daughter felt that she was very weak and was not able to manage at home. 911 was called the patient arrived via ambulance. I discussed patient's laboratory and radiographic studies with her. She was found to have signs of pneumonia on chest x-ray. Laboratory studies would also suggest an infection. She was treated with IV fluids and IV antibiotics. I discussed her condition with the on-call [facility] hospitalist. They have agreed to evaluate the patient in the emergency department for further management and disposition. Triage Nursing notes reviewed. Prior medical records reviewed Vital Signs: reviewed and remarkable for elevated blood pressure. Differential diagnosis: Infection, dehydration, metabolic abnormality, hypo/hyperglycemia, electrolyte disturbance, anemia, hypoxia, cardiac sources, intracerebral event, toxicologic, neurologic, as well as other pathologies. ER treatment provided: See below Diagnostics interpreted by me: ECG: EKG was obtained in the emergency department. My interpretation is wandering atrial pacemaker at 61 bpm. PACs were noted. Nonspecific ST segment abnormalities were noted. This was compared to a tracing from January 18, 2022. Sinus rhythm has been replaced with wandering atrial pacemaker otherwise no changes were noted. Cardiac Monitoring: An order was placed for continuous cardiac monitoring. The monitor shows a rate of 62 bpm with sinus rhythm. Laboratory studies: As stated above and show below. Imaging studies: See below. Radiographic imaging was reviewed by myself Consultation(s): I discussed this case with Dr[facility] Past Med/Surg History Medical History Encounter for pre-operative examination History of ID (myocardial infarction) Coronary artery disease CHF (congestive heart failure) Severe sepsis Inflammatory arthritis Gout Inclusion body myositis 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 HLD (hyperlipidemia) Neuropathy Surgical History S/P cardiac cath History of hysterectomy Family History Other Coronary heart disease Social History Smoking Status: Unknown if ever smoked Second Hand Exposure: No; Do You Dip or Chew Tobacco: No; Hx Alcohol Use: No Hx Substance Use: No Preferred Language: Ukrainian Communication Ability: Effective 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 Required: No Beliefs That Will Affect Care: None Current Living Situation: Alone Feels Safe at Home: Yes Assistive Devices: Walker Allergies Allergies Allergy/AdvReac Type Severity Reaction Status Date / Time No Known Allergies Allergy Verified 05/01/23 00:26 Home Meds Home Medications Medication Instructions Recorded Confirmed allopurinol 100 mg tablet 100 mg PO QAM 08/03/18 05/01/23 cholecalciferol (vitamin D3) 25 2,000 unit PO DAILY 08/03/18 05/01/23 mcg (1,000 unit) tablet (Vitamin D3) cyanocobalamin (vitamin B-12) 1,000 mcg IM MONTHLY 08/03/18 05/01/23 1,000 mcg/mL injection solution duloxetine 30 mg capsule,delayed 30 mg PO HS 08/03/18 05/01/23 release (Cymbalta) gabapentin 600 mg tablet 600 mg PO TID 08/03/18 05/01/23 (Neurontin) acetaminophen 500 mg tablet 500 mg PO QID PRN Pain 10/11/18 05/01/23 (Tylenol Extra Strength) aspirin 81 mg tablet,delayed 81 mg PO QAM 10/11/18 05/01/23 release (Ecotrin Low Strength) diclofenac sodium 1 % topical gel 2 g topical DIRECTED PRN Pain 01/16/22 05/01/23 ferrous sulfate 325 mg (65 mg 325 mg PO QAM 01/16/22 05/01/23 iron) tablet metoprolol succinate 25 mg 25 mg PO DAILY 01/16/22 05/01/23 tablet,extended release 24 hr pantoprazole 20 mg tablet,delayed 20 mg PO QAM 01/16/22 05/01/23 release prednisone 5 mg tablet 5 mg PO DAILY 01/16/22 05/01/23 turmeric root extract 500 mg 500 mg PO QAM 01/16/22 05/01/23 capsule levothyroxine 88 mcg tablet 88 mcg PO 6XWK 04/28/23 05/01/23 hydrocortisone 2.5 % topical cream 1 applic topical DIRECTED PRN 05/01/23 05/01/23 with perineal applicator Hemorrhoids Previous Rx's Medication Instructions Recorded atorvastatin 40 mg tablet 40 mg PO HS #90 tabs 06/06/19 amlodipine 5 mg tablet (Norvasc) 5 mg PO QAM #1 tab 01/22/22 cefdinir 300 mg capsule 300 mg PO BID 5 days #10 caps 04/30/23 oxycodone-acetaminophen 5 mg-325 1 tab PO Q6H PRN pain #10 tabs 04/30/23 mg tablet (Percocet) Results & Data (ED) Vital Signs Vital Signs - 24 hr 04/30/23 22:36 04/30/23 22:45 04/30/23 23:38 Temperature 36.8 C Temperature Source Oral Pulse Rate 59 L 63 Pulse Rate [Apical] 56 L Respiratory Rate 17 19 Respiratory Effort / Characteristics Non-Labored Spontaneous Respiratory Depth Normal Respiratory Pattern Regular Blood Pressure 114/73 Blood Pressure [Right Arm] 126/62 Blood Pressure Mean 86 Blood Pressure Mean [Right Arm] 83 Pulse Oximetry 92 93 Oxygen Delivery Method Room Air Room Air Sepsis Recent Fever Within 48 Hours No Sepsis New/Unexplained Change in Mental Status No Sepsis Action Taken by Nursing No Action Required 05/01/23 00:46 05/01/23 00:46 Temperature Temperature Source Pulse Rate 62 Pulse Rate [Apical] Respiratory Rate 18 Respiratory Effort / Characteristics Respiratory Depth Respiratory Pattern Blood Pressure Blood Pressure [Right Arm] 143/66 H Blood Pressure Mean Blood Pressure Mean [Right Arm] 91 Pulse Oximetry 94 Oxygen Delivery Method Room Air Sepsis Recent Fever Within 48 Hours Sepsis New/Unexplained Change in Mental Status Sepsis Action Taken by Skilled Nursing Medications Current Medication List: was personally reviewed by me Laboratory Data Attestation: I reviewed the patient's lab results. 04/30/23 23:52 04/30/23 23:52 Lab Results 04/30/23 Range/Units 23:52 WBC 14.40 H (4.8-10.8) K/ul RBC 3.28 L (4.20-5.40) M/uL Hgb 10.5 L (12.0-16.0) g/dl Hct 32.1 L (37.0-47.0) % MCV 97.9 (80.0-100.0) fL MCH 32.0 (25.0-34.0) pg MCHC 32.7 (32.0-36.0) g/dL RDW Std Deviation 53.1 H (36.4-46.3) fL RDW Coeff of Danya 14.7 H (11.5-14.5) % Plt Count 249 (130-400) K/uL MPV 10.5 (9.4-12.4) fL Immature Gran % (Auto) 0.5 % Neut % (Auto) 86.2 % Lymph % (Auto) 8.6 % [place] % (Auto) 4.0 % Eos % (Auto) 0.5 % Baso % (Auto) 0.2 % Neut # (Auto) 12.41 H (1.40-6.50) K/uL Lymph # (Auto) 1.24 (1.20-3.40) K/uL [place] # (Auto) 0.58 (0.11-0.59) K/uL Eos # (Auto) 0.07 (0.00-0.50) K/uL Baso # (Auto) 0.03 (0.00-0.20) K/uL Immature Gran # (Auto) 0.07 (0.01-0.20) K/uL PT 9.8 (9.0-12.0) Seconds INR 0.9 (0.9-1.1) APTT 27 (21-31) Seconds PTT Ratio 1.0 Sodium 136 (136-145) mmol/L Potassium 3.7 (3.5-5.1) mmol/L Chloride 106 (98-107) mmol/L Carbon Dioxide 22 (21-32) mmol/L Anion Gap 8 (3-11) BUN 23 (6-23) mg/dl Creatinine 0.63 (0.6-1.2) mg/dl Est Cr Clr Drug Dosing 60.9 ml/min Est GFR ( Amer) 96.1 ml/min Est GFR (Non-Af Amer) 82.9 ml/min BUN/Creatinine Ratio 36.5 H (10-20) Glucose 89 (70-99(Fasting)) mg/dl Calcium 9.3 (8.6-10.3) mg/dl Magnesium 1.8 (1.7-2.4) mg/dl Total Bilirubin 0.6 (0.2-1.0) mg/dl AST 19 (13-39) U/L ALT 13 (7-52) U/L Alkaline Phosphatase 85 (34-104) U/L Total Creatine Kinase 40 (26-192) U/L Troponin I High Sens 19.9 H (0-14) pg/ml C-Reactive Protein 34.58 H (0-0.5) mg/dl Total Protein 6.5 (6.0-8.3) gm/dl Albumin 3.1 L (3.4-5.0) gm/dl Globulin 3.4 (2.5-4.0) gm/dl Albumin/Globulin Ratio 0.9 (0.9-2) Procalcitonin 18.31 H (0-0.5) ng/ml TSH 0.347 (0.300-4.500) uIu/ml Administered Medications Sodium Chloride (Nss) 500 mls @ 999 mls/hr IV .Q31M ONE Stop: 05/01/23 01:29 Last Admin: 05/01/23 01:08 Dose: 999 mls/hr Documented By: MED Discontinued Medications Sodium Chloride (Nss) 500 mls @ 999 mls/hr IV .Q31M JERE Stop: 04/30/23 23:30 Last Infusion: 05/01/23 01:05 Dose: Infused Documented By: form drafter: 05/01/23 00:09 Dose: 999 mls/hr Documented By: MED Ceftriaxone Sodium (Rocephin) 2,000 mg in 50 mls @ 100 mls/hr IV NOW STA Stop: 05/01/23 00:06 Last Infusion: 05/01/23 01:18 Dose: Infused Documented By: form drafter: 05/01/23 00:37 Dose: 100 mls/hr Documented By: MED Imaging Data Attestation: I personally reviewed and interpreted this imaging study as follows: My Impression: 1 view chest x-ray was obtained in the emergency department. My interpretation is no free air, there is a left lower lobe infiltrate, this was compared to a chest x-ray from April 28, 2023. The infiltrate is new, final report pending. CT the brain was obtained in the emergency department. My interpretation is no intracranial hemorrhage or mass effect, final report below. Radiologist's Impression: Head CT 04/30/23 22:52 Exam(s): CT HEAD Without Contrast EXAM: CT Head Without Intravenous Contrast CLINICAL HISTORY: Reason for exam: ams. TECHNIQUE: Axial computed tomography images of the head/brain without intravenous contrast. Automated exposure control was utilized for the study. A dose lowering technique was utilized adhering to the principles of ALARA. COMPARISON: No relevant prior studies available. FINDINGS: Brain: Age-appropriate parenchymal volume. Mild chronic small vessel ischemic change in the periventricular cerebral white matter. Ying-white matter differentiation maintained. No acute intracranial hemorrhage, mass-effect, or edema. Ventricles: Unremarkable. No hydrocephalus. Bones/joints: Unremarkable. No acute fracture. Soft tissues: Unremarkable. Vasculature: Intracranial atherosclerosis. Sinuses: Unremarkable as visualized. No acute sinusitis. Mastoid air cells: Unremarkable as visualized. No mastoid effusion. Orbits: Bilateral lens replacements. IMPRESSION: No acute intracranial process. Electronically signed by: Pallavi Alfaro M.D. 05/01/23 00:05 AM Discharge Plan Visit Data Chief Complaint: Neuro Symptoms/Deficit Stated Complaint: LEFT SIDED WEAKNESS, SLURRED SPEECH ED Provider: Sumeet Eid Discharge Problem: Pneumonia, Weakness Patient Disposition: Being Evaluated by Hospitalist Forms Stand Alone Forms: My [facility] Prescriptions Prescriptions: No Action atorvastatin 40 mg tablet 40 mg PO HS Qty: 90 3RF gabapentin [Neurontin] 600 mg tablet 600 mg PO TID allopurinol 100 mg Tablet 100 mg PO QAM cyanocobalamin (vitamin B-12) 1,000 mcg/mL Solution 1,000 mcg IM MONTHLY Patient Comments: about 2 weeks ago duloxetine [Cymbalta] 30 mg capsule,delayed release(DR/EC) 30 mg PO HS cholecalciferol (vitamin D3) [Vitamin D3] 1,000 unit Tablet 2,000 unit PO DAILY aspirin [Ecotrin Low Strength] 81 mg tablet,delayed release (DR/EC) 81 mg PO QAM acetaminophen [Tylenol Extra Strength] 500 mg tablet 500 mg PO QID PRN (Reason: Pain) hydrocortisone 2.5 % cream with perineal applicator 1 applic topical DIRECTED PRN (Reason: Hemorrhoids) pantoprazole 20 mg tablet,delayed release (DR/EC) 20 mg PO QAM prednisone 5 mg tablet 5 mg PO DAILY metoprolol succinate 25 mg tablet extended release 24 hr 25 mg PO DAILY turmeric root extract 500 mg Capsule 500 mg PO QAM ferrous sulfate 325 mg (65 mg iron) tablet 325 mg PO QAM diclofenac sodium 1 % gel 2 g TOPICAL DIRECTED PRN (Reason: Pain) amlodipine [Norvasc] 5 mg Tablet 5 mg PO QAM Qty: 1 0RF levothyroxine 88 mcg tablet 88 mcg PO [id number] Rx Instructions: Only takes it on /Thu//Thu/Sat/Sun oxycodone-acetaminophen [Percocet] 5-325 mg tablet 1 tab PO Q6H PRN (Reason: pain) Qty: 10 0RF cefdinir 300 mg capsule 300 mg PO BID 5 Days Qty: 10 0RF Rx Instructions: ORDERED 04/30/23 FOR 5 DAYS Referrals Referrals: Elizabeth Vanegas DO [Primary Care Provider] - Discharge Problem: Pneumonia Qualifiers: Pneumonia type: due to unspecified organism Laterality: left Lung location: l ower lobe of lung Qualified Code(s): J18.9 - Pneumonia, unspecified organism
[2023-04-30] MEDS ORDERED: SODIUM CHLORIDE 0.9% 500 ML IV SCH (23:00)
[2023-04-30] MEDS ORDERED: cefTRIAXone SODIUM 2,000 MG/50 ML BAG IV STA (23:37)
--- NOTE | 2023-05-01 00:06 | CT Scan Report ---
Exam(s): CT HEAD Without Contrast EXAM: CT Head Without Intravenous Contrast CLINICAL HISTORY: Reason for exam: ams. TECHNIQUE: Axial computed tomography images of the head/brain without intravenous contrast. Automated exposure control was utilized for the study. A dose lowering technique was utilized adhering to the principles of ALARA. COMPARISON: No relevant prior studies available. FINDINGS: Brain: Age-appropriate parenchymal volume. Mild chronic small vessel ischemic change in the periventricular cerebral white matter. Ying-white matter differentiation maintained. No acute intracranial hemorrhage, mass-effect, or edema. Ventricles: Unremarkable. No hydrocephalus. Bones/joints: Unremarkable. No acute fracture. Soft tissues: Unremarkable. Vasculature: Intracranial atherosclerosis. Sinuses: Unremarkable as visualized. No acute sinusitis. Mastoid air cells: Unremarkable as visualized. No mastoid effusion. Orbits: Bilateral lens replacements. IMPRESSION: No acute intracranial process. Electronically signed by: Pallavi Alfaro M.D. 05/01/23 00:05 AM
[2023-05-01 00:14] LABS: Basophils # (auto) 0.03 K/uL (0.00-0.20); Basophils % (auto) 0.2 %; Eosinophils # (auto) 0.07 K/uL (0.00-0.50); Eosinophils % (auto) 0.5 %; Hematocrit (blood only) 32.1 % (37.0-47.0); Hemoglobin 10.5 g/dl (12.0-16.0); Immature Granulocytes # (auto) 0.07 K/uL (0.01-0.20); Immature Granulocytes % (auto) 0.5 %; Lymphocytes # (auto) 1.24 K/uL (1.20-3.40); Lymphocytes % (auto) 8.6 %; Mean Corpuscular Hgb Conc 32.7 g/dL (32.0-36.0); Mean Corpuscular Volume 97.9 fL (80.0-100.0); Mean Platelet Volume 10.5 fL (9.4-12.4); Monocytes # (auto) 0.58 K/uL (0.11-0.59); Neutrophils # (auto) 12.41 K/uL (1.40-6.50); Neutrophils % (auto) 86.2 %; Platelet Count 249 K/uL (130-400); RDW Coefficient of Variation 14.7 % (11.5-14.5); RDW Standard Deviation 53.1 fL (36.4-46.3); Red Blood Count 3.28 M/uL (4.20-5.40)
[2023-05-01 00:32] LABS: Albumin Globulin Ratio 0.9 (0.9-2); Albumin Level 3.1 gm/dl (3.4-5.0); BUN Creatinine Ratio 36.5 (10-20); Bilirubin,Total 0.6 mg/dl (0.2-1.0); Calcium 9.3 mg/dl (8.6-10.3); Creatinine Clr Calc Pharmacy 60.9 ml/min; Est GFR (African American) 96.1 ml/min; Est GFR (Non-African American) 82.9 ml/min; Globulin 3.4 gm/dl (2.5-4.0); Magnesium 1.8 mg/dl (1.7-2.4); Potassium 3.7 mmol/L (3.5-5.1); Total Protein 6.5 gm/dl (6.0-8.3)
[2023-05-01 00:39] LABS: INR 0.9 (0.9-1.1); Partial Thromboplastin Time 27 Seconds (21-31); Prothrombin Time 9.8 Seconds (9.0-12.0); Troponin I High Sensitivity 19.9 pg/ml (0-14)
[2023-05-01 00:48] LABS: Thyroid Stimulating Hormone 0.347 uIu/ml (0.300-4.500)
[2023-05-01 00:50] LABS: C Reactive Protein 34.58 mg/dl (0-0.5)
[2023-05-01] MEDS ORDERED: SODIUM CHLORIDE 0.9% 500 ML IV ONE (00:59)
--- NOTE | 2023-05-01 02:21 | History & Physical Report ---
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 coli was discharged yesterday to home as patient declined rehab was brought in back by her daughter because of ambulate dysfunction, weakness, left-sided more weaker than her usual. Daughter is in the room. The grandson was with the patient the patient for some time yesterday after discharge but the patient seemed very weak and he called the jon panda as he has to leave. When the daughter talked on the phone with patient around 2 PM she thought that patient having some slurring speech. The daughter drove from [place] to patient's house . Even 3 people it was difficult to make the patient stand up. And she was having some difficulty ambulating and her left leg seemed more weaker than her usual. And she was brought in here. As per daughter the slurred speech and left-sided weakness , she is not sure at what time they are started. Currently speech is back to her baseline. Daughter states patient has have some difficulty swallowing. She coughs after eating. Currently patient is alert and oriented. Denies any headache. Denies any blurred visions or double visions. No earaches. No runny nose. No sore throat. Has some cough. Denies any chest pain. No shortness of breath. No nausea. Denies abdominal pain. Daughter states patient had loose stools today which are dark in color. Patient takes iron pills. Micturating okay. Currently resting comfortably and hemodynamically stable. Strokelike symptoms With left-sided weakness Transient slurring speech Patient is also having generalized weakness CT head is okay Will do full stroke workup with CTA head and neck, MRI scan Monitor on telemetry floor Speech evaluation and PT OT evaluation Neurochecks Consult neurology in a.m. Close monitor New A-fib? Will follow repeat EKG and echo Consult cardiology in a.m. Close monitor Ambulatory dysfunction PT OT Needs placement Possible pneumonia Recent UTI Question of aspiration Will follow speech evaluation Empiric IV Zosyn and Doxy for now History of CAD s/p stent to RCA and circumflex in July 2018 On aspirin, metoprolol, statin Hypertension On metoprolol and amlodipine Will monitor Hyperlipidemia On statin History of CIPD Follows with 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 coli was discharged yesterday to home as patient declined rehab was brought in back by her daughter because of ambulate dysfunction, weakness, left-sided more weaker than her usual. Daughter is in the room. The grandson was with the patient for some time yesterday after discharge but the patient seemed very weak and he called the daughter as he has to leave. When the daughter talked on the phone with patient around 2 PM she thought that patient having some slurring speech. The daughter drove from [place] to patient's house . Even 3 people it was difficult to make the patient stand up. And she was having some difficulty ambulating and her left leg seemed more weaker than her usual. And she was brought in here. As per daughter the slurred speech and left-sided weakness , she is not sure at what ti me it started. Currently speech is back to her baseline. Daughter states patient has have some difficulty swallowing. She coughs after eating. Currently patient is alert and oriented. Denies any headache. Denies any blurred visions or double visions. No earaches. No runny nose. No sore throat. Has some cough. Denies any chest pain. No shortness of breath. No nausea. Denies abdominal pain. Daughter states patient had loose stools today which are dark in color. Patient takes iron pills. Micturating okay. Currently resting comfortably and hemodynamically stable. Past medical history. As mentioned above Past surgical history. Right side deep muscle biopsy. Removal of ovary oviducts in 1994. Sigmoidoscopy. Total hysterectomy. Social history. . No smoking. No alcohol use. No drug use. Family history. Mother of VT at age of 88. Father had emphysema. Allergies Allergy/AdvReac Type Severity Reaction Status Date / Time No Known Allergies Allergy Verified 05/01/23 00:26 Home Medications Medication Instructions Recorded Confirmed Type allopurinol 100 mg tablet 100 mg PO QAM 08/03/18 05/01/23 History cholecalciferol (vitamin D3) 25 2,000 unit PO DAILY 08/03/18 05/01/23 History mcg (1,000 unit) tablet (Vitamin D3) cyanocobalamin (vitamin B-12) 1,000 mcg IM MONTHLY 08/03/18 05/01/23 History 1,000 mcg/mL injection solution duloxetine 30 mg capsule,delayed 30 mg PO HS 08/03/18 05/01/23 History release (Cymbalta) gabapentin 600 mg tablet 600 mg PO TID 08/03/18 05/01/23 History (Neurontin) acetaminophen 500 mg tablet 500 mg PO QID PRN Pain 10/11/18 05/01/23 History (Tylenol Extra Strength) aspirin 81 mg tablet,delayed 81 mg PO QAM 10/11/18 05/01/23 History release (Ecotrin Low Strength) atorvastatin 40 mg tablet 40 mg PO HS #90 tabs 06/06/19 05/01/23 Rx diclofenac sodium 1 % topical gel 2 g topical DIRECTED PRN Pain 01/16/22 05/01/23 History ferrous sulfate 325 mg (65 mg 325 mg PO QAM 01/16/22 05/01/23 History iron) tablet metoprolol succinate 25 mg 25 mg PO DAILY 01/16/22 05/01/23 History tablet,extended release 24 hr pantoprazole 20 mg tablet,delayed 20 mg PO QAM 01/16/22 05/01/23 History release prednisone 5 mg tablet 5 mg PO DAILY 01/16/22 05/01/23 History turmeric root extract 500 mg 500 mg PO QAM 01/16/22 05/01/23 History capsule amlodipine 5 mg tablet (Norvasc) 5 mg PO QAM #1 tab 01/22/22 05/01/23 Rx levothyroxine 88 mcg tablet 88 mcg PO 6XWK 04/28/23 05/01/23 History cefdinir 300 mg capsule 300 mg PO BID 5 days #10 caps 04/30/23 05/01/23 Rx oxycodone-acetaminophen 5 mg-325 1 tab PO Q6H PRN pain #10 tabs 04/30/23 05/01/23 Rx mg tablet (Percocet) hydrocortisone 2.5 % topical cream 1 applic topical DIRECTED PRN 05/01/23 05/01/23 History with perineal applicator Hemorrhoids Past Med/Surg History Medical History Encounter for pre-operative examination History of VT (myocardial infarction) Coronary artery disease CHF (congestive heart failure) Severe sepsis Inflammatory arthritis Gout Inclusion body myositis 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 HLD (hyperlipidemia) Neuropathy Surgical History S/P cardiac cath History of hysterectomy Family History Other Coronary heart disease Social History Smoking Status: Never smoker Second Hand Exposure: No; Do You Dip or Chew Tobacco: No; Hx Alcohol Use: No Hx Substance Use: No Preferred Language: Slovak Communication Ability: Effective Clinical Cytogeneticist Required: No Beliefs That Will Affect Care: None Current Living Situation: Alone Other Information That Helps Us Care for You: No Feels Safe at Home: Yes Safety Concerns: Feels Safe At This Time Assistive Devices: Denture - Upper, Denture - Lower and Walker Review of Systems Review of Systems: All systems reviewed & are unremarkable except as noted in HPI & below Physical Exam Physical Exam: General- not in distress Head- atraumatic Eyes- PERRL.EOMI ENT- oropharynx clear Neck- supple, no JVD. Lungs- clear to auscultation no wheezing or crackles Heart- irregular rhythm; no murmur, no gallop. Abdomen- normal bowel sounds, soft, nontender, no distension. Extremities- no pretibial edema, no erythema seen Neuro- alert, oriented x 3; PERRL, EOMI; no facial palsy; no dysarthria; motor 3-4/5 right extremities 2/5 left upper extremity 1/5 left lower extremity, sensations intact, position sense intact; Skin- warm & dry Results & Data Results & Data Vital Signs (Past 12 Hours) Vital Signs Temp Pulse Pulse Resp BP BP Pulse Ox 05/01/23 00:46 143/66 H 05/01/23 00:46 62 18 94 04/30/23 23:38 56 L 19 126/62 93 04/30/23 22:45 63 04/30/23 22:36 36.8 C 59 L 17 114/73 92 O2 Del Method 05/01/23 00:46 05/01/23 00:46 Room Air 04/30/23 23:38 Room Air 04/30/23 22:45 04/30/23 22:36 Room Air Diagnostic Findings Laboratory Results WBC 14.40 K/ul (4.8-10.8) H 04/30/23 23:52 RBC 3.28 M/uL (4.20-5.40) L 04/30/23 23:52 Hgb 10.5 g/dl (12.0-16.0) L 04/30/23 23:52 Hct 32.1 % (37.0-47.0) L 04/30/23 23:52 MCV 97.9 fL (80.0-100.0) 04/30/23 23:52 MCH 32.0 pg (25.0-34.0) 04/30/23 23:52 MCHC 32.7 g/dL (32.0-36.0) 04/30/23 23:52 RDW Std Deviation 53.1 fL (36.4-46.3) H 04/30/23 23:52 RDW Coeff of Danya 14.7 % (11.5-14.5) H 04/30/23 23:52 Plt Count 249 K/uL (130-400) 04/30/23 23:52 MPV 10.5 fL (9.4-12.4) 04/30/23 23:52 Immature Gran % (Auto) 0.5 % 04/30/23 23:52 Neut % (Auto) 86.2 % 04/30/23 23:52 Lymph % (Auto) 8.6 % 04/30/23 23:52 [place] % (Auto) 4.0 % 04/30/23 23:52 Eos % (Auto) 0.5 % 04/30/23 23:52 Baso % (Auto) 0.2 % 04/30/23 23:52 Neut # (Auto) 12.41 K/uL (1.40-6.50) H 04/30/23 23:52 Lymph # (Auto) 1.24 K/uL (1.20-3.40) 04/30/23 23:52 [place] # (Auto) 0.58 K/uL (0.11-0.59) 04/30/23 23:52 Eos # (Auto) 0.07 K/uL (0.00-0.50) 04/30/23 23:52 Baso # (Auto) 0.03 K/uL (0.00-0.20) 04/30/23 23:52 Immature Gran # (Auto) 0.07 K/uL (0.01-0.20) 04/30/23 23:52 PT 9.8 Seconds (9.0-12.0) 04/30/23 23:52 INR 0.9 (0.9-1.1) 04/30/23 23:52 APTT 27 Seconds (21-31) 04/30/23 23:52 PTT Ratio 1.0 04/30/23 23:52 Sodium 136 mmol/L (136-145) 04/30/23 23:52 Potassium 3.7 mmol/L (3.5-5.1) 04/30/23 23:52 Chloride 106 mmol/L (98-107) 04/30/23 23:52 Carbon Dioxide 22 mmol/L (21-32) 04/30/23 23:52 Anion Gap 8 (3-11) 04/30/23 23:52 BUN 23 mg/dl (6-23) 04/30/23 23:52 Creatinine 0.63 mg/dl (0.6-1.2) 04/30/23 23:52 Est Cr Clr Drug Dosing 60.9 ml/min 04/30/23 23:52 Est GFR ( Amer) 96.1 ml/min 04/30/23 23:52 Est GFR (Non-Af Amer) 82.9 ml/min 04/30/23 23:52 BUN/Creatinine Ratio 36.5 (10-20) H 04/30/23 23:52 Glucose 89 mg/dl (70-99(Fasting)) 04/30/23 23:52 Calcium 9.3 mg/dl (8.6-10.3) 04/30/23 23:52 Magnesium 1.8 mg/dl (1.7-2.4) 04/30/23 23:52 Total Bilirubin 0.6 mg/dl (0.2-1.0) 04/30/23 23:52 AST 19 U/L (13-39) 04/30/23 23:52 ALT 13 U/L (7-52) 04/30/23 23:52 Alkaline Phosphatase 85 U/L (34-104) 04/30/23 23:52 Total Creatine Kinase 40 U/L (26-192) 04/30/23 23:52 Troponin I High Sens 19.9 pg/ml (0-14) H 04/30/23 23:52 C-Reactive Protein 34.58 mg/dl (0-0.5) H 04/30/23 23:52 Total Protein 6.5 gm/dl (6.0-8.3) 04/30/23 23:52 Albumin 3.1 gm/dl (3.4-5.0) L 04/30/23 23:52 Globulin 3.4 gm/dl (2.5-4.0) 04/30/23 23:52 Albumin/Globulin Ratio 0.9 (0.9-2) 04/30/23 23:52 Procalcitonin 18.31 ng/ml (0-0.5) H 04/30/23 23:52 TSH 0.347 uIu/ml (0.300-4.500) 04/30/23 23:[address] 04/30/23 22:52 Exam(s): CT HEAD Without Contrast EXAM: CT Head Without Intravenous Contrast CLINICAL HISTORY: Reason for exam: ams. TECHNIQUE: Axial computed tomography images of the head/brain without intravenous contrast. Automated exposure control was utilized for the study. A dose lowering technique was utilized adhering to the principles of ALARA. COMPARISON: No relevant prior studies available. FINDINGS: Brain: Age-appropriate parenchymal volume. Mild chronic small vessel ischemic change in the periventricular cerebral white matter. Ying-white matter differentiation maintained. No acute intracranial hemorrhage, mass-effect, or edema. Ventricles: Unremarkable. No hydrocephalus. Bones/joints: Unremarkable. No acute fracture. Soft tissues: Unremarkable. Vasculature: Intracranial atherosclerosis. Sinuses: Unremarkable as visualized. No acute sinusitis. Mastoid air cells: Unremarkable as visualized. No mastoid effusion. Orbits: Bilateral lens replacements. IMPRESSION: No acute intracranial process. Electronically signed by: Pallavi Alfaro M.D. 05/01/23 00:05 AM ECG Additional Comments: ECG. A-fib competing junctional pacemaker with PVCs rate of 65. T wave abnormality lateral leads Code Status & VTE Plan VTE Prophylaxis Plan VTE Prophylaxis will be ordered: Yes
[2023-05-01] MEDS ORDERED: OPTIRAY 320 125ml IV ONE (02:32)
--- NOTE | 2023-05-01 03:25 | CT Scan Report ---
Exam(s): CTA NECK With Contrast IV Amt: 117 ml optiray 320 EXAM: CT Angiography Neck With Intravenous Contrast CLINICAL HISTORY: Reason for exam: left sideded weakness?. TECHNIQUE: Routine carotid CT angiography protocol was performed with intravenous contrast. NASCET criteria using the distal ICAs for comparison were used for evaluation of stenoses. CTDI is 30.62 mGy and DLP is 464.17 mGy-cm. Automated exposure control was utilized for the study. A dose lowering technique was utilized adhering to the principles of ALARA. MIP reconstructed images were created and reviewed. CONTRAST: Patient received 117 ml optiray 320 of IV contrast COMPARISON: None. FINDINGS: Limitations: Motion artifact. VASCULATURE: Right common carotid artery: Unremarkable. No occlusion or significant stenosis. No dissection. Right internal carotid artery: Visualization of the carotid bifurcation and proximal segment is limited by motion. No occlusion, stenosis, or dissection visualized. Right external carotid artery: Unremarkable. No occlusion. Right vertebral artery: Unremarkable. No occlusion or significant stenosis. No dissection. Left common carotid artery: Unremarkable. No occlusion or significant stenosis. No dissection. Left internal carotid artery: Visualization of the carotid bifurcation and proximal segment is limited by motion. No occlusion, stenosis, or dissection visualized. Left external carotid artery: Unremarkable. No occlusion. Left vertebral artery: Unremarkable. No occlusion or significant stenosis. No dissection. Aorta: Conventional aortic arch branch anatomy. NECK: Bones/joints: Unremarkable. No acute fracture. Soft tissues: Unremarkable. Lung apices: Clear. Pleural space: Small left pleural effusion. CAROTID STENOSIS REFERENCE USING NASCET CRITERIA: % ICA stenosis = (1 - narrowest ICA diameter/diameter of distal cervical ICA) x 100. Mild - <50% stenosis. Moderate - 50-69% stenosis. Severe - 70-94% stenosis. Near occlusion - 95-99% stenosis. Occluded - 100% stenosis. IMPRESSION: No dissection, hemodynamically significant stenosis, or occlusion as visualized. Note that motion artifact limits characterization of the bilateral carotid bifurcations and proximal ICAs. Electronically signed by: Pallavi Alfaro M.D. 05/01/23 03:24 AM
--- NOTE | 2023-05-01 03:29 | CT Scan Report ---
Exam(s): CTA HEAD With Contrast IV Amt: 117 ml optiray 320 EXAM: CT Angiography Head With Intravenous Contrast CLINICAL HISTORY: Reason for exam: cva? left sided weakness. TECHNIQUE: Axial computed tomographic angiography images of the head with intravenous contrast. CTDI is 30.62 mGy and DLP is 464.17 mGy-cm. Automated exposure control was utilized for the study. A dose lowering technique was utilized adhering to the principles of ALARA. MIP reconstructed images were created and reviewed. CONTRAST: Patient received 117 ml optiray 320 of IV contrast COMPARISON: CT head 04/30/23 FINDINGS: Right internal carotid artery: No acute findings. Intracranial segment is patent with no significant stenosis. No aneurysm. Right anterior cerebral artery: Unremarkable. No occlusion or significant stenosis. No aneurysm. Right middle cerebral artery: Unremarkable. No occlusion or significant stenosis. No aneurysm. Right posterior cerebral artery: Hypoplastic right P1 segment with origin of the right CARGO AND CONTAINER INSPECTOR. No occlusion or significant stenosis. No aneurysm. Right vertebral artery: Right vertebral artery terminates in PICA, a developmental variant. Left internal carotid artery: No acute findings. Intracranial segment is patent with no significant stenosis. No aneurysm. Left anterior cerebral artery: Unremarkable. No occlusion or significant stenosis. No aneurysm. Left middle cerebral artery: Unremarkable. No occlusion or significant stenosis. No aneurysm. Left posterior cerebral artery: Absent left P1 segment with origin of the left CARGO AND CONTAINER INSPECTOR. Left vertebral artery: Unremarkable as visualized. Basilar artery: Unremarkable. No occlusion or significant stenosis. No aneurysm. Additional findings: Probable developmental venous anomaly within the parafalcine right frontal lobe. IMPRESSION: 1. Patent intracranial circulation. Electronically signed by: Pallavi Alfaro M.D. 05/01/23 03:28 AM
[2023-05-01] MEDS ORDERED: HYDROCORTISONE HC 2.5% CRM 30GM TUBE EXT PRN (03:53)
[2023-05-01] MEDS ORDERED: DICLOFENAC SOD 1% GEL 100 GM TUBE EXT PRN (03:53)
[2023-05-01] MEDS ORDERED: PHARMACIST DISCHARGE MED REC CONSULT PRN (03:53)
[2023-05-01] MEDS ORDERED: POLYETHYLENE (MIRALAX) 17 GM PACK PO PRN (03:53)
[2023-05-01] MEDS ORDERED: NITROGLYCERIN SL 0.4 MG/TAB TAB SL PRN (03:53)
[2023-05-01] MEDS ORDERED: SODIUM CHLORIDE 0.9% 1,000 ML IV SCH (03:53)
[2023-05-01] MEDS ORDERED: ACETAMINOPHEN 325 MG TAB PO PRN (03:53)
[2023-05-01] MEDS ORDERED: oxyCODONE/ACETAMINOPHEN 5mg/325mg TAB PO PRN (03:53)
[2023-05-01] MEDS ORDERED: GADOBUTROL 30ML VIAL IV ONE (05:00)
[2023-05-01] MEDS ORDERED: DOXYCYCLINE HYCLATE 100 MG in DEXTROSE 5% MINI-B 100 ML IV SCH (06:00)
--- OUTSIDE RECORDS SUMMARY | 2023-05-01 06:40 | External Medical Summary | Summary of Care ---
Author Name Unknown Organization [facility] Address [address] [facility] [place] [address] Phone [phone] Care Team Providers Care Karate Black Belt Name Role Phone Elizabeth Vanegas DO Primary Care Provider + [phone] Reason for Visit * Reason Onset Date Comments Home Health 04/28/2023 Encounter Details Date Type Department Care Team (Late st Contact Info) Description 04/28/2023 Telephone Family Medicine [address] [place] [address] Elizabeth Vanegas DO [address] [place] [address] [place] [address] Home Health Allergies No known active allergiesdocumented as of this encounter (statuses as of 04/29/2023) Medications Medication Sig Dispensed Refills Start Date [...] as of this encounter (statuses as of 04/29/2023) Active Problems Problem Noted Date Diagnosed Date [...] 69 10/11 Coronary artery disease invo lving [place] coronary artery of [place] heart without angina pectoris 08/10/2018 S/P angioplasty with stent 08/10/2018 History of NE (myocardial infarction) 08/10/2018 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 12/19/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 Mixed dyslipidemia 05/16/2005 7 OSTEOARTHROS NOS-L-LEG 04/18 documented as of this encounter (statuses as of 04/29/2023) Immunizations Name Administration Dates Next Due COVID-19 mRNA, LNP-s, No Pre serve, 2-Dose Series (Oligomerix) 07/10/2020,06/19/2020 COVID-19, LNP-s, No Preserve , Marlon-sucrose, Ages 12+ (Pfizer) 07/23/2021 Covid-19, Mrna, Lnp-s, Pf, B ivalent, 30 Mcg, IM, 12 yrs and above (Oligomerix) 02/04/2022 Pneumococcal Conjugate Vacc, 13 Valent (Prevnar) [...] Telephone Encounter - Elizabeth Vanegas DO - 04/29/2023 10:52 AM EST Okay. Happy to sign the form. * Telephone Encounter - Nicole Coker LPN - 04/28/2023 1:22 PM EST HH Concerns ferny RN, Calling from: Noe Ahumada Report/Concerns of: social work request Narrative: pt needs addition help in the home. She needs Aide and help setting up community services such as meals on wheels. Ferny is placing social and human services assistant order and sending it to the office to besigned. Pt's daughter recently passes away contributing to the need of additional help. This is FYI. documented in this encounter Plan of Treatment Upcoming Encounters Date Type Department Care Team (Late st Contact Info) Description 06/04/2023 1:00 PM EST Office Visit Orthopaedics [address] [place] [id number] Koffi Logan MD [address] [id number] 09/29/2023 10:30 AM EDT Office Visit Family Medicine [address] [place] [phone] Elizabeth Vanegas DO [address] [place] [address] [place] [id number] 09/29/2023 11:30 AM EDT Office Visit Cardiology [address] [place] [address] Elton Smith PA-C [address] [place] [id number] Health Maintenance Due Date Last Done Comments [...] filedocumented as of this encounter Care Teams Karate Black Belt Relationship Specialty Start Date End Date Elizabeth Vanegas DO [address] [place] [address] [place] [address] PCP - General Internal Medicine 08/05/22 documented as of this encounter
[2023-05-01 06:42] LABS: Appearance Urine Clear (Clear); Bacteria Urine Automated Negative (Negative); Bilirubin Urine Negative (Negative); Blood Urine Negative (Negative); Color Urine Yellow; Epithelial Cell Urine Auto >30 /lpf (0-5); Glucose Urine UA Negative (Negative); Ketones Urine Negative (Negative); Leukocyte Esterase Urine Trace (Negative); Nitrite Urine Negative (Negative); Protein Urine Negative (Negative); RBC Urine Automated 0-4 /hpf (0-4); Specific Gravity Urine > 1.045 (1.000-1.030); Urobilinogen Urine Negative (Negative); pH Urine 5.5 (4.5-7.5)
--- NOTE | 2023-05-01 07:48 | XRay Report ---
XR chest 1V portable HISTORY: weakness COMPARISON: Chest 04/28/2023. FINDINGS: No pneumothorax. No pleural effusions. The heart is mildly enlarged. Mild elevation the rig ht hemidiaphragm, unchanged. There are patchy bibasilar airspace opacities most pronounced on the lef t. No evidence for pulmonary edema. There are calcifications in the aortic knob. IMPRESSION: Left greater than right patchy bibasilar airspace opacities. This is new from the prior study and lik pelon represents a pneumonia. This could be due to prior aspiration. ACT 112: Negative or not required by law. Electronically signed by: Jay Reynoso M.D. 05/01/2023 7:47 AM
[2023-05-01] MEDS ORDERED: PIPERACILLIN/TAZOBACTAM 4.5 GM in DEXTROSE 5% MINI-B 100 ML IV SCH (08:00)
--- NOTE | 2023-05-01 08:11 | Magnetic Resonance Report ---
Brain MRI WITH AND WITHOUT CONTRAST HISTORY: Left-sided weakness. Slurred speech. Possible stroke. cva? TECHNIQUE: Multiplanar multisequence MRI of the brain was performed both before and after the intrave nous administration of contrast. COMPARISON STUDY: Head CT 05/01/2023. FINDINGS: There is no mass, hematoma, midline shift, or acute infarct. The paranasal sinuses are kimi r. The ventricles and sulci demonstrate mild age-related involutional changes. Scattered foci of T2 h yperintensity seen within the periventricular and subcortical white matter are nonspecific but sugges tive of mild microvascular ischemic changes. The major vascular flow voids at the skull base are well -maintained. Prior bilateral lens replacement. Small bilateral mastoid effusions are noted. Mild vidya on artifact. A right frontal lobe developmental venous anomaly is noted. This is considered to be a n ormal variant. IMPRESSION: 1. Motion artifact. No definite acute intracranial abnormality. 2. Scattered foci of T2 hyperintensity seen within the periventricular and subcortical white matter a re nonspecific but favor microvascular ischemic change. ACT 112: Negative or not required by law. Electronically signed by: Jay Reynoso M.D. 05/01/2023 8:09 AM
[2023-05-01 09:17] LABS: Basophils # (auto) 0.03 K/uL (0.00-0.20); Basophils % (auto) 0.2 %; Eosinophils # (auto) 0.13 K/uL (0.00-0.50); Hematocrit (blood only) 36.4 % (37.0-47.0); Hemoglobin 11.6 g/dl (12.0-16.0); Immature Granulocytes # (auto) 0.06 K/uL (0.01-0.20); Immature Granulocytes % (auto) 0.5 %; Lymphocytes # (auto) 0.97 K/uL (1.20-3.40); Lymphocytes % (auto) 7.3 %; Mean Corpuscular Hemoglobin 31.9 pg (25.0-34.0); Mean Corpuscular Hgb Conc 31.9 g/dL (32.0-36.0); Mean Platelet Volume 10.5 fL (9.4-12.4); Monocytes # (auto) 0.61 K/uL (0.11-0.59); Monocytes % (auto) 4.6 %; Neutrophils % (auto) 86.4 %; Platelet Count 235 K/uL (130-400); RDW Coefficient of Variation 14.8 % (11.5-14.5); RDW Standard Deviation 54.8 fL (36.4-46.3); Red Blood Count 3.64 M/uL (4.20-5.40)
[2023-05-01 09:27] LABS: Calcium 8.6 mg/dl (8.6-10.3); Creatinine Clr Calc Pharmacy 76.7 ml/min; Est GFR (African American) 103.7 ml/min; Est GFR (Non-African American) 89.5 ml/min; Magnesium 1.6 mg/dl (1.7-2.4); Potassium 3.3 mmol/L (3.5-5.1)
[2023-05-01 09:34] LABS: Troponin I High Sensitivity 25.1 pg/ml (0-14)
[2023-05-01 09:56] LABS: Calcium 8.3 mg/dl (8.6-10.3); Potassium 3.3 mmol/L (3.5-5.1)
[2023-05-01 10:02] LABS: BUN Creatinine Ratio 32.7 (10-20); Chol HDL Ratio 2.4 (0-5); Creatinine Clr Calc Pharmacy 73.8 ml/min; Est GFR (African American) 102.4 ml/min; Est GFR (Non-African American) 88.4 ml/min
--- NOTE | 2023-05-01 10:16 | Cardiology Consultation ---
Date of Consultation May 01, 2023 Assessment & Plan (1) Atrial fibrillation: (2) Weakness: (3) ASCVD (arteriosclerotic cardiovascular disease): (4) Dyslipidemia, goal LDL below 70: (5) HTN, goal below 130/80: Plan Initial EKG was interpreted by the computer as revealing atrial fibrillation with a competing junctional pacemaker with premature ventricular or aberrantly conducted complexes. Personal review of the EKG reveals sinus rhythm with with PACs and PVC, possible inferior infarct anterior infarct. Telemetry reveals sinus with atrial ectopy throughout. No atrial fibrillation. Elevated troponin. Asymptomatic. Chronic atherosclerotic coronary disease. Continue medical management. Continue low-dose beta-laurie, aspirin, and moderate intensity statin therapy. Dyslipidemia. LDL goal less than 70 mg/dL. Continue atorvastatin Hypertension. Controlled. Supervising Physician Co-Signing Physician Notes 82-year-old female present to the hospital with left-sided weakness. Initial ECG with concerns regarding atrial fibrillation. There is also concern regarding possible TIA versus CVA. Neurology consulted. MRI without evidence of CVA. Patient diagnosed with pneumonia and possible UTI. She is a poor historian. Denies chest pain or shortness of breath. No palpitations, lightheadedness, or dizziness. Telemetry reveals sinus rhythm with PACs, PVCs, as well as ectopic atrial rhythm. ECG on admission revealing sinus rhythm with competing junctional pacemaker and PACs. PE: VSS. Gen: NAD. Heart:Regular rhythm, normal S1-S2. No murmur. Lungs: Clear bilateral, no rales, rhonchi, wheeze. Abdomen: Soft nontender. Extremities: No edema. A/P: Agree with above PA-C history, physical exam, assessment and plan. ECG and telemetry reviewed. There is no evidence of atrial fibrillation. Continue medical management of chronic atherosclerotic coronary disease with beta- laurie, aspirin, and moderate density statin therapy. No further cardiac testing or intervention recommended at this time. Cardiology will sign off. Please call with additional concerns/questions. History of Present Illness Reason for Consultation: ? Atrial fibrillation Requesting Physician: Dr. Yin Attending Physician: Dr. Gonzalez History of Present Illness Ms. Diana Chandler is an 82-year-old female who is being seen at the request of Dr. Yin. Reason for consultation is ? atrial fibrillation. Patient hospitalized at [facility] April 28, 2022 to April 30, 2022, presenting to the ER with abdominal plan, nausea, and diarrhea. Workup revealed an acute appe ndicitis. Patient's status post April 28, 2023 appendectomy. Patient discharged to home on April 30, 2023 (complex social situation noted discharge summary), returning to the ER 8 hours later with weakness, possible left-sided weakness, and diarrhea. Stroke workup negative including brain MRI showing no definite acute intracranial abnormality though revealing scattered foci of T2 hyperintensity within the periventricular and subcortical white matter favoring microvascular ischemic change. Admission chest x-ray revealed left greater than right patchy bibasilar airspace opacities favoring pneumonia possibly due to aspiration (history of aspiration pneumonia). Initial EKG was interpreted by the computer as revealing atrial fibrillation with a competing junctional pacemaker with premature ventricular or aberrantly conducted complexes. Personal review of the EKG reveals sinus rhythm with with PACs and PVC, possible inferior infarct anterior infarct. Telemetry: Sinus with atrial ectopy. No atrial fibrillation. Resting echocardiography this morning was technically adequate, revealing normal LV systolic function, EF 60 to 65%. Wall motion was normal. Mild concentric LVH was observed along with grade 1 diastolic dysfunction. Left atrial size was normal. No significant valvular pathology observed. No interatrial shunt noted via injection of contrast. High Sensitivty Troponin 19.9 then 25.1 pg/mL No chest pain. No palpitations. No unusual shortness of breath. No lower extremity peripheral edema. No syncope. Problem List: Chronic atherosclerotic coronary disease. Status post acute inferior STEMI, asymptomatic, treated with drug-eluting stent to the 95% culprit lesion of the right coronary artery as well as drug-eluting stent to circumflex 70% lesion in July 2018. Dyslipidemia. Hypertension. Chronic inflammatory demyelinating polyneuritis. 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 GERD. Hiatal hernia. Gout. Osteoarthritis of both knees. Family History: Mother with an PR at 88. Father with emphysema. Social History: Never smoker. No smokeless tobacco. No alcohol. No illegal drug use. . 2 children. 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 Allergies Allergy/AdvReac Type Severity Reaction Status Date / Time No Known Allergies Allergy Verified 05/01/23 00:26 Home Medications Medication Instructions Recorded Confirmed Type allopurinol 100 mg tablet 100 mg PO QAM 08/03/18 05/01/23 History cholecalciferol (vitamin D3) 25 2,000 unit PO DAILY 08/03/18 05/01/23 History mcg (1,000 unit) tablet (Vitamin D3) cyanocobalamin (vitamin B-12) 1,000 mcg IM MONTHLY 08/03/18 05/01/23 History 1,000 mcg/mL injection solution duloxetine 30 mg capsule,delayed 30 mg PO HS 08/03/18 05/01/23 History release (Cymbalta) gabapentin 600 mg tablet 600 mg PO TID 08/03/18 05/01/23 History (Neurontin) acetaminophen 500 mg tablet 500 mg PO QID PRN Pain 10/11/18 05/01/23 History (Tylenol Extra Strength) aspirin 81 mg tablet,delayed 81 mg PO QAM 10/11/18 05/01/23 History release (Ecotrin Low Strength) atorvastatin 40 mg tablet 40 mg PO HS #90 tabs 06/06/19 05/01/23 Rx diclofenac sodium 1 % topical gel 2 g topical DIRECTED PRN Pain 01/16/22 05/01/23 History ferrous sulfate 325 mg (65 mg 325 mg PO QAM 01/16/22 05/01/23 History iron) tablet metoprolol succinate 25 mg 25 mg PO DAILY 01/16/22 05/01/23 History tablet,extended release 24 hr pantoprazole 20 mg tablet,delayed 20 mg PO QAM 01/16/22 05/01/23 History release prednisone 5 mg tablet 5 mg PO DAILY 01/16/22 05/01/23 History turmeric root extract 500 mg 500 mg PO QAM 01/16/22 05/01/23 History capsule amlodipine 5 mg tablet (Norvasc) 5 mg PO QAM #1 tab 01/22/22 05/01/23 Rx levothyroxine 88 mcg tablet 88 mcg PO 6XWK 04/28/23 05/01/23 History cefdinir 300 mg capsule 300 mg PO BID 5 days #10 caps 04/30/23 05/01/23 Rx oxycodone-acetaminophen 5 mg-325 1 tab PO Q6H PRN pain #10 tabs 04/30/23 05/01/23 Rx mg tablet (Percocet) hydrocortisone 2.5 % topical cream 1 applic topical DIRECTED PRN 05/01/23 05/01/23 History with perineal applicator Hemorrhoids Patient History Medical History Encounter for pre-operative examination History of PR (myocardial infarction) Coronary artery disease CHF (congestive heart failure) Severe sepsis Inflammatory arthritis Gout Inclusion body myositis 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 HLD (hyperlipidemia) Neuropathy Surgical History S/P cardiac cath History of hysterectomy Family History Other Coronary heart disease Social History Smoking Status: Never smoker Second Hand Exposure: No; Do You Dip or Chew Tobacco: No; Hx Alcohol Use: No Hx Substance Use: No Preferred Language: Malay Communication Ability: Effective [employer] Required: No Beliefs That Will Affect Care: None Current Living Situation: Alone Other Information That Helps Us Care for You: No Feels Safe at Home: Yes Safety Concerns: Feels Safe At This Time Assistive Devices: Denture - Upper, Denture - Lower and Walker Review of Systems Review of Systems: Patient confused, stating "I 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 Why are you working on a Thursday". Thus, a complete and accurate review of systems was unable to be obtained. Physical Exam Physical Exam: General: Alert to person and place. NAD. Skin: No rash Eyes: PER. Conjunctiva pink, sclera clear. HENT: Normocephalic. Atraumatic. Neck: No carotid bruits. No JVD. No HJR. Heart: Irregular with an occasional ectopic beat. Soft systolic murmur at the LLSB. Lungs: Clear to auscultation. Abdomen: +BS. Nontender. Extremities: No significant edema. No clubbing. No cyanosis Pulses: Posterior tibial=2/4. Limited neurological examination: No focal deficit. Results & Data Vital Signs (Past 12 Hours) Vital Signs Temp Pulse Pulse Resp BP BP Pulse Ox 05/01/23 08:23 36.6 C 64 16 138/80 95 05/01/23 07:59 71 05/01/23 05:45 36.7 C 65 18 138/74 94 05/01/23 05:35 36.7 C 65 18 138/74 94 01/19/24 05:29 67 05/01/23 04:42 18 05/01/23 02:56 64 19 139/65 05/01/23 02:42 68 05/01/23 00:46 143/66 H 05/01/23 00:46 62 18 94 04/30/23 23:38 56 L 19 126/62 93 04/30/23 22:45 63 04/30/23 22:36 36.8 C 59 L 17 114/73 92 O2 Del Method 05/01/23 08:23 Room Air 05/01/23 07:59 05/01/23 05:45 Room Air 05/01/23 05:35 Room Air 05/01/23 05:29 05/01/23 04:42 Room Air 05/01/23 02:56 05/01/23 02:42 05/01/23 00:46 05/01/23 00:46 Room Air 04/30/23 23:38 Room Air 04/30/23 22:45 04/30/23 22:36 Room Air Laboratory Results Cardiac Enzymes 04/30/23 05/01/23 Range/Units 23:52 08:46 AST 19 (13-39) U/L Troponin I High Sens 19.9 H 25.1 H (0-14) pg/ml Coagulation 04/30/23 Range/Units 23:52 PT 9.8 (9.0-12.0) Seconds APTT 27 (21-31) Seconds Lipids 05/01/23 Range/Units 08:46 Triglycerides 125 (0-150) mg/dl Cholesterol 81 (0-200) mg/dl HDL Cholesterol 34 mg/dl Cholesterol/HDL Ratio 2.4 (0-5) CBC 04/30/23 05/01/23 Range/Units 23:52 08:46 WBC 14.40 H 13.20 H (4.8-10.8) K/ul RBC 3.28 L 3.64 L (4.20-5.40) M/uL Hgb 10.5 L 11.6 L (12.0-16.0) g/dl Hct 32.1 L 36.4 L (37.0-47.0) % Plt Count 249 235 (130-400) K/uL Neut # (Auto) 12.41 H 11.40 H (1.40-6.50) K/uL Lymph # (Auto) 1.24 0.97 L (1.20-3.40) K/uL Tillman # (Auto) 0.58 0.61 H (0.11-0.59) K/uL Eos # (Auto) 0.07 0.13 (0.00-0.50) K/uL Baso # (Auto) 0.03 0.03 (0.00-0.20) K/uL Comprehensive Metabolic Panel 04/30/23 05/01/23 05/01/23 Range/Units 23:52 08:46 08:46 Sodium 136 137 136 (136-145) mmol/L Potassium 3.7 3.3 L (3.5-5.1) mmol/L Chloride 106 (98-107) mmol/L Carbon Dioxide 22 (21-32) mmol/L BUN 23 (6-23) mg/dl Creatinine 0.63 (0.6-1.2) mg/dl Glucose 89 (70-99(Fasting)) mg/dl Calcium 9.3 (8.6-10.3) mg/dl AST 19 (13-39) U/L ALT 13 (7-52) U/L Alkaline Phosphatase 85 (34-104) U/L Total Protein 6.5 (6.0-8.3) gm/dl Albumin 3.1 L (3.4-5.0) gm/dl 05/01/23 05/01/23 05/01/23 Range/Units 08:46 08:46 08:46 Sodium (136-145) mmol/L Potassium 3.3 L (3.5-5.1) mmol/L Chloride 108 H 108 H (98-107) mmol/L Carbon Dioxide 21 19 L (21-32) mmol/L BUN 18 (6-23) mg/dl Creatinine (0.6-1.2) mg/dl Glucose (70-99(Fasting)) mg/dl Calcium (8.6-10.3) mg/dl AST (13-39) U/L ALT (7-52) U/L Alkaline Phosphatase (34-104) U/L Total Protein (6.0-8.3) gm/dl Albumin (3.4-5.0) gm/dl 05/01/23 05/01/23 05/01/23 Range/Units 08:46 08:46 08:46 Sodium (136-145) mmol/L Potassium (3.5-5.1) mmol/L Chloride (98-107) mmol/L Carbon Dioxide (21-32) mmol/L BUN 17 (6-23) mg/dl Creatinine 0.50 L 0.52 L (0.6-1.2) mg/dl Glucose 94 91 (70-99(Fasting)) mg/dl Calcium 8.6 (8.6-10.3) mg/dl AST (13-39) U/L ALT (7-52) U/L Alkaline Phosphatase (34-104) U/L Total Protein (6.0-8.3) gm/dl Albumin (3.4-5.0) gm/dl 05/01/23 Range/Units 08:46 Sodium (136-145) mmol/L Potassium (3.5-5.1) mmol/L Chloride (98-107) mmol/L Carbon Dioxide (21-32) mmol/L BUN (6-23) mg/dl Creatinine (0.6-1.2) mg/dl Glucose (70-99(Fasting)) mg/dl Calcium 8.3 L (8.6-10.3) mg/dl AST (13-39) U/L ALT (7-52) U/L Alkaline Phosphatase (34-104) U/L Total Protein (6.0-8.3) gm/dl Albumin (3.4-5.0) gm/dl Intake and Output 04/30/23 05/01/23 05/01/23 22:59 06:59 14:59 Intake Total 1050 / 1050 100 / 100 Output Total 300 / 300 Balance 750 / 750 100 / 100 Intake: IV 1050 / 1050 100 / 100 Doxycycline Hyclate 100 mg In 100 / 100 Dextrose 5% Mini-B 100 ml @ 50 mls/hr IV Q12H JERE Rx#:[id number] Sodium Chloride 0.9% 500 ml @ 1000 / 1000 999 mls/hr IV .Q31M ONE Rx#: [id number] [id number] SODIUM 2,000 mg In 50 / 50 50 ml @ 100 mls/hr IV NOW STA Rx#:[id number] Output: Urine 300 / 300 Other: Weight 61.7 kg 57.6 kg Weight Measurement Method Built in [facility] Built in [facility]
[2023-05-01] MEDS: LEVOTHYROXINE SODIUM 88 MCG TABLET PO SCH (10:31)
[2023-05-01 10:32] LABS: Estimated Average Glucose 128 mg/dl; Hemoglobin A1C 6.1 % (4.5-5.6)
[2023-05-01] MEDS: allopurinoL 100 MG TAB PO SCH (10:32)
[2023-05-01] MEDS: METOPROLOL SUCC 25MG EXT REL TAB PO SCH (10:33)
[2023-05-01] MEDS: GABAPENTIN 600 MG TAB PO SCH ×3 (10:33→20:14)
[2023-05-01] MEDS: PANTOprazole 40 MG TAB PO SCH (10:34)
[2023-05-01] MEDS: ASPIRIN 81 MG ECTAB PO SCH (10:34)
[2023-05-01] MEDS: FERROUS SULFATE 325 MG TAB PO SCH (10:35)
[2023-05-01] MEDS: amLODIPine BESYLATE 5 MG TAB PO SCH (10:35)
[2023-05-01] MEDS: CHOLECALCIFEROL 1,000 UNITS 25 MCG TAB PO SCH (10:36)
[2023-05-01] MEDS: predniSONE 5 MG TAB PO SCH (10:36)
--- NOTE | 2023-05-01 10:56 | Neurology Consultation ---
Date of Consultation May 01, 2023 Assessment & Plan (1) Left-sided weakness: Suspect that her weakness has worsened and due to infection that she is currently being treated for. Plan Reviewed MRI of the brain shows no acute abnormalities. Continue to treat pneumonia/UTI. Please call neurology for further questions Telehealth Consultation Telehealth Information Telehealth Information: I performed this visit using a real-time telehealth connection between my location and the patients location ([facility]). After connecting through interactive tele-video, patient was identified by name and date of and/or wristband check.Patient (or authorized healthcare security representative) was informed that this was a telemedicine visit and it was being conducted confidentially over secure lines. My office door was closed and no one else was present in the room with me.Patient (or authorized healthcare security representative) provided consent to proceed with the visit, expressed an understanding of privacy and security of the telemedicine visit, and gave permission to have a hospital security representative in the room in order to assist with the visit and to conduct portions of the visit, as needed. I informed the patient (or authorized healthcare security representative) that I reviewed their record and presented the opportunity for them to ask any questions regarding the visit today. The patient agreed to participate. 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 coli . she was discharged to home as patient declined rehab was brought in back by her daughter because of ambulate dysfunction, weakness, left-sided more weaker than her usual. in addition to slurred speech The grandson was with the patient the patient for some time yesterday after discharge but the patient seemed very weak and he called the daughter as he has to leave. , her left leg seemed more weaker than her usual. . As per daughter the slurred speech and left-sided weakness , she is not sure at what time they started. Upon ED arrival the speech was back to her baseline, she was alert and oriented ,Daughter states patient has have some difficulty swallowing. She coughs after eating. She Denies any headache. Denies any blurred visions or double visions. No URI symptoms Has some cough. Denies any chest pain. No shortness of breath. No nausea. Denies abdominal pain. Daughter states patient had loose stools today which are dark in color. Patient takes iron pills. Micturating okay. Currently resting comfortably and hemodynamically stable. The patient tells me that her left arm and leg were weak since she was diagnosed with [employer], that affected her left side more than the right side mainly. She has been feeling weak since her last hospitalization and did not do well at home. She denies any numbness or weakness, has been trying to walk with a walker however she felt too weak. She has diffuse pain affecting her joints and her fingers Is currently being treated with antibiotics for the possible UTI. Allergies Allergy/AdvReac Type Severity Reaction Status Date / Time No Known Allergies Allergy Verified 05/01/23 00:26 Home Medications Medication Instructions Recorded Confirmed Type allopurinol 100 mg tablet 100 mg PO QAM 08/03/18 05/01/23 History cholecalciferol (vitamin D3) 25 2,000 unit PO DAILY 08/03/18 05/01/23 History mcg (1,000 unit) tablet (Vitamin D3) cyanocobalamin (vitamin B-12) 1,000 mcg IM MONTHLY 08/03/18 05/01/23 History 1,000 mcg/mL injection solution duloxetine 30 mg capsule,delayed 30 mg PO HS 08/03/18 05/01/23 History release (Cymbalta) gabapentin 600 mg tablet 600 mg PO TID 08/03/18 05/01/23 History (Neurontin) acetaminophen 500 mg tablet 500 mg PO QID PRN Pain 10/11/18 05/01/23 History (Tylenol Extra Strength) aspirin 81 mg tablet,delayed 81 mg PO QAM 10/11/18 05/01/23 History release (Ecotrin Low Strength) atorvastatin 40 mg tablet 40 mg PO HS #90 tabs 06/06/19 05/01/23 Rx diclofenac sodium 1 % topical gel 2 g topical DIRECTED PRN Pain 01/16/22 05/01/23 History ferrous sulfate 325 mg (65 mg 325 mg PO QAM 01/16/22 05/01/23 History iron) tablet metoprolol succinate 25 mg 25 mg PO DAILY 01/16/22 05/01/23 History tablet,extended release 24 hr pantoprazole 20 mg tablet,delayed 20 mg PO QAM 01/16/22 05/01/23 History release prednisone 5 mg tablet 5 mg PO DAILY 01/16/22 05/01/23 History turmeric root extract 500 mg 500 mg PO QAM 01/16/22 05/01/23 History capsule amlodipine 5 mg tablet (Norvasc) 5 mg PO QAM #1 tab 01/22/22 05/01/23 Rx levothyroxine 88 mcg tablet 88 mcg PO 6XWK 04/28/23 05/01/23 History cefdinir 300 mg capsule 300 mg PO BID 5 days #10 caps 04/30/23 05/01/23 Rx oxycodone-acetaminophen 5 mg-325 1 tab PO Q6H PRN pain #10 tabs 04/30/23 05/01/23 Rx mg tablet (Percocet) hydrocortisone 2.5 % topical cream 1 applic topical DIRECTED PRN 05/01/23 05/01/23 History with perineal applicator Hemorrhoids Patient History Medical History Encounter for pre-operative examination History of [place] (myocardial infarction) Coronary artery disease CHF (congestive heart failure) Severe sepsis Inflammatory arthritis Gout Inclusion body myositis 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 HLD (hyperlipidemia) Neuropathy Surgical History S/P cardiac cath History of hysterectomy Family History Other Coronary heart disease Social History Smoking Status: Never smoker Second Hand Exposure: No; Do You Dip or Chew Tobacco: No; Hx Alcohol Use: No Hx Substance Use: No Preferred Language: Kittitian Communication Ability: Effective Mess Cook Required: No Beliefs That Will Affect Care: None Current Living Situation: Alone Other Information That Helps Us Care for You: No Feels Safe at Home: Yes Safety Concerns: Feels Safe At This Time Assistive Devices: Denture - Upper, Denture - Lower and Walker Review of Systems Constitutional: Patient denies weight loss,had some fevers Eyes: Patient denies change in vision, tearing, pain, and redness ENT: Patient denies pain, bleeding, rhinorrhea, and dysphagia Cardiovascular: Patient denies chest pain, palpitation, dyspnea at rest, and dyspnea with exertion Respiratory: Patient denies shortness of breath, cough, wheezing, and productive cough GI: has chronic dysphagia , had diarrhea Skin: Patient denies rash, dryness, and itching Allergies/Immune System: Patient denies rhinorrhea, seasonal allergies, reaction to current MEDS, and reports diffuse joint pains Endocrine: Patient denies weight loss, weight gain, temperature intolerance, and excessive thirst Neurological: All negative unless mentioned in the HPI Physical Exam General NEUROLOGIC EXAMINATION: Mental Status:alert, oriented to time, place, person, normal recent memory, normal remote memory, normal attention span, normal concentration, normal language and normal fund of knowledge Cranial Nerves: CN 2 - no visual defect on confrontation and pupils round, equal, reactive to light CN 3, 4, 6 - extra-ocular movements intact and no nystagmus CN 5 - facial sensation intact CN 7 - no facial asymmetry CN 8 - intact hearing CN 9, 10 - palate symmetric, normal gag CN 11 - good shoulder shrug CN 12 - tongue midline MOTOR: Left pronator drift, left leg weakness with swan neck deformity of both hands, and There were no abnormal movements SENSATION: intact and symmetric to pinprick, light touch, vibration and joint position GAIT: Cannot walk COORDINATION: Had difficulty with [id number] testing REFLEXES: cannot assess over telemedicine Results & Data Vital Signs (Past 12 Hours) Vital Signs Temp Pulse Pulse Resp BP Pulse Ox O2 Del Method 05/01/23 08:23 36.6 C 64 16 138/80 95 Room Air 05/01/23 07:59 71 05/01/23 05:45 36.7 C 65 18 138/74 94 Room Air 05/01/23 05:35 36.7 C 65 18 138/74 94 Room Air 05/01/23 05:29 67 05/01/23 04:42 18 Room Air 05/01/23 02:56 64 19 139/65 05/01/23 02:42 68 05/01/23 00:46 143/66 H 05/01/23 00:46 62 18 94 Room Air 04/30/23 23:38 56 L 19 126/62 93 Room Air Laboratory Results Abnormal lab results 04/30/23 05/01/23 05/01/23 Range/Units 23:52 06:10 08:46 WBC 14.40 H 13.20 H (4.8-10.8) K/ul RBC 3.28 L 3.64 L (4.20-5.40) M/uL Hgb 10.5 L 11.6 L (12.0-16.0) g/dl Hct 32.1 L 36.4 L (37.0-47.0) % MCHC 31.9 L (32.0-36.0) g/dL RDW Std Deviation 53.1 H 54.8 H (36.4-46.3) fL RDW Coeff of Danya 14.7 H 14.8 H (11.5-14.5) % Neut # (Auto) 12.41 H 11.40 H (1.40-6.50) K/uL Lymph # (Auto) 0.97 L (1.20-3.40) K/uL Miner # (Auto) 0.61 H (0.11-0.59) K/uL Potassium 3.3 L (3.5-5.1) mmol/L Chloride (98-107) mmol/L Carbon Dioxide (21-32) mmol/L Creatinine (0.6-1.2) mg/dl BUN/Creatinine Ratio 36.5 H (10-20) Hemoglobin A1c (4.5-5.6) % Calcium (8.6-10.3) mg/dl Magnesium (1.7-2.4) mg/dl Troponin I High Sens 19.9 H (0-14) pg/ml C-Reactive Protein 34.58 H (0-0.5) mg/dl Albumin 3.1 L (3.4-5.0) gm/dl Procalcitonin 18.31 H (0-0.5) ng/ml Ur Specific [place] > 1.045 H (1.000-1.030) Ur Leukocyte Esterase Trace H (Negative) Urine WBC (Auto) 5-10 H (0-5) /hpf U Epithel Cells (Auto) >30 H (0-5) /lpf Urine Yeast Present A (None Prsent) 01/19/24 01/19/24 01/19/24 Range/Units 08:46 08:46 08:46 WBC (4.8-10.8) K/ul RBC (4.20-5.40) M/uL Hgb (12.0-16.0) g/dl Hct (37.0-47.0) % MCHC (32.0-36.0) g/dL RDW Std Deviation (36.4-46.3) fL RDW Coeff of Danya (11.5-14.5) % Neut # (Auto) (1.40-6.50) K/uL Lymph # (Auto) (1.20-3.40) K/uL Miner # (Auto) (0.11-0.59) K/uL Potassium 3.3 L (3.5-5.1) mmol/L Chloride 108 H 108 H (98-107) mmol/L Carbon Dioxide 19 L (21-32) mmol/L Creatinine 0.50 L 0.52 L (0.6-1.2) mg/dl BUN/Creatinine Ratio 36.0 H (10-20) Hemoglobin A1c (4.5-5.6) % Calcium (8.6-10.3) mg/dl Magnesium (1.7-2.4) mg/dl Troponin I High Sens (0-14) pg/ml C-Reactive Protein (0-0.5) mg/dl Albumin (3.4-5.0) gm/dl Procalcitonin (0-0.5) ng/ml Ur Specific [place] (1.000-1.030) Ur Leukocyte Esterase (Negative) Urine WBC (Auto) (0-5) /hpf U Epithel Cells (Auto) (0-5) /lpf Urine Yeast (None Prsent) 05/01/23 Range/Units 08:46 WBC (4.8-10.8) K/ul RBC (4.20-5.40) M/uL Hgb (12.0-16.0) g/dl Hct (37.0-47.0) % MCHC (32.0-36.0) g/dL RDW Std Deviation (36.4-46.3) fL RDW Coeff of Danya (11.5-14.5) % Neut # (Auto) (1.40-6.50) K/uL Lymph # (Auto) (1.20-3.40) K/uL Miner # (Auto) (0.11-0.59) K/uL Potassium (3.5-5.1) mmol/L Chloride (98-107) mmol/L Carbon Dioxide (21-32) mmol/L Creatinine (0.6-1.2) mg/dl BUN/Creatinine Ratio 32.7 H (10-20) Hemoglobin A1c 6.1 H (4.5-5.6) % Calcium 8.3 L (8.6-10.3) mg/dl Magnesium 1.6 L (1.7-2.4) mg/dl Troponin I High Sens 25.1 H (0-14) pg/ml C-Reactive Protein (0-0.5) mg/dl Albumin (3.4-5.0) gm/dl Procalcitonin (0-0.5) ng/ml Ur Specific [place] (1.000-1.030) Ur Leukocyte Esterase (Negative) Urine WBC (Auto) (0-5) /hpf U Epithel Cells (Auto) (0-5) /lpf Urine Yeast (None Prsent) Diagnostic Findings Chest X-Ray 04/30/23 22:52 XR chest 1V portable HISTORY: weakness COMPARISON: Chest 04/28/2023. FINDINGS: No pneumothorax. No pleural effusions. The heart is mildly enlarged. Mild elevation the right hemidiaphragm, unchanged. There are patchy bibasilar airspace opacities most pronounced on the left. No evidence for pulmonary edema. There are calcifications in the aortic knob. IMPRESSION: Left greater than right patchy bibasilar airspace opacities. This is new from the prior study and likely represents a pneumonia. This could be due to prior aspiration. ACT 112: Negative or not required by law. Electronically signed by: Jay Reynoso M.D. 05/01/2023 7:[address] 04/30/23 22:52 Exam(s): CT HEAD Without Contrast EXAM: CT Head Without Intravenous Contrast CLINICAL HISTORY: Reason for exam: ams. TECHNIQUE: Axial computed tomography images of the head/brain without intravenous contrast. Automated exposure control was utilized for the study. A dose lowering technique was utilized adhering to the principles of ALARA. COMPARISON: No relevant prior studies available. FINDINGS: Brain: Age-appropriate parenchymal volume. Mild chronic small vessel ischemic change in the periventricular cerebral white matter. Ying-white matter differentiation maintained. No acute intracranial hemorrhage, mass-effect, or edema. Ventricles: Unremarkable. No hydrocephalus. Bones/joints: Unremarkable. No acute fracture. Soft tissues: Unremarkable. Vasculature: Intracranial atherosclerosis. Sinuses: Unremarkable as visualized. No acute sinusitis. Mastoid air cells: Unremarkable as visualized. No mastoid effusion. Orbits: Bilateral lens replacements. IMPRESSION: No acute intracranial process. Electronically signed by: Pallavi Alfaro M.D. 05/01/23 00:05 AM Head CTA 05/01/23 02:17 Exam(s): CTA HEAD With Contrast IV Amt: 117 ml optiray 320 EXAM: CT Angiography Head With Intravenous Contrast CLINICAL HISTORY: Reason for exam: cva? left sided weakness. TECHNIQUE: Axial computed tomographic angiography images of the head with intravenous contrast. CTDI is 30.62 mGy and DLP is 464.17 mGy-cm. Automated exposure control was utilized for the study. A dose lowering technique was utilized adhering to the principles of ALARA. MIP reconstructed images were created and reviewed. CONTRAST: Patient received 117 ml optiray 320 of IV contrast COMPARISON: CT head 04/30/23 FINDINGS: Right internal carotid artery: No acute findings. Intracranial segment is patent with no significant stenosis. No aneurysm. Right anterior cerebral artery: Unremarkable. No occlusion or significant stenosis. No aneurysm. Right middle cerebral artery: Unremarkable. No occlusion or significant stenosis. No aneurysm. Right posterior cerebral artery: Hypoplastic right P1 segment with origin of the right CAT SITTER. No occlusion or significant stenosis. No aneurysm. Right vertebral artery: Right vertebral artery terminates in PICA, a developmental variant. Left internal carotid artery: No acute findings. Intracranial segment is patent with no significant stenosis. No aneurysm. Left anterior cerebral artery: Unremarkable. No occlusion or significant stenosis. No aneurysm. Left middle cerebral artery: Unremarkable. No occlusion or significant stenosis. No aneurysm. Left posterior cerebral artery: Absent left P1 segment with origin of the left CAT SITTER. Left vertebral artery: Unremarkable as visualized. Basilar artery: Unremarkable. No occlusion or significant stenosis. No aneurysm. Additional findings: Probable developmental venous anomaly within the parafalcine right frontal lobe. IMPRESSION: 1. Patent intracranial circulation. Electronically signed by: Pallavi Alfaro M.D. 05/01/23 03:28 AM Neck CTA 05/01/23 02:17 Exam(s): CTA NECK With Contrast IV Amt: 117 ml optiray 320 EXAM: CT Angiography Neck With Intravenous Contrast CLINICAL HISTORY: Reason for exam: left sideded weakness?. TECHNIQUE: Routine carotid CT angiography protocol was performed with intravenous contrast. NASCET criteria using the distal ICAs for comparison were used for evaluation of stenoses. CTDI is 30.62 mGy and DLP is 464.17 mGy-cm. Automated exposure control was utilized for the study. A dose lowering technique was utilized adhering to the principles of ALARA. MIP reconstructed images were created and reviewed. CONTRAST: Patient received 117 ml optiray 320 of IV contrast COMPARISON: None. FINDINGS: Limitations: Motion artifact. VASCULATURE: Right common carotid artery: Unremarkable. No occlusion or significant stenosis. No dissection. Right internal carotid artery: Visualization of the carotid bifurcation and proximal segment is limited by motion. No occlusion, stenosis, or dissection visualized. Right external carotid artery: Unremarkable. No occlusion. Right vertebral artery: Unremarkable. No occlusion or significant stenosis. No dissection. Left common carotid artery: Unremarkable. No occlusion or significant stenosis. No dissection. Left internal carotid artery: Visualization of the carotid bifurcation and proximal segment is limited by motion. No occlusion, stenosis, or dissection visualized. Left external carotid artery: Unremarkable. No occlusion. Left vertebral artery: Unremarkable. No occlusion or significant stenosis. No dissection. Aorta: Conventional aortic arch branch anatomy. NECK: Bones/joints: Unremarkable. No acute fracture. Soft tissues: Unremarkable. Lung apices: Clear. Pleural space: Small left pleural effusion. CAROTID STENOSIS REFERENCE USING NASCET CRITERIA: % ICA stenosis = (1 - narrowest ICA diameter/diameter of distal cervical ICA) x 100. Mild - <50% stenosis. Moderate - 50-69% stenosis. Severe - 70-94% stenosis. Near occlusion - 95-99% stenosis. Occluded - 100% stenosis. IMPRESSION: No dissection, hemodynamically significant stenosis, or occlusion as visualized. Note that motion artifact limits characterization of the bilateral carotid bifurcations and proximal ICAs. Electronically signed by: Pallavi Alfaro M.D. 05/01/23 03:24 AM Brain MRI 05/01/23 03:53 Brain MRI WITH AND WITHOUT CONTRAST HISTORY: Left-sided weakness. Slurred speech. Possible stroke. cva? TECHNIQUE: Multiplanar multisequence MRI of the brain was performed both before and after the intravenous administration of contrast. COMPARISON STUDY: Head CT 05/01/2023. FINDINGS: There is no mass, hematoma, midline shift, or acute infarct. The paranasal sinuses are clear. The ventricles and sulci demonstrate mild age- related involutional changes. Scattered foci of T2 hyperintensity seen within the periventricular and subcortical white matter are nonspecific but suggestive of mild microvascular ischemic changes. The major vascular flow voids at the skull base are well-maintained. Prior bilateral lens replacement. Small bilateral mastoid effusions are noted. Mild motion artifact. A right frontal lobe developmental venous anomaly is noted. This is considered to be a normal variant. IMPRESSION: 1. Motion artifact. No definite acute intracranial abnormality. 2. Scattered foci of T2 hyperintensity seen within the periventricular and subcortical white matter are nonspecific but favor microvascular ischemic change. ACT 112: Negative or not required by law. Electronically signed by: Jay Reynoso M.D. 05/01/2023 8:09 AM Medications Administered Home Medications Medication Instructions Recorded Confirmed Last Taken allopurinol 100 mg tablet 100 mg PO QAM 08/03/18 05/01/23 04/30/23 cholecalciferol (vitamin D3) 25 2,000 unit PO DAILY 08/03/18 05/01/23 04/30/23 mcg (1,000 unit) tablet (Vitamin D3) cyanocobalamin (vitamin B-12) 1,000 mcg IM MONTHLY 08/03/18 05/01/23 09/27/18 1,000 mcg/mL injection solution duloxetine 30 mg capsule,delayed 30 mg PO HS 08/03/18 05/01/23 04/30/23 release (Cymbalta) gabapentin 600 mg tablet 600 mg PO TID 08/03/18 05/01/23 04/30/23 (Neurontin) acetaminophen 500 mg tablet 500 mg PO QID PRN Pain 10/11/18 05/01/23 10/11/18 (Tylenol Extra Strength) aspirin 81 mg tablet,delayed 81 mg PO QAM 10/11/18 05/01/23 04/30/23 release (Ecotrin Low Strength) atorvastatin 40 mg tablet 40 mg PO HS #90 tabs 06/06/19 05/01/23 04/30/23 diclofenac sodium 1 % topical gel 2 g topical DIRECTED PRN Pain 01/16/22 05/01/23 Unknown ferrous sulfate 325 mg (65 mg 325 mg PO QAM 01/16/22 05/01/23 04/30/23 iron) tablet metoprolol succinate 25 mg 25 mg PO DAILY 01/16/22 05/01/23 04/30/23 tablet,extended release 24 hr pantoprazole 20 mg tablet,delayed 20 mg PO QAM 01/16/22 05/01/23 04/30/23 release prednisone 5 mg tablet 5 mg PO DAILY 01/16/22 05/01/23 04/30/23 turmeric root extract 500 mg 500 mg PO QAM 01/16/22 05/01/23 04/30/23 capsule amlodipine 5 mg tablet (Norvasc) 5 mg PO QAM #1 tab 01/22/22 05/01/23 04/30/23 levothyroxine 88 mcg tablet 88 mcg PO [id number] 04/28/23 05/01/23 04/30/23 cefdinir 300 mg capsule 300 mg PO BID 5 days #10 caps 04/30/23 05/01/23 04/30/23 oxycodone-acetaminophen 5 mg-325 1 tab PO Q6H PRN pain #10 tabs 04/30/23 05/01/23 Unknown mg tablet (Percocet) hydrocortisone 2.5 % topical cream 1 applic topical DIRECTED PRN 05/01/23 05/01/23 Unknown with perineal applicator Hemorrhoids Active Medications Generic Name Dose Route Start Last Admin Trade Name Freq PRN Reason Stop Dose Admin Allopurinol 100 mg 05/01/23 09:00 05/01/23 10:32 Allopurinol 100 Mg Tab PO 05/31/23 08:59 100 mg QAM JERE Administration Amlodipine Besylate 5 mg 05/01/23 09:00 05/01/23 10:35 Amlodipine Besylate 5 Mg Tab PO 05/31/23 08:59 5 mg QAM JERE Administration Aspirin 81 mg 05/01/23 09:00 05/01/23 10:34 Aspirin 81 Mg Ectab PO 05/31/23 08:59 81 mg QAM JERE Administration Ferrous Sulfate 325 mg 05/01/23 09:00 05/01/23 10:35 Ferrous Sulfate 325 Mg Tab PO 05/31/23 08:59 325 mg QAM JERE Administration Gabapentin 600 mg 05/01/23 09:00 05/01/23 10:33 Gabapentin 600 Mg Tab PO 05/31/23 08:59 600 mg TID JERE Administration Sodium Chloride 1,000 mls @ 80 mls/hr 05/01/23 03:53 05/01/23 06:08 Nss IV 05/01/23 16:22 80 mls/hr .[id number] JERE Administration Levothyroxine Sodium 88 mcg 05/01/23 06:30 05/01/23 10:31 Levothyroxine Sodium 88 Mcg Tablet PO 05/31/23 06:29 88 mcg [id number] JERE Administration Metoprolol Succinate 25 mg 05/01/23 09:00 05/01/23 10:33 Metoprolol Succ 25mg Ext Rel Tab PO 05/31/23 08:59 25 mg DAILY JERE Administration Pantoprazole Sodium 40 mg 05/01/23 09:00 05/01/23 10:34 Pantoprazole 40 Mg Tab PO 05/31/23 08:59 40 mg QAM JERE Administration Prednisone 5 mg 05/01/23 09:00 05/01/23 10:36 Prednisone 5 Mg Tab PO 05/31/23 08:59 5 mg DAILY JERE Administration Vitamin D 2,000 units 05/01/23 09:00 05/01/23 10:36 Cholecalciferol 1,000 Units 25 Mcg Tab PO 05/31/23 08:59 2,000 units DAILY JERE Administration
--- NOTE | 2023-05-01 12:48 | Communication Note ---
Date of Service: May 01, 2023 Ms Chandler is a readmission for weakness and concern for aspiration pneumonia. Speech contacted on [facility] [employer] prior to discharge 04/30 and reported "patient is a known aspirator" and "patient knows about her swallowing issues and esophageal issues, but agrees to permissive aspiration" Long discussion with Daughter over phone. Discussed circumstances around discharge--patient at baseline prior to discharge, in which patient's prior level of function has been reportedly poor for over a year with multiple resources. Given the initial admission for appendicitis and not safety concerns, patient expressed high degree of capacity and desire to not be placed in a home or go to rehab. She notes that her "status" is not likely to improve after discussion today Given re-admission with notable sign of safety concern, patient reports more insight into the fact that home at this time is not safe and will engage with PT/OT more. Daughter, Yulisa, was unaware of history regarding aspiration with patient (documented since 2021 at speech eval) and verbalized understanding regarding the complexity of placement/rehab/home/patient capacity. Plan to work towards SNF/Rehab, with likelihood to pursue extermination supervisor placement. Discussion today noted that patient no longer wants full code. She declined any heroic efforts. Patient verbalized understanding and code status will be changed to DNR/DNI
[2023-05-01] MEDS ORDERED: POTASSIUM CHLORIDE CRTAB 20 MEQ TABCR PO STA (19:32)
[2023-05-01] MEDS: MAGNESIUM SULFATE / D5W 1 GM/100 ML BAG IV SCH ×2 (20:09→22:18)
[2023-05-01] MEDS: DOXYCYCLINE HYCLATE 100 MG CAP PO SCH (20:16)
[2023-05-01] MEDS: DULoxetine HCL 30 MG CAP PO SCH (20:16)
[2023-05-01] MEDS: CEFDINIR 300 MG CAP PO SCH (20:17)
[2023-05-01] MEDS: ATORVASTATIN 40 MG TAB PO SCH (20:17)
--- NOTE | 2023-05-02 06:35 | Electrocardiogram Report ---
Test Reason : Blood Pressure : / mmHG Vent. 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
[2023-05-02] MEDS: LEVOTHYROXINE SODIUM 88 MCG TABLET PO SCH (06:40)
[2023-05-02] MEDS: CHOLECALCIFEROL 1,000 UNITS 25 MCG TAB PO SCH (08:42)
[2023-05-02] MEDS: amLODIPine BESYLATE 5 MG TAB PO SCH (08:42)
[2023-05-02] MEDS: METOPROLOL SUCC 25MG EXT REL TAB PO SCH (08:42)
[2023-05-02] MEDS: ASPIRIN 81 MG ECTAB PO SCH (08:43)
[2023-05-02] MEDS: PANTOprazole 40 MG TAB PO SCH (08:43)
[2023-05-02] MEDS: predniSONE 5 MG TAB PO SCH (08:45)
[2023-05-02] MEDS: allopurinoL 100 MG TAB PO SCH (08:45)
[2023-05-02] MEDS: DOXYCYCLINE HYCLATE 100 MG CAP PO SCH ×2 (08:46→20:50)
[2023-05-02] MEDS: CEFDINIR 300 MG CAP PO SCH ×2 (08:46→20:49)
[2023-05-02] MEDS: GABAPENTIN 600 MG TAB PO SCH ×2 (08:46→13:41)
[2023-05-02 09:55] LABS: Basophils # (auto) 0.04 K/uL (0.00-0.20); Basophils % (auto) 0.3 %; Eosinophils % (auto) 0.6 %; Hematocrit (blood only) 39.5 % (37.0-47.0); Immature Granulocytes # (auto) 0.13 K/uL (0.01-0.20); Immature Granulocytes % (auto) 0.8 %; Lymphocytes % (auto) 10.3 %; Mean Corpuscular Hemoglobin 31.9 pg (25.0-34.0); Mean Corpuscular Hgb Conc 32.9 g/dL (32.0-36.0); Mean Corpuscular Volume 97.1 fL (80.0-100.0); Mean Platelet Volume 10.3 fL (9.4-12.4); Monocytes # (auto) 0.93 K/uL (0.11-0.59); Neutrophils # (auto) 12.71 K/uL (1.40-6.50); Platelet Count 334 K/uL (130-400); RDW Coefficient of Variation 14.6 % (11.5-14.5); RDW Standard Deviation 52.4 fL (36.4-46.3); Red Blood Count 4.07 M/uL (4.20-5.40); White Blood Count 15.51 K/ul (4.8-10.8)
[2023-05-02 10:11] LABS: BUN Creatinine Ratio 22.7 (10-20); Calcium 9.5 mg/dl (8.6-10.3); Creatinine Clr Calc Pharmacy 87.2 ml/min; Est GFR (African American) 108.2 ml/min; Est GFR (Non-African American) 93.3 ml/min; Magnesium 1.8 mg/dl (1.7-2.4); Phosphorus 2.3 mg/dl (2.5-4.9)
[2023-05-02] MEDS: FERROUS SULFATE 325 MG TAB PO SCH (10:30)
[2023-05-02] MEDS ORDERED: SODIUM PHOSPHATE 3 MMOL/1 ML INFUSION IV STA (15:25)
[2023-05-02] MEDS ORDERED: SODIUM PHOSPHATE 30 MMOL in DEXTROSE 5% 500 ML IV ONE (15:30)
[2023-05-02] MEDS ORDERED: ACETAMINOPHEN 1,000 MG/100 ML VIAL IV STA (15:36)
--- NOTE | 2023-05-02 15:37 | Hospitalist Progress Note ---
Date of Service May 02, 2023 Assessment & Plan (1) Weakness: (2) Delirium due to general medical condition: (3) Aspiration pneumonia: (4) ASCVD (arteriosclerotic cardiovascular disease): (5) HTN, goal below 130/80: (6) Dyslipidemia, goal LDL below 70: Plan Ms. Chandler is an 82-year-old female with significant past medical history of CAD with history of coronary angioplasty, HTN, diastolic dysfunction, history of cardiomyopathy, HLD, CIDP, chronic prednisone therapy secondary to severe osteoarthritis, hypothyroidism, inclusion body myositis, GERD who presents to ED secondary to abdominal pain, nausea and diarrhea since 3 AM on 04/28 and admitted on same day for acute apendicitis. Patient is now s/p 04/28 appendectomy. Patient was discharged on 04/30 to home, but returned that evening for encephalopathy. CXR on readmission revealed aspiration pneumonia. Patient is known aspirator and had agreed historically to permissive aspiration. Patient is delirious and has long standing history of delirium with hospital admissions per daughter. Discussion is in line with SNF/rehab v longer term placement contingent on patients course. Patient also with notable underlying grief/bereavement from passing of daughter last week--this is not helping ongoing delirium at this time. Infectious work up negative so far. Continuing cefdinir/doxy for uti/aspiration pneumonitis. #Acute delirium c/b hallucinations/delusions #Acute bereavement -multifactorial: UTI, recent surgery, grief from family situation, likely placement, recent aspiration, potentially pain -Reduced dose of gabapentin -Aspiration precautions -Delirium precautions -Behavioral health liason for support -Neurology consulted for stroke-like symptoms -MRI negative -Repeat infectious work up negative at this point -If leukocytosis continues to uptrend, will broaden and obtain CT ab/p iso recent surgical intervention #Acute on chronic aspiration #chronic esophageal dysfunction -ensure strict oral hygiene and aspiration precautions -Permissive aspiration per patient wishes -Doxycycline for cap coverage given consolidations #Ambulatory dysfunction ##Generalized Weakness -PT/OT, plan for rehab #Appendicitis s/p appendectomy 04/28 #Probable early sepsis w/ leukocytosis, tachycardia *improving pt was seen and examined by general surgery in ED, s/p appendectomy 04/28 General surgery cleared for DC on 04/30, incisions look stable -encourage ambulation as tolerated (limited 2/2 severe osteoarthritis and myositis) -PT/OT -Will give IV tylenol--pain likely contributing to delirium and no medications administered at this time -Will scheduled PO tylenol #Acute UTI *improved Urine with E coli >100K On cefdinir at this time, repeat urine with out growth, plan to complete 7 day course #Cholelithiasis --CT a/p:Cholelithiasis with gallbladder distention and mild fundal gallbladder wall thickening, also likely reactive. Findings could be correlated with ultrasound if further clinical concern. 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 Vanegas Dispo:plan for rehab Admission and Anticipated Discharge Date Admission Date: May 01, 2023 Subjective Patient irritable this morning. Not answering questions directly, notably delirious. Reports seeing her mother in the room and states she is "at [her] daughter's ." Able to be redirected briefly to take medications. Upon sitting patient forward during exam, noticed wincing in pain--concern pain likely contributing to delirium Physical Exam Constitutional: WD/WN, vitals as above Respiratory: diminshed, poor effort Cardiovascular: RRR, no murmur, no edema Gastrointestinal (Abdomen): incision sites clear, pain noted on mild palpation by observing face Skin: ecchymosis on bilateral knees (not present upon discharge) Results & Data Results & Data Vital Signs (Past 12 Hours) Vital Signs Temp Pulse Pulse Resp BP Pulse Ox O2 Del Method 05/02/23 15:12 36.8 C 85 16 157/85 H 94 Room Air 05/02/23 11:38 36.5 C 78 16 159/83 H 97 Room Air 05/02/23 08:30 36.6 C 90 20 172/92 H 91 Room Air 05/02/23 08:00 Room Air 05/02/23 07:10 106 H Laboratory Results Short CBC 05/02/23 Range/Units 09:27 WBC 15.51 H (4.8-10.8) K/ul Hgb 13.0 (12.0-16.0) g/dl Hct 39.5 (37.0-47.0) % Plt Count 334 (130-400) K/uL BMP 05/02/23 09:27 Sodium 137 Potassium 4.0 D Chloride 105 Carbon Dioxide 21 BUN 10 Creatinine 0.44 L Glucose 119 H Calcium 9.5 Medications Administered Home Medications Medication Instructions Recorded Confirmed Last Taken allopurinol 100 mg tablet 100 mg PO QAM 08/03/18 05/01/23 04/30/23 cholecalciferol (vitamin D3) 25 2,000 unit PO DAILY 08/03/18 05/01/23 04/30/23 mcg (1,000 unit) tablet (Vitamin D3) cyanocobalamin (vitamin B-12) 1,000 mcg IM MONTHLY 08/03/18 05/01/23 09/27/18 1,000 mcg/mL injection solution duloxetine 30 mg capsule,delayed 30 mg PO HS 08/03/18 05/01/23 04/30/23 release (Cymbalta) gabapentin 600 mg tablet 600 mg PO TID 08/03/18 05/01/23 04/30/23 (Neurontin) acetaminophen 500 mg tablet 500 mg PO QID PRN Pain 10/11/18 05/01/23 10/11/18 (Tylenol Extra Strength) aspirin 81 mg tablet,delayed 81 mg PO QAM 10/11/18 05/01/23 04/30/23 release (Ecotrin Low Strength) atorvastatin 40 mg tablet 40 mg PO HS #90 tabs 06/06/19 05/01/23 04/30/23 diclofenac sodium 1 % topical gel 2 g topical DIRECTED PRN Pain 01/16/22 05/01/23 Unknown ferrous sulfate 325 mg (65 mg 325 mg PO QAM 01/16/22 05/01/23 04/30/23 iron) tablet metoprolol succinate 25 mg 25 mg PO DAILY 01/16/22 05/01/23 04/30/23 tablet,extended release 24 hr pantoprazole 20 mg tablet,delayed 20 mg PO QAM 01/16/22 05/01/23 04/30/23 release prednisone 5 mg tablet 5 mg PO DAILY 1005/01/23 04/30/23 turmeric root extract 500 mg 500 mg PO QAM 01/16/22 05/01/23 04/30/23 capsule amlodipine 5 mg tablet (Norvasc) 5 mg PO QAM #1 tab 01/22/22 05/01/23 04/30/23 levothyroxine 88 mcg tablet 88 mcg PO [id number] 04/28/23 05/01/23 04/30/23 cefdinir 300 mg capsule 300 mg PO BID 5 days #10 caps 04/30/23 05/01/23 04/30/23 oxycodone-acetaminophen 5 mg-325 1 tab PO Q6H PRN pain #10 tabs 04/30/23 05/01/23 Unknown mg tablet (Percocet) hydrocortisone 2.5 % topical cream 1 applic topical DIRECTED PRN 05/01/23 05/01/23 Unknown with perineal applicator Hemorrhoids Active Medications Generic Name Dose Route Start Last Admin Trade Name Freq PRN Reason Stop Dose Admin Allopurinol 100 mg 05/01/23 09:00 05/02/23 08:45 Allopurinol 100 Mg Tab PO 05/31/23 08:59 100 mg QAM JERE Administration Amlodipine Besylate 5 mg 05/01/23 09:00 05/02/23 08:42 Amlodipine Besylate 5 Mg Tab PO 05/31/23 08:59 5 mg QAM JERE Administration Aspirin 81 mg 05/01/23 09:00 05/02/23 08:43 Aspirin 81 Mg Ectab PO 05/31/23 08:59 81 mg QAM JERE Administration Atorvastatin Calcium 40 mg 05/01/23 21:00 05/01/23 20:17 Atorvastatin 40 Mg Tab PO 05/31/23 20:59 40 mg HS JERE Administration Cefdinir 300 mg 05/01/23 20:00 05/02/23 08:46 Cefdinir 300 Mg Cap PO 05/05/23 09:01 300 mg BID JERE Administration Doxycycline Hyclate 100 mg 05/01/23 21:00 05/02/23 08:46 Doxycycline Hyclate 100 Mg Cap PO 05/07/23 23:59 100 mg BID JERE Administration Duloxetine HCl 30 mg 05/01/23 21:00 05/01/23 20:16 Duloxetine Hcl 30 Mg Cap PO 05/31/23 20:59 30 mg HS JERE Administration Ferrous Sulfate 325 mg 05/01/23 09:00 05/02/23 10:30 Ferrous Sulfate 325 Mg Tab PO 05/31/23 08:59 Not Given QAM JERE Levothyroxine Sodium 88 mcg 05/01/23 06:30 05/02/23 06:40 Levothyroxine Sodium 88 Mcg Tablet PO 05/31/23 06:29 88 mcg [id number] JERE Administration Metoprolol Succinate 25 mg 05/01/23 09:00 05/02/23 08:42 Metoprolol Succ 25mg Ext Rel Tab PO 05/31/23 08:59 25 mg DAILY JERE Administration Pantoprazole Sodium 40 mg 05/01/23 09:00 05/02/23 08:43 Pantoprazole 40 Mg Tab PO 05/31/23 08:59 40 mg QAM JERE Administration Prednisone 5 mg 05/01/23 09:00 05/02/23 08:45 Prednisone 5 Mg Tab PO 05/31/23 08:59 5 mg DAILY JERE Administration Vitamin D 2,000 units 05/01/23 09:00 05/02/23 08:42 Cholecalciferol 1,000 Units 25 Mcg Tab PO 05/31/23 08:59 2,000 units DAILY JERE Administration
[2023-05-02] MEDS ORDERED: ACETAMINOPHEN 325 MG TAB PO PRN (15:55)
[2023-05-02] MEDS: DULoxetine HCL 30 MG CAP PO SCH (20:50)
[2023-05-02] MEDS: ATORVASTATIN 40 MG TAB PO SCH (20:50)
[2023-05-02] MEDS: GABAPENTIN 300 MG CAP PO SCH (20:50)
[2023-05-03 05:56] LABS: Hematocrit (blood only) 39.4 % (37.0-47.0); Hemoglobin 13.5 g/dl (12.0-16.0); Mean Corpuscular Hemoglobin 32.3 pg (25.0-34.0); Mean Corpuscular Hgb Conc 34.3 g/dL (32.0-36.0); Mean Corpuscular Volume 94.3 fL (80.0-100.0); Mean Platelet Volume 10.3 fL (9.4-12.4); Platelet Count 339 K/uL (130-400); RDW Standard Deviation 48.7 fL (36.4-46.3); Red Blood Count 4.18 M/uL (4.20-5.40); White Blood Count 13.92 K/ul (4.8-10.8)
[2023-05-03 06:12] LABS: Albumin Globulin Ratio 0.9 (0.9-2); Albumin Level 3.2 gm/dl (3.4-5.0); BUN Creatinine Ratio 20.5 (10-20); Bilirubin,Total 0.5 mg/dl (0.2-1.0); Calcium 9.1 mg/dl (8.6-10.3); Creatinine Clr Calc Pharmacy 85.2 ml/min; Est GFR (African American) 108.2 ml/min; Est GFR (Non-African American) 93.3 ml/min; Globulin 3.5 gm/dl (2.5-4.0); Magnesium 1.5 mg/dl (1.7-2.4); Total Protein 6.7 gm/dl (6.0-8.3)
[2023-05-03] MEDS: LEVOTHYROXINE SODIUM 88 MCG TABLET PO SCH (06:23)
[2023-05-03 06:26] LABS: Basophils # (auto) 0.02 K/uL (0.00-0.20); Basophils % (auto) 0.1 %; Eosinophils # (auto) 0.15 K/uL (0.00-0.50); Eosinophils % (auto) 1.1 %; Immature Granulocytes # (auto) 0.15 K/uL (0.01-0.20); Immature Granulocytes % (auto) 1.1 %; Lymphocytes # (auto) 1.85 K/uL (1.20-3.40); Lymphocytes % (auto) 13.3 %; Monocytes # (auto) 1.06 K/uL (0.11-0.59); Monocytes % (auto) 7.6 %; Neutrophils # (auto) 10.69 K/uL (1.40-6.50); Neutrophils % (auto) 76.8 %
[2023-05-03] MEDS ORDERED: ACETAMINOPHEN 1,000 MG/100 ML VIAL IV STA (07:57)
[2023-05-03] MEDS: GABAPENTIN 300 MG CAP PO SCH ×3 (08:35→20:12)
[2023-05-03] MEDS: CEFDINIR 300 MG CAP PO SCH ×2 (08:36→20:10)
[2023-05-03] MEDS: DOXYCYCLINE HYCLATE 100 MG CAP PO SCH ×2 (08:36→20:10)
[2023-05-03] MEDS: predniSONE 5 MG TAB PO SCH (08:36)
[2023-05-03] MEDS: allopurinoL 100 MG TAB PO SCH (08:37)
[2023-05-03] MEDS: CHOLECALCIFEROL 1,000 UNITS 25 MCG TAB PO SCH (08:37)
[2023-05-03] MEDS: amLODIPine BESYLATE 5 MG TAB PO SCH (08:38)
[2023-05-03] MEDS: METOPROLOL SUCC 25MG EXT REL TAB PO SCH (08:38)
[2023-05-03] MEDS: PANTOprazole 40 MG TAB PO SCH (08:39)
[2023-05-03] MEDS: MAGNESIUM SULFATE / D5W 1 GM/100 ML BAG IV SCH ×4 (08:40→14:17)
[2023-05-03] MEDS: FERROUS SULFATE 325 MG TAB PO SCH (08:45)
[2023-05-03] MEDS: ASPIRIN 81 MG ECTAB PO SCH (08:45)
[2023-05-03] MEDS: POTASSIUM CHLORIDE / WTR 10 MEQ/100 ML PLCT IV SCH ×4 (09:14→12:56)
[2023-05-03] MEDS: ACETAMINOPHEN 325 MG TAB PO SCH ×2 (14:00→20:11)
--- NOTE | 2023-05-03 16:39 | Hospitalist Progress Note ---
Date of Service May 03, 2023 Assessment & Plan (1) Weakness: (2) Delirium due to general medical condition: (3) Aspiration pneumonia: (4) ASCVD (arteriosclerotic cardiovascular disease): (5) HTN, goal below 130/80: (6) Dyslipidemia, goal LDL below 70: Plan Ms. Chandler is an 82-year-old female with significant past medical history of CAD with history of coronary angioplasty, HTN, diastolic dysfunction, history of cardiomyopathy, HLD, CIDP, chronic prednisone therapy secondary to severe osteoarthritis, hypothyroidism, inclusion body myositis, GERD who presents to ED secondary to abdominal pain, nausea and diarrhea since 3 AM on 04/28 and admitted on same day for acute apendicitis. Patient is now s/p 04/28 appendectomy. Patient was discharged on 04/30 to home, but returned that evening for encephalopathy. CXR on readmission revealed aspiration pneumonia. Patient is known aspirator and had agreed historically to permissive aspiration. Patient is delirious and has long standing history of delirium with hospital admissions per daughter. Discussion is in line with SNF/rehab v longer term placement contingent on patients course. Patient also with notable underlying grief/bereavement from passing of daughter last week--this is not helping ongoing delirium at this time. Infectious work up negative so far. Continuing cefdinir/doxy for uti/aspiration pneumonitis. Overall, notable improvement in status--suspect pain contributed much more than anticipated as patient did not receive any prn's #Acute delirium c/b hallucinations/delusions #Acute bereavement -multifactorial: UTI, recent surgery, grief from family situation, likely placement, recent aspiration, potentially pain -Reduced dose of gabapentin -Aspiration precautions -Delirium precautions -Behavioral health liason for support -Neurology consulted for stroke-like symptoms -MRI negative -Repeat infectious work up negative at this point -If leukocytosis continues to uptrend, will broaden and obtain CT ab/p iso recent surgical intervention -Scheduled tylenol for baseline pain control #Acute on chronic aspiration #chronic esophageal dysfunction -ensure strict oral hygiene and aspiration precautions -Permissive aspiration per patient wishes -Doxycycline for cap coverage given consolidations #Ambulatory dysfunction ##Generalized Weakness -PT/OT, plan for rehab #Appendicitis s/p appendectomy 04/28 #Probable early sepsis w/ leukocytosis, tachycardia *improving pt was seen and examined by general surgery in ED, s/p appendectomy 04/28 General surgery cleared for DC on 04/30, incisions look stable -encourage ambulation as tolerated (limited 2/2 severe osteoarthritis and myositis) -PT/OT -Continue scheduled Tylenol #Acute UTI *improved Urine with E coli >100K On cefdinir at this time, repeat urine with out growth, plan to complete 7 day course #Cholelithiasis --CT a/p:Cholelithiasis with gallbladder distention and mild fundal gallbladder wall thickening, also likely reactive. Findings could be correlated with ultrasound if further clinical concern. 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 Vanegas Dispo:plan for rehab Admission and Anticipated Discharge Date Admission Date: May 01, 2023 Subjective NAEO Much better overnight and this morning. communicating better, no delusions this morning. Requesting to go home and upset about possibility of not returning after this admission Verbalized understanding for the first time that this is unlikely Reports IV tylenol helps with pain Physical Exam Constitutional: WD/WN, vitals as above Respiratory: normal respiratory effort, lungs clear to auscultation Cardiovascular: RRR, no murmur, no edema Gastrointestinal (Abdomen): normal bowel sounds, soft, nontender, no hepatosplenomegaly no overt tenderness Results & Data Results & Data Vital Signs (Past 12 Hours) Vital Signs Temp Pulse Pulse Resp BP Pulse Ox O2 Del Method 05/03/23 15:56 66 05/03/23 15:45 36.8 C 63 16 123/79 94 Room Air 05/03/23 11:41 37.6 C H 67 18 146/85 H 95 Room Air 05/03/23 08:17 36.6 C 73 16 142/97 H 94 Room Air 05/03/23 07:42 86 05/03/23 07:30 Room Air Laboratory Results Short CBC 05/03/23 Range/Units 05:30 WBC 13.92 H (4.8-10.8) K/ul Hgb 13.5 (12.0-16.0) g/dl Hct 39.4 (37.0-47.0) % Plt Count 339 (130-400) K/uL BMP 05/03/23 05:30 Sodium 138 Potassium 3.0 L D Chloride 103 Carbon Dioxide 24 BUN 9 Creatinine 0.44 L Glucose 109 H Calcium 9.1 Liver Function 05/03/23 Range/Units 05:30 Total Bilirubin 0.5 (0.2-1.0) mg/dl AST 21 (13-39) U/L ALT 19 (7-52) U/L Alkaline Phosphatase 90 (34-104) U/L Albumin 3.2 L (3.4-5.0) gm/dl Medications Administered Home Medications Medication Instructions Recorded Confirmed Last Taken allopurinol 100 mg tablet 100 mg PO QAM 08/03/18 05/01/23 04/30/23 cholecalciferol (vitamin D3) 25 2,000 unit PO DAILY 08/03/18 05/01/23 04/30/23 mcg (1,000 unit) tablet (Vitamin D3) cyanocobalamin (vitamin B-12) 1,000 mcg IM MONTHLY 08/03/18 05/01/23 09/27/18 1,000 mcg/mL injection solution duloxetine 30 mg capsule,delayed 30 mg PO HS 08/03/18 05/01/23 04/30/23 release (Cymbalta) gabapentin 600 mg tablet 600 mg PO TID 08/03/18 05/01/23 04/30/23 (Neurontin) acetaminophen 500 mg tablet 500 mg PO QID PRN Pain 10/11/18 05/01/23 10/11/18 (Tylenol Extra Strength) aspirin 81 mg tablet,delayed 81 mg PO QAM 10/11/18 05/01/23 04/30/23 release (Ecotrin Low Strength) atorvastatin 40 mg tablet 40 mg PO HS #90 tabs 06/06/19 05/01/23 04/30/23 diclofenac sodium 1 % topical gel 2 g topical DIRECTED PRN Pain 01/16/22 0 05/01/23 Unknown ferrous sulfate 325 mg (65 mg 325 mg PO QAM 01/16/22 05/01/23 04/30/23 iron) tablet metoprolol succinate 25 mg 25 mg PO DAILY 01/16/22 05/01/23 04/30/23 tablet,extended release 24 hr pantoprazole 20 mg tablet,delayed 20 mg PO QAM 01/16/22 05/01/23 04/30/23 release prednisone 5 mg tablet 5 mg PO DAILY 01/16/22 05/01/23 04/30/23 turmeric root extract 500 mg 500 mg PO QAM 01/16/22 05/01/23 04/30/23 capsule amlodipine 5 mg tablet (Norvasc) 5 mg PO QAM #1 tab 01/22/22 05/01/23 04/30/23 levothyroxine 88 mcg tablet 88 mcg PO [id number] 04/28/23 05/01/23 04/30/23 cefdinir 300 mg capsule 300 mg PO BID 5 days #10 caps 04/30/23 05/01/23 04/30/23 oxycodone-acetaminophen 5 mg-325 1 tab PO Q6H PRN pain #10 tabs 04/30/23 05/01/23 Unknown mg tablet (Percocet) hydrocortisone 2.5 % topical cream 1 applic topical DIRECTED PRN 05/01/23 05/01/23 Unknown with perineal applicator Hemorrhoids Active Medications Generic Name Dose Route Start Last Admin Trade Name Freq PRN Reason Stop Dose Admin Acetaminophen 650 mg 05/03/23 14:00 05/03/23 14:00 Acetaminophen 325 Mg Tab PO 06/02/23 13:59 650 mg Q6H JERE Administration Allopurinol 100 mg 05/01/23 09:00 05/03/23 08:37 Allopurinol 100 Mg Tab PO 05/31/23 08:59 100 mg QAM JERE Administration Amlodipine Besylate 5 mg 05/01/23 09:00 05/03/23 08:38 Amlodipine Besylate 5 Mg Tab PO 05/31/23 08:59 5 mg QAM JERE Administration Aspirin 81 mg 05/01/23 09:00 05/03/23 08:45 Aspirin 81 Mg Ectab PO 05/31/23 08:59 81 mg QAM JERE Administration Atorvastatin Calcium 40 mg 05/01/23 21:00 05/02/23 20:50 Atorvastatin 40 Mg Tab PO 05/31/23 20:59 40 mg HS JERE Administration Cefdinir 300 mg 05/01/23 20:00 05/03/23 08:36 Cefdinir 300 Mg Cap PO 05/05/23 09:01 300 mg BID JERE Administration Doxycycline Hyclate 100 mg 05/01/23 21:00 05/03/23 08:36 Doxycycline Hyclate 100 Mg Cap PO 05/07/23 23:59 100 mg BID JERE Administration Duloxetine HCl 30 mg 05/01/23 21:00 05/02/23 20:50 Duloxetine Hcl 30 Mg Cap PO 05/31/23 20:59 30 mg HS JERE Administration Ferrous Sulfate 325 mg 05/01/23 09:00 05/03/23 08:45 Ferrous Sulfate 325 Mg Tab PO 05/31/23 08:59 325 mg QAM JERE Administration Gabapentin 300 mg 05/02/23 21:00 05/03/23 14:00 Gabapentin 300 Mg Cap PO 06/01/23 20:59 300 mg TID JERE Administration Levothyroxine Sodium 88 mcg 05/01/23 06:30 05/03/23 06:23 Levothyroxine Sodium 88 Mcg Tablet PO 05/31/23 06:29 88 mcg [id number] JERE Administration Metoprolol Succinate 25 mg 05/01/23 09:00 05/03/23 08:38 Metoprolol Succ 25mg Ext Rel Tab PO 05/31/23 08:59 25 mg DAILY JERE Administration Pantoprazole Sodium 40 mg 05/01/23 09:00 05/03/23 08:39 Pantoprazole 40 Mg Tab PO 05/31/23 08:59 40 mg QAM JERE Administration Prednisone 5 mg 05/01/23 09:00 05/03/23 08:36 Prednisone 5 Mg Tab PO 05/31/23 08:59 5 mg DAILY JERE Administration Vitamin D 2,000 units 05/01/23 09:00 05/03/23 08:37 Cholecalciferol 1,000 Units 25 Mcg Tab PO 05/31/23 08:59 2,000 units DAILY JERE Administration
[2023-05-03] MEDS: ATORVASTATIN 40 MG TAB PO SCH (20:10)
[2023-05-03] MEDS: DULoxetine HCL 30 MG CAP PO SCH (20:11)
[2023-05-04] MEDS: ACETAMINOPHEN 325 MG TAB PO SCH ×4 (03:04→20:01)
[2023-05-04 07:47] LABS: Hematocrit (blood only) 35.6 % (37.0-47.0); Mean Corpuscular Hemoglobin 32.5 pg (25.0-34.0); Mean Corpuscular Hgb Conc 33.7 g/dL (32.0-36.0); Mean Corpuscular Volume 96.5 fL (80.0-100.0); Mean Platelet Volume 9.9 fL (9.4-12.4); Platelet Count 383 K/uL (130-400); RDW Coefficient of Variation 14.2 % (11.5-14.5); RDW Standard Deviation 50.1 fL (36.4-46.3); Red Blood Count 3.69 M/uL (4.20-5.40); White Blood Count 14.48 K/ul (4.8-10.8)
[2023-05-04] MEDS ORDERED: PIPER/TAZO 4.5g in D5W MINI-B 100 ML IV ONE (08:00)
[2023-05-04 08:17] LABS: BUN Creatinine Ratio 28.6 (10-20); Calcium 8.6 mg/dl (8.6-10.3); Creatinine Clr Calc Pharmacy 91.3 ml/min; Est GFR (African American) 109.9 ml/min; Est GFR (Non-African American) 94.8 ml/min; Phosphorus 2.9 mg/dl (2.5-4.9); Potassium 3.5 mmol/L (3.5-5.1)
[2023-05-04] MEDS ORDERED: POTASSIUM CHLORIDE CRTAB 20 MEQ TABCR PO STA (09:01)
[2023-05-04] MEDS: amLODIPine BESYLATE 5 MG TAB PO SCH (09:44)
[2023-05-04] MEDS: ASPIRIN 81 MG ECTAB PO SCH (09:46)
[2023-05-04] MEDS: predniSONE 5 MG TAB PO SCH (09:46)
[2023-05-04] MEDS: allopurinoL 100 MG TAB PO SCH (09:47)
[2023-05-04] MEDS: METOPROLOL SUCC 25MG EXT REL TAB PO SCH (09:47)
[2023-05-04] MEDS: DOXYCYCLINE HYCLATE 100 MG CAP PO SCH ×2 (09:48→20:00)
[2023-05-04] MEDS: CHOLECALCIFEROL 1,000 UNITS 25 MCG TAB PO SCH (09:48)
[2023-05-04] MEDS: GABAPENTIN 300 MG CAP PO SCH ×3 (09:50→20:01)
[2023-05-04] MEDS: FERROUS SULFATE 325 MG TAB PO SCH (09:53)
[2023-05-04] MEDS: ENOXAPARIN INJ 40 MG/0.4 ML SYR SQ SCH (09:53)
[2023-05-04] MEDS: PANTOprazole 40 MG TAB PO SCH (09:55)
[2023-05-04] MEDS ORDERED: ACETAMINOPHEN 1,000 MG/100 ML VIAL IV STA (10:56)
--- NOTE | 2023-05-04 11:01 | Hospitalist Progress Note ---
Date of Service May 04, 2023 Assessment & Plan (1) Weakness: (2) Delirium due to general medical condition: (3) Aspiration pneumonia: (4) ASCVD (arteriosclerotic cardiovascular disease): (5) HTN, goal below 130/80: (6) Dyslipidemia, goal LDL below 70: Plan Ms. Chandler is an 82-year-old female with significant past medical history of CAD with history of coronary angioplasty, HTN, diastolic dysfunction, history of cardiomyopathy, HLD, CIDP, chronic prednisone therapy secondary to severe osteoarthritis, hypothyroidism, inclusion body myositis, GERD who presents to ED secondary to abdominal pain, nausea and diarrhea since 3 AM on 04/28 and admitted on same day for acute apendicitis. Patient is now s/p 04/28 appendectomy. Patient was discharged on 04/30 to home, but returned that evening for encephalopathy. CXR on readmission revealed aspiration pneumonia. Patient is known aspirator and had agreed historically to permissive aspiration. Patient is delirious and has long standing history of delirium with hospital admissions per daughter. Discussion is in line with SNF/rehab v longer term placement contingent on patients course. Patient also with notable underlying grief/bereavement from passing of daughter last week--this is not helping ongoing delirium at this time. Infectious work up negative so far. Continuing cefdinir/doxy for uti/aspiration pneumonitis. Overall, notable improvement in status--suspect pain contributed much more than anticipated as patient did not receive any prn's Patient has a persistent leukocytosis, remains afebrile. Will obtain CT ab/p to rule out any post-op infections or contributing factors to WBC. Broadened abx in interim. #Acute delirium c/b hallucinations/delusions #Acute bereavement -multifactorial: UTI, recent surgery, grief from family situation, likely placement, recent aspiration, potentially pain -Reduced dose of gabapentin -Aspiration precautions -Delirium precautions -Behavioral health liason for support -Neurology consulted for stroke-like symptoms -MRI negative -Repeat infectious work up negative at this point -If leukocytosis continues to uptrend, will broaden and obtain CT ab/p iso recent surgical intervention -Scheduled tylenol for baseline pain control -IV tylenol helps for breakthrough -Increased gabapentin to home dosing #Acute on chronic aspiration *stbale #chronic esophageal dysfunction -ensure strict oral hygiene and aspiration precautions -Permissive aspiration per patient wishes #Persistent leukocytosis -afebrile, however recent abdominal surgery -Zosyn now, dc cefidinr/doxy -If no signs of intraabdominal infection, plan to d/c abx as patient received total 7 days abx from 04/28 #Ambulatory dysfunction ##Generalized Weakness -PT/OT, plan for rehab #Appendicitis s/p appendectomy 04/28 #Probable early sepsis w/ leukocytosis, tachycardia *improving pt was seen and examined by general surgery in ED, s/p appendectomy 04/28 General surgery cleared for DC on 04/30, incisions look stable -encourage ambulation as tolerated (limited 2/2 severe osteoarthritis and myositis) -PT/OT, plan for rehab -Continue scheduled Tylenol #Acute UTI *improved Urine with E coli >100K On cefdinir at this time, repeat urine with out growth; completed course #Cholelithiasis --CT a/p:Cholelithiasis with gallbladder distention and mild fundal gallbladder wall thickening, also likely reactive. Findings could be correlated with ultrasound if further clinical concern. 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 Vanegas Dispo:plan for rehab Admission and Anticipated Discharge Date Admission Date: May 01, 2023 Subjective Endorses some pain, mostly in fingers she relates to arthritis A bit withdrawn, irritated at going to rehab Denies fevers chills chest pain or other concerns Physical Exam Constitutional: WD/WN, vitals as above Respiratory: normal respiratory effort, lungs clear to auscultation Gastrointestinal (Abdomen): mild tenderness to abdomen Results & Data Results & Data Vital Signs (Past 12 Hours) Vital Signs Temp Pulse Pulse Resp BP Pulse Ox O2 Del Method 05/04/23 10:43 76 05/04/23 08:03 36.6 C 79 17 143/81 H 96 Room Air 05/04/23 03:00 36.5 C 71 16 157/84 H 94 Room Air Laboratory Results Short CBC 05/04/23 Range/Units 07:29 WBC 14.48 H (4.8-10.8) K/ul Hgb 12.0 (12.0-16.0) g/dl Hct 35.6 L (37.0-47.0) % Plt Count 383 (130-400) K/uL BMP 05/04/23 07:29 Sodium 137 Potassium 3.5 Chloride 103 Carbon Dioxide 26 BUN 12 Creatinine 0.42 L Glucose 96 Calcium 8.6 Medications Administered Home Medications Medication Instructions Recorded Confirmed Last Taken allopurinol 100 mg tablet 100 mg PO QAM 08/03/18 05/01/23 04/30/23 cholecalciferol (vitamin D3) 25 2,000 unit PO DAILY 08/03/18 05/01/23 04/30/23 mcg (1,000 unit) tablet (Vitamin D3) cyanocobalamin (vitamin B-12) 1,000 mcg IM MONTHLY 08/03/18 05/01/23 09/27/18 1,000 mcg/mL injection solution duloxetine 30 mg capsule,delayed 30 mg PO HS 08/03/18 05/01/23 04/30/23 release (Cymbalta) gabapentin 600 mg tablet 600 mg PO TID 08/03/18 05/01/23 04/30/23 (Neurontin) acetaminophen 500 mg tablet 500 mg PO QID PRN Pain 10/11/18 05/01/23 10/11/18 (Tylenol Extra Strength) aspirin 81 mg tablet,delayed 81 mg PO QAM 10/11/18 05/01/23 04/30/23 release (Ecotrin Low Strength) atorvastatin 40 mg tablet 40 mg PO HS #90 tabs 06/06/19 05/01/23 04/30/23 diclofenac sodium 1 % topical gel 2 g topical DIRECTED PRN Pain 01/16/22 05/01/23 Unknown ferrous sulfate 325 mg (65 mg 325 mg PO QAM 01/16/22 05/01/23 04/30/23 iron) tablet metoprolol succinate 25 mg 25 mg PO DAILY 01/16/22 05/01/23 04/30/23 tablet,extended release 24 hr pantoprazole 20 mg tablet,delayed 20 mg PO QAM 01/16/22 05/01/2324 release prednisone 5 mg tablet 5 mg PO DAILY 01/16/22 05/01/23 04/30/23 turmeric root extract 500 mg 500 mg PO QAM 01/16/22 05/01/23 04/30/23 capsule amlodipine 5 mg tablet (Norvasc) 5 mg PO QAM #1 tab 01/22/22 05/01/23 04/30/23 levothyroxine 88 mcg tablet 88 mcg PO [id number] 04/28/23 05/01/23 04/30/23 cefdinir 300 mg capsule 300 mg PO BID 5 days #10 caps 04/30/23 05/01/23 04/30/23 oxycodone-acetaminophen 5 mg-325 1 tab PO Q6H PRN pain #10 tabs 04/30/23 05/01/23 Unknown mg tablet (Percocet) hydrocortisone 2.5 % topical cream 1 applic topical DIRECTED PRN 05/01/23 05/01/23 Unknown with perineal applicator Hemorrhoids Active Medications Generic Name Dose Route Start Last Admin Trade Name Freq PRN Reason Stop Dose Admin Acetaminophen 650 mg 05/03/23 14:00 05/04/23 07:32 Acetaminophen 325 Mg Tab PO 06/02/23 13:59 650 mg Q6H JERE Administration Allopurinol 100 mg 05/01/23 09:00 05/04/23 09:47 Allopurinol 100 Mg Tab PO 05/31/23 08:59 100 mg QAM JERE Administration Amlodipine Besylate 5 mg 05/01/23 09:00 05/04/23 09:44 Amlodipine Besylate 5 Mg Tab PO 05/31/23 08:59 5 mg QAM JERE Administration Aspirin 81 mg 05/01/23 09:00 05/04/23 09:46 Aspirin 81 Mg Ectab PO 05/31/23 08:59 81 mg QAM JERE Administration Atorvastatin Calcium 40 mg 05/01/23 21:00 05/03/23 20:10 Atorvastatin 40 Mg Tab PO 05/31/23 20:59 40 mg HS JERE Administration Doxycycline Hyclate 100 mg 05/01/23 21:00 05/04/23 09:48 Doxycycline Hyclate 100 Mg Cap PO 05/07/23 23:59 100 mg BID JERE Administration Duloxetine HCl 30 mg 05/01/23 21:00 05/03/23 20:11 Duloxetine Hcl 30 Mg Cap PO 05/31/23 20:59 30 mg HS JERE Administration Enoxaparin Sodium 40 mg 05/04/23 09:00 05/04/23 09:53 Enoxaparin Inj 40 Mg/0.4 Ml Syr SQ 06/03/23 08:59 40 mg QAM JERE Administration Ferrous Sulfate 325 mg 05/01/23 09:00 05/04/23 09:53 Ferrous Sulfate 325 Mg Tab PO 05/31/23 08:59 325 mg QAM JERE Administration Levothyroxine Sodium 88 mcg 05/01/23 06:30 05/03/23 06:23 Levothyroxine Sodium 88 Mcg Tablet PO 05/31/23 06:29 88 mcg [id number] JERE Administration Metoprolol Succinate 25 mg 05/01/23 09:00 05/04/23 09:47 Metoprolol Succ 25mg Ext Rel Tab PO 05/31/23 08:59 25 mg DAILY JERE Administration Pantoprazole Sodium 40 mg 05/01/23 09:00 05/04/23 09:55 Pantoprazole 40 Mg Tab PO 05/31/23 08:59 40 mg QAM JERE Administration Prednisone 5 mg 05/01/23 09:00 05/04/23 09:46 Prednisone 5 Mg Tab PO 05/31/23 08:59 5 mg DAILY JERE Administration Vitamin D 2,000 units 05/01/23 09:00 05/04/23 09:48 Cholecalciferol 1,000 Units 25 Mcg Tab PO 05/31/23 08:59 2,000 units DAILY JERE Administration
[2023-05-04] MEDS: DICLOFENAC SOD 1% GEL 100 GM TUBE EXT SCH ×2 (12:57→20:00)
[2023-05-04] MEDS ORDERED: OPTIRAY 320 500ml IV ONE (14:02)
--- NOTE | 2023-05-04 15:16 | CT Scan Report ---
CT abd pelvis IV con only CLINICAL HISTORY: surgical abscess, persistent leukocytosis TECHNIQUE: Helical axial images of the abdomen and pelvis were obtained and displayed. Automated dose lowering techniques and/or adjustment according to patient size were utilized for this exam. This e xam was performed with intravenous contrast. CT DOSE: 625. mGy.cm COMPARISON: Comparison is made to CT chest 04/28/2023 FINDINGS: Lower chest: Bibasilar atelectasis versus scarring is seen. Liver: Unremarkable. No focal lesions are seen. Gallbladder and biliary tree: Distended gallbladder with layering sludge versus stones. Mild perichol ecystic fluid may be reactive. No definite wall thickening. No intra- or extrahepatic biliary ductal dilation. Pancreas: The pancreas is atrophic. Spleen: Unremarkable. Adrenals: Unremarkable. Kidneys and ureters: Right renal cyst is seen. Bladder: Unremarkable. Reproductive organs: Unremarkable. Bowel: Patient is status post appendectomy. There is a moderate hiatal hernia. Lymph nodes Retroperitoneal: Unremarkable. Pelvic: Unremarkable. Mesenteric: Unremarkable. Peritoneum: Peritoneal stranding is seen. No suspicious fluid collections are noted. Vessels: Atherosclerotic calcifications are seen. Abdominal wall: Calcified Bones: Degenerative changes in the visualized spine. IMPRESSION: 1. Postsurgical changes of appendectomy. No drainable fluid collections are seen. Peritoneal strandi ng is likely reactive. 2. Cholelithiasis with distention of the gallbladder and pericholecystic fluid which is likely react wendi. 3. Additional findings as above. ACT 112: Negative or not required by law. Electronically signed by: Jose Singh M.D. 05/04/2023 3:15 PM
[2023-05-04] MEDS: PIPERACILLIN/TAZOBACTAM 4.5 GM in DEXTROSE 5% MINI-B 100 ML IV SCH ×2 (16:21→21:07)
[2023-05-04] MEDS: ATORVASTATIN 40 MG TAB PO SCH (20:00)
[2023-05-04] MEDS: DULoxetine HCL 30 MG CAP PO SCH (20:00)
[2023-05-05] MEDS: DICLOFENAC SOD 1% GEL 100 GM TUBE EXT SCH ×5 (01:09→23:55)
[2023-05-05] MEDS: PIPERACILLIN/TAZOBACTAM 4.5 GM in DEXTROSE 5% MINI-B 100 ML IV SCH ×3 (04:39→20:19)
[2023-05-05] MEDS: LEVOTHYROXINE SODIUM 88 MCG TABLET PO SCH (04:41)
[2023-05-05] MEDS: ACETAMINOPHEN 325 MG TAB PO SCH ×2 (05:47→09:25)
[2023-05-05 07:13] LABS: Hematocrit (blood only) 34.2 % (37.0-47.0); Hemoglobin 11.6 g/dl (12.0-16.0); Mean Corpuscular Hgb Conc 33.9 g/dL (32.0-36.0); Mean Corpuscular Volume 94.2 fL (80.0-100.0); Mean Platelet Volume 10.2 fL (9.4-12.4); Platelet Count 465 K/uL (130-400); RDW Standard Deviation 48.1 fL (36.4-46.3); Red Blood Count 3.63 M/uL (4.20-5.40); White Blood Count 12.67 K/ul (4.8-10.8)
[2023-05-05 07:30] LABS: BUN Creatinine Ratio 22.4 (10-20); Calcium 8.9 mg/dl (8.6-10.3); Creatinine Clr Calc Pharmacy 66.1 ml/min; Est GFR (African American) 98.8 ml/min; Est GFR (Non-African American) 85.2 ml/min; Potassium 3.9 mmol/L (3.5-5.1)
[2023-05-05] MEDS: allopurinoL 100 MG TAB PO SCH (08:36)
[2023-05-05] MEDS: amLODIPine BESYLATE 5 MG TAB PO SCH (08:36)
[2023-05-05] MEDS: DOXYCYCLINE HYCLATE 100 MG CAP PO SCH ×2 (08:37→20:16)
[2023-05-05] MEDS: ENOXAPARIN INJ 40 MG/0.4 ML SYR SQ SCH (08:37)
[2023-05-05] MEDS: CHOLECALCIFEROL 1,000 UNITS 25 MCG TAB PO SCH (08:37)
[2023-05-05] MEDS: ASPIRIN 81 MG ECTAB PO SCH (08:37)
[2023-05-05] MEDS: FERROUS SULFATE 325 MG TAB PO SCH (08:38)
[2023-05-05] MEDS: METOPROLOL SUCC 25MG EXT REL TAB PO SCH (08:38)
[2023-05-05] MEDS: GABAPENTIN 300 MG CAP PO SCH ×3 (08:38→20:18)
[2023-05-05] MEDS: PANTOprazole 40 MG TAB PO SCH (08:39)
[2023-05-05] MEDS: predniSONE 5 MG TAB PO SCH (08:39)
[2023-05-05] MEDS ORDERED: ONDANSETRON INJ 2 MG/ML 2 ML VIAL IV STA (08:41)
[2023-05-05] MEDS ORDERED: ACETAMINOPHEN 1,000 MG/100 ML VIAL IV STA (08:41)
--- NOTE | 2023-05-05 16:43 | Hospitalist Progress Note ---
Date of Service May 05, 2023 Assessment & Plan (1) Weakness: (2) Delirium due to general medical condition: (3) Aspiration pneumonia: (4) ASCVD (arteriosclerotic cardiovascular disease): (5) HTN, goal below 130/80: (6) Dyslipidemia, goal LDL below 70: Plan Ms. Chandler is an 82-year-old female with significant past medical history of CAD with history of coronary angioplasty, HTN, diastolic dysfunction, history of cardiomyopathy, HLD, CIDP, chronic prednisone therapy secondary to severe osteoarthritis, hypothyroidism, inclusion body myositis, GERD who presents to ED secondary to abdominal pain, nausea and diarrhea since 3 AM on 04/28 and admitted on same day for acute apendicitis. Patient is now s/p 04/28 appendectomy. Patient was discharged on 04/30 to home, but returned that evening for encephalopathy. CXR on readmission revealed aspiration pneumonia. Patient is known aspirator and had agreed historically to permissive aspiration. Patient is delirious and has long standing history of delirium with hospital admissions per daughter. Discussion is in line with SNF/rehab v longer term placement contingent on patients course. Patient also with notable underlying grief/bereavement from passing of daughter last week--this is not helping ongoing delirium at this time. Infectious work up negative so far. Transitioned to zosyn 05/04 Overall, notable improvement in status--suspect pain contributed much more than anticipated as patient did not receive any prn's Patient has a persistent leukocytosis, remains afebrile. #Acute delirium c/b hallucinations/delusions #Acute bereavement -multifactorial: UTI, recent surgery, grief from family situation, likely placement, recent aspiration, potentially pain -Reduced dose of gabapentin -Aspiration precautions -Delirium precautions -Behavioral health liason for support -Neurology consulted for stroke-like symptoms -MRI negative -Repeat infectious work up negative at this point -If leukocytosis continues to uptrend, will broaden and obtain CT ab/p iso recent surgical intervention -Scheduled tylenol for baseline pain control -IV tylenol helps for breakthrough -Continue gabapentin to home dosing #Acute on chronic aspiration *stbale #chronic esophageal dysfunction -ensure strict oral hygiene and aspiration precautions -Permissive aspiration per patient wishes #Persistent leukocytosis -afebrile, however recent abdominal surgery -Zosyn now, will continue for 48 hours and trend CBC #Ambulatory dysfunction ##Generalized Weakness -PT/OT, plan for rehab #Appendicitis s/p appendectomy 04/28 #Probable early sepsis w/ leukocytosis, tachycardia *improving pt was seen and examined by general surgery in ED, s/p appendectomy 04/28 General surgery cleared for DC on 04/30, incisions look stable -encourage ambulation as tolerated (limited 2/2 severe osteoarthritis and myositis) -PT/OT, plan for rehab -Continue scheduled Tylenol #Acute UTI *improved Urine with E coli >100K On zosyn at this time, repeat urine with out growth; completed course #Cholelithiasis --CT a/p:Cholelithiasis with gallbladder distention and mild fundal gallbladder wall thickening, also likely reactive. Findings could be correlated with ultrasound if further clinical concern. 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 Vanegas Dispo:plan for rehab Admission and Anticipated Discharge Date Admission Date: May 01, 2023 Subjective Endorsed a little nausea this morning and headache, but resolved with tylenol and zofran Denies any other acute concerns. Physical Exam Constitutional: WD/WN, vitals as above Respiratory: normal respiratory effort, lungs clear to auscultation Cardiovascular: RRR, no murmur, no edema Gastrointestinal (Abdomen): normal bowel sounds, soft, nontender, no hepatosplenomegaly Results & Data Results & Data Vital Signs (Past 12 Hours) Vital Signs Temp Pulse Pulse Resp BP Pulse Ox O2 Del Method 05/05/23 15:48 68 05/05/23 15:22 68 05/05/23 15:14 36.6 C 68 16 126/78 95 Room Air 05/05/23 11:23 36.6 C 80 18 132/79 97 Room Air 05/05/23 09:17 36.5 C 71 18 138/81 96 Room Air 05/05/23 08:30 Room Air 05/05/23 08:09 65 Laboratory Results Short CBC 05/05/23 Range/Units 06:12 WBC 12.67 H (4.8-10.8) K/ul Hgb 11.6 L (12.0-16.0) g/dl Hct 34.2 L (37.0-47.0) % Plt Count 465 H (130-400) K/uL BMP 05/05/23 06:12 Sodium 134 L Potassium 3.9 Chloride 102 Carbon Dioxide 24 BUN 13 Creatinine 0.58 L Glucose [address]cium [address] AB P reviewed, peritoneal stranding, postsurgical changes, stable cholelithiasis Medications Administered Home Medications Medication Instructions Recorded Confirmed Last Taken allopurinol 100 mg tablet 100 mg PO QAM 08/03/18 05/01/23 04/30/23 cholecalciferol (vitamin D3) 25 2,000 unit PO DAILY 08/03/18 05/01/23 04/30/23 mcg (1,000 unit) tablet (Vitamin D3) cyanocobalamin (vitamin B-12) 1,000 mcg IM MONTHLY 08/03/18 05/01/23 09/27/18 1,000 mcg/mL injection solution duloxetine 30 mg capsule,delayed 30 mg PO HS 08/03/18 05/01/23 04/30/23 release (Cymbalta) gabapentin 600 mg tablet 600 mg PO TID 08/03/18 05/01/23 04/30/23 (Neurontin) acetaminophen 500 mg tablet 500 mg PO QID PRN Pain 10/11/18 05/01/23 10/11/18 (Tylenol Extra Strength) aspirin 81 mg tablet,delayed 81 mg PO QAM 10/11/18 05/01/23 04/30/23 release (Ecotrin Low Strength) atorvastatin 40 mg tablet 40 mg PO HS #90 tabs 06/06/19 05/01/23 04/30/23 diclofenac sodium 1 % topical gel 2 g topical DIRECTED PRN Pain 01/16/22 05/01/23 Unknown ferrous sulfate 325 mg (65 mg 325 mg PO QAM 01/16/22 05/01/23 04/30/23 iron) tablet metoprolol succinate 25 mg 25 mg PO DAILY 01/16/22 05/01/23 04/30/23 tablet,extended release 24 hr pantoprazole 20 mg tablet,delayed 20 mg PO QAM 01/16/22 05/01/23 04/30/23 release prednisone 5 mg tablet 5 mg PO DAILY 01/16/22 05/01/23 04/30/23 turmeric root extract 500 mg 500 mg PO QAM 01/16/22 05/01/23 04/30/23 capsule amlodipine 5 mg tablet (Norvasc) 5 mg PO QAM #1 tab 01/22/22 05/01/23 04/30/23 levothyroxine 88 mcg tablet 88 mcg PO [id number] 04/28/23 05/01/23 04/30/23 cefdinir 300 mg capsule 300 mg PO BID 5 days #10 caps 04/30/23 05/01/23 04/30/23 oxycodone-acetaminophen 5 mg-325 1 tab PO Q6H PRN pain #10 tabs 04/30/23 05/01/23 Unknown mg tablet (Percocet) hydrocortisone 2.5 % topical cream 1 applic topical DIRECTED PRN 05/01/23 05/01/23 Unknown with perineal applicator Hemorrhoids Active Medications Generic Name Dose Route Start Last Admin Trade Name Freq PRN Reason Stop Dose Admin Acetaminophen 650 mg 05/03/23 14:00 05/05/23 09:25 Acetaminophen 325 Mg Tab PO 06/02/23 13:59 Not Given Q6H JERE Allopurinol 100 mg 05/01/23 09:00 05/05/23 08:36 Allopurinol 100 Mg Tab PO 05/31/23 08:59 100 mg QAM JERE Administration Amlodipine Besylate 5 mg 05/01/23 09:00 05/05/23 08:36 Amlodipine Besylate 5 Mg Tab PO 05/31/23 08:59 5 mg QAM JERE Administration Aspirin 81 mg 05/01/23 09:00 05/05/23 08:37 Aspirin 81 Mg Ectab PO 05/31/23 08:59 81 mg QAM JERE Administration Atorvastatin Calcium 40 mg 05/01/23 21:00 05/04/23 20:00 Atorvastatin 40 Mg Tab PO 05/31/23 20:59 40 mg HS JERE Administration Diclofenac Sodium 2 gm 05/04/23 11:00 05/05/23 12:47 Diclofenac Sod 1% Gel 100 Gm Tube EXT 06/03/23 10:59 2 gm Q6 JERE Administration Protocol Doxycycline Hyclate 100 mg 05/01/23 21:00 05/05/23 08:37 Doxycycline Hyclate 100 Mg Cap PO 05/07/23 23:59 100 mg BID JERE Administration Duloxetine HCl 30 mg 05/01/23 21:00 05/04/23 20:00 Duloxetine Hcl 30 Mg Cap PO 05/31/23 20:59 30 mg HS JERE Administration Enoxaparin Sodium 40 mg 05/04/23 09:00 05/05/23 08:37 Enoxaparin Inj 40 Mg/0.4 Ml Syr SQ 06/03/23 08:59 40 mg QAM JERE Administration Ferrous Sulfate 325 mg 05/01/23 09:00 05/05/23 08:38 Ferrous Sulfate 325 Mg Tab PO 05/31/23 08:59 325 mg QAM JERE Administration Gabapentin 600 mg 05/04/23 14:00 05/05/23 13:19 Gabapentin 300 Mg Cap PO 06/03/23 13:59 600 mg TID JERE Administration Piperacillin Sod/Tazobactam 100 mls @ 25 mls/hr 05/04/23 13:00 05/05/23 12:47 Sod 4.5 gm/ Dextrose IV 05/06/23 12:59 25 mls/hr Q8H JERE Administration Protocol Levothyroxine Sodium 88 mcg 05/01/23 06:30 05/05/23 04:41 Levothyroxine Sodium 88 Mcg Tablet PO 05/31/23 06:29 88 mcg [id number] JERE Administration Metoprolol Succinate 25 mg 05/01/23 09:00 05/05/23 08:38 Metoprolol Succ 25mg Ext Rel Tab PO 05/31/23 08:59 25 mg DAILY JERE Administration Pantoprazole Sodium 40 mg 05/01/23 09:00 05/05/23 08:39 Pantoprazole 40 Mg Tab PO 05/31/23 08:59 40 mg QAM JERE Administration Prednisone 5 mg 05/01/23 09:00 05/05/23 08:39 Prednisone 5 Mg Tab PO 05/31/23 08:59 5 mg DAILY JERE Administration Vitamin D 2,000 units 05/01/23 09:00 05/05/23 08:37 Cholecalciferol 1,000 Units 25 Mcg Tab PO 05/31/23 08:59 2,000 units DAILY JERE Administration
[2023-05-05] MEDS: ATORVASTATIN 40 MG TAB PO SCH (20:16)
[2023-05-05] MEDS: DULoxetine HCL 30 MG CAP PO SCH (20:17)
[2023-05-06] MEDS: LEVOTHYROXINE SODIUM 88 MCG TABLET PO SCH (05:32)
[2023-05-06] MEDS: PIPERACILLIN/TAZOBACTAM 4.5 GM in DEXTROSE 5% MINI-B 100 ML IV SCH (05:33)
[2023-05-06] MEDS: DICLOFENAC SOD 1% GEL 100 GM TUBE EXT SCH ×4 (05:34→23:07)
[2023-05-06 06:49] LABS: Hematocrit (blood only) 33.2 % (37.0-47.0); Hemoglobin 11.4 g/dl (12.0-16.0); Mean Corpuscular Hemoglobin 32.7 pg (25.0-34.0); Mean Corpuscular Hgb Conc 34.3 g/dL (32.0-36.0); Mean Corpuscular Volume 95.1 fL (80.0-100.0); Platelet Count 479 K/uL (130-400); RDW Coefficient of Variation 14.3 % (11.5-14.5); RDW Standard Deviation 49.1 fL (36.4-46.3); Red Blood Count 3.49 M/uL (4.20-5.40); White Blood Count 12.78 K/ul (4.8-10.8)
[2023-05-06 07:12] LABS: Calcium 8.6 mg/dl (8.6-10.3); Magnesium 1.7 mg/dl (1.7-2.4); Potassium 3.6 mmol/L (3.5-5.1)
[2023-05-06 07:17] LABS: BUN Creatinine Ratio 25.9 (10-20); Est GFR (African American) 101.1 ml/min; Est GFR (Non-African American) 87.3 ml/min; Phosphorus 3.1 mg/dl (2.5-4.9)
[2023-05-06] MEDS: allopurinoL 100 MG TAB PO SCH (08:22)
[2023-05-06] MEDS: PANTOprazole 40 MG TAB PO SCH (08:23)
[2023-05-06] MEDS: FERROUS SULFATE 325 MG TAB PO SCH (08:23)
[2023-05-06] MEDS: ENOXAPARIN INJ 40 MG/0.4 ML SYR SQ SCH (08:23)
[2023-05-06] MEDS: predniSONE 5 MG TAB PO SCH (08:23)
[2023-05-06] MEDS: GABAPENTIN 300 MG CAP PO SCH ×3 (08:23→20:28)
[2023-05-06] MEDS: METOPROLOL SUCC 25MG EXT REL TAB PO SCH (08:23)
[2023-05-06] MEDS: amLODIPine BESYLATE 5 MG TAB PO SCH (08:23)
[2023-05-06] MEDS: DOXYCYCLINE HYCLATE 100 MG CAP PO SCH (08:23)
[2023-05-06] MEDS: CHOLECALCIFEROL 1,000 UNITS 25 MCG TAB PO SCH (08:24)
[2023-05-06] MEDS: ASPIRIN 81 MG ECTAB PO SCH (08:24)
--- NOTE | 2023-05-06 12:41 | Hospitalist Progress Note ---
Date of Service May 06, 2023 Assessment & Plan (1) Weakness: (2) Delirium due to general medical condition: (3) Aspiration pneumonia: (4) ASCVD (arteriosclerotic cardiovascular disease): (5) HTN, goal below 130/80: (6) Dyslipidemia, goal LDL below 70: Plan Ms. Chandler is an 82-year-old female with significant past medical history of CAD with history of coronary angioplasty, HTN, diastolic dysfunction, history of cardiomyopathy, HLD, CIDP, chronic prednisone therapy secondary to severe osteoarthritis, hypothyroidism, inclusion body myositis, GERD who presents to ED secondary to abdominal pain, nausea and diarrhea since 3 AM on 04/28 and admitted on same day for acute apendicitis. Patient is now s/p 04/28 appendectomy. Patient was discharged on 04/30 to home, but returned that evening for encephalopathy. CXR on readmission revealed aspiration pneumonia. Patient is known aspirator and had agreed historically to permissive aspiration. Patient is delirious and has long standing history of delirium with hospital admissions per daughter. Discussion is in line with SNF/rehab v longer term placement contingent on patients course. Patient also with notable underlying grief/bereavement from passing of daughter last week--this is not helping ongoing delirium at this time. Infectious work up negative so far. Transitioned to zosyn 05/04 Overall, notable improvement in status--suspect pain contributed much more than anticipated as patient did not receive any prn's Patient has a persistent leukocytosis, remains afebrile. Review of recent labs from february reveal WBC 11.39, will discontinue abx and monitor. #Acute delirium c/b hallucinations/delusions #Acute bereavement -multifactorial: UTI, recent surgery, grief from family situation, likely placement, recent aspiration, potentially pain -Reduced dose of gabapentin -Aspiration precautions -Delirium precautions -Behavioral health liason for support -Neurology consulted for stroke-like symptoms -MRI negative -Repeat infectious work up negative at this point -If leukocytosis continues to uptrend, will broaden and obtain CT ab/p iso recent surgical intervention -Scheduled tylenol for baseline pain control -IV tylenol helps for breakthrough -Continue gabapentin to home dosing #Acute on chronic aspiration *stbale #chronic esophageal dysfunction -ensure strict oral hygiene and aspiration precautions -Permissive aspiration per patient wishes #Chronic leukocytosis #Thrombocytosis -afebrile, however recent abdominal surgery -platelets 410 and WBC 11.39 in 02/2023 -Discontinue abx -Follow up OP with PCP #Ambulatory dysfunction ##Generalized Weakness -PT/OT, plan for rehab #Appendicitis s/p appendectomy 04/28 #Probable early sepsis w/ leukocytosis, tachycardia *improving pt was seen and examined by general surgery in ED, s/p appendectomy 04/28 General surgery cleared for DC on 04/30, incisions look stable -encourage ambulation as tolerated (limited 2/2 severe osteoarthritis and myositis) -PT/OT, plan for rehab -Continue scheduled Tylenol #Acute UTI *improved Urine with E coli >100K completed course CTX and additional zosyn #Cholelithiasis --CT a/p:Cholelithiasis with gallbladder distention and mild fundal gallbladder wall thickening, also likely reactive. Findings could be correlated with ultrasound if further clinical concern. 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 Vanegas Dispo:plan for rehab Admission and Anticipated Discharge Date Admission Date: May 01, 2023 Subjective Reports feeling good overall today, denies any further nausea, headache or other acute concerns States she is eager for rehab in hopes to get stronger Denies any chest pain, abdominal pain or other acute concerns Physical Exam Constitutional: WD/WN, vitals as above Respiratory: normal respiratory effort, lungs clear to auscultation Cardiovascular: RRR, no murmur, no edema Gastrointestinal (Abdomen): normal bowel sounds, soft, nontender, no hepatosplenomegaly Results & Data Results & Data Vital Signs (Past 12 Hours) Vital Signs Temp Pulse Pulse Resp BP Pulse Ox O2 Del Method 05/06/23 12:26 36.7 C 78 17 124/82 97 Room Air 05/06/23 09:44 Room Air 05/06/23 08:10 36.7 C 69 18 148/84 H 95 Room Air 05/06/23 07:54 65 05/06/23 03:42 37.1 C 78 18 137/84 94 Room Air
[2023-05-06] MEDS: DULoxetine HCL 30 MG CAP PO SCH (20:28)
[2023-05-06] MEDS: ATORVASTATIN 40 MG TAB PO SCH (20:28)
[2023-05-07] MEDS: LEVOTHYROXINE SODIUM 88 MCG TABLET PO SCH (06:02)
[2023-05-07] MEDS: DICLOFENAC SOD 1% GEL 100 GM TUBE EXT SCH ×2 (06:30→12:15)
[2023-05-07 06:44] LABS: Hematocrit (blood only) 35.9 % (37.0-47.0); Hemoglobin 11.7 g/dl (12.0-16.0); Mean Corpuscular Hemoglobin 31.6 pg (25.0-34.0); Mean Corpuscular Hgb Conc 32.6 g/dL (32.0-36.0); Mean Platelet Volume 9.8 fL (9.4-12.4); Platelet Count 513 K/uL (130-400); RDW Standard Deviation 50.2 fL (36.4-46.3); White Blood Count 12.14 K/ul (4.8-10.8)
[2023-05-07 07:03] LABS: BUN Creatinine Ratio 32.6 (10-20); Calcium 8.7 mg/dl (8.6-10.3); Creatinine Clr Calc Pharmacy 89.2 ml/min; Est GFR (Non-African American) 94.1 ml/min; Potassium 3.6 mmol/L (3.5-5.1)
[2023-05-07] MEDS: allopurinoL 100 MG TAB PO SCH (08:15)
[2023-05-07] MEDS: ENOXAPARIN INJ 40 MG/0.4 ML SYR SQ SCH (08:16)
[2023-05-07] MEDS: amLODIPine BESYLATE 5 MG TAB PO SCH (08:16)
[2023-05-07] MEDS: CHOLECALCIFEROL 1,000 UNITS 25 MCG TAB PO SCH (08:16)
[2023-05-07] MEDS: ASPIRIN 81 MG ECTAB PO SCH (08:16)
[2023-05-07] MEDS: GABAPENTIN 300 MG CAP PO SCH ×2 (08:17→13:18)
[2023-05-07] MEDS: FERROUS SULFATE 325 MG TAB PO SCH (08:17)
[2023-05-07] MEDS: predniSONE 5 MG TAB PO SCH (08:18)
[2023-05-07] MEDS: PANTOprazole 40 MG TAB PO SCH (08:18)
[2023-05-07] MEDS: METOPROLOL SUCC 25MG EXT REL TAB PO SCH (08:18)
--- NOTE | 2023-05-07 11:38 | Discharge Summary ---
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 coli was discharged yesterday to home as patient declined rehab was brought in back by her daughter because of ambulate dysfunction, weakness, left-sided more weaker than her usual. Daughter is in the room. The grandson was with the patient for some time yesterday after discharge but the patient seemed very weak and he called the daughter as he has to leave. When the daughter talked on the phone with patient around 2 PM she thought that patient having some slurring speech. The daughter drove from [place] to patient's house . Even 3 people it was difficult to make the patient stand up. And she was having some difficulty ambulating and her left leg seemed more weaker than her usual. And she was brought in here. As per daughter the slurred speech and left-sided weakness , she is not sure at what time it started. Currently speech is back to her baseline. Daughter states patient has have some difficulty swallowing. She coughs after eating. Currently patient is alert and oriented. Denies any headache. Denies any blurred visions or double visions. No earaches. No runny nose. No sore throat. Has some cough. Denies any chest pain. No shortness of breath. No nausea. Denies abdominal pain. Daughter states patient had loose stools today which are dark in color. Patient takes iron pills. Micturating okay. Currently resting comfortably and hemodynamically stable. Past medical history. As mentioned above Past surgical history. Right side deep muscle biopsy. Removal of ovary oviducts in 1994. Sigmoidoscopy. Total hysterectomy. Social history. . No smoking. No alcohol use. No drug use. Family history. Mother of [place] at age of 88. Father had emphysema. Admission Exam Per Admitting Provider General- not in distress Head- atraumatic Eyes- PERRL.EOMI ENT- oropharynx clear Neck- supple, no JVD. Lungs- clear to auscultation no wheezing or crackles Heart- irregular rhythm; no murmur, no gallop. Abdomen- normal bowel sounds, soft, nontender, no distension. Extremities- no pretibial edema, no erythema seen Neuro- alert, oriented x 3; PERRL, EOMI; no facial palsy; no dysarthria; motor 3-4/5 right extremities 2/5 left upper extremity 1/5 left lower extremity, sensations intact, position sense intact; Skin- warm & dry Principal Dx & Hospital Course #1 = Principal Diagnosis (1) Weakness: (2) Delirium due to general medical condition: (3) Aspiration pneumonia: (4) ASCVD (arteriosclerotic cardiovascular disease): (5) HTN, goal below 130/80: (6) Dyslipidemia, goal LDL below 70: Plan Ms. Chandler is an 82-year-old female with significant past medical history of CAD with history of coronary angioplasty, HTN, diastolic dysfunction, history of cardiomyopathy, HLD, CIDP, chronic prednisone therapy secondary to severe osteoarthritis, hypothyroidism, inclusion body myositis, GERD who presents to ED secondary to abdominal pain, nausea and diarrhea since 3 AM on 04/28 and admitted on same day for acute apendicitis. Patient is now s/p 04/28 appendectomy. Patient was discharged on 04/30 to home, but returned that evening for encephalopathy. CXR on readmission revealed aspiration pneumonia. Patient is known aspirator and had agreed historically to permissive aspiration. Patient is delirious and has long standing history of delirium with hospital admissions per daughter. Discussion is in line with SNF/rehab v longer term placement contingent on patients course. Patient also with notable underlying grief/bereavement from passing of daughter last week--this is not helping ongoing delirium at this time. Infectious work up negative so far. Transitioned to zosyn 05/04 Overall, notable improvement in status--suspect pain contributed much more than anticipated as patient did not receive any prn's Patient has a persistent leukocytosis, remains afebrile. Review of recent labs from february reveal WBC 11.39, patient stable >24 hours off of antibiotics. Patient's course complicated by upset over possibly not going home and [facility]ing to [facility] On discharge, patient hopeful to regain some independence in hopes to ultimately return home. Patient with limited insight regarding health limitations.. #Acute delirium c/b hallucinations/delusions #Acute bereavement -multifactorial: UTI, recent surgery, grief from family situation, likely placement, recent aspiration, potentially pain -Reduced dose of gabapentin -Aspiration precautions -Delirium precautions -Behavioral health liason for support -Neurology consulted for stroke-like symptoms -MRI negative -Repeat infectious work up negative at this point -If leukocytosis continues to uptrend, will broaden and obtain CT ab/p iso recent surgical intervention -Scheduled tylenol for baseline pain control -IV tylenol helps for breakthrough -Continue gabapentin to home dosing -NO stroke or atrial fibrillation on admission #Acute on chronic aspiration *stbale #chronic esophageal dysfunction -ensure strict oral hygiene and aspiration precautions -Permissive aspiration per patient wishes #Chronic leukocytosis #Thrombocytosis -afebrile, however recent abdominal surgery -platelets 410 and WBC 11.39 in 02/2023 -Discontinue abx -Follow up OP with PCP #Ambulatory dysfunction ##Generalized Weakness -PT/OT, plan for rehab on discharge #Appendicitis s/p appendectomy 04/28 #Probable early sepsis w/ leukocytosis, tachycardia *improving pt was seen and examined by general surgery in ED, s/p appendectomy 04/28 General surgery cleared for DC on 04/30, incisions look stable -encourage ambulation as tolerated (limited 2/2 severe osteoarthritis and myositis) -Continue scheduled Tylenol #Acute UTI *improved Urine with E coli >100K Completed antibiotics, reppeat urine clean #Cholelithiasis --CT a/p:Cholelithiasis with gallbladder distention and mild fundal gallbladder wall thickening, also likely reactive. Findings could be correlated with ultrasound if further clinical concern. 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 #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 chronic, stable continue Synthroid post operatively #Chronic osteoarthritis/Gout on low dose prednisone 5mg daily Discharge Exam Constitutional WD/WN, vitals as above Respiratory normal respiratory effort, lungs clear to auscultation Cardiovascular RRR, no murmur, no edema Gastrointestinal (Abdomen) normal bowel sounds, soft, nontender, no hepatosplenomegaly Updated Medication List Medication Instructions Recorded Confirmed Type allopurinol 100 mg tablet 100 mg PO QAM 08/03/18 05/01/23 History cholecalciferol (vitamin D3) 25 2,000 unit PO DAILY 08/03/18 05/01/23 History mcg (1,000 unit) tablet (Vitamin D3) cyanocobalamin (vitamin B-12) 1,000 mcg IM MONTHLY 08/03/18 05/01/23 History 1,000 mcg/mL injection solution duloxetine 30 mg capsule,delayed 30 mg PO HS 08/03/18 05/01/23 History release (Cymbalta) gabapentin 600 mg tablet 600 mg PO TID 08/03/18 05/01/23 History (Neurontin) acetaminophen 500 mg tablet 500 mg PO QID PRN Pain 10/11/18 05/01/23 History (Tylenol Extra Strength) aspirin 81 mg tablet,delayed 81 mg PO QAM 10/11/18 05/01/23 History release (Ecotrin Low Strength) atorvastatin 40 mg tablet 40 mg PO HS #90 tabs 06/06/19 05/01/23 Rx diclofenac sodium 1 % topical gel 2 g topical DIRECTED PRN Pain 01/16/22 05/01/23 History ferrous sulfate 325 mg (65 mg 325 mg PO QAM 01/16/22 05/01/23 History iron) tablet metoprolol succinate 25 mg 25 mg PO DAILY 01/16/22 05/01/23 History tablet,extended release 24 hr pantoprazole 20 mg tablet,delayed 20 mg PO QAM 01/16/22 05/01/23 History release prednisone 5 mg tablet 5 mg PO DAILY 01/16/22 05/01/23 History turmeric root extract 500 mg 500 mg PO QAM 01/16/22 05/01/23 History capsule amlodipine 5 mg tablet (Norvasc) 5 mg PO QAM #1 tab 01/22/22 05/01/23 Rx levothyroxine 88 mcg tablet 88 mcg PO 6XWK 04/28/23 05/01/23 History oxycodone-acetaminophen 5 mg-325 1 tab PO Q6H PRN pain #10 tabs 04/30/23 05/01/23 Rx mg tablet (Percocet) hydrocortisone 2.5 % topical cream 1 applic topical DIRECTED PRN 05/01/23 05/01/23 History with perineal applicator Hemorrhoids Hospital Stay Data Consultations 05/01/23 00:59 ED Decision to Admit Stat 05/01/23 08:00 Consult Cardiology Routine Consult Neurology Routine 05/02/23 10:00 Consult Behavioral Health Liaison Routine Diagnostic Imagining Performed 04/30/23 22:52 CT head/brain wo con Stat 05/01/23 02:17 CT angio head w con Stat CT angio neck with con Stat 05/01/23 03:53 MR brain wo/w con Urgent 05/04/23 07:58 CT Abd and Pelvis [CT abd pelvis IV con only] Routine Pending Results Patient Have Any Pending Studies at Discharge: No Discharge Instructions Given to Patient (Per Discharging Provider) You were admitted for weakness after your appendectomy on 04/28. There was concern for stroke initially, and you were experiencing noticeable delirium. This resolved with a consistent pain regimen and close monitoring. You were noted to also have aspiration irritation in your lungs on readmission. Infectious work up did not reveal any concerns for blood infection, and imaging of your belly was normal for post-surgery. Your imaging did not reveal stroke. You were seen by the Route Sales Manager, and do not have abnormal rhythm call atrial f ibrillation. It is recommended you follow a minced-moist diet to prevent aspiration events. It is recommended you follow up with your PCP to discuss any lingering symptoms of bereavement given so many life changes ongoing while you recover. You completed a course of antibiotics for urinary tract infection and do not require further antibiotics at this time. It is recommended you continue all home medications as prescribed. Total Time Total Time Spent Total Time Spent (In Minutes): 45
== END 2023-05-07 15:27 | DRG 871 ==
LOC: ED 22:38 → EDINP 05-01 02:17 → 4W 05-01 06:04 → 2S 05-04 19:25

== ENCOUNTER 2023-05-23 20:57 | Inpatient (IN) ==
--- OUTSIDE RECORDS SUMMARY | 2023-05-23 21:03 | External Medical Summary | Summary of Care ---
Author Name Unknown Organization [facility] Address [address] [facility] [place] [address] Phone [phone] Care Team Providers Care Ground Water Technician Name Role Phone VanegasElizabeth chavez Primary Care Provider [phone] Encounter Details Date Type Department Care Team (Late st Contact Info) Description 05/18/2023 Result Scan Unspecified Department <No scans attached> Allergies No known active allergiesdocumented as of this encounter (statuses as of 05/19/2023) Medications Medication Sig Dispensed Refills Start Date [...] DAY 90 Capsule 1 08/01/2022 4 Active amLODIPine Besylate 5 MG Oral [...] as of this encounter (statuses as of 05/19/2023) Active Problems Problem Noted Date Diagnosed Date [...] 69 10/11 Coronary artery disease invo lving [place] coronary artery of [place] heart without angina pectoris 08/10/2018 S/P angioplasty with stent 08/10/2018 History of [place] (myocardial infarction) 08/10/2018 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 12/19/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 documented as of this encounter (statuses as of 05/19/2023) Resolved Problems Problem Noted Date Diagnosed Date [...] back p ain without sciatica 12/19/2016 10/22/2017 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 Mixed dyslipidemia 05/16/2005 7 OSTEOARTHROS NOS-L-LEG 04/18 documented as of this encounter (statuses as of 05/19/2023) Immunizations Name Administration Dates Next Due COVID-19 mRNA, LNP-s, No Pre serve, 2-Dose Series ([employer]) 07/10/2020,06/19/2020 COVID-19, LNP-s, No Preserve , Marlon-sucrose, [...] 06/04/2023 1:00 PM EST Office Visit Orthopaedics [address] [phone] Koffi Logan MD [address] [place] [id number] 09/29/2023 10:30 AM EDT Office Visit Family Medicine [address] [place] [phone] Elizabeth Vanegas[address] [place] [address] 09/29/2023 11:30 AM EDT Office Visit Cardiology [address] [place] [address] Elton Smith PA-C [address] [place] [address] Health Maintenance Due Date Last Done Comments [...] Not on filedocumented as of this encounter Procedures Procedure Name Priority Date/Time Associated Diagnosis Comments OUTSIDE LAB RESULTS 05/18/2023 documented in this encounter Results * OUTSIDE LAB RESULTS (05/18/2023) 05/18/2023 No Physician Data Unknown LABORATORY documented in this encounter Care Teams Ground Water Technician Relationship Specialty Start Date End Date Elizabeth Vanegas DO [address] [place] [address] [place] [id number] PCP - General Internal Medicine 08/05/22 documented as of this encounter
--- NOTE | 2023-05-23 22:10 | Emergency Department Note ---
Impression & Plan Generalized weakness, Ambulatory dysfunction ED Provider Note HISTORY OF PRESENT ILLNESS: Patient is an 82-year-old female presenting with ambulatory dysfunction. Patient reports she was just discharged from rehab today. She got home and was unable to get up out of her recliner with her lift chair by herself. Her granddaughter called 911. Patient reports that she supposed to have in-home services starting Thursday, but she lives alone and is unable to care for herself for the next 48 hours. She denies any chest pain, shortness of breath, fever, abdominal pain, nausea or vomiting. ROS: as above PHYSICAL EXAM: Constitutional: Patient appears in no acute distress. HENT: Head: Normocephalic and atraumatic. Eyes: EOMI, PERRL Mouth/Throat: Mucous membranes moist. Neck: Trachea midline. Neck supple. Cardiovascular: RRR, No murmurs, rubs or gallops. Intact distal pulses. Pulmonary/Chest: No respiratory distress. Breath sounds clear and equal bilaterally. No wheezes or rales. Abdominal: Abdomen soft, no tenderness, rebound or guarding. Musculoskeletal: No edema, tenderness or deformity noted. Skin: Warm and dry. No rash, erythema, pallor or cyanosis Psychiatric: Appropriate mood and affect for situation. Neurological: Alert and keenly responsive. CN II-XII grossly intact, moving all extremities equally and fully. MDM: - Vitals signs showed hypertension - History obtained via patient. Patient presents with ambulatory dysfunction. Patient reports she was just discharged from rehab today. Reports she got home and has been unable to ambulate or do her house on her own. She lives alone. Denies any chest pain, shortness of breath, fevers, dysuria or abdominal pain - Chronic conditions affecting care: CHF; CAD; HLD; hypothyroidism - Differential diagnoses include, but are not limited to: pneumonia; UTI; electrolyte abnormality; dysrhythmia - Order placed for continuous cardiac monitoring. At this time, monitor showed rate of 85 bpm with normal sinus rhythm, per my interpretation. - External medical records reviewed. Discharge summary dated 05/07/2023 was reviewed. Patient had a prolonged hospitalization after acute appendicitis. She had presented during this admission for acute delirium and hallucinations. She was discharged to rehab. - EKG interpreted by myself showed normal sinus rhythm. Rate 70 bpm. QT 386. No acute ischemic changes - Laboratory workup interpreted by myself showed normal WBC; stable electrolytes; normal troponin - COVID negative - Discussion was had with acute care nurse practitioner about patient's case and need for admission - Hospitalist consulted for admission - [facility]. ASSESSMENT AND PLAN: Diagnosis: ambulatory dysfunction; weakness Plan: admit Past Med/Surg History Medical History Encounter for pre-operative examination History of CA (myocardial infarction) Coronary artery disease CHF (congestive heart failure) Severe sepsis Inflammatory arthritis Gout Inclusion body myositis 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 HLD (hyperlipidemia) Neuropathy Surgical History S/P cardiac cath History of hysterectomy Family History Other Coronary heart disease Social History Smoking Status: Unknown if ever smoked Second Hand Exposure: No; Do You Dip or Chew Tobacco: No; Hx Alcohol Use: No Hx Substance Use: No Preferred Language: Syriac Communication Ability: Effective General Scrap Worker Required: No Beliefs That Will Affect Care: None Current Living Situation: Alone Feels Safe at Home: Yes Assistive Devices: Lift Chair and Walker Allergies Allergies Allergy/AdvReac Type Severity Reaction Status Date / Time No Known Allergies Allergy Verified 05/01/23 00:26 Home Meds Home Medications Medication Instructions Recorded Confirmed allopurinol 100 mg tablet 100 mg PO QAM 08/03/18 05/23/23 cholecalciferol (vitamin D3) 25 2,000 unit PO DAILY 08/03/18 05/23/23 mcg (1,000 unit) tablet (Vitamin D3) cyanocobalamin (vitamin B-12) 1,000 mcg IM MONTHLY 08/03/18 05/23/23 1,000 mcg/mL injection solution duloxetine 30 mg capsule,delayed 30 mg PO HS 08/03/18 05/23/23 release (Cymbalta) gabapentin 600 mg tablet 600 mg PO TID 08/03/18 05/23/23 (Neurontin) acetaminophen 500 mg tablet 500 mg PO QID PRN Pain 10/11/18 05/23/23 (Tylenol Extra Strength) aspirin 81 mg tablet,delayed 81 mg PO QAM 10/11/18 05/23/23 release (Ecotrin Low Strength) diclofenac sodium 1 % topical gel 2 g topical DIRECTED PRN Pain 01/16/22 05/23/23 ferrous sulfate 325 mg (65 mg 325 mg PO QAM 01/16/22 05/23/23 iron) tablet metoprolol succinate 25 mg 25 mg PO DAILY 01/16/22 05/23/23 tablet,extended release 24 hr pantoprazole 20 mg tablet,delayed 20 mg PO QAM 01/16/22 05/23/23 release prednisone 5 mg tablet 5 mg PO DAILY 01/16/22 05/23/23 turmeric root extract 500 mg 500 mg PO QAM 01/16/22 05/23/23 capsule levothyroxine 88 mcg tablet 88 mcg PO 6XWK 04/28/23 05/23/23 hydrocortisone 2.5 % topical cream 1 applic topical DIRECTED PRN 05/01/23 05/23/23 with perineal applicator Hemorrhoids Previous Rx's Medication Instructions Recorded atorvastatin 40 mg tablet 40 mg PO HS #90 tabs 06/06/19 amlodipine 5 mg tablet (Norvasc) 5 mg PO QAM #1 tab 01/22/22 oxycodone-acetaminophen 5 mg-325 1 tab PO Q6H PRN pain #10 tabs 04/30/23 mg tablet (Percocet) Results & Data (ED) Vital Signs Vital Signs - 24 hr 05/23/23 20:52 05/23/23 21:47 Temperature 36.3 C L Temperature Source Oral Pulse Rate 85 Respiratory Rate 15 Blood Pressure 189/91 H Blood Pressure Mean 123 Pulse Oximetry 95 Oxygen Delivery Method Room Air Room Air Sepsis Recent Fever Within 48 Hours No Sepsis New/Unexplained Change in Mental Status No Sepsis Action Taken by Nursing No Action Required Laboratory Data 05/23/23 22:30 05/23/23 22:30 Lab Results 05/23/23 05/23/23 Range/Units 22:30 22:31 WBC 10.10 (4.8-10.8) K/ul RBC 3.74 L (4.20-5.40) M/uL Hgb 12.1 (12.0-16.0) g/dl Hct 36.8 L (37.0-47.0) % MCV 98.4 (80.0-100.0) fL MCH 32.4 (25.0-34.0) pg MCHC 32.9 (32.0-36.0) g/dL RDW Std Deviation 54.2 H (36.4-46.3) fL RDW Coeff of Danya 15.0 H (11.5-14.5) % Plt Count 384 (130-400) K/uL MPV 10.0 (9.4-12.4) fL Immature Gran % (Auto) 0.4 % Neut % (Auto) 68.9 % Lymph % (Auto) 20.4 % [place] % (Auto) 6.7 % Eos % (Auto) 2.7 % Baso % (Auto) 0.9 % Neut # (Auto) 6.96 H (1.40-6.50) K/uL Lymph # (Auto) 2.06 (1.20-3.40) K/uL [place] # (Auto) 0.68 H (0.11-0.59) K/uL Eos # (Auto) 0.27 (0.00-0.50) K/uL Baso # (Auto) 0.09 (0.00-0.20) K/uL Immature Gran # (Auto) 0.04 (0.01-0.20) K/uL Sodium 143 (136-145) mmol/L Potassium 3.9 (3.5-5.1) mmol/L Chloride 109 H (98-107) mmol/L Carbon Dioxide 22 (21-32) mmol/L Anion Gap 12 H (3-11) BUN 22 (6-23) mg/dl Creatinine 0.66 (0.6-1.2) mg/dl Est Cr Clr Drug Dosing 51.1 ml/min Est GFR ( Amer) 94.7 ml/min Est GFR (Non-Af Amer) 81.7 ml/min BUN/Creatinine Ratio 33.3 H (10-20) Glucose 117 H (70-99(Fasting)) mg/dl Calcium 9.5 (8.6-10.3) mg/dl Magnesium 1.8 (1.7-2.4) mg/dl Total Bilirubin 0.4 (0.2-1.0) mg/dl AST 16 (13-39) U/L ALT 14 (7-52) U/L Alkaline Phosphatase 102 (34-104) U/L Troponin I High Sens 9.1 (0-14) pg/ml Total Protein 7.3 (6.0-8.3) gm/dl Albumin 3.9 (3.4-5.0) gm/dl Globulin 3.4 (2.5-4.0) gm/dl Albumin/Globulin Ratio 1.1 (0.9-2) SARS-CoV-2, RNA, NAAT NEGATIVE (NEGATIVE) Discharge Plan Visit Data Chief Complaint: Weakness Stated Complaint: Weakness, Unable to ambulate ED Provider: Sita Herrera Discharge Problem: Generalized weakness, Ambulatory dysfunction Forms Stand Alone Forms: My [facility] [employer] Prescriptions Prescriptions: No Action atorvastatin 40 mg tablet 40 mg PO HS Qty: 90 3RF gabapentin [Neurontin] 600 mg tablet 600 mg PO TID allopurinol 100 mg Tablet 100 mg PO QAM cyanocobalamin (vitamin B-12) 1,000 mcg/mL Solution 1,000 mcg IM MONTHLY Patient Comments: about 2 weeks ago duloxetine [Cymbalta] 30 mg capsule,delayed release(DR/EC) 30 mg PO HS cholecalciferol (vitamin D3) [Vitamin D3] 1,000 unit Tablet 2,000 unit PO DAILY aspirin [Ecotrin Low Strength] 81 mg tablet,delayed release (DR/EC) 81 mg PO QAM acetaminophen [Tylenol Extra Strength] 500 mg tablet 500 mg PO QID PRN (Reason: Pain) hydrocortisone 2.5 % cream with perineal applicator 1 applic topical DIRECTED PRN (Reason: Hemorrhoids) pantoprazole 20 mg tablet,delayed release (DR/EC) 20 mg PO QAM prednisone 5 mg tablet 5 mg PO DAILY metoprolol succinate 25 mg tablet extended release 24 hr 25 mg PO DAILY turmeric root extract 500 mg Capsule 500 mg PO QAM ferrous sulfate 325 mg (65 mg iron) tablet 325 mg PO QAM diclofenac sodium 1 % gel 2 g TOPICAL DIRECTED PRN (Reason: Pain) amlodipine [Norvasc] 5 mg Tablet 5 mg PO QAM Qty: 1 0RF levothyroxine 88 mcg tablet 88 mcg PO 6XWK Rx Instructions: Only takes it on Tu/Wed/Th/Fri/Sat/Sun oxycodone-acetaminophen [Percocet] 5-325 mg tablet 1 tab PO Q6H PRN (Reason: pain) Qty: 10 0RF Referrals Referrals: Elizabeth Vanegas DO [Primary Care Provider] -
[2023-05-23 22:56] LABS: Basophils # (auto) 0.09 K/uL (0.00-0.20); Basophils % (auto) 0.9 %; Eosinophils # (auto) 0.27 K/uL (0.00-0.50); Eosinophils % (auto) 2.7 %; Hematocrit (blood only) 36.8 % (37.0-47.0); Hemoglobin 12.1 g/dl (12.0-16.0); Immature Granulocytes # (auto) 0.04 K/uL (0.01-0.20); Immature Granulocytes % (auto) 0.4 %; Lymphocytes # (auto) 2.06 K/uL (1.20-3.40); Lymphocytes % (auto) 20.4 %; Mean Corpuscular Hemoglobin 32.4 pg (25.0-34.0); Mean Corpuscular Hgb Conc 32.9 g/dL (32.0-36.0); Mean Corpuscular Volume 98.4 fL (80.0-100.0); Monocytes # (auto) 0.68 K/uL (0.11-0.59); Monocytes % (auto) 6.7 %; Neutrophils # (auto) 6.96 K/uL (1.40-6.50); Neutrophils % (auto) 68.9 %; Platelet Count 384 K/uL (130-400); RDW Standard Deviation 54.2 fL (36.4-46.3); Red Blood Count 3.74 M/uL (4.20-5.40)
[2023-05-23 23:04] LABS: Albumin Globulin Ratio 1.1 (0.9-2); Albumin Level 3.9 gm/dl (3.4-5.0); BUN Creatinine Ratio 33.3 (10-20); Bilirubin,Total 0.4 mg/dl (0.2-1.0); Calcium 9.5 mg/dl (8.6-10.3); Creatinine Clr Calc Pharmacy 51.1 ml/min; Est GFR (African American) 94.7 ml/min; Est GFR (Non-African American) 81.7 ml/min; Globulin 3.4 gm/dl (2.5-4.0); Magnesium 1.8 mg/dl (1.7-2.4); Potassium 3.9 mmol/L (3.5-5.1); Total Protein 7.3 gm/dl (6.0-8.3)
[2023-05-23 23:11] LABS: Troponin I High Sensitivity 9.1 pg/ml (0-14)
--- NOTE | 2023-05-23 23:51 | History & Physical Report ---
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 Lovenox subcu DNR Patient family requesting updates from providers. Ms. Yulisa Tony, contact #[phone]. Text document was generated using [employer] voice recognition software. It may contain grammatical or spelling errors. Kindly contact undersigned for clarification of any documentation item in question. History of Present Illness Chief Complaint: Could not get up from recliner. Primary Care Provider: Elizabeth Vanegas, History obtained from patient and records. 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 April 28 to 2023 Patient admitted for acute appendicitis status post surgery. Patient refused rehab placement. Family thinks patient should be placed but patient adamantly wants to stay at home. May 01 to 2023 Patient readmitted for delirium secondary to E. coli UTI status post antibiotic Rx. Patient discharged to rehab facility. Patient discharged home from rehab facility yesterday. She already felt strong at time of discharge. Expecting in-home services 2 days from now. At home patient could not get up from recliner/lift chair by herself. Patient denies headache, chest pain, SOB, focal arm or leg weakness. Family could not accompany patient at home until in-home services available. EMS called to patient's home to have patient evaluated at the ER. 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 Allergies Allergy/AdvReac Type Severity Reaction Status Date / Time No Known Allergies Allergy Verified 05/01/23 00:26 Home Medications Medication Instructions Recorded Confirmed Type allopurinol 100 mg tablet 100 mg PO QAM 08/03/18 05/23/23 History cholecalciferol (vitamin D3) 25 2,000 unit PO DAILY 08/03/18 05/23/23 History mcg (1,000 unit) tablet (Vitamin D3) cyanocobalamin (vitamin B-12) 1,000 mcg IM MONTHLY 08/03/18 05/23/23 History 1,000 mcg/mL injection solution duloxetine 30 mg capsule,delayed 30 mg PO HS 08/03/18 05/23/23 History release (Cymbalta) gabapentin 600 mg tablet 600 mg PO TID 08/03/18 05/23/23 History (Neurontin) acetaminophen 500 mg tablet 500 mg PO QID PRN Pain 10/11/18 05/23/23 History (Tylenol Extra Strength) aspirin 81 mg tablet,delayed 81 mg PO QAM 10/11/18 05/23/23 History release (Ecotrin Low Strength) atorvastatin 40 mg tablet 40 mg PO HS #90 tabs 06/06/19 05/23/23 Rx diclofenac sodium 1 % topical gel 2 g topical DIRECTED PRN Pain 01/16/22 05/23/23 History ferrous sulfate 325 mg (65 mg 325 mg PO QAM 01/16/22 05/23/23 History iron) tablet metoprolol succinate 25 mg 25 mg PO DAILY 01/16/22 05/23/23 History tablet,extended release 24 hr pantoprazole 20 mg tablet,delayed 20 mg PO QAM 01/16/22 05/23/23 History release prednisone 5 mg tablet 5 mg PO DAILY 01/16/22 05/23/23 History turmeric root extract 500 mg 500 mg PO QAM 01/16/22 05/23/23 History capsule amlodipine 5 mg tablet (Norvasc) 5 mg PO QAM #1 tab 01/22/22 05/23/23 Rx levothyroxine 88 mcg tablet 88 mcg PO 6XWK 04/28/23 05/23/23 History oxycodone-acetaminophen 5 mg-325 1 tab PO Q6H PRN pain #10 tabs 04/30/23 05/23/23 Rx mg tablet (Percocet) hydrocortisone 2.5 % topical cream 1 applic topical DIRECTED PRN 05/01/23 05/23/23 History with perineal applicator Hemorrhoids Past Med/Surg History Medical History Encounter for pre-operative examination History of ME (myocardial infarction) Coronary artery disease CHF (congestive heart failure) Severe sepsis Inflammatory arthritis Gout Inclusion body myositis 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 HLD (hyperlipidemia) Neuropathy Surgical History S/P cardiac cath History of hysterectomy Family History Other Coronary heart disease Social History Smoking Status: Never smoker Second Hand Exposure: No; Do You Dip or Chew Tobacco: No; Hx Alcohol Use: No Hx Substance Use: No Preferred Language: Kenyan Communication Ability: Effective Fudge Candy Maker Required: No Beliefs That Will Affect Care: None Current Living Situation: Alone Other Information That Helps Us Care for You: No Feels Safe at Home: Yes Safety Concerns: Feels Safe At This Time Assistive Devices: Denture - Upper, Denture - Lower, Glasses and Walker Review of Systems Review of Systems: As per HPI, all other systems reviewed and negative Physical Exam Physical Exam: GENERAL: Comfortable, pleasant, slightly anxious, no respiratory distress SKIN: Normal color, warm HEENT: Bespectacled, [place] palpebral conjunctivae, no ptosis, dry buccal mucosa NECK : Supple, no tenderness CHEST : Decreased breath sounds, no tenderness HEART : RRR, no obvious murmurs ABDOMEN: no distention, nontender EXTREMITIES : No LE swelling/tenderness, no other conspicuous deformities noted NEUROLOGIC : Coherent, no facial asymmetry, MMTS 4/5, gait and stance not assessed Results & Data Results & Data Vital Signs (Past 12 Hours) Vital Signs Temp Pulse Pulse Resp BP BP Pulse Ox 05/23/23 23:48 76 20 165/92 H 98 05/23/23 21:47 05/23/23 20:52 36.3 C L 85 15 189/91 H 95 O2 Del Method 02/10/24 23:48 Room Air 05/23/23 21:47 Room Air 05/23/23 20:52 Room Air Laboratory Results Laboratory Results WBC 10.10 K/ul (4.8-10.8) 05/23/23 22: RBC 3.74 M/uL (4.20-5.40) L 05/23/23 22:30 Hgb 12.1 g/dl (12.0-16.0) 05/23/23 22:30 Hct 36.8 % (37.0-47.0) L 05/23/23 22:30 MCV 98.4 fL (80.0-100.0) 05/23/23 22: MCH 32.4 pg (25.0-34.0) 05/23/23: MCHC 32.9 g/dL (32.0-36.0) 05/23/23: RDW Std Deviation 54.2 fL (36.4-46.3) H 05/23/23: RDW Coeff of Danya 15.0 % (11.5-14.5) H 05/23/23: Plt Count 384 K/uL (130-400) 05/23/23: MPV 10.0 fL (9.4-12.4) 05/23/23: Immature Gran % (Auto) 0.4 % 05/23/23: Neut % (Auto) 68.9 % 05/23/23: Lymph % (Auto) 20.4 % 05/23/23: [place] % (Auto) 6.7 % 05/23/23: Eos % (Auto) 2.7 % 05/23/23:30 Baso % (Auto) 0.9 % 05/23/23:30 Neut # (Auto) 6.96 K/uL (1.40-6.50) H 05/23/23: Lymph # (Auto) 2.06 K/uL (1.20-3.40) 05/23/23 22: [place] # (Auto) 0.68 K/uL (0.11-0.59) H 05/23/23 22: Eos # (Auto) 0.27 K/uL (0.00-0.50) 05/23/23 22:30 Baso # (Auto) 0.09 K/uL (0.00-0.20) 05/23/23 22:30 Immature Gran # (Auto) 0.04 K/uL (0.01-0.20) 05/23/23 22:30 Sodium 143 mmol/L (136-145) 05/23/23 22:30 Potassium 3.9 mmol/L (3.5-5.1) 05/23/23 22:30 Chloride 109 mmol/L (98-107) H 05/23/23 22:30 Carbon Dioxide 22 mmol/L (21-32) 05/23/23 22:30 Anion Gap 12 (3-11) H 05/23/23 22:30 BUN 22 mg/dl (6-23) 05/23/23:30 Creatinine 0.66 mg/dl (0.6-1.2) 05/23/23 22:30 Est Cr Clr Drug Dosing 51.1 ml/min 05/23/23 22:30 Est GFR ( Amer) 94.7 ml/min 05/23/23 22:30 Est GFR (Non-Af Amer) 81.7 ml/min 05/23/23 22:30 BUN/Creatinine Ratio 33.3 (10-20) H 05/23/23 22:30 Glucose 117 mg/dl (70-99(Fasting)) H 05/23/23 22:30 Calcium 9.5 mg/dl (8.6-10.3) 05/23/23:30 Magnesium 1.8 mg/dl (1.7-2.4) 05/23/23:30 Total Bilirubin 0.4 mg/dl (0.2-1.0) 05/23/23 22:30 AST 16 U/L (13-39) 05/23/23 22:30 ALT 14 U/L (7-52) 05/23/23 22:30 Alkaline Phosphatase 102 U/L (34-104) 05/23/23 22:30 Troponin I High Sens 9.1 pg/ml (0-14) 05/23/23 22:30 Total Protein 7.3 gm/dl (6.0-8.3) 05/23/23 22:30 Albumin 3.9 gm/dl (3.4-5.0) 05/23/23 22:30 Globulin 3.4 gm/dl (2.5-4.0) 05/23/23 22:30 Albumin/Globulin Ratio 1.1 (0.9-2) 05/23/23 22:30 SARS-CoV-2, RNA, NAAT NEGATIVE (NEGATIVE) 05/23/23 22:31 Diagnostic Findings EKG as per my interpretation :Rate 70, NSR, LAD, LAFB, inferior infarct, diffuse T wave abnormalities
[2023-05-23] MEDS: LACTATED RINGER'S 1,000 ML IV ONE (23:58)
[2023-05-23] MEDS: MAGNESIUM SULFATE / D5W 1 GM/100 ML BAG IV STA (23:58)
[2023-05-24] MEDS: amLODIPine BESYLATE 5 MG TAB PO STA (00:03)
[2023-05-24] MEDS ORDERED: HYDROCORTISONE HC 2.5% CRM 30GM TUBE EXT PRN (01:40)
[2023-05-24] MEDS ORDERED: PROMETHAZINE HCL 6.25 MG in SODIUM CHLORIDE 0.9% 50 ML IV PRN (01:40)
[2023-05-24] MEDS ORDERED: DICLOFENAC SOD 1% GEL 100 GM TUBE EXT PRN (01:40)
[2023-05-24] MEDS: METOPROLOL SUCC 25MG EXT REL TAB PO STA (02:02)
[2023-05-24 04:12] LABS: Appearance Urine Clear (Clear); Bacteria Urine Automated Negative (Negative); Bilirubin Urine Negative (Negative); Blood Urine Negative (Negative); Color Urine Yellow; Epithelial Cell Urine Auto >30 /lpf (0-5); Glucose Urine UA Negative (Negative); Ketones Urine 1+ (Negative); Leukocyte Esterase Urine 2+ (Negative); Nitrite Urine Negative (Negative); Protein Urine Negative (Negative); RBC Urine Automated 0-4 /hpf (0-4); Specific Gravity Urine 1.022 (1.000-1.030); Urobilinogen Urine Negative (Negative)
[2023-05-24] MEDS: LEVOTHYROXINE SODIUM 88 MCG TABLET PO SCH (05:18)
[2023-05-24 06:13] LABS: Basophils # (auto) 0.09 K/uL (0.00-0.20); Eosinophils # (auto) 0.29 K/uL (0.00-0.50); Eosinophils % (auto) 3.2 %; Hematocrit (blood only) 35.1 % (37.0-47.0); Hemoglobin 11.7 g/dl (12.0-16.0); Immature Granulocytes # (auto) 0.03 K/uL (0.01-0.20); Immature Granulocytes % (auto) 0.3 %; Lymphocytes % (auto) 18.8 %; Mean Corpuscular Hemoglobin 32.5 pg (25.0-34.0); Mean Corpuscular Hgb Conc 33.3 g/dL (32.0-36.0); Mean Corpuscular Volume 97.5 fL (80.0-100.0); Mean Platelet Volume 10.1 fL (9.4-12.4); Monocytes % (auto) 6.6 %; Neutrophils # (auto) 6.32 K/uL (1.40-6.50); Neutrophils % (auto) 70.1 %; Platelet Count 339 K/uL (130-400); RDW Coefficient of Variation 14.7 % (11.5-14.5); RDW Standard Deviation 53.1 fL (36.4-46.3); White Blood Count 9.03 K/ul (4.8-10.8)
[2023-05-24 06:34] LABS: BUN Creatinine Ratio 31.4 (10-20); Calcium 8.6 mg/dl (8.6-10.3); Creatinine Clr Calc Pharmacy 66.1 ml/min; Est GFR (African American) 103.1 ml/min; Est GFR (Non-African American) 88.9 ml/min; Potassium 3.6 mmol/L (3.5-5.1)
--- NOTE | 2023-05-24 07:15 | Electrocardiogram Report ---
Test Reason : Blood Pressure : / mmHG Vent. Rate : 070 BPM Atrial Rate : 070 BPM P-R Int : 172 ms QRS Dur : 070 ms QT Int : 386 ms P-R-T Axes : 000 -11 124 degrees QTc Int : 416 ms Ectopic atrial rhythm possible Inferior infarct (cited on or before 03-AUG-2018) Poor R wave progression, consider anterior OH vs. lead placement vs. LVH T wave abnormality, consider lateral ischemia Abnormal ECG When compared with ECG of 30-APR-2023 23:28, Nonspecific T wave abnormality, worse in Anterior leads Confirmed by Hank Demarco ([id number]) on 05/24/2023 7:14:56 AM Referred By: REFERRED SELF Confirmed By:Armando Demarco
[2023-05-24] MEDS ORDERED: METOPROLOL SUCC 25MG EXT REL TAB PO SCH (09:00)
[2023-05-24] MEDS: ACETAMINOPHEN 325 MG TAB PO PRN (09:26)
[2023-05-24] MEDS: allopurinoL 100 MG TAB PO SCH (09:27)
[2023-05-24] MEDS: ENOXAPARIN INJ 30 MG/0.3 ML SYR SQ SCH (09:27)
[2023-05-24] MEDS: amLODIPine BESYLATE 5 MG TAB PO SCH (09:27)
[2023-05-24] MEDS: predniSONE 5 MG TAB PO SCH (09:28)
[2023-05-24] MEDS: FERROUS SULFATE 325 MG TAB PO SCH (09:28)
[2023-05-24] MEDS: ASPIRIN 81 MG ECTAB PO SCH (09:28)
[2023-05-24] MEDS: GABAPENTIN 600 MG TAB PO SCH (09:28)
[2023-05-24] MEDS: PANTOprazole 40 MG TAB PO SCH (09:28)
--- NOTE | 2023-05-24 14:46 | Hospitalist Progress Note ---
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 Lovenox subcu DNR Admission and Anticipated Discharge Date Admission Date: May 23, 2023 Subjective Follow-up for ambulatory dysfunction, etc. Seen sitting up in bed, comfortable, not in distress States she feels okay overall except for weakness with ambulation Also has mild frontal headache, did not sleep much last night No neurologic focal deficits or symptoms no chest pain, dyspnea, palpitations, dizziness No cough, sputum production No abdominal pain, nausea vomiting, problems urination or bowel movement No other new symptoms Review of Systems Review of Systems: all noted and negative except for above Physical Exam Physical Exam: General- oriented x 3, not in distress, speaks in sentences with no effort or accessory muscle use Eyes- anicteric Neck- no JVD Lungs- clear breath sounds bilaterally, no crackles/wheezing Heart- normal rate, regular rhythm; no murmurs Abdomen- normal bowel sounds, nondistended, soft, nontender Extremities- no pretibial edema, no calf tenderness Neuro- alert, oriented x 3; no gross focal neurologic deficits Skin- warm & dry Results & Data Results & Data Vital Signs (Past 12 Hours) Vital Signs Temp Pulse Resp BP Pulse Ox O2 Del Method 05/24/23 08:35 36.8 C 75 18 149/78 H 98 Room Air all noted and reviewed including below
[2023-05-24] MEDS: DICLOFENAC SOD 1% GEL 100 GM TUBE EXT PRN (15:34)
[2023-05-24] MEDS: DULoxetine HCL 30 MG CAP PO SCH (19:58)
[2023-05-25] MEDS: METOPROLOL SUCC 25MG EXT REL TAB PO SCH (08:56)
[2023-05-25] MEDS: ENOXAPARIN INJ 40 MG/0.4 ML SYR SQ SCH (08:57)
--- NOTE | 2023-05-25 18:08 | Hospitalist Progress Note ---
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 chronic diastolic heart failure, patient on the dry side hx CAD status post stent hypertension, slightly elevated hyperlipidemia, on statin Rx hypothyroidism, euthyroid as of today's TSH Steroid-induced hyperglycemia likely prediabetes, hemoglobin A1c of 6.1 last month Currently patient appears to be medically stable No signs of infection Presentation likely secondary to deconditioning in light of recent admissions, surgery PT and OT evaluation Gentle IV fluids Monitor closely 05/25 Stable overall Remains on the weaker side Continue PT and OT evaluation Patient prefers to return home abdominal services if possible next Social service re: discharge planning, DVT prophylaxis. Lovenox subcu DNR Admission and Anticipated Discharge Date Admission Date: May 24, 2023 Subjective Follow-up for ambulatory dysfunction, etc. Seen sitting up in bed, comfortable, in good spirits States she feels okay overall Still feeling weak although very motivated to participate with PT and OT no chest pain, dyspnea, palpitations, dizziness No other new symptoms Review of Systems Review of Systems: all noted and negative except for above Physical Exam Physical Exam: General- oriented x 3, not in distress, speaks in sentences with no effort or accessory muscle use Eyes- anicteric Neck- no JVD Lungs- clear breath sounds bilaterally, no crackles or wheezing Heart- normal rate, regular rhythm; no murmurs Abdomen- normal bowel sounds, nondistended, soft, nontender Extremities- no pretibial edema, no calf tenderness Neuro- alert, oriented x 3; no gross focal neurologic deficits Skin- warm & dry Results & Data Results & Data Vital Signs (Past 12 Hours) Vital Signs Temp Pulse Pulse Resp BP BP Pulse Ox 05/25/23 14:54 36.7 C 52 L 18 125/78 94 05/25/23 11:57 36.5 C 67 16 116/60 98 05/25/23 07:54 36.5 C 62 18 152/82 H 98 O2 Del Method 05/25/23 14:54 Room Air 05/25/23 11:57 Room Air 05/25/23 07:54 Room Air all noted and reviewed including below
--- NOTE | 2023-05-26 13:53 | Hospitalist Progress Note ---
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 chronic diastolic heart failure, patient on the dry side hx CAD status post stent hypertension hyperlipidemia, on statin Rx hypothyroidism, euthyroid Steroid-induced hyperglycemia likely prediabetes, hemoglobin A1c of 6.1 last month Currently patient appears to be medically stable No signs of infection Presentation likely secondary to deconditioning in light of recent admissions, surgery PT and OT evaluation Gentle IV fluids Monitor closely 05/26 Remained stable but still on the weaker side No signs of infection at this point Plan is to transfer to senior care facility when accepted on Social service re: discharge planning, DVT prophylaxis. Lovenox subcu DNR Admission and Anticipated Discharge Date Admission Date: May 24, 2023 Subjective Follow-up for weakness, deconditioning, etc. Seen resting in bed, comfortable, not in distress In good spirits States she feels fine overall Still on the weak side but improving Otherwise denies new symptoms Review of Systems Review of Systems: all noted and negative except for above Physical Exam Physical Exam: General- oriented x 3, not in distress, speaks in sentences with no effort or accessory muscle use Eyes- anicteric Neck- no JVD Lungs- clear breath sounds bilaterally, no crackles or wheezes, no rhonchi Heart- normal rate, regular rhythm; no murmurs Abdomen- normal bowel sounds, nondistended, soft, nontender Extremities- no pretibial edema, no calf tenderness Neuro- alert, oriented x 3; no gross focal neurologic deficits Skin- warm & dry Results & Data Results & Data Vital Signs (Past 12 Hours) Vital Signs Temp Pulse Resp BP Pulse Ox O2 Del Method 05/26/23 07:35 36.9 C 60 16 155/83 H 97 Room Air all noted and reviewed including below
[2023-05-27] MEDS: DICLOFENAC SOD 1% GEL 100 GM TUBE EXT SCH (14:25)
--- NOTE | 2023-05-27 15:40 | Hospitalist Progress Note ---
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 She was recently discharged from rehab. Leukocytosis present on admission; resolved Serum sodium, creatinine within normal limits PT OT recommends rehab. Patient to be discharged possibly on to SNF. chronic diastolic heart failure, patient on the dry sidecontinue on metoprolol hx CAD status post stent hypertension hyperlipidemia, on statin Rx hypothyroidism, euthyroid Steroid-induced hyperglycemia likely prediabetes, hemoglobin A1c of 6.1 last month Social service re: discharge planning, DVT prophylaxis. Lovenox subcu DNR/DNI Disposition; patient medically stable for transfer to rehab. Please note the above document was generated using voice recognition software. It may contain grammatical, syntax or spelling errors. Any formal questions or concerns about the content, text or information contained within the body of this dictation should be directly addressed to the provider for clarification Admission and Anticipated Discharge Date Admission Date: May 24, 2023 Subjective Patient seen and examined at bedside. Patient is sitting up on the chair; not in distress. She reports pain in her bilateral wrist. No significant overnight events Review of Systems 2 Review of Systems: All systems reviewed & are unremarkable except as noted in Subjective Physical Exam Physical Exam: General- oriented x 3, not in distress, speaks in sentences with no effort or accessory muscle use Lungs- clear breath sounds bilaterally, no crackles or wheezes, no rhonchi Heart- normal rate, regular rhythm; no murmurs Abdomen- normal bowel sounds, nondistended, soft, nontender Extremities- no pretibial edema, no calf tenderness Neuro- alert, oriented x 3; no gross focal neurologic deficits Skin- warm & dry Results & Data Results & Data Vital Signs (Past 12 Hours) Vital Signs Temp Pulse Resp BP Pulse Ox O2 Del Method 05/27/23 15:26 36.8 C 64 16 109/74 96 Room Air 05/27/23 07:17 36.5 C 72 16 158/94 H 96 Room Air 05/27/23 07:00 Room Air
[2023-05-28 08:36] LABS: Basophils # (auto) 0.09 K/uL (0.00-0.20); Basophils % (auto) 0.9 %; Eosinophils # (auto) 0.33 K/uL (0.00-0.50); Eosinophils % (auto) 3.3 %; Hemoglobin 12.9 g/dl (12.0-16.0); Immature Granulocytes # (auto) 0.03 K/uL (0.01-0.20); Immature Granulocytes % (auto) 0.3 %; Lymphocytes # (auto) 3.09 K/uL (1.20-3.40); Lymphocytes % (auto) 31.1 %; Mean Corpuscular Hemoglobin 32.7 pg (25.0-34.0); Mean Corpuscular Hgb Conc 33.9 g/dL (32.0-36.0); Mean Corpuscular Volume 96.2 fL (80.0-100.0); Mean Platelet Volume 9.7 fL (9.4-12.4); Monocytes # (auto) 0.96 K/uL (0.11-0.59); Monocytes % (auto) 9.7 %; Neutrophils # (auto) 5.42 K/uL (1.40-6.50); Neutrophils % (auto) 54.7 %; Platelet Count 296 K/uL (130-400); RDW Coefficient of Variation 14.2 % (11.5-14.5); RDW Standard Deviation 50.9 fL (36.4-46.3); Red Blood Count 3.95 M/uL (4.20-5.40); White Blood Count 9.92 K/ul (4.8-10.8)
[2023-05-28 08:58] LABS: BUN Creatinine Ratio 34.7 (10-20); Calcium 9.1 mg/dl (8.6-10.3); Creatinine Clr Calc Pharmacy 68.8 ml/min; Est GFR (African American) 104.4 ml/min; Est GFR (Non-African American) 90.1 ml/min; Potassium 3.5 mmol/L (3.5-5.1)
--- NOTE | 2023-05-28 13:27 | Discharge Summary ---
Date of Service May 28, 2023 Admission HPI Per Admitting Provider History obtained from patient and records. Medical history significant for chronic diastolic heart failure (EF 60-65%, TTE 2023), CAD status post stent, PSVT, hypertension, hyperlipidemia, hypothyroidism, ambulatory dysfunction secondary to CIDP/inclusion body myositis currently on steroid Rx, inflammatory arthritis as per records, chronic anemia (baseline hemoglobin of 11) Two [facility] admissions last month. April [id number] Patient admitted for acute appendicitis status post surgery. Patient refused rehab placement. Family thinks patient should be placed but patient adamantly wants to stay at home. May [id number] Patient readmitted for delirium secondary to E. coli UTI status post antibiotic Rx. Patient discharged to rehab facility. Patient discharged home from rehab facility yesterday. She already felt strong at time of discharge. Expecting in-home services 2 days from now. At home patient could not get up from recliner/lift chair by herself. Patient denies headache, chest pain, SOB, focal arm or leg weakness. Family could not accompany patient at home until in-home services available. EMS called to patient's home to have patient evaluated at the ER. 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 Admission Exam Per Admitting Provider GENERAL: Comfortable, pleasant, slightly anxious, no respiratory distress SKIN: Normal color, warm HEENT: Bespectacled, [place] palpebral conjunctivae, no ptosis, dry buccal mucosa NECK : Supple, no tenderness CHEST : Decreased breath sounds, no tenderness HEART : RRR, no obvious murmurs ABDOMEN: no distention, nontender EXTREMITIES : No LE swelling/tenderness, no other conspicuous deformities noted NEUROLOGIC : Coherent, no facial asymmetry, MMTS 4/5, gait and stance not assessed Principal Diagnosis Ambulatory dysfunction: Discharge Exam General- oriented x 3, not in distress, speaks in sentences with no effort or accessory muscle use Lungs- clear breath sounds bilaterally, no crackles or wheezes, no rhonchi Heart- normal rate, regular rhythm; no murmurs Abdomen- normal bowel sounds, nondistended, soft, nontender Extremities- no pretibial edema, no calf tenderness Neuro- alert, oriented x 3; no gross focal neurologic deficits Skin- warm & dry Discharge Data Allergies Allergy/AdvReac Type Severity Reaction Status Date / Time lemon Allergy Verified 05/28/23 08:46 orange Allergy Verified 05/28/23 08:46 [place] And Derivatives AdvReac Hives Verified 05/27/23 08:20 Consultations 05/23/23 23:13 ED Decision to Admit Stat Hospital Course (1) Ambulatory dysfunction: Baseline dysfunction and functional disability History 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 She was recently discharged from rehab. Leukocytosis present on admission; resolved Serum sodium, creatinine within normal limits PT OT evaluation was done; patient was recommended rehab. Patient was accepted to subacute rehab. Please note the above document was generated using voice recognition software. It may contain grammatical, syntax or spelling errors. Any formal questions or concerns about the content, text or information contained within the body of this dictation should be directly addressed to the provider for clarification Total Time Total Time Spent Total Time Spent (In Minutes): 35 Total Time Includes: Examination of the Patient, Discharge Planning, Medication Reconciliation, Communication With Other Providers and Other Discharge Plan Discharge Items Patient Disposition: Transfer Detention Fac Reason For Visit: WEAKNESS Discharge Diagnosis: Ambulatory dysfunction Activity: Resume your previous activity Non-emergency contact: Primary Care Provider Call non-emergency contact if: you have any medication questions and your symptoms worsen Follow-up/Referrals: Elizabeth Vanegas DO [Primary Care Provider] - Diet: Regular Addtl Attending Provider Instructions: You were admitted to the hospital due to ambulatory dysfunction. You underwent PT OT evaluation; you are recommended to go to rehab to improve your ambulatory status. Please take medication as prescribed below. Please follow-up with your primary care doctor in 1 week Pending Studies at Discharge: No Stand-Alone Forms: My [facility] Medications and DC Order Prescriptions: Continued atorvastatin 40 mg tablet 40 mg PO HS Qty: 90 3RF gabapentin [Neurontin] 600 mg tablet 600 mg PO TID Qty: 90 0RF prednisone 5 mg tablet 5 mg PO DAILY Qty: 30 0RF amlodipine [Norvasc] 5 mg Tablet 5 mg PO QAM Qty: 30 0RF allopurinol 100 mg Tablet 100 mg PO QAM Qty: 30 0RF aspirin [Ecotrin Low Strength] 81 mg tablet,delayed release (DR/EC) 81 mg PO QAM Qty: 30 0RF acetaminophen [Tylenol Extra Strength] 500 mg tablet 500 mg PO QID PRN (Reason: Pain) Qty: 30 0RF pantoprazole 20 mg tablet,delayed release (DR/EC) 20 mg PO QAM Qty: 30 0RF hydrocortisone 2.5 % cream with perineal applicator 1 applic topical DIRECTED PRN (Reason: Hemorrhoids) Qty: 30 0RF cyanocobalamin (vitamin B-12) 1,000 mcg/mL Solution 1,000 mcg IM MONTHLY Qty: 10 0RF ferrous sulfate 325 mg (65 mg iron) tablet 325 mg PO QAM Qty: 30 0RF metoprolol succinate 25 mg tablet extended release 24 hr 25 mg PO DAILY Qty: 30 0RF duloxetine [Cymbalta] 30 mg capsule,delayed release(DR/EC) 30 mg PO HS Qty: 30 0RF cholecalciferol (vitamin D3) [Vitamin D3] 1,000 unit Tablet 2,000 unit PO DAILY Qty: 30 0RF diclofenac sodium 1 % gel 2 g TOPICAL DIRECTED PRN (Reason: Pain) Qty: 100 0RF levothyroxine 88 mcg tablet 88 mcg PO 6XWK Qty: 60 0RF Rx Instructions: Only takes it on /Thu//Thu/Sat/Sun Discontinued turmeric root extract 500 mg Capsule 500 mg PO QAM oxycodone-acetaminophen [Percocet] 5-325 mg tablet 1 tab PO Q6H PRN (Reason: pain) Qty: 10 0RF Discharge Orders: Discharge Order (Routine); Ordered 05/28/23 Ordered By: Wenceslao Mehta Admission Data Admit Date/Time: 05/24/23 15:07 Attending Provider: Wenceslao Mehta Admit Provider: Charlie Nava Primary Care Provider: Elizabeth Vanegas Other Providers: Luis Enrique Capps
== END 2023-05-28 16:16 | DRG 556 ==
LOC: ED 20:57 → 3W 20:57 → SUATTDRO 05-24 15:07

== ENCOUNTER 2023-06-13 17:24 | Inpatient (IN) ==
--- NOTE | 2023-06-13 18:29 | Emergency Department Note ---
Impression & Plan UTI (urinary tract infection) ED Provider Note NAME: SHCUYLER AU AGE: 82 SEX: F : 1940 ARRIVES VIA: Ambulance INFORMANT: Patient, ED PROVIDER(S): Steven Tavarez MD CHIEF COMPLAINT: Placement HPI: This is an 82-year-old female presenting for possible placement. Patient arrived via BLS as patient was recently had a chcf. Patient had passed all cognitive testing and was able to sign herself out of this chcf. She returns and that she set her self up with home care. She returned to her home which her daughter lives then and her daughter states that she was unable to return home due to lack of resources. EMS was then called as patient had nowhere to stay. ROS: See above HPI for pertinent positives & negatives. A total of 10 systems reviewed and were otherwise negative. PAST MEDICAL HISTORY: See Below PAST SURGICAL HISTORY: See Below FAMILY HISTORY: See Below SOCIAL HISTORY: See Below HOME MEDICATIONS: See Below ALLERGIES: See Below VITALS: See Below PHYSICAL EXAMINATION: General: resting comfortably in no acute distress, disheveled Head: Normocephalic and atraumatic Eyes: Normal inspection, extraocular muscles intact Ear, nose, throat: Normal external exam Neck: Normal range of motion Respiratory: lungs clear to auscultation bilaterally Cardiovascular: Regular rate/rhythm, no murmur GI: soft, nontender, no guarding or rebound Extremities: nontender, moves all extremities Neuro: The patient awake and alert, appropriately conversive, no focal deficits, symmetric faces Skin: Warm, dry, and intact MEDICAL DECISION MAKING: This is a 82-year-old female presenting for possible placement. Patient will sign herself out of a chcf and now does not have a place to stay. She is alert and oriented, time including telling a linear story. There are some discrepancy between what she says and what the chcf had said as well as her daughter. This was evaluated by rn case management. -Patient not suicidal or homicidal at this time. -Unfortunately cannot go home due to patient's current care needs without anything set up. She does not have a current home unfortunately as well. Will admit her for possible placement at this time. -Otherwise patient does have a possible UTI at this time based on urinalysis, this may be contributing and causing her symptoms. She also has a leukocytosis which may be related.. Will give her antibiotics and admit her as well. Differential diagnosis: Altered mental status, UTI, ER treatment provided: See below Diagnostics interpreted by me: ECG: None Cardiac Monitoring: An order was placed for continuous cardiac monitoring. The monitor shows a rate of 64 with sinus rhythm. Laboratory studies: As stated above and show below. Imaging studies: See below. Past Med/Surg History Medical History Encounter for pre-operative examination History of [place] (myocardial infarction) Coronary artery disease CHF (congestive heart failure) Severe sepsis Inflammatory arthritis Gout Inclusion body myositis 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 HLD (hyperlipidemia) Neuropathy Surgical History S/P cardiac cath History of hysterectomy Family History Other Coronary heart disease Social History Smoking Status: Never smoker Second Hand Exposure: No; Do You Dip or Chew Tobacco: No; Hx Alcohol Use: No Hx Substance Use: No Preferred Language: Spanish Communication Ability: Effective Product Marketing Coordinator Required: No Beliefs That Will Affect Care: None Current Living Situation: Alone Feels Safe at Home: Yes Assistive Devices: Walker and Other Allergies Allergies Allergy/AdvReac Type Severity Reaction Status Date / Time lemon Allergy Verified 05/28/23 08:46 orange Allergy Verified 05/28/23 08:46 [place] And Derivatives AdvReac Hives Verified 05/27/23 08:20 Home Meds Previous Rx's Medication Instructions Recorded acetaminophen 500 mg tablet 500 mg PO QID PRN Pain #30 tabs 05/28/23 (Tylenol Extra Strength) allopurinol 100 mg tablet 100 mg PO QAM #30 tabs 05/28/23 amlodipine 5 mg tablet (Norvasc) 5 mg PO QAM #30 tabs 05/28/23 aspirin 81 mg tablet,delayed 81 mg PO QAM #30 tabs 05/28/23 release (Ecotrin Low Strength) atorvastatin 40 mg tablet 40 mg PO HS #90 tabs 05/28/23 cholecalciferol (vitamin D3) 25 2,000 unit PO DAILY #30 tabs 05/28/23 mcg (1,000 unit) tablet (Vitamin D3) cyanocobalamin (vitamin B-12) 1,000 mcg IM MONTHLY #10 mL 05/28/23 1,000 mcg/mL injection solution diclofenac sodium 1 % topical gel 2 g topical DIRECTED PRN Pain 05/28/23 #100 grams duloxetine 30 mg capsule,delayed 30 mg PO HS #30 caps 05/28/23 release (Cymbalta) ferrous sulfate 325 mg (65 mg 325 mg PO QAM #30 tabs 05/28/23 iron) tablet gabapentin 600 mg tablet 600 mg PO TID #90 tabs 05/28/23 (Neurontin) hydrocortisone 2.5 % topical cream 1 applic topical DIRECTED PRN 05/28/23 with perineal applicator Hemorrhoids #30 grams levothyroxine 88 mcg tablet 88 mcg PO 6XWK #60 tabs 05/28/23 metoprolol succinate 25 mg 25 mg PO DAILY #30 tabs 05/28/23 tablet,extended release 24 hr pantoprazole 20 mg tablet,delayed 20 mg PO QAM #30 tabs 05/28/23 release prednisone 5 mg tablet 5 mg PO DAILY #30 tabs 05/28/23 Results & Data (ED) Vital Signs Vital Signs - 24 hr 06/13/23 17:24 06/13/23 19:14 06/13/23 19:53 Temperature 36.6 C Temperature Source Oral Pulse Rate 64 57 L Pulse Rate [Apical] 56 L Pulse Rate from SpO2 Sensor Respiratory Rate 18 18 Respiratory Effort / Characteristics Non-Labored Non-Labored Respiratory Depth Normal Normal Respiratory Pattern Regular Blood Pressure 181/93 H Blood Pressure [Right Arm] 175/83 H Blood Pressure Mean 122 Blood Pressure Mean [Right Arm] 113 Pulse Oximetry 97 94 Oxygen Delivery Method Room Air Room Air Sepsis Recent Fever Within 48 Hours No Sepsis New/Unexplained Change in Mental Status N/A Sepsis Action Taken by Nursing No Action Required 06/13/23 21:00 06/13/23 22:00 06/13/23 22:00 Temperature Temperature Source Pulse Rate 57 L Pulse Rate [Apical] 62 Pulse Rate from SpO2 Sensor 55 L Respiratory Rate 18 17 Respiratory Effort / Characteristics Non-Labored Respiratory Depth Normal Respiratory Pattern Blood Pressure 147/91 H Blood Pressure [Right Arm] 162/82 H Blood Pressure Mean 124 Blood Pressure Mean [Right Arm] 108 Pulse Oximetry 97 97 Oxygen Delivery Method Room Air Sepsis Recent Fever Within 48 Hours Sepsis New/Unexplained Change in Mental Status Sepsis Action Taken by Nursing 06/13/23 22:52 06/13/23 23:00 06/13/23 23:00 Temperature Temperature Source Pulse Rate 64 Pulse Rate [Apical] 58 L Pulse Rate from SpO2 Sensor 56 L Respiratory Rate 18 19 Respiratory Effort / Characteristics Non-Labored Respiratory Depth Normal Respiratory Pattern Blood Pressure 172/84 H Blood Pressure [Right Arm] 147/91 H Blood Pressure Mean 121 Blood Pressure Mean [Right Arm] 109 Pulse Oximetry 96 93 Oxygen Delivery Method Room Air Sepsis Recent Fever Within 48 Hours Sepsis New/Unexplained Change in Mental Status Sepsis Action Taken by Nursing Laboratory Data 06/13/23 Unknown 06/13/23 Unknown Lab Results 06/13/23 06/13/23 Range/Units 18:27 Unknown WBC 12.39 H (4.8-10.8) K/ul RBC 3.84 L (4.20-5.40) M/uL Hgb 12.5 (12.0-16.0) g/dl Hct 38.4 (37.0-47.0) % MCV 100.0 (80.0-100.0) fL MCH 32.6 (25.0-34.0) pg MCHC 32.6 (32.0-36.0) g/dL RDW Std Deviation 54.0 H (36.4-46.3) fL RDW Coeff of Danya 14.8 H (11.5-14.5) % Plt Count 360 (130-400) K/uL MPV 10.2 (9.4-12.4) fL Immature Gran % (Auto) 0.4 % Neut % (Auto) 68.3 % Lymph % (Auto) 21.7 % [place] % (Auto) 6.6 % Eos % (Auto) 2.3 % Baso % (Auto) 0.7 % Neut # (Auto) 8.46 H (1.40-6.50) K/uL Lymph # (Auto) 2.69 (1.20-3.40) K/uL Jackson # (Auto) 0.82 H (0.11-0.59) K/uL Eos # (Auto) 0.28 (0.00-0.50) K/uL Baso # (Auto) 0.09 (0.00-0.20) K/uL Immature Gran # (Auto) 0.05 (0.01-0.20) K/uL Sodium 142 (136-145) mmol/L Potassium 3.9 (3.5-5.1) mmol/L Chloride 110 H (98-107) mmol/L Carbon Dioxide 22 (21-32) mmol/L Anion Gap 10 (3-11) BUN 19 (6-23) mg/dl Creatinine 0.58 L (0.6-1.2) mg/dl Est Cr Clr Drug Dosing Not Reportable Est GFR ( Amer) 98.8 ml/min Est GFR (Non-Af Amer) 85.2 ml/min BUN/Creatinine Ratio 32.8 H (10-20) Glucose 119 H (70-99(Fasting)) mg/dl Calcium 9.2 (8.6-10.3) mg/dl Total Bilirubin 0.3 (0.2-1.0) mg/dl AST 13 (13-39) U/L ALT 10 (7-52) U/L Alkaline Phosphatase 104 (34-104) U/L Total Protein 7.0 (6.0-8.3) gm/dl Albumin 4.0 (3.4-5.0) gm/dl Globulin 3.0 (2.5-4.0) gm/dl Albumin/Globulin Ratio 1.3 (0.9-2) TSH 0.747 (0.300-4.500) uIu/ml Urine Color Yellow Urine Appearance Cloudy A (Clear) Urine pH 5.0 (4.5-7.5) Ur Specific [place] 1.032 H (1.000-1.030) Urine Protein Trace H (Negative) Urine Glucose (UA) Negative (Negative) Urine Ketones Trace H (Negative) Urine Blood Negative (Negative) Urine Nitrite Negative (Negative) Urine Bilirubin Negative (Negative) Urine Urobilinogen Negative (Negative) Ur Leukocyte Esterase 2+ H (Negative) Urine WBC (Auto) >30 H (0-5) /hpf Urine RBC (Auto) 0-4 (0-4) /hpf U Hyaline Cast (Auto) 1-5 (0-5) /lpf U Epithel Cells (Auto) >30 H (0-5) /lpf Urine Bacteria (Auto) 1+ H (Negative) Salicylates < 3.0 L (3.0-30) mg/dl Urine Opiates Screen Neg (Neg) Ur Methadone, Qual Neg (Neg) Acetaminophen 9 L (10-30) ug/ml Urine Barbiturates Neg (Neg) Ur Phencyclidine (PCP) Neg (Neg) U Amphetamin/Meth Scrn Neg (Neg) MDMA (Ecstasy) Screen Neg (Neg) U Benzodiazepines Scrn Neg (Neg) Ur Cocaine Metabolite Neg (Neg) U Marijuana (THC) Screen Neg (Neg) Ethyl Alcohol mg/dL < 10.0 (<10.0) mg/dl SARS-CoV-2, RNA, NAAT NEGATIVE (NEGATIVE) Administered Medications Discontinued Medications Ceftriaxone Sodium (Rocephin) 2,000 mg in 50 mls @ 100 mls/hr IV NOW STA Stop: 06/13/23 22:47 Last Infusion: 06/13/23 22:58 Dose: Infused Documented By: Admin: 06/13/23 22:27 Dose: 100 mls/hr Documented By: GABE Discharge Plan Visit Data Chief Complaint: Illness Stated Complaint: [facility] ED Provider: Steven Tavarez Discharge Problem: UTI (urinary tract infection) Forms Stand Alone Forms: My [facility] Prescriptions Prescriptions: No Action atorvastatin 40 mg tablet 40 mg PO HS Qty: 90 3RF gabapentin [Neurontin] 600 mg tablet 600 mg PO TID Qty: 90 0RF prednisone 5 mg tablet 5 mg PO DAILY Qty: 30 0RF amlodipine [Norvasc] 5 mg Tablet 5 mg PO QAM Qty: 30 0RF allopurinol 100 mg Tablet 100 mg PO QAM Qty: 30 0RF aspirin [Ecotrin Low Strength] 81 mg tablet,delayed release (DR/EC) 81 mg PO QAM Qty: 30 0RF acetaminophen [Tylenol Extra Strength] 500 mg tablet 500 mg PO QID PRN (Reason: Pain) Qty: 30 0RF pantoprazole 20 mg tablet,delayed release (DR/EC) 20 mg PO QAM Qty: 30 0RF hydrocortisone 2.5 % cream with perineal applicator 1 applic topical DIRECTED PRN (Reason: Hemorrhoids) Qty: 30 0RF levothyroxine 88 mcg tablet 88 mcg PO 6XWK Qty: 60 0RF Rx Instructions: Only takes it on /Thu//Thu/Sat/Sun cyanocobalamin (vitamin B-12) 1,000 mcg/mL Solution 1,000 mcg IM MONTHLY Qty: 10 0RF ferrous sulfate 325 mg (65 mg iron) tablet 325 mg PO QAM Qty: 30 0RF metoprolol succinate 25 mg tablet extended release 24 hr 25 mg PO DAILY Qty: 30 0RF duloxetine [Cymbalta] 30 mg capsule,delayed release(DR/EC) 30 mg PO HS Qty: 30 0RF cholecalciferol (vitamin D3) [Vitamin D3] 1,000 unit Tablet 2,000 unit PO DAILY Qty: 30 0RF diclofenac sodium 1 % gel 2 g TOPICAL DIRECTED PRN (Reason: Pain) Qty: 100 0RF Referrals Referrals: Elizabeth Vanegas DO [Primary Care Provider] -
[2023-06-13 20:10] LABS: Appearance Urine Cloudy (Clear); Bacteria Urine Automated 1+ (Negative); Bilirubin Urine Negative (Negative); Blood Urine Negative (Negative); Color Urine Yellow; Epithelial Cell Urine Auto >30 /lpf (0-5); Glucose Urine UA Negative (Negative); Ketones Urine Trace (Negative); Leukocyte Esterase Urine 2+ (Negative); Nitrite Urine Negative (Negative); Protein Urine Trace (Negative); RBC Urine Automated 0-4 /hpf (0-4); Specific Gravity Urine 1.032 (1.000-1.030); Urobilinogen Urine Negative (Negative); WBC Urine Automated >30 /hpf (0-5)
[2023-06-13 20:15] LABS: Basophils # (auto) 0.09 K/uL (0.00-0.20); Basophils % (auto) 0.7 %; Eosinophils # (auto) 0.28 K/uL (0.00-0.50); Eosinophils % (auto) 2.3 %; Hematocrit (blood only) 38.4 % (37.0-47.0); Hemoglobin 12.5 g/dl (12.0-16.0); Immature Granulocytes # (auto) 0.05 K/uL (0.01-0.20); Immature Granulocytes % (auto) 0.4 %; Lymphocytes # (auto) 2.69 K/uL (1.20-3.40); Lymphocytes % (auto) 21.7 %; Mean Corpuscular Hemoglobin 32.6 pg (25.0-34.0); Mean Corpuscular Hgb Conc 32.6 g/dL (32.0-36.0); Mean Platelet Volume 10.2 fL (9.4-12.4); Monocytes # (auto) 0.82 K/uL (0.11-0.59); Monocytes % (auto) 6.6 %; Neutrophils # (auto) 8.46 K/uL (1.40-6.50); Neutrophils % (auto) 68.3 %; Platelet Count 360 K/uL (130-400); RDW Coefficient of Variation 14.8 % (11.5-14.5); Red Blood Count 3.84 M/uL (4.20-5.40); White Blood Count 12.39 K/ul (4.8-10.8)
[2023-06-13 20:27] LABS: Alanine Aminotransferase 10 U/L (7-52); Albumin Globulin Ratio 1.3 (0.9-2); Alkaline Phosphatase 104 U/L (34-104); Anion Gap 10 (3-11); Aspartate Aminotransferase 13 U/L (13-39); BUN Creatinine Ratio 32.8 (10-20); Bilirubin,Total 0.3 mg/dl (0.2-1.0); Blood Urea Nitrogen 19 mg/dl (6-23); Calcium 9.2 mg/dl (8.6-10.3); Carbon Dioxide 22 mmol/L (21-32); Chloride 110 mmol/L (98-107); Est GFR (African American) 98.8 ml/min; Est GFR (Non-African American) 85.2 ml/min; Glucose 119 mg/dl (70-99(Fasting)); Potassium 3.9 mmol/L (3.5-5.1); Sodium 142 mmol/L (136-145)
[2023-06-13 20:34] LABS: Amphetamines+Metham, Urine Neg (Neg); Barbiturates, Urine Neg (Neg); Benzodiazepine, Urine Neg (Neg); Cocaine, Urine Neg (Neg); MDMA (Ecstacy), Urine Neg (Neg); Marijuana, Urine Neg (Neg); Methadone, Urine Neg (Neg); Opiate, Urine Neg (Neg); Phencyclidine, Urine Neg (Neg)
[2023-06-13 20:37] LABS: Acetaminophen 9 ug/ml (10-30); Salicylate < 3.0 mg/dl (3.0-30)
[2023-06-13 20:42] LABS: Thyroid Stimulating Hormone 0.747 uIu/ml (0.300-4.500)
--- OUTSIDE RECORDS SUMMARY | 2023-06-13 20:46 | External Medical Summary | Summary of Care ---
Author Name Unknown Organization [facility] [address] [address] Phone [phone] Care Team Providers Care Suture Winder Hand Name Role Phone Elizabeth Vanegas DO Primary Care Provider [phone] Reason for Visit * Reason Onset Date Comments [facility]: Screening 05/25/2023 Encounter Details Date Type Department Care Team (Late st Contact Info) Description 05/25/2023 Telephone [facility], [facility] [address] [facility] [place] [address] [facility], Nurse [facility] [address] [place] [address] [facility]: Screening Allergies No known active allergiesdocumented as of this encounter (statuses as of 05/26/2023) Medications Medication Sig Dispensed Refills Start Date [...] as of this encounter (statuses as of 05/26/2023) Active Problems Problem Noted Date Diagnosed Date [...] 69 10/11 Coronary artery disease invo lving [place] coronary artery of [place] heart without angina pectoris 08/10/2018 S/P angioplasty with stent 08/10/2018 History of [place] (myocardial infarction) 08/10/2018 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 Mixed dyslipidemia 05/16/2005 7 OSTEOARTHROS NOS-L-LEG 04/18 documented as of this encounter (statuses as of 05/26/2023) Immunizations Name Administration Dates Next Due COVID-19 mRNA, LNP-s, No Pre serve, 2-Dose Series ([employer]) 07/10/2020,06/19/2020 COVID-19, LNP-s, No Preserve , Marlon-sucrose, [...] encounter Miscellaneous Notes * Telephone Encounter - Katherin Lawton LPN - 05/25/2023 4:09 PM EST Sent to Customs Patrol Officer Akiko Kraig for review for renroll for [facility] Diana Chandler was referred as a potential candidate for enrollment for [facility]. A review of this chart was completed and: OPCM Whit Mcqueen referring Ok to reenroll per [facility] leadership On hospital list to follow d/c Diana hCandler was referred as a potential candidate for enrollment for [facility]. A review of this chart was completed and: Diana meets criteria for [facility]. Jump to Initiation Referring care team was notified via : [employer] communication documented in this encounter Plan of Treatment Upcoming Encounters Date Type Department Care Team (Late st Contact Info) Description 06/04/2023 1:00 PM EST Office Visit Orthopaedics [address] [place] [address] Koffi Logan MD [address] [place] [address] 09/29/2023 10:30 AM EDT Office Visit Family Medicine [address] [place] [address] [place] [address] 09/29/2023 11:30 AM EDT Office Visit Cardiology [address] [place] [address] Elton Smith PA-C [address] [place] [address] Health Maintenance Due Date Last Done Comments [...] filedocumented as of this encounter Care Teams Suture Winder Hand Relationship Specialty Start Date End Date Elizabeth Vanegas DO [address] [place] [address] [place] [address] PCP - General Internal Medicine 08/05/22 documented as of this encounter
--- OUTSIDE RECORDS SUMMARY | 2023-06-13 20:46 | External Medical Summary | Summary of Care ---
Author Name Unknown Organization [facility] Address [address] [facility] [place] [address] Phone [phone] Care Team Providers Care Fabric Finisher Name Role Phone Elizabeth Vanegas DO Primary Care Provider [phone] Reason for Visit * Reason Onset Date Comments Advice 06/11/2023 Encounter Details Date Type Department Care Team (Late st Contact Info) Description 06/11/2023 Telephone Family Medicine [address] [address] Elizabeth [address]egas [address] [address] Advice Allergies No known active allergiesdocumented as of this encounter (statuses as of 06/11/2023) Medications Medication Sig Dispensed Refills Start Date [...] as of this encounter (statuses as of 06/11/2023) Active Problems Problem Noted Date Diagnosed Date [...] 69 10/11 Coronary artery disease invo lving [place] coronary artery of [place] heart without angina pectoris 08/10/2018 S/P angioplasty with stent 08/10/2018 History of [place] (myocardial infarction) 08/10/2018 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 Mixed dyslipidemia 05/16/2005 7 OSTEOARTHROS NOS-L-LEG 04/18 documented as of this encounter (statuses as of 06/11/2023) Immunizations Name Administration Dates Next Due COVID-19 mRNA, LNP-s, No Pre serve, 2-Dose Series ([employer]) 07/10/2020,06/19/2020 COVID-19, LNP-s, No Preserve , Marlon-sucrose, [...] Telephone Encounter - Gin Chaney RN - 06/11/2023 11:30 AM EST We have had several phone calls from this patient, she wants Dr Vanegas to help her get discharged. I called the patient and advised her that she needs to speak with the Doctors and Nurses at that facility with her concerns. She said she has never seen a doctor there. I advised that she talk to her nurses at that facility about her concerns. She wanted to know if Dr Vanegas would arrange for her to have help at home. I advised her that when she gets discharged they should make those arrangements for anything she will need at home, I also advised that when she gets discharged she will need an appt to see us here in the clinic.If she stillneeds anything for home we will arrange it at that time * Telephone Encounter - Yahaira Lopez OSA - 06/11/2023 10:37 AM EST Diana is currently at [facility] and needs to reach Dr. Vanegas, she needs her to call her back as soon as possible to get some advice. Patient did not specify what she was needing, just that she needed to speak to Dr. Vanegas documented in this encounter Plan of Treatment Upcoming Encounters Date Type Department Care Team (Late st Contact Info) Description 09/29/2023 10:30 AM EDT Office Visit Family Medicine [address] [place] [address] [place] [address] 09/29/2023 11:30 AM EDT Office Visit Cardiology [address] [place] [address] Elton Smith PA-C [address] [place] [address] Health Maintenance Due Date Last Done Comments [...] filedocumented as of this encounter Care Teams Fabric Finisher Relationship Specialty Start Date End Date Elizabeth Vanegas DO [address] [place] [address] [place] [address] PCP - General Internal Medicine 08/05/22 documented as of this encounter
--- OUTSIDE RECORDS SUMMARY | 2023-06-13 20:46 | External Medical Summary | Summary of Care ---
Author Name Unknown Organization [facility] Address [address] [facility] [place] [address] Phone [phone] Care Team Providers Care Staff Nurse Anesthetist Name Role Phone Elizabeth Vanegas DO Primary Care Provider [phone] Reason for Visit * Reason Onset Date Comments [facility]: Maintenance 05/29/2023 Encounter Details Date Type Department Care Team (Late st Contact Info) Description 05/29/2023 Telephone [facility], [facility] [address] [facility] [place] [address] [facility], Nurse [facility] [address] [facility] [place] [address] [facility]: Maintenance Allergies No known active allergiesdocumented as of this encounter (statuses as of 05/29/2023) Medications Medication Sig Dispensed Refills Start Date [...] as of this encounter (statuses as of 05/29/2023) Active Problems Problem Noted Date Diagnosed Date [...] 69 10/11 Coronary artery disease invo lving [place] coronary artery of [place] heart without angina pectoris 08/10/2018 S/P angioplasty with stent 08/10/2018 History of [place] (myocardial infarction) 08/10/2018 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 Mixed dyslipidemia 05/16/2005 7 OSTEOARTHROS NOS-L-LEG 04/18 documented as of this encounter (statuses as of 05/29/2023) Immunizations Name Administration Dates Next Due COVID-19 mRNA, LNP-s, No Pre serve, 2-Dose Series ([employer]) 07/10/2020,06/19/2020 COVID-19, LNP-s, No Preserve , Marlon-sucrose, [...] encounter Miscellaneous Notes * Telephone Encounter - Jaleesa Sheikh LPN - 05/29/2023 3:50 PM EST Patient was discharged from [facility] to [facility] Will add to Iris Strickland's schedule for 1 week follow up call Jaleesa Sheikh LPN [facility] 05/29/2023,3:50 PM documented in this encounter Plan of Treatment Upcoming Encounters Date Type Department Care Team (Late st Contact Info) Description 06/04/2023 1:00 PM EST Office Visit Orthopaedics [address] [address] Koffi Logan MD 132 [place] [address] 06/08/2023 9:45 AM EST Scheduled Telephone [facility], [facility] [address] [facility] [place] [address] Kristel Strickland, [address] [facility] [place] [address] 09/29/2023 10:30 AM EDT Office Visit Family Medicine [address] [place] [address] [place] [address] 09/29/2023 11:30 AM EDT Office Visit Cardiology [address] [place] [address] Elton Smith PA-C [address] [place] [address] Health Maintenance Due Date Last Done Comments [...] filedocumented as of this encounter Care Teams Staff Nurse Anesthetist Relationship Specialty Start Date End Date Elizabeth Vanegas DO [address] [place] [address] [place] [phone] PCP - General Internal Medicine 08/05/22 documented as of this encounter
--- OUTSIDE RECORDS SUMMARY | 2023-06-13 20:46 | External Medical Summary | Summary of Care ---
Author Name Unknown Organization [facility] Address [address] [facility] [place] [address] Phone [phone] Care Team Providers Care Platform Software Engineer Name Role Phone VanegasPabloElizabeth Tere SCHUMACHER Primary Care Provider [phone] Reason for Visit * Reason Onset Date Comments Med Request 05/26/2023 Encounter Details Date Type Department Care Team (Late st Contact Info) Description 05/26/2023 Telephone Orthopaedics [facility] [address] [place] [address] Koffi Campa MD [address] [place] [address] Med Request Allergies No known active allergiesdocumented as of [...] 69 10/11 Coronary artery disease invo lving [place] coronary artery of [place] heart without angina pectoris 08/10/2018 S/P angioplasty with stent 08/10/2018 History of [place] (myocardial infarction) 08/10/2018 Idiopathic chronic gout of [...] back p ain without sciatica 12/19/2016 10/22/2017 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 Route to [id number] Is there radiological proof(x-ray, cat scan, mri of osteoarthritis? 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 Office Information: Prescriber: koffi campa, documented in this encounter Plan of Treatment Upcoming Encounters Date Type Department Care Team (Late st Contact Info) Description 06/04/2023 1:00 PM EST Office Visit Orthopaedics [address] [place] [address] Koffi Campa MD [address] [place] [address] 09/29/2023 10:30 AM EDT Office Visit Family Medicine [address] [address] [place] [address] 09/29/2023 11:30 AM EDT Office Visit Cardiology [address] [place] [address] Elton Smith PA-C [address] [place] [address] Health Maintenance Due Date Last Done Comments [...] filedocumented as of this encounter Care Teams Platform Software Engineer Relationship Specialty Start Date End Date Elizabeth Vanegas DO [address] [place] [address] [place] [address] PCP - General Internal Medicine 08/05/22 documented as of this encounter
--- OUTSIDE RECORDS SUMMARY | 2023-06-13 20:46 | External Medical Summary | Summary of Care ---
Author Name Unknown Organization [facility] Address [address] [facility] [place] [address] Phone [phone] Care Team Providers Care Radio Aerial Installer Name Role Phone VanegasElizabeth DO Primary Care Provider [phone] Reason for Visit * Reason Onset Date Comments [facility]: Maintenance 06/08/2023 Encounter Details Date Type Department Care Team (Late st Contact Info) Description 06/08/2023 9:45 AM EST Scheduled Telephone [facility], [facility] [address] [facility] [place] [address] [facility] [address] [facility] [place] [address] Allergies No known active allergiesdocumented as of this encounter (statuses as of 06/12/2023) Medications Medication Sig Dispensed Refills Start Date [...] as of this encounter (statuses as of 06/12/2023) Active Problems Problem Noted Date Diagnosed Date [...] 69 10/11 Coronary artery disease invo lving [place] coronary artery of [place] heart without angina pectoris 08/10/2018 S/P angioplasty with stent 08/10/2018 History of [place] (myocardial infarction) 08/10/2018 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 12/19/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 documented as of this encounter (statuses as of 06/12/2023) Resolved Problems Problem Noted Date Diagnosed Date [...] as of this encounter (statuses as of 06/12/2023) Immunizations Name Administration Dates Next Due COVID-19 mRNA, LNP-s, No Pre serve, 2-Dose Series ([employer]izer) 07/10/2020,06/19/2020 COVID-19, LNP-s, No Preserve , Marlon-sucrose, Ages 12+ (Pfizer) 07/23/2021 Covid-19, Mrna, Lnp-s, Pf, B ivalent, 30 Mcg, IM, 12 yrs and above (Colizer) 02/04/2022 Pneumococcal Conjugate Vacc, 13 Valent (Prevnar) [...] encounter Miscellaneous Notes * Telephone Encounter - Kristel Strickland CM - 06/08/2023 9:32 AM EST Call placed to [facility]. Confirmed that patient is still at facility. Transferred to [facility] for Nentia Gunter requesting a call back 06/11 per chart review no dc plans at this time. CW will f/u next week for update Kristel Strickland Watch Inspector [facility] [email or web address] documented in this encounter Plan of Treatment Upcoming Encounters Date Type Department Care Team (Late st Contact Info) Description 06/19/2023 2:30 PM EST Scheduled Telephone [facility], [facility] [address] [facility] [place] [address] Kristel Strickland CM [address] [facility] [place] [address] 09/29/2023 10:30 AM EDT Office Visit Family Medicine [address] [place] [phone] Elizabeth Vaneg[address] [place] [address] 09/29/2023 11:30 AM EDT Office Visit Cardiology [address] [place] [address] Elton Smith PA-C [address] [place] [address] Health Maintenance Due Date Last Done Comments [...] filedocumented as of this encounter Care Teams Radio Aerial Installer Relationship Specialty Start Date End Date Elizabeth Vanegas DO [address] [place] [address] [place] [address] PCP - General Internal Medicine 08/05/22 documented as of this encounter
--- OUTSIDE RECORDS SUMMARY | 2023-06-13 20:46 | External Medical Summary | Summary of Care ---
Author Name Unknown Organization [facility] Address [address] [facility] [place] [address] Phone [phone] Care Team Providers Care Line Maintainer Name Role Phone VanegasElizabeth DO Primary Care Provider Reason for Visit * Reason Onset Date Comments [facility]: Maintenance 06/08/2023 Encounter Details Date Type Department Care Team (Late st Contact Info) Description 06/08/2023 9:45 AM EST Scheduled Telephone [facility], [facility] [address] [facility] [place] [address] [facility] [address] [place] [facility] [place] [address] Allergies No known active allergiesdocumented as of [...] 69 10/11 Coronary artery disease invo lving [place] coronary artery of [place] heart without angina pectoris 08/10/2018 S/P angioplasty with stent 08/10/2018 History of [place] (myocardial infarction) 08/10/2018 Idiopathic chronic gout of [...] back p ain without sciatica 12/19/2016 10/22/2017 [facility] current use of systemic steroids 06/06/2016 03/24/2018 [...] mRNA, LNP-s, No Pre serve, 2-Dose Series ([employer]) 07/10/2020,06/19/2020 COVID-19, LNP-s, No Preserve , Marlon-sucrose, Ages 12+ (Pfizer) 07/23/2021 Covid-19, Mrna, Lnp-s, Pf, B ivalent, 30 Mcg, IM, 12 yrs and above ([employer]) 02/04/2022 Pneumococcal Conjugate Vacc, 13 Valent (Prevnar) [...] 06/08/2023 9:32 AM EST [facility] Conf[facility] that [facility] is [facility] at facility. Transferred to [facility] for Nenita Gunter requesting a call back Incoming call from Nenita at [facility]. Pt was issued a LCD for Thursday which would lead to d/c home Thursday. MD does not feel patient would be safe. Would be AMA. Patient needs 03/11 supervision andfamily can not provide it. Patient went home from facility and returned the same day. Unable to getout of the chair by herself. Explored private pay caregivers. Unable to afford. Explored waiver. Fun ding shortage in [facility] would not be able to start with patient right away. Will make HHreferral to [facility].CW will f/u Thursday for updates Kristel Strickland Aoc Director Intelligence Officer [facility] [email or web address] documented in this encounter Plan of Treatment Upcoming Encounters Date Type Department Care Team (Late st Contact Info) Description 06/15/2023 9:15 AM EST Scheduled Telephone [facility], [facility] [address] [facility] [place] [address] Kristel Strickland CM [address] [place] [address] 06/22/2023 11:20 AM EDT Office Visit Family [address] [phone] Garland Cunningham MD [address] [place] [address] [place] [address] 09/29/2023 10:30 AM EDT Office Visit [address] [place] [phone] Eilzabeth Vanegas DO [address] [place] [address] [place] [address] 09/29/2023 11:30 AM EDT Office Visit Cardiology [address] [place] [address] Elton Smith PA-C [address] [place] [address] Health Maintenance Due Date Last Done Comments [...] filedocumented as of this encounter Care Teams Line Maintainer Relationship Specialty Start Date End Date VanegasElizabeth chavez DO [address] [place] [address] [place] [phone] PCP - General Internal Medicine 08/05/22 documented as of this encounter
--- OUTSIDE RECORDS SUMMARY | 2023-06-13 20:46 | External Medical Summary | Summary of Care ---
Author Name Unknown Organization [facility] Address [address] [place] [address] Phone [phone] Care Team Providers Care Glazing Department Supervisor Name Role Phone Elizabeth Vanegas Primary Care Provider [phone] Reason for Visit * Reason Onset Date Comments [facility]: Engagement 05/27/2023 Encounter Details Date Type Department Care Team (Late st Contact Info) Description 05/27/2023 Telephone [facility], [place] [address] [place], [place] [address] [address] Services, Scheduling [address] [place] [address] [facility]: Engagement Allergies No known active allergiesdocumented as of this encounter (statuses as of 05/27/2023) Medications Medication Sig Dispensed Refills Start Date [...] as of this encounter (statuses as of 05/27/2023) Active Problems Problem Noted Date Diagnosed Date [...] 69 10/11 Coronary artery disease invo lving [place] coronary artery of [place] heart without angina pectoris 08/10/2018 S/P angioplasty with stent 08/10/2018 History of [place] (myocardial infarction) 08/10/2018 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 Mixed dyslipidemia 05/16/2005 7 OSTEOARTHROS NOS-L-LEG 04/18 documented as of this encounter (statuses as of 05/27/2023) Immunizations Name Administration Dates Next Due COVID-19 mRNA, LNP-s, No Pre serve, 2-Dose Series (Loved.la) 07/10/2020,06/19/2020 COVID-19, LNP-s, No Preserve , Marlon-sucrose, Ages 12+ (Pfizer) 07/23/2021 Covid-19, Mrna, Lnp-s, Pf, B ivalent, 30 Mcg, IM, 12 yrs and above (Loved.la) 02/04/2022 Pneumococcal Conjugate Vacc, 13 Valent (Prevnar) [...] encounter Miscellaneous Notes * Telephone Encounter - Abby Penn OSA - 05/27/2023 10:20 AM EST [facility] Enrollment Form Screening: Referral Source: [facility] Primary Reason for Referral (Select most relevant): No data was found Engagement: Engagement Attempt 1: Unable to contact Engagement Attempt 2: No data was found Home Information: No data was found Advance Care Planning (ACP): No data was found Has Living Will or Advance Directive: No data was found Anticipated Sub-Program: Focused Care Management (3-9 months) Confirmation of Sub-Program Type (by care sales team member): No data was found Handoff Information: Current care team notified via: Epic communication Current telemonitoring equipment: No data was found Called and had to lmom but did find the following if she cb with interest 05/28@2 w/L[facility]sky and 06/05@1030 telemed with [facility] documented in this encounter Plan of Treatment Upcoming Encounters Date Type Department Care Team (Late st Contact Info) Description 05/29/2023 9:30 AM EST Scheduled Telephone [facility], [facility] [address] [place] [address] Coordinator, [facility] [address] [place] [address] 06/04/2023 1:00 PM EST Office Visit Orthopaedics [address] [place] [phone] Koffi Logan MD [address] [place] [address] 09/29/2023 10:30 AM EDT Office Visit Family Medicine [address] [place] [address] Elizabeth Vanegas [address] [place] [address] 09/29/2023 11:30 AM EDT Office Visit Cardiology [address] [place] [address] Elton Smith PA-C [address] [place] [address] Health Maintenance Due Date Last Done Comments [...] filedocumented as of this encounter Care Teams Glazing Department Supervisor Relationship Specialty Start Date End Date Elizabeth Vanegas DO [address] [place] [address] [place] [address] PCP - General Internal Medicine 08/05/22 documented as of this encounter
--- OUTSIDE RECORDS SUMMARY | 2023-06-13 20:46 | External Medical Summary | Summary of Care ---
Author Name Unknown Organization [facility] [address] [facility] [place] [address] Phone [phone] Care Team Providers Care Nitric Acid Plant Operator Name Role Phone Elizabeth Vanegas DO Primary Care Provider [phone] Reason for Visit * Reason Onset Date Comments [facility]: Maintenance 06/08/2023 Encounter Details Date Type Department Care Team (Late st Contact Info) Description 06/08/2023 9:45 AM EST Scheduled Telephone [facility], [facility] [address] [facility] [place] [address] Kristel Strickland, [address] [facility] [place] [id number] Allergies No known active allergiesdocumented as of this encounter (statuses as of 06/08/2023) Medications Medication Sig Dispensed Refills Start Date [...] as of this encounter (statuses as of 06/08/2023) Active Problems Problem Noted Date Diagnosed Date [...] 69 10/11 Coronary artery disease invo lving [place] coronary artery of [place] heart without angina pectoris 08/10/2018 S/P angioplasty with stent 08/10/2018 History of [place] (myocardial infarction) 08/10/2018 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 Mixed dyslipidemia 05/16/2005 7 OSTEOARTHROS NOS-L-LEG 04/18 documented as of this encounter (statuses as of 06/08/2023) Immunizations Name Administration Dates Next Due COVID-19 mRNA, LNP-s, No Pre serve, 2-Dose Series (ToolWire) 07/10/2020,06/19/2020 COVID-19, LNP-s, No Preserve , Marlon-sucrose, [...] 06/08/2023 9:32 AM EST [facility]. Transferred to [facility] for Nenita Gunter requesting a call back Kristel Strickland Mis Manager [facility] [email or web address] documented in this encounter Plan of Treatment Upcoming Encounters Date Type Department Care Team (Late st Contact Info) Description 09/29/2023 10:30 AM EDT Office Visit Family Medicine [address] [place] [phone] Elizabeth Vanegas[address] [place] [address] 09/29/2023 11:30 AM EDT Office Visit Cardiology [address] [place] [address] Elton Smith PA-C [address] [place] [address] Health Maintenance Due Date Last Done Comments [...] filedocumented as of this encounter Care Teams Nitric Acid Plant Operator Relationship Specialty Start Date End Date Elizabeth Vanegas DO [address] [place] [address] [place] [address] PCP - General Internal Medicine 08/05/22 documented as of this encounter
--- OUTSIDE RECORDS SUMMARY | 2023-06-13 20:46 | External Medical Summary | Summary of Care ---
Author Name Unknown Organization [facility] [address] [facility] [place] [address] Phone [phone] Care Team Providers Care Tobacco Grower Name Role Phone Elizabeth Vanegas DO Primary Care Provider [phone] Reason for Visit * Reason Onset Date Comments [facility]: Screening 05/25/2023 Encounter Details Date Type Department Care Team (Late st Contact Info) Description 05/25/2023 Telephone [facility], [facility] [address] [facility] [place] [address] [facility], Nurse [facility] [address] [place] [address] [facility]: Screening Allergies No known active allergiesdocumented as of this encounter (statuses as of 05/25/2023) Medications Medication Sig Dispensed Refills Start Date [...] as of this encounter (statuses as of 05/25/2023) Active Problems Problem Noted Date Diagnosed Date [...] 69 10/11 Coronary artery disease invo lving [place] coronary artery of [place] heart without angina pectoris 08/10/2018 S/P angioplasty with stent 08/10/2018 History of [place] (myocardial infarction) 08/10/2018 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 Mixed dyslipidemia 05/16/2005 7 OSTEOARTHROS NOS-L-LEG 04/18 documented as of this encounter (statuses as of 05/25/2023) Immunizations Name Administration Dates Next Due COVID-19 mRNA, LNP-s, No Pre serve, 2-Dose Series (Self Point) 07/10/2020,06/19/2020 COVID-19, LNP-s, No Preserve , Marlon-sucrose, [...] encounter Miscellaneous Notes * Telephone Encounter - Katherni Lawton LPN - 05/25/2023 4:09 PM EST Sent to Fire Extinguisher Mechanic Akiko Cornell for review for renroll for [facility] Diana Chandler was referred as a potential candidate for enrollment for [facility]. A review of this chart was completed and: OPCM Whit Mcqueen referring documented in this encounter Plan of Treatment Upcoming Encounters Date Type Department Care Team (Late st Contact Info) Description 06/04/2023 1:00 PM EST Office Visit Orthopaedics [address] [place] [address] Koffi Logan MD [address] [place] [address] 09/29/2023 10:30 AM EDT Office Visit Family Medicine [address] [place] [address] [place] [address] 09/29/2023 11:30 AM EDT Office Visit Cardiology [address] [place] [address] Elton Smith PA-C [address] [place] [address] Health Maintenance Due Date Last Done Comments Depression Screening 08/01/2021 08/01/2020 COVID-19 Vaccine ( season) 2022 02/04/2022, 07/23/2021, 07/10/2020, Additional history exists DXA Scan 07/31/2023 07/30/2016, 0 08/2005, 04/20/2003, Additional history exists GFR 02/18/2024 [...] filedocumented as of this encounter Care Teams Tobacco Grower Relationship Specialty Start Date End Date Elizabeth Vanegas DO [address] [place] [address] [place] [id number] PCP - General Internal Medicine 08/05/22 documented as of this encounter
--- OUTSIDE RECORDS SUMMARY | 2023-06-13 20:46 | External Medical Summary | Summary of Care ---
Author Name Unknown Organization [facility] Address [address] [facility] [place] [address] Phone [phone] Care Team Providers Care Stencil Typist Name Role Phone VanegasPabloElizabeth Tere SCHUMACHER Primary Care Provider [phone] Reason for Visit * Reason Onset Date Comments Med Request 05/26/2023 Encounter Details Date Type Department Care Team (Late st Contact Info) Description 05/26/2023 Telephone Orthopaedics [facility] [address] [place] [address] Koffi Campa MD [address] [place] [address] Med Request Allergies No known active allergiesdocumented [...] 69 10/11 Coronary artery disease invo lving [place] coronary artery of [place] heart without angina pectoris 08/10/2018 S/P [...] mRNA, LNP-s, No Pre serve, 2-Dose Series ([employer] Resources) 07/10/2020,06/19/2020 COVID-19, LNP-s, No Preserve , Marlon-sucrose, Ages 12+ (Pfizer) 07/23/2021 Covid-19, Mrna, Lnp-s, Pf, B ivalent, 30 Mcg, IM, 12 yrs and above ([employer] Records & Resources) 02/04/2022 Pneumococcal Conjugate Vacc, 13 Valent (Prevnar) [...] encounter Miscellaneous Notes * Telephone Encounter - Josee Banks OSA - 05/27/2023 6:01 AM EST SEE REFERRAL MESSAGE * Telephone Encounter - Nicole Veronica MED ASSIST - 05/26/2023 1:31 PM EST Orthopaedics Pre-Cert Request Medication/Disease State Information: Medication: Hyaluronate- Durolane ([id number]): inject 60mg (3 mL) once. Route to [id number] Is there radiological proof(x-ray, cat scan, mri [...] 1:00 PM EST Office Visit Orthopaedics [address] [phone] Koffi Campa MD [address] [facility] [place] [address] 09/29/2023 10:30 AM EDT Office Visit Family Medicine [address] [phone] Elizabeth Vanegas[address] [place] [address] 09/29/2023 11:30 AM EDT Office Visit Cardiology [address] [place] [address] Elton Jasmine PA-C [address] [place] [address] Health Maintenance Due Date Last Done Comments [...] filedocumented as of this encounter Care Teams Stencil Typist Relationship Specialty Start Date End Date Elizabeth Vanegas DO [address] [place] [address] [place] [address] PCP - General Internal Medicine 08/05/22 documented as of this encounter
--- OUTSIDE RECORDS SUMMARY | 2023-06-13 20:46 | External Medical Summary | Summary of Care ---
Author Name Unknown Organization [facility] Address [address] [place] [address] Phone [phone] Care Team Providers Care Bean Sprout Grower Name Role Phone Elizabeth Vanegas DO Primary Care Provider [phone] Reason for Visit * Reason Onset Date Comments Appointment 05/29/2023 Encounter Details Date Type Department Care Team (Late st Contact Info) Description 05/29/2023 Telephone [facility], [facility] [address] [facility] [place] [address] Services, Scheduling [address] [place] [address] Appointment (/) Allergies No known active allergiesdocumented as [...] 69 10/11 Coronary artery disease invo lving [place] coronary artery of [place] heart without angina pectoris 08/10/2018 S/P angioplasty [...] back p ain without sciatica 12/19/2016 10/22/2017 penitentiary current use of systemic steroids 06/06/2016 03/24/2018 [...] mRNA, LNP-s, No Pre serve, 2-Dose Series ([email or web address]) 07/10/2020,06/19/2020 COVID-19, LNP-s, No Preserve , Marlon-sucrose, Ages 12+ (Pfizer) 07/23/2021 Covid-19, Mrna, Lnp-s, Pf, B ivalent, 30 Mcg, IM, 12 yrs and above ([email or web address]) 02/04/2022 Pneumococcal Conjugate Vacc, 13 Valent (Prevnar) 07/18/2016 Pneumococcal Polysaccharide PPV23 (Pneumovax) 04/11/2015,08/04/2014,05/23/2005 Seasonal Influenza Intranasal 02/17/2014 Seasonal Influenza Virus Vac cine, Unspecified Formulation 01/25/2018,01/23/2017 Seasonal Influenza, PF, 6 M & above, IM , (FluLaval or Fluzone) 01/10/2019,01/25/2018,01/23/2017 Seasonal Influenza, Quadriva lent Hd (Fluzone Hd) 02/17/2023,02/04/2022,01/08/2021 Seasonal Influenza, Quadriva lent Hd, 65+ Yrs 01/12/2020 Seasonal Influenza, Split, I IV3, With Preserve, Inj 01/15/2016,03/07/2015,01/25/2013,02/13 /2007 Seasonal Influenza, Trivalen t, High Dose, No [...] encounter Miscellaneous Notes * Telephone Encounter - Shaniqua Pozo OSA - 05/29/2023 8:50 AM EST [facility] Engagement Attempt Engagement: Engagement Attempt 1: Unable to contact Engagement Attempt 2: Unable to contact Engagement Attempt 3: No data was found Home Information: No data was found Advance Care Planning (ACP): No data was found Has Living Will or Advance Directive: No data was found Anticipated Sub-Program: Focused Care Management (3-9 months) Confirmation of Sub-Program Type (by care cafe team member): No data was found Handoff Information: Current care team notified via: Epic communication Current telemonitoring equipment: No data was found Called lmom for call back: Darek: 06/02 at 12:30pm David/Jovon: 06/05 at 10:30am documented in this encounter Plan of Treatment Upcoming Encounters Date Type Department Care Team (Late st Contact Info) Description 05/29/2023 9:30 AM EST Scheduled Telephone [facility], [facility] [address] [place] [address] Coordinator, [facility] [address] [place] [address] 06/03/2023 10:15 AM EST Scheduled Telephone [facility], [facility] [address] [place] [address] Coordinator, [facility] [address] [place] [address] 06/04/2023 1:00 PM EST Office Visit Orthopaedics [address] [place] [phone] Koffi Logan MD [address] [place] [address] 09/29/2023 10:30 AM EDT Office Visit Family Medicine [address] [phone] Elizabeth Vanegas DO [address] [place] [address] [place] [address] 09/29/2023 11:30 AM EDT Office Visit Cardiology [address] [place] [address] Elton Smith PA-C [address] [place] [address] Health Maintenance Due Date Last Done Comments [...] filedocumented as of this encounter Care Teams Bean Sprout Grower Relationship Specialty Start Date End Date Elizabeth Vanegas DO [address] [place] [address] [place] [address] PCP - General Internal Medicine 08/05/22 documented as of this encounter
--- OUTSIDE RECORDS SUMMARY | 2023-06-13 20:46 | External Medical Summary | Summary of Care ---
Author Name Unknown Organization [facility] Address [address] [facility] [place] [address] Phone [phone] Care Team Providers Care Green Marketer Name Role Phone Elizabeth Vanegas DO Primary Care Provider [phone] Reason for Visit * Reason Onset Date Comments Advice 06/10/2023 Assistance out o f home Encounter Details Date Type Department Care Team (Late st Contact Info) Description 06/10/2023 Telephone Family Medicine [address] [place] [address] Elizabeth Vanegas DO [address] [place] [address] [place] [address] Advice (Assistance out of home) Allergies No known active allergiesdocumented as of this encounter (statuses as of 06/10/2023) Medications Medication Sig Dispensed Refills Start Date [...] as of this encounter (statuses as of 06/10/2023) Active Problems Problem Noted Date Diagnosed Date [...] 70 10/11 Coronary artery disease invo lving [place] coronary artery of [place] heart without angina pectoris 08/10/2018 S/P angioplasty with stent 08/10/2018 History of [place] (myocardial infarction) 08/10/2018 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 12/19/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 documented as of this encounter (statuses as of 06/10/2023) Resolved Problems Problem Noted Date Diagnosed Date [...] as of this encounter (statuses as of 06/10/2023) Immunizations Name Administration Dates Next Due COVID-19 mRNA, LNP-s, No Pre serve, 2-Dose Series (Indian[employer]s) 07/10/2020,06/19/2020 COVID-19, LNP-s, No Preserve , Marlon-sucrose, [...] Telephone Encounter - Gin Chaney RN - 06/10/2023 2:55 PM EST She will have to speak with the doctors there * Telephone Encounter - Sheldon Vogt OSA - 06/10/2023 2:27 PM EST Patient is currently at [facility] in [place]. Patient would like out of the facility. Is seeking a call from Dr. Vanegas to talk about getting her released from [facility]. She says the case worker cannot help, only her physician can. documented in this encounter Plan of Treatment Upcoming Encounters Date Type Department Care Team (Late st Contact Info) Description 09/29/2023 10:30 AM EDT Office Visit Family Medicine [address] [place] [address] [address] [place] [address] 09/29/2023 11:30 AM EDT Office Visit Cardiology [address] [place] [address] Elton Smith PA-C [address] [place] [address] Health Maintenance Due Date Last Done Comments [...] filedocumented as of this encounter Care Teams Green Marketer Relationship Specialty Start Date End Date Elizabeth Vanegas DO [address] [place] [address] [place] [address] PCP - General Internal Medicine 08/05/22 documented as of this encounter
--- OUTSIDE RECORDS SUMMARY | 2023-06-13 20:46 | External Medical Summary | Summary of Care ---
Author Name Unknown Organization [facility] Address [address] [facility] [place] [address] Phone [phone] Care Team Providers Care Netezza Architect Name Role Phone Elizabeth Vanegas DO Primary Care Provider [phone] Encounter Details Date Type Department Care Team (Late st Contact Info) Description 05/25/2023 Orders Only Family Medicine [address] [address] Elizabeth Vanegas [address] [place] [address] Allergies No known active allergiesdocumented as of [...] 69 10/11 Coronary artery disease invo lving [place] coronary artery of [place] heart without angina pectoris 08/10/2018 S/P angioplasty [...] mRNA, LNP-s, No Pre serve, 2-Dose Series (GenJuice) 07/10/2020,06/19/2020 COVID-19, LNP-s, No Preserve , Marlon-sucrose, [...] Team (Late st Contact Info) Description 05/27/2023 11:50 AM EST Office Visit [address] [address] [address]eg[address] [place] [address] 06/04/2023 1:00 PM EST Office Visit Orthopaedics [address] [place] [phone] Koffi Logan MD [address] [place] [address] 09/29/2023 10:30 AM EDT Office Visit Family Medicine [address] [place] [phone] Elizabeth Vanegas[address] [place] [address] 09/29/2023 11:30 AM EDT Office Visit Cardiology [address] [place] [address] Elton Smith PA-C [address] [place] [address] Health Maintenance Due Date Last Done Comments [...] Name Priority Date/Time Associated Diagnosis Comments OUTSIDE LAB-CORONAVIRUS (COVID-19) Routine 05/23/2023 documented in this encounter Results * OUTSIDE LAB-CORONAVIRUS (COVID-19) (05/23/2023) [id number] E LAB NEGATIVE NEGATIVE OUTSIDE LAB (SEE SCANNED REPORT) 05/23/2023 History Per Patient LABORATORY OUTSIDE LAB (SEE SCANNED REPORT) documented in this encounter Care Teams Netezza Architect Relationship Specialty Start Date End Date Elizabeth Vanegas DO [address] [place] [address] [place] [phone] PCP - General Internal Medicine 08/05/22 documented as of this encounter
[2023-06-13] MEDS: cefTRIAXone SODIUM 2,000 MG/50 ML BAG IV STA (22:27)
--- NOTE | 2023-06-14 00:04 | History & Physical Report ---
Date of Service June 13, 2023 Assessment & Plan (1) Generalized weakness: Plan: 82-year-old female with past medical history significant for idiopathic chronic gout, hyperlipidemia, hypothyroidism, history of CAD s/p stent, hypertension, diastolic dysfunction, GERD, history of dysphagia, history of inclusion body myositis, osteoarthritis, chronic inflammatory demyelinating polyneuritis, who was recently in the hospital for ambulatory dysfunction and was sent to rehab and seems patient signed out from the rehab today and called her neighbors to get her home but when she went home her daughter does not want to let her come back home so she was brought to the ER and she was also found to have UTI. Patient is very tearful. Patient states she called her neighbor to take her home. When they went to home daughter and her were standing outside the house and seems they were mad that she came back home. Currently the house is under her daughter's name. Patient wants to go home. She says she did not see her grandkids for some time now. She lost her other daughter recently. She also lost her . Currently she has nowhere to go. Denies any other complaints. No headache. No runny nose or sore throat. No cough. No fevers. Appetite is down. No chest pain or shortness of breath. No nausea. No abdominal pain. Normal bowel and bladder movements. Hemodynamics are okay. Patient states she has myositis and she has difficulty getting up from the chair but when she gets up she can ambulate okay. She says she arranged help at home but her daughter does not want her to come back home. 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 Chronic diastolic CHF Monitor for volume overload History of CAD s/p stent On aspirin, statin and beta-laurie GERD On Protonix Gout Allopurinol Hypertension On amlodipine and metoprolol Will monitor 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 On Synthyroid DVT prophylaxis Heparin subcu Disposition Medical floor Social service to help with discharge planning Full code History of Present Illness Chief Complaint: Weakness Primary Care Provider: Elizabeth Vanegas DO 82-year-old female with past medical history significant for idiopathic chronic gout, hyperlipidemia, hypothyroidism, history of CAD s/p stent, hypertension, diastolic dysfunction, GERD, history of dysphagia, history of inclusion body myositis, osteoarthritis, chronic inflammatory demyelinating polyneuritis, who was recently in the hospital for ambulatory dysfunction and was sent to rehab and seems patient signed out from the rehab today and called her neighbors to get her home but when she went home her daughter does not want to let her come back home so she was brought to the ER and she was also found to have UTI. Patient is very tearful. Patient states she called her neighbor to take her home. When they went to home daughter and her were standing outside the house and seems they were mad that she came back home. Currently the house is under her daughter's name. Patient wants to go home. She says she did not see her grandkids for some time now. She lost her other daughter recently. She also lost her . Currently she has nowhere to go. Denies any other complaints. No headache. No runny nose or sore throat. No cough. No fevers. Appetite is down. No chest pain or shortness of breath. No nausea. No abdominal pain. Normal bowel and bladder movements. Hemodynamics are okay. Patient states she has myositis and she has difficulty getting up from the chair but when she gets up she can ambulate okay.She says she arranged help at home but her daughter does not want her to come back home. Past medical history. As mentioned above Past surgical history. Muscle biopsy. Ligation of oviducts. Sigmoidoscopy. Total hysterectomy. Social history. No smoking. No alcohol use. No drug use. Family history. Mother of MA at age of 88. Father had emphysema. Allergies Allergy/AdvReac Type Severity Reaction Status Date / Time lemon Allergy Verified 05/28/23 08:46 orange Allergy Verified 05/28/23 08:46 Cloud And Derivatives AdvReac Hives Verified 05/27/23 08:20 Home Medications Medication Instructions Recorded Confirmed Type acetaminophen 500 mg tablet 500 mg PO QID PRN Pain #30 tabs 05/28/23 06/13/23 Rx (Tylenol Extra Strength) allopurinol 100 mg tablet 100 mg PO QAM #30 tabs 05/28/23 06/13/23 Rx amlodipine 5 mg tablet (Norvasc) 5 mg PO QAM #30 tabs 05/28/23 06/13/23 Rx aspirin 81 mg tablet,delayed 81 mg PO QAM #30 tabs 05/28/23 06/13/23 Rx release (Ecotrin Low Strength) atorvastatin 40 mg tablet 40 mg PO HS #90 tabs 05/28/23 06/13/23 Rx cholecalciferol (vitamin D3) 25 2,000 unit PO DAILY #30 tabs 05/28/23 06/13/23 Rx mcg (1,000 unit) tablet (Vitamin D3) cyanocobalamin (vitamin B-12) 1,000 mcg IM MONTHLY #10 mL 05/28/23 06/13/23 Rx 1,000 mcg/mL injection solution diclofenac sodium 1 % topical gel 2 g topical DIRECTED PRN Pain 05/28/23 06/13/23 Rx #100 grams duloxetine 30 mg capsule,delayed 30 mg PO HS #30 caps 05/28/23 06/13/23 Rx release (Cymbalta) ferrous sulfate 325 mg (65 mg 325 mg PO QAM #30 tabs 05/28/23 06/13/23 Rx iron) tablet gabapentin 600 mg tablet 600 mg PO TID #90 tabs 05/28/23 06/13/23 Rx (Neurontin) hydrocortisone 2.5 % topical cream 1 applic topical DIRECTED PRN 05/28/23 06/13/23 Rx with perineal applicator Hemorrhoids #30 grams levothyroxine 88 mcg tablet 88 mcg PO 6XWK #60 tabs 05/28/23 06/13/23 Rx metoprolol succinate 25 mg 25 mg PO DAILY #30 tabs 05/28/23 06/13/23 Rx tablet,extended release 24 hr pantoprazole 20 mg tablet,delayed 20 mg PO QAM #30 tabs 05/28/23 06/13/23 Rx release prednisone 5 mg tablet 5 mg PO DAILY #30 tabs 05/28/23 06/13/23 Rx Past Med/Surg History Medical History Encounter for pre-operative examination History of MA (myocardial infarction) Coronary artery disease CHF (congestive heart failure) Severe sepsis Inflammatory arthritis Gout Inclusion body myositis 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 HLD (hyperlipidemia) Neuropathy Surgical History S/P cardiac cath History of hysterectomy Family History Other Coronary heart disease Social History Smoking Status: Never smoker Second Hand Exposure: No; Do You Dip or Chew Tobacco: No; Hx Alcohol Use: No Hx Substance Use: No Preferred Language: Uzbek Communication Ability: Effective Bias Cutter Required: No Beliefs That Will Affect Care: None Current Living Situation: Alone Current Living Situation Comment: See ED CM note from 06/12 Feels Safe at Home: Yes Safety Concerns: Feels Safe At This Time Assistive Devices: Glasses, Hospital Bed and Walker Review of Systems Review of Systems: All systems reviewed & are unremarkable except as noted in HPI & below Physical Exam Physical Exam: General- Not in acute distress Head- atraumatic Eyes- PERRL. ENT- oropharynx clear Neck- supple, no JVD. Lungs- clear to auscultation no wheezing or crackles. Heart- regular rhythm; no murmur, no gallop. Abdomen- normal bowel sounds, soft, nontender, no distension Extremities- b/l lower extremity edema present. no erythema seen. Neuro- alert, oriented x 3; PERRL, no facial palsy; no dysarthria; moves extremities. Results & Data Results & Data Vital Signs (Past 12 Hours) Vital Signs Temp Pulse Pulse Resp BP BP Pulse Ox 06/13/23 23:00 64 19 93 06/13/23 23:00 172/84 H 06/13/23 22:52 58 L 18 147/91 H 96 06/13/23 22:00 147/91 H 06/13/23 22:00 57 L 17 97 06/13/23 21:00 62 18 162/82 H 97 06/13/23 19:53 57 L 06/13/23 19:14 56 L 18 175/83 H 94 06/13/23 17:24 36.6 C 64 18 181/93 H 97 O2 Del Method 06/13/23 23:00 06/13/23 23:00 06/13/23 22:52 Room Air 06/13/23 22:00 06/13/23 22:00 06/13/23 21:00 Room Air 06/13/23 19:53 06/13/23 19:14 Room Air 06/13/23 17:24 Room Air Diagnostic Findings Laboratory Results WBC 12.39 K/ul (4.8-10.8) H 06/13/23 Unknown RBC 3.84 M/uL (4.20-5.40) L 06/13/23 Unknown Hgb 12.5 g/dl (12.0-16.0) 06/13/23 Unknown Hct 38.4 % (37.0-47.0) 06/13/23 Unknown MCV 100.0 fL (80.0-100.0) 06/13/23 Unknown MCH 32.6 pg (25.0-34.0) 06/13/23 Unknown MCHC 32.6 g/dL (32.0-36.0) 06/13/23 Unknown RDW Std Deviation 54.0 fL (36.4-46.3) H 06/13/23 Unknown RDW Coeff of Danya 14.8 % (11.5-14.5) H 06/13/23 Unknown Plt Count 360 K/uL (130-400) 06/13/23 Unknown MPV 10.2 fL (9.4-12.4) 06/13/23 Unknown Immature Gran % (Auto) 0.4 % 06/13/23 Unknown Neut % (Auto) 68.3 % 06/13/23 Unknown Lymph % (Auto) 21.7 % 06/13/23 Unknown Eagle % (Auto) 6.6 % 06/13/23 Unknown Eos % (Auto) 2.3 % 06/13/23 Unknown Baso % (Auto) 0.7 % 06/13/23 Unknown Neut # (Auto) 8.46 K/uL (1.40-6.50) H 06/13/23 Unknown Lymph # (Auto) 2.69 K/uL (1.20-3.40) 06/13/23 Unknown Eagle # (Auto) 0.82 K/uL (0.11-0.59) H 06/13/23 Unknown Eos # (Auto) 0.28 K/uL (0.00-0.50) 06/13/23 Unknown Baso # (Auto) 0.09 K/uL (0.00-0.20) 06/13/23 Unknown Immature Gran # (Auto) 0.05 K/uL (0.01-0.20) 06/13/23 Unknown Sodium 142 mmol/L (136-145) 06/13/23 Unknown Potassium 3.9 mmol/L (3.5-5.1) 06/13/23 Unknown Chloride 110 mmol/L (98-107) H 06/13/23 Unknown Carbon Dioxide 22 mmol/L (21-32) 06/13/23 Unknown Anion Gap 10 (3-11) 06/13/23 Unknown BUN 19 mg/dl (6-23) 06/13/23 Unknown Creatinine 0.58 mg/dl (0.6-1.2) L 06/13/23 Unknown Est Cr Clr Drug Dosing Not Reportable 06/13/23 Unknown Est GFR ( Amer) 98.8 ml/min 06/13/23 Unknown Est GFR (Non-Af Amer) 85.2 ml/min 06/13/23 Unknown BUN/Creatinine Ratio 32.8 (10-20) H 06/13/23 Unknown Glucose 119 mg/dl (70-99(Fasting)) H 06/13/23 Unknown Calcium 9.2 mg/dl (8.6-10.3) 06/13/23 Unknown Total Bilirubin 0.3 mg/dl (0.2-1.0) 06/13/23 Unknown AST 13 U/L (13-39) 06/13/23 Unknown ALT 10 U/L (7-52) 06/13/23 Unknown Alkaline Phosphatase 104 U/L (34-104) 06/13/23 Unknown Total Protein 7.0 gm/dl (6.0-8.3) 06/13/23 Unknown Albumin 4.0 gm/dl (3.4-5.0) 06/13/23 Unknown Globulin 3.0 gm/dl (2.5-4.0) 06/13/23 Unknown Albumin/Globulin Ratio 1.3 (0.9-2) 06/13/23 Unknown TSH 0.747 uIu/ml (0.300-4.500) 06/13/23 Unknown Urine Color Yellow 06/13/23 Unknown Urine Appearance Cloudy (Clear) A 06/13/23 Unknown Urine pH 5.0 (4.5-7.5) 06/13/23 Unknown Ur Specific [place] 1.032 (1.000-1.030) H 06/13/23 Unknown Urine Protein Trace (Negative) H 06/13/23 Unknown Urine Glucose (UA) Negative (Negative) 06/13/23 Unknown Urine Ketones Trace (Negative) H 06/13/23 Unknown Urine Blood Negative (Negative) 06/13/23 Unknown Urine Nitrite Negative (Negative) 06/13/23 Unknown Urine Bilirubin Negative (Negative) 06/13/23 Unknown Urine Urobilinogen Negative (Negative) 06/13/23 Unknown Ur Leukocyte Esterase 2+ (Negative) H 06/13/23 Unknown Urine WBC (Auto) >30 /hpf (0-5) H 06/13/23 Unknown Urine RBC (Auto) 0-4 /hpf (0-4) 06/13/23 Unknown U Hyaline Cast (Auto) 1-5 /lpf (0-5) 06/13/23 Unknown U Epithel Cells (Auto) >30 /lpf (0-5) H 06/13/23 Unknown Urine Bacteria (Auto) 1+ (Negative) H 06/13/23 Unknown Salicylates < 3.0 mg/dl (3.0-30) L 06/13/23 Unknown Urine Opiates Screen Neg (Neg) 06/13/23 Unknown Ur Methadone, Qual Neg (Neg) 06/13/23 Unknown Acetaminophen 9 ug/ml (10-30) L 06/13/23 Unknown Urine Barbiturates Neg (Neg) 06/13/23 Unknown Ur Phencyclidine (PCP) Neg (Neg) 06/13/23 Unknown U Amphetamin/Meth Scrn Neg (Neg) 06/13/23 Unknown MDMA (Ecstasy) Screen Neg (Neg) 06/13/23 Unknown U Benzodiazepines Scrn Neg (Neg) 06/13/23 Unknown Ur Cocaine Metabolite Neg (Neg) 06/13/23 Unknown U Marijuana (THC) Screen Neg (Neg) 06/13/23 Unknown Ethyl Alcohol mg/dL < 10.0 mg/dl (<10.0) 06/13/23 18:27 SARS-CoV-2, RNA, NAAT NEGATIVE (NEGATIVE) 06/13/23 Unknown Code Status & VTE Plan VTE Prophylaxis Plan VTE Prophylaxis will be ordered: Yes
[2023-06-14] MEDS: ACETAMINOPHEN 325 MG TAB PO PRN (02:54)
[2023-06-14] MEDS: LEVOTHYROXINE SODIUM 88 MCG TABLET PO SCH (05:29)
[2023-06-14 06:42] LABS: Anion Gap 9 (3-11); Calcium 8.7 mg/dl (8.6-10.3); Carbon Dioxide 22 mmol/L (21-32); Chloride 110 mmol/L (98-107); Magnesium 1.7 mg/dl (1.7-2.4); Potassium 3.5 mmol/L (3.5-5.1); Sodium 141 mmol/L (136-145)
[2023-06-14 06:49] LABS: Basophils # (auto) 0.09 K/uL (0.00-0.20); Basophils % (auto) 0.8 %; Eosinophils # (auto) 0.39 K/uL (0.00-0.50); Eosinophils % (auto) 3.4 %; Hematocrit (blood only) 39.5 % (37.0-47.0); Hemoglobin 12.8 g/dl (12.0-16.0); Immature Granulocytes # (auto) 0.07 K/uL (0.01-0.20); Immature Granulocytes % (auto) 0.6 %; Lymphocytes # (auto) 3.07 K/uL (1.20-3.40); Lymphocytes % (auto) 26.6 %; Mean Corpuscular Hemoglobin 32.2 pg (25.0-34.0); Mean Corpuscular Hgb Conc 32.4 g/dL (32.0-36.0); Mean Corpuscular Volume 99.5 fL (80.0-100.0); Mean Platelet Volume 10.5 fL (9.4-12.4); Monocytes # (auto) 0.89 K/uL (0.11-0.59); Monocytes % (auto) 7.7 %; Neutrophils # (auto) 7.01 K/uL (1.40-6.50); Neutrophils % (auto) 60.9 %; Platelet Count 337 K/uL (130-400); RDW Coefficient of Variation 14.6 % (11.5-14.5); RDW Standard Deviation 53.3 fL (36.4-46.3); Red Blood Count 3.97 M/uL (4.20-5.40); White Blood Count 11.52 K/ul (4.8-10.8)
[2023-06-14 07:04] LABS: Creatinine Clr Calc Pharmacy 88.9 ml/min; Est GFR (African American) 109.9 ml/min; Est GFR (Non-African American) 94.8 ml/min
[2023-06-14] MEDS: METOPROLOL SUCC 25MG EXT REL TAB PO SCH (08:17)
[2023-06-14] MEDS: allopurinoL 100 MG TAB PO SCH (08:26)
[2023-06-14] MEDS: CHOLECALCIFEROL 25 MCG (1000 UNITS) TAB PO SCH (08:26)
[2023-06-14] MEDS: amLODIPine BESYLATE 5 MG TAB PO SCH (08:26)
[2023-06-14] MEDS: ASPIRIN 81 MG ECTAB PO SCH (08:26)
[2023-06-14] MEDS: GABAPENTIN 600 MG TAB PO SCH (08:26)
[2023-06-14] MEDS: PANTOprazole 40 MG TAB PO SCH (08:26)
[2023-06-14] MEDS: FERROUS SULFATE 325 MG TAB PO SCH (08:26)
[2023-06-14] MEDS: HEPARIN SOD 5,000 UNIT/0.5 ML VIAL SQ SCH (08:27)
[2023-06-14] MEDS: predniSONE 5 MG TAB PO SCH (08:27)
--- NOTE | 2023-06-14 14:04 | Hospitalist Progress Note ---
Date of Service June 14, 2023 Assessment & Plan (1) Generalized weakness: Plan: 82-year-old female with past medical history significant for idiopathic chronic gout, hyperlipidemia, hypothyroidism, history of CAD s/p stent, hypertension, diastolic dysfunction, GERD, history of dysphagia, history of inclusion body myositis, osteoarthritis, chronic inflammatory demyelinating polyneuritis, who was recently in the hospital for ambulatory dysfunction and was sent to rehab. Reportedly, patient signed out AMA from the rehab and went home. She reports that her daughter did not want her to be home. She was then brought to the hospital. Generalized weakness weakness UTI History of chronic inflammatory demyelinating polyneuritis and inclusion body myositis Patient recently signed out AMA from the rehab; unable to get inside her home. 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 It may contain grammatical, syntax or spelling errors. Any formal questions or concerns about the content, text or information contained within the body of this dictation should be directly addressed to the provider for clarification Admission and Anticipated Discharge Date Admission Date: June 13, 2023 Subjective Patient seen and examined at bedside. She is comfortable; not in distress. Vital signs are stable; no overnight events Review of Systems Review of Systems: All systems reviewed & are unremarkable except as noted in Subjective Physical Exam Physical Exam: General- oriented x 3, not in distress, speaks in sentences with no effort or accessory muscle use Lungs- clear breath sounds bilaterally, no crackles or wheezes, no rhonchi Heart- normal rate, regular rhythm; no murmurs Abdomen- normal bowel sounds, nondistended, soft, nontender Extremities- no pretibial edema, no calf tenderness Neuro- alert, oriented x 3; no gross focal neurologic deficits Skin- warm & dry Results & Data Results & Data Vital Signs (Past 12 Hours) Vital Signs Temp Pulse Resp BP Pulse Ox O2 Del Method 06/14/23 07:56 36.6 C 59 L 16 146/80 H 95 Room Air
--- NOTE | 2023-06-14 14:11 | Communication Note ---
Date of Service: June 14, 2023 consult received, chart reviewed. No psych hx. Family conflict over decision to leave rehab AMA. Attempted to see patient twice this am but she was sleeping and had been irritable when awakened earlier per staff. Must be alert for liaison to do accurate MoCA as capacity consult is requested. Capacity consults also typically involve collateral hx, she is reportedly not allowing communication with daughter/POA at this time but told liaison could speak with granddaughter.
[2023-06-14] MEDS: DULoxetine HCL 30 MG CAP PO SCH (20:19)
[2023-06-14] MEDS: ATORVASTATIN 40 MG TAB PO SCH (20:19)
[2023-06-14] MEDS: cefTRIAXone SODIUM 2,000 MG in DEXTROSE 5 % MINI-B 50 ML IV SCH (23:08)
--- NOTE | 2023-06-15 13:24 | Hospitalist Progress Note ---
Date of Service June 15, 2023 Assessment & Plan (1) Generalized weakness: Plan: 82-year-old female with past medical history significant for idiopathic chronic gout, hyperlipidemia, hypothyroidism, history of CAD s/p stent, hypertension, diastolic dysfunction, GERD, history of dysphagia, history of inclusion body myositis, osteoarthritis, chronic inflammatory demyelinating polyneuritis, who was recently in the hospital for ambulatory dysfunction and was sent to rehab. Reportedly, patient signed out AMA from the rehab and went home. She reports that her daughter did not want her to be home. She was then brought to the hospital. Generalized weakness weakness UTI History of chronic inflammatory demyelinating polyneuritis and inclusion body myositis Patient recently signed out AMA from the rehab; unable to get inside her home. 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 It may contain grammatical, syntax or spelling errors. Any formal questions or concerns about the content, text or information contained within the body of this dictation should be directly addressed to the provider for clarification Admission and Anticipated Discharge Date Admission Date: June 13, 2023 Subjective Patient seen and examined at bedside. Comfortable; not in distress. Denies fever, chills, chest pain, shortness of breath, abdominal pain or urinary symptoms. No significant overnight events Review of Systems Review of Systems: All systems reviewed & are unremarkable except as noted in Subjective Physical Exam Physical Exam: General- oriented x 3, not in distress, speaks in sentences with no effort or accessory muscle use Lungs- clear breath sounds bilaterally, no crackles or wheezes, no rhonchi Heart- normal rate, regular rhythm; no murmurs Abdomen- normal bowel sounds, nondistended, soft, nontender Extremities- no pretibial edema, no calf tenderness. Laceration present on dorsal aspect of left hand Neuro- alert, oriented x 3; no gross focal neurologic deficits Skin- warm & dry Results & Data Results & Data Vital Signs (Past 12 Hours) Vital Signs Temp Pulse Resp BP Pulse Ox O2 Del Method 06/15/23 07:39 36.5 C 70 16 143/87 H 94 Room Air
--- NOTE | 2023-06-15 16:17 | Psychiatric Consultation ---
Date of Consultation June 15, 2023 Impression / Recommendations Impression 82 yo female who is grieving the loss of her daughter and autonomy. She has no prior psych history. Granddaughter is unsure of POA status. Daughter represents owns home at this point. CM communicating with office of aging. Patient has had periods of confusion related to delirium during previous stays with infection but has since resolved. No dementia dx or treatment. (1) Adjustment disorder with depressed mood: Plan there is no evidence of delirium, psychosis, or major psychiatric condition interfering with her medical decision making at this time and primary hospitalist service is not questioning capacity during this stay. She is clearly minimizing her deficits as she wants to return home with services but voiced understanding of risks. Safe discharge disposition from hospitalist service is complicated by recent will not accept her back giving hx of leaving care prior to formal discharge planning and now patient cannot return to previous home as being represented as in daughter's name. CPT Code Overall, I spent a total of 78 minutes with this case, including review of chart, review of records, direct evaluation of the patient, counseling the patient, coordination with nursing,coordination of care with hospitalist service, interdisciplinary team meeting, and documentation. Psych History Identifying Data 82-year-old female with past medical history significant for idiopathic chronic gout, hyperlipidemia, hypothyroidism, history of CAD s/p stent, hypertension, diastolic dysfunction, GERD, history of dysphagia, history of inclusion body myositis, osteoarthritis, chronic inflammatory demyelinating polyneuritis, who was recently in the hospital for ambulatory dysfunction and now readmitted after signing out of rehab. Chief Complaint "I don't know how she can take my home." "I just want to be home." History of Present Illness Today the patient reports she is open to any and all care that would allow her to stay in her home. She described her premorbid and more recent functioning while also minimizing some of family concerns. She is adamant that she does not want communication with her daughter and per granddaughter (daughter of her daughter who passed; aunt does not have official POA). Daughter representing to that home is in her name and patient cannot return. Daughter and granddaughter reportedly agree to need for SNF. Patient agrees that she was delrious during some previous stays while fighting infection and has some confusion around how "all this could happen." She is so disappointed that she missed her daughter's while hospitalized and started to cry. She has lived her her home "all my life and now its gone, everything is gone, what am I supposed to do.? The patient has difficulty holding a pencil to complete the visualspatial tasks on the MoCA due to her contractures so will remove those 5 points. the remaining tasks were intact save 1 point on fluency (got 7 words instead of >11 required) and sores only 1/5 on delayed recall of words. Her score was therefore 20/25. Case was discussed briefly with Dr. Mehta who feels that the patient does have capacity for consent for medical treatment, etc. She indicates that prior to rehab she was able to use lift chair, receive meals on wheels, had spinning operator to assist with bathing. It's hard for her to "believe" that she really needs 24 hr care and we reviewed rehab vs. step down, etc. She also worried that her family is trying to have her "declared insane" and reviewed rationale for capacity consults. She specifically denies that she is suicidal but also feels that she doesn't want to "end up stuck in a home for the rest of my life" so in that sense she feels hopeless about her situation. as per ED CM: Diana presents to the ED from home after leaving [facility] today. Diana reported that she left there because she was running out of insurance days and wanted to return home. She states that she had care all lined up for herself, but once she got to her home, her daughter told her that she couldnt stay there. Police/EMS were called and Diana was brought to [facility] by EMS. It was reported by EMS that Diana made suicidal statements. Reached out to Diana Márquez primary contact and daughter to gather information. There is a dx of delirium due to general medical condition in the chart and it was important to ascertain where Diana was coming from and under what conditions. Yulisa stated that Diana cannot care for herself and signed out of [facility] AMA this afternoon. She acknowledged that it was true that Diana was running out of rehab bed days, but Yulisa states she was working with insurance and the facility to get her a SNF bed. Yulisa reports that Diana has these periods of confusion where she makes poor decisions, like she did today signing out AMA. Yulisa states that there were no home health agencies lined up at discharge and that Diana requires 24h care. Yulisa made it clear to Diana that she did not support a discharge home as she and her family cannot take care of her. Because of this, Diana enlisted her neighbors/family friends to pick her up at the facility unbeknownst to her family. Diana did not have a stallings to the home and therefore Yulisa showed up there telling Diana and the neighbors that she absolutely cannot live in her home alone. Yulisa also states that [facility] ([facility]) became involved during one of her recent hospital stays and were not able to help much. When Yulisa called for EMS, Diana made a statement just leave me here with a bottle of pills or a gun so I can end it. Yulisa states she believes that Diana only made this statement because she wanted to be permitted into her home and wasnt able to be. Yulisa states Diana has means to harm herself. Diana denies being suicidal upon arrival. Yulisa notes that Diana had a psych consult on one of her most recent inpatient stays, but as the of Diana other daughter (who passed from brain cancer in April 2023) was so recent, it was felt that the overwhelming grief of her loss was the cause of any depressive symptoms. Reached out to [facility] and spoke to Melany there. She confirms that Diana left AMA today. Her last covered day for a rehab bed was supposed to be tomorrow night and they have been working with the social workers to come up with a plan. Melany reports there were no home health services set up for Diana when she left AMA. Her plan for care was her family friends/neighbors the Jareds to care for her sporadically. Diana confirms this. Melany reports that Yulisa came to visit Diana this morning at [facility] and the two of them talked to Diana about not signing out AMA as it would be an unsafe discharge. Melany provides information that Diana was receiving daily cognitive tests and was passing each one. Melany also wishes to pass along that at this point, [facility] will not be welcoming her back due to the circumstances. Diana reports that her daughter Yulisa is [id number] and that she and her late had signed the house over to the kids thinking that they would be able to still live in the home through the duration of their lives. She reports that she has no money because Yulisa has taken it all. Spoke to Diana about being admitted to the hospital for potential placement/figuring out what her disposition should be. At the time of admission, she had no place to go. Diana is adamant that she can live alone with a little help and reiterates I still have my mind. Yulisa states that no one in my family is willing to assume care of her weve reached our limit. Of note, Yulisa called in to the ED asking for updates during Diana visit and reached the right of way supervisor who provided update that her mothers labs were still pending and the care plan is ongoing. Diana later decided she wished not for Yulisa to receive any updates. Sienna contact information removed from Diana chart at her request, Diana does give permission for her granddaughter to receive updates and visit her. Note prior hx by Dr. 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 April 28 to 2023 Patient admitted for acute appendicitis status post surgery. Patient refused rehab placement. Family thinks patient should be placed but patient adamantly wants to stay at home. May 01 to 2023 Patient readmitted for delirium secondary to E. coli UTI status post antibiotic Rx. Patient discharged to rehab facility. Patient discharged home from rehab facility yesterday. She already felt strong at time of discharge. Expecting in-home services 2 days from now. At home patient could not get up from recliner/lift chair by herself. Patient denies headache, chest pain, SOB, focal arm or leg weakness. Family could not accompany patient at home until in-home services available. EMS called to patient's home to have patient evaluated at the ER. Allergies Allergy/AdvReac Type Severity Reaction Status Date / Time lemon Allergy Verified 05/28/23 08:46 orange Allergy Verified 05/28/23 08:46 Libby And Derivatives AdvReac Hives Verified 05/27/23 08:20 Home Medications Medication Instructions Recorded Confirmed Type acetaminophen 500 mg tablet 500 mg PO QID PRN Pain #30 tabs 05/28/23 06/13/23 Rx (Tylenol Extra Strength) allopurinol 100 mg tablet 100 mg PO QAM #30 tabs 05/28/23 06/13/23 Rx amlodipine 5 mg tablet (Norvasc) 5 mg PO QAM #30 tabs 05/28/23 06/13/23 Rx aspirin 81 mg tablet,delayed 81 mg PO QAM #30 tabs 05/28/23 06/13/23 Rx release (Ecotrin Low Strength) atorvastatin 40 mg tablet 40 mg PO HS #90 tabs 05/28/23 06/13/23 Rx cholecalciferol (vitamin D3) 25 2,000 unit PO DAILY #30 tabs 05/28/23 06/13/23 Rx mcg (1,000 unit) tablet (Vitamin D3) cyanocobalamin (vitamin B-12) 1,000 mcg IM MONTHLY #10 mL 05/28/23 06/13/23 Rx 1,000 mcg/mL injection solution diclofenac sodium 1 % topical gel 2 g topical DIRECTED PRN Pain 05/28/23 06/13/23 Rx #100 grams duloxetine 30 mg capsule,delayed 30 mg PO HS #30 caps 05/28/23 06/13/23 Rx release (Cymbalta) ferrous sulfate 325 mg (65 mg 325 mg PO QAM #30 tabs 05/28/23 06/13/23 Rx iron) tablet gabapentin 600 mg tablet 600 mg PO TID #90 tabs 05/28/23 06/13/23 Rx (Neurontin) hydrocortisone 2.5 % topical cream 1 applic topical DIRECTED PRN 05/28/23 06/13/23 Rx with perineal applicator Hemorrhoids #30 grams levothyroxine 88 mcg tablet 88 mcg PO 6XWK #60 tabs 05/28/23 06/13/23 Rx metoprolol succinate 25 mg 25 mg PO DAILY #30 tabs 05/28/23 06/13/23 Rx tablet,extended release 24 hr pantoprazole 20 mg tablet,delayed 20 mg PO QAM #30 tabs 05/28/23 06/13/23 Rx release prednisone 5 mg tablet 5 mg PO DAILY #30 tabs 05/28/23 06/13/23 Rx Patient History Medical History Acute appendicitis Acute appendicitis UTI (urinary tract infection) Encounter for pre-operative examination History of KS (myocardial infarction) Coronary artery disease CHF (congestive heart failure) Severe sepsis Inflammatory arthritis Gout Inclusion body myositis 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 HLD (hyperlipidemia) Neuropathy Surgical History S/P cardiac cath History of hysterectomy Family History Other Coronary heart disease Social History Smoking Status: Never smoker Second Hand Exposure: No; Do You Dip or Chew Tobacco: No; Hx Alcohol Use: No Hx Substance Use: No Preferred Language: Kyrgyz Communication Ability: Effective Homicide Squad Sergeant Required: No Beliefs That Will Affect Care: None Current Living Situation: Alone Current Living Situation Comment: See ED CM note from 06/12 Feels Safe at Home: Yes Safety Concerns: Feels Safe At This Time Assistive Devices: Lift Chair and Walker Physical Exam Psychiatric: Orientation: alert and oriented x 3 Apperance: appropriately dressed and appropriately groomed Eye Contact: good eye contact Motor Behavior: no abnormal motor movements Speech: normal rate/rhythm/volume of speech Affect: + depressed affect Mood: + depressed mood Thought Process: goal directed thought process Thought Content: reality based without delusions Suicidal Thoughts: denies suicidal thoughts Homicidal Thoughts: denies homicidal thoughts Hallucinations: no auditory hallucinations and no visual hallucinations Cognition: attention grossly intact and language gross ly intact Estimated Intelligence: consistent with education level Insight: + limited insight Judgment: + limited judgement Vital Signs (Past 24 Hours): Last Vital Signs Temp 36.7 C 06/15/23 15:16 Pulse 66 06/15/23 15:16 Resp 16 06/15/23 15:16 BP 111/73 06/15/23 15:16 Pulse Ox 94 06/15/23 15:16 O2 Del Method Room Air 06/15/23 15:16 Review of Systems All systems reviewed & are unremarkable except as noted in HPI & below Results & Data (PSY) Medications Administered Acetaminophen (Acetaminophen 325 Mg Tab) 650 mg PO Q4H PRN PRN Reason: pain/fever Stop: 07/14/23 01:22 Last Admin: 06/15/23 13:46 Dose: 650 mg Documented By: Admin: 06/15/23 08:28 Dose: 650 mg Documented By: Admin: 06/14/23 20:17 Dose: 650 mg Documented By: Admin: 06/14/23 15:51 Dose: 650 mg Documented By: Admin: 06/14/23 08:32 Dose: 650 mg Documented By: Admin: 06/14/23 02:54 Dose: 650 mg Documented By: SHIMA Allopurinol (Allopurinol 100 Mg Tab) 100 mg PO [facility] Stop: 07/14/23 08:59 Last Admin: 06/15/23 08:22 Dose: 100 mg Documented By: Admin: 06/14/23 08:26 Dose: 100 mg Documented By: DYLON Amlodipine Besylate (Amlodipine Besylate 5 Mg Tab) 5 mg PO [facility] Stop: 07/14/23 08:59 Last Admin: 06/15/23 08:21 Dose: 5 mg Documented By: Admin: 06/14/23 08:26 Dose: 5 mg Documented By: DYLON Aspirin (Aspirin 81 Mg Ectab) 81 mg PO [facility] Stop: 07/14/23 08:59 Last Admin: 06/15/23 08:21 Dose: 81 mg Documented By: Admin: 06/14/23 08:26 Dose: 81 mg Documented By: DYLON Atorvastatin Calcium (Atorvastatin 40 Mg Tab) 40 mg PO [facility] Stop: 07/14/23 20:59 Last Admin: 06/14/23 20:19 Dose: 40 mg Documented By: OPAL Duloxetine HCl (Duloxetine Hcl 30 Mg Cap) 30 mg PO [facility] Stop: 07/14/23 20:59 Last Admin: 06/14/23 20:19 Dose: 30 mg Documented By: OPAL Ferrous Sulfate (Ferrous Sulfate 325 Mg Tab) 325 mg PO [facility] Stop: 07/14/23 08:59 Last Admin: 06/15/23 08:21 Dose: 325 mg Documented By: Admin: 06/14/23 08:26 Dose: 325 mg Documented By: KTS Gabapentin (Gabapentin 600 Mg Tab) 600 mg PO TID J[facility] Stop: 07/14/23 08:59 Last Admin: 06/15/23 13:45 Dose: 600 mg Documented By: Admin: 06/15/23 08:22 Dose: 600 mg Documented By: Admin: 06/14/23 20:18 Dose: 600 mg Documented By: Admin: 06/14/23 13:57 Dose: 600 mg Documented By: Admin: 06/14/23 08:26 Dose: 600 mg Documented By: DYLON Heparin Sodium (Porcine) (Heparin Sod 5,000 Unit/0.5 Ml Vial) 5,000 units SQ Q12 JERE Stop: 07/14/23 08:59 Last Admin: 06/15/23 08:23 Dose: 5,000 units Documented By: Admin: 06/14/23 20:19 Dose: 5,000 units Documented By: Admin: 06/14/23 08:27 Dose: 5,000 units Documented By: DYLON Levothyroxine Sodium (Levothyroxine Sodium 88 Mcg Tablet) 88 mcg PO [id number] JERE Stop: 07/14/23 06:29 Last Admin: 06/14/23 05:29 Dose: 88 mcg Documented By: SHIMA Metoprolol Succinate (Metoprolol Succ 25mg Ext Rel Tab) 25 mg PO DAILY J[facility] Stop: 07/14/23 08:59 Last Admin: 06/15/23 08:21 Dose: 25 mg Documented By: Admin: 06/14/23 08:17 Dose: Not Given Documented By: DYLON Pantoprazole Sodium (Pantoprazole 40 Mg Tab) 40 mg PO QAM JERE Stop: 07/14/23 08:59 Last Admin: 06/15/23 08:22 Dose: 40 mg Documented By: Admin: 06/14/23 08:26 Dose: 40 mg Documented By: DYLON Prednisone (Prednisone 5 Mg Tab) 5 mg PO DAILY JERE Stop: 07/14/23 08:59 Last Admin: 06/15/23 08:22 Dose: 5 mg Documented By: Admin: 06/14/23 08:27 Dose: 5 mg Documented By: DYLON Vitamin D (Cholecalciferol 25 Mcg (1000 Units) Tab) 50 mcg PO DAILY JERE Stop: 07/14/23 08:59 Last Admin: 06/15/23 08:22 Dose: 50 mcg Documented By: Admin: 06/14/23 08:26 Dose: 50 mcg Documented By: DYLON Coding Level of Care Code 19982 [facility] Intl Hosp Care l 3 Diagnoses Adjustment disorder with depressed mood F43.21
--- NOTE | 2023-06-16 16:58 | Hospitalist Progress Note ---
Date of Service June 16, 2023 Assessment & Plan (1) Generalized weakness: Plan: 82-year-old female with past medical history significant for idiopathic chronic gout, hyperlipidemia, hypothyroidism, history of CAD s/p stent, hypertension, diastolic dysfunction, GERD, history of dysphagia, history of inclusion body myositis, osteoarthritis, chronic inflammatory demyelinating polyneuritis, who was recently in the hospital for ambulatory dysfunction and was sent to rehab. Reportedly, patient signed out AMA from the rehab and went home. She reports that her daughter did not want her to be home. She was then brought to the hospital. Generalized weakness weakness UTI History of chronic inflammatory demyelinating polyneuritis and inclusion body myositis Patient recently signed out AMA from the rehab; unable to get inside her home. Urinalysis suggestive of infection Urine culture there is any growth Will DC antibiotics Continue PT OT eval Left hand skin tear Skin tear over the left hand on dorsal aspect Wound care evaluated the patient. Continue dressing change. Chronic demyelinating pruritus inclusion body myositis On prednisone; continue Chronic diastolic CHF Monitor for volume overload History of CAD s/p stent On aspirin, statin and beta-laurie GERD On Protonix Gout Allopurinol Hypertension On amlodipine and metoprolol Will monitor 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 On Synthyroid DVT prophylaxis Heparin subcu Disposition Medical floor Social service to help with discharge planning Patient medically stable for transfer at the moment. Full code Please note the above document was generated using voice recognition software. It may contain grammatical, syntax or spelling errors. Any formal questions or concerns about the content, text or information contained within the body of t his dictation should be directly addressed to the provider for clarification Admission and Anticipated Discharge Date Admission Date: June 13, 2023 Subjective Patient seen and examined at bedside. Comfortable; not in distress. Denies fever, chills, chest pain, shortness of breath, abdominal pain or urinary symptoms. No significant overnight events Review of Systems Review of Systems: All systems reviewed & are unremarkable except as noted in Subjective Physical Exam Physical Exam: General- oriented x 3, not in distress, speaks in sentences with no effort or accessory muscle use Lungs- clear breath sounds bilaterally, no crackles or wheezes, no rhonchi Heart- normal rate, regular rhythm; no murmurs Abdomen- normal bowel sounds, nondistended, soft, nontender Extremities- no pretibial edema, no calf tenderness. Laceration present on dorsal aspect of left hand; bandages in place. Clean dry and intact Neuro- alert, oriented x 3; no gross focal neurologic deficits Skin- warm & dry Results & Data Results & Data Vital Signs (Past 12 Hours) Vital Signs Temp Pulse Resp BP Pulse Ox O2 Del Method 06/16/23 14:56 36.4 C L 63 16 136/79 93 Room Air 06/16/23 08:21 68 06/16/23 06:01 36.7 C 55 L 14 151/75 H 94 Room Air
--- NOTE | 2023-06-17 16:18 | Hospitalist Progress Note ---
Date of Service June 17, 2023 Assessment & Plan (1) Generalized weakness: Plan: 82-year-old female with past medical history significant for idiopathic chronic gout, hyperlipidemia, hypothyroidism, history of CAD s/p stent, hypertension, diastolic dysfunction, GERD, history of dysphagia, history of inclusion body myositis, osteoarthritis, chronic inflammatory demyelinating polyneuritis, who was recently in the hospital for ambulatory dysfunction and was sent to rehab. Reportedly, patient signed out AMA from the rehab and went home. She reports that her daughter did not want her to be home. She was then brought to the hospital. Generalized weakness weakness UTI History of chronic inflammatory demyelinating polyneuritis and inclusion body myositis Patient recently signed out AMA from the rehab; unable to get inside her home. Urinalysis suggestive of infection Urine culture w/ no growth, ATB was dc'd. Continue PT OT eval Left hand skin tear Skin tear over the left hand on dorsal aspect Wound care evaluated the patient. Continue dressing change. Chronic demyelinating pruritus inclusion body myositis: On prednisone; continue Chronic diastolic CHF: Monitor for volume overload History of CAD s/p stent: On aspirin, statin and beta-laurie GERD: On Protonix, continue. Gout: Continue Allopurinol Hypertension: On amlodipine and metoprolol. Continue. Will monitor 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: On Synthyroid, continue. DVT prophylaxis: Heparin subcu Disposition Medical floor Social service to help with discharge planning Patient medically stable for transfer at the moment. Full code Please note the above document was generated using voice recognition software. It may contain grammatical, syntax or spelling errors. Any formal questions or concerns about the content, text or information contained within the body of this dictation should be directly addressed to the provider for clarification Admission and Anticipated Discharge Date Admission Date: June 13, 2023 Subjective Patient seen and examined at bedside. Comfortable; not in distress. Sitting up in chair. Denies fever, chills, chest pain, shortness of breath, abdominal pain or urinary symptoms. No significant overnight events Physical Exam Physical Exam: General- oriented x 3, not in distress, speaks in sentences with no effort or accessory muscle use Lungs- clear breath sounds bilaterally, no crackles or wheezes, no rhonchi Heart- normal rate, regular rhythm; no murmurs Abdomen- normal bowel sounds, nondistended, soft, nontender Extremities- no pretibial edema, no calf tenderness. Laceration present on dorsal aspect of left hand; bandages in place. Clean dry and intact Neuro- alert, oriented x 3; no gross focal neurologic deficits Skin- warm & dry Results & Data Results & Data Vital Signs (Past 12 Hours) Vital Signs Temp Pulse Resp BP BP Pulse Ox O2 Del Method 06/17/23 15:38 36.9 C 71 16 105/68 96 Room Air 06/17/23 08:14 68 96 Room Air 06/17/23 07:18 36.3 C L 52 L 16 145/83 H 95 Room Air
[2023-06-18] MEDS: DICLOFENAC SOD 1% GEL 100 GM TUBE EXT PRN (09:02)
--- NOTE | 2023-06-18 16:04 | Hospitalist Progress Note ---
Date of Service June 18, 2023 Assessment & Plan (1) Generalized weakness: Plan: 82-year-old female with past medical history significant for idiopathic chronic gout, hyperlipidemia, hypothyroidism, history of CAD s/p stent, hypertension, diastolic dysfunction, GERD, history of dysphagia, history of inclusion body myositis, osteoarthritis, chronic inflammatory demyelinating polyneuritis, who was recently in the hospital for ambulatory dysfunction and was sent to rehab. Reportedly, patient signed out AMA from the rehab and went home. She reports that her daughter did not want her to be home. She was then brought to the hospital. Generalized weakness weakness UTI History of chronic inflammatory demyelinating polyneuritis and inclusion body myositis Patient recently signed out AMA from the rehab; unable to get inside her home. Urinalysis suggestive of infection Urine culture w/ no growth, ATB was dc'd. Continue PT OT eval Left hand skin tear Skin tear over the left hand on dorsal aspect Wound care evaluated the patient. Continue dressing change. Chronic demyelinating pruritus inclusion body myositis: On prednisone; continue Chronic diastolic CHF: Monitor for volume overload History of CAD s/p stent: On aspirin, statin and beta-laurie GERD: On Protonix, continue. Gout: Continue Allopurinol Hypertension: On amlodipine and metoprolol. Continue. Will monitor 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: On Synthyroid, continue. DVT prophylaxis: Heparin subcu Disposition Medical floor Social service to help with discharge planning Patient medically stable for transfer at the moment. Full code Please note the above document was generated using voice recognition software. It may contain grammatical, syntax or spelling errors. Any formal questions or concerns about the content, text or information contained within the body of this dictation should be directly addressed to the provider for clarification Admission and Anticipated Discharge Date Admission Date: June 13, 2023 Subjective Patient seen and examined at bedside. Comfortable; not in distress. Sitting up in chair. Denies fever, chills, chest pain, shortness of breath, abdominal pain or urinary symptoms. Patient reports having knee pain since last evening, no swelling/erythema/tenderness on exam. Patient reports improvement with Voltaren gel. Increased frequency of the gel. Patient would like x-ray of her both knees done, ordered. Physical Exam Physical Exam: General- oriented x 3, not in distress, speaks in sentences with no effort or accessory muscle use Lungs- clear breath sounds bilaterally, no crackles or wheezes, no rhonchi Heart- normal rate, regular rhythm; no murmurs Abdomen- normal bowel sounds, nondistended, soft, nontender Extremities- no pretibial edema, no calf tenderness. Laceration present on dorsal aspect of left hand; bandages in place. Clean dry and intact Neuro- alert, oriented x 3; no gross focal neurologic deficits Skin- warm & dry Results & Data Results & Data Vital Signs (Past 12 Hours) Vital Signs Temp Pulse Resp BP Pulse Ox O2 Del Method 06/18/23 14:55 36.4 C L 61 18 117/73 96 Room Air 06/18/23 07:44 36.4 C L 57 L 16 150/88 H 94 Room Air
--- NOTE | 2023-06-18 16:55 | XRay Report ---
XR knee RT 3V HISTORY: 82 years-old Female knee pain acute bilateral knee pain COMPARISON: Left knee radiographs of same day TECHNIQUE: 3 views of the right knee FINDINGS: Demineralized appearance of the bones. Mild tricompartmental osteoarthritis. Trace joint effusion lesvia pected. Arterial calcifications. No acute fracture, dislocation, osseous erosion or opaque foreign kelley dy. IMPRESSION: Mild osteoarthritis without acute fracture. ACT 112: Negative or not required by law. The above report was generated using voice recognition software. It may contain grammatical, syntax o r spelling errors. Electronically signed by: Carlos Shine M.D. 06/18/2023 4:54 PM
--- NOTE | 2023-06-18 16:59 | XRay Report ---
LEFT KNEE 3 VIEWS CLINICAL HISTORY: Left knee pain. FINDINGS: AP, crosstable lateral, and sunrise views of the left knee are obtained. No prior studies a re available for comparison at the time of dictation. The skeletal structures are osteopenic. No frac ture is seen. There is moderate tricompartmental degenerative joint space narrowing. There are tiny m arginal osteophytes and patellar enthesophytes. No joint effusion is identified. Question faint chond rocalcinosis within the medial and lateral compartments. There is marked atrophy of the overlying sof t tissues. IMPRESSION: Osteopenia and degenerative changes above with no acute bony abnormality identified. Electronically signed by: Jeremias Fairbanks M.D. 06/18/2023 4:57 PM
[2023-06-19] MEDS: DICLOFENAC SOD 1% GEL 100 GM TUBE EXT PRN (09:12)
--- NOTE | 2023-06-19 16:33 | Hospitalist Progress Note ---
Date of Service June 19, 2023 Assessment & Plan (1) Generalized weakness: Plan: 82-year-old female with past medical history significant for idiopathic chronic gout, hyperlipidemia, hypothyroidism, history of CAD s/p stent, hypertension, diastolic dysfunction, GERD, history of dysphagia, history of inclusion body myositis, osteoarthritis, chronic inflammatory demyelinating polyneuritis, who was recently in the hospital for ambulatory dysfunction and was sent to rehab. Reportedly, patient signed out AMA from the rehab and went home. She reports that her daughter did not want her to be home. She was then brought to the hospital. Generalized weakness weakness UTI History of chronic inflammatory demyelinating polyneuritis and inclusion body myositis Patient recently signed out AMA from the rehab; unable to get inside her home. Urinalysis suggestive of infection Urine culture w/ no growth, ATB was dc'd. Continue PT OT eval Left hand skin tear Skin tear over the left hand on dorsal aspect Wound care evaluated the patient. Continue dressing change. Chronic demyelinating pruritus inclusion body myositis: On prednisone; continue Chronic diastolic CHF: Monitor for volume overload History of CAD s/p stent: On aspirin, statin and beta-laurie GERD: On Protonix, continue. Gout: Continue Allopurinol Hypertension: On amlodipine and metoprolol. Continue. Will monitor 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: On Synthyroid, continue. DVT prophylaxis: Heparin subcu Disposition Medical floor Social service to help with discharge planning Patient medically stable for transfer at the moment. Full code Please note the above document was generated using voice recognition software. It may contain grammatical, syntax or spelling errors. Any formal questions or concerns about the content, text or information contained within the body of this dictation should be directly addressed to the provider for clarification Admission and Anticipated Discharge Date Admission Date: June 13, 2023 Subjective Patient seen and examined at bedside. Comfortable; not in distress. Sitting up in chair. Denies fever, chills, chest pain, shortness of breath, abdominal pain or urinary symptoms. Patient reports improvement in her chronic knee pain with application of Voltaren gel. Will continue to use Voltaren gel as needed. X-ray findings of both knees discussed with the patient, she voiced understanding. Physical Exam Physical Exam: General- oriented x 3, not in distress, speaks in sentences with no effort or accessory muscle use Lungs- clear breath sounds bilaterally, no crackles or wheezes, no rhonchi Heart- normal rate, regular rhythm; no murmurs Abdomen- normal bowel sounds, nondistended, soft, nontender Extremities- no pretibial edema, no calf tenderness. Laceration present on dorsal aspect of left hand; bandages in place. Clean dry and intact Neuro- alert, oriented x 3; no gross focal neurologic deficits Skin- warm & dry Results & Data Results & Data Vital Signs (Past 12 Hours) Vital Signs Temp Pulse Resp BP BP Pulse Ox O2 Del Method 06/19/23 15:57 36.7 C 59 L 16 110/72 96 Room Air 06/19/23 07:21 36.4 C L 61 16 141/81 H 98 Room Air
--- NOTE | 2023-06-20 16:23 | Hospitalist Progress Note ---
Date of Service June 20, 2023 Assessment & Plan (1) Generalized weakness: Plan: 82-year-old female with past medical history significant for idiopathic chronic gout, hyperlipidemia, hypothyroidism, history of CAD s/p stent, hypertension, diastolic dysfunction, GERD, history of dysphagia, history of inclusion body myositis, osteoarthritis, chronic inflammatory demyelinating polyneuritis, who was recently in the hospital for ambulatory dysfunction and was sent to rehab. Reportedly, patient signed out AMA from the rehab and went home. She reports that her daughter did not want her to be home. She was then brought to the hospital. Generalized weakness weakness UTI History of chronic inflammatory demyelinating polyneuritis and inclusion body myositis Patient recently signed out AMA from the rehab; unable to get inside her home. Urinalysis suggestive of infection Urine culture w/ no growth, ATB was dc'd. Continue PT OT eval Left hand skin tear Skin tear over the left hand on dorsal aspect Wound care evaluated the patient. Continue dressing change. Chronic demyelinating pruritus inclusion body myositis: On prednisone; continue Chronic diastolic CHF: Monitor for volume overload History of CAD s/p stent: On aspirin, statin and beta-laurie GERD: On Protonix, continue. Gout: Continue Allopurinol Hypertension: On amlodipine and metoprolol. Continue. Will monitor 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: On Synthyroid, continue. DVT prophylaxis: Heparin subcu Disposition Medical floor Social service to help with discharge planning Patient medically stable for transfer at the moment. Full code Please note the above document was generated using voice recognition software. It may contain grammatical, syntax or spelling errors. Any formal questions or concerns about the content, text or information contained within the body of this dictation should be directly addressed to the provider for clarification Admission and Anticipated Discharge Date Admission Date: June 13, 2023 Subjective Patient seen and examined at bedside. Comfortable; not in distress. lying in bed. Denies fever, chills, chest pain, shortness of breath, abdominal pain or urinary symptoms. Patient reports improvement in her chronic knee pain with application of Voltaren gel. Will continue to use Voltaren gel as needed. Physical Exam Physical Exam: General- oriented x 3, not in distress, speaks in sentences with no effort or accessory muscle use Lungs- clear breath sounds bilaterally, no crackles or wheezes, no rhonchi Heart- normal rate, regular rhythm; no murmurs Abdomen- normal bowel sounds, nondistended, soft, nontender Extremities- no pretibial edema, no calf tenderness. Laceration present on dorsal aspect of left hand; bandages in place. Clean dry and intact Neuro- alert, oriented x 3; no gross focal neurologic deficits Skin- warm & dry Results & Data Results & Data Vital Signs (Past 12 Hours) Vital Signs Temp Pulse Resp BP BP Pulse Ox O2 Del Method 06/20/23 15:15 36.4 C L 59 L 16 116/67 98 Room Air 06/20/23 08:06 68 145/91 H 06/20/23 07:14 36.7 C 59 L 16 161/84 H 94 Room Air
--- NOTE | 2023-06-21 16:07 | Hospitalist Progress Note ---
Date of Service June 21, 2023 Assessment & Plan (1) Generalized weakness: Plan: 82-year-old female with past medical history significant for idiopathic chronic gout, hyperlipidemia, hypothyroidism, history of CAD s/p stent, hypertension, diastolic dysfunction, GERD, history of dysphagia, history of inclusion body myositis, osteoarthritis, chronic inflammatory demyelinating polyneuritis, who was recently in the hospital for ambulatory dysfunction and was sent to rehab. Reportedly, patient signed out AMA from the rehab and went home. She reports that her daughter did not want her to be home. She was then brought to the hospital. Generalized weakness weakness UTI History of chronic inflammatory demyelinating polyneuritis and inclusion body myositis Patient recently signed out AMA from the rehab; unable to get inside her home. Urinalysis suggestive of infection Urine culture w/ no growth, ATB was dc'd. Continue PT OT eval Left hand skin tear Skin tear over the left hand on dorsal aspect Wound care evaluated the patient. Continue dressing change. Chronic demyelinating pruritus inclusion body myositis: On prednisone; continue Chronic diastolic CHF: Monitor for volume overload History of CAD s/p stent: On aspirin, statin and beta-laurie GERD: On Protonix, continue. Gout: Continue Allopurinol Hypertension: On amlodipine and metoprolol. Continue. Will monitor 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: On Synthyroid, continue. DVT prophylaxis: Heparin subcu Disposition Medical floor Social service to help with discharge planning Patient medically stable for transfer at the moment. Full code Please note the above document was generated using voice recognition software. It may contain grammatical, syntax or spelling errors. Any formal questions or concerns about the content, text or information contained within the body of this dictation should be directly addressed to the provider for clarification Admission and Anticipated Discharge Date Admission Date: June 13, 2023 Subjective Patient seen and examined at bedside. Comfortable; not in distress. lying in bed. Denies fever, chills, chest pain, shortness of breath, abdominal pain or urinary symptoms. Patient reports improvement in her chronic knee pain with application of Voltaren gel. Will continue to use Voltaren gel as needed. Physical Exam Physical Exam: General- oriented x 3, not in distress, speaks in sentences with no effort or accessory muscle use Lungs- clear breath sounds bilaterally, no crackles or wheezes, no rhonchi Heart- normal rate, regular rhythm; no murmurs Abdomen- normal bowel sounds, nondistended, soft, nontender Extremities- no pretibial edema, no calf tenderness. Laceration present on dorsal aspect of left hand; bandages in place. Clean dry and intact Neuro- alert, oriented x 3; no gross focal neurologic deficits Skin- warm & dry Results & Data Results & Data Vital Signs (Past 12 Hours) Vital Signs Temp Pulse Resp BP Pulse Ox O2 Del Method 06/21/23 15:08 36.6 C 60 16 134/75 92 Room Air 06/21/23 07:20 36.5 C 60 16 143/82 H 94 Room Air
--- NOTE | 2023-06-22 15:47 | Hospitalist Progress Note ---
Date of Service June 22, 2023 Assessment & Plan (1) Generalized weakness: Plan: 82-year-old female with past medical history significant for idiopathic chronic gout, hyperlipidemia, hypothyroidism, history of CAD s/p stent, hypertension, diastolic dysfunction, GERD, history of dysphagia, history of inclusion body myositis, osteoarthritis, chronic inflammatory demyelinating polyneuritis, who was recently in the hospital for ambulatory dysfunction and was sent to rehab. Reportedly, patient signed out AMA from the rehab and went home. She reports that her daughter did not want her to be home. She was then brought to the hospital. Generalized weakness weakness UTI History of chronic inflammatory demyelinating polyneuritis and inclusion body myositis Patient recently signed out AMA from the rehab; unable to get inside her home. Urinalysis suggestive of infection Urine culture w/ no growth, ATB was dc'd. Continue PT OT eval Left hand skin tear Skin tear over the left hand on dorsal aspect Wound care evaluated the patient. Continue dressing change. Chronic demyelinating pruritus inclusion body myositis: On prednisone; continue Chronic diastolic CHF: Monitor for volume overload History of CAD s/p stent: On aspirin, statin and beta-laurie GERD: On Protonix, continue. Gout: Continue Allopurinol Hypertension: On amlodipine and metoprolol. Continue. Will monitor 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: On Synthyroid, continue. DVT prophylaxis: Heparin subcu Disposition Medical floor Social service to help with discharge planning Patient medically stable for transfer at the moment. Full code Please note the above document was generated using voice recognition software. It may contain grammatical, syntax or spelling errors. Any formal questions or concerns about the content, text or information contained within the body of this dictation should be directly addressed to the provider for clarification Admission and Anticipated Discharge Date Admission Date: June 13, 2023 Subjective Patient seen and examined at bedside. Comfortable; not in distress. lying in bed. Denies fever, chills, chest pain, shortness of breath, abdominal pain or urinary symptoms. Patient reports improvement in her chronic knee pain with application of Voltaren gel. Will continue to use Voltaren gel as needed. Physical Exam Physical Exam: General- oriented x 3, not in distress, speaks in sentences with no effort or accessory muscle use Lungs- clear breath sounds bilaterally, no crackles or wheezes, no rhonchi Heart- normal rate, regular rhythm; no murmurs Abdomen- normal bowel sounds, nondistended, soft, nontender Extremities- no pretibial edema, no calf tenderness. Laceration present on dorsal aspect of left hand; bandages in place. Clean dry and intact Neuro- alert, oriented x 3; no gross focal neurologic deficits Skin- warm & dry Results & Data Results & Data Vital Signs (Past 12 Hours) Vital Signs Temp Pulse Resp BP Pulse Ox O2 Del Method 06/22/23 11:56 36.3 C L 68 18 124/79 97 Room Air 06/22/23 09:44 Room Air 06/22/23 08:11 36.6 C 60 12 171/92 H 95 Room Air
--- NOTE | 2023-06-23 14:23 | Hospitalist Progress Note ---
Date of Service June 23, 2023 Assessment & Plan (1) Generalized weakness: Plan: 82-year-old female with past medical history significant for idiopathic chronic gout, hyperlipidemia, hypothyroidism, history of CAD s/p stent, hypertension, diastolic dysfunction, GERD, history of dysphagia, history of inclusion body myositis, osteoarthritis, chronic inflammatory demyelinating polyneuritis, who was recently in the hospital for ambulatory dysfunction and was sent to rehab. Reportedly, patient signed out AMA from the rehab and went home. She reports that her daughter did not want her to be home. She was then brought to the hospital. Generalized weakness weakness UTI History of chronic inflammatory demyelinating polyneuritis and inclusion body myositis Patient recently signed out AMA from the rehab; unable to get inside her home. Urinalysis suggestive of infection Urine culture w/ no growth, ATB was dc'd. Continue PT OT eval Left hand skin tear Skin tear over the left hand on dorsal aspect Wound care evaluated the patient. Continue dressing change. Chronic demyelinating pruritus inclusion body myositis: On prednisone; continue Chronic diastolic CHF: Monitor for volume overload History of CAD s/p stent: On aspirin, statin and beta-laurie GERD: On Protonix, continue. Gout: Continue Allopurinol Hypertension: On amlodipine and metoprolol. Continue. Will monitor 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: On Synthyroid, continue. DVT prophylaxis: Heparin subcu Disposition Medical floor Social service to help with discharge planning Patient medically stable for transfer at the moment. Full code Please note the above document was generated using voice recognition software. It may contain grammatical, syntax or spelling errors. Any formal questions or concerns about the content, text or information contained within the body of this dictation should be directly addressed to the provider for clarification Admission and Anticipated Discharge Date Admission Date: June 13, 2023 Subjective Patient seen and examined at bedside. Comfortable; not in distress. sitting up in chair. Denies fever, chills, chest pain, shortness of breath, abdominal pain or urinary symptoms. Patient reports improvement in her chronic knee pain with application of Voltaren gel. Will continue to use Voltaren gel as needed. Patient reports lower back discomfort and would like an x-ray be done. ordered. Physical Exam Physical Exam: General- oriented x 3, not in distress, speaks in sentences with no effort or accessory muscle use Lungs- clear breath sounds bilaterally, no crackles or wheezes, no rhonchi Heart- normal rate, regular rhythm; no murmurs Abdomen- normal bowel sounds, nondistended, soft, nontender Extremities- no pretibial edema, no calf tenderness. Laceration present on dorsal aspect of left hand; bandages in place. Clean dry and intact Neuro- alert, oriented x 3; no gross focal neurologic deficits Skin- warm & dry Non tender lower back, no s/s infection noted. Results & Data Results & Data Vital Signs (Past 12 Hours) Vital Signs Temp Pulse Resp BP Pulse Ox O2 Del Method 06/23/23 11:00 36.5 C 65 14 128/74 98 Room Air 06/23/23 07:29 Room Air 06/23/23 07:00 36.6 C 68 14 121/74 94 Room Air
--- NOTE | 2023-06-23 16:44 | XRay Report ---
XR lumbar spine 2-3V CLINICAL HISTORY: Low back pain. COMPARISON STUDY: CT of the abdomen and pelvis May 04, 2023. FINDINGS: There is slight anterolisthesis of L4 and L5. This is due to facet arthrosis. No lumbar spi ne fractures are present. There is moderate multilevel facet arthrosis and mild degenerative disc dis ease within the lumbar spine. IMPRESSION: 1. No lumbar spine fractures. 2. Mild multilevel degenerative disc disease and moderate facet arthrosis within the lumbar spine. ACT 112: Negative or not required by law. Electronically signed by: Kemal Anne M.D. 06/23/2023 4:43 PM
--- NOTE | 2023-06-24 17:30 | Hospitalist Progress Note ---
Date of Service June 24, 2023 Assessment & Plan (1) Generalized weakness: Plan: 82-year-old female with past medical history significant for idiopathic chronic gout, hyperlipidemia, hypothyroidism, history of CAD s/p stent, hypertension, diastolic dysfunction, GERD, history of dysphagia, history of inclusion body myositis, osteoarthritis, chronic inflammatory demyelinating polyneuritis, who was recently in the hospital for ambulatory dysfunction and was sent to rehab. Reportedly, patient signed out AMA from the rehab and went home. She reports that her daughter did not want her to be home. She was then brought to the hospital. Generalized weakness weakness UTI History of chronic inflammatory demyelinating polyneuritis and inclusion body myositis Patient recently signed out AMA from the rehab; unable to get inside her home. Urinalysis suggestive of infection Urine culture w/ no growth. Antibiotics was discontinued. Continue PT OT eval Left hand skin tear Skin tear over the left hand on dorsal aspect Wound care evaluated the patient. Continue dressing change. Chronic demyelinating pruritus inclusion body myositis: On prednisone; continue Chronic diastolic CHF: Monitor for volume overload History of CAD s/p stent: On aspirin, statin and beta-laurie GERD: On Protonix, continue. Gout: Continue Allopurinol Hypertension: On amlodipine and metoprolol. Continue. Will monitor 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: On Synthyroid, continue. DVT prophylaxis: Heparin subcu CM working on placement. Medically stable for discharge Full code I spent a total of 30 minutes coordinating, documenting and providing care for this patient excluding time spent in performance of separately billed services Admission and Anticipated Discharge Date Admission Date: June 13, 2023 Subjective Patient seen and examined. Denies any new complaints. Reports occasional low back discomfort which causes some difficulty getting up but when she gets up she is fine. Denies any pain Physical Exam Constitutional: + well hydrated; no acute distress Eyes: PERRL, conjunctivae normal, anicteric sclerae ENMT: external ear and nose normal, oropharynx normal Respiratory: normal respiratory effort, lungs clear to auscultation Cardiovascular: Rate/Rhythm: regular rate and regular rhythm S1 S2 Gastrointestinal (Abdomen): normal bowel sounds, soft, nontender, no hepatosplenomegaly Musculoskeletal: No pedal edema Neurologic: PERRL, EOMI, accommodation nl, no face palsy, no dysarthria Psychiatric: A+Ox3, euthymic affect Results & Data Results & Data Vital Signs (Past 12 Hours) Vital Signs Temp Pulse Resp BP Pulse Ox O2 Del Method 06/24/23 14:26 36.6 C 58 L 16 125/74 96 Room Air 06/24/23 07:03 36.3 C L 56 L 16 128/75 98 Room Air
--- NOTE | 2023-06-25 12:26 | Hospitalist Progress Note ---
Date of Service June 25, 2023 Assessment & Plan (1) Generalized weakness: Plan: 82-year-old female with past medical history significant for idiopathic chronic gout, hyperlipidemia, hypothyroidism, history of CAD s/p stent, hypertension, diastolic dysfunction, GERD, history of dysphagia, history of inclusion body myositis, osteoarthritis, chronic inflammatory demyelinating polyneuritis, who was recently in the hospital for ambulatory dysfunction and was sent to rehab. Reportedly, patient signed out AMA from the rehab and went home. She reports that her daughter did not want her to be home. She was then brought to the hospital. Generalized weakness weakness UTI History of chronic inflammatory demyelinating polyneuritis and inclusion body myositis Patient recently signed out AMA from the rehab; unable to get inside her home. Urinalysis suggestive of infection Urine culture w/ no growth. Antibiotics was discontinued. Continue PT OT eval while inpatient Left hand skin tear Skin tear over the left hand on dorsal aspect Wound care evaluated the patient. Continue dressing change. Chronic demyelinating pruritus inclusion body myositis: On prednisone; continue Chronic diastolic CHF: Currently euvolemic History of CAD s/p stent: On aspirin, statin and beta-laurie GERD: On Protonix, continue. Gout: Continue Allopurinol Hypertension: On amlodipine and metoprolol. Continue. Will monitor 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: On Synthyroid, continue. DVT prophylaxis: Heparin subcu CM working on placement. Medically stable for discharge Full code I spent a total of 30 minutes coordinating, documenting and providing care for this patient excluding time spent in performance of separately billed services Admission and Anticipated Discharge Date Admission Date: June 13, 2023 Subjective Patient seen and examined No new complaints Physical Exam Constitutional: + well hydrated; no acute distress Eyes: PERRL, conjunctivae normal, anicteric sclerae ENMT: external ear and nose normal, oropharynx normal Respiratory: normal respiratory effort, lungs clear to auscultation Cardiovascular: Rate/Rhythm: regular rate and regular rhythm S1 S2 Gastrointestinal (Abdomen): normal bowel sounds, soft, nontender, no he patosplenomegaly Musculoskeletal: No pedal edema Neurologic: PERRL, EOMI, accommodation nl, no face palsy, no dysarthria Psychiatric: A+Ox3, euthymic affect Results & Data Results & Data Vital Signs (Past 12 Hours) Vital Signs Temp Pulse Resp BP Pulse Ox O2 Del Method 06/25/23 07:54 36.5 C 68 18 159/84 H 97 Room Air
--- NOTE | 2023-06-26 16:24 | Hospitalist Progress Note ---
Date of Service June 26, 2023 Assessment & Plan (1) Generalized weakness: Plan: 82-year-old female with past medical history significant for idiopathic chronic gout, hyperlipidemia, hypothyroidism, history of CAD s/p stent, hypertension, diastolic dysfunction, GERD, history of dysphagia, history of inclusion body myositis, osteoarthritis, chronic inflammatory demyelinating polyneuritis, who was recently in the hospital for ambulatory dysfunction and was sent to rehab. Reportedly, patient signed out AMA from the rehab and went home. She reports that her daughter did not want her to be home. She was then brought to the hospital. Generalized weakness weakness UTI History of chronic inflammatory demyelinating polyneuritis and inclusion body myositis Patient recently signed out AMA from the rehab; unable to get inside her home. Urinalysis suggestive of infection Urine culture w/ no growth. Antibiotics was discontinued. Continue PT/OT while inpatient Left hand skin tear Skin tear over the left hand on dorsal aspect Wound care evaluated the patient Continue dressing change Chronic demyelinating pruritus inclusion body myositis: On prednisone; continue Chronic diastolic CHF: Currently euvolemic History of CAD s/p stent: On aspirin, statin and beta-laurie GERD: On Protonix, continue. Gout: Continue Allopurinol Hypertension: On amlodipine and metoprolol. Continue. Will monitor 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: On Synthyroid, continue. DVT prophylaxis: Heparin subcu CM working on placement. Medically stable for discharge Full code Patient seen in collaboration with Dr. Wheat. Please see addendum. I spent a total of 30 minutes coordinating, documenting and providing care for this patient excluding time spent in performance of separately billed services Admission and Anticipated Discharge Date Admission Date: June 13, 2023 Supervising Physician Co-Signing Physician Notes Patient seen and examined Agree with findings and plans as detailed by Advanced Practitioner and take full responsibility I spent a total of 15 minutes coordinating, documenting and providing care for this patient excluding time spent in performance of separately billed services Subjective Patient seen and examined in 350 bed 2 Sitting by the window, no new complaints overnight Denies any fever, chills, chest pain, shortness of breath, nausea, vomiting, abdominal pain, dysuria, diarrhea or constipation. Review of Systems Review of Systems: At least ten systems reviewed and negative except as noted in the HPI. Physical Exam Physical Exam: Gen: WD/WN, NAD, sitting in bedside chair, A&Ox3 HEENT: Normocephalic, atraumatic, conjunctivae moist, sclerae anicteric, mucous membranes moist Lung: Clear to Auscultation bilaterally, no wheezes/rales/rhonchi Heart: Regular rate, regular rhythm Abdomen: Soft, NT, ND +BS x 4 Extremities: no edema Skin: Warm, no rash Results & Data Results & Data Vital Signs (Past 12 Hours) Vital Signs Temp Pulse Pulse Resp BP BP Pulse Ox 06/26/23 14:28 36.7 C 70 18 114/81 96 06/26/23 12:47 36.8 C 65 14 116/76 96 06/26/23 06:58 36.6 C 57 L 16 121/71 96 O2 Del Method 06/26/23 14:28 Room Air 06/26/23 12:47 Room Air 06/26/23 06:58 Room Air
[2023-06-27] MEDS: POLYETHYLENE (MIRALAX) 17 GM PACK PO PRN (05:54)
--- NOTE | 2023-06-27 11:26 | Hospitalist Progress Note ---
Date of Service June 27, 2023 Assessment & Plan (1) Generalized weakness: Plan: 82-year-old female with past medical history significant for idiopathic chronic gout, hyperlipidemia, hypothyroidism, history of CAD s/p stent, hypertension, diastolic dysfunction, GERD, history of dysphagia, history of inclusion body myositis, osteoarthritis, chronic inflammatory demyelinating polyneuritis, who was recently in the hospital for ambulatory dysfunction and was sent to rehab. Reportedly, patient signed out AMA from the rehab and went home. She reports that her daughter did not want her to be home. She was then brought to the hospital. Generalized weakness weakness UTI History of chronic inflammatory demyelinating polyneuritis and inclusion body myositis Patient recently signed out AMA from the rehab; unable to get inside her home. Urinalysis suggestive of infection Urine culture w/ no growth. Antibiotics was discontinued. Continue PT/OT while inpatient Left hand skin tear Skin tear over the left hand on dorsal aspect Wound care evaluated the patient Continue dressing change/skin care Chronic demyelinating pruritus inclusion body myositis: On prednisone; continue Chronic diastolic CHF: Currently euvolemic History of CAD s/p stent: On aspirin, statin and beta-laurie GERD: On Protonix, continue. Gout: Continue Allopurinol Hypertension: On amlodipine and metoprolol. Continue. Will monitor 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: On Synthyroid, continue. DVT prophylaxis: Heparin subcu CM working on placement. Medically stable for discharge Full code I spent a total of 25 minutes coordinating, documenting and providing care for this patient excluding time spent in performance of separately billed services Admission and Anticipated Discharge Date Admission Date: June 13, 2023 Subjective Patient seen and examined No new complaints today Physical Exam Constitutional: + well hydrated; no acute distress Eyes: PERRL, conjunctivae normal, anicteric sclerae ENMT: external ear and nose normal, oropharynx normal Respiratory: normal respiratory effort, lungs clear to auscultation Cardiovascular: Rate/Rhythm: regular rate and regular rhythm S1 S2 Gastrointestinal (Abdomen): normal bowel sounds, soft, nontender, no hepatosplenomegaly Musculoskeletal: No pedal edema Neurologic: PERRL, EOMI, accommodation nl, no face palsy, no dysarthria Psychiatric: A+Ox3, euthymic affect Results & Data Results & Data Vital Signs (Past 12 Hours) Vital Signs Temp Pulse Resp BP Pulse Ox O2 Del Method 06/27/23 07:06 36.5 C 70 16 133/71 95 Room Air
--- NOTE | 2023-06-28 10:46 | Hospitalist Progress Note ---
Date of Service June 28, 2023 Assessment & Plan (1) Generalized weakness: Plan: 82-year-old female with past medical history significant for idiopathic chronic gout, hyperlipidemia, hypothyroidism, history of CAD s/p stent, hypertension, diastolic dysfunction, GERD, history of dysphagia, history of inclusion body myositis, osteoarthritis, chronic inflammatory demyelinating polyneuritis, who was recently in the hospital for ambulatory dysfunction and was sent to rehab. Reportedly, patient signed out AMA from the rehab and went home. She reports that her daughter did not want her to be home. She was then brought to the hospital. Generalized weakness weakness UTI History of chronic inflammatory demyelinating polyneuritis and inclusion body myositis Patient recently signed out AMA from the rehab; unable to get inside her home. Urinalysis suggestive of infection Urine culture w/ no growth. Antibiotics was discontinued. Continue PT/OT while inpatient Left hand skin tear Skin tear over the left hand on dorsal aspect Wound care evaluated the patient Continue dressing change/skin care Chronic demyelinating pruritus inclusion body myositis: On prednisone; continue Chronic diastolic CHF: Currently euvolemic History of CAD s/p stent: On aspirin, statin and beta-laurie GERD: On Protonix, continue. Gout: Continue Allopurinol Hypertension: On amlodipine and metoprolol. Continue. Will monitor 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: On Synthyroid, continue. DVT prophylaxis: Heparin subcu CM working on placement. Medically stable for discharge Full code I spent a total of 25 minutes coordinating, documenting and providing care for this patient excluding time spent in performance of separately billed services Admission and Anticipated Discharge Date Admission Date: June 13, 2023 Subjective Patient seen and examined No new compl Physical Exam Constitutional: + well hydrated; no acute distress Eyes: PERRL, conjunctivae normal, anicteric sclerae ENMT: external ear and nose normal, oropharynx normal Respiratory: normal respiratory effort, lungs clear to auscultation Cardiovascular: Rate/Rhythm: regular rate and regular rhythm S1 S2 Gastrointestinal (Abdomen): normal bowel sounds, soft, nontender, no hepa tosplenomegaly Musculoskeletal: No pedal edema Neurologic: PERRL, EOMI, accommodation nl, no face palsy, no dysarthria Psychiatric: A+Ox3, euthymic affect Results & Data Results & Data Vital Signs (Past 12 Hours) Vital Signs Temp Pulse Resp BP Pulse Ox O2 Del Method 06/28/23 07:06 36.5 C 57 L 16 118/77 95 Room Air
--- NOTE | 2023-06-29 12:53 | Hospitalist Progress Note ---
Date of Service June 29, 2023 Assessment & Plan (1) Generalized weakness: Plan: 82-year-old female with past medical history significant for idiopathic chronic gout, hyperlipidemia, hypothyroidism, history of CAD s/p stent, hypertension, diastolic dysfunction, GERD, history of dysphagia, history of inclusion body myositis, osteoarthritis, chronic inflammatory demyelinating polyneuritis, who was recently in the hospital for ambulatory dysfunction and was sent to rehab. Reportedly, patient signed out AMA from the rehab and went home. She reports that her daughter did not want her to be home. She was then brought to the hospital. Generalized weakness weakness UTI History of chronic inflammatory demyelinating polyneuritis and inclusion body myositis Patient recently signed out AMA from the rehab; unable to get inside her home. Urinalysis suggestive of infection Urine culture w/ no growth. Antibiotics was discontinued. Continue PT/OT while inpatient Left hand skin tear Skin tear over the left hand on dorsal aspect Wound care evaluated the patient Continue dressing change/skin care Chronic demyelinating pruritus inclusion body myositis: On prednisone; continue Chronic diastolic CHF: Currently euvolemic History of CAD s/p stent: On aspirin, statin and beta-laurie GERD: On Protonix, continue. Gout: Continue Allopurinol Hypertension: On amlodipine and metoprolol. Continue. Will monitor 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: On Synthyroid, continue. DVT prophylaxis: Heparin subcu CM working on placement. Medically stable for discharge Full code I spent a total of 25 minutes coordinating, documenting and providing care for this patient excluding time spent in performance of separately billed services Admission and Anticipated Discharge Date Admission Date: June 13, 2023 Subjective Patient seen and examined. No new complaints Physical Exam Constitutional: + well hydrated; no acute distress Eyes: PERRL, conjunctivae normal, anicteric sclerae ENMT: external ear and nose normal, oropharynx normal Respiratory: normal respiratory effort, lungs clear to auscultation Cardiovascular: Rate/Rhythm: regular rate and regular rhythm S1 S2 Gastrointestinal (Abdomen): normal bowel sounds, soft, nontender, no hepatosplenomegaly Musculoskeletal: No pedal edema Neurologic: PERRL, EOMI, accommodation nl, no face palsy, no dysarthria Psychiatric: A+Ox3, euthymic affect Results & Data Results & Data Vital Signs (Past 12 Hours) Vital Signs Temp Pulse Resp BP BP Pulse Ox O2 Del Method 06/29/23 12:19 72 17 129/83 97 Room Air 06/29/23 07:45 36.5 C 64 17 171/85 H 97 Room Air
--- NOTE | 2023-06-30 11:53 | Hospitalist Progress Note ---
Date of Service June 30, 2023 Assessment & Plan Admission and Anticipated Discharge Date Admission Date: June 13, 2023 Results & Data Results & Data Vital Signs (Past 12 Hours) Vital Signs Temp Pulse Resp BP Pulse Ox O2 Del Method 06/30/23 07:00 36.4 C L 62 12 131/83 98 Room Air
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
== END 2023-06-30 15:15 | DRG 690 ==
LOC: ED 17:24 → SUATTDRO 23:43 → 3W 23:43